=== PATIENT | female | born 1960 | race Caucasian/White ===

== ENCOUNTER → 2017-08-20 09:39 | Outpatient (CLI) | payer BC, SELFPAY ==
[2017-08-20 12:20] LABS: Absolute Lymphocyte Count 1.06 X10^3/ul (0.83-4.51); Absolute Neutrophil Count 2.3 X10^3/uL (2.0-7.7); Basophil# 0.01 X10^3/uL; Basophil% 0.3 % (0-1); Eosinophil# 0.15 X10^3/uL; Eosinophils% 3.9 % (0-5); Hemoglobin 12.2 g/dl (12.0-15.0); Lymphocyte # 1.06 X10^3/ul (4.0); Lymphocyte % 27.5 % (19-41); Mean Corp Hgb Conc 33.9 g/gl (32-36); Mean Corpuscular Hgb 31.4 pg (27.0-32.0); Mean Corpuscular Volume 92.5 fL (81-99); Mean Platelet Vol. 10.6 fl (6.2-12.0); Monocyte# 0.37 X10^3/uL; Monocyte% 9.6 % (0-10); Neutrophil # 2.26 X10^3/uL (2.7-7.7); Neutrophil % 58.4 % (47-70); Platelet Count 64 K/mm3 (150-450); RBC Distribution Width CV 14.1 % (11.6-14.6); RBC Distribution Width SD 46.6 fl (35.1-43.9); Red Blood Count 3.89 M/mm3 (4.2-5.4); White Blood Count 3.9 K/mm3 (4.4-11.0)
[2017-08-20 12:31] LABS: Ferritin 23 ng/mL (8-252); Iron 92 ug/dL (50-170); Iron Binding Capacity,Total 303 ug/dL (250-450); PERCENT IRON SATURATION 30.4 % (15.0-55.0)
[2017-08-20 12:40] LABS: POSITIVE COUNT NO; POSITIVE DIFFERENTIAL NO; POSITIVE MORPHOLOGY NO
[2017-08-20 17:40] LABS: Xtra Tube EP Lab EXTRA TUBE
== END ==
PROVIDERS: Family Provider Family Medicine; PCP Family Medicine; Visit Provider Internal Medicine Hematology & Oncology
DX: D50.9 Iron deficiency anemia, unspecified (principal); D69.6 Thrombocytopenia, unspecified
CPT/HCPCS: 36415; 82728; 83540; 83550; 85025

== ENCOUNTER → 2017-10-21 09:51 | Outpatient (CLI) | payer BC, SELFPAY ==
[2017-10-21 13:00] LABS: Cholesterol 143 mg/dL (200); High Density Lipoprotein 40 mg/dL; Triglycerides 131 mg/dL; Very Low Density Lipoprotein 26 mg/dL (5-40)
== END ==
PROVIDERS: Family Provider Family Medicine; PCP Family Medicine; Visit Provider Family Medicine
DX: E11.65 Type 2 diabetes mellitus with hyperglycemia (principal)
CPT/HCPCS: 36415; 80061; 84443

== ENCOUNTER → 2018-02-25 10:13 | Outpatient (CLI) | payer BC, SELFPAY ==
[2018-02-25 12:27] LABS: Absolute Lymphocyte Count 1.03 X10^3/ul (0.83-4.51); Absolute Neutrophil Count 2.4 X10^3/uL (2.0-7.7); Basophil# 0.01 X10^3/uL; Basophil% 0.3 % (0-1); Eosinophil# 0.13 X10^3/uL; Eosinophils% 3.3 % (0-5); Hematocrit 38.3 % (37-47); Hemoglobin 12.5 g/dl (12.0-15.0); Lymphocyte # 1.03 X10^3/ul (4.0); Lymphocyte % 26.3 % (19-41); Mean Corp Hgb Conc 32.6 g/gl (32-36); Mean Corpuscular Hgb 31.4 pg (27.0-32.0); Mean Corpuscular Volume 96.2 fL (81-99); Mean Platelet Vol. 10.9 fl (6.2-12.0); Monocyte# 0.31 X10^3/uL; Monocyte% 7.9 % (0-10); Neutrophil # 2.43 X10^3/uL (2.7-7.7); Neutrophil % 62.2 % (47-70); Platelet Count 52 K/mm3 (150-450); RBC Distribution Width CV 13.4 % (11.6-14.6); RBC Distribution Width SD 46.7 fl (35.1-43.9); Red Blood Count 3.98 M/mm3 (4.2-5.4); White Blood Count 3.9 K/mm3 (4.4-11.0)
[2018-02-25 12:34] LABS: POSITIVE COUNT NO; POSITIVE DIFFERENTIAL NO; POSITIVE MORPHOLOGY NO
[2018-02-25 12:46] LABS: Ferritin 40 ng/mL (8-252); Iron 52 ug/dL (50-170); Iron Binding Capacity,Total 299 ug/dL (250-450); PERCENT IRON SATURATION 17.4 % (15.0-55.0)
== END ==
PROVIDERS: Internal Medicine Hematology & Oncology; Family Provider Family Medicine; PCP Family Medicine; Visit Provider Family Medicine
DX: D89.0 Polyclonal hypergammaglobulinemia (principal); D50.9 Iron deficiency anemia, unspecified; D61.818 Other pancytopenia
CPT/HCPCS: 36415; 82728; 83540; 83550; 85025

== ENCOUNTER → 2018-07-27 10:02 | Outpatient (CLI) | payer BC, SELFPAY ==
[2018-07-27 12:35] LABS: Hemoglobin A1c 5.9 % (4.2-6.3)
[2018-07-27 12:40] LABS: ALB/GLOB Ratio 0.8 RATIO (0.9-2.4); AST(SGOT) 38 U/L (15-37); Alanine Aminotransfer ALT/SGPT 29 U/L (13-56); Albumin, Serum 2.8 g/dL (3.2-5.0); Alkaline Phosphatase 94 U/L (45-117); Anion Gap 7 (5-15); BUN 17 mg/dL (7-18); BUN/Creat Ratio 17.6 RATIO (10-20); Calcium,Total 8.5 mg/dL (8.5-10.1); Chloride 112 mmol/L (98-107); Creatinine, Serum 0.96 mg/dL (0.55-1.02); EST Glomerular Filtration Rate 64 mL/min (>60); Est Glom Filt Rate - Afr Amer 77 mL/min (>60); Globulin 3.4 g/dL (2.2-4.2); Glucose 108 mg/dL (74-106); Protein, Total 6.2 g/dL (6.4-8.2); Sodium Level 143 mmol/L (136-145); Thyroid Stim Hormone (TSH) 3.44 uIU/mL (0.358-3.74)
== END ==
PROVIDERS: Family Provider Family Medicine; PCP Family Medicine; Visit Provider Family Medicine
DX: E11.8 Type 2 diabetes mellitus with unspecified complications (principal)
CPT/HCPCS: 36415; 80053; 83036; 84443

== ENCOUNTER → 2018-08-31 10:23 | Outpatient (CLI) | payer BC, SELFPAY ==
[2018-03-04 09:09] VITALS: BMI 44.4
[2018-08-31 12:13] LABS: Absolute Lymphocyte Count 1.14 X10^3/ul (0.83-4.51); Absolute Neutrophil Count 2.9 X10^3/uL (2.0-7.7); Basophil# 0.01 X10^3/uL; Basophil% 0.2 % (0-1); Eosinophil# 0.16 X10^3/uL; Eosinophils% 3.6 % (0-5); Lymphocyte # 1.14 X10^3/ul (4.0); Lymphocyte % 25.7 % (19-41); Mean Corp Hgb Conc 32.5 g/gl (32-36); Mean Corpuscular Volume 98.5 fL (81-99); Mean Platelet Vol. 10.4 fl (6.2-12.0); Monocyte# 0.27 X10^3/uL; Monocyte% 6.1 % (0-10); Neutrophil # 2.86 X10^3/uL (2.7-7.7); Neutrophil % 64.4 % (47-70); POSITIVE COUNT NO; POSITIVE DIFFERENTIAL NO; POSITIVE MORPHOLOGY NO; Platelet Count 54 K/mm3 (150-450); RBC Distribution Width CV 13.9 % (11.6-14.6); RBC Distribution Width SD 49.8 fl (35.1-43.9); Red Blood Count 4.06 M/mm3 (4.2-5.4); White Blood Count 4.4 K/mm3 (4.4-11.0)
[2018-08-31 12:55] LABS: Vitamin B12 973 pg/mL (211-911)
[2018-08-31 12:57] LABS: Ferritin 51 ng/mL (8-252); Iron 102 ug/dL (50-170); Iron Binding Capacity,Total 295 ug/dL (250-450); PERCENT IRON SATURATION 34.6 % (15.0-55.0)
== END ==
PROVIDERS: Family Provider Family Medicine; PCP Family Medicine; Referring Provider Family Medicine; Visit Provider Internal Medicine Hematology & Oncology
DX: D61.818 Other pancytopenia (principal); D64.9 Anemia, unspecified; D89.0 Polyclonal hypergammaglobulinemia
CPT/HCPCS: 36415; 82607; 82728; 83540; 83550; 85025

== ENCOUNTER → 2018-11-09 10:36 | Outpatient (CLI) | payer BC, SELFPAY ==
[2018-09-02 15:34] VITALS: BMI 47.9
[2018-11-09 13:06] LABS: ALB/GLOB Ratio 0.8 RATIO (0.9-2.4); AST(SGOT) 31 U/L (15-37); Alanine Aminotransfer ALT/SGPT 28 U/L (13-56); Albumin, Serum 2.8 g/dL (3.2-5.0); Alkaline Phosphatase 99 U/L (45-117); Anion Gap 6 (5-15); BUN 15 mg/dL (7-18); BUN/Creat Ratio 16.1 RATIO (10-20); Calcium,Total 8.4 mg/dL (8.5-10.1); Chloride 112 mmol/L (98-107); Creatinine, Serum 0.93 mg/dL (0.55-1.02); EST Glomerular Filtration Rate 66 mL/min (>60); Est Glom Filt Rate - Afr Amer 80 mL/min (>60); Globulin 3.4 g/dL (2.2-4.2); Glucose 121 mg/dL (74-106); Protein, Total 6.2 g/dL (6.4-8.2); Sodium Level 143 mmol/L (136-145); Thyroid Stim Hormone (TSH) 2.58 uIU/mL (0.358-3.74)
== END ==
PROVIDERS: Family Provider Family Medicine; PCP Family Medicine; Referring Provider Family Medicine; Visit Provider Family Medicine
DX: K76.0 Fatty (change of) liver, not elsewhere classified (principal)
CPT/HCPCS: 36415; 80053; 84443

== ENCOUNTER → 2018-11-18 16:52 | Outpatient (CLI) | payer BC, SELFPAY ==
[2018-09-02 15:34] VITALS: BMI 47.9
--- NOTE | 2018-11-18 16:55 | RAD_ITS ---
STUDY: X-RAY CHEST REASON FOR EXAM: Female, 58 years old. Cough. TECHNIQUE: PA and lateral views of the chest. COMPARISON: April 27, 2017. FINDINGS: There is mildly decreased inspiratory effort when compared to prior study. There is no acute infiltrate or mass. There is no demonstrated pleural abnormality. The heart is mildly enlarged. Normal mediastinum and ruben. Normal visualized pulmonary arteries. Normal visualized aortic arch and descending thoracic aorta. There are diffuse degenerative changes of the visualized thoracic spine. Normal visualized ribs, clavicles, and shoulders. There is no demonstrated abnormality of the visualized soft tissue structures of the upper abdomen. RAD/Chest PA and Lateral IMPRESSION: Mild cardiomegaly without acute pulmonary disease. Electronically Signed: Joseph Bates DO at 19:40 EDT Tel [phone], Service support ,
[2018-11-18 17:34] LABS: Absolute Lymphocyte Count 0.59 X10^3/ul (0.83-4.51); Absolute Neutrophil Count 2.3 X10^3/uL (2.0-7.7); Eosinophil# 0.02 X10^3/uL; Eosinophils% 0.6 % (0-5); Hematocrit 39.1 % (37-47); Hemoglobin 13.6 g/dl (12.0-15.0); Lymphocyte # 0.59 X10^3/ul (4.0); Lymphocyte % 17.7 % (19-41); Mean Corp Hgb Conc 34.8 g/gl (32-36); Mean Corpuscular Hgb 32.4 pg (27.0-32.0); Mean Corpuscular Volume 93.1 fL (81-99); Mean Platelet Vol. 10.6 fl (6.2-12.0); Monocyte# 0.39 X10^3/uL; Monocyte% 11.7 % (0-10); Neutrophil # 2.34 X10^3/uL (2.7-7.7); RBC Distribution Width CV 13.3 % (11.6-14.6); White Blood Count 3.3 K/mm3 (4.4-11.0)
[2018-11-18 17:44] LABS: Differential Indicated SCAN CRITERIA MET; POSITIVE COUNT YES; POSITIVE DIFFERENTIAL YES; POSITIVE MORPHOLOGY NO
[2018-11-18 17:51] LABS: ALB/GLOB Ratio 0.8 RATIO (0.9-2.4); AST(SGOT) 50 U/L (15-37); Alanine Aminotransfer ALT/SGPT 37 U/L (13-56); Albumin, Serum 2.8 g/dL (3.2-5.0); Alkaline Phosphatase 102 U/L (45-117); Anion Gap 6 (5-15); BUN 13 mg/dL (7-18); BUN/Creat Ratio 10.6 RATIO (10-20); Calcium,Total 8.4 mg/dL (8.5-10.1); Chloride 105 mmol/L (98-107); Creatinine, Serum 1.23 mg/dL (0.55-1.02); EST Glomerular Filtration Rate 48 mL/min (>60); Est Glom Filt Rate - Afr Amer 58 mL/min (>60); Globulin 3.4 g/dL (2.2-4.2); Glucose 120 mg/dL (74-106); Potassium 4.2 mmol/L (3.5-5.1); Protein, Total 6.2 g/dL (6.4-8.2); Sodium Level 138 mmol/L (136-145)
[2018-11-18 17:57] LABS: Platelet Count 44 K/mm3 (150-450)
[2018-11-18 18:03] LABS: Anisocytosis RARE; Macrocytosis RARE; Platelet Estimate MKD DEC (ADEQ)
[2018-11-22 09:10] LABS: Pathologist Review Reviewed
== END ==
PROVIDERS: Family Provider Family Medicine; PCP Family Medicine; Referring Provider Family Medicine; Visit Provider Family Medicine
DX: R10.11 Right upper quadrant pain (principal); R05 Cough; R68.89 Other general symptoms and signs
CPT/HCPCS: 36415; 71046; 80053; 85025; 86140

== ENCOUNTER → 2019-02-16 16:10 | Outpatient (CLI) | payer BC, SELFPAY ==
[2018-09-02 15:34] VITALS: BMI 47.9
[2019-02-16 17:41] LABS: International Normalized Ratio 1.1; Prothrombin Time (Protime)PT. 14.1 SECONDS (11.7-14.9)
[2019-02-16 17:42] LABS: Partial Thromboplast Time 32.5 Seconds (24.1-36.2)
[2019-02-16 17:52] LABS: ALB/GLOB Ratio 0.7 RATIO (0.9-2.4); AST(SGOT) 26 U/L (15-37); Alanine Aminotransfer ALT/SGPT 20 U/L (13-56); Albumin, Serum 2.6 g/dL (3.2-5.0); Alkaline Phosphatase 109 U/L (45-117); Anion Gap 5 (5-15); BUN 17 mg/dL (7-18); BUN/Creat Ratio 16.2 RATIO (10-20); Calcium,Total 9.1 mg/dL (8.5-10.1); Chloride 110 mmol/L (98-107); Creatinine, Serum 1.05 mg/dL (0.55-1.02); EST Glomerular Filtration Rate 58 mL/min (>60); Est Glom Filt Rate - Afr Amer 70 mL/min (>60); Globulin 3.8 g/dL (2.2-4.2); Glucose 153 mg/dL (74-106); Potassium 3.8 mmol/L (3.5-5.1); Protein, Total 6.4 g/dL (6.4-8.2); Sodium Level 142 mmol/L (136-145)
[2019-02-19 09:32] LABS: ANTINUCLEAR ANTIBODIES DIRECT Negative (Negative); Anti-Mitochondrial AB <20.0 Units (0.0-20.0)
[2019-02-22 08:22] LABS: AFP, Tumor Marker 3.2 ng/mL (0.0-8.3); Anti-Smooth Muscle ABS 6 Units (0-19)
== END ==
PROVIDERS: Family Provider Family Medicine; PCP Family Medicine; Referring Provider Family Medicine; Visit Provider Internal Medicine Gastroenterology
DX: K74.60 Unspecified cirrhosis of liver (principal)
CPT/HCPCS: 36415; 80053; 82105; 83516; 85610; 85730; 86038

== ENCOUNTER → 2019-02-23 14:48 | Outpatient (CLI) | payer BC, SELFPAY ==
[2018-09-02 15:34] VITALS: BMI 47.9
--- NOTE | 2019-02-23 15:06 | CT_ITS ---
STUDY: CT ABDOMEN WITH CONTRAST REASON FOR EXAM: Female, 58 years old. Cirrhosis. Low platelets. RADIATION DOSAGE (If Supplied By Facility): CTDIvol = ( 17.01 ) mGy, DLP = ( 957.59 ) mGycm TECHNIQUE: Transaxial images were obtained post I.V. administration of 100mL IV Isovue 300, and oral contrast. Sagittal and coronal images were reconstructed. Individualized dose optimization techniques were used for this CT. COMPARISON: None. FINDINGS: The visualized lung bases are unremarkable. The visualized portions of the heart are within normal limits. Reduced size of the liver with nodular surface features consistent with cirrhosis. The portal vein is patent with a diameter of 13 mm The gallbladder is contracted. Splenomegaly with a coronal length of 17 cm. Marked enlargement and tortuosity of splenic veins, gastric and esophageal varices and a splenic collateral to the left renal vein/intrinsic splenorenal shunt. Normal pancreas. Normal bilateral adrenal glands. Normal right kidney. Normal left kidney. Normal visualized stomach. Normal small intestine. Normal colon. Normal appendix. Mild calcified plaque of the aorta Normal inferior vena cava. Normal retroperitoneum. Normal abdominal wall. Normal osseous structures. CT/Abdomen WITH IV Contrast IMPRESSION: Small liver size with nodular surface features consistent with cirrhosis. Patent portal vein with a diameter of 13 mm. Splenomegaly with a coronal length of 17 cm. Splenic, gastric and esophageal varices. Intrinsic splenorenal shunt/splenic collateral veins to the left renal vein. Negative for ascites. No acute bowel related findings. Negative for evidence of obstruction, perforation or inflammatory bowel changes. Normal pancreas. Normal kidneys bilaterally. Electronically Signed: Jade Medina MD at 16:02 EDT , Service support ,
== END ==
PROVIDERS: Family Provider Family Medicine; PCP Family Medicine; Referring Provider Internal Medicine Gastroenterology; Visit Provider Internal Medicine Gastroenterology
DX: K74.60 Unspecified cirrhosis of liver (principal); D69.6 Thrombocytopenia, unspecified
CPT/HCPCS: 74160; Q9967

== ENCOUNTER → 2019-02-28 11:22 | Outpatient (CLI) | payer BC, SELFPAY ==
[2018-09-02 15:34] VITALS: BMI 47.9
[2019-02-28 12:27] LABS: Absolute Neutrophil Count 2.7 X10^3/uL (2.0-7.7); Basophil# 0.02 X10^3/uL; Basophil% 0.4 % (0-1); Eosinophil# 0.17 X10^3/uL; Eosinophils% 3.8 % (0-5); Hematocrit 39.8 % (37-47); Hemoglobin 13.3 g/dL (12.0-15.0); Lymphocyte % 29.2 % (19-41); Mean Corp Hgb Conc 33.4 g/dL (32-36); Mean Corpuscular Hgb 32.6 pg (27.0-32.0); Mean Corpuscular Volume 97.5 fL (81-99); Mean Platelet Vol. 10.8 fl (6.2-12.0); Monocyte# 0.28 X10^3/uL; Monocyte% 6.3 % (0-10); NRBC Flagged by Analyzer 0 % (0-5); Neutrophil # 2.67 X10^3/uL (2.7-7.7); Neutrophil % 60.1 % (47-70); Platelet Count 52 K/mm3 (150-450); RBC Distribution Width CV 12.7 % (11.6-14.6); RBC Distribution Width SD 45.7 fl (35.1-43.9); Red Blood Count 4.08 M/mm3 (4.2-5.4); White Blood Count 4.5 K/mm3 (4.4-11.0)
[2019-02-28 19:27] LABS: Xtra Tube EP Lab EXTRA TUBE
== END ==
PROVIDERS: Family Provider Family Medicine; PCP Family Medicine; Referring Provider Family Medicine; Visit Provider Internal Medicine Hematology & Oncology
DX: D69.6 Thrombocytopenia, unspecified (principal)
CPT/HCPCS: 36415; 85025

== ENCOUNTER → 2019-04-25 12:21 | Outpatient (CLI) | payer BC, SELFPAY ==
[2019-03-10 13:03] VITALS: BMI 48.7
[2019-04-25 14:13] LABS: Absolute Lymphocyte Count 1.39 X10^3/uL (0.83-4.51); Absolute Neutrophil Count 3.2 X10^3/uL (2.0-7.7); Basophil# 0.03 X10^3/uL; Basophil% 0.6 % (0-1); Eosinophil# 0.14 X10^3/uL; Eosinophils% 2.7 % (0-5); Hematocrit 38.9 % (37-47); Hemoglobin 12.8 g/dL (12.0-15.0); Lymphocyte # 1.39 X10^3/ul (4.0); Lymphocyte % 26.7 % (19-41); Mean Corp Hgb Conc 32.9 g/dL (32-36); Mean Corpuscular Hgb 32.1 pg (27.0-32.0); Mean Corpuscular Volume 97.5 fL (81-99); Mean Platelet Vol. 10.9 fl (6.2-12.0); Monocyte# 0.41 X10^3/uL; Monocyte% 7.9 % (0-10); NRBC Flagged by Analyzer 0 % (0-5); Neutrophil # 3.23 X10^3/uL (2.7-7.7); Neutrophil % 61.9 % (47-70); POSITIVE COUNT YES; Platelet Count 54 K/mm3 (150-450); RBC Distribution Width CV 13.3 % (11.6-14.6); RBC Distribution Width SD 47.9 fl (35.1-43.9); Red Blood Count 3.99 M/mm3 (4.2-5.4); White Blood Count 5.2 K/mm3 (4.4-11.0)
[2019-04-25 14:14] LABS: Differential Indicated SCAN CRITERIA MET
[2019-04-25 14:34] LABS: Vitamin B12 1025 pg/mL (211-911)
[2019-04-25 14:40] LABS: ALB/GLOB Ratio 0.8 RATIO (0.9-2.4); AST(SGOT) 36 U/L (15-37); Alanine Aminotransfer ALT/SGPT 24 U/L (13-56); Albumin, Serum 2.9 g/dL (3.2-5.0); Alkaline Phosphatase 85 U/L (45-117); Anion Gap 8 (5-15); BUN 22 mg/dL (7-18); BUN/Creat Ratio 18.5 RATIO (10-20); Calcium,Total 8.6 mg/dL (8.5-10.1); Chloride 109 mmol/L (98-107); Creatinine, Serum 1.19 mg/dL (0.55-1.02); EST Glomerular Filtration Rate 50 mL/min (>60); Est Glom Filt Rate - Afr Amer 60 mL/min (>60); Ferritin 95 ng/mL (8-252); Globulin 3.7 g/dL (2.2-4.2); Glucose 95 mg/dL (74-106); Magnesium 2.1 mg/dL (1.6-2.6); Potassium 4.4 mmol/L (3.5-5.1); Protein, Total 6.6 g/dL (6.4-8.2); Sodium Level 142 mmol/L (136-145); Thyroid Stim Hormone (TSH) 2.85 uIU/mL (0.358-3.74)
== END ==
PROVIDERS: Family Provider Family Medicine; PCP Family Medicine; Visit Provider Family Medicine
DX: K76.0 Fatty (change of) liver, not elsewhere classified (principal); R20.2 Paresthesia of skin; R60.9 Edema, unspecified
CPT/HCPCS: 36415; 80053; 82607; 82728; 82746; 83735; 84443; 85025

== ENCOUNTER 2019-08-09 14:43 | Emergency (ER) | payer BC, SELFPAY ==
[2019-03-10 13:03] VITALS: BMI 48.7
[2019-08-09 14:45] VITALS: BP 116/60; PULSE 104; RESP 18; TEMP 36.6; O2SAT 97; BMI 48.1
[2019-08-09 14:54] VITALS: BP 116/60; PULSE 104; RESP 16; RESP 18; TEMP 36.6; O2SAT 97
--- NOTE | 2019-08-09 15:10 | VDLE_ITS ---
Reason For Study: pain RIGHT LEFT GSV is normal. CFV is compressible, spontaneous, phasic, CFV is compressible, spontaneous, phasic, competent, and demonstrates normal competent and demonstrates normal augmentation. augmentation. FV is compressible, spontaneous, phasic, competent and demonstrates normal augmentation. POP V is compressible, spontaneous, phasic, competent and demonstrates normal augmentation. T/P Trunk is compressible. PTV is compressible. RT PerV is compressible. Procedure Exam performed portable in ED. The exam was diagnostic. A preliminary report was called and/or faxed to ED staff. Interpretation Summary There is no evidence of right lower extremity deep vein thrombosis. Right great saphenous vein appears patent and compressible segmentally. Patent and compressible left common femoral vein Ordering Physician: Genesis Diamond Performed By: Vladislav Mohamud RVT
--- NOTE | 2019-08-09 15:19 | ED.DCSUM_ITS ---
- ER Visit Summary Date of Service: 08/09/19 Chief Complaint: [Pain and swelling to the right leg] History of Present Illness: The patient is a 58 F [presents to the emergency department complaint of pain and swelling to the right leg that started 5 days ago. Patient states that the leg was more red than it currently is. She will like maybe is gotten a little bit better in the last couple of days. She denies any chest pain or shortness of breath. Patient was told by her primary care physician to come in and get evaluated. She denies recent travel or surgery. No prior history of PE or DVT. Patient does have history of low platelet count. Patient denies any trauma to her leg. Patient has history of diabetes, anemia, gastritis, and pancytopenia.] Physical Examination: [HEENT-PERRLA, EOMI. Cranial nerves II through XII grossly intact. TMs clear. Mucous membranes moist. No adenopathy. Cardiovascular-regular rate and rhythm without murmur or ectopy Lungs-clear to auscultation, chest wall stable without crepitus or subcu emphysema Abdomen-normoactive bowel sounds, soft, nontender, no rebound or rigidity, no peritoneal signs. Extremities-intact ?4, normal range of motion, normal pulses. Right leg-patient does have soft tissue swelling noted laterally over the calf with some induration noted as well as posterior aspect of the calf. No significant discoloration noted to the skin. No significant erythema or warmth. Patient has normal dorsal pedal and posterior tibial pulses as well as popliteal pulses. No ropes or cords palpated.] Test Results: [CBC with differential obtained showed a white count 6.6, hemoglobin 13, hematocrit 39, platelet 72,000. Her thrombocytopenia is chronic and actually her platelet count is higher than it has been chronically. Chemistries were unremarkable. BUN was 24 and creatinine 1.34. Venous Doppler of the right lower extremity obtained was negative for DVT.] Emergency Department Course and Treatment: [Case was discussed with patient's primary care physician Dr. Deni Daily who will see patient in follow-up in the office.] Treatment Plan: [Follow-up with primary care physician in 5 to 7 days. Patient advised to elevate the extremity and use Tylenol for discomfort I suspect patient likely has soft tissue hematoma from spontaneous rupture of blood vessel versus partial muscle tear.] Disposition: [Discharged home in stable condition.] Impression: [Right calf pain] This note was generated with [employer] dictation software. It may contain incorrect words, spelling, and punctuation that were not noted in review of the chart prior to signing ED Disposition - Plan for ED Patient: Referrals: Deni Daily MD [Primary Care Provider] -
[2019-08-09 15:34] LABS: Absolute Lymphocyte Count 1.44 X10^3/uL (0.83-4.51); Absolute Neutrophil Count 4.4 X10^3/uL (2.0-7.7); Basophil# 0.03 X10^3/uL; Basophil% 0.5 % (0-1); Eosinophil# 0.12 X10^3/uL; Eosinophils% 1.8 % (0-5); Hematocrit 39.2 % (37-47); Hemoglobin 13.4 g/dL (12.0-15.0); Lymphocyte # 1.44 X10^3/ul (4.0); Lymphocyte % 21.7 % (19-41); Mean Corp Hgb Conc 34.2 g/dL (32-36); Mean Corpuscular Hgb 33.2 pg (27.0-32.0); Mean Platelet Vol. 10.4 fl (6.2-12.0); Monocyte# 0.59 X10^3/uL; Monocyte% 8.9 % (0-10); NRBC Flagged by Analyzer 0 % (0-5); Neutrophil # 4.42 X10^3/uL (2.7-7.7); Neutrophil % 66.6 % (47-70); POSITIVE COUNT YES; Platelet Count 72 K/mm3 (150-450); RBC Distribution Width SD 46.5 fl (35.1-43.9); Red Blood Count 4.04 M/mm3 (4.2-5.4); White Blood Count 6.6 K/mm3 (4.4-11.0)
[2019-08-09 15:52] LABS: Differential Indicated SCAN CRITERIA MET
[2019-08-09 15:56] LABS: Anion Gap 6 (5-15); BUN 24 mg/dL (7-18); BUN/Creat Ratio 17.9 RATIO (10-20); Calcium,Total 9.2 mg/dL (8.5-10.1); Chloride 106 mmol/L (98-107); Creatinine, Serum 1.34 mg/dL (0.55-1.02); EST Glomerular Filtration Rate 43 mL/min (>60); Est Glom Filt Rate - Afr Amer 52 mL/min (>60); Estimated Creatinine Clearance 37.08 ml/min; Glucose 113 mg/dL (74-106); Potassium 4.6 mmol/L (3.5-5.1); Sodium Level 139 mmol/L (136-145)
[2019-08-09 15:57] LABS: Anisocytosis RARE; Macrocytosis RARE; Platelet Estimate MOD DEC (ADEQ); Red Cell Morphology N CHROM NORMAL (NORM C&C)
[2019-08-09 15:58] LABS: Platelet Morphology LARGE
--- NOTE | 2019-08-09 16:09 | ED.DEP ---
ED Disposition - Plan for ED Patient: Instructions: ED Peripheral Edema, Bilateral, Hematoma Referrals: Deni Daily MD [Primary Care Provider] - 5-7 Days
[2019-08-09 16:14] VITALS: BP 134/68; PULSE 71; RESP 16; O2SAT 97
== END 2019-08-09 16:15 | disposition home or self-care (01) ==
LOC: ED 15:43
PROVIDERS: Emergency Provider Emergency Medicine; PCP Family Medicine
DX: M79.661 Pain in right lower leg (principal); E11.9 Type 2 diabetes mellitus without complications; D61.818 Other pancytopenia; Z79.84 Long term (current) use of oral 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 drugs
CPT/HCPCS: 80048; 85025; 93971; 99283

== ENCOUNTER → 2019-12-19 08:54 | Outpatient (CLI) | payer BC, SELFPAY ==
--- NOTE | 2019-12-19 08:58 | US_ITS ---
STUDY: ABDOMINAL ULTRASOUND - RIGHT UPPER QUADRANT REASON FOR VISIT: Female, 59 years old CIRRHOSIS TECHNIQUE: Ultrasound evaluation of the right upper quadrant was performed with real-time and static knight-scale imaging. TECHNICAL QUALITY: Adequate. COMPARISON: None. FINDINGS: Liver: The liver measures 15.5 cm. There is increased echogenicity consistent with fatty infiltration. The bile ducts are within normal limits. There is hepatic color flow. The direction of portal flow is hepatopetal. There is no demonstrated mass lesion. The liver is lobular in contour. Gallbladder: The patient is status post cholecystectomy. Common Bile Duct (C.B.D.): The common bile duct measures 2.7 mm. Pancreas: Normal size of the head, body and tail of the pancreas. There is normal echogenicity of the pancreas. There is no demonstrated pancreatic mass or cyst. Right Kidney: Normal size of the right kidney. The right kidney measures 10.2 x 5.4 x 4.2 cm. Normal renal cortex. The right cortex measures 1.0 cm. There is an 8 x 7 x 5 mm right renal cyst. There is no right hydronephrosis. US/Liver IMPRESSION: Increased hepatic echogenicity which may represent fatty replacement or fibrosis. The liver is lobular in contour. Status post cholecystectomy. Small right renal cyst. There is no evidence of ascites. Electronically Signed: Sohan Cerna MD at 19:44 EDT , Service support ,
== END ==
PROVIDERS: PCP Family Medicine; Referring Provider Internal Medicine Gastroenterology; Visit Provider Internal Medicine Gastroenterology
DX: K74.60 Unspecified cirrhosis of liver (principal)
CPT/HCPCS: 76705

== ENCOUNTER → 2020-01-20 15:01 | Outpatient (CLI) | payer BC, SELFPAY ==
[2020-01-20 17:33] LABS: ALB/GLOB Ratio 0.7 RATIO (0.9-2.4); AST(SGOT) 30 U/L (15-37); Alanine Aminotransfer ALT/SGPT 29 U/L (13-56); Albumin, Serum 2.6 g/dL (3.2-5.0); Alkaline Phosphatase 102 U/L (45-117); Anion Gap 3 (5-15); BUN 12 mg/dL (7-18); Calcium,Total 8.6 mg/dL (8.5-10.1); Chloride 111 mmol/L (98-107); EST Glomerular Filtration Rate 61 mL/min (>60); Est Glom Filt Rate - Afr Amer 74 mL/min (>60); Globulin 3.5 g/dL (2.2-4.2); Glucose 154 mg/dL (74-106); Potassium 3.8 mmol/L (3.5-5.1); Protein, Total 6.1 g/dL (6.4-8.2); Sodium Level 142 mmol/L (136-145)
[2020-01-20 17:39] LABS: International Normalized Ratio 1.3; Prothrombin Time (Protime)PT. 15.4 SECONDS (11.7-14.9)
[2020-01-20 17:40] LABS: Partial Thromboplast Time 33.5 Seconds (24.1-36.2)
[2020-01-23 04:42] LABS: AFP, Tumor Marker 3.8 ng/mL (0.0-8.3)
== END ==
PROVIDERS: PCP Family Medicine; Referring Provider Family Medicine; Visit Provider Internal Medicine Gastroenterology
DX: K74.60 Unspecified cirrhosis of liver (principal)
CPT/HCPCS: 36415; 80053; 82105; 85610; 85730

== ENCOUNTER → 2020-04-30 15:01 | Outpatient (CLI) | payer BC, SELFPAY ==
[2020-04-30 17:45] LABS: Absolute Lymphocyte Count 1.28 X10^3/uL (0.83-4.51); Basophil# 0.03 X10^3/uL; Basophil% 0.4 % (0-1); Eosinophil# 0.18 X10^3/uL; Eosinophils% 2.6 % (0-5); Hematocrit 40.6 % (37-47); Hemoglobin 13.5 g/dL (12.0-15.0); Lymphocyte # 1.28 X10^3/ul (4.0); Lymphocyte % 18.3 % (19-41); Mean Corp Hgb Conc 33.3 g/dL (32-36); Mean Corpuscular Hgb 33.3 pg (27.0-32.0); Mean Corpuscular Volume 100.2 fL (81-99); Mean Platelet Vol. 11.6 fl (6.2-12.0); Monocyte# 0.51 X10^3/uL; Monocyte% 7.3 % (0-10); NRBC Flagged by Analyzer 0 % (0-5); Neutrophil # 4.99 X10^3/uL (2.7-7.7); Neutrophil % 71.1 % (47-70); POSITIVE COUNT YES; Platelet Count 67 K/mm3 (150-450); RBC Distribution Width CV 13.1 % (11.6-14.6); Red Blood Count 4.05 M/mm3 (4.2-5.4)
[2020-04-30 17:56] LABS: International Normalized Ratio 1.1; Prothrombin Time (Protime)PT. 13.7 SECONDS (11.7-14.9)
[2020-04-30 18:05] LABS: Differential Indicated SCAN CRITERIA MET
[2020-04-30 18:09] LABS: ALB/GLOB Ratio 0.8 RATIO (0.9-2.4); AST(SGOT) 29 U/L (15-37); Alanine Aminotransfer ALT/SGPT 31 U/L (13-56); Alkaline Phosphatase 84 U/L (45-117); Anion Gap 7 (5-15); BUN 46 mg/dL (7-18); BUN/Creat Ratio 20.5 RATIO (10-20); Calcium,Total 9.5 mg/dL (8.5-10.1); Chloride 102 mmol/L (98-107); Creatinine, Serum 2.24 mg/dL (0.55-1.02); EST Glomerular Filtration Rate 24 mL/min (>60); Est Glom Filt Rate - Afr Amer 29 mL/min (>60); Globulin 3.8 g/dL (2.2-4.2); Glucose 118 mg/dL (74-106); Potassium 4.3 mmol/L (3.5-5.1); Protein, Total 6.8 g/dL (6.4-8.2); Sodium Level 136 mmol/L (136-145)
[2020-04-30 18:35] LABS: Platelet Estimate MOD DEC (ADEQ)
== END ==
PROVIDERS: PCP Family Medicine; Referring Provider Family Medicine; Visit Provider Family Medicine
DX: D69.6 Thrombocytopenia, unspecified (principal); K74.60 Unspecified cirrhosis of liver
CPT/HCPCS: 36415; 80053; 82140; 85025; 85610

== ENCOUNTER → 2020-05-29 14:31 | Outpatient (CLI) | payer BC, SELFPAY ==
[2020-05-29 18:28] LABS: Albumin, Serum 3.4 g/dL (3.2-5.0); BUN 38 mg/dL (7-18); BUN/Creat Ratio 16.2 RATIO (10-20); Calcium,Total 9.2 mg/dL (8.5-10.1); Chloride 104 mmol/L (98-107); Creatinine, Serum 2.35 mg/dL (0.55-1.02); EST Glomerular Filtration Rate 23 mL/min (>60); Est Glom Filt Rate - Afr Amer 27 mL/min (>60); Glucose 98 mg/dL (74-106); Phosphorus 3.2 mg/dL (2.5-4.9); Potassium 3.8 mmol/L (3.5-5.1); Sodium Level 138 mmol/L (136-145)
[2020-09-06 12:33] LABS: Aldosterone, Serum 6.1 ng/dL (0.0-30.0)
== END ==
PROVIDERS: PCP Family Medicine; Visit Provider Family Medicine
DX: K74.60 Unspecified cirrhosis of liver (principal); N18.31 Chronic kidney disease, stage 3a
CPT/HCPCS: 36415; 80069; 82088; 83735; 84244

== ENCOUNTER → 2020-07-12 | Outpatient (CLI) | payer BC, SELFPAY ==
[2020-07-04 11:19] VITALS: BMI 48.7
[2020-07-12 18:25] LABS: Creatinine, Urine (random) < 13.00 mg/dL (NO RANGE EST.); Urine Sodium 126 mmol/L (Not Establ.)
== END | disposition home or self-care (01) ==
LOC: LABSPEC 14:40
PROVIDERS: PCP Family Medicine; Visit Provider Internal Medicine Nephrology
DX: N18.4 Chronic kidney disease, stage 4 (severe) (principal)
CPT/HCPCS: 82570; 84300

== ENCOUNTER → 2020-07-19 13:57 | Outpatient (CLI) | payer BC, SELFPAY ==
[2020-07-04 11:19] VITALS: BMI 48.7
--- NOTE | 2020-07-19 14:00 | US_ITS ---
STUDY: RENAL ULTRASOUND - COMPLETE REASON FOR EXAM: Female, 59 years old. CKD STAGE 4 TECHNIQUE: Ultrasound evaluation of the kidneys was performed with real-time and static stephens-scale imaging. COMPARISON: None. FINDINGS: RIGHT KIDNEY: Normal location of the right kidney, which is normal in size. The right kidney measures 9.1 cm x 4.8 cm x 4.1 cm. There is a normal cortex of the right kidney. The renal cortex measures 1.0 cm. There is no right renal mass or cyst. There are no right renal calculi. There is no right hydronephrosis. DISTAL RIGHT URETER: There is non-visualization of the distal right ureter. There is no demonstrated right ureterovesical junction calculus. There is a visualized right ureteral jet. LEFT KIDNEY: Normal location of the left kidney, which is normal in size. The left kidney measures 10.3 cm x 4.9 cm x 4.5 cm. There is a normal cortex of the left kidney. The renal cortex measures 1.0 cm. There is no left renal mass or cyst. There are no left renal calculi. There is no left hydronephrosis. DISTAL LEFT URETER: There is non-visualization of the distal left ureter. There is no demonstrated left ureterovesical junction calculus. There is a visualized left ureteral jet. Incidental note is made of splenomegaly. The spleen measures 21 cm x 9.6 x 8.9 cm. BLADDER: The distended urinary bladder has a volume of 47 ml. US/Kidney and Bladder IMPRESSION: Splenomegaly. Electronically Signed: Mac Hua MD at 14:53 EST , Service support ,
== END ==
LOC: US 13:58
PROVIDERS: PCP Family Medicine; Visit Provider Internal Medicine Nephrology
DX: N18.4 Chronic kidney disease, stage 4 (severe) (principal)
CPT/HCPCS: 76770

== ENCOUNTER 2020-07-31 06:43 | Day surgery (SDC) | payer BC, SELFPAY ==
[2020-07-04 11:19] VITALS: BMI 48.7
[2020-07-30 10:02] LABS: Hematocrit 39.5 % (37-47); Hemoglobin 13.4 g/dL (12.0-15.0); Mean Corp Hgb Conc 33.9 g/dL (32-36); Mean Corpuscular Hgb 32.9 pg (27.0-32.0); Mean Corpuscular Volume 97.1 fL (81-99); Mean Platelet Vol. 10.2 fl (6.2-12.0); POSITIVE COUNT YES; Platelet Count 60 K/mm3 (150-450); RBC Distribution Width CV 12.6 % (11.6-14.6); RBC Distribution Width SD 45.1 fl (35.1-43.9); Red Blood Count 4.07 M/mm3 (4.2-5.4); White Blood Count 4.8 K/mm3 (4.4-11.0)
[2020-07-30 10:19] LABS: Hemoglobin A1c 5.9 % (3.8-5.6)
--- NOTE | 2020-07-30 20:42 | PCM.HP.BLA ---
History and Physical Date of Admission: 07/31/20 HISTORY OF PRESENT ILLNESS Patient is a 59 year old female who presents for evaluation for TBSE. She has concerns about a lesion on her right lateral forehead that has increased in size over the last several months and has developed irregular borders and has developed a cutaneous horn component. There is also an erythematous lesion on her right upper lip by the perialar area that has increased in size over the last several months and has developed irregular borders. She denies fever. She denies trauma. She denies drainage or bleeding. She comes in today for further evaluation and treatment. 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 Back problem Cleft palate and cleft lip Colonoscopy planned Diabetes 1.5, managed as type 2 Dilantin syndrome Hearing deficit Kidney stones PAST SURGICAL HISTORY LEEP dilation and curettage corrected cleft lip and palate cholecystectomy ALLERGIES meperidine [From Demerol] adhesive tape MEDICATIONS Fluticasone 110 Mcg [Flovent (SP)] Fluticasone/Salmeterol [Advair 250/50 Mcg Diskus] Lisinopril [Zestril] metFORMIN HCl [Glucophage] Ferrous Sulfate Potassium Chloride [K-Dur] Magnesium Multivitamin [Multiple Vitamins] Furosemide [Lasix] Empagliflozin [Jardiance] FAMILY HISTORY Father - COPD (chronic obstructive pulmonary disease), Anemia, Depression, Heart disease, Skin cancer Mother - Heart disease, Hypertension, Hypocalcemia, Seizures, Psychiatric diagnosis, Depression, Osteoporosis SOCIAL HISTORY Smoking Status: Never smoker REVIEW OF SYSTEMS General - Denies fever, fatigue, and weight loss. Eyes - Denies cataracts and glaucoma. ENT - Denies nasal congestion and sore throat. Has a history of bilateral cleft lip and palate. Has some hearing problems. Endocrine - States she has excessive thirst and urination. Has DM type 2 on medication. Skin - Denies a personal history of skin cancer but she has a family history of skin cancer. She has an enlarging lesion right lateral forehead with a cutaneous horn component and right upper lip by the perialar area. Musculoskeletal - Denies joint pain, joint stiffness, weakness of muscles and joints, and arthritis. Has back pain. History of back problems. Neuro - Denies headaches. Cardiovascular - Denies chest pain, fatigue, and shortness of breath with exertion. Psych - Denies anxiety and depression. Respiratory - Denies chronic cough and shortness of breath. Gastrointestinal - Denies nausea, vomiting, diarrhea, and constipation. Hematologic - States she bruises easily and has low platelets. Has anemia. Genitourinary - Denies hematuria and urinary frequency. History of kidney stones. PHYSICAL EXAMINATION General - Alert and oriented. HEENT - PERRL. EOMI. Throat is clear. On the right lateral forehead is a 5 mm lesion that is nodular with a cutaneous horn component. Has irregular borders. No ulceration. Lesion is nontender. On the right upper lip by the perialar area is an erythematous lesion that measures 3 mm. Has irregular borders. No ulceration. Lesion is nontender. No other suspicious lesions noted. Neck - Supple and non-tender. No cervical adenopathy. No suspicious lesions noted. Lungs- Clear to auscultation. Heart - Regular rate and rhythm. Abdomen - Soft and non distended. Extremities - FROM. No axillary adenopathy. Radial pulses are palpable. No suspicious lesions noted. Neuro - CN II-XII grossly intact. Psych - Normal mood and affect. ASSESSMENT 1. 5 mm cutaneous horn lesion right lateral forehead. 2. 3 mm erythematous lesion right upper lip by the perialar area. 3. Family history of skin cancer. 4. Diabetes mellitus. 5. Thrombocytopenia. PLAN Recommend excision of these lesions (right lateral forehead and right upper lip by the perialar area) and send them to Pathology for analysis to rule out carcinoma. The right lateral forehead lesion has a cutaneous horn component that will need a full thickness excision. If carcinoma is present, then further excision will be done with skin flap reconstruction. Surgery will be done on an outpatient basis under general anesthesia. Patient was informed of the risks and complications of the procedure including alternatives to surgery. These were discussed with the patient personally. Patient voices understanding and wishes to proceed. Some of the risks and complications were included in a form from the [place] [employer]. She has diabetes mellitus and for elective surgery, the HgbA1c needs to be less than 8. Her last result from 07/30/20 was 5.9. She has thrombocytopenia. Her last Platelet count from 04/30/20 was 67,000. Will have Platelets available for the surgery. We discussed the current risks associated with COVID-19. While it is understood that there is a community spread of COVID-19, the risk of joby COVID-19 while at [facility] ([facility]) is very low; however, the risk cannot be completely mitigated because of the community spread of the disease. We discussed in detail the risk of exposure to and/or potential harm posed by the COVID-19 virus with having a surgery/procedure at this time versus the risk of delaying the surgery/procedure. It is not possible to know either the risk of delaying the surgery or procedure or chance of getting an infection with perfect accuracy, but a joint decision was made to proceed at this time with the scheduled surgery/procedure as indicated on the consent form. Patient was notified that we will need to comply with any screening or testing [facility] wishes to perform or that surgery may be delayed for any positive results. Discussed with the patient that I was tested for COVID-19 on 12/22/19 which was negative and on 01/05/20 which was negative and on 01/19/20 which was negative and on 02/02/20 which was negative and on 02/16/20 which was negative and on 03/08/20 which was negative and on 03/29/20 which was negative and on 05/03/20 which was negative and on 05/24/20 which was negative and on 06/12/20 which was negative. My testing regimen at this time is to be COVID-19 tested every 2 weeks or so. I received the COVID-19 vaccine (Moderna) on 06/20/20 and the second vaccine dose was received on 07/18/20. Procedure Criteria Procedure Type: Elective COVID Risk Discussion: The surgeon/proceduralist and patient have discussed in detail the risk of exposure to and/or potential harm posed by the COVID-19 virus with having a surgery/procedure at this time versus the risk of delaying the surgery/procedure. It is not possible to know either the risk of delaying the surgery or procedure or chance of getting an infection with perfect accuracy, but a joint decision was made between the patient and the surgeon/proceduralist to proceed at this time with the scheduled surgery/procedure as indicated on the consent form.
[2020-07-31] VITALS (12 sets, daily range): BP systolic 121–138; BP diastolic 69–88; PULSE 77–87; RESP 16–20; TEMP 36.3–36.7; O2SAT 92–100; BMI 49.6
--- NOTE | 2020-07-31 | LES_PTH ---
PATIENT: RANDI BETH [place] [facility] [place][id number] AGE/SX: 59/F ROOM: RE07/31/[address]: Dr. Jim Newman MD : 1960 BED: DIS: 07/31/2020 SPEC #: [id number] RECD: 07/31/20 10:00 STATUS: PRISCILA REShabbir #: [id number] LYNSEY: 07/31/20 00:[address]: Jim Newman DEPT: SURGICAL PATHOLOGY RECD BY: Harika Unger ENTERED: 07/31/20 10:27 SP TYPE: Lesion OTHR DR: Dr. Deni Daily MD Tissues: A - Skin of forehead B - Skin of lip, NOS Procedures: Frozen Section (charge) Surgery Specimen Level IV HEADER OPERATION: Excision cutaneous horn right lateral forehead with frozen section PRE-OP DIAGNOSIS: 5 mm cutaneous horn lesion right lateral forehead; 3 mm erythematous lesion right upper lip by the perialar area TISSUE SUBMITTED: A - Cutaneous horn lesion right lateral forehead, suture at 12 o'clock, FS 0957, B - Lesion right upper lip by perialar area, FS 0957 FROZEN SECTION DIAGNOSIS A. Cutaneous horn, right lateral forehead, biopsy: Consistent with cutaneous horn and acanthosis negative for carcinoma. B. Lesion right upper lip, by the perialar lip, biopsy: Negative for carcinoma. Mild hyperkeratosis. SJ:ru 07/31/2020 MICROSCOPIC DIAGNOSIS A. Lesion right lateral forehead, biopsy: Cutaneous horn with associated hyperkeratosis, parakeratosis and acanthosis. Actinic change and solar elastosis. See comment. B. Skin lesion right upper lip, biopsy: Solar elastosis and minimal dermal chronic inflammation. No evidence of malignancy. Demodex follicularis. AM:ru 08/01/2020 COMMENT A. The lesion appears to have been completely excised in the planes examined. MICROSCOPIC DESCRIPTION Slides are reviewed. GROSS DESCRIPTION A - Received fresh for frozen section diagnosis labeled with the patient's name is a specimen designated cutaneous horn right lateral forehead. The specimen consists of a piece of perez-white skin measuring 0.5 x 0.3 x 0.2 cm. The specimen is oriented by a suture at 12 o'clock. The 12 o'clock is inked black and 6 o'clock half is inked blue. The specimen is bisected and submitted for frozen section diagnosis in one cassette. / SJ:ru 07/31/20 B - Received fresh for frozen section diagnosis labeled with the patient's name is a specimen designated lesion right upper lid by perialar area. The specimen consists of a piece of perez-white skin measuring 0.6 x 0.2 x 0.1 cm. The entire specimen is submitted for frozen section diagnosis in one cassette. / AM:ru 07/31/20 TC:5 CPT: , 79598 x2, 62763 x2
[2020-07-31] MEDS: Lactated Ringers 1,000 ML 100 ML IV (07:26)
[2020-07-31 08:51] LABS: Bedside Glucose 137 mg/dL (70-110)
[2020-07-31] MEDS: Lidocaine 2% /Epi 1:100 (50ml) 50 ML Vial (09:52)
[2020-07-31] MEDS: Mupirocin Ointment 22gm Tube 1 APPLIC (10:37)
[2020-07-31] MEDS: Silver Nitrate (BKC) 1 EACH (10:37)
--- NOTE | 2020-07-31 10:42 | PCM.OPRPT ---
Report of Operation Date of Procedure: 07/31/20 Pre-Operative Diagnosis: 1. 5 mm cutaneous horn lesion right lateral forehead. 2. 3 mm erythematous lesion right upper lip by the perialar area. 3. Family history of skin cancer. 4. Diabetes mellitus. 5. Thrombocytopenia. Post-Operative Diagnosis: 1. 5 mm actinic lesion right lateral forehead. 2. 3 mm hyperkeratosis and actinic lesion right upper lip by the perialar area. 3. Family history of skin cancer. 4. Diabetes mellitus. 5. Thrombocytopenia. Surgery/Procedure Performed:: 1. Excision 5 mm actinic lesion right lateral forehead with lateral horizontal advancement skin flap reconstruction (2.5 cm2). 2. Intradermal excision 3 mm hyperkeratosis and actinic lesion right upper lip by the perialar area. Description of Surgical Findings:: Patient is a 59 year old female who presents for evaluation for TBSE. She has concerns about a lesion on her right lateral forehead that has increased in size over the last several months and has developed irregular borders and has developed a cutaneous horn component. There is also an erythematous lesion on her right upper lip by the perialar area that has increased in size over the last several months and has developed irregular borders. She denies fever. She denies trauma. She denies drainage or bleeding. Patient was informed of the risks and complications of the procedure including alternatives to surgery. These were discussed with the patient personally. Patient voices understanding and wishes to proceed. Some of the risks and complications were included in a form from the [employer]. Frozen section right lateral forehead - actinic lesion with no carcinoma seen. Frozen section right upper lip by the perialar area - hyperkeratosis and actinic lesion with no carcinoma seen. 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 Cutaneous horn lesion right lateral forehead to Pathology as a frozen section. 2. Erythematous lesion right upper lip by the perialar area to Pathology as a frozen section. Drains: None. Estimated Blood Loss (mL): 25 ml. Description of Procedure: Patient was taken to OR in supine position and was placed under general anesthesia. The face was prepped and draped in the usual fashion. SCD's were placed for DVT prophylaxis. Perioperative antibiotics were given intravenously. Patient was started on platelet transfusion preoperatively because her platelet count was 60k. Using xylocaine with epinephrine, the lesions right lateral forehead and right upper lip by perialar areas were infiltrated. After waiting 5 minutes for the anesthetic to take effect, the cutaneous horn lesion was excised in a circular full thickness fashion with a 2 mm margin in all directions thus making it a 9 mm excision. A suture was marked at 12 oclock position for pathology orientation. The lesion was sent to Pathology as a frozen section for analysis to rule out carcinoma. The lesion right upper lip by the perialar area was excised in an intradermal fashion and sent to Pathology as a frozen section for analysis to rule out carcinoma. Frozen section showed the cutaneous horn lesion right lateral forehead was an actinic lesion and no carcinoma seen. Therefore no further excision was needed. The right upper lip by the perialar area lesion was hyperkeratosis and actinic change and no carcinoma seen. Therefore no further excision was needed. The full thickness defect right lateral forehead needed to be closed. I designed a lateral horizontal flap to be advanced into the defect to minimize distortion on the underlying eyebrow. Incisions were made and the flap was elevated at the level of the underlying muscle and easily advanced medially into the defect with minimal tension and minimal distortion. Hemostasis was obtained with electrocautery. The wound was closed in a layered fashion with 5-0 Monocryl interrupted sutures for the deep dermis and subcutaneous tissue. The skin was approximated with 6-0 Prolene simple interrupted sutures. Steri-strips were applied followed by antibiotic ointment. For the shave on the right upper lip by the perialar area, hemostasis was obtained with silver nitrate chemical cauterization. Antibiotic ointment was applied. Patient tolerated the procedure well and was sent to PACU in satisfactory condition. Patient will be sent home on antibiotics and pain medication. She will keep her head elevated during the initial postoperative period. Patient will followup in a week for a wound check and for discussion of the pathology report and for removal of the sutures. Grafts/Implants Used: None. - Complications None. - Admit VTE Documentation VTE Present on Admission: No VTE Mechan Device Prophylaxis: SCD's VTE Pharm Prophylaxis ordered?: No Surgery Charges CPT - 08905 ICD-10 - L57.0, D49.2, Z80.8, E11.9, D69.6 05310 L85.9, D49.2, Z80.8, E11.9, D69.6
--- NOTE | 2020-07-31 10:52 | DCINST_ITS ---
You will use the following diet at home:: No restrictions Discharge Activity: May not drive while taking narcotic pain medications., May Shower - in two days., - - keep head elevated. no heavy lifting. May shower in (days): 2 May resume sexual activity in: No Restrictions Ice area for (Minutes): 5 - as needed for facial swelling. Weight Bearing Status: Weight bearing as tolerated Lifting Restrictions: 10 lbs. Keep extremity elevated above heart level: - - elevate head. Call your doctor if your incision/area has: Continuous Slow Oozing, Sudden Increased Bleeding, Increased Pain/ Swelling, Increased Redness, Foul Smelling Discharge, Swelling at the incision site Call your doctor if you observe: Fever of 101 or Higher, Coldness, Increased Pain, Shortness of breath, Chest pain, Calf discomfort, Uncontrolled pain Suture Line Care: - - apply antibiotic ointment to suture lines daily. Cleanse incision/area with: - - may get incisions wet in the shower in two days. Allergies/Adverse Reactions: Allergies meperidine [From Demerol] Adverse Reaction (Severe, Verified 07/31/20 06:50) Unknown MENTAL CHANGES CRAZY,MEAN- ANXIETY adhesive tape Adverse Reaction (Intermediate, Verified 07/31/20 06:50) skin breakdown coverlet bandaid-rubberized bandaid Medications to take at Discharge Fluticasone 110 Mcg [Flovent 110 Mcg] 1 puff INHALATION PRN PRN 02/16/17 Fluticasone/Salmeterol [Advair 250/50 Mcg Diskus] 1 puff INHALATION PRN PRN 02/16/17 Ferrous Sulfate 325 mg PO QODAY 08/27/17 Multivitamin [Multiple Vitamins] 1 ea PO DAILY 03/04/18 Furosemide [Lasix] 40 mg PO QODAY 03/10/19 Lipase/Protease/Amylase [Mary Dr 24,000 Units Capsule] 1 ea PO TID 07/24/20 Sitagliptin Phosphate [Januvia] 12.5 mg PO DAILY 07/24/20 Spironolactone 50 mg PO DAILY 07/24/20 Clindamycin HCl [Cleocin] 300 mg PO TID #12 cap 07/31/20 Lactobacillus Acidophilus/Fos [Acidophilus Probiotic Tablet] 1 ea PO BID #20 tab 07/31/20 Oxycodone HCl/Acetaminophen [Percocet 5/325] 1 tablet PO Q6H PRN PRN 4 Days #15 tablet 07/31/20 The following prescriptions were given: Lactobacillus Acidophilus/Fos [Acidophilus Probiotic Tablet] 1 ea PO BID #20 tab Transmission Status: Pending to [facility] Clindamycin HCl [Cleocin] 300 mg PO TID #12 cap Transmission Status: Pending to [facility] Oxycodone HCl/Acetaminophen [Percocet 5/325] 1 tablet PO Q6H PRN PRN 4 Days #15 tablet PRN Reason: Pain Score 6-10 Transmission Status: Received by [facility]ACE [facility] Primary Care Physician: Deni Daily MD [Primary Care Provider] - Test Results: Test results from this visit will be discussed in further detail at your follow- up appointment, if applicable. Please Follow Up With: Jim Newman MD When: one week. call [phone] for appt. Proposed Discharge Date: 07/31/20
[2020-07-31 11:26] LABS: Bedside Glucose 125 mg/dL (70-110)
== END 2020-07-31 14:05 | disposition home or self-care (01) ==
LOC: SDC 06:43 → AC 06:44
PROVIDERS: PCP Family Medicine; Referring Provider Surgery; Visit Provider Surgery
PROC: (CPT 11310; principal; 2020-07-31 08:30)
DX: L57.0 Actinic keratosis (principal); L85.8 Other specified epidermal thickening; I10 Essential (primary) hypertension; E13.9 Other specified diabetes mellitus without complications; D69.6 Thrombocytopenia, unspecified; N28.9 Disorder of kidney and ureter, unspecified; Z20.822 Contact with and (suspected) exposure to COVID-19; Z79.84 Long term (current) use of oral 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 drugs; Z79.51 Long term (current) use of inhaled steroids; Z79.899 Other long term (current) drug therapy; Z80.8 Family history of malignant neoplasm of other organs or systems
CPT/HCPCS: 00300; 11310; 14040; 36415; 82962; 83036; 85027; 86850; 86900; 86901; 86965; 87426; 88305; 88331; C9803; J7040; J7120; P9035; J2405

== ENCOUNTER → 2020-08-15 10:18 | Outpatient (CLI) | payer BC, SELFPAY ==
[2020-07-04 11:19] VITALS: BMI 48.7
[2020-07-31 07:19] VITALS: BMI 49.6
[2020-08-15 11:16] LABS: Albumin, Serum 2.9 g/dL (3.2-5.0); BUN 13 mg/dL (7-18); BUN/Creat Ratio 11.4 RATIO (10-20); Calcium,Total 9.1 mg/dL (8.5-10.1); Chloride 110 mmol/L (98-107); Creatinine, Serum 1.14 mg/dL (0.55-1.02); EST Glomerular Filtration Rate 52 mL/min (>60); Est Glom Filt Rate - Afr Amer 63 mL/min (>60); Glucose 142 mg/dL (74-106); Phosphorus 2.8 mg/dL (2.5-4.9); Potassium 4.2 mmol/L (3.5-5.1); Sodium Level 143 mmol/L (136-145)
== END ==
PROVIDERS: PCP Family Medicine; Referring Provider Internal Medicine Nephrology; Visit Provider Internal Medicine Nephrology
DX: N18.4 Chronic kidney disease, stage 4 (severe) (principal)
CPT/HCPCS: 36415; 80069

== ENCOUNTER → 2020-08-22 13:40 | Outpatient (CLI) | payer BC, SELFPAY ==
[2020-08-22 16:32] LABS: BUN 15 mg/dL (7-18); BUN/Creat Ratio 13.4 RATIO (10-20); Chloride 110 mmol/L (98-107); Creatinine, Serum 1.12 mg/dL (0.55-1.02); EST Glomerular Filtration Rate 53 mL/min (>60); Est Glom Filt Rate - Afr Amer 64 mL/min (>60); Glucose 142 mg/dL (74-106); Phosphorus 2.6 mg/dL (2.5-4.9); Potassium 4.2 mmol/L (3.5-5.1); Sodium Level 142 mmol/L (136-145)
== END ==
PROVIDERS: PCP Family Medicine; Visit Provider Internal Medicine Nephrology
DX: N18.31 Chronic kidney disease, stage 3a (principal)
CPT/HCPCS: 36415; 80069

== ENCOUNTER 2020-09-04 16:50 | Outpatient (RCR) | payer BC, SELFPAY ==
[2020-09-04] MEDS: COVID-19 VACC, MRNA(PFIZER)/PF 30 MCG/0.3 ML SYRINGE IM (09:18)
[2020-09-25] MEDS: COVID-19 VACC, MRNA(PFIZER)/PF 30 MCG/0.3 ML SYRINGE IM (09:02)
== END 2020-11-27 23:59 ==
LOC: IMMUN 16:50
PROVIDERS: PCP Family Medicine; Visit Provider Family Medicine
DX: Z23 Encounter for immunization (principal)
CPT/HCPCS: 0001A; 0002A; 91300

== ENCOUNTER → 2020-09-24 11:02 | Outpatient (CLI) | payer BC, SELFPAY ==
[2020-09-24 12:21] LABS: International Normalized Ratio 1.2; Prothrombin Time (Protime)PT. 14.3 SECONDS (11.7-14.9)
[2020-09-24 12:22] LABS: Partial Thromboplast Time 30.4 Seconds (24.1-36.2)
[2020-09-24 12:25] LABS: Hematocrit 42.2 % (37-47); Hemoglobin 14.1 g/dL (12.0-15.0); Mean Corp Hgb Conc 33.4 g/dL (32-36); Mean Corpuscular Hgb 31.4 pg (27.0-32.0); Mean Platelet Vol. 10.7 fl (6.2-12.0); POSITIVE COUNT YES; Platelet Count 60 K/mm3 (150-450); RBC Distribution Width SD 44.6 fl (35.1-43.9); Red Blood Count 4.49 M/mm3 (4.2-5.4); White Blood Count 5.3 K/mm3 (4.4-11.0)
[2020-09-24 12:27] LABS: Scan Indicated on CBC? Y/N YES- FLAGS NOTED
[2020-09-24 12:48] LABS: ALB/GLOB Ratio 0.8 RATIO (0.9-2.4); AST(SGOT) 25 U/L (15-37); Alanine Aminotransfer ALT/SGPT 19 U/L (13-56); Albumin, Serum 2.8 g/dL (3.2-5.0); Alkaline Phosphatase 105 U/L (45-117); Anion Gap 4 (5-15); BUN 14 mg/dL (7-18); BUN/Creat Ratio 12.5 RATIO (10-20); Calcium,Total 8.7 mg/dL (8.5-10.1); Chloride 112 mmol/L (98-107); Creatinine, Serum 1.12 mg/dL (0.55-1.02); EST Glomerular Filtration Rate 53 mL/min (>60); Est Glom Filt Rate - Afr Amer 64 mL/min (>60); Globulin 3.7 g/dL (2.2-4.2); Glucose 150 mg/dL (74-106); Potassium 3.9 mmol/L (3.5-5.1); Protein, Total 6.5 g/dL (6.4-8.2); Sodium Level 141 mmol/L (136-145)
[2020-09-25 09:00] LABS: AFP, Tumor Marker 3.3 ng/mL (0.0-8.3)
== END ==
PROVIDERS: PCP Family Medicine; Visit Provider Internal Medicine Gastroenterology
DX: K74.60 Unspecified cirrhosis of liver (principal)
CPT/HCPCS: 36415; 80053; 82105; 85027; 85610; 85730

== ENCOUNTER → 2020-12-31 16:00 | Outpatient (CLI) | payer BC, SELFPAY ==
--- NOTE | 2020-12-31 16:01 | VDLE_ITS ---
Reason For Study: Pain RIGHT GSV is normal. CFV is compressible, spontaneous, phasic, competent and demonstrates normal augmentation. FV is compressible, spontaneous, phasic, competent and demonstrates normal augmentation. POP V is compressible, spontaneous, phasic, competent and demonstrates normal augmentation. T/P Trunk is compressible. PTV is compressible. RT PerV is compressible. Procedure This is a venous duplex using B-mode, color flow and spectral Doppler. Exam performed in department. A preliminary report was called and/or faxed to Dr. Lee. VL/Venous Duplex US, Unilateral Interpretation Summary There is no evidence of right lower extremity deep vein thrombosis. Right great saphenous vein appears patent and compressible segmentally. Ordering Physician: Nadeem Lee Referring Physician: Deni Daily Performed By: Unique Mahoney, MANFRED, RVT
== END ==
LOC: CVS 16:01
PROVIDERS: PCP Family Medicine; Referring Provider Podiatrist Foot & Ankle Surgery; Visit Provider Podiatrist Foot & Ankle Surgery
DX: M79.604 Pain in right leg (principal)
CPT/HCPCS: 93971

== ENCOUNTER → 2021-01-29 11:12 | Outpatient (CLI) | payer BC, SELFPAY ==
[2021-01-29 15:17] LABS: Hematocrit 40.2 % (37-47); Hemoglobin 13.6 g/dL (12.0-15.0); Mean Corp Hgb Conc 33.8 g/dL (32-36); Mean Corpuscular Hgb 32.2 pg (27.0-32.0); Mean Platelet Vol. 10.6 fl (6.2-12.0); POSITIVE COUNT YES; Platelet Count 53 K/mm3 (150-450); RBC Distribution Width CV 12.8 % (11.6-14.6); RBC Distribution Width SD 44.4 fl (35.1-43.9); Red Blood Count 4.23 M/mm3 (4.2-5.4); White Blood Count 4.8 K/mm3 (4.4-11.0)
[2021-01-29 15:37] LABS: ALB/GLOB Ratio 0.8 RATIO (0.9-2.4); AST(SGOT) 30 U/L (15-37); Alanine Aminotransfer ALT/SGPT 25 U/L (13-56); Albumin, Serum 2.9 g/dL (3.2-5.0); Alkaline Phosphatase 105 U/L (45-117); Anion Gap 4 (5-15); BUN 21 mg/dL (7-18); Chloride 105 mmol/L (98-107); Creatinine, Serum 1.31 mg/dL (0.55-1.02); EST Glomerular Filtration Rate 44 mL/min (>60); Est Glom Filt Rate - Afr Amer 54 mL/min (>60); Globulin 3.5 g/dL (2.2-4.2); Glucose 347 mg/dL (74-106); Magnesium 1.7 mg/dL (1.6-2.6); Potassium 4.7 mmol/L (3.5-5.1); Protein, Total 6.4 g/dL (6.4-8.2); Sodium Level 135 mmol/L (136-145); Thyroid Stim Hormone (TSH) 2.96 uIU/mL (0.358-3.74)
[2021-01-29 15:39] LABS: Vitamin D,25 Hydroxy 28.9 ng/mL
== END ==
PROVIDERS: PCP Family Medicine; Referring Provider Family Medicine; Visit Provider Family Medicine
DX: G47.62 Sleep related leg cramps (principal); E11.8 Type 2 diabetes mellitus with unspecified complications; K74.60 Unspecified cirrhosis of liver
CPT/HCPCS: 36415; 80053; 82306; 83735; 84443; 85027

== ENCOUNTER 2021-02-02 10:15 | Emergency (ER) | payer BC, SELFPAY ==
[2021-02-02 10:18] VITALS: BP 144/72; PULSE 106; RESP 22; TEMP 37.1; O2SAT 96; BMI 49.8
--- NOTE | 2021-02-02 10:54 | CT_ITS ---
STUDY: CT SOFT TISSUE NECK WITH CONTRAST REASON FOR EXAM: Female, 60 years old. Eval for tonsillar abscess RADIATION DOSAGE (If Supplied By Facility): CTDIvol = ( 17.63 ) mGy, DLP = ( 493.30 ) mGycm TECHNIQUE: The patient was scanned in a multi-detector CT scanner. High resolution transaxial imaging was performed following intravenous administration of 75 L ISOVUE 370. Sagittal and coronal images were reconstructed. Individualized dose optimization techniques were used for this CT. COMPARISON: None. FINDINGS: Normal bilateral parotid glands. Normal bilateral administrative underwriter spaces. Normal bilateral parapharyngeal spaces. Normal bilateral carotid spaces. Normal bilateral sublingual and submandibular glands and spaces. Normal visualized nasopharynx. Normal retropharyngeal space. Normal perivertebral space. Enlargement of the right lingual tonsil consistent with tonsillitis or mass but no peritonsillar abscess. The visualized tongue, tongue base and oropharynx are normal. The visualized cervical lymph nodes (levels I-) are within normal size limits, and maintain normal morphology. There is no demonstrated solid or cystic mass lesion. There is no abnormal contrast enhancement. Normal epiglottis, bilateral vallecula and hypopharynx. The pre-epiglottic and paraglottic adipose spaces are normal. Normal visualized bilateral piriform sinuses, aryepiglottic folds, vocal cords, and arytenoid-cricoid articulations. Normal subglottic trachea. Normal bilateral lobes of the thyroid gland. Normal visualized pulmonary apices. Normal visualized paranasal sinuses. Normal visualized cervical spine. CT/Soft Tissue Neck WITH Contrast IMPRESSION: Suspect right sided tonsillitis or possible mass but no peritonsillar abscess. Clinical correlation is recommended. Electronically Signed: Chuck Schreiber MD at 13:04 EDT Tel , Service support ,
--- NOTE | 2021-02-02 11:22 | EDS_ITS ---
HPI History of Present Illness Chief Complaint: Shortness of Breath Informant: patient Narrative Narrative: Patient is a 60-year-old female with a past medical history of diabetes who presents to the emergency department for throat swelling, shortness of breath. She has felt like she has had a fever as well. She has had a cough and bringing up some sputum. She has been vaccinated for Covid but states she did have a Covid exposure. She denies ever having significant swelling in her throat like this before. It is only on the right side. She is complaining of right ear pain. She has not taken anything for this. She denies any chest pain. No vomiting or change in bowel movements. No urinary symptoms. [facility] Medical History (Updated 02/02/21 @ 13:[address] 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 Home Medications fluticasone propion-salmeterol 1 puff INHALATION PRN PRN 02/16/17 [History Last Taken Unknown] fluticasone propionate 1 puff INHALATION PRN PRN 02/16/17 [History Last Taken Unknown] ferrous sulfate 325 mg PO QODAY 08/27/17 [History Last Taken Unknown] multivitamin 1 ea PO DAILY 03/04/18 [History Last Taken Unknown] furosemide 40 mg PO QODAY 03/10/19 [History Last Taken Unknown] kuashv-hqjezlwt-hwypnvk 1 ea PO TID 07/24/20 [History Last Taken Unknown] sitagliptin 12.5 mg PO DAILY 07/24/20 [History Last Taken Unknown] spironolactone 50 mg PO DAILY 07/24/20 [History Last Taken Unknown] Lactobac acidoph-fructooligos 1 ea PO BID #20 tab 07/31/20 [Rx Last Taken Unknown] amoxicillin-pot clavulanate [Augmentin] 1 tab PO BID 10 Days #20 tab 02/02/21 [Rx Last Taken Unknown] Allergy/AdvReac Type Severity Reaction Status Date / Time meperidine [From Demerol] AdvReac Severe Unknown Verified 02/02/21 10:18 adhesive tape AdvReac Intermediate skin Verified 02/02/21 10:18 breakdown Family History Father COPD (chronic obstructive pulmonary disease) Anemia Depression Heart disease Skin cancer Mother Heart disease Hypertension Hypocalcemia Seizures Psychiatric diagnosis Depression Epilepsy Osteoporosis Surgical History H/O dilation and curettage H/O LEEP History of corrected cleft lip and palate History of excision of lesion S/P cholecystectomy Social History Smoking Status: Never smoker alcohol intake: current details: 6 to 10 drinks a year substance use type: does not use ROS ROS ED Constitutional Constitutional ED: Reports fever(s); Denies chills Eyes Eyes: Denies change in vision ENT ENT ED: Reports ear pain and sore throat; Denies epistaxis or rhinorrhea Cardiovascular Cardiovascular: Denies chest pain or palpitations Respiratory/Chest Respiratory/Chest: Reports cough, dyspnea and sputum Gastrointestinal Gastrointestinal: Denies abdominal pain, diarrhea, nausea or vomiting Genitourinary Genitourinary ED: Denies dysuria, hematuria or urinary frequency Musculoskeletal Musculoskeletal: Denies back pain or neck pain Integumentary Denies rash Neurologic Neurologic: Denies dizziness, headache(s) or weakness EXAM Physical Exam Const Vital Signs: 02/02/21 10:18 02/02/21 11:27 02/02/21 13:51 Temperature 98.7 F 98.9 F Temperature Source Temporal Oral Pulse Rate 106 H 98 Respiratory Rate 22 H 16 15 Blood Pressure 144/72 H 133/46 H Blood Pressure Mean 96 75 Pulse Ox 96 96 98 Oxygen Delivery Method Room Air Room Air Positive well nourished and well developed General Appearance ED: well developed and NAD HEENT Reports normocephalic, head/scalp atraumatic and moist mucous membranes HEENT Narrative: Right posterior oropharynx is very swollen. This is pushing the uvula to the left. She is protecting her airway. No stridor. She is handling her secretions. Able to talk in full sentences. Swelling does go down to the right neck. Right tympanic membrane is bulging and erythematous. Normal appearance to left TM. Eyes PERRL and EOMs intact bilaterally Neck supple Chest Wall inspection of chest normal Resp normal respiratory effort and clear to auscultation bilaterally Auscultation: Negative for rales, rhonchi or wheezes Cardio regular rhythm and no murmurs Rate: tachycardic GI normal to inspection, nondistended, normoactive bowel sounds and non-tender Palpation: soft; Negative for guarding or rebound tenderness present Extremity normal to inspection General Extremety ED: Negative for edema or tenderness General Extremity: Negative for edema Neuro CN's II-XII intact bilaterally and no sensory deficits noted Sensorium / Orientation: alert Motor Exam: strength 5/5 throughout Psych mental status grossly normal Skin no rashes or lesions noted MDM MDM MDM Narrative Medical decision making narrative: Patient presents to the emergency department for swelling to the posterior oropharynx. She is feeling fairly short of breath because of this. On arrival to the emerge department she is afebrile. She is mildly tachycardic and tachypneic but satting 96% on room air. No significant increased work of breathing. Given the extent of the swelling CT scan of the neck is being obtained. She is given a dose of Unasyn. Patient CT scan did not reveal any obvious abscess. There was concern for tonsillitis. They cannot rule out mass but this just appeared overnight so I do not feel that this is cancerous in nature. She is given a dose of Decadron. We will write a prescription for Augmentin given the fact she appears to have an otitis media on the right side as well. Patient's glucose is 298. She understands that the Decadron can raise her blood sugars well and she needs to keep a close eye on this. I did make a referral for ENT. If she develops any worsening symptoms including significant swelling, difficulty breathing, fever she needs to return back to the emergency department for reevaluation. She understands and is agreeable this plan. All questions were answered. Lab Data Labs: Laboratory Results - last 24 hr 02/02/21 02/02/21 11:25 11:25 WBC 9.6 RBC 4.35 Hgb 14.1 Hct 41.5 MCV 95.4 MCH 32.4 H MCHC 34.0 RDW Std Deviation 43.4 RDW Coeff of Hyacinth 12.4 Plt Count 51 L MPV 10.5 Immature Gran % (Auto) 0.400 Neut % (Auto) 83.6 H Lymph % (Auto) 7.4 L Sutter % (Auto) 7.7 Eos % (Auto) 0.5 Baso % (Auto) 0.4 Absolute Neuts (auto) 8.0 H Absolute Lymphs (auto) 0.71 L Nucleated RBC % 0 Sodium 133 L Potassium 4.6 Chloride 104 Carbon Dioxide 25.0 Anion Gap 4 L BUN 20 H Creatinine 1.44 H Estim Creat Clear Calc 32.13 Est GFR (MDRD) Af Amer 48 L Est GFR (MDRD) Non-Af 40 L BUN/Creatinine Ratio 13.9 Glucose 298 H Calcium 9.0 Radiography Diagnostic Testing: Radiology Impression Soft Tissue Neck CT 02/02/21 10:54 IMPRESSION: Suspect right sided tonsillitis or possible mass but no peritonsillar abscess. Clinical correlation is recommended. Electronically Signed: Chuck Schreiber MD at 13:04 EDT Tel , Service support , Chest X-Ray 02/02/21 12:17 IMPRESSION: No active disease. Electronically Signed: Chuck Schreiber MD at 12:51 EDT Tel , Service support , Discharge Plan Triage Chief Complaint: Shortness of Breath ED Provider: Eliel Purcell Dx/Rx/DC Orders Clinical Impression: Acute tonsillitis, Otitis media Instructions: ED Otitis Media Antibiotic ..., ED Tonsillitis Prescriptions: New amoxicillin-pot clavulanate [Augmentin] 875-125 mg tablet 1 tab PO BID 10 Days Qty: 20 RF: 0 No Action ferrous sulfate 325 MG tablet 325 mg PO QODAY RF: 0 multivitamin 1 EACH tablet 1 ea PO DAILY RF: 0 furosemide 40 MG tablet 40 mg PO QODAY RF: 0 spironolactone 50 MG tablet 50 mg PO DAILY RF: 0 sitagliptin 25 MG tablet 12.5 mg PO DAILY RF: 0 [id number] 1 EACH capsule,delayed release(DR/EC) 1 ea PO TID RF: 0 Lactobac acidoph-fructooligos 1 EACH tablet 1 ea PO BID Qty: 20 RF: 0 fluticasone propionate 1 INHALER inhaler 1 puff INHALATION PRN PRN (Reason: Asthma) RF: 0 fluticasone propion-salmeterol 1 PUFF inhaler 1 puff INHALATION PRN PRN (Reason: Asthma) RF: 0 Primary Care Provider: Deni Daily Referrals: Deni Daily MD [Primary Care Provider] - Presley Newman MD [STAFF PHYSICIAN] - 2 Days Disposition Disposition: Home, Self Care Discharge Date/Time: 02/02/21 13:52
[2021-02-02 11:27] VITALS: BP 133/46; PULSE 98; RESP 16; TEMP 37.2; O2SAT 96
[2021-02-02 11:38] LABS: Absolute Lymphocyte Count 0.71 X10^3/uL (0.83-4.51); Basophil# 0.04 X10^3/uL; Basophil% 0.4 % (0-1); Eosinophil# 0.05 X10^3/uL; Eosinophils% 0.5 % (0-5); Hematocrit 41.5 % (37-47); Hemoglobin 14.1 g/dL (12.0-15.0); Lymphocyte # 0.71 X10^3/ul (0.83-4.51); Lymphocyte % 7.4 % (19-41); Mean Corpuscular Hgb 32.4 pg (27.0-32.0); Mean Corpuscular Volume 95.4 fL (81-99); Mean Platelet Vol. 10.5 fl (6.2-12.0); Monocyte# 0.74 X10^3/uL; Monocyte% 7.7 % (0-10); NRBC Flagged by Analyzer 0 % (0-5); Neutrophil % 83.6 % (47-70); POSITIVE COUNT YES; Platelet Count 51 K/mm3 (150-450); RBC Distribution Width CV 12.4 % (11.6-14.6); RBC Distribution Width SD 43.4 fl (35.1-43.9); Red Blood Count 4.35 M/mm3 (4.2-5.4); White Blood Count 9.6 K/mm3 (4.4-11.0)
[2021-02-02 11:48] LABS: Anion Gap 4 (5-15); BUN 20 mg/dL (7-18); BUN/Creat Ratio 13.9 RATIO (10-20); Chloride 104 mmol/L (98-107); Creatinine, Serum 1.44 mg/dL (0.55-1.02); EST Glomerular Filtration Rate 40 mL/min (>60); Est Glom Filt Rate - Afr Amer 48 mL/min (>60); Estimated Creatinine Clearance 32.13 ml/min; Glucose 298 mg/dL (74-106); Potassium 4.6 mmol/L (3.5-5.1); Sodium Level 133 mmol/L (136-145)
--- NOTE | 2021-02-02 12:17 | RAD_ITS ---
STUDY: X-RAY CHEST REASON FOR EXAM: Female, 60 years old. SOB TECHNIQUE: Single AP portable view of the chest. COMPARISON: 11/18/2018 FINDINGS: The lungs are clear and expanded. There is no demonstrated pleural abnormality. There is moderate cardiac enlargement. Normal mediastinum and ruben. Normal visualized pulmonary arteries. Normal visualized aortic arch and descending thoracic aorta. Normal visualized thoracic spine. Normal visualized ribs, clavicles, and shoulders. There is no demonstrated abnormality of the visualized soft tissue structures of the upper abdomen. RAD/Chest 1 View (Portable) IMPRESSION: No active disease. Electronically Signed: Chcuk Schreiber MD at 12:51 EDT Tel , Service support ,
[2021-02-02] MEDS: dexAMETHasone 10 MG/ML Vial 8 MG IV (13:47)
[2021-02-02 13:51] VITALS: RESP 15; O2SAT 98
== END 2021-02-02 13:52 | disposition home or self-care (01) ==
PROVIDERS: Emergency Provider Emergency Medicine; PCP Family Medicine
DX: J03.90 Acute tonsillitis, unspecified (principal); H66.91 Otitis media, unspecified, right ear; E13.9 Other specified diabetes mellitus without complications; Z79.4 Long term (current) use of insulin; Z20.822 Contact with and (suspected) exposure to COVID-19
CPT/HCPCS: 70491; 71045; 80048; 85025; 87426; 96365; 96375; 99283; Q9967; A4216; J0295

== ENCOUNTER 2021-02-05 12:05 | Emergency (ER) | payer BC, SELFPAY ==
[2021-02-05 12:07] VITALS: BP 128/80; PULSE 96; RESP 18; TEMP 36.7; O2SAT 95; BMI 49.2
[2021-02-05 12:29] VITALS: BP 128/80; PULSE 96; RESP 18; TEMP 36.7; O2SAT 95
--- NOTE | 2021-02-05 12:47 | CT_ITS ---
STUDY: CT SOFT TISSUE NECK WITH CONTRAST REASON FOR EXAM: Female, 60 years old. 3 day history of right cervical swelling. RADIATION DOSAGE (If Supplied By Facility): CTDIvol = ( 19.11 ) mGy, DLP = ( 510.96 ) mGycm TECHNIQUE: The patient was scanned in a multi-detector CT scanner. High resolution transaxial imaging was performed following intravenous administration of IV-100 ml Isovue 370. Sagittal and coronal images were reconstructed. Individualized dose optimization techniques were used for this CT. COMPARISON: Comparison is made with prior study dated 02/02/2021. FINDINGS: There is diffuse swelling of the right submandibular gland as well as the right parotid gland. Increased markings are seen in the surrounding fat suggestive of a inflammatory changes. There is also evidence of asymmetrical soft tissue density and inflammatory changes in the right oropharyngeal area with the narrowing of the airway. Normal retropharyngeal space. Normal perivertebral space. The visualized tongue, tongue base and oropharynx are normal. The visualized cervical lymph nodes (levels I-) are within normal size limits, and maintain normal morphology. There is no demonstrated solid or cystic mass lesion. There is no abnormal contrast enhancement. Normal epiglottis, bilateral vallecula and hypopharynx. The pre-epiglottic and paraglottic adipose spaces are normal. Normal visualized bilateral piriform sinuses, aryepiglottic folds, vocal cords, and arytenoid-cricoid articulations. Normal subglottic trachea. Normal bilateral lobes of the thyroid gland. Normal visualized pulmonary apices. Normal visualized paranasal sinuses. There is degenerative changes of the cervical spine. CT/Soft Tissue Neck WITH Contrast IMPRESSION: Diffuse swelling and enlargement of the right parotid gland as well as the right submandibular gland with findings suggestive of asymmetrical soft tissue density in the right oropharynx in the region of the tonsils. Increased markings are seen in the fat overlying the right cervical region into with inflammatory changes. Electronically Signed: Mac Hua MD at 14:24 EDT , Service support ,
--- NOTE | 2021-02-05 13:03 | EX.ED.DYSGE1 ---
HPI History of Present Illness Chief Complaint: Edema Informant: patient Narrative Narrative: 60-year-old female presents the emergency department with neck swelling. Patient was seen on Thursday in the emergency department had a CT that did not show a peritonsillar abscess but was started on Augmentin and steroids. She followed up with Dr. Plata with otolaryngology on Thursday. She saw her primary care doctor today. She states that today the swelling in the right side of her neck is significantly worse and is red. She denies any fever. She was sent here for further evaluation from the PCP office. Patient has been able to swallow. [facility] Medical History (Updated 02/05/21 @ 14:[address] 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 Home Medications ferrous sulfate 325 mg PO DAILY 08/27/17 [History Last Taken Unknown] sitagliptin 50 mg PO DAILY 07/24/20 [History Last Taken Unknown] spironolactone 100 mg PO DAILY 07/24/20 [History Last Taken Unknown] albuterol sulfate 1 - 2 puff INHALATION Q4H PRN 02/05/21 [History Last Taken Unknown] azelastine 1 spray INTRANASAL BID 02/05/21 [History Last Taken Unknown] budesonide-formoterol 2 puff INHALATION BID 02/05/21 [History Last Taken Unknown] clindamycin HCl [Cleocin HCl] 300 mg PO Q6H #40 capsule 02/05/21 [Rx Last Taken Unknown] fluticasone propionate 2 spray INTRANASAL DAILY 02/05/21 [History Last Taken Unknown] hydrocodone-acetaminophen 1 tab PO Q6H PRN PRN 3 Days #12 tablet 02/05/21 [Rx Last Taken Unknown] insulin glargine [Lantus Solostar U-100 Insulin] 10 unit SUBCUT DAILY 02/05/21 [History Last Taken Unknown] pantoprazole 40 mg PO DAILY 02/05/21 [History Last Taken Unknown] psyllium [Psyllium Husk Fibre] 1 tsp PO TID 02/05/21 [History Last Taken Unknown] Allergy/AdvReac Type Severity Reaction Status Date / Time meperidine [From Demerol] AdvReac Severe Unknown Verified 02/05/21 12:09 adhesive tape AdvReac Intermediate skin Verified 02/05/21 12:09 breakdown Family History Father COPD (chronic obstructive pulmonary disease) Anemia Depression Heart disease Skin cancer Mother Heart disease Hypertension Hypocalcemia Seizures Psychiatric diagnosis Depression Epilepsy Osteoporosis Surgical History H/O dilation and curettage H/O LEEP History of corrected cleft lip and palate History of excision of lesion S/P cholecystectomy Social History Smoking Status: Never smoker alcohol intake: current details: 6 to 10 drinks a year substance use type: does not use ROS ROS ED Constitutional Constitutional ED: Denies chills or weight loss Eyes Eyes: Denies change in vision or diplopia ENT ENT ED: Reports other Details: Right throat pain ; Denies ear pain, rhinorrhea or sore throat Cardiovascular Cardiovascular: Denies chest pain, orthopnea, palpitations or racing heartbeat Respiratory/Chest Respiratory/Chest: Denies cough, dyspnea or orthopnea Gastrointestinal Gastrointestinal: Denies abdominal pain, diarrhea, nausea or vomiting Genitourinary Genitourinary ED: Denies dysuria, hematuria or urinary frequency Musculoskeletal Musculoskeletal: Reports neck pain; Denies arthralgias or myalgias Integumentary Reports rash and other Details: Swelling right side of neck with redness ; Denies abscess Neurologic Neurologic: Denies headache(s) or weakness Psychiatric Psychiatric: Denies anxiety, depression, suicidal ideation or suicidal thoughts Endocrine Endocrinology: Denies polydipsia, polyphagia or polyuria Allergic/Immunologic Allergic/Immunologic ED: Denies mouth swelling, tongue swelling or urticaria EXAM Physical Exam Const Vital Signs: 02/05/21 12:07 02/05/21 12:29 Temperature 98.1 F 98.1 F Temperature Source Oral Oral Pulse Rate 96 96 Respiratory Rate 18 18 Respiratory Pattern Normal Blood Pressure 128/80 H 128/80 H Blood Pressure Mean 96 96 Pulse Ox 95 95 Oxygen Delivery Method Room Air Room Air Positive well nourished, well developed and obese General Appearance ED: well developed Nutritional Appearance: obese HEENT Reports normocephalic, head/scalp atraumatic and moist mucous membranes HEENT Narrative: There is swelling consistent with a peritonsillar abscess on the right tonsil. On the patient's neck there is significant mouth swelling on the right with erythema extending anteriorly from the angle of the mandible Eyes PERRL and EOMs intact bilaterally Neck no lymphadenopathy, supple and no JVD Resp normal respiratory effort and clear to auscultation bilaterally Cardio regular rate, regular rhythm and no murmurs GI normal to inspection, nondistended, normoactive bowel sounds and non-tender Palpation: soft Back/Spine no CVA tenderness and normal ROM Extremity normal to inspection General Extremety ED: Negative for edema General Extremity: Negative for edema Neuro oriented x3 and CN's II-XII intact bilaterally Sensorium / Orientation: alert Motor Exam: strength 5/5 throughout Psych mental status grossly normal Mood & Affect: Negative for depressed or tearful Skin no rashes or lesions noted and no wounds MDM MDM MDM Narrative Medical decision making narrative: Patient's white count is 8.4. She is afebrile. Lactic acid is normal. CT of the neck with IV contrast was obtained. This demonstrated swelling and inflammation of the right parotid and right submandibular gland. There is continued swelling in the peritonsillar area but without abscess formation. Case was discussed with Dr. Plata. We are going to change her antibiotics to clindamycin. I also advised the use of lemon drops. She will follow up in the office on . Return if worsening or concerns. Lab Data Attestation: I reviewed the patient's lab results. Labs: Laboratory Results - last 24 hr 02/05/21 02/05/21 02/05/21 13:05 13:05 13:05 WBC 8.4 RBC 4.39 Hgb 14.3 Hct 41.5 MCV 94.5 MCH 32.6 H MCHC 34.5 RDW Std Deviation 43.3 RDW Coeff of Hyacinth 12.4 Plt Count 55 L MPV 10.9 Immature Gran % (Auto) 0.700 Neut % (Auto) 83.8 H Lymph % (Auto) 8.7 L [place] % (Auto) 6.6 Eos % (Auto) 0.1 Baso % (Auto) 0.1 Absolute Neuts (auto) 7.0 Absolute Lymphs (auto) 0.73 L Nucleated RBC % 0 Sodium 134 L Potassium 4.3 Chloride 102 Carbon Dioxide 26.0 Anion Gap 6 BUN 35 H Creatinine 1.63 H Estim Creat Clear Calc 28.39 Est GFR (MDRD) Af Amer 42 L Est GFR (MDRD) Non-Af 34 L BUN/Creatinine Ratio 21.5 H Glucose 349 H Lactic Acid 1.2 Calcium 8.6 Total Bilirubin 1.90 H AST 21 ALT 24 Alkaline Phosphatase 97 Total Protein 7.1 Albumin 2.8 L Globulin 4.3 H Albumin/Globulin Ratio 0.7 L Radiography Diagnostic Testing: Radiology Impression Soft Tissue Neck CT 02/05/21 12:47 IMPRESSION: Diffuse swelling and enlargement of the right parotid gland as well as the right submandibular gland with findings suggestive of asymmetrical soft tissue density in the right oropharynx in the region of the tonsils. Increased markings are seen in the fat overlying the right cervical region into with inflammatory changes. Electronically Signed: Mac Hua MD at 14:24 EDT , Service support , Discharge Plan Triage Chief Complaint: Edema ED Provider: Roddy Solis Dx/Rx/DC Orders Clinical Impression: Acute tonsillitis, Acute parotitis, Salivary gland infections Instructions: ED Salivary Gland Infection Prescriptions: New clindamycin HCl [Cleocin HCl] 300 MG capsule 300 mg PO Q6H Qty: 40 RF: 0 hydrocodone-acetaminophen [hydrocodone-acetaminophen] 1 TABLET tablet 1 tab PO Q6H PRN PRN (Reason: Pain) 3 Days Qty: 12 RF: 0 Discontinued amoxicillin-pot clavulanate [Augmentin] 875-125 mg tablet 1 tab PO BID 10 Days Qty: 20 RF: 0 No Action ferrous sulfate 325 MG tablet 325 mg PO DAILY RF: 0 spironolactone 50 MG tablet 100 mg PO DAILY RF: 0 sitagliptin 25 MG tablet 50 mg PO DAILY RF: 0 pantoprazole 40 mg tablet,delayed release (DR/EC) 40 mg PO DAILY RF: 0 albuterol sulfate 90 mcg/actuation HFA aerosol inhaler 1 - 2 puff INHALATION Q4H PRN (Reason: Shortness Of Breath Or Wheezing) RF: 0 Psyllium Husk Fibre Powder 1 tsp PO TID RF: 0 fluticasone propionate 50 mcg/actuation [place],Suspension 2 spray INTRANASAL DAILY RF: 0 budesonide-formoterol 160-4.5 mcg/actuation Hfa Aerosol Inhaler 2 puff INHALATION BID RF: 0 Lantus Solostar U-100 Insulin 100 unit/mL (3 mL) Insulin Pen 10 unit SUBCUT DAILY RF: 0 azelastine 205.5 mcg (0.15 %) [place],Non-Aerosol 1 spray INTRANASAL BID RF: 0 Primary Care Provider: Deni Daily Referrals: Deni Daily MD [Primary Care Provider] - Presley Newman MD [STAFF PHYSICIAN] - 2 Days Disposition Disposition: Home, Self Care
[2021-02-05] MEDS: 0.9% Normal Saline 1,000 ML 999 ML IV (13:08)
[2021-02-05 13:15] LABS: Absolute Lymphocyte Count 0.73 X10^3/uL (0.83-4.51); Basophil# 0.01 X10^3/uL; Basophil% 0.1 % (0-1); Eosinophil# 0.01 X10^3/uL; Eosinophils% 0.1 % (0-5); Hematocrit 41.5 % (37-47); Hemoglobin 14.3 g/dL (12.0-15.0); Lymphocyte # 0.73 X10^3/ul (0.83-4.51); Lymphocyte % 8.7 % (19-41); Mean Corp Hgb Conc 34.5 g/dL (32-36); Mean Corpuscular Hgb 32.6 pg (27.0-32.0); Mean Corpuscular Volume 94.5 fL (81-99); Mean Platelet Vol. 10.9 fl (6.2-12.0); Monocyte# 0.55 X10^3/uL; Monocyte% 6.6 % (0-10); NRBC Flagged by Analyzer 0 % (0-5); Neutrophil # 7.01 X10^3/uL (2.7-7.7); Neutrophil % 83.8 % (47-70); POSITIVE COUNT YES; Platelet Count 55 K/mm3 (150-450); RBC Distribution Width CV 12.4 % (11.6-14.6); RBC Distribution Width SD 43.3 fl (35.1-43.9); Red Blood Count 4.39 M/mm3 (4.2-5.4); White Blood Count 8.4 K/mm3 (4.4-11.0)
[2021-02-05 13:28] LABS: ALB/GLOB Ratio 0.7 RATIO (0.9-2.4); AST(SGOT) 21 U/L (15-37); Alanine Aminotransfer ALT/SGPT 24 U/L (13-56); Albumin, Serum 2.8 g/dL (3.2-5.0); Alkaline Phosphatase 97 U/L (45-117); Anion Gap 6 (5-15); BUN 35 mg/dL (7-18); BUN/Creat Ratio 21.5 RATIO (10-20); Calcium,Total 8.6 mg/dL (8.5-10.1); Chloride 102 mmol/L (98-107); Creatinine, Serum 1.63 mg/dL (0.55-1.02); EST Glomerular Filtration Rate 34 mL/min (>60); Est Glom Filt Rate - Afr Amer 42 mL/min (>60); Estimated Creatinine Clearance 28.39 ml/min; Globulin 4.3 g/dL (2.2-4.2); Glucose 349 mg/dL (74-106); Potassium 4.3 mmol/L (3.5-5.1); Protein, Total 7.1 g/dL (6.4-8.2); Sodium Level 134 mmol/L (136-145)
[2021-02-05 13:37] LABS: Lactic Acid 1.2 mmol/L (0.4-1.9)
[2021-02-05 15:11] VITALS: BP 137/74
== END 2021-02-05 15:11 | disposition home or self-care (01) ==
PROVIDERS: Emergency Provider Emergency Medicine; PCP Family Medicine
DX: J03.90 Acute tonsillitis, unspecified (principal); K11.21 Acute sialoadenitis; E13.9 Other specified diabetes mellitus without complications; E66.9 Obesity, unspecified; Z79.4 Long term (current) use of insulin; Z79.899 Other long term (current) drug therapy
CPT/HCPCS: 70491; 80053; 83605; 85025; 87040; 96365; 99283; Q9967; A4216; J0295

== ENCOUNTER → 2021-02-11 | Outpatient (CLI) | payer BC, SELFPAY | END | disposition home or self-care (01) | LOC: LABSPEC 15:35 | PROVIDERS: PCP Family Medicine; Visit Provider Otolaryngology Otolaryngology/Facial Plastic Surgery | DX: J36 Peritonsillar abscess (principal) | CPT/HCPCS: 87070; 87077; 87186 ==

== ENCOUNTER → 2021-02-13 15:57 | Outpatient (CLI) | payer BC, SELFPAY ==
[2021-02-13 17:47] LABS: Albumin, Serum 2.5 g/dL (3.2-5.0); BUN 27 mg/dL (7-18); BUN/Creat Ratio 17.9 RATIO (10-20); Chloride 99 mmol/L (98-107); Creatinine, Serum 1.51 mg/dL (0.55-1.02); EST Glomerular Filtration Rate 38 mL/min (>60); Est Glom Filt Rate - Afr Amer 45 mL/min (>60); Glucose 426 mg/dL (74-106); Potassium 4.5 mmol/L (3.5-5.1); Sodium Level 132 mmol/L (136-145)
== END ==
PROVIDERS: PCP Family Medicine; Visit Provider Internal Medicine Nephrology
DX: N18.31 Chronic kidney disease, stage 3a (principal)
CPT/HCPCS: 36415; 80069

== ENCOUNTER → 2021-04-17 14:39 | Outpatient (CLI) | payer BC, SELFPAY ==
[2021-04-17 15:34] LABS: Albumin, Serum 2.7 g/dL (3.2-5.0); BUN 15 mg/dL (7-18); BUN/Creat Ratio 11.4 RATIO (10-20); Calcium,Total 8.8 mg/dL (8.5-10.1); Chloride 107 mmol/L (98-107); Creatinine, Serum 1.32 mg/dL (0.55-1.02); EST Glomerular Filtration Rate 44 mL/min (>60); Est Glom Filt Rate - Afr Amer 53 mL/min (>60); Glucose 272 mg/dL (74-106); Phosphorus 2.9 mg/dL (2.5-4.9); Potassium 4.1 mmol/L (3.5-5.1); Sodium Level 140 mmol/L (136-145)
== END ==
PROVIDERS: PCP Family Medicine; Referring Provider Internal Medicine Nephrology; Visit Provider Internal Medicine Nephrology
DX: N18.31 Chronic kidney disease, stage 3a (principal)
CPT/HCPCS: 36415; 80069

== ENCOUNTER → 2021-04-24 10:05 | Outpatient (CLI) | payer BC, SELFPAY ==
[2021-04-24 12:29] LABS: Absolute Lymphocyte Count 0.75 X10^3/uL (0.83-4.51); Absolute Neutrophil Count 3.4 X10^3/uL (2.0-7.7); Basophil# 0.01 X10^3/uL; Basophil% 0.2 % (0-1); Eosinophil# 0.08 X10^3/uL; Eosinophils% 1.8 % (0-5); Hematocrit 40.1 % (37-47); Hemoglobin 13.9 g/dL (12.0-15.0); Lymphocyte # 0.75 X10^3/ul (0.83-4.51); Lymphocyte % 16.4 % (19-41); Mean Corp Hgb Conc 34.7 g/dL (32-36); Mean Corpuscular Hgb 32.9 pg (27.0-32.0); Mean Platelet Vol. 10.9 fl (6.2-12.0); Monocyte# 0.32 X10^3/uL; NRBC Flagged by Analyzer 0 % (0-5); Neutrophil # 3.39 X10^3/uL (2.7-7.7); Neutrophil % 74.4 % (47-70); POSITIVE COUNT YES; Platelet Count 54 K/mm3 (150-450); RBC Distribution Width CV 13.1 % (11.6-14.6); RBC Distribution Width SD 45.1 fl (35.1-43.9); Red Blood Count 4.22 M/mm3 (4.2-5.4); White Blood Count 4.6 K/mm3 (4.4-11.0)
[2021-04-24 12:33] LABS: ALB/GLOB Ratio 0.6 RATIO (0.9-2.4); AST(SGOT) 28 U/L (15-37); Alanine Aminotransfer ALT/SGPT 24 U/L (13-56); Albumin, Serum 2.6 g/dL (3.2-5.0); Alkaline Phosphatase 96 U/L (45-117); Anion Gap 5 (5-15); BUN 15 mg/dL (7-18); BUN/Creat Ratio 12.9 RATIO (10-20); Calcium,Total 9.1 mg/dL (8.5-10.1); Chloride 108 mmol/L (98-107); Creatinine, Serum 1.16 mg/dL (0.55-1.02); EST Glomerular Filtration Rate 51 mL/min (>60); Est Glom Filt Rate - Afr Amer 62 mL/min (>60); Glucose 196 mg/dL (74-106); Protein, Total 6.6 g/dL (6.4-8.2); Sodium Level 139 mmol/L (136-145)
[2021-04-24 13:08] LABS: Hemoglobin A1c 6.7 % (3.8-5.6)
== END ==
PROVIDERS: PCP Family Medicine; Referring Provider Family Medicine; Visit Provider Family Medicine
DX: E11.8 Type 2 diabetes mellitus with unspecified complications (principal); M25.511 Pain in right shoulder
CPT/HCPCS: 36415; 80053; 83036; 85025

== ENCOUNTER → 2021-06-19 | Outpatient (CLI) | payer BC, SELFPAY | END | disposition home or self-care (01) | LOC: LABSPEC 15:11 | PROVIDERS: PCP Family Medicine; Visit Provider Family Medicine | DX: U07.1 COVID-19 (principal) | CPT/HCPCS: 87635; U0005; U0003 ==

== ENCOUNTER 2021-07-23 11:49 | Outpatient (CLI) | payer BC, SELFPAY ==
[2021-07-23 15:30] LABS: Absolute Lymphocyte Count 0.88 X10^3/uL (0.83-4.51); Absolute Neutrophil Count 3.6 X10^3/uL (2.0-7.7); Basophil# 0.02 X10^3/uL; Basophil% 0.4 % (0-1); Hematocrit 40.1 % (37-47); Hemoglobin 13.8 g/dL (12.0-15.0); Lymphocyte # 0.88 X10^3/ul (0.83-4.51); Lymphocyte % 17.6 % (19-41); Mean Corp Hgb Conc 34.4 g/dL (32-36); Mean Corpuscular Hgb 32.5 pg (27.0-32.0); Mean Corpuscular Volume 94.4 fL (81-99); Mean Platelet Vol. 10.8 fl (6.2-12.0); Monocyte# 0.34 X10^3/uL; Monocyte% 6.8 % (0-10); NRBC Flagged by Analyzer 0 % (0-5); Neutrophil # 3.64 X10^3/uL (2.7-7.7); Neutrophil % 72.8 % (47-70); POSITIVE COUNT YES; Platelet Count 56 K/mm3 (150-450); RBC Distribution Width CV 13.5 % (11.6-14.6); RBC Distribution Width SD 46.8 fl (35.1-43.9); Red Blood Count 4.25 M/mm3 (4.2-5.4)
[2021-07-23 15:39] LABS: Differential Indicated SCAN CRITERIA MET
[2021-07-23 15:56] LABS: ALB/GLOB Ratio 0.7 RATIO (0.9-2.4); AST(SGOT) 23 U/L (15-37); Alanine Aminotransfer ALT/SGPT 21 U/L (13-56); Albumin, Serum 2.8 g/dL (3.2-5.0); Alkaline Phosphatase 97 U/L (45-117); Anion Gap 3 (5-15); BUN 19 mg/dL (7-18); BUN/Creat Ratio 15.4 RATIO (10-20); Calcium,Total 8.9 mg/dL (8.5-10.1); Chloride 108 mmol/L (98-107); Creatinine, Serum 1.23 mg/dL (0.55-1.02); EST Glomerular Filtration Rate 48 mL/min (>60); Est Glom Filt Rate - Afr Amer 58 mL/min (>60); Glucose 273 mg/dL (74-106); Potassium 4.1 mmol/L (3.5-5.1); Protein, Total 6.8 g/dL (6.4-8.2); Sodium Level 138 mmol/L (136-145)
[2021-07-23 16:23] LABS: Microalbumin,Random Urine 28.3 mg/L (NO RANGE EST.); Microalbumin:Creatinine Ratio 17.8 mg/g CRE (<30 mg/g CRE)
[2021-07-23 16:27] LABS: Differential Comment SCANNED
== END 2021-07-23 23:59 | disposition short-term general hospital (02) ==
LOC: MFPLAB 11:50
PROVIDERS: PCP Family Medicine; Referring Provider Family Medicine; Visit Provider Family Medicine
DX: K74.60 Unspecified cirrhosis of liver (principal); N18.31 Chronic kidney disease, stage 3a
CPT/HCPCS: 36415; 80053; 82043; 82570; 85025

== ENCOUNTER → 2021-11-08 | Outpatient (CLI) | payer BC, SELFPAY ==
[2021-11-08 10:36] LABS: Absolute Lymphocyte Count 0.98 X10^3/uL (0.83-4.51); Absolute Neutrophil Count 3.4 X10^3/uL (2.0-7.7); Basophil# 0.02 X10^3/uL; Basophil% 0.4 % (0-1); Eosinophil# 0.14 X10^3/uL; Eosinophils% 2.8 % (0-5); Hematocrit 41.7 % (37-47); Hemoglobin 14.4 g/dL (12.0-15.0); Lymphocyte # 0.98 X10^3/ul (0.83-4.51); Lymphocyte % 19.9 % (19-41); Mean Corp Hgb Conc 34.5 g/dL (32-36); Mean Corpuscular Hgb 32.5 pg (27.0-32.0); Mean Corpuscular Volume 94.1 fL (81-99); Mean Platelet Vol. 10.3 fl (6.2-12.0); Monocyte# 0.41 X10^3/uL; Monocyte% 8.3 % (0-10); NRBC Flagged by Analyzer 0 % (0-5); Neutrophil # 3.35 X10^3/uL (2.7-7.7); Neutrophil % 68.2 % (47-70); POSITIVE COUNT YES; Platelet Count 54 K/mm3 (150-450); RBC Distribution Width CV 13.2 % (11.6-14.6); RBC Distribution Width SD 44.7 fl (35.1-43.9); Red Blood Count 4.43 M/mm3 (4.2-5.4); White Blood Count 4.9 K/mm3 (4.4-11.0)
[2021-11-08 11:05] LABS: ALB/GLOB Ratio 0.7 RATIO (0.9-2.4); AST(SGOT) 26 U/L (15-37); Alanine Aminotransfer ALT/SGPT 26 U/L (13-56); Albumin, Serum 2.9 g/dL (3.2-5.0); Alkaline Phosphatase 103 U/L (45-117); Anion Gap 6 (5-15); BUN 16 mg/dL (7-18); BUN/Creat Ratio 11.3 RATIO (10-20); CRP 8.68 mg/L (0.0-3.0); Calcium,Total 9.1 mg/dL (8.5-10.1); Chloride 109 mmol/L (98-107); Creatinine, Serum 1.42 mg/dL (0.55-1.02); EST Glomerular Filtration Rate 40 mL/min (>60); Est Glom Filt Rate - Afr Amer 49 mL/min (>60); Globulin 3.9 g/dL (2.2-4.2); Glucose 202 mg/dL (74-106); Potassium 4.1 mmol/L (3.5-5.1); Protein, Total 6.8 g/dL (6.4-8.2); Sodium Level 138 mmol/L (136-145)
== END | disposition home or self-care (01) ==
LOC: MFPLAB 09:05
PROVIDERS: PCP Family Medicine; Referring Provider Family Medicine; Visit Provider Family Medicine
DX: K04.7 Periapical abscess without sinus (principal)
CPT/HCPCS: 36415; 80053; 85025; 86140

== ENCOUNTER → 2021-12-05 | Outpatient (CLI) | payer BC, SELFPAY ==
[2021-12-05 12:42] LABS: ALB/GLOB Ratio 0.8 RATIO (0.9-2.4); AST(SGOT) 22 U/L (15-37); Alanine Aminotransfer ALT/SGPT 24 U/L (13-56); Alkaline Phosphatase 109 U/L (45-117); Anion Gap 5 (5-15); BUN 16 mg/dL (7-18); BUN/Creat Ratio 12.6 RATIO (10-20); Calcium,Total 9.1 mg/dL (8.5-10.1); Chloride 108 mmol/L (98-107); Creatinine, Serum 1.27 mg/dL (0.55-1.02); EST Glomerular Filtration Rate 46 mL/min (>60); Est Glom Filt Rate - Afr Amer 55 mL/min (>60); Globulin 3.8 g/dL (2.2-4.2); Glucose 211 mg/dL (74-106); Magnesium 1.9 mg/dL (1.6-2.6); Protein, Total 6.8 g/dL (6.4-8.2); Sodium Level 137 mmol/L (136-145)
== END | disposition home or self-care (01) ==
LOC: MFPLAB 09:59
PROVIDERS: PCP Family Medicine; Referring Provider Family Medicine; Visit Provider Family Medicine
DX: R25.2 Cramp and spasm (principal)
CPT/HCPCS: 36415; 80053; 83735

== ENCOUNTER → 2022-06-25 | Outpatient (CLI) | payer BC, SELFPAY ==
[2022-06-25 18:53] LABS: Cholesterol 133 mg/dL (200); High Density Lipoprotein 54 mg/dL; Triglycerides 91 mg/dL; Very Low Density Lipoprotein 18 mg/dL (5-40)
== END | disposition home or self-care (01) ==
LOC: MFPLAB 14:10
PROVIDERS: PCP Family Medicine; Visit Provider Nurse Practitioner Family
DX: Z13.220 Encounter for screening for lipoid disorders (principal)
CPT/HCPCS: 36415; 80061

== ENCOUNTER → 2022-07-21 | Outpatient (CLI) | payer BC, SELFPAY ==
[2022-07-21 12:10] LABS: Hematocrit 40.5 % (37-47); Mean Corp Hgb Conc 34.6 g/dL (32-36); Mean Corpuscular Hgb 32.6 pg (27.0-32.0); Mean Corpuscular Volume 94.4 fL (81-99); Mean Platelet Vol. 10.5 fl (6.2-12.0); POSITIVE COUNT YES; Platelet Count 74 K/mm3 (150-450); RBC Distribution Width SD 44.8 fl (35.1-43.9); Red Blood Count 4.29 M/mm3 (4.2-5.4); White Blood Count 6.2 K/mm3 (4.4-11.0)
[2022-07-21 12:18] LABS: Scan Indicated on CBC? Y/N NO
[2022-07-21 13:00] LABS: ALB/GLOB Ratio 0.8 RATIO (0.9-2.4); AST(SGOT) 24 U/L (15-37); Alanine Aminotransfer ALT/SGPT 21 U/L (13-56); Albumin, Serum 2.8 g/dL (3.2-5.0); Alkaline Phosphatase 98 U/L (45-117); Anion Gap 9 (5-15); BUN 15 mg/dL (7-18); BUN/Creat Ratio 12.3 RATIO (10-20); Chloride 109 mmol/L (98-107); Creatinine, Serum 1.22 mg/dL (0.55-1.02); EST Glomerular Filtration Rate 48 mL/min (>60); Est Glom Filt Rate - Afr Amer 58 mL/min (>60); Globulin 3.7 g/dL (2.2-4.2); Glucose 207 mg/dL (74-106); Potassium 4.2 mmol/L (3.5-5.1); Protein, Total 6.5 g/dL (6.4-8.2); Sodium Level 140 mmol/L (136-145); Thyroid Stim Hormone (TSH) 2.28 uIU/mL (0.358-3.74)
[2022-07-21 13:07] LABS: Microalbumin,Random Urine 5.4 mg/L (NO RANGE EST.); Microalbumin:Creatinine Ratio 2.7 mg/g CRE (<30 mg/g CRE)
== END | disposition home or self-care (01) ==
LOC: MFPLAB 10:14
PROVIDERS: PCP Family Medicine; Visit Provider Family Medicine
DX: E11.22 Type 2 diabetes mellitus with diabetic chronic kidney disease (principal); K74.60 Unspecified cirrhosis of liver; E11.21 Type 2 diabetes mellitus with diabetic nephropathy; N18.32 Chronic kidney disease, stage 3b
CPT/HCPCS: 36415; 80053; 82043; 82306; 82570; 84443; 85027

== ENCOUNTER → 2023-06-29 | Outpatient (CLI) | payer BC, SELFPAY ==
[2023-06-29 17:42] LABS: Absolute Lymphocyte Count 1.14 X10^3/uL (0.83-4.51); Absolute Neutrophil Count 3.7 X10^3/uL (2.0-7.7); Basophil# 0.01 X10^3/uL; Basophil% 0.2 % (0-1); Eosinophil# 0.08 X10^3/uL; Eosinophils% 1.5 % (0-5); Hematocrit 40.9 % (37-47); Hemoglobin 13.7 g/dL (12.0-15.0); Lymphocyte # 1.14 X10^3/ul (0.83-4.51); Lymphocyte % 21.3 % (19-41); Mean Corp Hgb Conc 33.5 g/dL (32-36); Mean Corpuscular Hgb 32.2 pg (27.0-32.0); Mean Corpuscular Volume 96.2 fL (81-99); Mean Platelet Vol. 11.1 fl (6.2-12.0); Monocyte# 0.44 X10^3/uL; Monocyte% 8.2 % (0-10); NRBC Flagged by Analyzer 0 % (0-5); Neutrophil # 3.65 X10^3/uL (2.7-7.7); Neutrophil % 68.2 % (47-70); POSITIVE COUNT YES; Platelet Count 59 K/mm3 (150-450); RBC Distribution Width CV 12.8 % (11.6-14.6); RBC Distribution Width SD 44.6 fl (35.1-43.9); Red Blood Count 4.25 M/mm3 (4.2-5.4); White Blood Count 5.4 K/mm3 (4.4-11.0)
[2023-06-29 18:01] LABS: ALB/GLOB Ratio 0.9 RATIO (0.9-2.4); AST(SGOT) 31 U/L (15-37); Alanine Aminotransfer ALT/SGPT 28 U/L (13-56); Albumin, Serum 2.9 g/dL (3.2-5.0); Alkaline Phosphatase 96 U/L (45-117); Anion Gap 4 (5-15); BUN 28 mg/dL (7-18); BUN/Creat Ratio 20.6 RATIO (10-20); CPK Total, Creatine Kinase 38 U/L (26-192); Calcium,Total 8.4 mg/dL (8.5-10.1); Chloride 108 mmol/L (98-107); Creatinine, Serum 1.36 mg/dL (0.55-1.02); EST Glomerular Filtration Rate 42 mL/min (>60); Est Glom Filt Rate - Afr Amer 51 mL/min (>60); Globulin 3.3 g/dL (2.2-4.2); Glucose 225 mg/dL (74-106); Potassium 3.9 mmol/L (3.5-5.1); Protein, Total 6.2 g/dL (6.4-8.2); Sodium Level 138 mmol/L (136-145)
[2023-06-29 18:18] LABS: Differential Indicated SCAN CRITERIA MET
[2023-06-29 18:20] LABS: Anisocytosis RARE; Macrocytosis RARE; Platelet Estimate MOD DEC (ADEQ); Red Cell Morphology N CHROM NORMAL (NORM C&C)
== END | disposition home or self-care (01) ==
LOC: MFPLAB 14:12
PROVIDERS: PCP Family Medicine; Visit Provider Family Medicine
DX: E11.22 Type 2 diabetes mellitus with diabetic chronic kidney disease (principal); D69.6 Thrombocytopenia, unspecified; N18.32 Chronic kidney disease, stage 3b; S06.0XAA Concussion with loss of consciousness status unknown, initial encounter
CPT/HCPCS: 36415; 80053; 82550; 85025

== ENCOUNTER → 2023-09-07 | Outpatient (CLI) | payer BC, SELFPAY ==
[2023-09-07 17:46] LABS: Hematocrit 42.4 % (37-47); Hemoglobin 14.2 g/dL (12.0-15.0); Mean Corp Hgb Conc 33.5 g/dL (32-36); Mean Corpuscular Hgb 32.1 pg (27.0-32.0); Mean Corpuscular Volume 95.7 fL (81-99); Mean Platelet Vol. 10.8 fl (6.2-12.0); POSITIVE COUNT YES; Platelet Count 54 K/mm3 (150-450); RBC Distribution Width CV 12.9 % (11.6-14.6); RBC Distribution Width SD 45.3 fl (35.1-43.9); Red Blood Count 4.43 M/mm3 (4.2-5.4); White Blood Count 5.2 K/mm3 (4.4-11.0)
[2023-09-07 17:55] LABS: Hemoglobin A1c 7.2 % (3.8-5.6)
[2023-09-07 18:07] LABS: AST(SGOT) 24 U/L (15-37); Alanine Aminotransfer ALT/SGPT 20 U/L (13-56); Albumin, Serum 3.1 g/dL (3.2-5.0); Alkaline Phosphatase 97 U/L (45-117); Anion Gap 5 (5-15); BUN 13 mg/dL (7-18); BUN/Creat Ratio 10.2 RATIO (10-20); Calcium,Total 9.2 mg/dL (8.5-10.1); Chloride 108 mmol/L (98-107); Creatinine, Serum 1.28 mg/dL (0.55-1.02); EST Glomerular Filtration Rate 45 mL/min (>60); Est Glom Filt Rate - Afr Amer 55 mL/min (>60); Globulin 3.2 g/dL (2.2-4.2); Glucose 317 mg/dL (74-106); Potassium 3.8 mmol/L (3.5-5.1); Protein, Total 6.3 g/dL (6.4-8.2); Sodium Level 139 mmol/L (136-145)
[2023-09-07 18:23] LABS: Scan Indicated on CBC? Y/N YES- FLAGS NOTED
== END | disposition home or self-care (01) ==
LOC: MFPLAB 15:00
PROVIDERS: PCP Family Medicine; Visit Provider Family Medicine
DX: E11.8 Type 2 diabetes mellitus with unspecified complications (principal); M25.559 Pain in unspecified hip
CPT/HCPCS: 36415; 80053; 83036; 85027

== ENCOUNTER → 2024-02-15 | Outpatient (CLI) | payer BC, SELFPAY ==
--- NOTE | 2024-02-15 10:19 | RAD_ITS ---
STUDY: X-RAY CHEST REASON FOR EXAM: Female, 63 years old. ASTHMA, MILD INTERMITTENT TECHNIQUE: Frontal and lateral views of the chest. COMPARISON: 02/02/2021. FINDINGS: There is hyperinflation of the lungs consistent with chronic obstructive lung disease (COPD). No infiltrates. No effusions. There is no demonstrated pleural abnormality. Normal size heart. Normal mediastinum and ruben. Normal visualized pulmonary arteries. Normal visualized aortic arch and descending thoracic aorta. There are diffuse degenerative changes of the visualized thoracic spine. Normal visualized ribs, clavicles, and shoulders. There is no demonstrated abnormality of the visualized soft tissue structures of the upper abdomen. RAD/Chest PA and Lateral IMPRESSION: Findings consistent with COPD/asthma. No acute chest disease. Electronically Signed: Chava Olivier MD at 23:01 EDT ,
== END | disposition home or self-care (01) ==
PROVIDERS: PCP Family Medicine; Referring Provider Family Medicine; Visit Provider Family Medicine
DX: J45.20 Mild intermittent asthma, uncomplicated (principal)
CPT/HCPCS: 71046

== ENCOUNTER → 2024-03-14 | Outpatient (CLI) | payer BC, SELFPAY ==
[2024-03-14 12:21] LABS: Absolute Lymphocyte Count 0.88 X10^3/uL (0.83-4.51); Absolute Neutrophil Count 4.2 X10^3/uL (2.0-7.7); Basophil# 0.03 X10^3/uL; Basophil% 0.5 % (0-1); Eosinophil# 0.12 X10^3/uL; Eosinophils% 2.1 % (0-5); Hematocrit 40.9 % (37-47); Hemoglobin 13.5 g/dL (12.0-15.0); Lymphocyte # 0.88 X10^3/ul (0.83-4.51); Lymphocyte % 15.7 % (19-41); Mean Corpuscular Volume 93.8 fL (81-99); Mean Platelet Vol. 11.1 fl (6.2-12.0); Monocyte# 0.35 X10^3/uL; Monocyte% 6.2 % (0-10); NRBC Flagged by Analyzer 0 % (0-5); Neutrophil # 4.22 X10^3/uL (2.7-7.7); Neutrophil % 75.1 % (47-70); POSITIVE COUNT YES; Platelet Count 52 K/mm3 (150-450); RBC Distribution Width CV 13.4 % (11.6-14.6); Red Blood Count 4.36 M/mm3 (4.2-5.4); White Blood Count 5.6 K/mm3 (4.4-11.0)
[2024-03-14 12:24] LABS: ALB/GLOB Ratio 0.9 RATIO (0.9-2.4); AST(SGOT) 33 U/L (15-37); Alanine Aminotransfer ALT/SGPT 26 U/L (13-56); Albumin, Serum 2.8 g/dL (3.2-5.0); Alkaline Phosphatase 117 U/L (45-117); Anion Gap 5 (5-15); BUN 12 mg/dL (7-18); Calcium,Total 8.8 mg/dL (8.5-10.1); Chloride 109 mmol/L (98-107); Creatinine, Serum 1.09 mg/dL (0.55-1.02); EST Glomerular Filtration Rate 54 mL/min (>60); Est Glom Filt Rate - Afr Amer 66 mL/min (>60); Globulin 3.1 g/dL (2.2-4.2); Glucose 179 mg/dL (74-106); Potassium 3.5 mmol/L (3.5-5.1); Protein, Total 5.9 g/dL (6.4-8.2); Sodium Level 140 mmol/L (136-145)
== END | disposition home or self-care (01) ==
LOC: MFPLAB 09:35
PROVIDERS: PCP Family Medicine; Visit Provider Family Medicine
DX: E11.21 Type 2 diabetes mellitus with diabetic nephropathy (principal); K74.60 Unspecified cirrhosis of liver
CPT/HCPCS: 36415; 80053; 85025

== ENCOUNTER → 2024-05-13 | Outpatient (CLI) | payer BC, SELFPAY ==
[2024-05-13 16:02] LABS: Microalbumin,Random Urine 20.9 mg/L (NO RANGE EST.); Microalbumin:Creatinine Ratio 15.4 mg/g CRE (<30 mg/g CRE)
[2024-05-13 16:11] LABS: Erythrocyte Sedimentation Rate 4 mm/hr (0-30)
[2024-05-13 16:15] LABS: PTHIN 22.5 pg/mL (18.4-80.1)
[2024-05-13 16:46] LABS: ALB/GLOB Ratio 0.8 RATIO (0.9-2.4); AST(SGOT) 38 U/L (15-37); Alanine Aminotransfer ALT/SGPT 24 U/L (13-56); Albumin, Serum 2.7 g/dL (3.2-5.0); Alkaline Phosphatase 128 U/L (45-117); Anion Gap 6 (5-15); BUN 10 mg/dL (7-18); Calcium,Total 8.7 mg/dL (8.5-10.1); Chloride 110 mmol/L (98-107); Creatinine, Serum 1.11 mg/dL (0.55-1.02); EST Glomerular Filtration Rate 53 mL/min (>60); Est Glom Filt Rate - Afr Amer 64 mL/min (>60); Globulin 3.6 g/dL (2.2-4.2); Glucose 233 mg/dL (74-106); Potassium 3.9 mmol/L (3.5-5.1); Protein, Total 6.3 g/dL (6.4-8.2); Sodium Level 142 mmol/L (136-145)
[2024-05-16 11:08] LABS: ANTINUCLEAR ANTIBODIES DIRECT Negative (Negative)
[2024-05-17 16:10] LABS: Fructosamine 365 umol/L (0-285); PROEL- A/G Ratio 0.9 (0.7-1.7); PROEL- Albumin 2.8 g/dL (2.9-4.4); PROEL- Alpha-1 Globulin 0.3 g/dL (0.0-0.4); PROEL- Alpha-2 Globulin 0.5 g/dL (0.4-1.0); PROEL- Gamma Globulin 1.2 g/dL (0.4-1.8); PROEL- TOTAL PROTEIN 5.8 g/dL (6.0-8.5); PROEL-M-Spike Not Observed g/dL (Not Observed); QNTFERON TB Mitogen Value > 10.00 IU/mL (.); QNTFERON TB Nil Value 0 IU/mL (.); QNTFERON TB1+ Ag Value 0 IU/mL (.); QNTFERON TB2+ Ag Value 0.03 IU/mL (.); QNTIFERON TB Positive Criteria Negative (Negative)
== END | disposition home or self-care (01) ==
LOC: MFPLAB 11:16
PROVIDERS: PCP Family Medicine; Referring Provider Family Medicine; Visit Provider Family Medicine
DX: R61 Generalized hyperhidrosis (principal); Z68.41 Body mass index [BMI] 40.0-44.9, adult; E11.21 Type 2 diabetes mellitus with diabetic nephropathy; E11.22 Type 2 diabetes mellitus with diabetic chronic kidney disease; N18.32 Chronic kidney disease, stage 3b; E66.813 Obesity, class 3
CPT/HCPCS: 36415; 80053; 82024; 82043; 82533; 82570; 82985; 83970; 84165; 84443; 85652; 86038; 86140; 86480

== ENCOUNTER → 2024-06-08 | Outpatient (CLI) | payer BC, SELFPAY ==
[2024-06-08 18:07] LABS: Absolute Lymphocyte Count 1.19 X10^3/uL (0.83-4.51); Absolute Neutrophil Count 7.4 X10^3/uL (2.0-7.7); Basophil# 0.03 X10^3/uL; Basophil% 0.3 % (0-1); Eosinophil# 0.05 X10^3/uL; Eosinophils% 0.5 % (0-5); Hematocrit 42.9 % (37-47); Hemoglobin 14.3 g/dL (12.0-15.0); Lymphocyte # 1.19 X10^3/ul (0.83-4.51); Lymphocyte % 12.4 % (19-41); Mean Corp Hgb Conc 33.3 g/dL (32-36); Mean Corpuscular Volume 93.1 fL (81-99); Mean Platelet Vol. 10.1 fl (6.2-12.0); Monocyte# 0.73 X10^3/uL; Monocyte% 7.6 % (0-10); NRBC Flagged by Analyzer 0 % (0-5); Neutrophil # 7.43 X10^3/uL (2.7-7.7); Neutrophil % 77.3 % (47-70); POSITIVE COUNT YES; Platelet Count 65 K/mm3 (150-450); RBC Distribution Width CV 13.7 % (11.6-14.6); RBC Distribution Width SD 46.2 fl (35.1-43.9); Red Blood Count 4.61 M/mm3 (4.2-5.4); White Blood Count 9.6 K/mm3 (4.4-11.0)
[2024-06-08 18:34] LABS: ALB/GLOB Ratio 0.7 RATIO (0.9-2.4); AST(SGOT) 24 U/L (15-37); Alanine Aminotransfer ALT/SGPT 20 U/L (13-56); Albumin, Serum 2.6 g/dL (3.2-5.0); Alkaline Phosphatase 119 U/L (45-117); Anion Gap 5 (5-15); BUN 15 mg/dL (7-18); BUN/Creat Ratio 12.9 RATIO (10-20); Calcium,Total 8.9 mg/dL (8.5-10.1); Chloride 108 mmol/L (98-107); Creatinine, Serum 1.16 mg/dL (0.55-1.02); EST Glomerular Filtration Rate 50 mL/min (>60); Est Glom Filt Rate - Afr Amer 61 mL/min (>60); Globulin 3.6 g/dL (2.2-4.2); Glucose 216 mg/dL (74-106); Potassium 3.8 mmol/L (3.5-5.1); Protein, Total 6.2 g/dL (6.4-8.2); Sodium Level 140 mmol/L (136-145)
== END | disposition home or self-care (01) ==
LOC: MFPLAB 16:43
PROVIDERS: Nurse Practitioner Family; PCP Family Medicine; Referring Provider Family Medicine; Visit Provider Family Medicine
DX: R11.10 Vomiting, unspecified (principal)
CPT/HCPCS: 36415; 80053; 85025

== ENCOUNTER → 2024-07-18 | Outpatient (CLI) | payer BC, SELFPAY ==
[2024-07-18 15:49] LABS: Erythrocyte Sedimentation Rate 5 mm/hr (0-30)
[2024-07-18 15:54] LABS: Absolute Lymphocyte Count 0.81 X10^3/uL (0.83-4.51); Absolute Neutrophil Count 3.1 X10^3/uL (2.0-7.7); Basophil# 0.03 X10^3/uL; Basophil% 0.7 % (0-1); Eosinophil# 0.09 X10^3/uL; Hematocrit 39.1 % (37-47); Hemoglobin 13.5 g/dL (12.0-15.0); Lymphocyte # 0.81 X10^3/ul (0.83-4.51); Lymphocyte % 18.1 % (19-41); Mean Corp Hgb Conc 34.5 g/dL (32-36); Mean Corpuscular Hgb 32.1 pg (27.0-32.0); Mean Corpuscular Volume 92.9 fL (81-99); Mean Platelet Vol. 10.6 fl (6.2-12.0); Monocyte# 0.39 X10^3/uL; Monocyte% 8.7 % (0-10); NRBC Flagged by Analyzer 0 % (0-5); Neutrophil # 3.14 X10^3/uL (2.7-7.7); Neutrophil % 70.1 % (47-70); POSITIVE COUNT YES; Platelet Count 52 K/mm3 (150-450); RBC Distribution Width CV 13.6 % (11.6-14.6); RBC Distribution Width SD 45.7 fl (35.1-43.9); Red Blood Count 4.21 M/mm3 (4.2-5.4); White Blood Count 4.5 K/mm3 (4.4-11.0)
[2024-07-18 16:19] LABS: ALB/GLOB Ratio 0.8 RATIO (0.9-2.4); AST(SGOT) 35 U/L (15-37); Alanine Aminotransfer ALT/SGPT 25 U/L (13-56); Albumin, Serum 2.7 g/dL (3.2-5.0); Alkaline Phosphatase 132 U/L (45-117); Anion Gap 7 (5-15); BUN 15 mg/dL (7-18); Chloride 110 mmol/L (98-107); Creatinine, Serum 1.25 mg/dL (0.55-1.02); EST Glomerular Filtration Rate 46 mL/min (>60); Est Glom Filt Rate - Afr Amer 56 mL/min (>60); Globulin 3.5 g/dL (2.2-4.2); Glucose 269 mg/dL (74-106); Potassium 3.9 mmol/L (3.5-5.1); Protein, Total 6.2 g/dL (6.4-8.2); Sodium Level 140 mmol/L (136-145)
== END | disposition home or self-care (01) ==
LOC: MFPLAB 12:22
PROVIDERS: PCP Family Medicine; Referring Provider Family Medicine; Visit Provider Family Medicine
DX: R35.0 Frequency of micturition (principal); R10.9 Unspecified abdominal pain
CPT/HCPCS: 36415; 80053; 85025; 85652; 86140; 87086; 87088

== ENCOUNTER 2024-12-12 11:21 | Outpatient (CLI) | payer BC, SELFPAY ==
[2024-12-12 15:16] LABS: Absolute Lymphocyte Count 0.92 X10^3/uL (0.83-4.51); Absolute Neutrophil Count 3.1 X10^3/uL (2.0-7.7); Basophil# 0.02 X10^3/uL; Basophil% 0.4 % (0-1); Eosinophil# 0.16 X10^3/uL; Eosinophils% 3.5 % (0-5); Hematocrit 39.1 % (37-47); Lymphocyte # 0.92 X10^3/ul (0.83-4.51); Lymphocyte % 19.9 % (19-41); Mean Corp Hgb Conc 33.2 g/dL (32-36); Mean Corpuscular Hgb 31.7 pg (27.0-32.0); Mean Corpuscular Volume 95.4 fL (81-99); Mean Platelet Vol. 11.5 fl (6.2-12.0); Monocyte# 0.37 X10^3/uL; NRBC Flagged by Analyzer 0 % (0-5); Neutrophil # 3.14 X10^3/uL (2.7-7.7); POSITIVE COUNT YES; RBC Distribution Width CV 13.7 % (11.6-14.6); RBC Distribution Width SD 48.2 fl (35.1-43.9); White Blood Count 4.6 K/mm3 (4.4-11.0)
[2024-12-12 15:20] LABS: International Normalized Ratio 1.2; Prothrombin Time (Protime)PT. 15.5 SECONDS (11.7-14.9)
[2024-12-12 15:21] LABS: Partial Thromboplast Time 33.2 Seconds (24.1-36.2)
[2024-12-12 16:08] LABS: Platelet Count 46 K/mm3 (150-450)
[2024-12-12 16:09] LABS: Vitamin D,25 Hydroxy 28.6 ng/mL (30-100)
[2024-12-12 16:10] LABS: ALB/GLOB Ratio 1.2 RATIO (0.9-2.4); AST(SGOT) 36 U/L (<=31); Alanine Aminotransfer ALT/SGPT 20 U/L (<=34); Albumin, Serum 3.2 g/dL (3.4-4.8); Alkaline Phosphatase 115 U/L (35-104); Anion Gap 8 (5-15); BUN 12 mg/dL (4-19); BUN/Creat Ratio 10.2 RATIO (10-20); Calcium,Total 9.1 mg/dL (7.6-11.0); Carbon Dioxide 23.9 mmol/L (21.0-32.0); Chloride 109 mmol/L (98-108); Creatinine, Serum 1.18 mg/dL (0.70-1.20); EST Glomerular Filtration Rate 52 (>60); Globulin 2.6 g/dL (2.2-4.2); Glucose 163 mg/dL (70-99); Potassium 4.4 mmol/L (3.3-5.1); Protein, Total 5.8 g/dL (5.9-8.4); Sodium Level 142 mmol/L (133-145); Total Bilirubin 1.51 mg/dL (0.00-1.30)
[2024-12-12 16:20] LABS: Hemoglobin A1c 6.4 % (<=5.6)
[2024-12-12 16:37] LABS: Microalbumin,Random Urine 34.9 mg/L (NO RANGE EST.); Microalbumin:Creatinine Ratio 14.4 mg/g CRE
[2024-12-12 19:58] LABS: Differential Comment SCANNED
[2024-12-12 19:59] LABS: Platelet Estimate MKD DEC (ADEQ)
[2024-12-14 05:07] LABS: Fructosamine 282 umol/L (0-285)
[2024-12-28 15:37] LABS: Pathologist Review Reviewed
== END 2024-12-12 23:59 | disposition home or self-care (01) ==
LOC: MFPLAB 11:21
PROVIDERS: PCP Family Medicine; Visit Provider Family Medicine
DX: K74.60 Unspecified cirrhosis of liver (principal); E11.21 Type 2 diabetes mellitus with diabetic nephropathy; E11.22 Type 2 diabetes mellitus with diabetic chronic kidney disease; N18.32 Chronic kidney disease, stage 3b; D69.6 Thrombocytopenia, unspecified
CPT/HCPCS: 36415; 80053; 82043; 82306; 82570; 82985; 83036; 85025; 85610; 85730

== ENCOUNTER → 2024-12-16 | Outpatient (CLI) | payer BC, SELFPAY ==
[2024-12-16 12:43] LABS: Absolute Lymphocyte Count 0.78 X10^3/uL (0.83-4.51); Absolute Neutrophil Count 3.3 X10^3/uL (2.0-7.7); Basophil# 0.02 X10^3/uL; Basophil% 0.4 % (0-1); Eosinophil# 0.14 X10^3/uL; Eosinophils% 3.1 % (0-5); Hematocrit 37.3 % (37-47); Hemoglobin 12.8 g/dL (12.0-15.0); Lymphocyte # 0.78 X10^3/ul (0.83-4.51); Lymphocyte % 17.1 % (19-41); Mean Corp Hgb Conc 34.3 g/dL (32-36); Mean Corpuscular Hgb 32.1 pg (27.0-32.0); Mean Corpuscular Volume 93.5 fL (81-99); Mean Platelet Vol. 11.2 fl (6.2-12.0); Monocyte# 0.31 X10^3/uL; Monocyte% 6.8 % (0-10); NRBC Flagged by Analyzer 0 % (0-5); Neutrophil % 72.4 % (47-70); POSITIVE COUNT YES; RBC Distribution Width CV 13.4 % (11.6-14.6); RBC Distribution Width SD 46.1 fl (35.1-43.9); Red Blood Count 3.99 M/mm3 (4.2-5.4); White Blood Count 4.6 K/mm3 (4.4-11.0)
[2024-12-16 14:51] LABS: Platelet Count 44 K/mm3 (150-450)
--- OUTSIDE RECORDS SUMMARY | 2024-12-16 18:21 | XMS RPT_ITS | CCD ---
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 unclassified (2 sources) Menopause present; Translations: [Menopause] Chronic Residual codes; unclassified (18 sources) Obstructive sleep apnea syndrome; Translations: [Obstructive sleep apnea (adult)(pediatric)] Onset: 03-20-2017 03-20-2017 Chronic Residual codes; unclassified (1 source) Sleep apnea, unspecified; Translations: [Sleep apnea, unspecified] Onset: 04-11-2022 Chronic Residual codes; unclassified (12 sources) Menopause present; Translations: [Symptomatic menopausal or female climacteric states] Episodic Residual codes; unclassified (6 sources) Family history of malignant neoplasm of skin; Translations: [Family history of malignant neoplasm of other organs or systems] 07-30-2020 Episodic Spondylosis; intervertebral disc disorders; other back problems (14 sources) Low back pain; Translations: [Lumbago] Episodic Unclassified (1 source) Lng trm (crnt) use injectable non-insulin antidiabetic drugs; Translations: [Lng trm (crnt) use injectable non-insulin antidiabetic drugs] Onset: 04-11-2022 Past or Other Problems Problem Classification Problem Date Documented Da te Episodic/Chronic Intracranial injury (2 sources) Concussion without loss of consciousness, initial encounter; Translations: [Concussion without loss of consciousness, initial encounter] Onset: 06-18-2023 Episodic Nausea and vomiting (1 source) Vomiting, unspecified; Translations: [Vomiting, unspecified] Onset: 07-07-2024 Episodic Other aftercare (1 source) 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; Translations: [[facility] (current) use of insulin] Onset: 04-11-2022 Episodic Other aftercare (1 source) 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 drugs; Translations: [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 drugs] Onset: 04-11-2022 Episodic Other connective tissue disease (4 sources) Tenosynovitis; Translations: [Other synovitis and tenosynovitis, unspecified hand] Onset: 02-24-2003 10-16-2003 Episodic Other disorders of stomach and duodenum (1 source) Other diseases of stomach and duodenum; Translations: [Other diseases of stomach and duodenum] Onset: 04-11-2022 Episodic Other skin disorders (1 source) Generalized hyperhidrosis; Translations: [Generalized hyperhidrosis] Onset: 06-08-2024 Episodic Sprains and strains (2 sources) Strain of muscle, fascia and tendon at neck level, initial encounter; Translations: [Strain of muscle, fascia and tendon at neck level, initial encounter] Onset: 06-18-2023 Episodic Unclassified (2 sources) History of Screening for malignant neoplasms, colon Unclassified (8 sources) Patient encounter status; Translations: [Counseling for travel] Unclassified (2 sources) Cancer cervix screening status; Translations: [Screening for malignant neoplasm of cervix] Unclassified (12 sources) Screening for malignant neoplasms, colon Onset: 08-30-2008 NEGATED: Highlighted row has not occurred!Residual codes; unclassified (4 sources) Disease Episodic Results Test Name Value Interpretation Reference Range Facility Fructosamineon 12-14-2024 FRUCTOSAMINE 282 umol/L Normal 0-285 [facility] Comment on above: Result Comment: Publ ished reference interval for apparently healthy subjects between age 20 and 60 is 205 - 285 umol/L and in a poorly controlled diabetic population is 228 - 563 umol/L with a mean of 396 umol/L. Performed at: [facility], [place], [place] [id number] Airway Traffic Controller: Jeronimo Fontenot PhD, Phone: [phone] Performed By: #### L 300.4310, L501.9985, L500.4050, L100.0100, L300.3900, L502.0250 #### [facility] [place], [address] Absolute lymphocyte countOrd ered By: Darryl Nam on 12-12-2024 Lymphocytes Auto (Unsp spec) [#/Vol] 0.92 10*3/uL 0.83-4.51 [facility] Absolute neutrophil countOrd ered By: Darryl Nam on 12-12-2024 Neutrophils (Bld) [#/Vol] 3.1 10*3/uL 2.0-7.7 [facility] Activated partial thrombopla stin time (aPTT) in platelet poor plasma by coagulation aOrdered By: Darryl Nam on 12-12-2024 aPTT Coag (PPP) [Time] 33.2 s 24.1-36.2 [facility] Anion gap in Serum or Plasma Ordered By: Darryl Nam on 12-12-2024 Anion gap [Moles/Vol] 8 mmol/L 5-15 [facility] Automated lymphocyte count a s percentage of total leukocytesOrdered By: Darryl Nam on 12-12-2024 Lymphocytes/100 WBC Auto (Unsp spec) 19.9 % 19-41 [facility] BUN/creatinine ratioOrdered By: Darryl Nam on 12-12-2024 Urea nitrogen/Creatinine [Mass ratio] 10.2 mg/mg 10-20 [facility] Basophil percentageOrdered B y: Darryl Nam on 12-12-2024 Basophils/100 WBC (Bld) 0.4 % 0-1 [facility] Bilirubin, totalOrdered By: Darryl Nam on 12-12-2024 Bilirubin [Mass/Vol] 1.51 mg/dL High 0.00-1.30 [facility] Blood manual differential co mment interpretation (narrative result)Ordered By: Darryl Nam on 12-12-2024 Manual differential comment Aditya (Bld) [Interp] SCANNED [facility] CBC W/Diff, Automatedon 11-21 PATH REV May foll Normal [facility] Comment on above: Order Comment: Order Date: 08/08/24 Order Info: [id number] - CBCD Performed By: #### L 300.4310, L501.9985, L500.4050, L100.0100, L300.3900, L502.0250 #### [facility] [address] [place], [address] PLT EST MKD DEC Normal ADEQ [facility] Comment on above: Order Comment: Order Date: 08/08/24 Order Info: [id number] - CBCD Performed By: #### L 300.4310, L501.9985, L500.4050, L100.0100, L300.3900, L502.0250 #### [facility] [address] [place], [address] SMEAR COMMENT SCANNED Normal [facility] Comment on above: Order Comment: Order Date: 08/08/24 Order Info: [id number] - CBCD Performed By: #### L 300.4310, L501.9985, L500.4050, L100.0100, L300.3900, L502.0250 #### [facility] [address] [place], [address] Platelets (Bld) [#/Vol] 46 10*3/uL Invalid Interpretation Code 150-450 [facility] Comment on above: Order Comment: Order Date: 08/08/24 Order Info: [id number]- - CBCD Result Comment: CRIT ICAL VALUE CALLED TO Ginette MCGUIRE 12/12/24 Madeleine Emmanuel. RESULTS READ BACK BY SAME. Performed By: #### L 300.4310, L501.9985, L500.4050, L100.0100, L300.3900, L502.0250 #### [facility] [address] [place], [place], [id number] Carbon dioxide, total [Moles /volume] in Central venous bloodOrdered By: Darryl Nam on 12-12-2024 CO2 [Moles/Vol] 23.9 mmol/L 21.0-32.0 [facility] Chloride assayOrdered By: Bryn Nam on 12-12-2024 Chloride [Moles/Vol] 109 mmol/L High 98-108 [facility] Comprehensive Metabolic Prof ilon 12-12-2024 Albumin [Mass/Vol] 3.2 g/dL Low 3.4-4.8 [facility] Comment on above: Order Comment: Order Date: 08/08/24 Order Info: 0786-1 - CMP fuctosamine Performed By: #### L 300.4310, L501.9985, L500.4050, L100.0100, L300.3900, L502.0250 #### [facility] [address] [place], [place], [id number] Albumin/Globulin [Mass ratio] 1.2 {ratio} Normal 0.9-2.4 [facility] Comment on above: Order Comment: Order Date: 08/08/24 Order Info: 0786-1 - CMP fuctosamine Performed By: #### L 300.4310, L501.9985, L500.4050, L100.0100, L300.3900, L502.0250 #### [facility] [address] [place], [place], [id number] ALK PHOS 115 U/L High 35-104 [facility] Comment on above: Order Comment: Order Date: 08/08/24 Order Info: 0786-1 - CMP fuctosamine Performed By: #### L 300.4310, L501.9985, L500.4050, L100.0100, L300.3900, L502.0250 #### [facility] [address] [place], [place], [id number] ALT [Catalytic activity/Vol] 20 U/L Normal <=34 [facility] Comment on above: Order Comment: Order Date: 08/08/24 Order Info: 0786-1 - CMP fuctosamine Performed By: #### L 300.4310, L501.9985, L500.4050, L100.0100, L300.3900, L502.0250 #### [facility] [address] [place], [address] AST [Catalytic activity/Vol] 36 U/L High <=31 [facility] Comment on above: Order Comment: Order Date: 08/08/24 Order Info: 0786-1 - CMP fuctosamine Performed By: #### L 300.4310, L501.9985, L500.4050, L100.0100, L300.3900, L502.0250 #### [facility] [address] [place], [place], [id number] Bilirubin [Mass/Vol] 1.51 mg/dL High 0.00-1.30 [facility] Comment on above: Order Comment: Order Date: 08/08/24 Order Info: 0786-1 - CMP fuctosamine Performed By: #### L 300.4310, L501.9985, L500.4050, L100.0100, L300.3900, L502.0250 #### [facility] [address] [place], [address] BUN/CRE 10.2 RATIO Normal 10-20 [facility] Comment on above: Order Comment: Order Date: 08/08/24 Order Info: 0786-1 - CMP fuctosamine Performed By: #### L 300.4310, L501.9985, L500.4050, L100.0100, L300.3900, L502.0250 #### [facility] [address] [place], [address] Calcium [Mass/Vol] 9.1 mg/dL Normal 7.6-11.0 [facility] Comment on above: Order Comment: Order Date: 08/08/24 Order Info: 0786-1 - CMP fuctosamine Performed By: #### L 300.4310, L501.9985, L500.4050, L100.0100, L300.3900, L502.0250 #### [facility] [address] [place], [place], [id number] Chloride [Moles/Vol] 109 mmol/L High 98-108 [facility] Comment on above: Order Comment: Order Date: 08/08/24 Order Info: 0786-1 - CMP fuctosamine Performed By: #### L 300.4310, L501.9985, L500.4050, L100.0100, L300.3900, L502.0250 #### [facility] [address] [place], [place], [address] CO2 [Moles/Vol] 23.9 mmol/L Normal 21.0-32.0 [facility] Comment on above: Order Comment: Order Date: 08/08/24 Order Info: 0786-1 - CMP fuctosamine Performed By: #### L 300.4310, L501.9985, L500.4050, L100.0100, L300.3900, L502.0250 #### [facility] [address] [place], [place], [address] Creatinine [Mass/Vol] 1.18 mg/dL Normal 0.70-1.20 [facility] Comment on above: Order Comment: Order Date: 08/08/24 Order Info: 0786-1 - CMP fuctosamine Performed By: #### L 300.4310, L501.9985, L500.4050, L100.0100, L300.3900, L502.0250 #### [facility] [address] [place], [address] GAP 8 Normal 5-15 [facility] Comment on above: Order Comment: Order Date: 08/08/24 Order Info: 0786-1 - CMP fuctosamine Performed By: #### L 300.4310, L501.9985, L500.4050, L100.0100, L300.3900, L502.0250 #### [facility] [address] [place], [address] GFR/1.73 sq M.predicted among non-blacks MDRD (S/P/Bld) [Vol rate/Area] 52 mL/min/{1.73_m2} Low >60 [facility] Comment on above: Order Comment: Order Date: 08/08/24 Order Info: 0786-1 - CMP fuctosamine Result Comment: mL/m in/1.73m2 CKD-EPI Creatinine Equation (2020) Performed By: #### L 300.4310, L501.9985, L500.4050, L100.0100, L300.3900, L502.0250 #### [facility] [address] [place], [address] Globulin (S) [Mass/Vol] 2.6 g/dL Normal 2.2-4.2 [facility] Comment on above: Order Comment: Order Date: 08/08/24 Order Info: 0786-1 - CMP fuctosamine Performed By: #### L 300.4310, L501.9985, L500.4050, L100.0100, L300.3900, L502.0250 #### [facility] [address] [place], [address] Glucose [Mass/Vol] 163 mg/dL High 70-99 [facility] Comment on above: Order Comment: Order Date: 08/08/24 Order Info: 0786-1 - CMP fuctosamine Performed By: #### L 300.4310, L501.9985, L500.4050, L100.0100, L300.3900, L502.0250 #### [facility] [address] [place], [address] Potassium [Moles/Vol] 4.4 mmol/L Normal 3.3-5.1 [facility] Comment on above: Order Comment: Order Date: 08/08/24 Order Info: 0786-1 - CMP fuctosamine Result Comment: Hemo lysis present, Results??could be affected. ?? Performed By: #### L 300.4310, L501.9985, L500.4050, L100.0100, L300.3900, L502.0250 #### [facility] [address] [place], [address] Sodium [Moles/Vol] 142 mmol/L Normal 133-145 [facility] Comment on above: Order Comment: Order Date: 08/08/24 Order Info: 0786-1 - CMP fuctosamine Performed By: #### L 300.4310, L501.9985, L500.4050, L100.0100, L300.3900, L502.0250 #### [facility] [address] [place], [address] T PROT 5.8 g/dL Low 5.9-8.4 [facility] Comment on above: Order Comment: Order Date: 08/08/24 Order Info: 0786-1 - CMP fuctosamine Performed By: #### L 300.4310, L501.9985, L500.4050, L100.0100, L300.3900, L502.0250 #### [facility] [address] [place], [address] Urea nitrogen [Mass/Vol] 12 mg/dL Normal 4-19 [facility] Comment on above: Order Comment: Order Date: 08/08/24 Order Info: 0786-1 - CMP fuctosamine Performed By: #### L 300.4310, L501.9985, L500.4050, L100.0100, L300.3900, L502.0250 #### [facility] [address] [place], [address] Eosinophil percentageOrdered By: Darryl Nam on 12-12-2024 Eosinophils/100 WBC (Bld) 3.5 % 0-5 [facility] Erythrocyte distribution wid th ratioOrdered By: Darryl Nam on 12-12-2024 Erythrocyte distribution width (RBC) [Ratio] 13.7 % 11.6-14.6 [facility] Erythrocyte distribution wid th standard deviationOrdered By: Darryl Nam on 12-12-2024 Erythrocyte distribution width (RBC) [Ratio] 48.2 fl High 35.1-43.9 [facility] Glomerular filtration rate ( GFR) estimation/1.73 sq m using serum, plasma, or whole bOrdered By: Darryl Nam on 12-12-2024 GFR/1.73 sq M.predicted among non-blacks MDRD (S/P/Bld) [Vol rate/Area] 52 mL/min/{1.73_m2} Low >60 [facility] Comment on above: mL/min/1.73m2 CKD-EP I Creatinine Equation (2020) Hematocrit Auto (Bld) [Volum e fraction]Ordered By: Darryl Nam on 12-12-2024 Hematocrit (Bld) [Volume fraction] 39.1 % 37-47 [facility] Hemoglobin A1con 12-12-2024 HbA1c (Bld) [Mass fraction] 6.4 % High <=5.6 [facility] Comment on above: Order Comment: Order Date: 08/08/24 Order Info: 4548-4 - A1C Result Comment: Norm al < 5.7 % Prediabetic 5.7 - 6.4 % Diabetic >or= 6.5 % Please note range changes. Performed By: #### L 300.4310, L501.9985, L500.4050, L100.0100, L300.3900, L502.0250 #### [facility] [address] [place], [address] Hemoglobin A1c percentageOrd ered By: Darryl Nam on 12-12-2024 HbA1c (Bld) [Mass fraction] 6.4 % High <5.7 [facility] Comment on above: Normal < 5.7 % Predi abetic 5.7 - 6.4 % Diabetic >or= 6.5 % Please note range changes. Hemoglobin measurementOrdere d By: Darryl Nam on 12-12-2024 Hemoglobin (Bld) [Mass/Vol] 13.0 g/dL 12.0-15.0 [facility] Immature granulocytes/100 WB C Auto (Bld)Ordered By: Darryl Nam on 12-12-2024 Immature granulocytes/100 WBC (Bld) 0.200 % 0.0-0.9 [facility] Comment on above: IG% - Immature Granu locytes (promyelocytes, myelocytes and metamyelocytes) > 1% indicates that a LEFT SHIFT is Present. International normalized rat io (INR) calculationOrdered By: Darryl Nam on 12-12-2024 INR Coag (Bld) [Relative time] 1.2 {INR} [facility] - Chemistry and C hemistry - challengeOrdered By: Darryl Nam on 12-12-2024 AST [Catalytic activity/Vol] 36 U/L High <32 [facility] MCV (mean corpuscular volume ) determinationOrdered By: Darryl Nam on 12-12-2024 MCV (RBC) [Entitic vol] 95.4 fL 81-99 [facility] Mean corpuscular hemoglobin (MCH) determinationOrdered By: Darryl Nam on 12-12-2024 MCH (RBC) [Entitic mass] 31.7 pg 27.0-32.0 [facility] Mean corpuscular hemoglobin concentration (MCHC) determinationOrdered By: Darryl Nam on 12-12-2024 MCHC (RBC) [Mass/Vol] 33.2 g/dL 32-36 [facility] Mean platelet volume determi nationOrdered By: Darryl Nam on 12-12-2024 Platelet mean volume (Bld) [Entitic vol] 11.5 fL 6.2-12.0 [facility] Microalb:Creat Ratio,Random URon 12-12-2024 Creatinine [Mass/Vol] 242.00 mg/dL High 28.00- 217. 00 [facility] Comment on above: Order Comment: Order Date: 08/08/24 Order Info: 0779-1 - MIACRE Order Info: [id number] - MIALB Performed By: #### L 300.4310, L501.9985, L500.4050, L100.0100, L300.3900, L502.0250 #### [facility] [address] [place], [address] MALB:CREAT 14.4 mg/g CRE Normal [facility] Comment on above: Order Comment: Order Date: 08/08/24 Order Info: 0779-1 - MIACRE Order Info: [id number] - MIALB Performed By: #### L 300.4310, L501.9985, L500.4050, L100.0100, L300.3900, L502.0250 #### [facility] [address] [place], [place], [id number] MICROALBUMIN,UR 34.9 mg/L Normal NO RANGE EST. [facility] Comment on above: Order Comment: Order Date: 08/08/24 Order Info: [id number] - MIACRE Order Info: [id number] - MIALB Performed By: #### L 300.4310, L501.9985, L500.4050, L100.0100, L300.3900, L502.0250 #### [facility] [address] [facility] [place], [place], [id number] Monocyte percentageOrdered B y: Darryl Nam on 12-12-2024 Monocytes/100 WBC (Bld) 8.0 % 0-10 [facility] Neutrophil percentageOrdered By: Darryl Nam on 12-12-2024 Neutrophils/100 WBC (Bld) 68.0 % 47-70 [facility] Nucleated red blood cell per centageOrdered By: Darryl Nam on 12-12-2024 Nucleated RBC/100 WBC (Bld) [Ratio] 0 % 0-5 [facility] Partial Thromboplast Timeon 12-12-2024 aPTT Coag (Bld) [Time] 33.2 s Normal 24.1-36.2 [facility] Comment on above: Order Comment: Order Date: 08/08/24 Order Info: [id number] - PT Order Info: 14859-1 - PTT Performed By: #### L 300.4310, L501.9985, L500.4050, L100.0100, L300.3900, L502.0250 #### [facility] [address] [place], [place], [id number] Platelet countOrdered By: Bryn Nam on 12-12-2024 Platelets (Bld) [#/Vol] 46 10*3/uL Low 150-450 [facility] Comment on above: CRITICAL VALUE SIFUENTES D TO B. [id number]/23/25 1608 Nuha Emmanuel.RESULTS READ BACK BY SAME. Platelet estimateOrdered By: Darryl Nam on 12-12-2024 Platelets LM Ql (Bld) MKD DEC ADEQ [facility] Potassium measurement (mass/ volume)Ordered By: Darryl Nam on 12-12-2024 Potassium (Unsp spec) [Mass/Vol] 4.4 mmol/L 3.3-5.1 [facility] Comment on above: Hemolysis present, R esults could be affected. Prothrombin Time w/INRon INR Coag (PPP) [Relative time] 1.2 {INR} Normal [facility] Comment on above: Order Comment: Order Date: 08/08/24 Order Info: [id number] - PT Order Info: [id number] - PTT Performed By: #### L 300.4310, L501.9985, L500.4050, L100.0100, L300.3900, L502.0250 #### [facility] [address] [place], [place], [id number] PT Coag (PPP) [Time] 15.5 s High 11.7-14.9 [facility] Comment on above: Order Comment: Order Date: 08/08/24 Order Info: [id number] - PT Order Info: [id number] - PTT Performed By: #### L 300.4310, L501.9985, L500.4050, L100.0100, L300.3900, L502.0250 #### [facility] [address] [place], [address] Prothrombin timeOrdered By: Darryl Nam on 12-12-2024 PT Coag (PPP) [Time] 15.5 s High 11.7-14.9 [facility] RBC Auto (Bld) [#/Vol]Ordere d By: Darryl Nam on 12-12-2024 RBC (Bld) [#/Vol] 4.10 10*6/uL Low 4.2-5.4 [facility] Random urine creatinine sera urement (mass/volume)Ordered By: Darryl Nam on 12-12-2024 Creatinine Unsp time (U) [Mass/Vol] 242.00 mg/dL High 28.00-217. 00 [facility] Review by pathologistOrdered By: Darryl Nam on 12-12-2024 Pathologist review Aditya (Unsp spec) [Interp] October [facility] Serum creatinine measurement (mass/volume)Ordered By: Darryl Nam on 12-12-2024 Creatinine [Mass/Vol] 1.18 mg/dL 0.70-1.20 [facility] Serum globulin measurementOr dered By: Darryl Nam on 12-12-2024 Globulin (S) [Mass/Vol] 2.6 g/dL 2.2-4.2 [facility] Serum glucose measurement (m ass/volume)Ordered By: Darryl Nam on 12-12-2024 Glucose [Mass/Vol] 163 mg/dL High 70-99 [facility] Serum or plasma alanine ritter otransferase (ALT) measurementOrdered By: Darryl Nam on 12-12-2024 ALT [Catalytic activity/Vol] 20 U/L <35 [facility] Serum or plasma albumin sera urement (mass/volume)Ordered By: Darryl Nam on 12-12-2024 Albumin [Mass/Vol] 3.2 g/dL Low 3.4-4.8 [facility] Serum or plasma albumin/glob ulin mass ratioOrdered By: Darryl Nam on 12-12-2024 Albumin/Globulin [Mass ratio] 1.2 {ratio} 0.9-2.4 [facility] Serum or plasma alkaline kathleen sphatase measurementOrdered By: Darryl Nam on 12-12-2024 ALP [Catalytic activity/Vol] 115 U/L High 35-104 [facility] Serum or plasma calcium sera urement (mass/volume)Ordered By: Darryl Nam on 12-12-2024 Calcium [Mass/Vol] 9.1 mg/dL 7.6-11.0 [facility] Serum or plasma urea nitroge n measurement (mass/volume)Ordered By: Darryl Nam on 12-12-2024 Urea nitrogen [Mass/Vol] 12 mg/dL 4-19 [facility] Sodium levelOrdered By: Darryl Nam on 12-12-2024 Sodium [Moles/Vol] 142 mmol/L 133-145 [facility] Total proteinOrdered By: Margaret Nam on 12-12-2024 Protein [Mass/Vol] 5.8 g/dL Low 5.9-8.4 [facility] Urine albumin measurement [facility] detection limit of 20 mg/L or less (mass/volume)Ordered By: Darryl Nam on 12-12-2024 Albumin DL <= 20 mg/L (U) [Mass/Vol] 34.9 mg/L NO RANGE EST. [facility] Vitamin D,25 Hydroxyon 12-12 Vitamin D 25-OH 28.6 ng/mL Low 30-100 [facility] Comment on above: Order Comment: Order Date: 08/08/24 Order Info: [id number] - CBCD Result Comment: Sindy min D Status Deficiency: <20 ng/mL (50nmol/L) Insufficiency: 20-30 ng/mL (50-75 nmol/L) Sufficiency: 30-100 ng/mL (75-250 nmol/L) Toxicity: >100 ng/mL (>250 nmol/L) Performed By: #### L 300.4310, L501.9985, L500.4050, L100.0100, L300.3900, L502.0250 #### [facility] [address] [place], [address] White blood cell (WBC) count Ordered By: Darryl Nam on 12-12-2024 WBC (Bld) [#/Vol] 4.6 10*3/uL 4.4-11.[address] [facility] [address] FLANK WO IVCONon 08-09-19 CT FLANK WO IVCON * * *Final Report* * * DATE OF EXAM: Aug 09 2024 4:25PM [facility] 0529 - CT FLANK WO IVCON / PROCEDURE REASON: hematuria * * * * Physician Interpretation * * * * EXAMINATION: CT ABDOMEN AND PELVIS WITHOUT IV CONTRAST (Renal stone protocol) CLINICAL HISTORY: Hematuria TECHNIQUE: Non-contrast imaging of the abdomen and pelvis was performed through the urinary tract. Study performed without intravenous or oral contrast to evaluate for urinary tract calculus. MQ: [id number] Contrast: IV contrast: None Oral contrast: None CT Radiation dose: Integrated dose-length product (DLP) for this visit = mGy*cm. CT Dose Reduction Employed: Automated exposure control(AEC) and iterative recon COMPARISON: CT 08/06/2016, and others RESULT: Limitations: Unenhanced imaging is limited for the evaluation of some renal and other intra-abdominal and pelvic pathology. Urinary Tract: Right kidney and ureter: No calculus. No hydronephrosis. No finding to suggest cyst or mass in the unenhanced kidney. Left kidney and ureter: No calculus. No hydronephrosis. No finding to suggest cyst or mass in the unenhanced kidney. Bladder: No calculus. Abdomen and Pelvis: Liver: Diminutive, cirrhotic morphology. Biliary: S/p cholecystectomy. Spleen: Moderate splenomegaly Pancreas: Unremarkable. Adrenals: Normal. GI Tract: No bowel dilation. Lymph Nodes: No lymphadenopathy. Mesentery/peritoneum: No ascites. Vasculature: Prominent varices. Aorta is nonaneurysmal. Pelvis: No mass or ascites. Bones and Soft Tissues: No acute abnormality. Lower thorax: Unremarkable. Localizer images: Unremarkable. IMPRESSION: No urinary tract calculus. No hydronephrosis. Changes of advanced chronic liver disease, cirrhosis with portal hypertension. 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 Submit a new specimen if indicated. Normal [facility] Comment on above: Performed By: #### L 300.4310, L501.9985, L500.4050, L100.0100, L300.3900, L502.0250 #### [facility] [address] [place], [address] CBC W/Diff, Automatedon - Absolute Lymph 0.81 X10 3/uL Low 0.83-4.51 [facility] Comment on above: Order Comment: Order Date: 08/08/24 Order Info: 0184-1 - CBCD Performed By: #### L 300.4310, L501.9985, L500.4050, L100.0100, L300.3900, L502.0250 #### [facility] [address] [place], [address] Absolute Neut 3.1 X10 3/uL Normal 2.0-7.7 [facility] Comment on above: Order Comment: Order Date: 08/08/24 Order Info: 0184-1 - CBCD Performed By: #### L 300.4310, L501.9985, L500.4050, L100.0100, L300.3900, L502.0250 #### [facility] [address] [place], [address] Basophils/100 WBC (Bld) 0.7 % Normal 0-1 [facility] Comment on above: Order Comment: Order Date: 08/08/24 Order Info: 0184-1 - CBCD Performed By: #### L 300.4310, L501.9985, L500.4050, L100.0100, L300.3900, L502.0250 #### [facility] [address] [place], [address] Eosinophils/100 WBC (Bld) 2.0 % Normal 0-5 [facility] Comment on above: Order Comment: Order Date: 08/08/24 Order Info: 0184-1 - CBCD Performed By: #### L 300.4310, L501.9985, L500.4050, L100.0100, L300.3900, L502.0250 #### [facility] [address] [place], [address] Erythrocyte distribution width (RBC) [Ratio] 13.6 % Normal 11.6-14.6 [facility] Comment on above: Order Comment: Order Date: 08/08/24 Order Info: 0184 - CBCD Performed By: #### L 300.4310, L501.9985, L500.4050, L100.0100, L300.3900, L502.0250 #### [facility] [address] [place], [address] Hematocrit (Bld) [Volume fraction] 39.1 % Normal 37-47 [facility] Comment on above: Order Comment: Order Date: 08/08/24 Order Info: 0184- - CBCD Performed By: #### L 300.4310, L501.9985, L500.4050, L100.0100, L300.3900, L502.0250 #### [facility] [address] [place], [address] Hemoglobin (Bld) [Mass/Vol] 13.5 g/dL Normal 12.0-15.0 [facility] Comment on above: Order Comment: Order Date: 08/08/24 Order Info: 0184- - CBCD Performed By: #### L 300.4310, L501.9985, L500.4050, L100.0100, L300.3900, L502.0250 #### [facility] [address] [place], [address] IG% 0.400 Normal 0.0-0.9 [facility] Comment on above: Order Comment: Order Date: 08/08/24 Order Info: 0184-1 - CBCD Result Comment: IG% - Immature Granulocytes (promyelocytes, myelocytes and metamyelocytes) > 1% indicates that a LEFT SHIFT is Present. Performed By: #### L 300.4310, L501.9985, L500.4050, L100.0100, L300.3900, L502.0250 #### [facility] [address] [place], [address] Lymphocytes/100 WBC (Bld) 18.1 % Low 19-41 [facility] Comment on above: Order Comment: Order Date: 08/08/24 Order Info: 0184-1 - CBCD Performed By: #### L 300.4310, L501.9985, L500.4050, L100.0100, L300.3900, L502.0250 #### [facility] [address] [place], [address] MCH (RBC) [Entitic mass] 32.1 pg High 27.0-32.0 [facility] Comment on above: Order Comment: Order Date: 08/08/24 Order Info: 0184-1 - CBCD Performed By: #### L 300.4310, L501.9985, L500.4050, L100.0100, L300.3900, L502.0250 #### [facility] [address] [place], [address] MCHC (RBC) [Mass/Vol] 34.5 g/dL Normal 32-36 [facility] Comment on above: Order Comment: Order Date: 08/08/24 Order Info: 0184-1 - CBCD Performed By: #### L 300.4310, L501.9985, L500.4050, L100.0100, L300.3900, L502.0250 #### [facility] [address] [place], [address] MCV (RBC) [Entitic vol] 92.9 fL Normal 81-99 [facility] Comment on above: Order Comment: Order Date: 08/08/24 Order Info: 0184- - CBCD Performed By: #### L 300.4310, L501.9985, L500.4050, L100.0100, L300.3900, L502.0250 #### [facility] [address] [place], [address] Monocytes/100 WBC (Bld) 8.7 % Normal 0-10 [facility] Comment on above: Order Comment: Order Date: 08/08/24 Order Info: 018- - CBCD Performed By: #### L 300.4310, L501.9985, L500.4050, L100.0100, L300.3900, L502.0250 #### [facility] [address] [place], [address] Neutrophils/100 WBC (Bld) 70.1 % High 47-70 [facility] Comment on above: Order Comment: Order Date: 08/08/24 Order Info: 018- - CBCD Performed By: #### L 300.4310, L501.9985, L500.4050, L100.0100, L300.3900, L502.0250 #### [facility] [address] [place], [address] Nucleated RBC (Bld) [#/Vol] 0 10*3/uL Normal 0-5 [facility] Comment on above: Order Comment: Order Date: 08/08/24 Order Info: 0184- - CBCD Performed By: #### L 300.4310, L501.9985, L500.4050, L100.0100, L300.3900, L502.0250 #### [facility] [address] [place], [address] Platelet mean volume (Bld) [Entitic vol] 10.6 fL Normal 6.2-12.0 [facility] Comment on above: Order Comment: Order Date: 08/08/24 Order Info: 0184- - CBCD Performed By: #### L 300.4310, L501.9985, L500.4050, L100.0100, L300.3900, L502.0250 #### [facility] [address] [place], [address] Platelets (Bld) [#/Vol] 52 10*3/uL Low 150-450 [facility] Comment on above: Order Comment: Order Date: 08/08/24 Order Info: 0184-1 - CBCD Performed By: #### L 300.4310, L501.9985, L500.4050, L100.0100, L300.3900, L502.0250 #### [facility] [address] [place], [address] RBC (Bld) [#/Vol] 4.21 10*6/uL Normal 4.2-5.4 [facility] Comment on above: Order Comment: Order Date: 08/08/24 Order Info: 0184- - CBCD Performed By: #### L 300.4310, L501.9985, L500.4050, L100.0100, L300.3900, L502.0250 #### [facility] [address] [place], [address] RDW SD 45.7 fl High 35.1-43.9 [facility] Comment on above: Order Comment: Order Date: 08/08/24 Order Info: 0184-1 - CBCD Performed By: #### L 300.4310, L501.9985, L500.4050, L100.0100, L300.3900, L502.0250 #### [facility] [address] [place], [address] WBC (Bld) [#/Vol] 4.5 10*3/uL Normal 4.4-11.0 [facility] Comment on above: Order Comment: Order Date: 08/08/24 Order Info: 0184-1 - CBCD Performed By: #### L 300.4310, L501.9985, L500.4050, L100.0100, L300.3900, L502.0250 #### [facility] [address] [place], [address] CRPon 07-18-2024 C-REACTIVE PROT 12.20 mg/L High 0.0-3.0 [facility] Comment on above: Order Comment: Order Date: 08/08/24 Order Info: 0184-1 - CBCD Result Comment: C-Re active Protein (CRP) provides useful information for the diagnosis, therapy and monitoring of inflammatory processes and associated diseases. For the evaluation of Relative Risk for Cardiovascular Disease, a High Sensitivity CRP (HSCRP) should be ordered. Performed By: #### L 300.4310, L501.9985, L500.4050, L100.0100, L300.3900, L502.0250 #### [facility] [address] [place], [place], [id number] Comprehensive Metabolic Prof ilon 07-18-2024 Albumin [Mass/Vol] 2.7 g/dL Low 3.2-5.0 [facility] Comment on above: Order Comment: Order Date: 08/08/24 Order Info: 0184-1 - CBCD Performed By: #### L 300.4310, L501.9985, L500.4050, L100.0100, L300.3900, L502.0250 #### [facility] [address] [place], [place], [id number] Albumin/Globulin [Mass ratio] 0.8 {ratio} Low 0.9-2.4 [facility] Comment on above: Order Comment: Order Date: 08/08/24 Order Info: 0184-1 - CBCD Performed By: #### L 300.4310, L501.9985, L500.4050, L100.0100, L300.3900, L502.0250 #### [facility] [address] [place], [address] ALK P 132 U/L High 45-117 [facility] Comment on above: Order Comment: Order Date: 08/08/24 Order Info: 0184-1 - CBCD Performed By: #### L 300.4310, L501.9985, L500.4050, L100.0100, L300.3900, L502.0250 #### [facility] [address] [place], [address] ALT [Catalytic activity/Vol] 25 U/L Normal 13-56 [facility] Comment on above: Order Comment: Order Date: 08/08/24 Order Info: 0184-1 - CBCD Performed By: #### L 300.4310, L501.9985, L500.4050, L100.0100, L300.3900, L502.0250 #### [facility] [address] [place], [place], [id number] AST [Catalytic activity/Vol] 35 U/L Normal 15-37 [facility] Comment on above: Order Comment: Order Date: 08/08/24 Order Info: 0184-1 - CBCD Performed By: #### L 300.4310, L501.9985, L500.4050, L100.0100, L300.3900, L502.0250 #### [facility] [address] [place], [address] Bilirubin [Mass/Vol] 2.30 mg/dL High 0.20-1.00 [facility] Comment on above: Order Comment: Order Date: 08/08/24 Order Info: 0184-1 - CBCD Result Comment: For patients on eltrombopag therapy, use of Dimension [place] TBIL is not recommended. Performed By: #### L 300.4310, L501.9985, L500.4050, L100.0100, L300.3900, L502.0250 #### [facility] [address] [place], [address] BUN/CRE 12.0 RATIO Normal 10-20 [facility] Comment on above: Order Comment: Order Date: 08/08/24 Order Info: 0184-1 - CBCD Performed By: #### L 300.4310, L501.9985, L500.4050, L100.0100, L300.3900, L502.0250 #### [facility] [address] [place], [address] CA,Total 9.0 mg/dL Normal 8.5-10.1 [facility] Comment on above: Order Comment: Order Date: 08/08/24 Order Info: 0184-1 - CBCD Performed By: #### L 300.4310, L501.9985, L500.4050, L100.0100, L300.3900, L502.0250 #### [facility] [address] [place], [address] Chloride [Moles/Vol] 110 mmol/L High 98-107 [facility] Comment on above: Order Comment: Order Date: 08/08/24 Order Info: 0184-1 - CBCD Performed By: #### L 300.4310, L501.9985, L500.4050, L100.0100, L300.3900, L502.0250 #### [facility] [address] [place], [address] CO2 [Moles/Vol] 23.0 mmol/L Normal 21.0-32.0 [facility] Comment on above: Order Comment: Order Date: 08/08/24 Order Info: 0184-1 - CBCD Performed By: #### L 300.4310, L501.9985, L500.4050, L100.0100, L300.3900, L502.0250 #### [facility] [address] [place], [address] Creatinine [Mass/Vol] 1.25 mg/dL High 0.55-1.02 [facility] Comment on above: Order Comment: Order Date: 08/08/24 Order Info: 0184-1 - CBCD Result Comment: The validity of the calculated GFR GFRAA in patients over 70 years has not been determined. Clinical correlation is essential. Performed By: #### L 300.4310, L501.9985, L500.4050, L100.0100, L300.3900, L502.0250 #### [facility] [address] [place], [address] EST GFR - AA 56 mL/min Low >60 [facility] Comment on above: Order Comment: Order Date: 08/08/24 Order Info: 0184- - CBCD Result Comment: Afri can [place] GFR Calc Performed By: #### L 300.4310, L501.9985, L500.4050, L100.0100, L300.3900, L502.0250 #### [facility] [address] [place], [place], [id number] GAP 7 Normal 5-15 [facility] Comment on above: Order Comment: Order Date: 08/08/24 Order Info: 0184- - CBCD Performed By: #### L 300.4310, L501.9985, L500.4050, L100.0100, L300.3900, L502.0250 #### [facility] [address] [place], [place], [id number] GFR/1.73 sq M.predicted among non-blacks MDRD (S/P/Bld) [Vol rate/Area] 46 mL/min/{1.73_m2} Low >60 [facility] Comment on above: Order Comment: Order Date: 08/08/24 Order Info: 0184- - CBCD Result Comment: Non- GFR Calc Performed By: #### L 300.4310, L501.9985, L500.4050, L100.0100, L300.3900, L502.0250 #### [facility] [address] [place], [place], [id number] [phone] Globulin (S) [Mass/Vol] 3.5 g/dL Normal 2.2-4.2 [facility] Comment on above: Order Comment: Order Date: 08/08/24 Order Info: 0184-1 - CBCD Performed By: #### L 300.4310, L501.9985, L500.4050, L100.0100, L300.3900, L502.0250 #### [facility] [address] [place], [address] Glucose [Mass/Vol] 269 mg/dL High 74-106 [facility] Comment on above: Order Comment: Order Date: 08/08/24 Order Info: 0184- - CBCD Result Comment: Gluc ose result greater than or equal to 200 mg/dL suggests DIABETES MELLITUS per A.D.A. criteria. Performed By: #### L 300.4310, L501.9985, L500.4050, L100.0100, L300.3900, L502.0250 #### [facility] [address] [place], [address] Potassium [Moles/Vol] 3.9 mmol/L Normal 3.5-5.1 [facility] Comment on above: Order Comment: Order Date: 08/08/24 Order Info: 0184-1 - CBCD Performed By: #### L 300.4310, L501.9985, L500.4050, L100.0100, L300.3900, L502.0250 #### [facility] [address] [place], [address] Sodium [Moles/Vol] 140 mmol/L Normal 136-145 [facility] Comment on above: Order Comment: Order Date: 08/08/24 Order Info: 0184-1 - CBCD Performed By: #### L 300.4310, L501.9985, L500.4050, L100.0100, L300.3900, L502.0250 #### [facility] [address] [place], [place], [id number] T PROT 6.2 g/dL Low 6.4-8.2 [facility] Comment on above: Order Comment: Order Date: 08/08/24 Order Info: 0184-1 - CBCD Performed By: #### L 300.4310, L501.9985, L500.4050, L100.0100, L300.3900, L502.0250 #### [facility] [address] [place], [place], [address] Urea nitrogen [Mass/Vol] 15 mg/dL Normal 7-18 [facility] Comment on above: Order Comment: Order Date: 08/08/24 Order Info: 0184-1 - CBCD Performed By: #### L 300.4310, L501.9985, L500.4050, L100.0100, L300.3900, L502.0250 #### [facility] [address] [place], [place], [address] Erythrocyte Sed Rateon 07-18 SED RATE 5 mm/hr Normal 0-30 [facility] Comment on above: Order Comment: Order Date: 08/08/24 Order Info: 0184-1 - CBCD Performed By: #### L 300.4310, L501.9985, L500.4050, L100.0100, L300.3900, L502.0250 #### [facility] [address] [place], [place], [address] CBC W/Diff, Automatedon 05-22 Absolute Lymph 1.19 X10 3/uL Normal 0.83-4.51 [facility] Comment on above: Order Comment: Order Date: 06/08/24 Order Info: 0184-1 - CBCD Performed By: #### L 500.4050, L100.0100 #### [facility] [address] [place], [place], [address] Absolute Neut 7.4 X10 3/uL Normal 2.0-7.7 [facility] Comment on above: Order Comment: Order Date: 06/08/24 Order Info: 0184-1 - CBCD Performed By: #### L 500.4050, L100.0100 #### [facility] [address] [place], [address] Basophils/100 WBC (Bld) 0.3 % Normal 0-1 [facility] Comment on above: Order Comment: Order Date: 06/08/24 Order Info: 0184-1 - CBCD Performed By: #### L 500.4050, L100.0100 #### [facility] [address] [place], [address] Eosinophils/100 WBC (Bld) 0.5 % Normal 0-5 [facility] Comment on above: Order Comment: Order Date: 06/08/24 Order Info: 0184-1 - CBCD Performed By: #### L 500.4050, L100.0100 #### [facility] [address] [place], [address] Erythrocyte distribution width (RBC) [Ratio] 13.7 % Normal 11.6-14.6 [facility] Comment on above: Order Comment: Order Date: 06/08/24 Order Info: 0184-1 - CBCD Performed By: #### L 500.4050, L100.0100 #### [facility] [address] [place], [address] Hematocrit (Bld) [Volume fraction] 42.9 % Normal 37-47 [facility] Comment on above: Order Comment: Order Date: 06/08/24 Order Info: 0184-1 - CBCD Performed By: #### L 500.4050, L100.0100 #### [facility] [address] [place], [address] Hemoglobin (Bld) [Mass/Vol] 14.3 g/dL Normal 12.0-15.0 [facility] Comment on above: Order Comment: Order Date: 06/08/24 Order Info: 0184-1 - CBCD Performed By: #### L 500.4050, L100.0100 #### [facility] [address] [place], [address] IG% 1.900 High 0.0-0.9 [facility] Comment on above: Order Comment: Order Date: 06/08/24 Order Info: 018- - CBCD Result Comment: IG% - Immature Granulocytes (promyelocytes, myelocytes and metamyelocytes) > 1% indicates that a LEFT SHIFT is Present. Performed By: #### L 500.4050, L100.0100 #### [facility] [address] [place], [address] Lymphocytes/100 WBC (Bld) 12.4 % Low 19-41 [facility] Comment on above: Order Comment: Order Date: 06/08/24 Order Info: 018- - CBCD Performed By: #### L 500.4050, L100.0100 #### [facility] [address] [place], [address] MCH (RBC) [Entitic mass] 31.0 pg Normal 27.0-32.0 [facility] Comment on above: Order Comment: Order Date: 06/08/24 Order Info: 0184- - CBCD Performed By: #### L 500.4050, L100.0100 #### [facility] [address] [place], [address] MCHC (RBC) [Mass/Vol] 33.3 g/dL Normal 32-36 [facility] Comment on above: Order Comment: Order Date: 06/08/24 Order Info: 0184- - CBCD Performed By: #### L 500.4050, L100.0100 #### [facility] [address] [place], [address] MCV (RBC) [Entitic vol] 93.1 fL Normal 81-99 [facility] Comment on above: Order Comment: Order Date: 06/08/24 Order Info: 0184-1 - CBCD Performed By: #### L 500.4050, L100.0100 #### [facility] [address] [place], [address] Monocytes/100 WBC (Bld) 7.6 % Normal 0-10 [facility] Comment on above: Order Comment: Order Date: 06/08/24 Order Info: 0184-1 - CBCD Performed By: #### L 500.4050, L100.0100 #### [facility] [address] [place], [address] Neutrophils/100 WBC (Bld) 77.3 % High 47-70 [facility] Comment on above: Order Comment: Order Date: 06/08/24 Order Info: 0184-1 - CBCD Performed By: #### L 500.4050, L100.0100 #### [facility] [address] [place], [address] Nucleated RBC (Bld) [#/Vol] 0 10*3/uL Normal 0-5 [facility] Comment on above: Order Comment: Order Date: 06/08/24 Order Info: 0184-1 - CBCD Performed By: #### L 500.4050, L100.0100 #### [facility] [address] [place], [address] Platelet mean volume (Bld) [Entitic vol] 10.1 fL Normal 6.2-12.0 [facility] Comment on above: Order Comment: Order Date: 06/08/24 Order Info: 0184-1 - CBCD Performed By: #### L 500.4050, L100.0100 #### [facility] [address] [place], [address] Platelets (Bld) [#/Vol] 65 10*3/uL Low 150-450 [facility] Comment on above: Order Comment: Order Date: 06/08/24 Order Info: 0184-1 - CBCD Performed By: #### L 500.4050, L100.0100 #### [facility] [address] [place], [address] RBC (Bld) [#/Vol] 4.61 10*6/uL Normal 4.2-5.4 [facility] Comment on above: Order Comment: Order Date: 06/08/24 Order Info: 0184-1 - CBCD Performed By: #### L 500.4050, L100.0100 #### [facility] [address] [place], [address] RDW SD 46.2 fl High 35.1-43.9 [facility] Comment on above: Order Comment: Order Date: 06/08/24 Order Info: 0184-1 - CBCD Performed By: #### L 500.4050, L100.0100 #### [facility] [address] [place], [address] WBC (Bld) [#/Vol] 9.6 10*3/uL Normal 4.4-11.0 [facility] Comment on above: Order Comment: Order Date: 06/08/24 Order Info: 0184- - CBCD Performed By: #### L 500.4050, L100.0100 #### [facility] [address] [place], [address] Comprehensive Metabolic Prof ilon 06-08-2024 Albumin [Mass/Vol] 2.6 g/dL Low 3.2-5.0 [facility] Comment on above: Order Comment: Order Date: 06/08/24 Order Info: 0786-1 - CMP Performed By: #### L 500.4050, L100.0100 #### [facility] [address] [place], [address] Albumin/Globulin [Mass ratio] 0.7 {ratio} Low 0.9-2.4 [facility] Comment on above: Order Comment: Order Date: 06/08/24 Order Info: 0786-1 - CMP Performed By: #### L 500.4050, L100.0100 #### [facility] [address] [place], [address] ALK P 119 U/L High 45-117 [facility] Comment on above: Order Comment: Order Date: 06/08/24 Order Info: 0786-1 - CMP Performed By: #### L 500.4050, L100.0100 #### [facility] [address] [place], [address] ALT [Catalytic activity/Vol] 20 U/L Normal 13-56 [facility] Comment on above: Order Comment: Order Date: 06/08/24 Order Info: 0786-1 - CMP Performed By: #### L 500.4050, L100.0100 #### [facility] [address] [place], [address] AST [Catalytic activity/Vol] 24 U/L Normal 15-37 [facility] Comment on above: Order Comment: Order Date: 06/08/24 Order Info: 0786-1 - CMP Performed By: #### L 500.4050, L100.0100 #### [facility] [address] [place], [address] Bilirubin [Mass/Vol] 3.10 mg/dL High 0.20-1.00 [facility] Comment on above: Order Comment: Order Date: 06/08/24 Order Info: 0786-1 - CMP Result Comment: For patients on eltrombopag therapy, use of Dimension [place] TBIL is not recommended. Performed By: #### L 500.4050, L100.0100 #### [facility] [address] [place], [address] BUN/CRE 12.9 RATIO Normal 10-20 [facility] Comment on above: Order Comment: Order Date: 06/08/24 Order Info: 0786-1 - CMP Performed By: #### L 500.4050, L100.0100 #### [facility] [address] [place], [address] CA,Total 8.9 mg/dL Normal 8.5-10.1 [facility] Comment on above: Order Comment: Order Date: 06/08/24 Order Info: 0786-1 - CMP Performed By: #### L 500.4050, L100.0100 #### [facility] [address] [place], [address] Chloride [Moles/Vol] 108 mmol/L High 98-107 [facility] Comment on above: Order Comment: Order Date: 06/08/24 Order Info: 07-1 - CMP Performed By: #### L 500.4050, L100.0100 #### [facility] [address] [place], [address] CO2 [Moles/Vol] 27.0 mmol/L Normal 21.0-32.0 [facility] Comment on above: Order Comment: Order Date: 06/08/24 Order Info: 0786-1 - CMP Performed By: #### L 500.4050, L100.0100 #### [facility] [address] [place], [address] Creatinine [Mass/Vol] 1.16 mg/dL High 0.55-1.02 [facility] Comment on above: Order Comment: Order Date: 06/08/24 Order Info: 0786-1 - CMP Result Comment: The validity of the calculated GFR GFRAA in patients over 70 years has not been determined. Clinical correlation is essential. Performed By: #### L 500.4050, L100.0100 #### [facility] [address] [place], [address] EST GFR - AA 61 mL/min Normal >60 [facility] Comment on above: Order Comment: Order Date: 06/08/24 Order Info: 0786-1 - CMP Result Comment: Afri can [place] GFR Calc Performed By: #### L 500.4050, L100.0100 #### [facility] [address] [place], [address] GAP 5 Normal 5-15 [facility] Comment on above: Order Comment: Order Date: 06/08/24 Order Info: 0786-1 - CMP Performed By: #### L 500.4050, L100.0100 #### [facility] [address] [place], [address] GFR/1.73 sq M.predicted among non-blacks MDRD (S/P/Bld) [Vol rate/Area] 50 mL/min/{1.73_m2} Low >60 [facility] Comment on above: Order Comment: Order Date: 06/08/24 Order Info: 0786-1 - CMP Result Comment: Non- GFR Calc Performed By: #### L 500.4050, L100.0100 #### [facility] [address] [place], [address] Globulin (S) [Mass/Vol] 3.6 g/dL Normal 2.2-4.2 [facility] Comment on above: Order Comment: Order Date: 06/08/24 Order Info: 0786-1 - CMP Performed By: #### L 500.4050, L100.0100 #### [facility] [address] [place], [address] Glucose [Mass/Vol] 216 mg/dL High 74-106 [facility] Comment on above: Order Comment: Order Date: 06/08/24 Order Info: 0786-1 - CMP Result Comment: Gluc ose result greater than or equal to 200 mg/dL suggests DIABETES MELLITUS per A.D.A. criteria. Performed By: #### L 500.4050, L100.0100 #### [facility] [address] [place], [address] Potassium [Moles/Vol] 3.8 mmol/L Normal 3.5-5.1 [facility] Comment on above: Order Comment: Order Date: 06/08/24 Order Info: 0786-1 - CMP Performed By: #### L 500.4050, L100.0100 #### [facility] [address] [place], [address] Sodium [Moles/Vol] 140 mmol/L Normal 136-145 [facility] Comment on above: Order Comment: Order Date: 06/08/24 Order Info: 0786-1 - CMP Performed By: #### L 500.4050, L100.0100 #### [facility] [address] [place], [address] T PROT 6.2 g/dL Low 6.4-8.2 [facility] Comment on above: Order Comment: Order Date: 06/08/24 Order Info: 0786- - CMP Performed By: #### L 500.4050, L100.0100 #### [facility] [address] [place], [address] Urea nitrogen [Mass/Vol] 15 mg/dL Normal 7-18 [facility] Comment on above: Order Comment: Order Date: 06/08/24 Order Info: 0786-1 - CMP Performed By: #### L 500.4050, L100.0100 #### [facility] [address] [place], [address] Adrenocorticotropic Hormoneo n 05-17-2024 ACTH 12.0 pg/mL Normal 7.2-63.3 [facility] Comment on above: Order Comment: Order Date: 08/08/24 Order Info: 6301-6 - PT Order Info: 01357-4 - PTT Result Comment: ACTH reference interval for samples collected between 7 and 10 AM. Performed By: #### L 300.4310, L501.9985, L500.4050, L100.0100, L300.3900, L502.0250 #### [facility] [address] [place], [address] Fructosamineon 05-17-2024 FRUCTOSAMINE 365 umol/L High 0-285 [facility] Comment on above: Order Comment: Order Date: 08/08/24 Order Info: 6301-6 - PT Order Info: 72629-9 - PTT Result Comment: Publ ished reference interval for apparently healthy subjects between age 20 and 60 is 205 - 285 umol/L and in a poorly controlled diabetic population is 228 - 563 umol/L with a mean of 396 umol/L. Performed at: [address] [id number] [employer] Traffic Controller: Jeronimo Fontenot PhD, Phone: [phone] Performed By: #### L 300.4310, L501.9985, L500.4050, L100.0100, L300.3900, L502.0250 #### [facility] [address] [place], [place], [phone] Protein Electroph, Son 05-17 Albumin [Mass/Vol] 2.8 g/dL Low 2.9-4.4 [facility] Comment on above: Order Comment: Order Date: 08/08/24 Order Info: 6301-6 - PT Order Info: 14158-9 - PTT Performed By: #### L 300.4310, L501.9985, L500.4050, L100.0100, L300.3900, L502.0250 #### [facility] [address] [place], [place], [phone] Albumin/Globulin [Mass ratio] 0.9 {ratio} Normal 0.7-1.7 [facility] Comment on above: Order Comment: Order Date: 08/08/24 Order Info: 6301-6 - PT Order Info: 39384-7 - PTT Performed By: #### L 300.4310, L501.9985, L500.4050, L100.0100, L300.3900, L502.0250 #### [facility] [address] [place], [address] ALPHA-1 GLOBUL 0.3 g/dL Normal 0.0-0.4 [facility] Comment on above: Order Comment: Order Date: 08/08/24 Order Info: 6301-6 - PT Order Info: 14416-3 - PTT Performed By: #### L 300.4310, L501.9985, L500.4050, L100.0100, L300.3900, L502.0250 #### [facility] [address] [place], [address] ALPHA-2 GLOBUL 0.5 g/dL Normal 0.4-1.0 [facility] Comment on above: Order Comment: Order Date: 08/08/24 Order Info: 630-6 - PT Order Info: 76986-0 - PTT Performed By: #### L 300.4310, L501.9985, L500.4050, L100.0100, L300.3900, L502.0250 #### [facility] [address] [place], [place], [phone] BETA GLOBULIN 1.0 g/dL Normal 0.7-1.3 [facility] Comment on above: Order Comment: Order Date: 08/08/24 Order Info: 6301-6 - PT Order Info: [id number] - PTT Performed By: #### L 300.4310, L501.9985, L500.4050, L100.0100, L300.3900, L502.0250 #### [facility] [address] [place], [address] GAMMA GLOBULIN 1.2 g/dL Normal 0.4-1.8 [facility] Comment on above: Order Comment: Order Date: 08/08/24 Order Info: 6301-6 - PT Order Info: [id number] - PTT Performed By: #### L 300.4310, L501.9985, L500.4050, L100.0100, L300.3900, L502.0250 #### [facility] [address] [place], [place], [id number] Globulin (S) [Mass/Vol] 3.0 g/dL Normal 2.2-3.9 [facility] Comment on above: Order Comment: Order Date: 08/08/24 Order Info: 63006-27 - PT Order Info: 70417-4 - PTT Performed By: #### L 300.4310, L501.9985, L500.4050, L100.0100, L300.3900, L502.0250 #### [facility] [address] [place], [place], [phone] INTERPRETATION Comment Normal . [facility] Comment on above: Order Comment: Order Date: 08/08/24 Order Info: 63006-27 - PT Order Info: 73131-3 - PTT Result Comment: Prot ein electrophoresis scan will follow via computer, mail, or zinc miner delivery. Performed By: #### L 300.4310, L501.9985, L500.4050, L100.0100, L300.3900, L502.0250 #### [facility] [address] [place], [place], [phone] M-SPIKE Not Observed Normal Not Observed [facility] Comment on above: Order Comment: Order Date: 08/08/24 Order Info: 630- - PT Order Info: 54495-5 - PTT Performed By: #### L 300.4310, L501.9985, L500.4050, L100.0100, L300.3900, L502.0250 #### [facility] [address] [place], [place], [id number] NOTE: Comment: Normal . [facility] Comment on above: Order Comment: Order Date: 08/08/24 Order Info: 63006-27 - PT Order Info: 76578-7 - PTT Result Comment: SPE shows decreased albumin and total protein. Performed By: #### L 300.4310, L501.9985, L500.4050, L100.0100, L300.3900, L502.0250 #### [facility] [address] [place], [place], [phone] Protein [Mass/Vol] 5.8 g/dL Low 6.0-8.5 [facility] Comment on above: Order Comment: Order Date: 08/08/24 Order Info: 630-6 - PT Order Info: [id number] - PTT Performed By: #### L 300.4310, L501.9985, L500.4050, L100.0100, L300.3900, L502.0250 #### [facility] [address] [place], [place], [phone] Quantiferon TB-Gold+on 05-17 QFT MITOGEN CINDY > 10.00 Normal . [facility] Comment on above: Order Comment: Order Date: 08/08/24 Order Info: 630-6 - PT Order Info: 73834-8 - PTT Performed By: #### L 300.4310, L501.9985, L500.4050, L100.0100, L300.3900, L502.0250 #### [facility] [address] [place], [place], [id number] QFT NIL VALUE 0 IU/mL Normal . [facility] Comment on above: Order Comment: Order Date: 08/08/24 Order Info: 630-6 - PT Order Info: 07825-9 - PTT Performed By: #### L 300.4310, L501.9985, L500.4050, L100.0100, L300.3900, L502.0250 #### [facility] [address] [place], [place], [id number] QFT TB GOLD+ Comment Normal . [facility] Comment on above: Order Comment: Order Date: 08/08/24 Order Info: 630-6 - PT Order Info: 61519-8 - PTT Result Comment: Hardik tiFERON-TB Gold Plus is a qualitative indirect test for M tuberculosis infection (including disease) and is intended for use in conjunction with risk assessment, radiography, and other medical and diagnostic evaluations. The QuantiFERON-TB Gold Plus result is determined by subtracting the Nil value from either TB antigen (Ag) value. The Mitogen tube serves as a control for the test. Performed By: #### L 300.4310, L501.9985, L500.4050, L100.0100, L300.3900, L502.0250 #### [facility] [address] [place], [place], [id number] QFT TB POS CRIT Negative Normal Negative [facility] Comment on above: Order Comment: Order Date: 08/08/24 Order Info: 6301-6 - PT Order Info: [id number] - PTT Result Comment: No r esponse to M tuberculosis antigens detected. Infection with M tuberculosis is unlikely, but high risk individuals should be considered for additional testing (ATS/IDSA/CDC Clinical Practice Guidelines, 2017). The reference range is an Antigen minus Nil result of <0.35 IU/mL. The specimen received for QuantiFERON testing was incubated by the ordering institution. Specific procedures outlined in our Directory of Services and in the package insert for the QuantiFERON Gold (In Tube) test must be followed to enable for proper stimulation of cells for the production of interferon gamma. Chemiluminescence immunoassay methodology Performed By: #### L 300.4310, L501.9985, L500.4050, L100.0100, L300.3900, L502.0250 #### [facility] [address] [place], [place], [phone]) QFT TB1+ AG CINDY 0 IU/mL Normal . [facility] Comment on above: Order Comment: Order Date: 08/08/24 Order Info: 6301-6 - PT Order Info: 43285-7 - PTT Performed By: #### L 300.4310, L501.9985, L500.4050, L100.0100, L300.3900, L502.0250 #### [facility] [address] [place], [address] QFT TB2+ AG CINDY 0.03 IU/mL Normal . [facility] Comment on above: Order Comment: Order Date: 08/08/24 Order Info: 6301-6 - PT Order Info: [id number] - PTT Performed By: #### L 300.4310, L501.9985, L500.4050, L100.0100, L300.3900, L502.0250 #### [facility] [address] [place], [place], [address] ANTINUCLEAR ANTIBODIES DIREC Ton 05-16-2024 BREANNE,DIRECT Negative Normal Negative [facility] Comment on above: Result Comment: Perf ormed at: [facility] [id number] [employer] Traffic Controller: Jeronimo Fontenot PhD, Phone: [phone] Performed By: #### L 300.4310, L501.9985, L500.4050, L100.0100, L300.3900, L502.0250 #### [facility] [address] [place], [place], [id number] CORTISOL SERUMon 05-13-2024 CORTISOL 12.10 ug/dL Normal 3.44-22.45 [facility] Comment on above: Result Comment: Adul t (AM) 5.27 - 22.45 ug/dL Adult (PM) 3.44 - 16.76 ug/dL Performed By: #### L 300.4310, L501.9985, L500.4050, L100.0100, L300.3900, L502.0250 #### [facility] [address] [place], [place], [address] CRPon 05-13-2024 C-REACTIVE PROT 10.40 mg/L High 0.0-3.0 [facility] Comment on above: Result Comment: C-Re active Protein (CRP) provides useful information for the diagnosis, therapy and monitoring of inflammatory processes and associated diseases. For the evaluation of Relative Risk for Cardiovascular Disease, a High Sensitivity CRP (HSCRP) should be ordered. Performed By: #### L 300.4310, L501.9985, L500.4050, L100.0100, L300.3900, L502.0250 #### [facility] [address] [place], [address] Comprehensive Metabolic Prof ilon 05-13-2024 Albumin [Mass/Vol] 2.7 g/dL Low 3.2-5.0 [facility] Comment on above: Performed By: #### L 300.4310, L501.9985, L500.4050, L100.0100, L300.3900, L502.0250 #### [facility] [address] [place], [address] Albumin/Globulin [Mass ratio] 0.8 {ratio} Low 0.9-2.4 [facility] Comment on above: Performed By: #### L 300.4310, L501.9985, L500.4050, L100.0100, L300.3900, L502.0250 #### [facility] [address] [place], [address] ALK P 128 U/L High 45-117 [facility] Comment on above: Performed By: #### L 300.4310, L501.9985, L500.4050, L100.0100, L300.3900, L502.0250 #### [facility] [address] [place], [address] ALT [Catalytic activity/Vol] 24 U/L Normal 13-56 [facility] Comment on above: Performed By: #### L 300.4310, L501.9985, L500.4050, L100.0100, L300.3900, L502.0250 #### [facility] [address] [place], [address] AST [Catalytic activity/Vol] 38 U/L High 15-37 [facility] Comment on above: Performed By: #### L 300.4310, L501.9985, L500.4050, L100.0100, L300.3900, L502.0250 #### [facility] [address] [place], [address] Bilirubin [Mass/Vol] 1.30 mg/dL High 0.20-1.00 [facility] Comment on above: Result Comment: For patients on eltrombopag therapy, use of Dimension [place] TBIL is not recommended. Performed By: #### L 300.4310, L501.9985, L500.4050, L100.0100, L300.3900, L502.0250 #### [facility] [address] [place], [address] BUN/CRE 9.0 RATIO Low 10-20 [facility] Comment on above: Performed By: #### L 300.4310, L501.9985, L500.4050, L100.0100, L300.3900, L502.0250 #### [facility] [address] [place], [address] CA,Total 8.7 mg/dL Normal 8.5-10.1 [facility] Comment on above: Performed By: #### L 300.4310, L501.9985, L500.4050, L100.0100, L300.3900, L502.0250 #### [facility] [address] [place], [address] Chloride [Moles/Vol] 110 mmol/L High 98-107 [facility] Comment on above: Performed By: #### L 300.4310, L501.9985, L500.4050, L100.0100, L300.3900, L502.0250 #### [facility] [address] [place], [address] CO2 [Moles/Vol] 26.0 mmol/L Normal 21.0-32.0 [facility] Comment on above: Performed By: #### L 300.4310, L501.9985, L500.4050, L100.0100, L300.3900, L502.0250 #### [facility] [address] [place], [address] Creatinine [Mass/Vol] 1.11 mg/dL High 0.55-1.02 [facility] Comment on above: Result Comment: The validity of the calculated GFR GFRAA in patients over 70 years has not been determined. Clinical correlation is essential. Performed By: #### L 300.4310, L501.9985, L500.4050, L100.0100, L300.3900, L502.0250 #### [facility] [address] [place], [place], [phone] (890) EST GFR - AA 64 mL/min Normal >60 [facility] Comment on above: Result Comment: Afri can [place] GFR Calc Performed By: #### L 300.4310, L501.9985, L500.4050, L100.0100, L300.3900, L502.0250 #### [facility] [address] [place], [address] GAP 6 Normal 5-15 [facility] Comment on above: Performed By: #### L 300.4310, L501.9985, L500.4050, L100.0100, L300.3900, L502.0250 #### [facility] [address] [place], [address] GFR/1.73 sq M.predicted among non-blacks MDRD (S/P/Bld) [Vol rate/Area] 53 mL/min/{1.73_m2} Low >60 [facility] Comment on above: Result Comment: Non- GFR Calc Performed By: #### L 300.4310, L501.9985, L500.4050, L100.0100, L300.3900, L502.0250 #### [facility] [address] [place], [address] Globulin (S) [Mass/Vol] 3.6 g/dL Normal 2.2-4.2 [facility] Comment on above: Performed By: #### L 300.4310, L501.9985, L500.4050, L100.0100, L300.3900, L502.0250 #### [facility] [address] [place], [address] Glucose [Mass/Vol] 233 mg/dL High 74-106 [facility] Comment on above: Result Comment: Gluc ose result greater than or equal to 200 mg/dL suggests DIABETES MELLITUS per A.D.A. criteria. Performed By: #### L 300.4310, L501.9985, L500.4050, L100.0100, L300.3900, L502.0250 #### [facility] [address] [place], [address] Potassium [Moles/Vol] 3.9 mmol/L Normal 3.5-5.1 [facility] Comment on above: Performed By: #### L 300.4310, L501.9985, L500.4050, L100.0100, L300.3900, L502.0250 #### [facility] [address] [place], [address] Sodium [Moles/Vol] 142 mmol/L Normal 136-145 [facility] Comment on above: Performed By: #### L 300.4310, L501.9985, L500.4050, L100.0100, L300.3900, L502.0250 #### [facility] [address] [place], [address] T PROT 6.3 g/dL Low 6.4-8.2 [facility] Comment on above: Performed By: #### L 300.4310, L501.9985, L500.4050, L100.0100, L300.3900, L502.0250 #### [facility] [address] [place], [place], [id number] Urea nitrogen [Mass/Vol] 10 mg/dL Normal 7-18 [facility] Comment on above: Performed By: #### L 300.4310, L501.9985, L500.4050, L100.0100, L300.3900, L502.0250 #### [facility] [address] [place], [address] Erythrocyte Sed Rateon 05-13 SED RATE 4 mm/hr Normal 0-30 [facility] Comment on above: Performed By: #### L 3300.1000, L501.9520, L101.9900, L500.4050, L502.0250, L509.6000, L3100.5475, L3400.0100, L501.6710, L509.1000, L3400.8000, L3100.3450 #### [facility] [address] [place], [place], [address] Microalb:Creat Ratio,Random URon 05-13-2024 Creatinine [Mass/Vol] 136.00 mg/dL Normal NO RAN GE EST. [facility] Comment on above: Performed By: #### L 3300.1000, L501.9520, L101.9900, L500.4050, L502.0250, L509.6000, L3100.5475, L3400.0100, L501.6710, L509.1000, L3400.8000, L3100.3450 #### [facility] [address] [place], [address] MALB:CRE 15.4 mg/g CRE Normal <30 mg/g CRE [facility] Comment on above: Performed By: #### L 3300.1000, L501.9520, L101.9900, L500.4050, L502.0250, L509.6000, L3100.5475, L3400.0100, L501.6710, L509.1000, L3400.8000, L3100.3450 #### [facility] [address] [place], [address] MICROALBUMIN,UR 20.9 mg/L Normal NO RANGE EST. [facility] Comment on above: Performed By: #### L 3300.1000, L501.9520, L101.9900, L500.4050, L502.0250, L509.6000, L3100.5475, L3400.0100, L501.6710, L509.1000, L3400.8000, L3100.3450 #### [facility] [address] [place], [address] PTHINon 05-13-2024 PTH 22.5 pg/mL Normal 18.4-80.1 [facility] Comment on above: Performed By: #### L 300.4310, L501.9985, L500.4050, L100.0100, L300.3900, L502.0250 #### [facility] [address] [place], [address] Thyroid Stim Hormone (TSH)on 05-13-2024 TSH 2.370 uIU/mL Normal 0.358-3.74 0 [facility] Comment on above: Performed By: #### L 300.4310, L501.9985, L500.4050, L100.0100, L300.3900, L502.0250 #### [facility] [address] [place], [address] CBC W/Diff, Automatedon 09-2 Absolute Lymph 0.88 X10 3/uL Normal 0.83-4.51 [facility] Comment on above: Order Comment: Order Date: 08/08/24 Order Info: 0184-1 - CBCD Performed By: #### L 300.4310, L501.9985, L500.4050, L100.0100, L300.3900, L502.0250 #### [facility] [address] [place], [address] Absolute Neut 4.2 X10 3/uL Normal 2.0-7.7 [facility] Comment on above: Order Comment: Order Date: 08/08/24 Order Info: 0184-1 - CBCD Performed By: #### L 300.4310, L501.9985, L500.4050, L100.0100, L300.3900, L502.0250 #### [facility] [address] [place], [place], [phone] (009) Basophils/100 WBC (Bld) 0.5 % Normal 0-1 [facility] Comment on above: Order Comment: Order Date: 08/08/24 Order Info: 0184-1 - CBCD Performed By: #### L 300.4310, L501.9985, L500.4050, L100.0100, L300.3900, L502.0250 #### [facility] [address] [place], [place], [phone] (722) Eosinophils/100 WBC (Bld) 2.1 % Normal 0-5 [facility] Comment on above: Order Comment: Order Date: 08/08/24 Order Info: 0184-1 - CBCD Performed By: #### L 300.4310, L501.9985, L500.4050, L100.0100, L300.3900, L502.0250 #### [facility] [address] [place], [place], [phone] (399) Erythrocyte distribution width (RBC) [Ratio] 13.4 % Normal 11.6-14.6 [facility] Comment on above: Order Comment: Order Date: 08/08/24 Order Info: 0184-1 - CBCD Performed By: #### L 300.4310, L501.9985, L500.4050, L100.0100, L300.3900, L502.0250 #### [facility] [address] [place], [place], [phone] (776) Hematocrit (Bld) [Volume fraction] 40.9 % Normal 37-47 [facility] Comment on above: Order Comment: Order Date: 08/08/24 Order Info: 0184-1 - CBCD Performed By: #### L 300.4310, L501.9985, L500.4050, L100.0100, L300.3900, L502.0250 #### [facility] [address] [place], [address] Hemoglobin (Bld) [Mass/Vol] 13.5 g/dL Normal 12.0-15.0 [facility] Comment on above: Order Comment: Order Date: 08/08/24 Order Info: 0184-1 - CBCD Performed By: #### L 300.4310, L501.9985, L500.4050, L100.0100, L300.3900, L502.0250 #### [facility] [address] [place], [address] (575) IG% 0.400 Normal 0.0-0.9 [facility] Comment on above: Order Comment: Order Date: 08/08/24 Order Info: 0184-1 - CBCD Result Comment: IG% - Immature Granulocytes (promyelocytes, myelocytes and metamyelocytes) > 1% indicates that a LEFT SHIFT is Present. Performed By: #### L 300.4310, L501.9985, L500.4050, L100.0100, L300.3900, L502.0250 #### [facility] [address] [place], [address] Lymphocytes/100 WBC (Bld) 15.7 % Low 19-41 [facility] Comment on above: Order Comment: Order Date: 08/08/24 Order Info: 0184-1 - CBCD Performed By: #### L 300.4310, L501.9985, L500.4050, L100.0100, L300.3900, L502.0250 #### [facility] [address] [place], [address] MCH (RBC) [Entitic mass] 31.0 pg Normal 27.0-32.0 [facility] Comment on above: Order Comment: Order Date: 08/08/24 Order Info: 0184-1 - CBCD Performed By: #### L 300.4310, L501.9985, L500.4050, L100.0100, L300.3900, L502.0250 #### [facility] [address] [place], [address] MCHC (RBC) [Mass/Vol] 33.0 g/dL Normal 32-36 [facility] Comment on above: Order Comment: Order Date: 08/08/24 Order Info: 0184-1 - CBCD Performed By: #### L 300.4310, L501.9985, L500.4050, L100.0100, L300.3900, L502.0250 #### [facility] [address] [place], [address] MCV (RBC) [Entitic vol] 93.8 fL Normal 81-99 [facility] Comment on above: Order Comment: Order Date: 08/08/24 Order Info: 0184-1 - CBCD Performed By: #### L 300.4310, L501.9985, L500.4050, L100.0100, L300.3900, L502.0250 #### [facility] [address] [place], [address] Monocytes/100 WBC (Bld) 6.2 % Normal 0-10 [facility] Comment on above: Order Comment: Order Date: 08/08/24 Order Info: 0184-1 - CBCD Performed By: #### L 300.4310, L501.9985, L500.4050, L100.0100, L300.3900, L502.0250 #### [facility] [address] [place], [address] Neutrophils/100 WBC (Bld) 75.1 % High 47-70 [facility] Comment on above: Order Comment: Order Date: 08/08/24 Order Info: 0184-1 - CBCD Performed By: #### L 300.4310, L501.9985, L500.4050, L100.0100, L300.3900, L502.0250 #### [facility] [address] [place], [address] Nucleated RBC (Bld) [#/Vol] 0 10*3/uL Normal 0-5 [facility] Comment on above: Order Comment: Order Date: 08/08/24 Order Info: 0184-1 - CBCD Performed By: #### L 300.4310, L501.9985, L500.4050, L100.0100, L300.3900, L502.0250 #### [facility] [address] [place], [address] Platelet mean volume (Bld) [Entitic vol] 11.1 fL Normal 6.2-12.0 [facility] Comment on above: Order Comment: Order Date: 08/08/24 Order Info: 0184-1 - CBCD Performed By: #### L 300.4310, L501.9985, L500.4050, L100.0100, L300.3900, L502.0250 #### [facility] [address] [place], [address] Platelets (Bld) [#/Vol] 52 10*3/uL Low 150-450 [facility] Comment on above: Order Comment: Order Date: 08/08/24 Order Info: 0184-1 - CBCD Performed By: #### L 300.4310, L501.9985, L500.4050, L100.0100, L300.3900, L502.0250 #### [facility] [address] [place], [address] RBC (Bld) [#/Vol] 4.36 10*6/uL Normal 4.2-5.4 [facility] Comment on above: Order Comment: Order Date: 08/08/24 Order Info: 0184- - CBCD Performed By: #### L 300.4310, L501.9985, L500.4050, L100.0100, L300.3900, L502.0250 #### [facility] [address] [place], [address] RDW SD 46.0 fl High 35.1-43.9 [facility] Comment on above: Order Comment: Order Date: 08/08/24 Order Info: 01809-20 - CBCD Performed By: #### L 300.4310, L501.9985, L500.4050, L100.0100, L300.3900, L502.0250 #### [facility] [address] [place], [address] WBC (Bld) [#/Vol] 5.6 10*3/uL Normal 4.4-11.0 [facility] Comment on above: Order Comment: Order Date: 08/08/24 Order Info: 01809-20 - CBCD Performed By: #### L 300.4310, L501.9985, L500.4050, L100.0100, L300.3900, L502.0250 #### [facility] [address] [place], [address] Comprehensive Metabolic Prof alon 03-14-2024 Albumin [Mass/Vol] 2.8 g/dL Low 3.2-5.0 [facility] Comment on above: Order Comment: Order Date: 08/08/24 Order Info: 0184- - CBCD Performed By: #### L 300.4310, L501.9985, L500.4050, L100.0100, L300.3900, L502.0250 #### [facility] [address] [place], [address] Albumin/Globulin [Mass ratio] 0.9 {ratio} Normal 0.9-2.4 [facility] Comment on above: Order Comment: Order Date: 08/08/24 Order Info: 0184-1 - CBCD Performed By: #### L 300.4310, L501.9985, L500.4050, L100.0100, L300.3900, L502.0250 #### [facility] [address] [place], [address] ALK P 117 U/L Normal 45-117 [facility] Comment on above: Order Comment: Order Date: 08/08/24 Order Info: 0184-1 - CBCD Performed By: #### L 300.4310, L501.9985, L500.4050, L100.0100, L300.3900, L502.0250 #### [facility] [address] [place], [address] ALT [Catalytic activity/Vol] 26 U/L Normal 13-56 [facility] Comment on above: Order Comment: Order Date: 08/08/24 Order Info: 0184-1 - CBCD Performed By: #### L 300.4310, L501.9985, L500.4050, L100.0100, L300.3900, L502.0250 #### [facility] [address] [place], [address] AST [Catalytic activity/Vol] 33 U/L Normal 15-37 [facility] Comment on above: Order Comment: Order Date: 08/08/24 Order Info: 0184-1 - CBCD Performed By: #### L 300.4310, L501.9985, L500.4050, L100.0100, L300.3900, L502.0250 #### [facility] [address] [place], [address] Bilirubin [Mass/Vol] 1.80 mg/dL High 0.20-1.00 [facility] Comment on above: Order Comment: Order Date: 08/08/24 Order Info: 0184-1 - CBCD Result Comment: For patients on eltrombopag therapy, use of Dimension [place] TBIL is not recommended. Performed By: #### L 300.4310, L501.9985, L500.4050, L100.0100, L300.3900, L502.0250 #### [facility] [address] [place], [address] BUN/CRE 11.0 RATIO Normal 10-20 [facility] Comment on above: Order Comment: Order Date: 08/08/24 Order Info: 0184-1 - CBCD Performed By: #### L 300.4310, L501.9985, L500.4050, L100.0100, L300.3900, L502.0250 #### [facility] [address] [place], [address] CA,Total 8.8 mg/dL Normal 8.5-10.1 [facility] Comment on above: Order Comment: Order Date: 08/08/24 Order Info: 0184-1 - CBCD Performed By: #### L 300.4310, L501.9985, L500.4050, L100.0100, L300.3900, L502.0250 #### [facility] [address] [place], [address] Chloride [Moles/Vol] 109 mmol/L High 98-107 [facility] Comment on above: Order Comment: Order Date: 08/08/24 Order Info: 0184-1 - CBCD Performed By: #### L 300.4310, L501.9985, L500.4050, L100.0100, L300.3900, L502.0250 #### [facility] [address] [place], [address] CO2 [Moles/Vol] 26.0 mmol/L Normal 21.0-32.0 [facility] Comment on above: Order Comment: Order Date: 08/08/24 Order Info: 0184-1 - CBCD Performed By: #### L 300.4310, L501.9985, L500.4050, L100.0100, L300.3900, L502.0250 #### [facility] [address] [place], [address] Creatinine [Mass/Vol] 1.09 mg/dL High 0.55-1.02 [facility] Comment on above: Order Comment: Order Date: 08/08/24 Order Info: 0184-1 - CBCD Result Comment: The validity of the calculated GFR GFRAA in patients over 70 years has not been determined. Clinical correlation is essential. Performed By: #### L 300.4310, L501.9985, L500.4050, L100.0100, L300.3900, L502.0250 #### [facility] [address] [place], [place], [id number] (936) EST GFR - AA 66 mL/min Normal >60 [facility] Comment on above: Order Comment: Order Date: 08/08/24 Order Info: 0184-1 - CBCD Result Comment: Afri can [place] GFR Calc Performed By: #### L 300.4310, L501.9985, L500.4050, L100.0100, L300.3900, L502.0250 #### [facility] [address] [place], [address] GAP 5 Normal 5-15 [facility] Comment on above: Order Comment: Order Date: 08/08/24 Order Info: 0184-1 - CBCD Performed By: #### L 300.4310, L501.9985, L500.4050, L100.0100, L300.3900, L502.0250 #### [facility] [address] [place], [address] GFR/1.73 sq M.predicted among non-blacks MDRD (S/P/Bld) [Vol rate/Area] 54 mL/min/{1.73_m2} Low >60 [facility] Comment on above: Order Comment: Order Date: 08/08/24 Order Info: 0184-1 - CBCD Result Comment: Non- GFR Calc Performed By: #### L 300.4310, L501.9985, L500.4050, L100.0100, L300.3900, L502.0250 #### [facility] [address] [place], [address] Globulin (S) [Mass/Vol] 3.1 g/dL Normal 2.2-4.2 [facility] Comment on above: Order Comment: Order Date: 08/08/24 Order Info: 0184- - CBCD Performed By: #### L 300.4310, L501.9985, L500.4050, L100.0100, L300.3900, L502.0250 #### [facility] [address] [place], [address] Glucose [Mass/Vol] 179 mg/dL High 74-106 [facility] Comment on above: Order Comment: Order Date: 08/08/24 Order Info: 0184-1 - CBCD Result Comment: Fast ing Glucose result greater than or equal to 126 mg/dL suggests DIABETES MELLITUS per A.D.A. criteria. Performed By: #### L 300.4310, L501.9985, L500.4050, L100.0100, L300.3900, L502.0250 #### [facility] [address] [place], [address] Potassium [Moles/Vol] 3.5 mmol/L Normal 3.5-5.1 [facility] Comment on above: Order Comment: Order Date: 08/08/24 Order Info: 0184-1 - CBCD Performed By: #### L 300.4310, L501.9985, L500.4050, L100.0100, L300.3900, L502.0250 #### [facility] [address] [place], [address] Sodium [Moles/Vol] 140 mmol/L Normal 136-145 [facility] Comment on above: Order Comment: Order Date: 08/08/24 Order Info: 0184-1 - CBCD Performed By: #### L 300.4310, L501.9985, L500.4050, L100.0100, L300.3900, L502.0250 #### [facility] [address] [place], [address] T PROT 5.9 g/dL Low 6.4-8.2 [facility] Comment on above: Order Comment: Order Date: 08/08/24 Order Info: 0184-1 - CBCD Performed By: #### L 300.4310, L501.9985, L500.4050, L100.0100, L300.3900, L502.0250 #### [facility] [address] [place], [address] Urea nitrogen [Mass/Vol] 12 mg/dL Normal 7-18 [facility] Comment on above: Order Comment: Order Date: 08/08/24 Order Info: 0184-1 - CBCD Performed By: #### L 300.4310, L501.9985, L500.4050, L100.0100, L300.3900, L502.0250 #### [facility] [address] [facility] [place], [address] Chest PA and Lateralon 02-14 Chest PA and Lateral [facility] [address] [place] [address] Chest PA and Lateral MR#: [id number] Acct: [id number] Name: YARA BETH Rep #: [id number] : 1960 F 63 From: Chava donovan MD PCP: Dr. Darryl Nam MD Status: REG CLI Study: Chest PA and Lateral Date of Exam: 02/15/24 Exam# [id number] Ordering Dr: Darryl Nam MD :[id number] STUDY: X-RAY CHEST REASON FOR EXAM: Female, 63 years old. ASTHMA, MILD INTERMITTENT TECHNIQUE: Frontal and lateral views of the chest. COMPARISON: 02/02/2021. FINDINGS: There is hyperinflation of the lungs consistent with chronic obstructive lung disease (COPD). No infiltrates. No effusions. There is no demonstrated pleural abnormality. Normal size heart. Normal mediastinum and ruben. Normal visualized pulmonary arteries. Normal visualized aortic arch and descending thoracic aorta. There are diffuse degenerative changes of the visualized thoracic spine. Normal visualized ribs, clavicles, and shoulders. There is no demonstrated abnormality of the visualized soft tissue structures of the upper abdomen. RAD/Chest PA and Lateral IMPRESSION: Findings consistent with COPD/asthma. No acute chest disease. Electronically Signed: Chava Olivier MD at 23:01 EDT , CC: Dr. Darryl Nam MD Banking Paralegal: Signed [facility] XR ABDOMEN 1V SUPINEon 12-13 XR ABDOMEN 1V SUPINE * * *Final Report* * * DATE OF EXAM: Dec 14 2023 1:47PM FVX [id number] - XR ABDOMEN 1V SUPINE / PROCEDURE REASON: kidney stones * * * * Physician Interpretation * * * * HISTORY: kidney stones TECHNIQUE: XR ABDOMEN 1V SUPINE COMPARISON: 12/08/2022 RESULT: No definite urolithiasis. No dilated loops of bowel. Colonic stool burden is not excessive. Osseous structures are intact. IMPRESSION: No definite urolithiasis. Banking Paralegal: PAM Transcribe Date/Time: Dec 22 2023 9:10A Dictated by : SHANE HACKETT MD This examination was interpreted and the report reviewed and electronically signed by: SHANE HACKETT MD on Dec 22 2023 9:10AM EST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 Moderate (conscious) sedation was administered by the nurse and supervised by the endoscopist. The patient's oxygen saturation, heart rate, blood pressure and response to care were monitored. Total physician intraservice time was 10 minutes. IMPRESS Impression: - Normal hypopharynx. - Grade I esophageal varices with no bleeding and no stigmata of recent bleeding. - A medium amount of food (residue) in the stomach. - Portal hypertensive gastropathy. - Normal duodenal bulb, first portion of the duodenum and second portion of the duodenum. - No specimens collected. EBL Estimated Blood Loss: Estimated blood loss was minimal. ENDORECOMMENDATION Recommendation: - Patient has a contact number available for emergencies. The signs and symptoms of potential delayed complications were discussed with the patient. Return to normal activities tomorrow. Written discharge instructions were provided to the patient. - Resume previous diet. - Continue present medications. - Give a beta haily with dosage titrated by the heart rate. Prescription for Carvedilol sent to pharmacy. - Return to liver clinic as previously scheduled. - Consider repeat upper endoscopy in 2 years for surveillance. Suggest more longer NPO instructions, holding GLP-1 for a few days prior to the procedure. CPT_COD (more content not included)... Normal [facility] Radiologyon 01-27-2022 US Liver Normal [facility] Work Phone: US DUPLX ART/VEIN ABon 01-27 US DUPLX ART/VEIN AB Patient Name: YARA BETH STUDY: US LIVER; US DUPLX ART/VEIN AB; 01/27/2022 11:05 am INDICATION: NAFLD, Cirrhosis; HCC Surveillance D69.6: Thrombocytopenia K76.0: NAFLD (nonalcoholic fatty liver disease) K74.60: Cirrhosis. COMPARISON: 12/29/2013. ACCESSION NUMBER(S): [id number]; [id number] ORDERING CLINICIAN: WENDY OLVERA TECHNIQUE: Multiple images of the right upper quadrant were obtained. Olvera scale, color Doppler and spectral Doppler waveform analysis was performed. FINDINGS: LIVER: There is diffuse coarsened appearance of the hepatic parenchyma with some irregularity of the surface contour compatible with the history of cirrhosis. No discrete hepatic lesion is demonstrated. Liver measures 15.1 cm in sagittal dimension. GALLBLADDER: There has been a cholecystectomy. BILIARY SYSTEM: Visualized portion the common bile duct is not dilated measuring 2 mm in diameter. DOPPLER EVALUATION: HEPATIC ARTERIES: Hepatic artery and its right and left branches RI's are estimated at 0.6, 0.6 and 0.6, respectively. PORTAL VEIN: Portal vein is patent and measures 8 mm. There is normal respiratory variation. Portal vein velocities are calculated as follows: main portal vein 14 cm/sec, antegrade flow; left portal vein branch 15 cm/sec, antegrade flow; right portal vein anterior branch 10 cm/sec, antegrade flow; right portal vein posterior branch 11 cm/sec, antegrade flow. The splenic vein is also patent although retrograde flow is demonstrated within the splenic vein at the pancreas level. HEPATIC VEIN: The right, middle and left hepatic veins are patent and demonstrate biphasic antegrade flow. IVC appears also patent. PANCREAS: The pancreas is poorly visualized due to overlying bowel gas. RIGHT KIDNEY: The right kidney measures 9.6 cm in length. No hydronephrosis or renal calculi are seen. A right renal hypoechoic cyst measures 8 mm in diameter. SPLEEN: Spleen is enlarged measuring approximately 19 cm in sagittal dimension. No discrete splenic lesion is demonstrated. PERITONEUM AND RETROPERITONEUM: No free fluid is identified. IMPRESSION: Cirrhotic morphology of the liver. No focal hepatic lesion demonstrated. Patency of the hepatic vasculature. Retrograde flow demonstrated within the splenic vein at the pancreas level. Otherwise antegrade flow is demonstrated throughout the portal venous system. Splenomegaly likely related to portal hypertension. Electronically signed by: KATHARINA SCHMID MD Normal [facility] US LIVERon 01-27-2022 US LIVER Patient Name: YARA BETH STUDY: US LIVER; US DUPLX ART/VEIN AB; 01/27/2022 11:05 am INDICATION: NAFLD, Cirrhosis; HCC Surveillance D69.6: Thrombocytopenia K76.0: NAFLD (nonalcoholic fatty liver disease) K74.60: Cirrhosis. COMPARISON: 12/29/2013. ACCESSION NUMBER(S): [id number]; [id number] ORDERING CLINICIAN: WENDY OLVERA TECHNIQUE: Multiple images of the right upper quadrant were obtained. Olvera scale, color Doppler and spectral Doppler waveform analysis was performed. FINDINGS: LIVER: There is diffuse coarsened appearance of the hepatic parenchyma with some irregularity of the surface contour compatible with the history of cirrhosis. No discrete hepatic lesion is demonstrated. Liver measures 15.1 cm in sagittal dimension. GALLBLADDER: There has been a cholecystectomy. BILIARY SYSTEM: Visualized portion the common bile duct is not dilated measuring 2 mm in diameter. DOPPLER EVALUATION: HEPATIC ARTERIES: Hepatic artery and its right and left branches RI's are estimated at 0.6, 0.6 and 0.6, respectively. PORTAL VEIN: Portal vein is patent and measures 8 mm. There is normal respiratory variation. Portal vein velocities are calculated as follows: main portal vein 14 cm/sec, antegrade flow; left portal vein branch 15 cm/sec, antegrade flow; right portal vein anterior branch 10 cm/sec, antegrade flow; right portal vein posterior branch 11 cm/sec, antegrade flow. The splenic vein is also patent although retrograde flow is demonstrated within the splenic vein at the pancreas level. HEPATIC VEIN: The right, middle and left hepatic veins are patent and demonstrate biphasic antegrade flow. IVC appears also patent. PANCREAS: The pancreas is poorly visualized due to overlying bowel gas. RIGHT KIDNEY: The right kidney measures 9.6 cm in length. No hydronephrosis or renal calculi are seen. A right renal hypoechoic cyst measures 8 mm in diameter. SPLEEN: Spleen is enlarged measuring approximately 19 cm in sagittal dimension. No discrete splenic lesion is demonstrated. PERITONEUM AND RETROPERITONEUM: No free fluid is identified. IMPRESSION: Cirrhotic morphology of the liver. No focal hepatic lesion demonstrated. Patency of the hepatic vasculature. Retrograde flow demonstrated within the splenic vein at the pancreas level. Otherwise antegrade flow is demonstrated throughout the portal venous system. Splenomegaly likely related to portal hypertension. Electronically signed by: KATHARINA SCHMID MD Normal [facility] Ultrasound Duplex Abd/Pel/Sc rotal Cmpton 01-27-2022 Ultrasound Duplex Abd/Pel/Scrotal Cmpt Normal [facility] Work Phone: Procedure (Gastroenterology) on 01-20-2022 Procedure (Gastroenterology) Diagnoses/Problems Assessed Cirrhosis (571.5) (K74.60) NAFLD (nonalcoholic fatty liver disease) (571.8) (K76.0) Thrombocytopenia (287.5) (D69.6) Provider Impressions This was a technically adequate study. The Fibrosis score is consistent with Metavir F3-4 (stage 3-4 of 4) . The CAP score is consistent with 67-100 % hepatocyte steatosis. 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) Cutaneous candidiasis (112.3) (B37.2) Diabetes mellitus (250.00) (E11.9) Encounter for routine gynecological examination (V72.31) (Z01.419) Environmental allergies (V15.09) (Z91.09) Mild Erosive gastritis (535.40) (K29.60) Fibroid uterus (218.9) (D25.9) Hyperlipidemia (272.4) (E78.5) Hypertension (401.9) (I10) Hypokalemia (276.8) (E87.6) Leg cramps (729.82) (R25.2) Low back pain, episodic (724.2) (M54.50) Melena (578.1) (K92.1) Menopause (627.2) (Z78.0) Microscopic hematuria (599.72) (R31.29) NAFLD (nonalcoholic fatty liver disease) (571.8) (K76.0) Need for hepatitis B screening test (V73.89) (Z11.59) Need for hepatitis C screening test (V73.89) (Z11.59) Nonalcoholic steatohepatitis (571.8) (K75.81) Obesity (278.00) (E66.9) ABISAI (obstructive sleep apnea) (327.23) (G47.33) Postmenopausal bleeding (627.1) (N95.0) Screening for malignant neoplasm of cervix (V76.2) (Z12.4) Screening for osteoporosis (V82.81) (Z13.820) Sinusitis (473.9) (J32.9) Thrombocytopenia (287.5) (D69.6) Tubular adenoma of colon (211.3) (D12.6) UTI symptoms (788.99) (R39.9) Visit for screening mammogram (V76.12) (Z12.31) Past Medical History Problems Diabetes mellitus (250.00) (E11.9) History of Fatty liver (571.8) (K76.0) History of kidney stones (V13.01) (Z87.442) History of Screening for malignant neoplasms, colon Surgical History Problems History of Cervical Loop Electrosurgical Excision (LEEP) x 2 History of Cholecystectomy Laparoscopic History of Colposcopy Cervix With Biopsy(S) With Endocervical Curettage History of Diagnostic Esophagogastroduodenoscopy History of Ear Pressure Equalization Tube History of Lithotripsy History of Neck surgery History of Palatoplasty For Cleft Palate Family History Mother Family history of Epilepsy Family history of osteoporosis (V17.81) (Z82.62) Father Family history of Aneurysm Of Abdominal Aorta Family history of Blood clot in vein Family history of Chronic Obstructive Pulmonary Disease Family history of myocardial infarction (V17.3) (Z82.49) Family history of H/O heart bypass surgery Family history of Hypertension (V17.49) Family history of Obstructive Sleep Apnea Maternal Grandmother Family history of Diabetes Mellitus (V18.0) Family history of osteoporosis (V17.81) (Z82.62) Grandfather Family history of emphysema (V17.6) (Z82.5) Social History Problems Denied: History of Activities: Swimming Exercise: Walking Marital History - Single Never a smoker No drug use Social alcohol use 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 Advair HFA 230-21 MCG/ACT Inhalation Aerosol Azelastine HCl - 0.15 % Nasal Solutioninstill 1 spray into each nostril twice a day Fluticasone Propionate 50 MCG/ACT Nasal Suspensioninstill 2 sprays into each nostril once daily Glimepiride 1 MG Oral Tablet Iron TABS Januvia 50 MG Oral Tablet Pantoprazole Sodium 40 MG Oral Tablet Delayed Release Spironolactone 100 MG Oral Tablet Procedure Patient referred for Fibroscan study for diagnosis of cirrhosis, NAFLD, thrombocytopenia Patient identified x 2 identifiers and the following: age 18 or older- yes fasting for > 3 hours- yes if female, not - no no implanted devices ( i.e. pacemaker, ICD) - no Fibroscan study completed using the XL probe and consecutive valid measurements obtained. Patient tolerated procedure well Results: Median = 12.1 kPa IQR/ med = 12 % CAP = 335 dB/ m Patient advised that Dr. Wendy Olvera will read the study and contact her with the results Azeb Kennedy RN Signatures Electronically signed by : Wendy Olvera MD; Jan 23 2022 7:02AM EST (Author) [facility] Alpha-fetoprotein serumon AFP [Mass/Vol] 4 ng/mL 0 - 9 [facility]roe n [facility]ology[facility] Work Phone: Comment on above: SOURCE: AFP testing is performed by chemiluminescent immunoassay using the [employer]. Values obtained with different analyte methods cannot be used interchangeably. This test can be used as an adjunct in the diagnosis and monitoring of AFP-producing tumors, including non-seminomatous germ cell tumors and hepatocellular carcinomas. Complete Blood Count + Diffe rentialon 01-09-2022 Basophils/100 WBC (Bld) 0.3 % 0.0 - 2.0 [facility] Work Phone: Erythrocyte distribution width (RBC) [Ratio] 13.0 % See Below [facility] Work Phone: Comment on above: Reference Range: 11. 5 - 14.5 Hematocrit (Bld) [Volume fraction] 43.9 % See Below [facility] Work Phone: Comment on above: Reference Range: 36. 0 - 46.0 Hemoglobin (Bld) [Mass/Vol] 15.1 g/dL See Below [facility] Work Phone: Comment on above: Reference Range: 12. 0 - 16.0 Lymphocytes/100 WBC (Bld) 14.8 % See Below [facility] Work Phone: Comment on above: Reference Range: 13. 0 - 44.0 MCHC (RBC) [Mass/Vol] 34.4 g/dL See Below [facility] Work Phone: Comment on above: Reference Range: 32. 0 - 36.0 MCV (RBC) [Entitic vol] 94 fL 80 - 100 [facility] Work Phone: Monocytes/100 WBC (Bld) 6.7 % 2.0 - 10.0 [facility] Work Phone: Neutrophils/100 WBC (Bld) 76.2 % See Below [facility] Work Phone: Comment on above: Reference Range: 40. 0 - 80.0 Platelets (Bld) [#/Vol] 56 10*3/uL below low threshold 150 - 450 [facility] Work Phone: Comment on above: Platelet count may b e higher than reported due to presence of PlateletClumps. RBC (Bld) [#/Vol] 4.68 {x10E12/L} See Below [facility] Work Phone: Comment on above: Reference Range: 4.0 0 - 5.20 WBC (Bld) [#/Vol] 7.0 10*3/uL 4.4 - 11.3 MG-Gas troen terology-[facility] Work Phone: Complete Blood Count + Differential 0.02 {x10E9/L} See Below [facility] Work Phone: Comment on above: Reference Range: 0.0 0 - 0.10 Complete Blood Count + Differential 0.11 {x10E9/L} See Below [facility] Work Phone: Comment on above: Reference Range: 0.0 0 - 0.70 Complete Blood Count + Differential 0.47 {x10E9/L} See Below [facility] Work Phone: Comment on above: Reference Range: 0.1 0 - 1.00 Complete Blood Count + Differential 1.04 {x10E9/L} below low threshold See Below [facility] Work Phone: Comment on above: Reference Range: 1.2 0 - 4.80 Complete Blood Count + Differential 5.36 {x10E9/L} See Below [facility] Work Phone: Comment on above: Reference Range: 1.2 0 - 7.70 Complete Blood Count + Differential 1.6 % 0.0 - 6.0 [facility]ology[facility] Work Phone: Complete Blood Count + Differential 0.4 % 0.0 - 0.9 [facility]ology[facility] Work Phone: Comment on above: Immature Granulocyte Count (IG) includes promyelocytes, myelocytes and metamyelocytes but does not include bands. Percent differential counts (%) should be interpreted in the context of the absolute cell counts (cells/L). Complete Blood Count + Differential 0.0 {/100_WBC} 0.0-0.0 [facility] Work Phone: Ferritin, Serumon 01-09-2022 Ferritin [Mass/Vol] 112 ug/L 8 - 150 [facility] stroen terology-[facility] Work Phone: Hepatic Function Panelon Albumin BCP dye [Mass/Vol] 3.5 g/dL 3.4 - 5.0 [facility]ology-[facility] Work Phone: ALP [Catalytic activity/Vol] 100 U/L 33 - 110 [facility] Work Phone: ALT With P-5'-P [Catalytic activity/Vol] 18 U/L 7 - 45 [facility] Work Phone: Comment on above: Patients treated wit h Sulfasalazine may generate falsely decreased results for ALT. AST With P-5'-P [Catalytic activity/Vol] 22 U/L 9 - 39 [facility]ology[facility] Work Phone: Bilirubin [Mass/Vol] 1.1 mg/dL 0.0 - 1.2 MG-G astroen terology-[facility] Work Phone: Bilirubin.direct [Mass/Vol] 0.3 mg/dL 0.0 - 0.3 [facility]astroen terology-[facility] Work Phone: Protein [Mass/Vol] 6.4 g/dL 6.4 - 8.2 MG-Gas troen terology-Ad min [facility] Work Phone: Hepatitis A Antibody, Totalo n 01-09-2022 HAV Ab IA Ql (S) Reactive Abnormal See Below MG-Gastr oen terology-Ad min [facility] Work Phone: Comment on above: SOURCE: Reference Ra nge: NONREACTIVE Biotin interference may cause falsely elevated results. Patients taking a Biotin dose of up to 5 mg/day should refrain from taking Biotin for 24 hours before sample collection. Providers may contact their local laboratory for further information. Hepatitis B Core Antibody, T otalon 01-09-2022 Hepatitis B Core Antibody, Total Non-Reactive See Below MG-Gastroen terology-Ad min [facility] Work Phone: Comment on above: SOURCE: Reference Ra nge: NONREACTIVE Results from patients taking biotin supplements or receiving high-dose biotin therapy should be interpreted with caution due to possible interference with this test. Providers may contact their local laboratory for further information. SOURCE: Reference Ra nge: NONREACTIVE Biotin interference may cause falsely decreased results. Patients taking a Biotin dose of up to 5 mg/day should refrain from taking Biotin for 24 hours before sample collection. Providers may contact their local laboratory for further information. Hepatitis B Surface Antibody on 01-09-2022 HBV surface Ag IA Ql <3.1 <10 MG-G astroen terology-Ad min [facility] [employer] [employer] Work Phone: Comment on above: SOURCE: INTERPRETIVE CRITERIA:<10 mIU/mL....NONREACTIVE >=10 mIU/mL...REACTIVE . Biotin interference may cause falsely decreased results. Patients taking a Biotin dose of up to 5 mg/day should refrain from taking Biotin for 24 hours before sample collection. Providers may contact their local laboratory for further information. Initial Visit (Gastroenterol ogy)on 01-09-2022 Initial Visit (Gastroenterology) Diagnoses/Problems Assessed NAFLD (nonalcoholic fatty liver disease) (571.8) (K76.0) Cirrhosis (571.5) (K74.60) Need for hepatitis B screening test (V73.89) (Z11.59) Need for hepatitis C screening test (V73.89) (Z11.59) Thrombocytopenia (287.5) (D69.6) Orders Cirrhosis, NAFLD (nonalcoholic fatty liver disease) Hepatitis A Antibody, Total; Status:Resulted - Requires Verification,Retrospective Authorization; Done: 09Jan2022 12:56PM Performed:[facility]; Due:09Apr2022;Ordered; For:Cirrhosis, NAFLD (nonalcoholic fatty liver disease); Ordered By:Wendy Olvera; Cirrhosis, NAFLD (nonalcoholic fatty liver disease), Need for hepatitis B screening test Hepatitis B Core Antibody, Total; Status:Resulted - Requires Verification,Retrospective Authorization; Done: 09Jan2022 12:56PM Performed:[facility]; Due:09Apr2022;Ordered; For:Cirrhosis, NAFLD (nonalcoholic fatty liver disease), Need for hepatitis B screening test; Ordered By:Wendy Olvera; Hepatitis B Surface Antibody; Status:Resulted - Requires Verification,Retrospective Authorization; Done: 09Jan2022 12:56PM Performed:[facility]; Due:09Apr2022;Ordered; For:Cirrhosis, NAFLD (nonalcoholic fatty liver disease), Need for hepatitis B screening test; Ordered By:Wendy Olvera; Hepatitis B Surface Antigen; Status:Resulted - Requires Verification,Retrospective Authorization; Done: 09Jan2022 12:56PM Performed:[facility]; Due:09Apr2022;Ordered; For:Cirrhosis, NAFLD (nonalcoholic fatty liver disease), Need for hepatitis B screening test; Ordered By:Wendy Olvera; Cirrhosis, NAFLD (nonalcoholic fatty liver disease), Need for hepatitis C screening test Hepatitis C Antibody Test; Status:Resulted - Requires Verification,Retrospective Authorization; Done: 09Jan2022 12:56PM Performed:[facility]; Due:09Apr2022;Ordered; For:Cirrhosis, NAFLD (nonalcoholic fatty liver disease), Need for hepatitis C screening test; Ordered By:Wendy Olvera; Cirrhosis, NAFLD (nonalcoholic fatty liver disease), Thrombocytopenia Hepatology Follow-Up Outpatient Follow-up with Dr. Olvera in 6 weeks. Status: Hold For - Scheduling,Retrospective Authorization Requested for: 20Feb2022 Ordered;For: Cirrhosis, NAFLD (nonalcoholic fatty liver disease), Thrombocytopenia; Ordered By: Wendy Olvera Performed: Due: 21May2022; Last Updated By: Maricarmen Clark; 01/09/2022 11:36:44 AM Alpha Fetoprotein, Serum; Status:Resulted - Requires Verification,Retrospective Authorization; Done: 09Jan2022 12:56PM Performed:[facility]; Due:09Apr2022;Ordered; For:Cirrhosis, NAFLD (nonalcoholic fatty liver disease), Thrombocytopenia; Ordered By:Wendy Olvera; [id number] Phenotype, Serum; Status:In Progress - Specimen/Data Collected; Done: 09Jan2022 Perform:Lab Services - Lab To Draw (Blood Test); Due:09Apr2022;Ordered; For:Cirrhosis, NAFLD (nonalcoholic fatty liver disease), Thrombocytopenia; Ordered By:Wendy Olvera; BREANNE-WITH REFLEX TO VENANCIO; Status:In Progress - Specimen/Data Collected; Done: 09Jan2022 Perform:Lab Services - Lab To Draw (Blood Test); Due:09Apr2022;Ordered; For:Cirrhosis, NAFLD (nonalcoholic fatty liver disease), Thrombocytopenia; Ordered By:Wendy Olvera; Antimitochondrial Ab; Status:In Progress - Specimen/Data Collected; Done: 09Jan2022 Perform:Lab Services - Lab To Draw (Blood Test); Due:09Apr2022;Ordered; For:Cirrhosis, NAFLD (nonalcoholic fatty liver disease), Thrombocytopenia; Ordered By:Wendy Olvera; Basic Metabolic Panel; Status:Resulted - Requires Verification,Retrospective Authorization; Done: 09Jan2022 12:56PM Performed:[facility]; Due:09Apr2022;Ordered; For:Cirrhosis, NAFLD (nonalcoholic fatty liver disease), Thrombocytopenia; Ordered By:Wendy Olvera; Complete Blood Count + Differential; Status:Resulted - Requires Verification,Retrospective Authorization; Done: 09Jan2022 12:56PM Performed:[facility]; Due:09Apr2022;Ordered; For:Cirrhosis, NAFLD (nonalcoholic fatty liver disease), Thrombocytopenia; Ordered By:Wendy Olvera; Ferritin, Serum; Status:Resulted - Requires Verification,Retrospective Authorization; Done: 09Jan2022 12:56PM Performed:[facility]; Due:09Apr2022;Ordered; For:Cirrhosis, NAFLD (nonalcoholic fatty liver disease), Thrombocytopenia; Ordered By:Wendy Olvera; Hepatic Function Panel; Status:Resulted - Requires Verification,Retrospective Authorization; Done: 09Jan2022 12:56PM Performed:[facility]; Due:09Apr2022;Ordered; For:Cirrhosis, NAFLD (nonalcoholic fatty liver disease), Thrombocytopenia; Ordered By:Wendy Olvera; Immunoglobulins (G,A,M); Status:Resulted - Requires Verification,Retrospective Authorization; Done: 09Jan2022 12:56PM Performed:[facility]; Due:09Apr2022;Ordered; For:Cirrhosis, NAFLD (nonalcoholic fatty liver disease), Thrombocytopenia; Ordered By:Wendy Olvera; IO Liver Ultrasound; Status:Hold For - Scheduling,Retrospective Authorization; Requested for:09Jan2022; Perform:In Office; Due:09Apr2022; Last Updated By:Maricarmen Clark; 01/09/2022 11:36:44 AM;Ordered; For:Cirrhosis, NAFLD (nonalcoholic fatty liver disease), Thrombocytopenia; Ordered (more content not included)... Normal [facility] Laboratory - Chemistry and C hemistry - challengeon 01-09-2022 Alpha 1 antitrypsin [Mass/Vol] 165 mg/dL 90-200 MG-Gastroen terology-Ad min [facility] Work Phone: Comment on above: To convert to umol/L , multiply mg/dL by 0.185 Alpha 1 antitrypsin phenotyping [Interp] MM MG-Gastroen terology-Ad min [facility] Work Phone: Comment on above: The patient appears to have a normal phenotype. All M alleles (including subtypes M1, M2, and M3) produce normal serum concentrations of afyqk-1-vntaefvr inhibitor and are not associated with clinical disease. Caution in interpretation is advised if the patient has been transfused within the previous 21 days.Performed By: [facility] [place] [address] [id number] Director: Benito Irwin MD, PhD Anion gap [Moles/Vol] 12 mmol/L 10 - 20 MG- Gastroen terology-Ad min [facility] Work Phone: Calcium [Mass/Vol] 9.2 mg/dL 8.6 - 10.6 MG-Gas troen terology-Ad min [facility] Work Phone: Chloride [Moles/Vol] 103 mmol/L 98 - 107 MG-G astroen terology-Ad min [facility] [employer] Work Phone: [phone] CO2 [Moles/Vol] 27 mmol/L 21 - 32 MG-Gastro en terology-Ad min [facility] Work Phone: [phone] Creatinine [Mass/Vol] 1.21 mg/dL above high threshold See Below MG-Gastroen terology-Ad min [facility] Work Phone: [phone] Comment on above: Reference Range: 0.5 0 - 1.05 Glucose [Mass/Vol] 272 mg/dL above high threshold 74 - 99 MG-Gastroen terology-Ad min [facility] Work Phone: [phone] IgA [Mass/Vol] 485 mg/dL above high threshold 70 - 400 MG-Gastroen terology-Ad min [facility] Work Phone: [phone] Comment on above: MONOCLONAL PROTEINS MAY CAUSE FALSELY LOWRESULTS IN THIS ASSAY. SERUM PROTEINELECTROPHORESIS SHOULD BE DONE THEFIRST TEST TO EVALUATE MONOCLONAL GAMMOPATHY. IgG [Mass/Vol] 1270 mg/dL 700 - 1600 MG-Gastroe n terology-Ad min [facility] Work Phone: Comment on above: MONOCLONAL PROTEINS MAY CAUSE FALSELY LOWRESULTS IN THIS ASSAY. SERUM PROTEINELECTROPHORESIS SHOULD BE DONE THEFIRST TEST TO EVALUATE MONOCLONAL GAMMOPATHY. IgM [Mass/Vol] 79 mg/dL 40 - 230 MG-Gastroe n terology-Ad min [facility] Work Phone: Comment on above: MONOCLONAL PROTEINS MAY CAUSE FALSELY LOWRESULTS IN THIS ASSAY. SERUM PROTEINELECTROPHORESIS SHOULD BE DONE THEFIRST TEST TO EVALUATE MONOCLONAL GAMMOPATHY. Iron [Mass/Vol] 69 ug/dL 35 - 150 MG-Gastro en terology-Ad min [facility] Work Phone: Iron binding capacity [Mass/Vol] 301 ug/dL 240 - 445 MG-Gastroen terology-Ad min [facility] [employer] Work Phone: Potassium [Moles/Vol] 4.6 mmol/L 3.5 - 5.3 MG- Gastroen terology-Ad min [facility] [employer] Work Phone: Sodium [Moles/Vol] 137 mmol/L 136 - 145 MG-Gas troen terology-Ad min [facility] Work Phone: Urea nitrogen [Mass/Vol] 18 mg/dL 6 - 23 MG-Gastroen terology-Ad min [facility] Work Phone: Laboratory - Coagulationon 0 01-09-2022 INR Coag (PPP) [Relative time] 1.1 {INR} 0.9 - 1.1 MG-Gastroen terology-Ad min [facility] Work Phone: PT Coag (PPP) [Time] 12.5 s 9.8 - 13.4 MG-G astroen terology-Ad min [facility] Work Phone: Laboratory - Serology - non- microon 01-09-2022 Nuclear Ab Hep2 substrate Ql (S) Negative NEGATIVE MG-Gastroen terology-Ad min [facility] Work Phone: Comment on above: The Antinuclear Anti body (BREANNE) test was performed using indirect immunofluorescence assay with HEp-2 cells slide. No Panel Informationon 01-09 23 % below low threshold 25 - 45 MG-Gastroen terology-Ad min [facility] Work Phone: 52 {mL/min/1.73m2} Abnormal >90 MG-Gas troen terology-Ad min [facility] Work Phone: Comment on above: CALCULATIONS OF DIANA MATED GFR ARE PERFORMED USING THE 2020 CKD-EPI STUDY REFIT EQUATION WITHOUT THE RACE VARIABLE FOR THE IDMS-TRACEABLE CREATININE METHODS.https://jasn.asnjournals.org/content/early/ N.9560999796 Negative NEGATIVE MG-Gastroen terology-Ad min Wear[facility] A [facility] Work Phone: Tobacco Screening.on 022 Fall risk assessment a) No falls within the last year MG-Rheumato logy-Chagri n [facility] [address] [facility] Work Phone: Tobacco use status CPHS b) No MG-Rheumato logy-Chagri n [facility] [address] [facility] Work Phone: Basophil percentageon 2021 Bilirubin [Mass/Vol] 1.40 mg/dL 0.20-1.00 [facility] Work Phone: Comment on above: For patients on eltr ombopag therapy, use of Dimension [place] TBIL is not recommended. Chloride [Moles/Vol] 108 mmol/L 98-107 [facility] Work Phone: Glucose [Mass/Vol] 211 mg/dL 74-106 [facility] Work Phone: Comment on above: Glucose result great er than or equal to 200 mg/dLsuggests DIABETES MELLITUS per A.D.A. criteria. Potassium [Moles/Vol] 4.0 mmol/L 3.5-5.1 [facility] Work Phone: Protein [Mass/Vol] 6.8 g/dL 6.4-8.2 [facility] Work Phone: Sodium [Moles/Vol] 137 mmol/L 136-145 [facility] Work Phone: Laboratory - Chemistry and C hemistry - challengeon 12-05-2021 ALP [Catalytic activity/Vol] 109 U/L 45-117 [facility] Work Phone: ALT [Catalytic activity/Vol] 24 U/L 13-56 [facility] Work Phone: CO2 [Moles/Vol] 24.0 mmol/L 21.0-32.0 [facility] Work Phone: Globulin (S) [Mass/Vol] 3.8 g/dL 2.2-4.2 [facility] Work Phone: Magnesium [Mass/Vol] 1.9 mg/dL 1.6-2.6 [facility] Work Phone: Urea nitrogen/Creatinine [Mass ratio] 12.6 mg/mg 10-20 [facility] Work Phone: No Panel Informationon 12-05 Estimated GFR (MDRD) Amer 55 mL/min >60 [facility] Work Phone: Comment on above: GFR Calc Estimated GFR (MDRD) Non-Af Amer 46 mL/min >60 [facility] Work Phone: Comment on above: Non- GFR Calc Serum or plasma albumin sera urement (mass/volume)on 12-05-2021 Albumin [Mass/Vol] 3.0 g/dL 3.2-5.0 [facility] Work Phone: Serum or plasma albumin/glob ulin mass ratioon 12-05-2021 Albumin/Globulin [Mass ratio] 0.8 {ratio} 0.9-2.4 [facility] Work Phone: Serum or plasma calcium sera urement (mass/volume)on 12-05-2021 Calcium [Mass/Vol] 9.1 mg/dL 8.5-10.1 [facility] Work Phone: Serum or plasma creatinine m easurement (mass/volume)on 12-05-2021 Creatinine [Mass/Vol] 1.27 mg/dL 0.55-1.02 [facility] Work Phone: Comment on above: The validity of the calculated GFR & GFRAA in patients over 70 years has not been determined. Clinical correlation is essential. Serum or plasma urea nitroge n measurement (mass/volume)on 12-05-2021 Urea nitrogen [Mass/Vol] 16 mg/dL 7-18 [facility] Work Phone: Thin prep Papanicolaou smear with manual screeningon 12-05-2021 Thin prep Papanicolaou smear with manual screening 22 U/L 15-37 [facility] Work Phone: Thin prep Papanicolaou smear with manual screening 5 5-15 [facility] Work Phone: Absolute lymphocyte counton 11-08-2021 Lymphocytes Auto (Unsp spec) [#/Vol] 0.98 10*3/uL 0.83-4.51 [facility] Work Phone: [phone] Basophil percentageon 2021 Basophils/100 WBC (Bld) 0.4 % 0-1 [facility] Work Phone: Bilirubin [Mass/Vol] 1.20 mg/dL 0.20-1.00 [facility] Work Phone: Comment on above: For patients on eltr ombopag therapy, use of Dimension [place] TBIL is not recommended. Chloride [Moles/Vol] 109 mmol/L 98-107 [facility] Work Phone: Eosinophils/100 WBC (Bld) 2.8 % 0-5 [facility] Work Phone: Glucose [Mass/Vol] 202 mg/dL 74-106 [facility] Work Phone: Comment on above: Glucose result great er than or equal to 200 mg/dLsuggests DIABETES MELLITUS per A.D.A. criteria. Neutrophils (Bld) [#/Vol] 3.4 10*3/uL 2.0-7.7 [facility] Work Phone: Neutrophils/100 WBC (Bld) 68.2 % 47-70 [facility] Work Phone: Potassium [Moles/Vol] 4.1 mmol/L 3.5-5.1 [facility] Work Phone: Protein [Mass/Vol] 6.8 g/dL 6.4-8.2 [facility] Work Phone: Sodium [Moles/Vol] 138 mmol/L 136-145 [facility] Work Phone: WBC (Bld) [#/Vol] 4.9 10*3/uL 4.4-11.0 [facility] Work Phone: Blood erythrocytes count (nu mber/volume)on 11-08-2021 RBC (Bld) [#/Vol] 4.43 10*6/uL 4.2-5.4 [facility] Work Phone: Blood hemoglobin measurement (mass/volume)on 11-08-2021 Hemoglobin (Bld) [Mass/Vol] 14.4 g/dL 12.0-15.0 [facility] Work Phone: Blood lymphocytes/100 leukoc yteson 11-08-2021 Lymphocytes/100 WBC (Bld) 19.9 % 19-41 [facility] Work Phone: Blood monocytes/100 leukocyt eson 11-08-2021 Monocytes/100 WBC (Bld) 8.3 % 0-10 [facility] Work Phone: Blood platelet mean volumeon 11-08-2021 Platelet mean volume (Bld) [Entitic vol] 10.3 fL 6.2-12.0 [facility] Work Phone: Determination of erythrocyte mean corpuscular volume (MCV)on 11-08-2021 MCV (RBC) [Entitic vol] 94.1 fL 81-99 [facility] Work Phone: Hematocrit Auto (Bld) [Volum e fraction]on 11-08-2021 Hematocrit (Bld) [Volume fraction] 41.7 % 37-47 [facility] Work Phone: Laboratory - Chemistry and C hemistry - challengeon 11-08-2021 ALP [Catalytic activity/Vol] 103 U/L 45-117 [facility] Work Phone: ALT [Catalytic activity/Vol] 26 U/L 13-56 [facility] Work Phone: CO2 [Moles/Vol] 23.0 mmol/L 21.0-32.0 [facility] Work Phone: Globulin (S) [Mass/Vol] 3.9 g/dL 2.2-4.2 [facility] Work Phone: Urea nitrogen/Creatinine [Mass ratio] 11.3 mg/mg 10-20 [facility] Work Phone: Laboratory - Hematology and Cell countson 11-08-2021 Erythrocyte distribution width (RBC) [Entitic vol] 44.7 fL 35.1-43.9 [facility] Work Phone: Erythrocyte distribution width (RBC) [Ratio] 13.2 % 11.6-14.6 [facility] Work Phone: Immature granulocytes/100 WBC (Bld) 0.400 % 0.0-0.9 [facility] Work Phone: Comment on above: IG% - Immature Granu locytes (promyelocytes, myelocytes and metamyelocytes) > 1% indicates that a LEFT SHIFT is Present. MCH (RBC) [Entitic mass] 32.5 pg 27.0-32.0 [facility] Work Phone: Nucleated RBC/100 WBC (Bld) [Ratio] 0 % 0-5 [facility] Work Phone: MCHC Auto (RBC) [Mass/Vol]on 11-08-2021 MCHC (RBC) [Mass/Vol] 34.5 g/dL 32-36 [facility] Work Phone: No Panel Informationon 11-08 Estimated GFR (MDRD) Amer 49 mL/min >60 [facility] Work Phone: Comment on above: GFR Calc Estimated GFR (MDRD) Non-Af Amer 40 mL/min >60 [facility] Work Phone: Comment on above: Non- GFR Calc Platelets bldon 11-08-2021 Platelets (Bld) [#/Vol] 54 10*3/uL 150-450 [facility] Work Phone: Serum or plasma C reactive p rotein measurement (mass/volume)on 11-08-2021 CRP [Mass/Vol] 8.68 mg/L 0.0-3.0 [facility] Work Phone: Comment on above: C-Reactive Protein ( CRP) provides useful information for thediagnosis, therapy and monitoring of inflammatory processesand associated diseases. For the evaluation of Relative Riskfor Cardiovascular Disease, a High Sensitivity CRP (HSCRP)should be ordered. Serum or plasma albumin sera urement (mass/volume)on 11-08-2021 Albumin [Mass/Vol] 2.9 g/dL 3.2-5.0 [facility] Work Phone: Serum or plasma albumin/glob ulin mass ratioon 11-08-2021 Albumin/Globulin [Mass ratio] 0.7 {ratio} 0.9-2.4 [facility] Work Phone: Serum or plasma calcium sera urement (mass/volume)on 11-08-2021 Calcium [Mass/Vol] 9.1 mg/dL 8.5-10.1 [facility] Work Phone: Serum or plasma creatinine m easurement (mass/volume)on 11-08-2021 Creatinine [Mass/Vol] 1.42 mg/dL 0.55-1.02 [facility] Work Phone: Comment on above: The validity of the calculated GFR & GFRAA in patients over 70 years has not been determined. Clinical correlation is essential. Serum or plasma urea nitroge n measurement (mass/volume)on 11-08-2021 Urea nitrogen [Mass/Vol] 16 mg/dL 7-18 [facility] Work Phone: Thin prep Papanicolaou smear with manual screeningon 11-08-2021 Thin prep Papanicolaou smear with manual screening 26 U/L 15-37 [facility] Work Phone: Thin prep Papanicolaou smear with manual screening 6 5-15 [facility] Work Phone: Radiologyon 10-25-2021 MG Breast Screening FINAL REPORT Interpreted by: YUNI BHAKTA ALEX, MD and PRISCILLA NELSON JOSEPH, MD 10/25/21 14:47 Patient Name: YARA BETH STUDY: DIGITAL DIAG MAMMO LEFT UNILAT; 10/25/2021 2:11 pm ACCESSION NUMBER(S): [id number] ORDERING CLINICIA Normal [facility] Work Phone: Mamm - Screening Mammogram w / Tomosynthesison 09-30-2021 MG Breast Screening FINAL REPORT Interpreted by: JUSTO QUILES NELSON, MD 10/01/21 08:23 Patient Name: YARA BETH STUDY: DIGITAL MAMM SCREENING W/ ROBERT; 09/30/2021 2:45 pm ACCESSION NUMBER(S): [id number] ORDERING CLINICIAN: ANDREW NEVAREZ Normal [facility] Work Phone: LMPon 09-23-2021 Last menstrual period start date AGE 50 [facility] Work Phone: 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 : Annual Screening Mammogram Patient Discussion/Summary 1. Pelvic and breast exam wnl 2. Rec for mammogram given, counseled in breast awareness/self exam 3. Pap NIL/neg 2018 4. Colonoscopy up to date 5. Patient asymptomatic without PMB. No HRT/Osphena. 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 Breast CA screening 3. Cervical CA screening 4. Colon CA screening 5. 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 Patient denies pelvic pain, discharge, dysuria, odor, itching/burning/rash. Menopause at 48, denies PMB, patient otherwise asymptomatic. Not currently sexually active. Review of Systems Constitutional: no fever and no chills. Cardiovascular: no chest pain. Respiratory: no shortness of breath. Gastrointestinal: no abdominal pain, no constipation, no nausea, no diarrhea and no vomiting. Genitourinary: no dysuria, no pelvic pain, no dysmenorrhea, no sexual problems, no change in urinary frequency, no vaginal discharge, no unexplained vaginal bleeding and no lesion/sore. Musculoskeletal: no back pain. 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) Cutaneous candidiasis (112.3) (B37.2) Diabetes mellitus (250.00) (E11.9) Encounter for routine gynecological examination (V72.31) (Z01.419) Environmental allergies (V15.09) (Z91.09) Mild Erosive gastritis (535.40) (K29.60) Fibroid uterus (218.9) (D25.9) Hyperlipidemia (272.4) (E78.5) Hypertension (401.9) (I10) Hypokalemia (276.8) (E87.6) Leg cramps (729.82) (R25.2) Low back pain, episodic (724.2) (M54.50) Melena (578.1) (K92.1) Menopause (627.2) (Z78.0) Microscopic hematuria (599.72) (R31.29) Nonalcoholic steatohepatitis (571.8) (K75.81) Obesity (278.00) (E66.9) ABISAI (obstructive sleep apnea) (327.23) (G47.33) Postmenopausal bleeding (627.1) (N95.0) Screening for malignant neoplasm of cervix (V76.2) (Z12.4) Screening for osteoporosis (V82.81) (Z13.820) Sinusitis (473.9) (J32.9) Thrombocytopenia (287.5) (D69.6) Tubular adenoma of colon (211.3) (D12.6) UTI symptoms (788.99) (R39.9) Visit for screening mammogram (V76.12) (Z12.31) Past Medical History Problems Diabetes mellitus (250.00) (E11.9) History of Fatty liver (571.8) (K76.0) History of kidney stones (V13.01) (Z87.442) History of Screening for malignant neoplasms, colon Surgical History Problems History of Cervical Loop Electrosurgical Excision (LEEP) x 2 History of Cholecystectomy Laparoscopic History of Colposcopy Cervix With Biopsy(S) With Endocervical Curettage History of Diagnostic Esophagogastroduodenoscopy History of Ear Pressure Equalization Tube History of Lithotripsy History of Neck surgery History of Palatoplasty For Cleft Palate Family History Mother Family history of Epilepsy Family history of osteoporosis (V17.81) (Z82.62) Father Family history of Aneurysm Of Abdominal Aorta Family history of Blood clot in vein Family history of Chronic Obstructive Pulmonary Disease Family history of myocardial infarction (V17.3) (Z82.49) Family history of H/O heart bypass surgery Family history of Hypertension (V17.49) Family history of Obstructive Sleep Apnea Maternal Grandmother Family history of Diabetes Mellitus (V18.0) Family history of osteoporosis (V17.81) (Z82.62) Grandfather Family history of emphysema (V17.6) (Z82.5) Social History Problems Denied: History of Activities: Swimming Exercise: Walking Marital History - Single Never a smoker No drug use Social alcohol use 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 Advair HFA 230-21 MCG/ACT Inhalation Aerosol Azelastine HCl - 0.15 % Nasal Solutioninstill 1 spray into each nostril twice a day Fluticasone Propionate 50 MCG/ACT Nasal Suspensioninstill 2 sprays into each nostril once daily Glimepiride 1 MG Oral Tablet Iron TABS Januvia 50 MG Oral Tablet Pantoprazole Sodium 40 MG Oral Tablet Delayed Release Spironolactone 100 MG Oral Tablet (more content not included)... Normal [facility] Absolute lymphocyte counton 07-23-2021 Lymphocytes Auto (Unsp spec) [#/Vol] 0.88 10*3/uL 0.83-4.51 [facility] Work Phone: Basophil percentageon 2021 Basophils/100 WBC (Bld) 0.4 % 0-1 [facility] Work Phone: Bilirubin [Mass/Vol] 1.60 mg/dL 0.20-1.00 [facility] Work Phone: Comment on above: For patients on eltr ombopag therapy, use of Dimension [place] TBIL is not recommended. Chloride [Moles/Vol] 108 mmol/L 98-107 [facility] Work Phone: Eosinophils/100 WBC (Bld) 2.0 % 0-5 [facility] Work Phone: Glucose [Mass/Vol] 273 mg/dL 74-106 [facility] Work Phone: Comment on above: Glucose result great er than or equal to 200 mg/dLsuggests DIABETES MELLITUS per A.D.A. criteria. Neutrophils (Bld) [#/Vol] 3.6 10*3/uL 2.0-7.7 [facility] Work Phone: Neutrophils/100 WBC (Bld) 72.8 % 47-70 [facility] Work Phone: Potassium [Moles/Vol] 4.1 mmol/L 3.5-5.1 [facility] Work Phone: [phone] Protein [Mass/Vol] 6.8 g/dL 6.4-8.2 [facility] Work Phone: Sodium [Moles/Vol] 138 mmol/L 136-145 [facility] Work Phone: WBC (Bld) [#/Vol] 5.0 10*3/uL 4.4-11.0 [facility] Work Phone: Blood erythrocytes count (nu mber/volume)on 07-23-2021 RBC (Bld) [#/Vol] 4.25 10*6/uL 4.2-5.4 [facility] Work Phone: Blood hemoglobin measurement (mass/volume)on 07-23-2021 Hemoglobin (Bld) [Mass/Vol] 13.8 g/dL 12.0-15.0 [facility] Work Phone: Blood lymphocytes/100 leukoc yteson 07-23-2021 Lymphocytes/100 WBC (Bld) 17.6 % 19-41 [facility] Work Phone: Blood manual differential co mment interpretation (narrative result)on 07-23-2021 Manual differential comment Aditya (Bld) [Interp] SCANNED [facility] Work Phone: Comment on above: THROMBOCYTOPENIA NOT ED Blood monocytes/100 leukocyt eson 07-23-2021 Monocytes/100 WBC (Bld) 6.8 % 0-10 [facility] Work Phone: Blood platelet mean volumeon 07-23-2021 Platelet mean volume (Bld) [Entitic vol] 10.8 fL 6.2-12.0 [facility] Work Phone: Determination of erythrocyte mean corpuscular volume (MCV)on 07-23-2021 MCV (RBC) [Entitic vol] 94.4 fL 81-99 [facility] Work Phone: Hematocrit Auto (Bld) [Volum e fraction]on 07-23-2021 Hematocrit (Bld) [Volume fraction] 40.1 % 37-47 [facility] Work Phone: Laboratory - Chemistry and C hemistry - challengeon 07-23-2021 ALP [Catalytic activity/Vol] 97 U/L 45-117 [facility] Work Phone: ALT [Catalytic activity/Vol] 21 U/L 13-56 [facility] Work Phone: CO2 [Moles/Vol] 27.0 mmol/L 21.0-32.0 [facility] Work Phone: Globulin (S) [Mass/Vol] 4.0 g/dL 2.2-4.2 [facility] Work Phone: Urea nitrogen/Creatinine [Mass ratio] 15.4 mg/mg 10-20 [facility] Work Phone: Laboratory - Hematology and Cell countson 07-23-2021 Erythrocyte distribution width (RBC) [Entitic vol] 46.8 fL 35.1-43.9 [facility] Work Phone: Erythrocyte distribution width (RBC) [Ratio] 13.5 % 11.6-14.6 [facility] Work Phone: Immature granulocytes/100 WBC (Bld) 0.400 % 0.0-0.9 [facility] Work Phone: Comment on above: IG% - Immature Granu locytes (promyelocytes, myelocytes and metamyelocytes) > 1% indicates that a LEFT SHIFT is Present. MCH (RBC) [Entitic mass] 32.5 pg 27.0-32.0 [facility] Work Phone: Nucleated RBC/100 WBC (Bld) [Ratio] 0 % 0-5 [facility] Work Phone: MCHC Auto (RBC) [Mass/Vol]on 07-23-2021 MCHC (RBC) [Mass/Vol] 34.4 g/dL 32-36 [facility] Work Phone: No Panel Informationon 07-23 Estimated GFR (MDRD) Amer 58 mL/min >60 [facility] Work Phone: Comment on above: GFR Calc Estimated GFR (MDRD) Non-Af Amer 48 mL/min >60 [facility] Work Phone: Comment on above: Non- GFR Calc Urine Microalbumin/Creatini ne Ratio 17.8 mg/g CRE <30 [facility] Work Phone: Platelets bldon 07-23-2021 Platelets (Bld) [#/Vol] 56 10*3/uL 150-450 [facility] Work Phone: Serum or plasma albumin sera urement (mass/volume)on 07-23-2021 Albumin [Mass/Vol] 2.8 g/dL 3.2-5.0 [facility] Work Phone: Serum or plasma albumin/glob ulin mass ratioon 07-23-2021 Albumin/Globulin [Mass ratio] 0.7 {ratio} 0.9-2.4 [facility] Work Phone: Serum or plasma calcium sera urement (mass/volume)on 07-23-2021 Calcium [Mass/Vol] 8.9 mg/dL 8.5-10.1 [facility] Work Phone: Serum or plasma creatinine m easurement (mass/volume)on 07-23-2021 Creatinine [Mass/Vol] 1.23 mg/dL 0.55-1.02 [facility] Work Phone: Comment on above: The validity of the calculated GFR & GFRAA in patients over 70 years has not been determined. Clinical correlation is essential. Serum or plasma urea nitroge n measurement (mass/volume)on 07-23-2021 Urea nitrogen [Mass/Vol] 19 mg/dL 7-18 [facility] Work Phone: Thin prep Papanicolaou smear with manual screeningon 07-23-2021 Thin prep Papanicolaou smear with manual screening 23 U/L 15-37 [facility] Work Phone: Thin prep Papanicolaou smear with manual screening 3 5-15 [facility] Work Phone: Thin prep Papanicolaou smear with manual screening 28.3 mg/L NO RANGE EST. [facility] Work Phone: Urine creatinine measurement (mass/volume)on 07-23-2021 Creatinine (U) [Mass/Vol] 159.00 mg/dL NO RANGE EST. [facility] Work Phone: AMB ENT Nurseryman Assistant Progress Noteon 07-02-2021 AMB ENT Nurseryman Assistant Progress Note Patient: YARA BETH Age: 60 years Sex: Female : 1960 Associated Diagnoses: None Author: Sandie Medina Patient here because ever since her right neck infection for which she was treated with Erythromycin, she can't hear well on that side. So I increased overall and low frequency gain twice, and MPO once. Also increased overall gain once in the left ear. Discussed BTE aids with larger earmolds or a cochlear implant. '' Normal [facility] FLOW CYTO PROFon 03-01-2021 CD10 MARKER 1 % Normal [facility] Comment on above: Order Comment: Heidi s: M Performed By: #### L [id number] #### [facility] [address] [place] [address] CD11B MARKER 8 % Normal [facility] Comment on above: Order Comment: Heidi s: M Performed By: #### L [id number] #### [facility] [address] [place] [address] CD19 % B CELL 9 % Normal [facility] Comment on above: Order Comment: Heidi s: M Performed By: #### L [id number] #### [facility] [address] [place] [address] CD2 MARKER 86 % Normal [facility] Comment on above: Order Comment: Heidi s: M Performed By: #### L [id number] #### [facility] [address] [place] [address] CD20 MARKER 7 % Normal [facility] Comment on above: Order Comment: Heidi s: M Performed By: #### L [id number] #### [facility] [address] [place], [place] [id number] CD23 MARKER 3 % Normal [facility] Comment on above: Order Comment: Campu s: M Performed By: #### L .[id number] #### [facility] [address] [place] [address] CD3 % T CELLS 71 % Normal [facility] Comment on above: Order Comment: Campu s: M Performed By: #### L .[id number] #### [facility] [address] [place] [address] CD30 MARKER 1 % Normal [facility] Comment on above: Order Comment: Campu s: M Performed By: #### L .[id number] #### [facility] [address] [place] [address] CD38 MARKER 21 % Normal [facility] Comment on above: Order Comment: Campu s: M Performed By: #### L .[id number] #### [facility] [address] [place] [address] CD4 MARKER 60 % Normal [facility] Comment on above: Order Comment: Campu s: M Performed By: #### L .[id number] #### [facility] [address] [place] [address] CD43 MARKER 91 % Normal [facility] Comment on above: Order Comment: Campu s: M Performed By: #### L .[id number] #### [facility] [address] [place] [address] CD45 MARKER 100 % Normal [facility] Comment on above: Order Comment: Campu s: M Performed By: #### L [id number] #### [facility] [address] [place] [address] CD5 MARKER 74 % Normal [facility] Comment on above: Order Comment: Campu s: M Performed By: #### L [id number] #### [facility] [address] [place] [address] CD56 MARKER 19 % Normal [facility] Comment on above: Order Comment: Campu s: M Performed By: #### L [id number] #### [facility] [address] [place] [address] CD57 MARKER 7 % Normal [facility] Comment on above: Order Comment: Campu s: M Performed By: #### L [id number] #### [facility] [address] [place] [id number] CD7 MARKER 82 % Normal [facility] Comment on above: Order Comment: Campu s: M Performed By: #### L .[id number] #### [facility] [place] [id number] CD8 MARKER 19 % Normal [facility] Comment on above: Order Comment: Campu s: M Performed By: #### L .71256 #### [facility] [address] [place], [place] [phone] FDA COMMENT SEE COMMENT Normal [facility] Comment on above: Order Comment: Kevinu s: M Result Comment: THIS TEST WAS DEVELOPED AND ITS PERFORMANCE CHARACTERISTICS DETERMINED BY [facility]. IT HAS NOT BEEN CLEARED BY THE US FOOD AND DRUG ADMINISTRATION (FDA). THE FDA HAS DETERMINED THAT SUCH CLEARANCE OR APPROVAL IS NOT NECESSARY. FOR THE COMPLETE INTENDED USE STATEMENT, AND ANY ADDITIONAL INFORMATION, PLEASE SEE THE FULL FILED REPORT Performed By: #### L [id number] #### [facility] [address] [place], [place] [phone] FLOW COMMENT Normal [facility] Comment on above: Order Comment: Kevinu s: M Result Comment: COEX PRESSION CD19/CD10 0.0% CD19/CD5 0.3% CD19/CD5/CD38 % CD19/CD5/CD23 0.0% Performed By: #### L [id number] #### [facility] [address] [place] [id number] FMC7 MARKER 1 % Normal [facility] Comment on above: Order Comment: Heidi s: M Performed By: #### L [id number] #### [facility] [address] [place] [address] HLA-DR MARKER 28 % Normal [facility] Comment on above: Order Comment: Heidi s: M Performed By: #### L 200.41645 #### [facility] [address] [place] [address] KAPPA MARKER 5 % Normal [facility] Comment on above: Order Comment: Heidi s: M Performed By: #### L [id number] #### [facility] [address] [place] [address] LAMBDA MARKER 4 % Normal [facility] Comment on above: Order Comment: Heidi s: M Performed By: #### L [id number] #### [facility] [place] [address] PATHOLOGY INTER Normal [facility] Comment on above: Order Comment: Heidi Katz Result Comment: SPEC IMEN: RIGHT NECK VIABILITY: 44% IMPRESSION: REACTIVE POLYCLONAL LYMPHOCYTE POPULATION PRESENT. COMMENT: A MIXED POPULATION OF GRANULOCYTE (20%) AND LYMPHOCYTES (FLOW DIFFERENTIAL 46% LYMPHOCYTES) IS PRESENT CONSISTING OF MIXED POPULATION OF T-CELLS (CD2: 85.7%; CD3: 71.4%; CD4: 60.4%; CD5: 73.9%; CD7: 81.5%; CD8: 19.0%) WITH A SLIGHTLY INCREASED CD4:CD8 RATIO: 4.9% (FAVORING A REACTIVE PROCESS), B-CELLS (CD19: 9.3%; CD20: 6.8%; CD23: 2.9%; FMC-7: 1.4%) AND NK CELLS (CD56: 18.5%; CD57: 6.5%). THERE IS NO SIGNIFICANT ABERRANT MARKER CO-EXPRESSION AND NO LIGHT CHAIN RESTRICTION (KAPPA: 4.7%; LAMBDA: 4.1%; KAPPA:LAMBDA RATIO: 1.2), CONSISTENT WITH A BENIGN REACTIVE POLYCLONAL LYMPHOID POPULATION. THERE IS NO EVIDENCE OF NON-HODGKIN LYMPHOMA OR LEUKEMIA. INTERPRETATION IN THE CONTEST OF LIMITED VIABILITY (44%) WITH 31% OF THE SPECIMEN CONSISTING OF CD45 NEGATIVE EVENTS/DEBRIS. CLARENCE BLOOM D.O. 02/28/2021--[facility] [address] Performed By: #### L 200.19959 #### [facility] [address] [place] [address] BMPon 02-27-2021 Anion gap [Moles/Vol] 3 mmol/L Low 5-16 [facility] Comment on above: Order Comment: Campu s: M Performed By: #### L 500.00219, L500.79421, L500.48595 #### [facility] [address] [place] [address] Calcium [Mass/Vol] 8.7 mg/dL Normal 8.5-10.5 [facility] Comment on above: Order Comment: Campu s: M Result Comment: NOTE NEW NORMAL RANGE DUE TO REAGENT CHANGE Performed By: #### L 500.31844, L500.46350, L500.47092 #### [facility] [address] [place] [address] Chloride [Moles/Vol] 110 mmol/L High 98-107 [facility] Comment on above: Order Comment: Campu s: M Performed By: #### L 500.97704, L500.05541, L500.07135 #### [facility] [address] [place] [address] CO2 [Moles/Vol] 28.0 mmol/L Normal 21-32 [facility] Comment on above: Order Comment: Campu s: M Performed By: #### L 500.75040, L500.07916, L500.04933 #### [facility] [place] [address] Creatinine [Mass/Vol] 1.21 mg/dL High 0.510- 0.95 0 [facility] Comment on above: Order Comment: Campu s: M Result Comment: Cori ents receiving either N-Acetylcysteine (NAC) or Metamizole prior to venipuncture, may have falsely depressed results. Performed By: #### L 500.17346, L500.42063, L500.90357 #### [facility] [place] [address] Glucose [Mass/Vol] 130 mg/dL High 70-100 [facility] Comment on above: Order Comment: Campu s: M Result Comment: 70-1 00- Normal Fasting; 100-125 Impaired Fasting; greater than 126 on more than one result- Diabetes. ADA guidelines. Results may be falsely elevated after the administration of Sulfapyridine. Results may be falsely depressed after the administration of Sulfasalazine. Performed By: #### L 500.86048, L500.48511, L500.32047 #### [facility] [address] [place] [address] Potassium [Moles/Vol] 4.0 mmol/L Normal 3.5-5.1 [facility] Comment on above: Order Comment: Campu s: M Result Comment: Slig ht Hemolysis, Result may be affected. Performed By: #### L 500.96657, L500.85412, L500.00221 #### [facility] [place] [address] Sodium [Moles/Vol] 139 mmol/L Normal 136-145 [facility] Comment on above: Order Comment: Campu s: M Performed By: #### L 500.69931, L500.51160, L500.35474 #### [facility] [place] [address] Urea nitrogen [Mass/Vol] 9 mg/dL Normal 7-26 [facility] Comment on above: Order Comment: Campu s: M Performed By: #### L 500.55872, L500.34570, L500.80919 #### [facility] [address] [place] [address] Urea nitrogen/Creatinine [Mass ratio] 7 mg/mg Low 15-24 [facility] Comment on above: Order Comment: Campu s: M Performed By: #### L 500.75351, L500.90301, L500.26366 #### [facility] [address] [place] [address] CBC W/DIFFon 02-27-2021 BASO ABS 0.00 K/CU MM Normal 0-0.2 [facility] Comment on above: Order Comment: Campu s: M Performed By: #### L 200.29949 #### [facility] [address] [place] [address] Basophils/100 WBC (Bld) 0.5 % Normal 0-2 [facility] Comment on above: Order Comment: Campu s: M Performed By: #### L 200.37370 #### [facility] [address] [place] [address] EOS ABS 0.20 K/CU MM Normal 0-0.5 [facility] Comment on above: Order Comment: Campu s: M Performed By: #### L 200.08996 #### [facility] [address] [place] [address] Eosinophils/100 WBC (Bld) 4.2 % Normal 0-5 [facility] Comment on above: Order Comment: Campu s: M Performed By: #### L 200.89371 #### [facility] [address] [place] [address] IMMATR GRAN ABS 0.00 K/CU MM Normal Less than 2 [facility] Comment on above: Order Comment: Campu s: M Performed By: #### L 200.34634 #### [facility] [address] [place] [address] IMMATURE GRAN % 0.7 % Normal Less than 2 [facility] Comment on above: Order Comment: Campu s: M Performed By: #### L 200.47488 #### [facility] [address] [place] [address] LYMPH ABS 0.90 K/CU MM Normal 0.9-4.4 [facility] Comment on above: Order Comment: Campu s: M Performed By: #### L 200.90456 #### [facility] [address] [place] [address] Lymphocytes/100 WBC (Bld) 21.2 % Normal 20-40 [facility] Comment on above: Order Comment: Campu s: M Performed By: #### L 200.48422 #### [facility] [address] [place] [address] MONO ABS 0.30 K/CU MM Normal 0.1-1.1 [facility] Comment on above: Order Comment: Campu s: M Performed By: #### L 200.94244 #### [facility] [address] [place] [address] Monocytes/100 WBC (Bld) 6.5 % Normal 2-10 [facility] Comment on above: Order Comment: Campu s: M Performed By: #### L 200.86762 #### [facility] [address] [place] [address] NEUTROPHIL ABS 2.90 K/CU MM Normal 2.0-8.3 [facility] Comment on above: Order Comment: Campu s: M Performed By: #### L 200.62883 #### [facility] [address] [place] [address] Neutrophils/100 WBC (Bld) 66.9 % Normal 45-75 [facility] Comment on above: Order Comment: Campu s: M Performed By: #### L 200.11519 #### [facility] [address] [place] [id number] PLT EST MOD DECREASED Normal [facility] Comment on above: Order Comment: Campu s: M Performed By: #### L 200.07909 #### [facility] [address] [place] [id number] POLY 1+ Normal [facility] Comment on above: Order Comment: Campu s: M Performed By: #### L 200.65201 #### [facility] [address] [place] [address] Erythrocyte distribution width (RBC) [Ratio] 13.7 % Normal 11-14.5 [facility] Comment on above: Order Comment: Campu s: M Performed By: #### L 200.45764 #### [facility] [address] [place] [address] Hematocrit (Bld) [Volume fraction] 33.1 % Low 35.0-47.0 [facility] Comment on above: Order Comment: Campu s: M Performed By: #### L [id number] #### [facility] [address] [place], [place] [phone] Hemoglobin (Bld) [Mass/Vol] 11.2 g/dL Low 11.5-15.5 [facility] Comment on above: Order Comment: Campu s: M Performed By: #### L 200.19496 #### [facility] [address] [place] [address] MCHC (RBC) [Mass/Vol] 33.8 g/dL Normal 32.0-36.0 [facility] Comment on above: Order Comment: Campu s: M Performed By: #### L 200.88697 #### [facility] [address] [place] [address] MCV (RBC) [Entitic vol] 95.9 fL Normal 80.0-99.0 [facility] Comment on above: Order Comment: Campu s: M Performed By: #### L 200.47530 #### [facility] [address] [place] [address] Nucleated RBC/100 WBC (Bld) [Ratio] 0.0 % Normal Less than 1 [facility] Comment on above: Order Comment: Campu s: M Performed By: #### L [id number] #### [facility] [address] [place] [address] Platelet mean volume (Bld) [Entitic vol] 10.2 fL Normal 9.4-12.4 [facility] Comment on above: Order Comment: Campu s: M Performed By: #### L [id number] #### [facility] [address] [place] [address] PLT 52 K/CU MM Low 150-450 [facility] Comment on above: Order Comment: Campu s: M Result Comment: Conf irmed by slide estimate.Repeated and verified. Performed By: #### L 200.34992 #### [facility] [address] [place] [address] RBC 3.45 M/CU MM Low 3.90-5.30 [facility] Comment on above: Order Comment: Campu s: M Performed By: #### L [id number] #### [facility] [address] [place] [address] WBC 4.3 K/CUMM Low 4.5-11.0 [facility] Comment on above: Order Comment: Campu s: M Performed By: #### L 200.77198 #### [facility] [address] [place] [address] DISCH.SUMon 02-27-2021 DISCH.SUM [facility] Patient Name: YARA BETH [address] [place] [address] Date of : [address] [place] [address] Unit Number: [id number] Discharge Summary Patient Status: DIS IN Attending Doctor: Melanie Carmona MD Service Date: 02/27/21 151 Discharge Summary Admit Date Admission Date Time: 02/18/21 152 Anticipated Discharge Date 02/27/21 Final Dx/Problem List 1. Neck mass On Thu 2:36p Feb 26, 2021 MELANIE CARMONA wrote Right neck mass/abscess Microfollicular Streptococcus/Staph epidermidis right neck cellulitis Diabetes mellitus type 2 Morbid obesity GERD Plan *Continue IV antibiotics as per infection disease, recommended oral antibiotics upon discharge. Meantime continue drainage tube, waiting for ENT to do a drainage tube before discharge patient home *continue monitoring glucose, glucose better controlled, continue home medications and sliding scale insulin *Continue current home medications monitor vitals *Check CBC BMP magnesium for tomorrow *DVT prophylaxis heparin subcutaneous Patient Problems Reviewed: Yes Chief Complaint/HPI Neck mass Reason for Admission Neck mass Operations/Procedures Neck mass IandD Hospital Course The following was under Dr. Zhang care: 52-year-old female with medical history of diabetes gastroesophageal reflux disease hepatic steatosis thrombocytopenia. Patient presents the hospital with complaints of right neck mass patient seen outpatient ENT recommended evaluation in the hospital. In the hospital patient was found to have fluid-filled collection 7 cm on the right neck around the sternocleidomastoid muscle. Patient empirically started on IV antibiotics. Findings on imaging are suggestive of hematoma. Patient was seen by ENT recommending for IR drainage of the region with results sent to pathology. Patient denies fevers chills nausea vomiting. 02/20/2021: Dr. Graf from interventional radiology requested for nursing to contact me regarding symptoms Yara incurred after undergoing the neck biopsy in his department. I went to go see her and Dr. Graf was at the bedside. He explained that upon biopsy, purulent material was returned. About 5 minutes after the biopsy, Yara started to have vomiting. A few minutes later, she had rigors. Her temperature had increased to 99.5 F. By the time I got to the bedside, symptoms and passed and she was complaining only of feeling tired and worn out. Just as I was leaving, her lips started to quiver slightly. Dr. Tracey then called me to notify me that Yara had another episode of vomiting and rigors. This time, temperature increased to around 101 F. He had discussed this case with Dr. Deutsch from pulmonary/critical care medicine and I notified Dr. Deutsch that Yara had another episode that I would like to have her monitored in the intensive care unit. He was fully agreeable with this. I have provided transfer orders. Vomiting and rigors after the biopsy are new issues that I am addressing today. We are continuing intravenous antibiotics as per infectious disease. I concur with infectious disease and ENT. I discussed the postbiopsy events with physician head start assistant teacher Zaida and Dr. Saleh from ENT. I called and updated Dr. De Jesus from infectious disease as well. We will continue Zosyn and vancomycin while awaiting culture results. 02/21/2021: Has received a couple of IV fluid boluses overnight and this morning for borderline hypotension. Blood pressure is currently improved and Yara has been cleared for transfer out of the intensive care unit by pulmonary/critical care medicine. I agree that she is stable for transfer to the medical floor. She remains on broad-spectrum antibiotics with Zosyn and vancomycin. Culture from fluid obtained from the neck during biopsy yesterday is currently pending. Pathology evaluation is pending as well. I concur with pulmonary/critical care medicine, infectious disease, and ENT. I have rounded on Yara with nursing. 02/22/2021: Laboratory studies this morning revealed hypomagnesemia with a magnesium level of 1.3. This is being supplemented intravenously. This is a new issue that I am addressing today. Thrombocytopenia is slightly worse with platelets down to 53,000 today. This will continue to be monitored. Blood sugars have been well controlled, in the 100s today. Lactic acid was normal this morning. Needle aspiration cultures from February 20 are growing moderate microaerophilic Streptococcus which is not viable for sensitivity. This afternoon, Dr. Hernandez from ENT performed an incisional biopsy and drainage of the right neck abscess. Continuing antibiotics as per infectious disease. I concur with infectious disease and ENT. I have rounded on Yara with nursing. 02/23/2021: Surgical cultures from yesterday are negative thus far. Cha was seen by Dr. Saleh from ENT today who examined the surgical wound and rep (more content not included)... Normal [facility] GFR ESTon 02-27-2021 IF AMER 55 Normal [facility] Comment on above: Order Comment: Campu s: M Performed By: #### L 500.52522, L500.29918, L500.85123 #### [facility] [address] [place] [id number] IF non-AFR AMER 46 Normal [facility] Comment on above: Order Comment: Campu s: M Performed By: #### L 500.06553, L500.87770, L500.97859 #### [facility] [address] [place] [address] GLUCOSE METERon 02-27-2021 Glucose [Mass/Vol] 134 mg/dL High 85-125 [facility] Glucose [Mass/Vol] 136 mg/dL High 85-125 [facility] Glucose [Mass/Vol] 112 mg/dL Normal 85-125 [facility] HGB A1C GLYCOHBon 02-27-2021 HbA1c (Bld) [Mass fraction] 8.8 % High 4.3-6.0 [facility] Comment on above: Order Comment: Campu s: M Performed By: #### L 550.87043 #### [facility] [address] [place], [place] [id number] MAGNESIUMon 02-27-2021 Magnesium [Mass/Vol] 1.4 mg/dL Low 1.6-2.6 [facility] Comment on above: Order Comment: Campu s: M Performed By: #### L 500.15319, L500.48715, L500.85334 #### [facility] [address] [place] [id number] PROG.ENTon 02-27-2021 PROG.ENT [facility] Patient Name: YARA BETH [facility] Date of : [address] [address] Unit Number: [id number] Progress Note-ENT Patient Status: ADM IN Attending Doctor: Skyler Fregoso DO Service Date: 02/27/21 1012 Progress Note - ENT Subjective Subjective: (2 ROS minimum) The patient states she is feeling better today with less pain in the neck Objective Nursing Vitals Vital Signs (Last) Result Date Time Pulse Ox 91 02/27 700 B/P 122/50 02/27 07 Temp 98.0 02/27 07 Pulse 89 02/27 0700 Resp 20 02/27 0700 O2 Delivery NASAL CANNULA 02/23 0046 O2 Flow Rate 2 02/22 1826 B/P Mean 83 02/21 1500 Physical Exam The patient is well-appearing in no acute distress she has no stridor her voice is normal she is comfortable. The patient's neck is slowly improving with decreased induration and edema. She states is not as tender when manipulated. The drain is in place. It was removed without difficulty. Some thin drainage consistent with serous fluid could be expressed but no purulence. Diagnostic Data Lab 24hr (CBC/BMP [facility]) 02/27/21 0746: Whole Bld Glucose 112 02/27/21 0617: [Embedded Image Not Available] Anion Gap LESS THAN 3 L, Est GFR ( Amer) 55, Est GFR (Non-Af Amer) 46, BUN/ Creatinine Ratio 7 L, Glucose 130 H, Total Calcium 8.7, Magnesium 1.4 L, RBC 3.45 L, MCV 95.9, MCHC 33.8, RDW 13.7, MPV 10.2, Immature Gran % (Auto) 0.7, Abs Immat Gran (auto) 0.00, Seg Neutrophils % 66.9, Lymphocytes % 21.2, Monocytes % 6.5, Eosinophils % 4.2, Basophils % 0.5, Neutrophils # 2.90, Lymphocytes # 0.90, Monocytes # 0.30, Eosinophils # 0.20, Basophils # 0.00, Nucleated RBCs 0.0, Platelet Estimate MOD DECREASED, Polychromasia 1+ 02/26/214: Whole Bld Glucose 133 H 02/26/21 1752: Whole Bld Glucose 144 H 02/26/21 1233: Whole Bld Glucose 146 H Assessment/Plan Conclusion 1. Localized swelling, mass or lump of neck The patient is slowly improving status post drainage of right neck abscess. The drain was removed this morning without difficulty. Given her improvement I would think it would be appropriate to change to oral antibiotics if okay with infectious disease. She will need to follow-up in the office a week to 10 days after her drainage procedure to see Dr. Hernandez. She will need her sutures removed at that point. She can tolerate a regular diet. If she is able to change to oral antibiotics discharge would be appropriate as well. 02/02/21 Disclaimer This dictation was created using voice recognition software. Phonetic and/or minor grammatical errors may exist. eSign Date and Time Wellington Nam MD Verified/Reviewed by 02/27/21 1015 Normal [facility] Progress Note-ENT Normal [facility] BMPon 02-26-2021 Anion gap [Moles/Vol] 3 mmol/L Low 5-16 [facility] Comment on above: Order Comment: Campu s: M Performed By: #### M 050.81776 #### [facility] [place] [address] Calcium [Mass/Vol] 9.1 mg/dL Normal 8.5-10.5 [facility] Comment on above: Order Comment: Campu s: M Result Comment: NOTE NEW NORMAL RANGE DUE TO REAGENT CHANGE Performed By: #### M 050.47073 #### [facility] [place] [address] Chloride [Moles/Vol] 108 mmol/L High 98-107 [facility] Comment on above: Order Comment: Campu s: M Performed By: #### M 050.43844 #### [facility] [address] [place] [address] CO2 [Moles/Vol] 31.0 mmol/L Normal 21-32 [facility] Comment on above: Order Comment: Campu s: M Performed By: #### M 050.18255 #### [facility] [address] [place] [address] Creatinine [Mass/Vol] 1.19 mg/dL High 0.510- 0.95 0 [facility] Comment on above: Order Comment: Campu s: M Result Comment: Cori ents receiving either N-Acetylcysteine (NAC) or Metamizole prior to venipuncture, may have falsely depressed results. Performed By: #### M 050.78617 #### [facility] [address] [place] [address] Glucose [Mass/Vol] 167 mg/dL High 70-100 [facility] Comment on above: Order Comment: Campu s: M Result Comment: 70-1 00- Normal Fasting; 100-125 Impaired Fasting; greater than 126 on more than one result- Diabetes. ADA guidelines. Results may be falsely elevated after the administration of Sulfapyridine. Results may be falsely depressed after the administration of Sulfasalazine. Performed By: #### M 050.64682 #### [facility] [address] [place] [address] Potassium [Moles/Vol] 4.2 mmol/L Normal 3.5-5.1 [facility] Comment on above: Order Comment: Campu s: M Performed By: #### M 050.09679 #### [facility] [address] [place] [address] Sodium [Moles/Vol] 142 mmol/L Normal 136-145 [facility] Comment on above: Order Comment: Campu s: M Performed By: #### M 050.26589 #### [facility] [address] [place] [address] Urea nitrogen [Mass/Vol] 9 mg/dL Normal 7-26 [facility] Comment on above: Order Comment: Campu s: M Performed By: #### M 050.29136 #### [facility] [address] [place] [address] Urea nitrogen/Creatinine [Mass ratio] 8 mg/mg Low 15-24 [facility] Comment on above: Order Comment: Campu s: M Performed By: #### M 050.29716 #### [facility] [address] [place] [address] GFR ESTon 02-26-2021 IF AMER 56 Normal [facility] Comment on above: Order Comment: Campu s: M Performed By: #### M 050.81787 #### [facility] [address] [place], [place] [id number] IF non-AFR AMER 47 Normal [facility] Comment on above: Order Comment: Campu s: M Performed By: #### M 050.11562 #### [facility] [address] [place] [address] GLUCOSE METERon 02-26-2021 Glucose [Mass/Vol] 133 mg/dL High 85-125 [facility] Glucose [Mass/Vol] 144 mg/dL High 85-125 [facility] Glucose [Mass/Vol] 146 mg/dL High 85-125 [facility] Glucose [Mass/Vol] 158 mg/dL High 85-125 [facility] Glucose [Mass/Vol] 181 mg/dL High 85-125 [facility] MAGNESIUMon 02-26-2021 Magnesium [Mass/Vol] 1.6 mg/dL Normal 1.6-2.6 [facility] Comment on above: Order Comment: Campu s: M Performed By: #### M 050.00498 #### [facility] [address] [place] [address] PROG IMS 02-26-2021 PROG [facility] Patient Name: YARA BETH [address] [place] [address] Date of : [address] [address] Unit Number: [id number] Progress Note-Hospitalist Patient Status: ADM IN Attending Doctor: Skyler Fregoso DO Service Date: 02/26/21 1428 Chief Complaint Chief Complaint Neck mass. Subjective S: (2 ROS minimum) No fever chills nausea vomiting still have drainage tube in the right side of the neck for mass Objective (ROS) Nursing Vitals Vital Signs (Last) Result Date Time Pulse Ox 93 02/26 715 B/P 140/77 02/26 715 Temp 97.5 02/26 715 Pulse 81 02/26 715 Resp 20 02/26 715 O2 Delivery NASAL CANNULA 02/23 0046 O2 Flow Rate 2 02/22 1826 B/P Mean 83 02/21 1500 Physical Exam: General: Patient is alert and oriented x3 and is in no acute respiratory distress. HEENT no eye congestion no ear discharge. Neck right neck mass with drainage tube Lungs: Clear to auscultation, no wheezing, rales, or rhonchi. Cardiac: S1-S2 within normal limits Abdomen: Soft, nontender, nondistended. Obese Extremities: No cyanosis Skin: No rashes or breakdown. Neurologic: Cranial nerves from II-XII intact grossly. Psych normal affect. Lymphatic system, no submandibular or anterior cervical lymphadenopathy. Diagnostic Data: Lab 24hr (CBC/BMP [facility]) 02/26/21 1233: Whole Bld Glucose 146 H 02/26/21 0813: Whole Bld Glucose 158 H 02/26/21 0703: [Embedded Image Not Available] Anion Gap 3 L, Est GFR ( Amer) 56, Est GFR (Non-Af Amer) 47, BUN/Creatinine Ratio 8 L, Glucose 167 H, Total Calcium 9.1, Magnesium 1.6 02/25/21 2135: Whole Bld Glucose 181 H 02/25/21 1700: Whole Bld Glucose 155 H Assessment and Plan Conclusion 1. Neck mass Right neck mass/abscess Microfollicular Streptococcus/Staph epidermidis right neck cellulitis Diabetes mellitus type 2 Morbid obesity GERD Plan *Continue IV antibiotics as per infection disease, recommended oral antibiotics upon discharge. Meantime continue drainage tube, waiting for ENT to do a drainage tube before discharge patient home *continue monitoring glucose, glucose better controlled, continue home medications and sliding scale insulin *Continue current home medications monitor vitals *Check CBC BMP magnesium for tomorrow *DVT prophylaxis heparin subcutaneous Disclaimer This dictation was created using voice recognition software. Phonetic and/or minor grammatical errors may exist. eSign Date and Time Melanie Carmona MD Verified/Reviewed by 02/26/21 1436 [facility] Progress Note-Hospitalist [facility] Shruthi PROG.ENTon 02-26-2021 PROG.ENT [facility] Patient Name: YARA BETH [address] Date of : [address] [address] Unit Number: [id number] Progress Note-ENT Patient Status: ADM IN Attending Doctor: Skyler Fregoso DO Service Date: 02/26/21 1058 Progress Note - ENT Subjective Subjective: (2 ROS minimum) Yara is a 60 year old female who was admitted for neck mass. Today she states low appetite, however she was able to eat and drink breakfast this morning. She notes neck pain and rates it 3-4/10. She describes pain as achy. She notes some lightheadedness as well. She denies N/V, fever, chills, SOB, diffculty breathing, difficulty swallowing or painful swallow. Objective Nursing Vitals Vital Signs (Last) Result Date Time Pulse Ox 93 02/26 715 B/P 140/77 02/26 715 Temp 97.5 02/26 715 Pulse 81 02/26 715 Resp 20 02/26 715 O2 Delivery NASAL CANNULA 02/23 0046 O2 Flow Rate 2 02/22 1826 B/P Mean 83 02/21 1500 VS reviewed. Afebrile. Pulse ox 93%. BP elevated at 140/77. Physical Exam NAD. Patient is walking around the room without difficulty and sitting up in bed during examination. No respiratory distress or stridor. Voice is normal. The area of induration along the right neck continues to remain stable with minimal erythema overlying the skin. MALCOLM drain is intact and there is purulent discharge leaking along the outside of the drain and into the bulb of the drain. Sutures are intact. Oropharynx is within normal limits with 2+ cryptic tonsils present bilaterally. No exudate or erythema present. Diagnostic Data Lab 24hr (CBC/BMP [facility]) 02/26/21 0813: Whole Bld Glucose 158 H 02/26/21 0703: [Embedded Image Not Available] Anion Gap 3 L, Est GFR ( Amer) 56, Est GFR (Non-Af Amer) 47, BUN/Creatinine Ratio 8 L, Glucose 167 H, Total Calcium 9.1, Magnesium 1.6 02/25/21 2135: Whole Bld Glucose 181 H 02/25/21 1700: Whole Bld Glucose 155 H 02/25/21 1200: Whole Bld Glucose 152 H Labs reviewed. Assessment/Plan Conclusion 1. Localized swelling, mass or lump of neck Mirella is a 60 year old female who is slowling improving on IV antibiotics for neck mass. Unfortunately due to her diabetes, we are unable to start IV steroids that would help reduce the swelling dramatically. I recommend continuing IV unasyn and allowing MALCOLM drain to pull excess drainage from the site. We will continue to follow. 02/02/21 Disclaimer This dictation was created using voice recognition software. Phonetic and/or minor grammatical errors may exist. eSign Date and Time Ruchi Cerda PAC Verified/Reviewed by 02/26/21 1104 Fabien Saleh MD [facility] Progress Note-ENT [facility] PROG.NOTEon 02-26-2021 PROG.NOTE [facility] Patient Name: YARA BETH [address] Date of : [address] [address] Unit Number: [id number] Progress Note-Physician Patient Status: ADM IN Attending Doctor: Skyler Fregoso DO Service Date: 02/26/21 1300 Subjective S: (2 ROS minimum) Feeling better, no fever, no n/v/d. Objective (ROS) Nursing Vitals Vital Signs (Last) Result Date Time Pulse Ox 93 02/26 0715 B/P 140/77 02/26 0715 Temp 97.5 02/26 715 Pulse 81 02/26 0715 Resp 20 02/26 0715 O2 Delivery NASAL CANNULA 02/23 0046 O2 Flow Rate 2 02/22 1826 B/P Mean 83 02/21 1500 Physical Exam Neurological / Psychiatric Alert Neck drain in place, swelling much improved Respiratory Normal Breathing Effort, Clear Lungs Cardiovascular Heart RRR Gastrointestinal Non Tender, No Mass Skin No Rash Diagnostic Data: Lab 24hr (CBC/BMP [facility]) 02/26/21 0813: Whole Bld Glucose 158 H 02/26/21 0703: [Embedded Image Not Available] Anion Gap 3 L, Est GFR ( Amer) 56, Est GFR (Non-Af Amer) 47, BUN/Creatinine Ratio 8 L, Glucose 167 H, Total Calcium 9.1, Magnesium 1.6 02/25/21 2135: Whole Bld Glucose 181 H 02/25/21 1700: Whole Bld Glucose 155 H Assessment and Plan Conclusion 1. Neck mass ENT following, bx done 02/20, path neg. Taken to OR 02/[address] Shannon for IandD of abscess. Completed covid vaccine, pcr neg here. On unasyn. Surg cx with strep, CoNS, diphtheroids. Drain in place. Ok for d/c home on 10 more days po doxy 100mg bid and augmentin 875mg bid. Will follow as needed, d/w nursing, wrote rx 2. Diabetes mellitus Disclaimer This dictation was created using voice recognition software. Phonetic and/or minor grammatical errors may exist. eSign Date and Time Nino De Jesus MD Verified/Reviewed by 02/26/21 1302 [facility] SURG TISSUEon 02-26-2021 SURG TISSUE GRAM STAIN RARE WBC'S FEW GRAM POSITIVE COCCI ORGANISM 1: MICROAEROPHILIC STREPTOCOCCUS QUANTITATION MODERATE ID TO FOLLOW NOT VIABLE FOR SENSITIVITY ORGANISM 2: STAPHYLOCOCCUS EPIDERMIDIS QUANTITATION RARE STAPHYLOCOCCUS EPIDERMIDIS: REACTION AMPICILLIN >8 R AMP/SULBACTAM (UNASYN) <8/4 R AUGMENTIN (AMOX/K CLAVULANATE) <4/2 R AZITHROMYCIN >4 R CEFAZOLIN <8 R CLINDAMYCIN >4 R ERYTHROMYCIN >4 R GENTAMICIN <4 S LINEZOLID <2 S OXACILLIN >2 R PENICILLIN >8 R RIFAMPIN <1 S TETRACYCLINE <4 S TRIMETH/SULFA <0.5/9.5 S VANCOMYCIN 1 S MEROPENEM >8 R DAPTOMYCIN <1 S [facility] Comment on above: Order Comment: Heidi s: M: SPEC 4 AEROBIC SWAB RIGHT NECK MASS Performed By: #### M 100.20145 ####[facility] [id number] [place], [place] [address]Vp# [phone] ANAER CULTUREon 02-25-2021 ANAER CULTURE RESULT NO GROWTH OF ANAEROBES [facility] Comment on above: Order Comment: Heidi s: M Performed By: #### L 500.69502, L500.98371, L500.74956 #### [facility] [address] [place] [address] BMPon 02-25-2021 Anion gap [Moles/Vol] 3 mmol/L Low 5-16 [facility] Comment on above: Order Comment: Campu s: M Performed By: #### L 500.90627, L500.48284, L500.87329 ####[facility] [id number] [place], [place] [address]Ir# [phone] Calcium [Mass/Vol] 8.7 mg/dL Normal 8.5-10.5 [facility] Comment on above: Order Comment: Campu s: M Result Comment: NOTE NEW NORMAL RANGE DUE TO REAGENT CHANGE Performed By: #### L 500.26733, L500.71106, L500.76876 ####[facility] [id number] [place], [place] [address]Px# [phone] Chloride [Moles/Vol] 109 mmol/L High 98-107 [facility] Comment on above: Order Comment: Campu s: M Performed By: #### L 500.19330, L500.84674, L500.82438 ####[facility] [id number] [place], [place] [address]Dm# [phone] CO2 [Moles/Vol] 30.0 mmol/L Normal 21-32 [facility] Comment on above: Order Comment: Campu s: M Performed By: #### L 500.27515, L500.81288, L500.81834 ####[facility] [id number] [place], [place] [address]Es# [phone] Creatinine [Mass/Vol] 1.17 mg/dL High 0.510- 0.95 0 [facility] Comment on above: Order Comment: Campu s: M Result Comment: Cori ents receiving either N-Acetylcysteine (NAC) or Metamizole prior to venipuncture, may have falsely depressed results. Performed By: #### L 500.86621, L500.99464, L500.98999 ####[facility] [id number] [place] [id number]# [phone] Glucose [Mass/Vol] 172 mg/dL High 70-100 [facility] Comment on above: Order Comment: Campu s: M Result Comment: 70-1 00- Normal Fasting; 100-125 Impaired Fasting; greater than 126 on more than one result- Diabetes. ADA guidelines. Results may be falsely elevated after the administration of Sulfapyridine. Results may be falsely depressed after the administration of Sulfasalazine. Performed By: #### L 500.84299, L500.33801, L500.41902 ####[facility] [id number] [place], [place] [address]Qk# [phone] Potassium [Moles/Vol] 4.0 mmol/L Normal 3.5-5.1 [facility] Comment on above: Order Comment: Campu s: M Result Comment: Slig ht Hemolysis, Result may be affected. Performed By: #### L 500.80451, L500.26905, L500.55622 ####[facility] [id number] [place], [place] [address]Ej# [phone] Sodium [Moles/Vol] 142 mmol/L Normal 136-145 [facility] Comment on above: Order Comment: Campu s: M Performed By: #### L 500.68280, L500.98325, L500.25063 ####[facility] [id number] [place], [place] [address]Uu# [phone] Urea nitrogen [Mass/Vol] 9 mg/dL Normal 7-26 [facility] Comment on above: Order Comment: Campu s: M Performed By: #### L 500.67256, L500.19927, L500.66288 ####[facility] [id number] [place], [place] [address]Vk# [phone] Urea nitrogen/Creatinine [Mass ratio] 8 mg/mg Low 15-24 [facility] Comment on above: Order Comment: Campu s: M Performed By: #### L 500.86942, L500.45403, L500.21001 ####[facility] [id number] [place], [place] [address]Jc# [phone] GFR ESTon 02-25-2021 IF AMER 57 [facility] Comment on above: Order Comment: Campu s: M Performed By: #### L 500.20484, L500.22985, L500.31987 ####[facility] [id number] [place], [place] [address]Cj# [phone] IF non-AFR AMER 48 [facility] Comment on above: Order Comment: Campu s: M Performed By: #### L 500.27379, L500.96020, L500.97957 ####[facility] [id number] [place], [place] [address]Cd# [phone] GLUCOSE METERon 02-25-2021 Glucose [Mass/Vol] 155 mg/dL High 85-125 [facility] Glucose [Mass/Vol] 152 mg/dL High 85-125 [facility] Glucose [Mass/Vol] 158 mg/dL High 85-125 [facility] 02-25-2021 Magnesium [Mass/Vol] 1.4 mg/dL Low 1.6-2.6 [facility] Comment on above: Order Comment: Campu s: M Performed By: #### L 500.06426, L500.69633, L500.86756 ####[facility] [id number] [place], [place] [address]Cs# [phone] PROG IMSon 02-25-2021 PROG [facility] Patient Name: YARA BETH [address] [facility] [address] Date of : [address] [address] Unit Number: [id number] Progress Note-Hospitalist Patient Status: ADM IN Attending Doctor: Skyler Fregoso DO Service Date: 02/25/21 183 Chief Complaint Chief Complaint Neck mass. Subjective S: (2 ROS minimum) No complaint. No chest pain, dyspnea, nausea, or vomiting. Noticing less pain in her neck. Objective (ROS) Nursing Vitals Vital Signs (Last) Result Date Time Pulse Ox 93 02/25 1520 B/P 120/71 02/25 1520 Temp 98.1 02/25 1520 Pulse 97 02/25 1520 Resp 18 02/25 1520 O2 Delivery NASAL CANNULA 02/23 0046 O2 Flow Rate 2 02/22 1826 B/P Mean 83 02/21 1500 General Appearance Sitting up in bed, comfortable, nontoxic. Physical Exam Neurological / Psychiatric Alert, Orientation X3, Affect Normal, Cranial Nerves Intact HEENT No Trauma, EOMI, Moist mucous membranes, no scleral icterus Neck Drain remains in place Respiratory Normal Breathing Effort, No audible wheeze, no cough, no tachypnea Gastrointestinal No obvious significant distention, no vomiting, no hematemesis, no diarrhea Diagnostic Data: Lab 24hr (CBC/BMP [facility]) 02/25/21 1700: Whole Bld Glucose 155 H 02/25/21 1200: Whole Bld Glucose 152 H 02/25/21 0749: Whole Bld Glucose 158 H 02/25/21 0644: [Embedded Image Not Available] Anion Gap LESS THAN 3 L, Est GFR ( Amer) 57, Est GFR (Non-Af Amer) 48, BUN/ Creatinine Ratio 8 L, Glucose 172 H, Total Calcium 8.7, Magnesium 1.4 L 02/24/212110: Whole Bld Glucose 188 H Assessment and Plan Conclusion 1. Neck mass Neck mass concerning for possible hematoma malignancy versus infectious etiology. IV antibiotics Appreciate assistance from ENT and ID Patient has been planned for IR drainage of neck mass We will await pathology results Restart home medications Monitor glucose A.m. labs Full code 2. Diabetes mellitus 3. GERD (gastroesophageal reflux disease) 4. Hepatic steatosis 52-year-old female with medical history of diabetes gastroesophageal reflux disease hepatic steatosis thrombocytopenia. Patient presents the hospital with complaints of right neck mass patient seen outpatient ENT recommended evaluation in the hospital. In the hospital patient was found to have fluid-filled collection 7 cm on the right neck around the sternocleidomastoid muscle. Patient empirically started on IV antibiotics. Findings on imaging are suggestive of hematoma. Patient was seen by ENT recommending for IR drainage of the region with results sent to pathology. Patient denies fevers chills nausea vomiting. 02/20/2021: Dr. Graf from interventional radiology requested for nursing to contact me regarding symptoms Yara incurred after undergoing the neck biopsy in his department. I went to go see her and Dr. Graf was at the bedside. He explained that upon biopsy, purulent material was returned. About 5 minutes after the biopsy, Yara started to have vomiting. A few minutes later, she had rigors. Her temperature had increased to 99.5 F. By the time I got to the bedside, symptoms and passed and she was complaining only of feeling tired and worn out. Just as I was leaving, her lips started to quiver slightly. Dr. Tracey then called me to notify me that Yara had another episode of vomiting and rigors. This time, temperature increased to around 101 F. He had discussed this case with Dr. Deutsch from pulmonary/critical care medicine and I notified Dr. Deutsch that Yara had another episode that I would like to have her monitored in the intensive care unit. He was fully agreeable with this. I have provided transfer orders. Vomiting and rigors after the biopsy are new issues that I am addressing today. We are continuing intravenous antibiotics as per infectious disease. I concur with infectious disease and ENT. I discussed the postbiopsy events with physician head start assistant teacher Zaida and Dr. Saleh from ENT. I called and updated Dr. De Jesus from infectious disease as well. We will continue Zosyn and vancomycin while awaiting culture results. 02/21/2021: Has received a couple of IV fluid boluses overnight and this morning for borderline hypotension. Blood pressure is currently improved and Yara has been cleared for transfer out of the intensive care unit by pulmonary/critical care medicine. I agree that she is stable for transfer to the medical floor. She remains on broad-spectrum antibiotics with Zosyn and vancomycin. Culture from fluid obtained from the neck during biopsy yesterday is currently pending. Pathology evaluation is pending as well. I concur with pulmonary/critical care medicine, infectious disease, and ENT. I have rounded on Yara with nursing. 02/22/2021: Laboratory studies this morning revealed hypomagnesemia with a magnesium level of 1.3. This is being supplem (more content not included)... [facility] Progress Note-Hospitalist Normal [facility] PROG.ENTon 02-25-2021 PROG.ENT [facility] Patient Name: YARA BETH [address] [facility] Date of : [address] [place], [place] [address] Unit Number: [id number] Progress Note-ENT Patient Status: ADM IN Attending Doctor: Skyler Fregoso DO Service Date: 02/25/21 1113 Progress Note - ENT Subjective Subjective: (2 ROS minimum) No new complaints Objective Nursing Vitals Vital Signs (Last) Result Date Time Pulse Ox 95 02/25 0815 B/P 121/70 02/25 0815 Temp 97.9 02/25 0815 Pulse 92 02/25 0815 Resp 18 02/25 0815 O2 Delivery NASAL CANNULA 02/23 0046 O2 Flow Rate 2 02/22 1826 B/P Mean 83 02/21 1500 Physical Exam The area of induration in the right neck remained stable. There is less erythema of the overlying skin. There is still a moderate amount of purulent discharge coming through the Dariusz-Hreman drain into the bulb as well as leaking around the outside of the drain tubing. Suture line remains intact. Assessment/Plan Conclusion 1. Localized swelling, mass or lump of neck On Sun 2:28p Feb 24, 2021 FABIEN SALEH wrote Patient continues to slowly improve. This could definitely be accelerated with IV steroids but her diabetes precludes this as a therapeutic option. Continue Unasyn. Continue Dariusz-Herman drain. Will follow. 02/02/21 Disclaimer This dictation was created using voice recognition software. Phonetic and/or minor grammatical errors may exist. eSign Date and Time Fabien Saleh MD Verified/Reviewed by 02/25/21 1116 Normal [facility] Progress Note-ENT Normal [facility] CDIF PCRon 02-24-2021 CDIF PCR Positive High NEGATIVE [facility] Comment on above: Order Comment: Heidi s: M Result Comment: A po sitive C.Difficile molecular test does not differentiate between C.Difficile disease and carriers of C.Difficile. Use clinical judgement and reflex testing to determine treatment options/disease state. Performed By: #### L 200.44152 #### [facility] [address] [place] [address] CDIFF AG/TOXINon 02-24-2021 CDIFF AG/TOXIN Negative Normal NEGATIVE [facility] Comment on above: Order Comment: Heidi s: M Result Comment: Posi tive for toxigenic C.Difficile gene but active toxin production NOT detected. May be a colonized carrier, or toxin level is below the limit of detection. CRITICAL VALUE(S) VERIFIED AND CALLED TO AND READ BACK BY MALLIKA ECHEVERRIA AT 1150 02/24/21 BY ANGIE MASON Performed By: #### L 200.05682 #### [facility] [place] [address] GLUCOSE METERon 02-24-2021 Glucose [Mass/Vol] 188 mg/dL High 85-125 [facility] Glucose [Mass/Vol] 285 mg/dL High 85-125 [facility] Glucose [Mass/Vol] 198 mg/dL High 85-125 [facility] Glucose [Mass/Vol] 139 mg/dL High 85-125 [facility] PROG IMS 02-24-2021 PROG [facility] Patient Name: YARA BETH [address] [facility] [address] Date of : [address] [address] Unit Number: [id number] Progress Note-Hospitalist Patient Status: ADM IN Attending Doctor: Skyler Fregoso DO Service Date: 02/24/21 1733 Chief Complaint Chief Complaint Neck mass. Subjective S: (2 ROS minimum) No complaint. No chest pain, dyspnea, nausea, or vomiting. Objective (ROS) Nursing Vitals Vital Signs (Last) Result Date Time Pulse Ox 97 02/24 1555 B/P 147/76 02/24 1555 Temp 97.8 02/24 1555 Pulse 100 02/24 1555 Resp 18 02/24 1555 O2 Delivery NASAL CANNULA 02/23 0046 O2 Flow Rate 2 02/22 1826 B/P Mean 83 02/21 1500 General Appearance Sitting up in bed, comfortable, nontoxic. Physical Exam Neurological / Psychiatric Alert, Orientation X3, Affect Normal, Cranial Nerves Intact, Mentating well HEENT No Trauma, EOMI, Moist mucous membranes, no scleral icterus Neck Supple, Area of enlargement over the right neck seems to be steadily decreasing in size Respiratory Normal Breathing Effort, No audible wheeze, no cough, no tachypnea Gastrointestinal No obvious significant distention, no vomiting, no hematemesis, no diarrhea Diagnostic Data: Lab 24hr (CBC/BMP [facility]) 02/24/21 1625: Whole Bld Glucose 285 H 02/24/21 1117: Whole Bld Glucose 198 H 02/24/21 0831: Stl C.difficile Tox PCR POSITIVE see comment H, C. difficile Tox (PCR) NEGATIVE 02/24/21 0729: Whole Bld Glucose 139 H 02/23/21 2044: Whole Bld Glucose 246 H Assessment and Plan Conclusion 1. Neck mass Neck mass concerning for possible hematoma malignancy versus infectious etiology. IV antibiotics Appreciate assistance from ENT and ID Patient has been planned for IR drainage of neck mass We will await pathology results Restart home medications Monitor glucose A.m. labs Full code 2. Diabetes mellitus 3. GERD (gastroesophageal reflux disease) 4. Hepatic steatosis 52-year-old female with medical history of diabetes gastroesophageal reflux disease hepatic steatosis thrombocytopenia. Patient presents the hospital with complaints of right neck mass patient seen outpatient ENT recommended evaluation in the hospital. In the hospital patient was found to have fluid-filled collection 7 cm on the right neck around the sternocleidomastoid muscle. Patient empirically started on IV antibiotics. Findings on imaging are suggestive of hematoma. Patient was seen by ENT recommending for IR drainage of the region with results sent to pathology. Patient denies fevers chills nausea vomiting. 02/20/2021: Dr. Graf from interventional radiology requested for nursing to contact me regarding symptoms Yara incurred after undergoing the neck biopsy in his department. I went to go see her and Dr. Graf was at the bedside. He explained that upon biopsy, purulent material was returned. About 5 minutes after the biopsy, Yara started to have vomiting. A few minutes later, she had rigors. Her temperature had increased to 99.5 F. By the time I got to the bedside, symptoms and passed and she was complaining only of feeling tired and worn out. Just as I was leaving, her lips started to quiver slightly. Dr. Tracey then called me to notify me that Yara had another episode of vomiting and rigors. This time, temperature increased to around 101 F. He had discussed this case with Dr. Deutsch from pulmonary/critical care medicine and I notified Dr. Deutsch that Yara had another episode that I would like to have her monitored in the intensive care unit. He was fully agreeable with this. I have provided transfer orders. Vomiting and rigors after the biopsy are new issues that I am addressing today. We are continuing intravenous antibiotics as per infectious disease. I concur with infectious disease and ENT. I discussed the postbiopsy events with physician head start assistant teacher Zaida and Dr. Saleh from ENT. I called and updated Dr. De Jesus from infectious disease as well. We will continue Zosyn and vancomycin while awaiting culture results. 02/21/2021: Has received a couple of IV fluid boluses overnight and this morning for borderline hypotension. Blood pressure is currently improved and Yara has been cleared for transfer out of the intensive care unit by pulmonary/critical care medicine. I agree that she is stable for transfer to the medical floor. She remains on broad-spectrum antibiotics with Zosyn and vancomycin. Culture from fluid obtained from the neck during biopsy yesterday is currently pending. Pathology evaluation is pending as well. I concur with pulmonary/critical care medicine, infectious disease, and ENT. I have rounded on Yara with nursing. 02/22/2021: Laboratory studies this morning revealed hypomagnesemia with a magnesium level of 1.3. This is being supplemented intravenously. This is a new issue that I am addre (more content not included)... [facility] Progress Note-Hospitalist [facility] PROG.ENTon 02-24-2021 PROG.ENT [facility] Patient Name: YARA BETH A [address] [employer] [address] Date of : [address] [address] Unit Number: [id number] Progress Note-ENT Patient Status: ADM IN Attending Doctor: Skyler Fregoso DO Service Date: 02/24/21 1425 Progress Note - ENT Subjective Subjective: (2 ROS minimum) Patient has no new complaints. She and her visiting family members feel that the swelling continues to improve in the right neck. Objective Nursing Vitals Vital Signs (Last) Result Date Time Pulse Ox 93 02/24 0846 B/P 136/82 02/24 0846 Temp 97.8 02/24 0846 Pulse 92 02/24 0846 Resp 20 02/24 0846 O2 Delivery NASAL CANNULA 02/23 0046 O2 Flow Rate 2 02/22 1826 B/P Mean 83 02/21 1500 Physical Exam There is minimal purulent fluid draining through the Dariusz-Herman drain. There is no longer any bleeding on the skin and therefore no need to bandage the neck at this point. The amount of firm induration in the right upper neck is definitely improving but still quite significant in size. Approximately 6 cm in diameter. Assessment/Plan Conclusion 1. Localized swelling, mass or lump of neck Patient continues to slowly improve. This could definitely be accelerated with IV steroids but her diabetes precludes this as a therapeutic option. Continue Unasyn. Continue Dariusz-Herman drain. Will follow. 02/02/21 Disclaimer This dictation was created using voice recognition software. Phonetic and/or minor grammatical errors may exist. eSign Date and Time Fabien Saleh MD Verified/Reviewed by 02/24/21 1428 [facility] Progress Note-ENT [facility] SURG TISSUEon 02-24-2021 SURG TISSUE GRAM STAIN MANY WBC'S MANY GRAM POSITIVE COCCI FEW GRAM POSITIVE BACILLUS ORGANISM 1: MICROAEROPHILIC STREPTOCOCCUS QUANTITATION MODERATE ID TO FOLLOW NOT VIABLE FOR SENSITIVITY ORGANISM 2: DIPHTHEROIDS QUANTITATION FEW ID TO FOLLOW NOT VIABLE FOR SENSITIVITY Normal [facility] Comment on above: Order Comment: Campu s: M Performed By: #### L 500.65812, L500.90496, L500.84143 #### [facility] [address] [place] [id number] [facility] Anion gap [Moles/Vol] 7 mmol/L Normal 5-16 [facility] Comment on above: Order Comment: Campu s: M Performed By: #### L 500.72105, L500.68651, L500.72277 #### [facility] [place] [address] Calcium [Mass/Vol] 8.3 mg/dL Low 8.5-10.5 [facility] Comment on above: Order Comment: Campu s: M Result Comment: NOTE NEW NORMAL RANGE DUE TO REAGENT CHANGE Performed By: #### L 500.12846, L500.58316, L500.71951 #### [facility] [address] [place] [address] Chloride [Moles/Vol] 105 mmol/L Normal 98-107 [facility] Comment on above: Order Comment: Campu s: M Performed By: #### L 500.49399, L500.75106, L500.95750 #### [facility] [address] [place] [address] CO2 [Moles/Vol] 29.0 mmol/L Normal 21-32 [facility] Comment on above: Order Comment: Campu s: M Performed By: #### L 500.76213, L500.55930, L500.58458 #### [facility] [address] [place] [address] Creatinine [Mass/Vol] 1.30 mg/dL High 0.510- 0.95 0 [facility] Comment on above: Order Comment: Campu s: M Result Comment: Cori ents receiving either N-Acetylcysteine (NAC) or Metamizole prior to venipuncture, may have falsely depressed results. Performed By: #### L 500.22276, L500.51356, L500.61993 #### [facility] [address] [place] [address] Glucose [Mass/Vol] 135 mg/dL High 70-100 [facility] Comment on above: Order Comment: Campu s: M Result Comment: 70-1 00- Normal Fasting; 100-125 Impaired Fasting; greater than 126 on more than one result- Diabetes. ADA guidelines. Results may be falsely elevated after the administration of Sulfapyridine. Results may be falsely depressed after the administration of Sulfasalazine. Performed By: #### L 500.01415, L500.13800, L500.73435 #### [facility] [address] [place], [place] [id number] Potassium [Moles/Vol] 4.0 mmol/L Normal 3.5-5.1 [facility] Comment on above: Order Comment: Campu s: M Result Comment: Slig ht Hemolysis, Result may be affected. Performed By: #### L 500.82429, L500.57838, L500.83089 #### [facility] [address] [place] [address] Sodium [Moles/Vol] 141 mmol/L Normal 136-145 [facility] Comment on above: Order Comment: Campu s: M Performed By: #### L 500.01753, L500.21784, L500.52239 #### [facility] [address] [place] [address] Urea nitrogen [Mass/Vol] 14 mg/dL Normal 7-26 [facility] Comment on above: Order Comment: Campu s: M Performed By: #### L 500.06060, L500.14128, L500.20596 #### [facility] [address] [place] [address] Urea nitrogen/Creatinine [Mass ratio] 11 mg/mg Low 15-24 [facility] Comment on above: Order Comment: Campu s: M Performed By: #### L 500.19170, L500.58302, L500.93833 #### [facility] [address] [place], [place] [id number] CBC W/DIFFon 02-23-2021 ATYP LYMPH % 0.0 % Normal [facility] Comment on above: Order Comment: Campu s: M Performed By: #### L 550.02668 #### [facility] [address] [place], [place] [address] BAND ABS 0.37 K/CU MM Normal [facility] Comment on above: Order Comment: Campu s: M Performed By: #### L 550.30765 #### [facility] [address] [place] [address] Band form neutrophils/100 WBC (Bld) 5.0 % Normal 0-7 [facility]: Order Comment: Campu s: M Performed By: #### L 550.94603 #### [facility] [address] [place], [place] [address] Basophils/100 WBC (Bld) 0.0 % Normal 0-2 [facility] Comment on above: Order Comment: Campu s: M Performed By: #### L 550.57117 #### [facility] [address] [place] [address] BLAST % 0.0 % Normal 0 [facility] Comment on above: Order Comment: Campu s: M Performed By: #### L 550.46460 #### [facility] [address] [place] [address] EOS ABS 0.07 K/CU MM Normal 0-0.5 [facility] Comment on above: Order Comment: Campu s: M Performed By: #### L 550.04860 #### [facility] [address] [place], [place] [address] Eosinophils/100 WBC (Bld) 1.0 % Normal 0-5 [facility] Comment on above: Order Comment: Campu s: M Performed By: #### L 550.72391 #### [facility] [address] [place], [place] [address] Erythrocyte distribution width (RBC) [Ratio] 13.1 % Normal 11-14.5 [facility] Comment on above: Order Comment: Campu s: M Performed By: #### L 550.07732 #### [facility] [address] [place], [place] [address] Hematocrit (Bld) [Volume fraction] 34.5 % Low 35.0-47.0 [facility] Comment on above: Order Comment: Campu s: M Performed By: #### L 550.35979 #### [facility] [address] [place] [address] Hemoglobin (Bld) [Mass/Vol] 11.5 g/dL Normal 11.5-15.5 [facility] Comment on above: Order Comment: Campu s: M Performed By: #### L 550.78134 #### [facility] [address] [place] [address] LYMPH ABS 1.18 K/CU MM Normal 0.9-4.4 [facility] Comment on above: Order Comment: Campu s: M Performed By: #### L 550.83529 #### [facility] [address] [place] [address] Lymphocytes/100 WBC (Bld) 16.0 % Low 20-40 [facility] Comment on above: Order Comment: Campu s: M Performed By: #### L 550.80441 #### [facility] [address] [place] [address] MCHC (RBC) [Mass/Vol] 33.3 g/dL Normal 32.0-36.0 [facility] Comment on above: Order Comment: Campu s: M Performed By: #### L 550.49908 #### [facility] [address] [place] [address] MCV (RBC) [Entitic vol] 95.6 fL Normal 80.0-99.0 [facility] Comment on above: Order Comment: Campu s: M Performed By: #### L 550.40700 #### [facility] [address] [place] [address] META % 0.0 % Normal [facility] Comment on above: Order Comment: Campu s: M Performed By: #### L 550.58151 #### [facility] [address] [place], [place] [address] MONO ABS 0.37 K/CU MM Normal 0.1-1.1 [facility] Comment on above: Order Comment: Campu s: M Performed By: #### L 550.93613 #### [facility] [address] [place] [address] Monocytes/100 WBC (Bld) 5.0 % Normal 2-10 [facility] Comment on above: Order Comment: Campu s: M Performed By: #### L 550.44663 #### [facility] [address] [place] [address] MYELOCYTE % 0.0 % Normal [facility] Comment on above: Order Comment: Campu s: M Performed By: #### L 550.77809 #### [facility] [address] [place] [address] NC/NC NORMOCYTIC Normal [facility] Comment on above: Order Comment: Campu s: M Performed By: #### L 550.75153 #### [facility] [address] [place] [address] NEUTROPHIL ABS 5.40 K/CU MM Normal 2.0-8.3 [facility] Comment on above: Order Comment: Campu s: M Performed By: #### L 550.82603 #### [facility] [address] [place] [address] Neutrophils/100 WBC (Bld) 73.0 % Normal 45-75 [facility] Comment on above: Order Comment: Campu s: M Performed By: #### L 550.98689 #### [facility] [address] [place], [place] [id number] Nucleated RBC/100 WBC (Bld) [Ratio] 0.0 % Normal Less than 1 [facility] Comment on above: Order Comment: Campu s: M Performed By: #### L 550.82398 #### [facility] LABORATORY [address] [place] [address] OTHER % 0 % Normal [facility] Comment on above: Order Comment: Campu s: M Performed By: #### L 550.17451 #### [facility] LABORATORY [address] [place] [address] Platelet mean volume (Bld) [Entitic vol] 10.3 fL Normal 9.4-12.4 [facility] Comment on above: Order Comment: Campu s: M Performed By: #### L 550.88363 #### [facility] LABORATORY [address] [place] [address] PLT 60 K/CU MM Low 150-450 [facility] Comment on above: Order Comment: Campu s: M Result Comment: Conf irmed by slide estimate. Performed By: #### L 550.49880 #### [facility] LABORATORY [address] [place] [address] PLT EST MOD DECREASED Normal [facility] Comment on above: Order Comment: Campu s: M Performed By: #### L 550.81958 #### [facility] LABORATORY [address] [place] [address] POLY 1+ Normal [facility] Comment on above: Order Comment: Campu s: M Performed By: #### L 550.63993 #### [facility] LABORATORY [address] [place] [address] PROMYELOCYTE % 0.0 % Normal [facility] Comment on above: Order Comment: Campu s: M Performed By: #### L 550.23085 #### [facility] LABORATORY [address] [place] [address] RBC 3.61 M/CU MM Low 3.90-5.30 [facility] Comment on above: Order Comment: Campu s: M Performed By: #### L 550.69793 #### [facility] LABORATORY [address] [place] [address] 13238 WBC 7.4 K/CUMM Normal 4.5-11.0 [facility] Comment on above: Order Comment: Campu s: M Result Comment: Conf meghacarissa by slide estimate. Performed By: #### L 550.38980 #### [facility] LABORATORY [address] [place], [place] [id number] GFR ESTon 02-23-2021 IF AMER 51 Normal [facility] Comment on above: Order Comment: Campu s: M Performed By: #### L 500.81417, L500.56644, L500.50724 #### [facility] LABORATORY [address] [place] [address] 52982 IF non-AFR AMER 42 Normal [facility] Comment on above: Order Comment: Campu s: M Performed By: #### L 500.76353, L500.40019, L500.36241 #### [facility] LABORATORY [address] [place] [address] 37579 GLUCOSE METERon 02-23-2021 Glucose [Mass/Vol] 246 mg/dL High 85-125 [facility] [place] Glucose [Mass/Vol] 137 mg/dL High 85-125 [facility] [place] Glucose [Mass/Vol] 238 mg/dL High 85-125 [facility] [place] Glucose [Mass/Vol] 114 mg/dL Normal 85-125 [facility] 02-23-2021 Magnesium [Mass/Vol] 1.9 mg/dL Normal 1.6-2.6 [facility] Comment on above: Order Comment: Campu s: M Performed By: #### L 500.24026, L500.72042, L500.19618 #### [facility] LABORATORY [address] [place] [address] PROG IMSon 02-23-2021 PROG [facility] Patient Name: YARA BETH [address] [place] [address] Date of : [address] [place] [id number] Unit Number: [id number] Progress Note-Hospitalist Patient Status: ADM IN Attending Doctor: Skyler Fregoso DO Service Date: 02/23/21 1840 Chief Complaint Chief Complaint Neck mass. Subjective S: (2 ROS minimum) No new complaint. No chest pain, dyspnea, nausea, or vomiting. Her friend, Oliva, is at the bedside. Oliva states that Yara's neck is looking much better. Objective (ROS) Nursing Vitals Vital Signs (Last) Result Date Time Pulse Ox 94 02/23 1539 B/P 100/48 02/23 1539 Temp 97.9 02/23 1539 Pulse 98 02/23 1539 Resp 16 02/23 1539 O2 Delivery NASAL CANNULA 02/23 0046 O2 Flow Rate 2 02/22 1826 B/P Mean 83 02/21 1500 General Appearance Sitting up in bed, comfortable, nontoxic. Physical Exam Neurological / Psychiatric Alert, Orientation X3, Affect Normal, Cranial Nerves Intact HEENT No Trauma, EOMI, Moist mucous membranes, no scleral icterus Neck Supple Respiratory Normal Breathing Effort, No audible wheeze, no cough, no tachypnea Gastrointestinal No obvious significant distention, no vomiting, no hematemesis, no diarrhea Diagnostic Data: Lab 24hr (CBC/BMP [facility]) 02/23/21 1640: Whole Bld Glucose 137 H 02/23/21 1137: Whole Bld Glucose 238 H 02/23/21 0735: Whole Bld Glucose 114 02/23/21 0409: [Embedded Image Not Available] Anion Gap 7, Est GFR ( Amer) 51, Est GFR (Non-Af Amer) 42, BUN/Creatinine Ratio 11 L, Glucose 135 H, Total Calcium 8.3 L, Magnesium 1.9, RBC 3.61 L, MCV 95.6, MCHC 33.3, RDW 13.1, MPV 10.3, Seg Neutrophils % 73.0, Band Neutrophils % 5.0, Lymphocytes % 16.0 L, Atypical Lymphs % 0.0, Monocytes % 5.0, Eosinophils % 1.0, Basophils % 0.0, Metamyelocytes % 0.0, Myelocytes % 0.0, Promyelocytes % 0.0, Blast Cells % 0.0, Other Cells % 0, Neutrophils # 5.40, Band Neutrophils # 0.37, Lymphocytes # 1.18, Monocytes # 0.37, Eosinophils # 0.07, Nucleated RBCs 0.0, Platelet Estimate MOD DECREASED, Normocytic RBCs NORMOCYTIC, Polychromasia 1+ 02/22/212048: Whole Bld Glucose 230 H 02/22/211999: Vancomycin Trough Cancelled Assessment and Plan Conclusion 1. Neck mass Neck mass concerning for possible hematoma malignancy versus infectious etiology. IV antibiotics Appreciate assistance from ENT and ID Patient has been planned for IR drainage of neck mass We will await pathology results Restart home medications Monitor glucose A.m. labs Full code 2. Diabetes mellitus 3. GERD (gastroesophageal reflux disease) 4. Hepatic steatosis 52-year-old female with medical history of diabetes gastroesophageal reflux disease hepatic steatosis thrombocytopenia. Patient presents the hospital with complaints of right neck mass patient seen outpatient ENT recommended evaluation in the hospital. In the hospital patient was found to have fluid-filled collection 7 cm on the right neck around the sternocleidomastoid muscle. Patient empirically started on IV antibiotics. Findings on imaging are suggestive of hematoma. Patient was seen by ENT recommending for IR drainage of the region with results sent to pathology. Patient denies fevers chills nausea vomiting. 02/20/2021: Dr. Graf from interventional radiology requested for nursing to contact me regarding symptoms Yara incurred after undergoing the neck biopsy in his department. I went to go see her and Dr. Graf was at the bedside. He explained that upon biopsy, purulent material was returned. About 5 minutes after the biopsy, Yara started to have vomiting. A few minutes later, she had rigors. Her temperature had increased to 99.5 F. By the time I got to the bedside, symptoms and passed and she was complaining only of feeling tired and worn out. Just as I was leaving, her lips started to quiver slightly. Dr. Tracey then called me to notify me that Yara had another episode of vomiting and rigors. This time, temperature increased to around 101 F. He had discussed this case with Dr. Deutsch from pulmonary/critical care medicine and I notified Dr. Deutsch that Yara had another episode that I would like to have her monitored in the intensive care unit. He was fully agreeable with this. I have provided transfer orders. Vomiting and rigors after the biopsy are new issues that I am addressing today. We are continuing intravenous antibiotics as per infectious disease. I concur with infectious disease and ENT. I discussed the postbiopsy events with physician head start assistant teacher Zaida and Dr. Saleh from ENT. I called and updated Dr. De Jesus from infectious disease as well. We will continue Zosyn and vancomycin while awaiting culture results. 02/21/2021: Has received a couple of IV fluid boluses overnight and this morning for borderline hypotension. Blood pressure is currently improved and Yara has been cleare (more content not included)... [facility] Progress Note-Hospitalist [facility] PROG.ENT 02-23-2021 PROG.ENT [facility] Patient Name: YARA BETH A [address] Date of : [address] [place] [id number] Unit Number: [id number] Progress Note-ENT Patient Status: ADM IN Attending Doctor: Skyler Fregoso DO Service Date: 02/23/21 1000 Progress Note - ENT Subjective Subjective: (2 ROS minimum) Patient feels like her swelling and pain are improved today. Denies any new issues. Objective Nursing Vitals Vital Signs (Last) Result Date Time Pulse Ox 92 09/ 0700 B/P 108/63 09/ 0700 Temp 98.4 /04 0700 Pulse 91 09/04 0700 Resp 20 02/23 0700 O2 Delivery NASAL CANNULA 02/23 0046 O2 Flow Rate 2 09/03 1826 B/P Mean 83 /02 1500 Physical Exam There is marked induration of the right neck. There is minimal purulent drainage coming through the Dariusz-Herman drain. There is mild bleeding from the drain puncture site. The bandage was removed and replaced at the bedside. Diagnostic Data Lab 24hr (CBC/BMP [facility]) 02/23/21 0735: Whole Bld Glucose 114 02/23/21 0409: [Embedded Image Not Available] Anion Gap 7, Est GFR ( Amer) 51, Est GFR (Non-Af Amer) 42, BUN/Creatinine Ratio 11 L, Glucose 135 H, Total Calcium 8.3 L, Magnesium 1.9, RBC 3.61 L, MCV 95.6, MCHC 33.3, RDW 13.1, MPV 10.3, Seg Neutrophils % 73.0, Band Neutrophils % 5.0, Lymphocytes % 16.0 L, Atypical Lymphs % 0.0, Monocytes % 5.0, Eosinophils % 1.0, Basophils % 0.0, Metamyelocytes % 0.0, Myelocytes % 0.0, Promyelocytes % 0.0, Blast Cells % 0.0, Other Cells % 0, Neutrophils # 5.40, Band Neutrophils # 0.37, Lymphocytes # 1.18, Monocytes # 0.37, Eosinophils # 0.07, Nucleated RBCs 0.0, Platelet Estimate MOD DECREASED, Normocytic RBCs NORMOCYTIC, Polychromasia 1+ 02/22/21 2049: Whole Bld Glucose 230 H 02/22/21 2000: Vancomycin Trough Cancelled 02/22/21 1637: Whole Bld Glucose 183 H 02/22/21 1413: Whole Bld Glucose 143 H 02/22/21 1330: Flow Cytometry Comment Pending, Flow Cytom Path Interp Pending 02/22/21 1132: Whole Bld Glucose 156 H Recent Impressions (72hr) SPECIAL PROCEDURES - US GUIDANCE FOR NEEDLE BX 02/20 111 Report Impression - Status: SIGNED Entered: 02/20/2021 1415 IMPRESSION: Successful ultrasound-guided right neck mass biopsy. The patient developed sepsis after the biopsy. The patient will be transferred to the intensive care unit for careful monitoring. Impression By: MAYTE GRAF M.D. SPECIAL PROCEDURES - BIOPSY TRANSCATHETER X/R Malinda 02/20 1110 Report Impression - Status: SIGNED Entered: 02/20/2021 1415 IMPRESSION: Successful ultrasound-guided right neck mass biopsy. The patient developed sepsis after the biopsy. The patient will be transferred to the intensive care unit for careful monitoring. Impression By: MAYTE GRAF M.D. Assessment/Plan Conclusion 1. Localized swelling, mass or lump of neck All indications are pointing towards this being a infectious or inflammatory process and not a neoplastic disorder. Continue IV antibiotic therapy. Await culture results. 02/02/21 Disclaimer This dictation was created using voice recognition software. Phonetic and/or minor grammatical errors may exist. eSign Date and Time Fabien Saleh MD Verified/Reviewed by 02/23/21 1002 Normal [facility] BLOOD CULTUREon 02-22-2021 Bacteria identified Cx Nom (Bld) NO GROWTH AFTER 5 DAYS Normal [facility] Comment on above: Order Comment: Campu s: M Performed By: #### M 050.71962 #### [facility] LABORATORY [facility] [place] [address] Performed By: #### M 050.08404 ####[facility] [id number] [place], [place] [address]Kk# [phone] BMPon 02-22-2021 Anion gap [Moles/Vol] 4 mmol/L Low 5-16 [facility] Comment on above: Order Comment: Campu s: M Performed By: #### L 500.27106, L500.35034, L500.42873 #### [facility] LABORATORY [address] [place] [address]67 Calcium [Mass/Vol] 8.4 mg/dL Low 8.5-10.5 [facility] Comment on above: Order Comment: Campu s: M Result Comment: NOTE NEW NORMAL RANGE DUE TO REAGENT CHANGE Performed By: #### L 500.18396, L500.51781, L500.87957 #### [facility] LABORATORY [facility] [place] [address] Chloride [Moles/Vol] 107 mmol/L Normal 98-107 [facility] Comment on above: Order Comment: Campu s: M Performed By: #### L 500.18352, L500.28736, L500.35008 #### [facility] LABORATORY [facility] [place] [address] CO2 [Moles/Vol] 29.0 mmol/L Normal 21-32 [facility] Comment on above: Order Comment: Campu s: M Performed By: #### L 500.49221, L500.82147, L500.76099 #### [facility] LABORATORY [address] [place] [address] Creatinine [Mass/Vol] 1.48 mg/dL High 0.510- 0.95 0 [facility] Comment on above: Order Comment: Campu s: M Result Comment: Cori ents receiving either N-Acetylcysteine (NAC) or Metamizole prior to venipuncture, may have falsely depressed results. Performed By: #### L 500.66123, L500.77845, L500.26528 #### [facility] LABORATORY [address] [place] [address] Glucose [Mass/Vol] 195 mg/dL High 70-100 [facility] Comment on above: Order Comment: Campu s: M Result Comment: 70-1 00- Normal Fasting; 100-125 Impaired Fasting; greater than 126 on more than one result- Diabetes. ADA guidelines. Results may be falsely elevated after the administration of Sulfapyridine. Results may be falsely depressed after the administration of Sulfasalazine. Performed By: #### L 500.51651, L500.70807, L500.32882 #### [facility] LABORATORY [address] [place] [address] Potassium [Moles/Vol] 4.1 mmol/L Normal 3.5-5.1 [facility] Comment on above: Order Comment: Campu s: M Performed By: #### L 500.57606, L500.80902, L500.69486 #### [facility] LABORATORY [facility] [place] [address] Sodium [Moles/Vol] 140 mmol/L Normal 136-145 [facility] Comment on above: Order Comment: Campu s: M Performed By: #### L 500.21839, L500.37366, L500.07820 #### [facility] LABORATORY [facility] [place] [address] Urea nitrogen [Mass/Vol] 18 mg/dL Normal 7-26 [facility] Comment on above: Order Comment: Campu s: M Performed By: #### L 500.50911, L500.17699, L500.66947 #### [facility] LABORATORY [address] [place], [place] [address] Urea nitrogen/Creatinine [Mass ratio] 12 mg/mg Low 15-24 [facility] Comment on above: Order Comment: Campu s: M Performed By: #### L 500.12238, L500.19796, L500.12754 #### [facility] LABORATORY [address] [place] [address] CBC W/DIFFon 02-22-2021 BASO ABS 0.00 K/CU MM Normal 0-0.2 [facility] Comment on above: Order Comment: Campu s: M Performed By: #### M 050.14437 #### [facility] LABORATORY [address] [place] [address] Basophils/100 WBC (Bld) 0.3 % Normal 0-2 [facility] Comment on above: Order Comment: Campu s: M Performed By: #### M 050.75197 #### [facility] LABORATORY [address] [place], [place] [address] EOS ABS 0.10 K/CU MM Normal 0-0.5 [facility] Comment on above: Order Comment: Campu s: M Performed By: #### M 050.46886 #### [facility] LABORATORY [address] [place] [address] Eosinophils/100 WBC (Bld) 1.7 % Normal 0-5 [facility] Comment on above: Order Comment: Campu s: M Performed By: #### M 050.98008 #### [facility] LABORATORY [address] [place] [address] Erythrocyte distribution width (RBC) [Ratio] 12.9 % Normal 11-14.5 [facility] Comment on above: Order Comment: Campu s: M Performed By: #### M 050.49481 #### [facility] LABORATORY [address] [place] [address] Hematocrit (Bld) [Volume fraction] 33.7 % Low 35.0-47.0 [facility] Comment on above: Order Comment: Campu s: M Performed By: #### M 050.55897 #### [facility] LABORATORY [address] [place] [address] Hemoglobin (Bld) [Mass/Vol] 11.5 g/dL Normal 11.5-15.5 [facility] Comment on above: Order Comment: Campu s: M Performed By: #### M 050.79451 #### [facility] LABORATORY [address] [place] [address] IMMATR GRAN ABS 0.10 K/CU MM Normal Less than 2 [facility] Comment on above: Order Comment: Campu s: M Performed By: #### M 050.80156 #### [facility] LABORATORY [address] [place] [address] IMMATURE GRAN % 0.8 % Normal Less than 2 [facility] Comment on above: Order Comment: Campu s: M Performed By: #### M 050.83032 #### [facility] LABORATORY [address] [place] [address] LYMPH ABS 1.00 K/CU MM Normal 0.9-4.4 [facility] Comment on above: Order Comment: Campu s: M Performed By: #### M 050.77728 #### [facility] LABORATORY [address] [place], [place] [address] Lymphocytes/100 WBC (Bld) 14.8 % Low 20-40 [facility] Comment on above: Order Comment: Campu s: M Performed By: #### M 050.58317 #### [facility] LABORATORY [address] [place] [address] MCHC (RBC) [Mass/Vol] 34.1 g/dL Normal 32.0-36.0 [facility] Comment on above: Order Comment: Campu s: M Performed By: #### M 050.40609 #### [facility] LABORATORY [address] [place] [address] MCV (RBC) [Entitic vol] 93.9 fL Normal 80.0-99.0 [facility] Comment on above: Order Comment: Campu s: M Performed By: #### M 050.92937 #### [facility] LABORATORY [address] [place] [address] MONO ABS 0.60 K/CU MM Normal 0.1-1.1 [facility] Comment on above: Order Comment: Campu s: M Performed By: #### M 050.77784 #### [facility] LABORATORY [address] [place] [address] Monocytes/100 WBC (Bld) 8.6 % Normal 2-10 [facility] Comment on above: Order Comment: Campu s: M Performed By: #### M 050.69817 #### [facility] LABORATORY [address] [place], [place] [address] NEUTROPHIL ABS 4.90 K/CU MM Normal 2.0-8.3 [facility] Comment on above: Order Comment: Campu s: M Performed By: #### M 050.99957 #### [facility] LABORATORY [address] [place], [place] [address] Neutrophils/100 WBC (Bld) 73.8 % Normal 45-75 [facility] Comment on above: Order Comment: Campu s: M Performed By: #### M 050.10520 #### [facility] LABORATORY [address] [place], [place] [address] Nucleated RBC/100 WBC (Bld) [Ratio] 0.0 % Normal Less than 1 [facility] Comment on above: Order Comment: Campu s: M Performed By: #### M 050.42081 #### [facility] LABORATORY [address] [place] [address] Platelet mean volume (Bld) [Entitic vol] 10.9 fL Normal 9.4-12.4 [facility] Comment on above: Order Comment: Campu s: M Performed By: #### M 050.78547 #### [facility] LABORATORY [address] [place] [address] PLT 53 K/CU MM Low 150-450 [facility] Comment on above: Order Comment: Campu s: M Result Comment: Conf irmed by slide estimate. Performed By: #### M 050.49277 #### [facility] LABORATORY [address] [place] [address] PLT EST MOD DECREASED Normal [facility] Comment on above: Order Comment: Campu s: M Performed By: #### M 050.06988 #### [facility] LABORATORY [address] [place], [place] [address] POIK 1+ Normal [facility] Comment on above: Order Comment: Campu s: M Performed By: #### M 050.02148 #### [facility] LABORATORY [address] [place] [address]658 RBC 3.59 M/CU MM Low 3.90-5.30 [facility] Comment on above: Order Comment: Campu s: M Performed By: #### M 050.05766 #### [facility] LABORATORY [address] [place] [address] WBC 6.6 K/CUMM Normal 4.5-11.0 [facility] Comment on above: Order Comment: Campu s: M Result Comment: Conf irmed by slide estimate. Performed By: #### M 050.46279 #### [facility] LABORATORY [address] [place], [place] [address] GFR ESTon 02-22-2021 IF AMER 44 Normal [facility] Comment on above: Order Comment: Campu s: M Performed By: #### L 500.89540, L500.84827, L500.21746 #### [facility] LABORATORY [address] [place], [place] [address] IF non-AFR AMER 36 Normal [facility] Comment on above: Order Comment: Campu s: M Performed By: #### L 500.00804, L500.41298, L500.02882 #### [facility] LABORATORY [address] [place] [address] GLUCOSE METERon 02-22-2021 Glucose [Mass/Vol] 230 mg/dL High 85-125 [facility] [place] Glucose [Mass/Vol] 183 mg/dL High 85-125 [facility] [place] Glucose [Mass/Vol] 143 mg/dL High 85-125 [facility] [place] Glucose [Mass/Vol] 156 mg/dL High 85-125 [facility] Glucose [Mass/Vol] 164 mg/dL High 85-125 [facility] 02-22-2021 Lactate [Moles/Vol] 1.59 mmol/L Normal 0.40-2.00 [facility] Comment on above: Order Comment: Campu s: M Performed By: #### L 550.51672 #### [facility] LABORATORY [address] [place] [address] MAGNESIUMon 02-22-2021 Magnesium [Mass/Vol] 1.3 mg/dL Low 1.6-2.6 [facility] Comment on above: Order Comment: Campu s: M Performed By: #### L 500.57781, L500.99029, L500.90011 #### [facility] LABORATORY [address] [place] [address] PHA.NOTEon 02-22-2021 PHA.NOTE [facility] Patient Name: YARA BETH [address] [place] [address] Date of : 64 [place], [place] [address] Unit Number: [id number] Pharmacy Note Patient Status: ADM IN Attending Doctor: Skyler Fregoso DO Service Date: 02/22/212151 Pharmacy Note - VANCO Sign Off Note: ID discontinued Vancomycin. Pharmacy will sign-off. Thank you for the consult. Disclaimer This dictation was created using voice recognition software. Phonetic and/or minor grammatical errors may exist. eSign Date and Time Sy Ceron Verified/Reviewed by 02/22/212151 Venkat Raphael PharmD [facility] Pharmacy Note [facility] PROG [facility] [place] [place] 02-22-2021 PROG [facility] Patient Name: YARA BETH [address] Date of : 64 [place], [place] [address] Unit Number: [id number] Progress Note-Hospitalist Patient Status: ADM IN Attending Doctor: Skyler Fregoso DO Service Date: 02/22/21 180 Chief Complaint Chief Complaint Neck mass. Subjective S: (2 ROS minimum) Complaining of postoperative soreness. No chest pain, dyspnea, nausea, or vomiting. Her friend, Barbara, is at the bedside. Objective (ROS) Nursing Vitals Vital Signs (Last) Result Date Time Pulse Ox 98 02/22 1530 O2 Delivery NASAL CANNULA 02/22 1530 B/P 115/65 02/22 1524 O2 Flow Rate 4 02/22 1524 Temp 97.7 02/22 1524 Pulse 106 02/22 1524 Resp 22 02/22 1524 B/P Mean 83 02/21 1500 General Appearance Sitting up in bed, appears to be mildly uncomfortable but no acute distress, nontoxic. Physical Exam Neurological / Psychiatric Alert, Orientation X3, Affect Normal, Cranial Nerves Intact, Decreased auditory acuity, mentating well HEENT No Trauma, EOMI, Moist mucous membranes, no scleral icterus Neck Postoperative dressing is in place Respiratory Normal Breathing Effort, No audible wheeze, no cough, no tachypnea Gastrointestinal No obvious significant distention, no vomiting, no hematemesis, no diarrhea Diagnostic Data: Lab 24hr (CBC/BMP [facility]) 02/22/21 1637: Whole Bld Glucose 183 H 02/22/21 1413: Whole Bld Glucose 143 H 02/22/21 1330: Flow Cytometry Comment Pending, Flow Cytom Path Interp Pending 02/22/21 1132: Whole Bld Glucose 156 H 02/22/21 0742: Whole Bld Glucose 164 H 02/22/21 0434: Lactic Acid 1.59 02/22/21 0434: [Embedded Image Not Available] Anion Gap 4 L, Est GFR ( Amer) 44, Est GFR (Non-Af Amer) 36, BUN/Creatinine Ratio 12 L, Glucose 195 H, Total Calcium 8.4 L, Magnesium 1.3 L, RBC 3.59 L, MCV 93.9, MCHC 34.1 , RDW 12.9, MPV 10.9, Immature Gran % (Auto) 0.8, Abs Immat Gran (auto) 0.10, Seg Neutrophils % 73.8, Lymphocytes % 14.8 L, Monocytes % 8.6, Eosinophils % 1.7, Basophils % 0.3, Neutrophils # 4.90, Lymphocytes # 1.00, Monocytes # 0.60, Eosinophils # 0.10, Basophils # 0.00, Nucleated RBCs 0.0, Platelet Estimate MOD DECREASED, Poikilocytosis 1+ 02/22/21 0400: Ionized Calcium Cancelled 02/21/21 2105: Whole Bld Glucose 210 H Assessment and Plan Conclusion 1. Neck mass Neck mass concerning for possible hematoma malignancy versus infectious etiology. IV antibiotics Appreciate assistance from ENT and ID Patient has been planned for IR drainage of neck mass We will await pathology results Restart home medications Monitor glucose A.m. labs Full code 2. Diabetes mellitus 3. GERD (gastroesophageal reflux disease) 4. Hepatic steatosis 52-year-old female with medical history of diabetes gastroesophageal reflux disease hepatic steatosis thrombocytopenia. Patient presents the hospital with complaints of right neck mass patient seen outpatient ENT recommended evaluation in the hospital. In the hospital patient was found to have fluid-filled collection 7 cm on the right neck around the sternocleidomastoid muscle. Patient empirically started on IV antibiotics. Findings on imaging are suggestive of hematoma. Patient was seen by ENT recommending for IR drainage of the region with results sent to pathology. Patient denies fevers chills nausea vomiting. 02/20/2021: Dr. Graf from interventional radiology requested for nursing to contact me regarding symptoms Yara incurred after undergoing the neck biopsy in his department. I went to go see her and Dr. Graf was at the bedside. He explained that upon biopsy, purulent material was returned. About 5 minutes after the biopsy, Yara started to have vomiting. A few minutes later, she had rigors. Her temperature had increased to 99.5 F. By the time I got to the bedside, symptoms and passed and she was complaining only of feeling tired and worn out. Just as I was leaving, her lips started to quiver slightly. Dr. Tracey then called me to notify me that Yara had another episode of vomiting and rigors. This time, temperature increased to around 101 F. He had discussed this case with Dr. Deutsch from pulmonary/critical care medicine and I notified Dr. Deutcsh that Yara had another episode that I would like to have her monitored in the intensive care unit. He was fully agreeable with this. I have provided transfer orders. Vomiting and rigors after the biopsy are new issues that I am addressing today. We are continuing intravenous antibiotics as per infectious disease. I concur with infectious disease and ENT. I discussed the postbiopsy events with physician head start assistant teacher Zaida and Dr. Saleh from ENT. I called and updated Dr. De Jesus from infectious disease as well. We will continue Zosyn and vancomycin while awaiting culture results. 02/21/2021: Has received a couple of IV fluid boluses (more content not included)... [facility] Progress Note-Hospitalist [facility] SURG 02-22-2021 SURG -------- -------- Patient: YARA BETH Remi -------- SPECIMEN: [id number] Collection Date: 02/22/21 Received: 02/22/21 Status: PRISCILA Marie Dr.: Skyler Fregoso DO Ph# Othr. Dr.: Prashant Hernandez MD [facility]. Dr.: Darryl Nam Material for Examination: A #3 RIGHT NECK MASS B #5 RIGHT NECK MASS FOR FLOW CYTOMETRY PRE-OP DIAGNOSIS: RIGHT NECK MASS POST-OP DIAGNOSIS: SAME SURGICAL PROCEDURE: OPEN BIOPSY OF RIGHT NECK MASS DIAGNOSIS A. Right neck mass, biopsy: - Inflamed fibroadipose and connective tissue with inflammatory histiocytic infiltrate and fat necrosis. - No malignancy identified. - See comment. B. Right neck mass for flow cytometry: - Tissue entirely submitted for flow cytometry. - Gross examination only. COMMENT A. Immunohistochemical stains are performed on the inflammatory histiocytic process to further characterize it and demonstrate the following (valid controls): CD68 highlights histiocytes. SHAWNA, cytokeratin AE1/AE3 are negative. CD45, CD3, CD20 all show patchy positivity highlighting leukocytes and a mixture of T-cells and B-cells respectively. The accompanying flow cytometry specimen demonstrates a heterogeneous population of lymphocytes and granulocytes with no evidence of leukemia or non-Hodgkin lymphoma, however specimen viability is only 44% however with 31% CD45 negative event/debris present. Morphology and immunophenotype together with the flow cytometric analysis results are supportive of the diagnosis. FROZEN SECTION DIAGNOSIS A. Right neck mass: Fibrous inflammatory process with fat necrosis. Further diagnosis deferred to permanent section. Per Clarence Bloom D.O. on February 22, 2021 at 1306 hrs. -------- [facility] NAME: YARA BETH Pathology and Laboratory Medicine UNIT#: [id number] LOC: H.8M Machine Cloth Examiner: Jenna Hernandez M.D. [id number] ROOM/BED: [place] [address] Hipui : 64 AGE/SEX: 60/F ORD.Skyler Lea DO CONTINUED ON NEXT PAGE -------- Patient: YARA BETH Unit#: [id number] (continued) SPECIMEN: [id number] GROSS DESCRIPTION A. The specimen is received fresh and labeled with the patient's name, ID and designated right neck mass #3, is a mixed red-yellow fibrofatty-like portion of tissue, 1.5 x 0.6 x 0.5 cm. The specimen is bisected. A touch prep is performed. Half of the specimen is submitted in cassette AFS1 and the remainder of the specimen is submitted in cassette A2. B. The specimen is received in saline and labeled with the patient's name, ID and designated #5 right neck mass for flow cytometry, is a perez-red friable portion of tissue, 0.6 x 0.4 x 0.2 cm. The entire specimen is placed in RPMI and sent for flow cytometry. Gross only. MICROSCOPIC DESCRIPTION A. Seven Boston stained slides, one Diff-Quik stained touch preparation slide and six IHC stained slides examined. B. Gross examination only. COPIES TO: Prashant Hernandez MD, Nicole L DO Smith, Eric A Signed Verified/Reviewed by CLARENCE BLOOM D.O. 02/28/21 This dictation was created using voice recognition software. Phonetic and/or minor grammatical errors may exist. -------- [facility] NAME: YARA BETH Pathology and Laboratory Medicine UNIT#: [id number] LOC: [address] Examiner: Jenna Hernandez M.D. [facility] [id number] ROOM/BED: [place] [address] Hip[place] : 64 AGE/SEX: 60/F ORD.Skyler Lea DO END OF REPORT Normal [facility] SURG TISSUEon 02-22-2021 SURG TISSUE GRAM STAIN FEW WBC'S NO ORGANISMS SEEN ORGANISM 1: MICROAEROPHILIC STREPTOCOCCUS QUANTITATION MODERATE ID TO FOLLOW NOT VIABLE FOR SENSITIVITY Normal [facility] Comment on above: Order Comment: Campu s: MNECK NEEDLE ASPIRATION Performed By: #### M [id number] ####[facility] [id number] [place], [place] [address]Vo# [phone] GLUCOSE METERon 02-21-2021 Glucose [Mass/Vol] 210 mg/dL High 85-125 [facility] Glucose [Mass/Vol] 233 mg/dL High 85-125 [facility] Glucose [Mass/Vol] 202 mg/dL High 85-125 [facility] Glucose [Mass/Vol] 217 mg/dL High 85-125 [facility] Patient Name: YARA BETH [address] [facility] Date of : 64 [place] [address] Unit Number: [id number] Progress Note-Hospitalist Patient Status: ADM IN Attending Doctor: Skyler Fregoso DO Service Date: 02/21/21 1028 Chief Complaint Chief Complaint Neck mass. Subjective S: (2 ROS minimum) No complaint. No chest pain, dyspnea, nausea, or vomiting. States she is feeling better than she did after undergoing the biopsy yesterday. Objective (ROS) Nursing Vitals Vital Signs (Last) Result Date Time Pulse Ox 93 02/21 0500 B/P 103/59 02/21 0500 B/P Mean 75 02/21 0500 Pulse 77 02/21 0500 Resp 16 02/21 0500 Temp 98.5 02/21 0400 General Appearance Sitting up in bed, comfortable, nontoxic. Physical Exam Neurological / Psychiatric Alert, Orientation X3, Affect Normal, Cranial Nerves Intact, Mentating well HEENT No Trauma, EOMI, Moist mucous membranes, no scleral icterus Neck Supple Respiratory Normal Breathing Effort, No audible wheeze, no cough, no tachypnea Cardiovascular Sinus on telemetry Gastrointestinal No obvious significant distention, no vomiting, no hematemesis, no diarrhea Diagnostic Data: Lab 24hr (CBC/BMP [facility]) 02/21/21 0821: Whole Bld Glucose 217 H 02/20/21 2117: Whole Bld Glucose 347 H 02/20/21 2000: Vancomycin Trough Cancelled 02/20/21 1836: Vancomycin Trough 11.4 L 02/20/21 1654: Whole Bld Glucose 167 H 02/20/21 1436: Lactic Acid 3.53 H 02/20/21 1336: Procalcitonin 0.33 02/20/21 1336: Rjr-Y-Mrwbwdavizo Pept 111 02/20/21 1300: Whole Bld Glucose 163 H 02/20/21 1104: Pathologist Comment Cancelled, Fluid Source Cancelled, Fluid Color Cancelled, Fluid Appearance Cancelled, Fluid WBC Cancelled, Fluid RBC Cancelled, Fluid Neutrophils Cancelled Assessment and Plan Conclusion 1. Neck mass Neck mass concerning for possible hematoma malignancy versus infectious etiology. IV antibiotics Appreciate assistance from ENT and ID Patient has been planned for IR drainage of neck mass We will await pathology results Restart home medications Monitor glucose A.m. labs Full code 2. Diabetes mellitus 3. GERD (gastroesophageal reflux disease) 4. Hepatic steatosis 52-year-old female with medical history of diabetes gastroesophageal reflux disease hepatic steatosis thrombocytopenia. Patient presents the hospital with complaints of right neck mass patient seen outpatient ENT recommended evaluation in the hospital. In the hospital patient was found to have fluid-filled collection 7 cm on the right neck around the sternocleidomastoid muscle. Patient empirically started on IV antibiotics. Findings on imaging are suggestive of hematoma. Patient was seen by ENT recommending for IR drainage of the region with results sent to pathology. Patient denies fevers chills nausea vomiting. 02/20/2021: Dr. Graf from interventional radiology requested for nursing to contact me regarding symptoms Yara incurred after undergoing the neck biopsy in his department. I went to go see her and Dr. Graf was at the bedside. He explained that upon biopsy, purulent material was returned. About 5 minutes after the biopsy, Yara started to have vomiting. A few minutes later, she had rigors. Her temperature had increased to 99.5 F. By the time I got to the bedside, symptoms and passed and she was complaining only of feeling tired and worn out. Just as I was leaving, her lips started to quiver slightly. Dr. Tracey then called me to notify me that Yara had another episode of vomiting and rigors. This time, temperature increased to around 101 F. He had discussed this case with Dr. Deutsch from pulmonary/critical care medicine and I notified Dr. Deutsch that Yara had another episode that I would like to have her monitored in the intensive care unit. He was fully agreeable with this. I have provided transfer orders. Vomiting and rigors after the biopsy are new issues that I am addressing today. We are continuing intravenous antibiotics as per infectious disease. I concur with infectious disease and ENT. I discussed the postbiopsy events with physician head start assistant teacher Zaida and Dr. Saleh from ENT. I called and updated Dr. De Jesus from infectious disease as well. We will continue Zosyn and vancomycin while awaiting culture results. 02/21/2021: Has received a couple of IV fluid boluses overnight and this morning for borderline hypotension. Blood pressure is currently improved and Yara has been cleared for transfer out of the intensive care unit by pulmonary/critical care medicine. I agree that she is stable for transfer to the medical floor. She remains on broad-spectrum antibiotics with Zosyn and vancomycin. Culture from fluid obtained from the neck during biopsy yesterday is currently pending. Pathology evaluation is pending as well. I concur with pulmonary/cr (more content not included)... [facility] Progress Note-Hospitalist [facility] PROG.ENTon 02-21-2021 PROG.ENT [facility] Patient Name: YARA BETH A [address] Date of : 64 [place] [id number] Unit Number: [id number] Progress Note-ENT Patient Status: ADM IN Attending Doctor: Skyler Fregoso DO Service Date: 02/21/21 1609 Progress Note - ENT Subjective Subjective: (2 ROS minimum) I am feeling better Objective Nursing Vitals Vital Signs (Last) Result Date Time Temp 98.9 02/21 1200 Pulse Ox 95 02/21 1200 B/P 118/56 02/21 1200 B/P Mean 79 02/21 1200 Pulse 96 02/21 1200 Resp 30 02/21 1200 Physical Exam The patient has a persistent large right neck mass. There is a mild darkness to the overlying skin. There is no dimpling. There is no palpable fluctuance. There is minimal to no erythema. The mass has a firm feel. It is nontender. It remains quite sizable occupying the majority of the right neck. She is awake, alert and communicates well. She is in no acute distress. She is nontoxic in appearance. She is having no trouble breathing. She denies significant pain in this area. Diagnostic Data Lab 24hr (CBC/BMP [facility]) 02/21/21 1142: Whole Bld Glucose 202 H 02/21/21 0821: Whole Bld Glucose 217 H 02/20/21 2117: Whole Bld Glucose 347 H 02/20/21 2000: Vancomycin Trough Cancelled 02/20/21 1836: Vancomycin Trough 11.4 L 02/20/21 1654: Whole Bld Glucose 167 H Recent Impressions (72hr) SPECIAL PROCEDURES - US GUIDANCE FOR NEEDLE BX 02/20 1110 Report Impression - Status: SIGNED Entered: 02/20/2021 1415 IMPRESSION: Successful ultrasound-guided right neck mass biopsy. The patient developed sepsis after the biopsy. The patient will be transferred to the intensive care unit for careful monitoring. Impression By: MAYTE GRAF M.D. SPECIAL PROCEDURES - BIOPSY TRANSCATHETER X/R Malinda 02/20 1110 Report Impression - Status: SIGNED Entered: 02/20/2021 1415 IMPRESSION: Successful ultrasound-guided right neck mass biopsy. The patient developed sepsis after the biopsy. The patient will be transferred to the intensive care unit for careful monitoring. Impression By: MAYTE GRAF M.D. Assessment/Plan Conclusion 1. Localized swelling, mass or lump of neck The FNA performed yesterday demonstrates only inflammatory cells, no malignant cells. However, the working diagnosis on this mass remains a neoplastic process. Most likely, this represents a lymphoma. The patient's clinical picture is not consistent with an abscess. She is nontoxic in appearance, her white blood cell count is normal and the mass has been present since February 02. If this was a neck abscess the patient's condition would have rapidly deteriorated. The CT appearance is also consistent with a neoplasm. The interventional radiologist describes getting back purulence on his aspirate. In all likelihood this was necrotic debris. The patient will require an open biopsy of this neck mass to determine whether or not this is a neoplastic process or an inflammatory/ infectious process. This was reviewed with the patient at length today. She seems to understand. We will need to find operative time to perform this procedure. Ongoing 02/02/21 Disclaimer This dictation was created using voice recognition software. Phonetic and/or minor grammatical errors may exist. eSign Date and Time Clifton Lo MD Verified/Reviewed by 02/21/21 1615 [facility] Progress Note-ENT [facility] PROG.Louise 02-21-2021 PROG.[facility] Patient Name: YARA BETH [address] Date of : [address] [place] [address] Unit Number: [id number] Progress Note-Roll Up Guider Operator Patient Status: ADM IN Attending Doctor: Skyler Fregoso DO Service Date: 02/21/21725 Progress Note-Roll Up Guider Operator Subjective Subjective: Patient denies fever chills. No shortness of breath. No wheezing no stridor. Patient did have episode some throbbing of right neck around 3 AM Patient states hungry/thirsty. Objective Vital Signs: Vital Signs (Last) Result Date Time Pulse Ox 93 02/21 0500 B/P 103/59 02/21 0500 B/P Mean 75 02/21 0500 Pulse 77 / 0500 Resp 16 02/21 0500 Temp 98.5 02/21 0400 IandO 24 Hour Summary 02/21 0000 Intake Total 3441 Output Total 300 Balance 3141 Intake, IV 2781 Intake, Oral 660 Number 2 Unmeasured Voids Output, Stool 0 Output, Urine 300 Patient 251 lb Weight Exam: Gen: 60-year-old white female large right neck mass firm to the touch. Patient's voice is hoarse. There is no stridor. Patient is alert and awake. Resting in the right neck. HEENT head is normocephalic. Pupils are 3+ equal and reactive. Mucous membranes are pink and moist. Neck neck: Large right mass soft/mildly firm, not hot to touch. Cardiovascular: Regular rate and rhythm. No murmur rub or gallop. No extrasystolic beats. Respiratory: Clear anteriorly, no wheezing GI: Abdomen soft positive bowel sounds nontender no organomegaly no distention Extremities: Warm and dry +1 pulses no edema no cyanosis or clubbing. Neuro: Alert, awake, cooperative, no gross focal logic deficits. Patient is hard of hearing and hearing aids were placed during the interview this morning. Medications: Medications Current Sig/Daniel Start time Last Medication Dose Route Stop Time Status Admin Acetaminophen 650 MG Q4HPRN PRN 02/18 1200 AC 02/21 (TYLENOL TAB) PO 0410 Al Hydrox/Mg Hydrox/ 30 ML Q6HPRN PRN 02/18 1200 AC Simethicone PO (MAALOX (ALAMAG)PLUS ORAL LIQ) Albuterol/Ipratropium 3 ML QIDRT 02/20 1630 AC 02/20 (DUONEB 0.5-3 MG/3 INH 2000 ML INH.NEB) Albuterol/Ipratropium 3 ML Q2HPRN PRN 02/20 1330 AC (DUONEB 0.5-3 MG/3 INH ML INH.NEB) Benzocaine/Menthol 1 HERON Q2HPRN PRN 02/18 1200 AC (CEPACOL LOZENGE) MM Bisacodyl 10 MG QDAYPRN PRN 02/18 1200 AC (DULCOLAX RECT) RC Budesonide 0.5 MG BID@0800,02/18 AC 02/20 (PULMOCORT 0.5MG/2ML INH 1999 INH.NEB) Guaifenesin/ 10 ML Q4HPRN PRN 02/18 1200 AC Dextromethorphan PO (ROBITUSSIN-DM ORAL LIQ) Hypromellose 1 GTT Q2HPRN PRN 02/18 1200 AC (ISOPTO TEARS 0.5% OU OPTH DROP) Insulin Human Lispro See Dose [facility]HS 02/21 0800 AC (humaLOG/novoLOG PEN) Insts (1) SC Lactated Ringer's 1,000 ML CONT 02/20 1430 AC 02/20 (Lactated Ringers) IV 1417 Magnesium Hydroxide 30 ML [id number] PRN 02/18 1200 AC (MILK OF MAGNESIA PO ORAL LIQ) Melatonin 5 MG QHSPRN PRN 02/18 1200 AC 02/20 (MELATONIN TAB) PO 0028 Morphine Sulfate 2 MG Q2HPRN PRN 02/20 1630 AC 02/21 (MORPHINE D.SYR) IV 0009 Ondansetron HCl 4 MG Q6HPRN PRN 02/18 1200 AC 02/20 (ZOFRAN VIAL) IV 1257 Pantoprazole Sodium 40 MG QDAYAC 02/19 0700 AC 02/21 (PROTONIX TAB) PO 0622 Piperacillin Sod/ 3.375 GM Q8H@23 02/18 2300 AC 02/20 Tazobactam Sod IV 02/23 2259 2331 (ZOSYN VIAL) Sodium Chloride 50 ML (Sodium Chloride 0.9%) Sodium Phosphate 133 ML ONCALL PRN 02/18 1200 AC (FLEET ADULT ENEMA) RC Vancomycin HCl 1.5 GM QDAY@2100 02/20 2100 AC 02/20 (VANCOMYCIN VIAL) IV 02/25 2059 2225 Sodium Chloride 250 ML (Sodium Chloride 0.9%) Vancomycin HCl See Dose DIRECTED PRN 02/18 2000 AC (VANCOMYCIN VIAL) Insts (2) IV Dose Instructions: (1)Insulin Human Lispro (humaLOG/novoLOG PEN): 2-10 Units (2)Vancomycin HCl (VANCOMYCIN VIAL): RPh to dose Vancomycin Radiology Impressions: Recent Impressions (48H) SPECIAL PROCEDURES - US GUIDANCE FOR NEEDLE BX 02/20 1110 Report Impression - Status: SIGNED Entered: 02/20/2021 1415 IMPRESSION: Successful ultrasound-guided right neck mass biopsy. The patient developed sepsis after the biopsy. The patient will be transferred to the intensive care unit for careful monitoring. Impression By: MAYTE GRAF M.D. SPECIAL PROCEDURES - BIOPSY TRANSCATHETER X/R Malinda 02/20 1110 Report Impression - Status: SIGNED Entered: 02/20/2021 1415 IMPRESSION: Successful ultrasound-guided right neck mass biopsy. The patient developed sepsis after the biopsy. The patient will be transferred to the intensive care unit for careful monitoring. Impression By: MAYTE Negrete (more content not included)... Normal [facility] Progress Note-Roll Up Guider Operator [facility] PROG.NOTEon 02-21-2021 PROG.NOTE [facility] Patient Name: YARA BETH [address] Date of : [address] [place] [address] Unit Number: [id number] Progress Note-Physician Patient Status: ADM IN Attending Doctor: Skyler Fregoso DO Service Date: 02/21/21 1203 Subjective S: (2 ROS minimum) Neck is mildly sore. Had fever/rigors just a few minutes after procedure yesterday. Some loose stool this AM, no abd pain. Objective (ROS) Nursing Vitals Vital Signs (Last) Result Date Time Pulse Ox 93 02/21 0500 B/P 103/59 02/21 0500 B/P Mean 75 02/21 0500 Pulse 77 02/21 0500 Resp 16 02/21 0500 Temp 98.5 02/21 0400 Physical Exam Neurological / Psychiatric Alert Neck R neck/face mass Respiratory Normal Breathing Effort, Clear Lungs Cardiovascular Heart RRR Skin No Rash Diagnostic Data: Lab 24hr (CBC/BMP [facility]) 02/21/21 0821: Whole Bld Glucose 217 H 02/20/21 2117: Whole Bld Glucose 347 H 02/20/21 2000: Vancomycin Trough Cancelled 02/20/21 1836: Vancomycin Trough 11.4 L 02/20/21 1654: Whole Bld Glucose 167 H 02/20/21 1436: Lactic Acid 3.53 H 02/20/21 1336: Procalcitonin 0.33 02/20/21 1336: Qfd-H-Bdvkoyxrxqy Pept 111 02/20/21 1300: Whole Bld Glucose 163 H Assessment and Plan Conclusion 1. Neck mass ENT following, bx done 02/20, path pending. Completed covid vaccine, pcr neg here. On empiric vanc/zosyn. Will diarrhea and multiple recent courses of outpt abx, will check cdiff. Will follow, d/w nursing 2. Diabetes mellitus Disclaimer This dictation was created using voice recognition software. Phonetic and/or minor grammatical errors may exist. eSign Date and Time Nino De Jesus MD Verified/Reviewed by 02/21/21 1204 [facility] Progress Note-Physician [facility] BMPon 02-20-2021 Anion gap [Moles/Vol] 5 mmol/L Normal 5-16 [facility] Comment on above: Order Comment: Campu s: M Performed By: #### M [id number] #### [facility] [place] [address] Calcium [Mass/Vol] 8.3 mg/dL Low 8.5-10.5 [facility] Comment on above: Order Comment: Campu s: M Result Comment: NOTE NEW NORMAL RANGE DUE TO REAGENT CHANGE Performed By: #### M [id number] #### [facility] [place] [address] Chloride [Moles/Vol] 106 mmol/L Normal 98-107 [facility] Comment on above: Order Comment: Campu s: M Performed By: #### M [id number] #### [facility] LABORATORY [address] [place] [address] 10294 CO2 [Moles/Vol] 26.0 mmol/L Normal 21-32 [facility] Comment on above: Order Comment: Campu s: M Performed By: #### M 050.04048 #### [facility] LABORATORY [address] [place] [address] 04638 Creatinine [Mass/Vol] 1.54 mg/dL High 0.510- 0.95 0 [facility] Comment on above: Order Comment: Campu s: M Result Comment: Cori ents receiving either N-Acetylcysteine (NAC) or Metamizole prior to venipuncture, may have falsely depressed results. Performed By: #### M 050.32783 #### [facility] LABORATORY [address] [place] [address] Glucose [Mass/Vol] 213 mg/dL High 70-100 [facility] Comment on above: Order Comment: Campu s: M Result Comment: 70-1 00- Normal Fasting; 100-125 Impaired Fasting; greater than 126 on more than one result- Diabetes. ADA guidelines. Results may be falsely elevated after the administration of Sulfapyridine. Results may be falsely depressed after the administration of Sulfasalazine. Performed By: #### M 050.54995 #### [facility] LABORATORY [address] [place] [address] 17892 Potassium [Moles/Vol] 4.3 mmol/L Normal 3.5-5.1 [facility] Comment on above: Order Comment: Campu s: M Result Comment: Slig ht Hemolysis, Result may be affected. Performed By: #### M 050.91641 #### [facility] LABORATORY [address] [place] [address] 50764 Sodium [Moles/Vol] 137 mmol/L Normal 136-145 [facility] Comment on above: Order Comment: Campu s: M Performed By: #### M 050.06546 #### [facility] LABORATORY [address] [place] [address] 35627 Urea nitrogen [Mass/Vol] 18 mg/dL Normal 7-26 [facility] Comment on above: Order Comment: Campu s: M Performed By: #### M 050.94997 #### [facility] LABORATORY [address] [place] [address] 74110 Urea nitrogen/Creatinine [Mass ratio] 12 mg/mg Low 15-24 [facility] Comment on above: Order Comment: Campu s: M Performed By: #### M 050.30470 #### [facility] LABORATORY [address] [place] [id number] # [phone] BODY FLDon 02-20-2021 BODY FLD This report has been cancelled Normal [facility] Comment on above: Order Comment: Kevinu s: M CBC W/DIFFon 02-20-2021 BASO ABS 0.00 K/CU MM Normal 0-0.2 [facility] Comment on above: Order Comment: Campu s: M Performed By: #### L 200.59080 ####[facility] [id number] [place], [place] [address]Re# [phone] Basophils/100 WBC (Bld) 0.4 % Normal 0-2 [facility] Comment on above: Order Comment: Campu s: M Performed By: #### L 200.81563 ####[facility] [id number] [place], [place] [address]Lm# [phone] EOS ABS 0.10 K/CU MM Normal 0-0.5 [facility] Comment on above: Order Comment: Campu s: M Performed By: #### L 200.73036 ####[facility] [id number] [place], [place] [address]Ph# [phone] Eosinophils/100 WBC (Bld) 1.8 % Normal 0-5 [facility] Comment on above: Order Comment: Campu s: M Performed By: #### L 200.70948 ####[facility] [id number] [place], [place] [address]Ei# [phone] Erythrocyte distribution width (RBC) [Ratio] 12.9 % Normal 11-14.5 [facility] Comment on above: Order Comment: Campu s: M Performed By: #### L 200.58069 ####[facility] [id number] [place], [place] [address]Wq# [phone] Hematocrit (Bld) [Volume fraction] 35.1 % Normal 35.0-47.0 [facility] Comment on above: Order Comment: Campu s: M Performed By: #### L 200.34092 ####[facility] [id number] [place] [address]Xn# [phone] Hemoglobin (Bld) [Mass/Vol] 12.2 g/dL Normal 11.5-15.5 [facility] Comment on above: Order Comment: Campu s: M Performed By: #### L 200.47194 ####[facility] [id number] [place] [address]Pa# [phone] IMMATR GRAN ABS 0.10 K/CU MM Normal Less than 2 [facility] Comment on above: Order Comment: Campu s: M Performed By: #### L 200.67533 ####[place] [address]Ph# [phone] IMMATURE GRAN % 0.6 % Normal Less than 2 [facility] Comment on above: Order Comment: Campu s: M Performed By: #### L 200.70611 ####[place] [address]Ph# [phone] LYMPH ABS 1.10 K/CU MM Normal 0.9-4.4 [facility] Comment on above: Order Comment: Campu s: M Performed By: #### L 200.78374 ####[place] [address]Ph# [phone] Lymphocytes/100 WBC (Bld) 13.8 % Low 20-40 [facility] Comment on above: Order Comment: Campu s: M Performed By: #### L 200.50143 ####[facility] [id number] [place] [address]Yb# [phone] MCHC (RBC) [Mass/Vol] 34.8 g/dL Normal 32.0-36.0 [facility] Comment on above: Order Comment: Campu s: M Performed By: #### L 200.28242 ####[facility] [id number] [place] [address]Wd# [phone] MCV (RBC) [Entitic vol] 93.1 fL Normal 80.0-99.0 [facility] Comment on above: Order Comment: Campu s: M Performed By: #### L 200.54389 ####[facility] [id number] [place], [place] [address]Hx# [phone] MONO ABS 0.70 K/CU MM Normal 0.1-1.1 [facility] Comment on above: Order Comment: Campu s: M Performed By: #### L 200.84570 ####[facility] [id number] [place], [place] [address]Ph# [phone] Monocytes/100 WBC (Bld) 8.7 % Normal 2-10 [facility] Comment on above: Order Comment: Campu s: M Performed By: #### L 200.70652 ####[address] [address]Ns# [phone] NEUTROPHIL ABS 5.90 K/CU MM Normal 2.0-8.3 [facility] Comment on above: Order Comment: Campu s: M Performed By: #### L 200.05088 ####[facility] [id number] [place] [address]Mu# [phone] Neutrophils/100 WBC (Bld) 74.7 % Normal 45-75 [facility] Comment on above: Order Comment: Campu s: M Performed By: #### L 200.05714 ####[facility] [id number] [place], [place] [address]Ph# [phone] Nucleated RBC/100 WBC (Bld) [Ratio] 0.0 % Normal Less than 1 [facility] Comment on above: Order Comment: Campu s: M Performed By: #### L 200.68347 ####[facility] [id number] [place] [address]Nf# [phone] Platelet mean volume (Bld) [Entitic vol] 10.9 fL Normal 9.4-12.4 [facility] Comment on above: Order Comment: Campu s: M Performed By: #### L 200.04310 ####[facility] [id number] [place], [place] [address]Di# [phone] PLT 67 K/CU MM Low 150-450 [facility] Comment on above: Order Comment: Campu s: M Result Comment: Conf irmed by slide estimate. Performed By: #### L 200.17056 ####[facility] [id number] [place], [place] [address]Dr# [phone] PLT EST MOD DECREASED Normal [facility] Comment on above: Order Comment: Campu s: M Performed By: #### L 200.70111 ####[facility] [id number] [place] [address]Mr# [phone] POIK 1+ Normal [facility] Comment on above: Order Comment: Campu s: M Performed By: #### L 200.26335 ####[facility] [id number] [place] [address]Iq# [phone] POLY 1+ Normal [facility] Comment on above: Order Comment: Campu s: M Performed By: #### L 200.84288 ####[facility] [id number] [place] [address]Kj# [phone] RBC 3.77 M/CU MM Low 3.90-5.30 [facility] Comment on above: Order Comment: Campu s: M Performed By: #### L 200.91329 ####[facility] [id number] [place] [address]Zz# [phone] WBC 8.0 K/CUMM Normal 4.5-11.0 [facility] Comment on above: Order Comment: Campu s: M Performed By: #### L 200.96670 ####[facility] [id number] [place] [address]Cf# [phone] CONS.INTENon 02-20-2021 CONS.INTEN [facility] Patient Name: YARA BETH [address] [facility] Date of : [address] [place] [address] Unit Number: [id number] 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 She states she was actually dealing with a sore throat initially which then progressed to swelling. She states she has seen an ENT physician in [place] multiple times over the course of the following 2 weeks. She had been on 3 antibiotic courses. She actually underwent a resection of a tonsillar abscess at one point which she states did make some difference. Any rate she ultimately presented to [facility] on 02/18/2021 for IV antibiotics and further work-up. The patient was seen in consultation by ENT. She was taken for fine-needle biopsy of the right neck today by interventional radiology. The patient developed a SIRS response with rigors fever of 101 degrees post biopsy. Patient was brought to the ICU given concern for ensuing sepsis. Past Medical/Surgical Hx Past Medical History Summary Diabetes mellitus GERD/PUD with bleeding ulcer ABISAI with noncompliance Cirrhosis/SCHERER Number cytopenia Nephrolithiasis Asthma mild intermittent by history Past Surgical History Summary Cleft palate repair Cholecystectomy Lithotripsy Bilateral myringotomy tubes Family/Social History Family History FATHER (HEART DISEASEBLOOD CLOTELEVATED BP AND CHOLESTROL). MOTHER (HEART ISSUES). . Social Hx Patient is a lifelong non-smoker. She admits to rare alcohol use. Denies drug use. 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 She resides with her father. She does not have children. Allergies/Home Medications Allergies Coded Allergies: MEPERIDINE (From DEMEROL) (Severe, 02/18/21) Home Medications Budesonide/Formoterol Fum (Symbicort 160/4.5 Mcg INH) 1 PUFF HFA.AER.AD 2 PUFF INH QIDPRN PRN Shortness of Breath, Ref 0 (Reported) Entered as Reported by KRYSTAL SIMS on 02/18/21 7507 Last Action: Reviewed on 02/22/211444 by CHARISSE PABON Levocetirizine Dihydrochloride 5 MG TABLET 5 MG PO QDAY, Ref 0 (Reported) Entered as Reported by KRYSTAL SIMS on 02/18/211634 Last Action: Reviewed on 02/22/211444 by CHARISSE PABON Pantoprazole* (Protonix 40MG Tab*) 40 MG TABLET.DR 40 MG PO QDAYAC, Ref 0 (Reported) Entered as Reported by KRYSTAL SIMS on 02/18/211634 Last Action: Reviewed on 02/22/211444 by CHARISSE PABON Sitagliptin Phosphate* (Januvia Tab*) 50 MG TABLET 50 MG PO QDAYWM, Ref 0 (Reported) Entered as Reported by KRYSTAL SIMS on 02/18/211635 Last Action: Reviewed on 02/22/211444 by CHARISSE PABON Spironolactone* (Aldactone 100MG Tab*) 100 MG TABLET 100 MG PO QDAYWM, Ref 0 (Reported) Entered as Reported by KRYSTAL SIMS on 02/18/211632 Last Action: Reviewed on 02/22/211444 by CHARISSE PABON Review of Systems ROS: Other Patient denies chills sweats or fevers up until this time today. She admits to dysphagia on occasion but this is inconsistent according to family. Waxes and wanes. Patient admits to some lower extremity edema on occasion. She denies chest pain or palpitations. No angina equivalent. Denies dyspnea. Patient missed a history of sleep apnea but is admittedly noncompliant. States she was having nightmares and therefore stopped using this. She denies any nausea vomiting or diarrhea. She admits to unintentional weight loss. Physical Exam Vital Signs Vital Signs (Last) Result Date Time Pulse Ox 95 02/20 1330 B/P 119/52 02/20 1330 B/P Mean 72 02/20 1330 Pulse 138 02/20 1330 Resp 29 02/20 1330 Temp 99.5 02/20 1305 Vital Signs (24hr) Date Temp Pulse Resp B/P B/P Mean Pulse Ox FiO2 02/19-02/20 97.9-99.5 83-138 18-33 113-143/51-71 72-92 93-96 Physical Examination Summary Gen: 60-year-old white female large right neck mass firm to the touch. Patient's voice is hoarse. There is no stridor. Patient is alert and awake. Able to provide a full history. HEENT head is normocephalic. Pupils are 3+ equal and reactive. Mucous membranes are pink and moist. Neck large right mass firm to touch. Cardiovascular: Regular rate and rhythm. No murmur rub or gallop. No extrasystolic beats. Respiratory: Symmetric breath sounds bilaterally. Clear to anterior lateral auscultation. No wheezing or rhonchi. GI: Abdomen soft positive bowel sounds nontender no organomegaly no distention Extremities: Warm and dry +1 pulses no edema no cyanosis or clubbing. (more content not included)... Normal [facility] Consultation-Intensiv ist Normal [facility] GFR ESTon 02-20-2021 IF AMER 42 [facility] Comment on above: Order Comment: Heidi Katz Performed By: #### M 050.15975 #### [facility] LABORATORY [address] [place] [address] 824[address] IF non-AFR AMER 35 [facility] Comment on above: Order Comment: Heidi Katz Performed By: #### M 050.13569 #### [facility] LABORATORY [facility] [place] [address] GLUCOSE METERon 02-20-2021 Glucose [Mass/Vol] 347 mg/dL High 85-125 [facility] Glucose [Mass/Vol] 167 mg/dL High 85-125 [facility] Glucose [Mass/Vol] 163 mg/dL High 85-125 [facility] Glucose [Mass/Vol] 200 mg/dL High 85-125 [facility] Glucose [Mass/Vol] 269 mg/dL High 85-125 [facility] LACTIC ACIDon 02-20-2021 Lactate [Moles/Vol] 3.53 mmol/L High 0.40-2.00 [facility] Comment on above: Order Comment: Heidi Katz Performed By: #### L 550.97239 ####[facility] [id number] [place], [place] [address]Mu# [phone] NONGYNon 02-20-2021 NONGYN -------- -------- Patient: YARA BETH A -------- -------- Specimen: [id number] Spec Type: NONGSUKUMAR OrdFrancine Givens: Skyler Fregoso DO Status: SOUT Collect Date: 02/20/21 1104 Received Date: 02/20/21 1136 Source: Neck, NOS(Right neck mass biopsy) Procedure: CELL BLOCK, CYTO FINE NEEDL, CYTO FNA ADEQUA Comments: Prepared 3 air dried slides, 3 spray fixed slides, 2 cytospin slides, and a FNA rinse in saline for a cell block. PERTINENT HISTORY Neck mass, neoplasm causing mass effect on adjacent structures DESCRIPTIVE DIAGNOSIS Right neck mass, core needle biopsy touch impression: - No malignant cells identified. Acute inflammatory cells present. COMMENTS Please see associated surgical specimen ([id number]). COPIES TO: Ruchi Cerda Nicole L DO Smith, Eric A Signed Verified/Reviewed by JENNA HERNANDEZ M.D. 02/21/21 -------- [facility] NAME: YARA BETH Pathology and Laboratory Medicine UNIT#: [id number] LOC: [facility] Machine Cloth Examiner: Jenna Hernandez M.D. ROOM/BED: [place] [address] FoxyP2 [facility] : 64 AGE/SEX: 60/F ORD.Skyler Lea DO END OF REPORT Normal [facility] PBNP TESTon 02-20-2021 Natriuretic peptide B (Bld) [Mass/Vol] 111 pg/mL Normal 0-125 [facility] Comment on above: Order Comment: Heidi s: M Result Comment: NT-p roBNP results of less than 300 pg/ml likely rules out acute congestive heart failure with 99% predictive value. NOTE: These cuttoff points are suggested for ACUTE CHF DIAGNOSIS only Less than 50 years Greater than 450 pg/ml 50-75 years Greater than 900 pg/ml Greater than 75 years Greater than 1800 pg/ml NOTE NEW NORMAL RANGE Performed By: #### L 500.42205, L500.85175, L500.48151 #### [facility] LABORATORY [address] [place] [address] PHA.NOTEon 02-20-2021 PHA.NOTE [facility] Patient Name: YARA BETH [address] [place] [address] Date of : [address] [address] Unit Number: [id number] Pharmacy Note Patient Status: ADM IN Attending Doctor: Skyler Fregoso DO Service Date: 02/20/211956 Pharmacy Note - Follow-Up Note FOLLOW-UP NOTE Subjective: Pharmacy to dose vancomycin Assessment: * Patient is being treated for suspected infection. Patient is currently on vancomycin and Zosyn. LABS 02/20/21 0545: Creatinine 1.54 H Plan: Trough came back at 11.4 ( 1.5 hours from next dose) with goal of 15-20. SCr has slightly risen. Will increase dose from 1.25gm q24h to 1.5gm q24h and monitor renal function. Trough prior to 3rd dose of new regimen. Disclaimer This dictation was created using voice recognition software. Phonetic and/or minor grammatical errors may exist. eSign Date and Time Robert Ortega Verified/Reviewed by 02/20/211957 Janes Colon PharmD Normal [facility] Pharmacy Note Normal [facility] PROCAL Aon 02-20-2021 PROCAL A 0.33 NG/ML Normal 0-0.50 [facility] Comment on above: Order Comment: Heidi s: M Result Comment: PCT Concentration Interpretation PCT <=0.1 NG/ML: Normal range for healthy adults PCT >0.1 NG/ML and <0.5 NG/ML: Systemic infection (sepsis) is possible and may require antibiotic treatment, but other conditions are known to elevate PCT as well. PCT >0.5 NG/ML: Should ne considered at risk for developing severe sepsis or septic shock. PCT >2.0 NG/ML: Important systemic inflammatory response. Almost exclusively indicates episode of severe bacterial sepsis or septic shock. This assy uses differnt methodologies and produces results significantly lower than the Vidas. It is recommended to evaluate patients for sepsis based on results obtained from the [employer] platform vs the [employer] Vidas platform (previous). NOTE NEW NORMAL RANGE DUE TO REAGENT CHANGE Performed By: #### L 550.73315 ####[facility] [id number] [place], [place] [address]Tc# [phone] [facility] PR[facility] Patient Name: YARA BETH [address] [facility] Date of : [address] [address] Unit Number: [id number] Progress Note-Hospitalist Patient Status: ADM IN Attending Doctor: Skyler Fregoso DO Service Date: 02/20/21 1220 Chief Complaint Chief Complaint Neck mass. Subjective S: (2 ROS minimum) Complained of feeling tired and worn out when I saw her in interventional radiology. No chest pain or dyspnea. No nausea or vomiting at the time that I was seeing her. Had vomiting a short while earlier. Objective (ROS) Nursing Vitals Vital Signs (Last) Result Date Time Pulse Ox 93 02/20 821 B/P 116/51 02/20 821 Temp 97.9 02/20 821 Pulse 83 02/20 821 Resp 18 02/20 821 General Appearance Sitting up on a cot, appears somewhat tired and weak but no acute distress, nontoxic. Her lips started to quiver slightly just as I was leaving. Physical Exam Neurological / Psychiatric Alert, Affect Normal, Cranial Nerves Intact, Answering questions appropriat yuli, seems to be mentating well HEENT No Trauma, EOMI, Moist mucous membranes, no scleral icterus Neck Supple Respiratory Normal Breathing Effort, Clear Lungs, Fair air exchange anteriorly, no wheeze Cardiovascular Regular on auscultation, distant tones Gastrointestinal Non Tender, Soft, nondistended, no guarding Diagnostic Data: Lab 24hr (CBC/BMP [facility]) 02/20/21 0755: Whole Bld Glucose 200 H 02/20/21 0545: [Embedded Image Not Available] Anion Gap 5, Est GFR ( Amer) 42, Est GFR (Non-Af Amer) 35, BUN/Creatinine Ratio 12 L, Glucose 213 H, Total Calcium 8.3 L, RBC 3.77 L, MCV 93.1, MCHC 34.8, RDW 12.9, MPV 10.9 , Immature Gran % (Auto) 0.6, Abs Immat Gran (auto) 0.10, Seg Neutrophils % 74.7, Lymphocytes % 13.8 L, Monocytes % 8.7, Eosinophils % 1.8, Basophils % 0.4, Neutrophils # 5.90, Lymphocytes # 1.10, Monocytes # 0.70, Eosinophils # 0.10, Basophils # 0.00, Nucleated RBCs 0.0, Platelet Estimate MOD DECREASED, Polychromasia 1+, Poikilocytosis 1+ 02/19/21 2237: Whole Bld Glucose 269 H 02/19/21 1714: Whole Bld Glucose 192 H 08/31/21 1311: INR 1.19 H, PT Normal Mean Secs 12.6 H, APTT 26.5 Assessment and Plan Conclusion 1. Neck mass Neck mass concerning for possible hematoma malignancy versus infectious etiology. IV antibiotics Appreciate assistance from ENT and ID Patient has been planned for IR drainage of neck mass We will await pathology results Restart home medications Monitor glucose A.m. labs Full code 2. Diabetes mellitus 3. GERD (gastroesophageal reflux disease) 4. Hepatic steatosis 52-year-old female with medical history of diabetes gastroesophageal reflux disease hepatic steatosis thrombocytopenia. Patient presents the hospital with complaints of right neck mass patient seen outpatient ENT recommended evaluation in the hospital. In the hospital patient was found to have fluid-filled collection 7 cm on the right neck around the sternocleidomastoid muscle. Patient empirically started on IV antibiotics. Findings on imaging are suggestive of hematoma. Patient was seen by ENT recommending for IR drainage of the region with results sent to pathology. Patient denies fevers chills nausea vomiting. 02/20/2021: Dr. Graf from interventional radiology requested for nursing to contact me regarding symptoms Yara incurred after undergoing the neck biopsy in his department. I went to go see her and Dr. Graf was at the bedside. He explained that upon biopsy, purulent material was returned. About 5 minutes after the biopsy, Yara started to have vomiting. A few minutes later, she had rigors. Her temperature had increased to 99.5 F. By the time I got to the bedside, symptoms and passed and she was complaining only of feeling tired and worn out. Just as I was leaving, her lips started to quiver slightly. Dr. Tracey then called me to notify me that Yara had another episode of vomiting and rigors. This time, temperature increased to around 101 F. He had discussed this case with Dr. Deutsch from pulmonary/critical care medicine and I notified Dr. Deutsch that Yara had another episode that I would like to have her monitored in the intensive care unit. He was fully agreeable with this. I have provided transfer orders. Vomiting and rigors after the biopsy are new issues that I am addressing today. We are continuing intravenous antibiotics as per infectious disease. I concur with infectious disease and ENT. I discussed the postbiopsy events with physician head start assistant teacher Zaida and Dr. Saleh from ENT. I called and updated Dr. De Jesus from infectious disease as well. We will continue Zosyn and vancomycin while awaiting culture results. Disclaimer This dictation was created using voice recognition software. Phonetic and/or minor grammatical errors may exist. eSign Date and Time Doc Zhang MD Verified/R (more content not included)... [facility] Progress Note-Hospitalist [facility] PROG.ENTon 02-20-2021 PROG.ENT [facility] Patient Name: YARA BETH A [address] Date of : 64 [place], [place] [address] Unit Number: [id number] Progress Note-ENT Patient Status: ADM IN Attending Doctor: Skyler Fregoso DO Service Date: 02/20/21902 Progress Note - ENT Subjective Subjective: (2 ROS minimum) Yara is a 60 year old female admitted for a neck mass. Today, she rates her neck pain 8 /10. She describes the pain as searing pain. She feels like she is swallowing a softball. She denies N/V, SOB, fever or chills. She did not eat breakfast this morning as she is not sure when she is getting her biopsy done. She has no further questions. Objective Nursing Vitals Vital Signs (Last) Result Date Time Pulse Ox 93 02/20 821 B/P 116/51 02/20 821 Temp 97.9 02/20 08 Pulse 83 02/20 0821 Resp 18 02/20 08 VSS. Afebrile. Physical Exam NAD. Patient is laying back comfortably in bed. Neck examination reveals a large, firm mass on the right side of her neck. The area is tender to palpation. Diagnostic Data Lab 24hr (CBC/BMP [facility]) 02/20/21 0755: Whole Bld Glucose 200 H 02/20/21 0545: [Embedded Image Not Available] Anion Gap 5, Est GFR ( Amer) 42, Est GFR (Non-Af Amer) 35, BUN/Creatinine Ratio 12 L, Glucose 213 H, Total Calcium 8.3 L, RBC 3.77 L, MCV 93.1, MCHC 34.8, RDW 12.9, MPV 10.9 , Immature Gran % (Auto) 0.6, Abs Immat Gran (auto) 0.10, Seg Neutrophils % 74.7, Lymphocytes % 13.8 L, Monocytes % 8.7, Eosinophils % 1.8, Basophils % 0.4, Neutrophils # 5.90, Lymphocytes # 1.10, Monocytes # 0.70, Eosinophils # 0.10, Basophils # 0.00, Nucleated RBCs 0.0, Platelet Estimate MOD DECREASED, Polychromasia 1+, Poikilocytosis 1+ 02/19/21 2237: Whole Bld Glucose 269 H 02/19/21 1714: Whole Bld Glucose 192 H 02/19/21 1311: INR 1.19 H, PT Normal Mean Secs 12.6 H, APTT 26.5 02/19/21 1149: Whole Bld Glucose 306 H WBC normal at 8.0. Assessment/Plan Conclusion 1. Neck mass Yara is a 60 year old female admitted through the ED for worsening neck pain and swelling. PMH of DM, GERD, hepatic steatosis, cleft palate and thrombocytopenia. The patient is in no respiratory distress or stridor. Voice appears somewhat hoarse today. Neck examination reveals a large, firm mass over the right neck that is TTP. We are awaiting IR to perform the biopsy of the neck mass and obtain both cytology and CandS. We suspect this is some sort of malignancy based on the examination and CT scan results. We should be notified of the results when available. We will follow-up with results once obtained, whether the patient remains inpatient or outpatient if she is stable for discharge. Disclaimer This dictation was created using voice recognition software. Phonetic and/or minor grammatical errors may exist. eSign Date and Time Ruchi Cerda PAC Verified/Reviewed by 02/20/21920 Fabein Saleh MD [facility] Progress Note-ENT [facility] PROG.NOTEon 02-20-2021 PROG.NOTE [facility] Patient Name: YARA BETH [address] Date of : 64 [place] [address] Unit Number: [id number] Progress Note-Physician Patient Status: ADM IN Attending Doctor: Skyler Fregoso DO Service Date: 02/20/21932 Subjective S: (2 ROS minimum) Feeling about the same, no fever, neck pain still. Objective (ROS) Nursing Vitals Vital Signs (Last) Result Date Time Pulse Ox 93 02/20 821 B/P 116/51 02/20 821 Temp 97.9 02/20 821 Pulse 83 02/20 821 Resp 18 02/20 821 Physical Exam Neurological / Psychiatric Alert Neck R neck swelling Respiratory Normal Breathing Effort, Clear Lungs Cardiovascular Heart RRR Skin No Rash Diagnostic Data: Lab 24hr (CBC/BMP [facility]) 02/20/21 0755: Whole Bld Glucose 200 H 02/20/21 0545: [Embedded Image Not Available] Anion Gap 5, Est GFR ( Amer) 42, Est GFR (Non-Af Amer) 35, BUN/Creatinine Ratio 12 L, Glucose 213 H, Total Calcium 8.3 L, RBC 3.77 L, MCV 93.1, MCHC 34.8, RDW 12.9, MPV 10.9 , Immature Gran % (Auto) 0.6, Abs Immat Gran (auto) 0.10, Seg Neutrophils % 74.7, Lymphocytes % 13.8 L, Monocytes % 8.7, Eosinophils % 1.8, Basophils % 0.4, Neutrophils # 5.90, Lymphocytes # 1.10, Monocytes # 0.70, Eosinophils # 0.10, Basophils # 0.00, Nucleated RBCs 0.0, Platelet Estimate MOD DECREASED, Polychromasia 1+, Poikilocytosis 1+ 02/19/21 2237: Whole Bld Glucose 269 H 02/19/21 1714: Whole Bld Glucose 192 H 02/19/21 1311: INR 1.19 H, PT Normal Mean Secs 12.6 H, APTT 26.5 02/19/21 1149: Whole Bld Glucose 306 H Assessment and Plan Conclusion 1. Neck mass ENT following, aspiration planned; ordered cx and cell count along with path. Completed covid vaccine, pcr neg here. On empiric vanc/zosyn. Will follow 2. Diabetes mellitus Disclaimer This dictation was created using voice recognition software. Phonetic and/or minor grammatical errors may exist. eSign Date and Time Nino De Jesus MD Verified/Reviewed by 02/20/21 0998 [facility] Progress Note-Physician [facility] SURGon 02-20-2021 SURG -------- -------- Patient: YARA BETH -------- SPECIMEN: [id number] Collection Date: 02/20/21 Received: 02/20/21 Status: PRISCILA Marie DrFrancine: Skyler Fregoso DO Ph# Othr. Dr.: Michael Graf MD [facility]. Dr.: Ruchi Cerda Ot. Dr.: Darryl Nam Material for Examination: A RIGHT NECK MASS CORE BX PRE-OP DIAGNOSIS: RIGHT NECK MASS POST-OP DIAGNOSIS: NONE GIVEN SURGICAL PROCEDURE: RIGHT NECK MASS CORE BIOPSY DIAGNOSIS A. Right neck mass, core biopsy: - Fragments of skeletal muscle and acute inflammatory cells/abscess material. - No evidence of malignancy in the sections examined. COMMENT A care support representative sample was submitted to microbiology lab for cultures. GROSS DESCRIPTION The specimen is received in formalin and labeled with the patient's name, ID and designated right neck mass biopsy. The specimen is placed in formalin on February 20, 2021 at 11:28 AM. The specimen consists of 3 perez friable somewhat gelatinous needle cores ranging in size from 0.3 x 0.1 x 0.1 cm to 1.0 x 0.1 x 0.1 cm. Entirely submitted in cassette A1. MICROSCOPIC DESCRIPTION Two [place], one PAS and three immunohistochemical stained slides with adequate controls examined. At the edge of the core biopsy, there is a cystic space lined by single layer of endothelium, highlighted by positive staining for CD34. Keratin AE 1/3 and and D2-40 are negative. PAS/fungus stain highlights bacteria and is negative for fungal hyphae. COPIES TO: Michael Graf MD, Olivia A PAC Culman, Nicole L DO Smith, Eric A Signed Verified/Reviewed by JENNA HERNANDEZ M.D. 02/22/21 This dictation was created using voice recognition software. Phonetic and/or minor grammatical errors may exist. -------- [facility] NAME: YARA BETH Pathology and Laboratory Medicine UNIT#: [id number] LOC: [facility] Machine Cloth Examiner: Jenna Hernandez M.D. ROOM/BED: [place] [address] [employer], [employer] : 64 AGE/SEX: 60/F ORD.Skyler Lea DO END OF REPORT Normal [facility] VANC TROUGHon 02-20-2021 VANC TROUGH 11.4 MCG/ML Low 15.0-20.0 [facility] Comment on above: Order Comment: Kevinu s: M Performed By: #### L 200.99203 #### [facility] [address] [place] [address] BMPon 02-19-2021 Anion gap [Moles/Vol] 5 mmol/L Normal 5-16 [facility] Comment on above: Order Comment: Kevinu s: M Performed By: #### L 500.24788, L500.07649 ####[facility] [id number] [place], [place] [address]Lc# [phone] Calcium [Mass/Vol] 8.4 mg/dL Low 8.5-10.5 [facility] Comment on above: Order Comment: Campu s: M Result Comment: NOTE NEW NORMAL RANGE DUE TO REAGENT CHANGE Performed By: #### L 500.00953, L500.24780 ####[facility] [id number] [place], [place] [address]Cv# [phone] Chloride [Moles/Vol] 105 mmol/L Normal 98-107 [facility] Comment on above: Order Comment: Campu s: M Performed By: #### L 500.87932, L500.63437 ####[facility] [id number] [place], [place] [address]Lw# [phone] CO2 [Moles/Vol] 27.0 mmol/L Normal 21-32 [facility] Comment on above: Order Comment: Campu s: M Performed By: #### L 500.15344, L500.18398 ####[facility] [id number] [place], [place] [address]Lw# [phone] Creatinine [Mass/Vol] 1.34 mg/dL High 0.510- 0.95 0 [facility] Comment on above: Order Comment: Campu s: M Result Comment: Cori ents receiving either N-Acetylcysteine (NAC) or Metamizole prior to venipuncture, may have falsely depressed results. Performed By: #### L 500.87565, L500.80986 ####[facility] [id number] [place], [place] [address]Wd# [phone] Glucose [Mass/Vol] 210 mg/dL High 70-100 [facility] Comment on above: Order Comment: Campu s: M Result Comment: 70-1 00- Normal Fasting; 100-125 Impaired Fasting; greater than 126 on more than one result- Diabetes. ADA guidelines. Results may be falsely elevated after the administration of Sulfapyridine. Results may be falsely depressed after the administration of Sulfasalazine. Performed By: #### L 500.53420, L500.12353 ####[facility] [id number] [place], [place] [address]Zm# [phone] Potassium [Moles/Vol] 4.3 mmol/L Normal 3.5-5.1 [facility] [place] Comment on above: Order Comment: Campu s: M Result Comment: Slig ht Hemolysis, Result may be affected. Performed By: #### L 500.01722, L500.53455 ####[facility] [id number] [place], [place] [address]Dy# [phone] Sodium [Moles/Vol] 137 mmol/L Normal 136-145 [facility] Comment on above: Order Comment: Campu s: M Performed By: #### L 500.16240, L500.57486 ####[facility] [id number] [place], [place] [address]Ya# [phone] Urea nitrogen [Mass/Vol] 19 mg/dL Normal 7-26 [facility] Comment on above: Order Comment: Campu s: M Performed By: #### L 500.18602, L500.68580 ####[facility] [id number] [place] [address]Qd# [phone] Urea nitrogen/Creatinine [Mass ratio] 14 mg/mg Low 15-24 [facility] Comment on above: Order Comment: Campu s: M Performed By: #### L 500.01895, L500.34099 ####[facility] [id number] [place], [place] [address]Nw# [phone] CBCon 02-19-2021 Erythrocyte distribution width (RBC) [Ratio] 12.8 % Normal 11-14.5 [facility] Comment on above: Order Comment: Campu s: M Performed By: #### L 200.28301 #### [facility] [address] [place] [address] Hematocrit (Bld) [Volume fraction] 36.7 % Normal 35.0-47.0 [facility] Comment on above: Order Comment: Campu s: M Performed By: #### L 200.96447 #### [facility] [address] [place] [address] Hemoglobin (Bld) [Mass/Vol] 12.6 g/dL Normal 11.5-15.5 [facility] Comment on above: Order Comment: Campu s: M Performed By: #### L 200.79850 #### [facility] [address] [place] [address] MCHC (RBC) [Mass/Vol] 34.3 g/dL Normal 32.0-36.0 [facility] Comment on above: Order Comment: Campu s: M Performed By: #### L 200.39119 #### [facility] [address] [place] [address] MCV (RBC) [Entitic vol] 94.3 fL Normal 80.0-99.0 [facility] Comment on above: Order Comment: Campu s: M Performed By: #### L 200.66126 #### [facility] [address] [place] [address] Nucleated RBC/100 WBC (Bld) [Ratio] 0.0 % Normal Less than 1 [facility] Comment on above: Order Comment: Campu s: M Performed By: #### L 200.41327 #### [facility] [address] [place] [address] Platelet mean volume (Bld) [Entitic vol] 10.4 fL Normal 9.4-12.4 [facility] Comment on above: Order Comment: Campu s: M Performed By: #### L 200.68796 #### [facility] [address] [place] [address] PLT 68 K/CU MM Low 150-450 [facility] Comment on above: Order Comment: Campu s: M Result Comment: Conf irmed by slide estimate. Performed By: #### L 200.81305 #### [facility] [address] [place] [address] RBC 3.89 M/CU MM Low 3.90-5.30 [facility] Comment on above: Order Comment: Campu s: M Performed By: #### L 200.55968 #### [facility] [address] [place] [address] WBC 9.3 K/CUMM Normal 4.5-11.0 [facility] Comment on above: Order Comment: Campu s: M Performed By: #### L 200.80407 #### [facility] [address] [place] [address] CONS.ENTon 02-19-2021 CONS.ENT [facility] Patient Name: YARA BETH [address] [place] [address] Date of : 64 [place], [place] [address] Unit Number: [id number] CONSULTATION-ENT Patient Status: ADM IN Attending Doctor: Skyler Fregoso DO Service Date: 02/19/21858 See Addendum CONSULTATION-ENT Reason for Consult Neck mass History of Present Illness Yara is a 60 year old female admitted through the ED yesterday for worsening neck pain and swelling. PMH of DM, GERD, hepatic steatosis, and thrombocytopenia. She has a history of being born with a cleft palate. The patient states she went to the ED on February 02 for SOB and they sent her home. That day she had worsening sore throat, SOB and swelling in the face. She was recommended to try sour candy and drink lots of fluids thinking it was her salivary gland causing the issues. She went to see Dr. Newman at [place] who is an ENT and he obtained a CT scan of the tonsil area. She saw him about 3-4 times within the last 2 weeks. He recommended a tonsillectomy and the patient declined. Due to her history of cleft palate, she was told to never remove the tonsils as this can cause issues with voice quality and swallowing. He did prescribe Clindamycin and Amoxicillin for a possible tonsil infection. She notes that she was supposed to have an appointment with Dr. Saleh today, however she was recommended to go to the ED yesterday for IV therapy and possible surgical intervention. She was admitted yesterday on IV Vanco and Zosyn. ID was consulted as well. Today, she states she has no appetite. She notes over the last 2 weeks she unintentionally lost 10lbs. She notes pain with swallowing and difficulty swallowing. She states neck pain is 8-9/10 at its worse and currently 5-6/10. She notes waking up with night sweats, chills and fever. She denies hemoptysis, SOB, drooling or vomiting. She notes she tried cigarettes as a child but she does not have a consistent history of smoking. Allergies Coded Allergies: MEPERIDINE (From DEMEROL) (Severe, 02/18/21) Home Medications Budesonide/Formoterol Fum (Symbicort 160/4.5 Mcg INH) 1 PUFF HFA.AER.AD 2 PUFF INH QIDPRN PRN Shortness of Breath, Ref 0 (Reported) Entered as Reported by KRYSTAL SIMS on 02/18/211636 Last Action: Continued on 02/18/211650 by SKYLER FREGOSO Levocetirizine Dihydrochloride 5 MG TABLET 5 MG PO QDAY, Ref 0 (Reported) Entered as Reported by KRYSTAL SIMS on 02/18/21 163 Last Action: Held on 02/18/211650 by SKYLER FREGOSO Pantoprazole* (Protonix 40MG Tab*) 40 MG TABLET.DR 40 MG PO QDAYAC, Ref 0 (Reported) Entered as Reported by KRYSTAL SIMS on 02/18/21 163 Last Action: Continued on 02/18/211650 by SKYLER FREGOSO Sitagliptin Phosphate* (Januvia Tab*) 50 MG TABLET 50 MG PO QDAYWM, Ref 0 (Reported) Entered as Reported by KRYSTAL SIMS on 02/18/21 163 Last Action: Continued on 02/18/211650 by SKYLER FREGOSO Spironolactone* (Aldactone 100MG Tab*) 100 MG TABLET 100 MG PO QDAYWM, Ref 0 (Reported) Entered as Reported by KRYSTAL SIMS on 02/18/21 163 Last Action: Continued on 02/18/211650 by SKYLER FREGOSO Review of Systems Non-contributory unless otherwise stated in HPI. Physical Exam Vital Signs Vital Signs (Last) Result Date Time Pulse Ox 93 02/19 735 B/P 141/69 02/19 735 Temp 98.0 02/19 735 Pulse 81 02/19 735 Resp 18 02/19 735 VSS. Afebrile. Physical Exam Summary NAD. Patient is laying back comfortable in bed. No respiratory distress or stridor. Voice appears normal. Neck is significant for a right sided large tense mass. This area is tender to palpation diffusely especially over the supraclavicular region. She has normal neck ROM, however it is painful with neck movement. Oropharynx is significant for erythema and edema of the right tonsil. The right tonsil is larger than the left. Flexible laryngoscopy reveals normal vocal cord motion. There was fullness along the base of the tongue and swelling seen. Diagnostic Data Lab 24hr (CBC/BMP [facility]) 02/19/21 0825: Whole Bld Glucose 219 H 02/19/21 0547: [Embedded Image Not Available] Anion Gap 5, Est GFR ( Amer) 49, Est GFR (Non-Af Amer) 41, BUN/Creatinine Ratio 14 L, Glucose 210 H, Total Calcium 8.4 L, RBC 3.89 L, MCV 94.3, MCHC 34.3, RDW 12.8, MPV 10.4 , Nucleated RBCs 0.0 02/18/21 2343: Whole Bld Glucose 287 H 02/18/21 1851: Whole Bld Glucose 307 H 02/18/21 1557: [Embedded Image Not Available] Anion Gap 7, Est GFR ( Amer) 48, Est GFR (Non-Af Amer) 40, BUN/Creatinine Ratio 15, Glucose 262 H, Total Calcium 8.7, RBC 4.51, MCV 95.1, MCHC 34.0, RDW 12.7, MPV 10.6, Immature Gran % (Auto) 0.8, Abs Immat Gran (auto) 0.10, Seg Neutrophils % 80.2 H, Lymphocytes % 10.2 L, Monocytes % 7.8, Eosinophils % 0.7, Basophils % 0.3, Neutrophils # 9.10 H, Lymphocytes # 1.20, Monocytes # 0.90, Eosinophils # 0.10, Baso (more content not included)... [facility] [place] CONSULTATION-ENT Normal [facility] [place] GFR ESTon 02-19-2021 IF AMER 49 [facility] Comment on above: Order Comment: Campu s: M Performed By: #### L 500.12430, L500.27161 ####[facility] [id number] [place], [place] [address]Zy# [phone] IF non-AFR AMER 41 [facility] Comment on above: Order Comment: Campu s: M Performed By: #### L 500.24851, L500.73746 ####[facility] [id number] [place], [place] [address]Nq# [phone] GLUCOSE METERon 02-19-2021 Glucose [Mass/Vol] 192 mg/dL High 85-125 [facility] Glucose [Mass/Vol] 306 mg/dL High 85-125 [facility] Glucose [Mass/Vol] 219 mg/dL High 85-125 [facility] Glucose [Mass/Vol] 287 mg/dL High 85-125 [facility] HP.IMS.CONon 02-19-2021 HP.IMS.CON [facility] Patient Name: YARA BETH [address] Date of : [address] [place] [address] Unit Number: [id number] CONSULTATION-HandP Patient Status: ADM IN Attending Doctor: Skyler Fregoso DO Service Date: 02/19/21 1200 History of Present Illness Referring Physician Skyler Fregoso DO Reason for Consult neck abscess History of Present Illness 60 y/o F with h/o cleft palate, DM, presented with sx since 02/02, c/o progressive R neck swelling, pain, mild sore throat, chills, and night sweats. No inciting event, no recent dental work. No drainage or foul taste in mouth. Has been following with ENT Dr. Newman in [place], has gotten 2 courses of po abx with only worsening sx. Has completed covid vaccine. Saw different ENT, sent to hospital, started on vanc/zosyn, aspiration planned for today. Full ROS performed and neg except as noted above. Past Medical/Surgical Hx Past Medical History Diabetes GERD Hepatic steatosis Chronic thrombocytopenia Kidney stones Past Surgical History Lithotripsy Bilateral myringotomy tubes Cleft palate surgery Cholecystectomy Family/Social History Family History FATHER (HEART DISEASEBLOOD CLOTELEVATED BP AND CHOLESTROL). MOTHER (HEART ISSUES). . Allergies/Home Medications Allergies Coded Allergies: MEPERIDINE (From DEMEROL) (Severe, 02/18/21) Home Medications Budesonide/Formoterol Fum (Symbicort 160/4.5 Mcg INH) 1 PUFF HFA.AER.AD 2 PUFF INH QIDPRN PRN Shortness of Breath, Ref 0 (Reported) Entered as Reported by KRYSTAL SIMS on 02/18/211636 Last Action: Continued on 02/18/211650 by SKYLER FREGOSO Levocetirizine Dihydrochloride 5 MG TABLET 5 MG PO QDAY, Ref 0 (Reported) Entered as Reported by KRYSTAL SIMS on 02/18/211634 Last Action: Held on 02/18/211650 by SKYLER FREGOSO Pantoprazole* (Protonix 40MG Tab*) 40 MG TABLET.DR 40 MG PO QDAYAC, Ref 0 (Reported) Entered as Reported by KRYSTAL SIMS on 02/18/211634 Last Action: Continued on 02/18/211650 by SKYLER FREGOSO Sitagliptin Phosphate* (Januvia Tab*) 50 MG TABLET 50 MG PO QDAYWM, Ref 0 (Reported) Entered as Reported by KRYSTAL SIMS on 02/18/211635 Last Action: Continued on 02/18/211650 by SKYLER FREGOSO Spironolactone* (Aldactone 100MG Tab*) 100 MG TABLET 100 MG PO QDAYWM, Ref 0 (Reported) Entered as Reported by KRYSTAL SIMS on 02/18/211632 Last Action: Continued on 02/18/211650 by SKYLER FREGOSO Physical Exam Vital Signs Vital Signs (Last) Result Date Time Pulse Ox 93 02/19 735 B/P 141/69 02/19 735 Temp 98.0 02/19 07 Pulse 81 02/19 0735 Resp 18 02/19 735 Appearance - PE Awake, Alert, No distress Neck - PE Large, tense, R sided mass HEENT - PE Head atraumatic, Eyes normal inspection, PERRLA Respiratory - PE Lungs sound clear, Respirations non-labored Cardiovascular - PE Rate WNL, Rhythm regular Neurological - PE Alert, Oriented x 3, No motor deficit Abdomen - PE Abdomen soft, Non-tender, No distension Extremity - PE Normal appearance, No pedal edema Skin - PE Color normal, Skin warm, dry Additional Laboratory Tests 02/19 02/19 02/18 02/18 0825 0547 2343 1851 Chemistry Sodium (136 - 145 MMOL/L) 137 Potassium (3.5 - 5.1 MMOL/L) 4.3 Chloride (98 - 107 MMOL/L) 105 Carbon Dioxide (21 - 32 MMOL/L) 27.0 Anion Gap (5 - 16 MMOL/L) 5 BUN (7 - 26 MG/DL) 19 Creatinine (0.510 - 0.950 MG/DL) 1.34 H Est GFR ( Amer) 49 Est GFR (Non-Af Amer) 41 BUN/Creatinine Ratio (15 - 24) 14 L Glucose (70 - 100 MG/DL) 210 H Whole Bld Glucose (85 - 125 MG/DL) 219 H 287 H 307 H Total Calcium (8.5 - 10.5 MG/DL) 8.4 L Hematology WBC (4.5 - 11.0 K/CUMM) 9.3 RBC (3.90 - 5.30 M/CU MM) 3.89 L Hgb (11.5 - 15.5 G/DL) 12.6 Hct (35.0 - 47.0 %) 36.7 MCV (80.0 - 99.0 fl) 94.3 MCHC (32.0 - 36.0 GM/DL) 34.3 RDW (11 - 14.5) 12.8 Plt Count (150 - 450 K/CU MM) 68 L MPV (9.4 - 12.4) 10.4 Nucleated RBCs (Less than 1 %) 0.0 02/18 1557 Chemistry Sodium (136 - 145 MMOL/L) 136 Potassium (3.5 - 5.1 MMOL/L) 4.5 Chloride (98 - 107 MMOL/L) 102 Carbon Dioxide (21 - 32 MMOL/L) 27.0 Anion Gap (5 - 16 MMOL/L) 7 BUN (7 - 26 MG/DL) 21 Creatinine (0.510 - 0.950 MG/DL) 1.37 H Est GFR ( Amer) 48 Est GFR (Non-Af Amer) 40 BUN/Creatinine Ratio (15 - 24) 15 Glucose (70 - 100 MG/DL) 262 H Total Calcium (8.5 - 10.5 MG/DL) 8.7 Hematology WBC (4.5 - 11.0 K/CUMM) 11.4 H RBC (3.90 - 5.30 M/CU MM) 4.51 Hgb (11.5 - 15.5 G/DL) 14.6 Hct (35.0 - 47.0 %) 42.9 MCV (80.0 - 99.0 fl) 95.1 MCHC (32.0 - 36.0 GM/DL) 34.0 RDW (11 - 14.5) 12.7 Plt Count (150 - 450 K/CU MM) 91 L MPV (9.4 - 12.4) 10.6 Immature Gran % (Auto) (Less than 2 %) 0.8 Abs Immat Gran (auto) (Less than 2 K/CU MM) 0.10 Seg Neutrophils % (45 - 75 %) (more content not included)... Normal [facility] 02-19-2021 [facility] Patient Name: YARA BETH [address] Date of : 64 [place], [place] [address] Unit Number: [id number] Progress Note-Hospitalist Patient Status: ADM IN Attending Doctor: Skyler Fregoso DO Service Date: 02/19/21 1226 Chief Complaint Chief Complaint Neck mass Subjective S: (2 ROS minimum) 52-year-old female with medical history of diabetes gastroesophageal reflux disease hepatic steatosis thrombocytopenia. Patient presents the hospital with complaints of right neck mass patient seen outpatient ENT recommended evaluation in the hospital. In the hospital patient was found to have fluid-filled collection 7 cm on the right neck around the sternocleidomastoid muscle. Patient empirically started on IV antibiotics. Findings on imaging are suggestive of hematoma. Patient was seen by ENT recommending for IR drainage of the region with results sent to pathology. Patient denies fevers chills nausea vomiting. Objective (ROS) Nursing Vitals Vital Signs (Last) Result Date Time Pulse Ox 93 02/19 735 B/P 141/69 02/19 735 Temp 98.0 02/19 735 Pulse 81 02/19 735 Resp 18 02/19 735 General Appearance GEN: Pt is not in acute distress HEENT: normocephalic. PEERL. nonicteric. Right sternocleidomastoid fluid-filled mass. PULM: B/l VBS, CTA CV: S1 S2 normal, no m/r/g ABD: no organomegaly. soft. Nontender. no ascites. no rebound. Obesity. EXT: no edema. no cyanosis Neuro: CN 2-12 intact. alert. coherent. verbal. MAEx4. SKIN: no diaphoresis. no jaundice. decent perfusion. Diagnostic Data: Lab 24hr (CBC/BMP [facility]) 02/19/21 1149: Whole Bld Glucose 306 H 02/19/21 0825: Whole Bld Glucose 219 H 02/19/21 0547: [Embedded Image Not Available] Anion Gap 5, Est GFR ( Amer) 49, Est GFR (Non-Af Amer) 41, BUN/Creatinine Ratio 14 L, Glucose 210 H, Total Calcium 8.4 L, RBC 3.89 L, MCV 94.3, MCHC 34.3, RDW 12.8, MPV 10.4 , Nucleated RBCs 0.0 02/18/21 2343: Whole Bld Glucose 287 H 02/18/21 1851: Whole Bld Glucose 307 H 02/18/21 1557: [Embedded Image Not Available] Anion Gap 7, Est GFR ( Amer) 48, Est GFR (Non-Af Amer) 40, BUN/Creatinine Ratio 15, Glucose 262 H, Total Calcium 8.7, RBC 4.51, MCV 95.1, MCHC 34.0, RDW 12.7, MPV 10.6, Immature Gran % (Auto) 0.8, Abs Immat Gran (auto) 0.10, Seg Neutrophils % 80.2 H, Lymphocytes % 10.2 L, Monocytes % 7.8, Eosinophils % 0.7, Basophils % 0.3, Neutrophils # 9.10 H, Lymphocytes # 1.20, Monocytes # 0.90, Eosinophils # 0.10, Basophils # 0.00, Nucleated RBCs 0.0, Platelet Estimate MOD DECREASED, Poikilocytosis 1+ Assessment and Plan Conclusion 1. Neck mass Neck mass concerning for possible hematoma malignancy versus infectious etiology. IV antibiotics Appreciate assistance from ENT and ID Patient has been planned for IR drainage of neck mass We will await pathology results Restart home medications Monitor glucose A.m. labs Full code 2. Diabetes mellitus 3. GERD (gastroesophageal reflux disease) 4. Hepatic steatosis Disclaimer This dictation was created using voice recognition software. Phonetic and/or minor grammatical errors may exist. eSign Date and Time Andrey Alvarado MD Verified/Reviewed by 02/19/21 1230 Normal [facility] Progress Note-Hospitalist Normal [facility] PTon 02-19-2021 INR Coag (PPP) [Relative time] 1.19 {INR} High 0.9-1.1 [facility] Comment on above: Order Comment: Heidi s: Gianna Result Comment: Olayinka mmended PT INR therapeutic range for fpc and prophylactic therapy is 2.0 - 3.0. For heart valve and shunt patients the range is 2.5 - 3.5. Performed By: #### L 200.84761 #### [facility] [address] [place] [address] PTS 12.6 SECONDS High 9.5-12.0 [facility] Comment on above: Order Comment: Heidi Katz Performed By: #### L 200.54514 #### [facility] [address] [place] [address] PTTon 02-19-2021 aPTT Coag (Bld) [Time] 26.5 s Normal 22.0-31.5 [facility] Comment on above: Order Comment: Heidi carpenter: Gianna Result Comment: Ther apeutic Heparin Reference Range: High Dose: 46-75 seconds (DVT/PE) Low Dose: 39-60 seconds (Acute Coronary Syndrome) For low molecular weight heparin or danaparoid, monitoring is often NOT necessary, but the heparin assay, Xa inhibition assay (send-out) may be used in certain circumstances, as the PTT is generally insensitive to the effect of these agents. Direct thrombin inhibitors are becoming more widely utilized and these drugs are often monitored using the PTT. Performed By: #### L 200.55900 #### [facility] [address] [place] [address]# [phone] BIOPSY TRANSCATHETER X/R MEJIA Curry 02-18-2021 BIOPSY TRANSCATHETER X/R MALINDA BIOPSY TRANSCATHETER X/R S&I, US GUIDANCE FOR NEEDLE BX Ordering Physician: Ruchi Cerda 02/20/2021 11:07 AM ULTRASOUND-GUIDED RIGHT NECK MASS BIOPSY Clinical Statement: Large complex right neck mass Sedation time: None PROCEDURE: After informed consent was obtained the patient was placed supine on the cart in the angiography area. The right neck was prepped and draped in usual sterile fashion. After local infiltrative anesthesia with 2% plain lidocaine four 18-gauge core biopsies were obtained of the right neck mass under direct ultrasound visualization. Specimens were given directly to pathology for processing At the close of procedure hemostasis was maintained. Band-Aid was applied. Approximately five minutes after the end of the procedure the patient became very nauseated with a single episode of emesis and rigors. The patient's temperature elevated slightly to 99.5. The patient never developed tachycardia or hypotension. The presumptive diagnosis of postbiopsy sepsis was made. The patient's managing service was called to the patient. Upon arrival the patient's symptoms had abated. The managing service was willing to take the patient back to her room for careful monitoring. Before the patient couldn't be transported a second wave of nausea and rigors occurred. This lasted approximately five minutes before it abated. There was no associated tachycardia or hypotension. The patient's temperature elevated to approximately 101. The managing service was immediately contacted and ICU admission was planned for careful monitoring for possible developing sepsis. IMPRESSION: Successful ultrasound-guided right neck mass biopsy. The patient developed sepsis after the biopsy. The patient will be transferred to the intensive care unit for careful monitoring. ---- Electronic Signature on File ---- Signed By: Michael Graf MD [email or web address] Dictated: 02/20/2021 1:57 PM Signed: 02/20/2021 2:09 PM Reported By: MICHAEL GRAF M.D. Signed By: MICHAEL GRAF M.D. Normal [facility] BMPon 02-18-2021 Anion gap [Moles/Vol] 7 mmol/L Normal 5-16 [facility] Comment on above: Order Comment: Campu s: M Performed By: #### L 500.13425, L500.13163, L500.00671 #### [facility] [place] [address] Calcium [Mass/Vol] 8.7 mg/dL Normal 8.5-10.5 [facility] Comment on above: Order Comment: Campu s: M Result Comment: NOTE NEW NORMAL RANGE DUE TO REAGENT CHANGE Performed By: #### L 500.64599, L500.12307, L500.78502 #### [facility] [address] [place] [address] Chloride [Moles/Vol] 102 mmol/L Normal 98-107 [facility] Comment on above: Order Comment: Campu s: M Performed By: #### L 500.37146, L500.68604, L500.76021 #### [facility] [address] [place] [address] CO2 [Moles/Vol] 27.0 mmol/L Normal 21-32 [facility] Comment on above: Order Comment: Campu s: M Performed By: #### L 500.13420, L500.77403, L500.76366 #### [facility] [address] [place] [address] Creatinine [Mass/Vol] 1.37 mg/dL High 0.510- 0.95 0 [facility] Comment on above: Order Comment: Campu s: M Result Comment: Cori ents receiving either N-Acetylcysteine (NAC) or Metamizole prior to venipuncture, may have falsely depressed results. Performed By: #### L 500.20326, L500.52985, L500.12117 #### [facility] [address] [place] [address] Glucose [Mass/Vol] 262 mg/dL High 70-100 [facility] Comment on above: Order Comment: Campu s: M Result Comment: 70-1 00- Normal Fasting; 100-125 Impaired Fasting; greater than 126 on more than one result- Diabetes. ADA guidelines. Results may be falsely elevated after the administration of Sulfapyridine. Results may be falsely depressed after the administration of Sulfasalazine. Performed By: #### L 500.43997, L500.47639, L500.29808 #### [facility] [address] [place] [address] Potassium [Moles/Vol] 4.5 mmol/L Normal 3.5-5.1 [facility] Comment on above: Order Comment: Campu s: M Result Comment: Slig ht Hemolysis, Result may be affected. Performed By: #### L 500.63372, L500.32198, L500.67187 #### [facility] [address] [place] [address] Sodium [Moles/Vol] 136 mmol/L Normal 136-145 [facility] Comment on above: Order Comment: Campu s: M Performed By: #### L 500.89568, L500.55978, L500.40605 #### [facility] [address] [place] [address] Urea nitrogen [Mass/Vol] 21 mg/dL Normal 7-26 [facility] Comment on above: Order Comment: Campu s: M Performed By: #### L 500.58929, L500.09711, L500.31323 #### [facility] [address] [place] [address] Urea nitrogen/Creatinine [Mass ratio] 15 mg/mg Normal 15-24 [facility] Comment on above: Order Comment: Campu s: M Performed By: #### L 500.41468, L500.35492, L500.57266 #### [facility] [address] [place] [address] CBC W/DIFFon 02-18-2021 BASO ABS 0.00 K/CU MM Normal 0-0.2 [facility] Comment on above: Order Comment: Campu s: M Performed By: #### L 550.26790 #### [facility] [address] [place] [address] Basophils/100 WBC (Bld) 0.3 % Normal 0-2 [facility] Comment on above: Order Comment: Campu s: M Performed By: #### L 550.53344 #### [facility] [address] [place] [address] EOS ABS 0.10 K/CU MM Normal 0-0.5 [facility] Comment on above: Order Comment: Campu s: M Performed By: #### L 550.23517 #### [facility] [address] [place] [address] Eosinophils/100 WBC (Bld) 0.7 % Normal 0-5 [facility] Comment on above: Order Comment: Campu s: M Performed By: #### L 550.43181 #### [facility] [address] [place] [address] Erythrocyte distribution width (RBC) [Ratio] 12.7 % Normal 11-14.5 [facility] Comment on above: Order Comment: Campu s: M Performed By: #### L 550.26432 #### [facility] [address] [place] [address] Hematocrit (Bld) [Volume fraction] 42.9 % Normal 35.0-47.0 [facility] Comment on above: Order Comment: Campu s: M Performed By: #### L 550.61156 #### [facility] [address] [place] [address] Hemoglobin (Bld) [Mass/Vol] 14.6 g/dL Normal 11.5-15.5 [facility] Comment on above: Order Comment: Campu s: M Performed By: #### L 550.97776 #### [facility] [address] [place] [address] IMMATR GRAN ABS 0.10 K/CU MM Normal Less than 2 [facility] Comment on above: Order Comment: Campu s: M Performed By: #### L 550.88468 #### [facility] [address] [place] [address] IMMATURE GRAN % 0.8 % Normal Less than 2 [facility] Comment on above: Order Comment: Campu s: M Performed By: #### L 550.92281 #### [facility] [address] [place] [address] LYMPH ABS 1.20 K/CU MM Normal 0.9-4.4 [facility] Comment on above: Order Comment: Campu s: M Performed By: #### L 550.49064 #### [facility] [address] [place] [address] Lymphocytes/100 WBC (Bld) 10.2 % Low 20-40 [facility] Comment on above: Order Comment: Campu s: M Performed By: #### L 550.69396 #### [facility] [address] [place] [address] MCHC (RBC) [Mass/Vol] 34.0 g/dL Normal 32.0-36.0 [facility] Comment on above: Order Comment: Campu s: M Performed By: #### L 550.95509 #### [facility] [address] [place] [address] MCV (RBC) [Entitic vol] 95.1 fL Normal 80.0-99.0 [facility] Comment on above: Order Comment: Campu s: M Performed By: #### L 550.84984 #### [facility] [address] [place] [address] MONO ABS 0.90 K/CU MM Normal 0.1-1.1 [facility] Comment on above: Order Comment: Campu s: M Performed By: #### L 550.53879 #### [facility] [address] [place] [address] Monocytes/100 WBC (Bld) 7.8 % Normal 2-10 [facility] Comment on above: Order Comment: Campu s: M Performed By: #### L 550.62109 #### [facility] [address] [place] [address] NEUTROPHIL ABS 9.10 K/CU MM High 2.0-8.3 [facility] Comment on above: Order Comment: Campu s: M Performed By: #### L 550.06281 #### [facility] [address] [place] [address] Neutrophils/100 WBC (Bld) 80.2 % High 45-75 [facility] Comment on above: Order Comment: Campu s: M Performed By: #### L 550.95581 #### [facility] [address] [place] [address] Nucleated RBC/100 WBC (Bld) [Ratio] 0.0 % Normal Less than 1 [facility] Comment on above: Order Comment: Campu s: M Performed By: #### L 550.01858 #### [facility] [address] [place] [address] Platelet mean volume (Bld) [Entitic vol] 10.6 fL Normal 9.4-12.4 [facility] Comment on above: Order Comment: Campu s: M Performed By: #### L 550.48841 #### [facility] [address] [place] [address] PLT 91 K/CU MM Low 150-450 [facility] Comment on above: Order Comment: Campu s: M Result Comment: Conf irmed by slide estimate. Performed By: #### L 550.69841 #### [facility] [address] [place] [id number] PLT EST MOD DECREASED Normal [facility] Comment on above: Order Comment: Campu s: M Performed By: #### L 550.86170 #### [facility] [address] [place] [address] POIK 1+ Normal [facility] Comment on above: Order Comment: Campu s: M Performed By: #### L 550.01716 #### [facility] [address] [place] [address] RBC 4.51 M/CU MM Normal 3.90-5.30 [facility] Comment on above: Order Comment: Campu s: M Performed By: #### L 550.51501 #### [facility] [address] [place], [place] [id number] WBC 11.4 K/CUMM High 4.5-11.0 [facility] Comment on above: Order Comment: Campu s: M Performed By: #### L 550.86357 #### [facility] [address] [place], [place] [id number] Hung 02-18-2021 EMERGENCY PHYSICIAN REPORT This is a preliminary report only, as the practitioner review and authentication has not occurred. Normal [facility] ER PHYSICIAN ASSESSMENT RECORDS : FlexChartData Event Time: 02/17/2021 21:35 Status: Signed [facility] Yara Beth [[id number]] Attending Physician 60 / F / 1960 Chart (V2b) Chart created at 02/17/2021 21:27 by Kem Watson Chart closed at 02/17/2021 21:50 Entry in Emergency Department at 02/17/2021 15:53 Patient Name: Yara Beth Record Number: [id number] Date: 02/17/2021 21:27 Entered Department at: 02/17/2021 15:53 Patient Seen at: 02/17/2021 18:57 PCP: darryl nam Chief Complaint:PT REPORTS RIGHT NECK AND RIGHT SIDED FACIAL SWELLING SINCE January. PT SEEN SEVERAL TIMES AND GIVEN IV ANTIBIOTICS WITH NO RELIEF. PT DENIES COVID. CBC W/DIFF, information as of 02/17/2021, 4:36 pm 94.0 / 16.1* / 12.0* andgt;------andlt; 81* / 46.7 / N:82.0* BASO ABS: 0.00 K/Cu Mm; BASOPHIL %: 0.3 %; EOS ABS: 0.10 K/Cu Mm; EOSINOPHIL %: 0.4 %; IMMATR GRAN ABS: 0.10 K/Cu Mm; IMMATURE GRAN %: 0.8 %; LYMPH %: 9.1 %; LYMPH ABS: 1.10 K/Cu Mm; MCHC: 34.5 Gm/Dl; MONO ABS: 0.90 K/Cu Mm; MONOCYTE %: 7.4 %; MPV: 10.1; NEUTROPHIL ABS: 9.80 K/Cu Mm; NRBC: 0.0 %; RBC: 4.97 M/Cu Mm; RDW: 12.4 BMP, information as of 02/17/2021, 4:36 pm [facility] PATIENT NAME: YARA BETH [address] MEDICAL REC #: [id number] [place] [address] EMERGENCY DEPARTMENT REPORT EMERGENCY DEPARTMENT PHYSICIAN 135* --------+--------+--------an scott; 240* Anion Gap = 5 4.3 BUN/CREA: 17; CALCIUM TOTAL: 9.1 Mg/Dl LACTATE BLOOD, information as of 02/17/2021, 7:15 pm LACTATE BLOOD: 1.68 Mmol/L [id number], information as of 02/17/2021, 7:16 pm [id number]: Neg Imaging Study Obtained: CT NECK SOFT TISSUE WITH CON Radiology: Interpreted by Radiologist. Medical Decision Making Patient does have a large soft tissue mass on the right side of her neck. She is handling her own secretions without difficulty. She does not have any drooling or stridor at this time. Her vital signs were otherwise stable. I was contacted by the radiologist in regards to the etiology of this mass. He felt that it was a fluid collection possibly hematoma. Less likely to be abscess due to the lack of enhancement. Less likely to be malignancy. Given its overall size and the fact that she has been followed by an ENT specialist out of town without any improvement, I think she will need second opinion by ENT here at [facility]. I did speak with Dr. Saleh on-call for ENT. He felt that he would like to see the patient in the office in the next couple of days for further evaluation of this neck mass. In the interim, the patient is remained clinically stable. Handling her own secretions, and breathing comfortably with stable vital signs. Seems to be phonating normally. So she will be advised to continue her current antibiotics and follow-up in the ENT office soon as possible. Clinical Impression: 1. Right neck mass, hematoma versus abscess Disposition: Admitted . [facility] PATIENT NAME: YARA BETH [facility] Dr. [address] MEDICAL REC #: [id number] [place] [address] EMERGENCY DEPARTMENT REPORT EMERGENCY DEPARTMENT PHYSICIAN MSE completed. I was the primary ED attending.. I confirm that I have evaluated the patient, reviewed the mid-level providers documentation, and discussed the evaluation, plan of care and disposition of the patient with the mid-level provider.. : Mindy Event Time: 02/17/2021 21:35 YUDELKA Status: Signed [facility] Yara Beth [[id number]] Mid-Level Chart (V2b) 60 / F / 1960 Chart created at 02/17/2021 21:28 by Michael Rodriguez Chart closed at 02/17/2021 21:30 Entry in Emergency Department at 02/17/2021 15:53 Patient Name: Yara Bteh Record Number: [id number] Date: 02/17/2021 21:28 Entered Department at: 02/17/2021 15:53 Patient Seen at: 02/17/2021 18:57 PCP: darryl nam Chief Complaint:PT REPORTS RIGHT NECK AND RIGHT SIDED FACIAL SWELLING SINCE January. PT SEEN SEVERAL TIMES AND GIVEN IV ANTIBIOTICS WITH NO RELIEF. PT DENIES COVID. History of Present Illness: Patient presents with 2 weeks of worsening right neck mass. She states she was seen multiple times at [place] [facility] with CAT scans. She states she was told there was something wrong with her parotid gland and that she needed to follow-up with ENT. She states when she followed up with ENT she states the doctor just looked at her history of her head and stated he had never seen a thing like this before. I asked the [facility] Zurdo (more content not included)... [facility]-18-2021 IF AMER 48 [facility] Comment on above: Order Comment: Heidi s: M Performed By: #### L 500.25988, L500.24938, L500.10514 #### [facility] [address] [place] [address] IF non-AFR AMER 40 Normal [facility] Comment on above: Order Comment: Heidi carpenter: M Performed By: #### L 500.95121, L500.15080, L500.02583 #### [facility] [address] [place] [address] GLUCOSE METERon 02-18-2021 Glucose [Mass/Vol] 307 mg/dL High 85-125 [facility] HP.IMS.ADMon 02-18-2021 Admission-H&P Normal [facility] HP.IMS.ADM [facility] Patient Name: YARA BETH [address] [facility] Date of : [address] [place], [place] [address] Unit Number: [id number] Admission-HandP Patient Status: ADM IN Attending Doctor: Skyler Fregoso DO Service Date: 02/18/21 1645 History of Present Illness Source of Information Patient Chief Complaint/Present Illness: Enlarging right neck mass with change in voice and shortness of breath Living Situation Home - Independent History of Present Illness Yara Beth is a very pleasant 60-year-old female with a past medical history significant for diabetes, GERD, hepatic steatosis, and thrombocytopenia who initially presented to [facility] yesterday with complaints of worsening right neck mass, at that time it was felt that she could follow-up with ENT as an outpatient very closely, she did see ENT in [place] today and additionally had an appointment scheduled tomorrow with Dr. Fabien Saleh for a second opinion and at that appointment today ENT could not drain the mass and recommended inpatient admission with IV antibiotics. She has been direct admitted to [facility] and states the mass is even bigger today and that she does have some difficulty swallowing large pills and is having some shortness of breath. This issue began February 02, she had an enlarged tonsil and she states that Dr. Newman in [place] drained greenish-olvera material and placed her on antibiotics, at this point she has been on amoxicillin and clindamycin. She states she is on last week and she could not drain it then and that is when he placed her on the clindamycin. Her white count is mildly elevated at 11.4. CT soft tissue of the neck performed last night showed the following: Large 7 cm fluid collection in the right neck seemingly arising from the right sternocleidomastoid muscle with insinuation into the deeper neck spaces on the right. There are some areas of nonuniform peripheral enhancement. Findings may reflect a large evolving hematoma. Infectious etiology considered less likely as is neoplasm. There is displacement of the right oropharyngeal mucosa and faucial tonsil with moderate to marked oropharyngeal airway narrowing. She has been admitted to [facility] with consults to ENT and ID for further evaluation management. Past Medical/Surgical Hx Past Medical History Diabetes GERD Hepatic steatosis Chronic thrombocytopenia Kidney stones Past Surgical History Lithotripsy Bilateral myringotomy tubes Cleft palate surgery Cholecystectomy Family/Social History Family History FATHER (HEART DISEASEBLOOD CLOTELEVATED BP AND CHOLESTROL). MOTHER (HEART ISSUES). . Substances Denies use of: Alcohol, Tobacco, Recreational Drugs. 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 [place] Advance Directives Advance Directives Full Code Allergies/Home Medications Allergies Coded Allergies: MEPERIDINE (From DEMEROL) (Severe, 02/18/21) Home Medications Budesonide/Formoterol Fum (Symbicort 160/4.5 Mcg INH) 1 PUFF HFA.AER.AD 2 PUFF INH QIDPRN PRN Shortness of Breath, Ref 0 (Reported) Entered as Reported by KRYSTAL SIMS on 02/18/211636 Last Action: Continued on 02/18/211650 by SKYLER FREGOSO Levocetirizine Dihydrochloride 5 MG TABLET 5 MG PO QDAY, Ref 0 (Reported) Entered as Reported by KRYSTAL SIMS on 02/18/21 1635 Last Action: Held on 02/18/211650 by SKYLER FREGOSO Pantoprazole* (Protonix 40MG Tab*) 40 MG TABLET.DR 40 MG PO QDAYAC, Ref 0 (Reported) Entered as Reported by KRYSTAL SIMS on 02/18/21 1635 Last Action: Continued on 02/18/211650 by SKYLER FREGOSO Sitagliptin Phosphate* (Januvia Tab*) 50 MG TABLET 50 MG PO QDAYWM, Ref 0 (Reported) Entered as Reported by KRYSTAL SIMS on 02/18/21 1636 Last Action: Continued on 02/18/211650 by SKYLER FREGOSO Spironolactone* (Aldactone 100MG Tab*) 100 MG TABLET 100 MG PO QDAYWM, Ref 0 (Reported) Entered as Reported by KRYSTAL SIMS on 02/18/21 1633 Last Action: Continued on 02/18/211650 by SKYLER FREGOSO Inpatient Medications Medications Current Sig/Daniel Start time Last Medication Dose Route Stop Time Status Admin Acetaminophen 650 MG Q4HPRN PRN 02/19 1200 AC (TYLENOL TAB) PO Al Hydrox/Mg Hydrox/ 30 ML Q6HPRN PRN 02/18 1200 AC Simethicone PO (MAALOX (ALAMAG)PLUS ORAL LIQ) Albuterol Sulfate 2.5 MG BID@1200,1600 02/20 1200 AC (VENTOLIN/PROVENTIL INH 2.5MG/3ML INH.NEB) Albuterol Sulfate 2.5 MG BID@0800,02/18 AC (VENTOLIN/PROVENTIL INH 2.5MG/0.5ML INH.NEB) Benzocaine/Menthol 1 HERON Q2HPRN PRN 02/19 1200 AC (CEPACOL LOZENGE) MM Bisacodyl 10 MG QDAYPRN PRN 02/18 1200 AC (DULCOLAX RECT) RC Budesonide 0.5 MG BID@0800,02/18 AC (PULMOCORT 0.5MG/2ML INH INH.NEB) Guaifenesin/ 10 ML Q4HPRN PRN 02/18 1200 AC (more content not included)... [facility] [place] ORon 02-18-2021 OPERATIVE REPORT Normal [facility] OR DATE OF SERVICE: 08/2020 PREOPERATIVE DIAGNOSIS: Right neck mass. POSTOPERATIVE DIAGNOSIS: Right neck mass versus abscess. OPERATION: Incisional biopsy and drainage of right neck abscess. SURGEON: Prashant Hernandez MD ANESTHESIA: General. DRAINS: A 7-mm flat drain. SPECIMENS: Aerobic and anaerobic and tissue cultures as well as right neck mass. BLOOD LOSS: 40 mL. COMPLICATIONS: None. INDICATIONS FOR PROCEDURE: This is an uncontrolled diabetic woman who has been in the hospital all week with a large right neck abscess that has apparently been brewing for the second half of January (at least 2 weeks) but without a white count or fever. Concern, after a core needle biopsy earlier this week showed inflammatory lymphocytes, was that she was, in fact, dealing with perhaps a lymphoma. [facility] PATIENT NAME: YARA BETH [facility] Dr[facility] Chacon MEDICAL REC #: [id number] [place] [address] ADMIT DATE: 02/18/21 DISCHARGE DATE: 02/27/21 OPERATIVE REPORT ATTENDING PHY: Melanie Carmona MD Unfortunately, she also suffers from thrombocytopenia. I was asked to put her on my OR schedule today for an incisional biopsy. Looking at her neck in the preop area, she had obvious erythema and fluctuance over the large neck mass. She also had a history of some ipsilateral tonsillar infection in the recent past. My concern was that we could possibly be dealing with a cystic metastasis of right tonsillar cancer. Nevertheless, all risks and benefits were explained to the patient and consent was obtained. DESCRIPTION OF PROCEDURE: Patient brought to the operating room, placed in supine position. After successful induction of general anesthesia, the head of the bed was turned 90 degrees. A large apron incision was drawn over the 7- to 8-cm right neck mass and the area was injected with lidocaine with epinephrine. The entire right neck and face were prepped and draped in sterile fashion. A 15 blade scalpel was used to make a portion of the apron incision over the largest fluctuant portion of the right neck mass. The dissection was carried sharply down through the platysma layer. Deep to the platysma was the abscess cavity. This was entered sharply and an [facility] PATIENT NAME: [facility] MEDICAL REC #: [id number] [place] [address] ADMIT DATE: 02/18/21 DISCHARGE DATE: 02/27/21 OPERATIVE REPORT ATTENDING PHY: Melanie Carmona MD impressive amount of thick pus was produced. Aerobic, anaerobic, and tissue cultures were all sent. I incised a piece of the abscess cavity and sent it for frozen section analysis, which was returned consistent with fibrous inflammatory tissue. I will send another piece for flow cytometry. But essentially once in the antrum of the abscess cavity, there was no other tissue; it was just an empty cavity. I irrigated with copious amounts of sterile saline. Then, because of her thrombocytopenia, I did not want to bring a drain out through a corner of the incision because I was afraid it would just bleed all night and make wound care difficult, so I brought out a flat drain from a separate stab incision and secured it to the patient's skin with a single nylon stitch. I had to place a piece of Surgicel even in the drain site because that was bleeding. I placed some Surgicel in the abscess cavity as well and then performed a multilayered closure, closing the platysma layer with interrupted buried Vicryl sutures. The overlying skin was closed with a running nylon stitch. The wound was dressed with antibiotic ointment. Care of the patient returned to the anesthesia team. She was brought out from general anesthesia in unremarkable fashion, taken to the post-anesthesia care [facility] PATIENT NAME: [facility] MEDICAL REC #: [id number] [place] [address] ADMIT DATE: 02/18/21 DISCHARGE DATE: 02/27/21 OPERATIVE REPORT ATTENDING PHY: Melanie Carmona MD unit. Prashant Hernandez MD [id number] SSI File#: [id number] END OF DOCUMENT / CHANGE LOG FOLLOWS Last Edited By Elec. Signed By Prashant Hernandez MD #MILAGROSAA Prashant Hernandez MD #BREMARVA on 03/15/2021 10:03 ET on 03/15/2021 10:03 ET Revision Number - 2 Verified/Reviewed by 03/15/21 1003 YUDELKA [facility] PATIENT NAME: [facility] (more content not included)... Normal [facility] PHA.NOTEon 02-18-2021 PHA.NOTE [facility] Patient Name: YARA BETH [address] Date of : [address] [place], [place] [address] Unit Number: [id number] Pharmacy Note Patient Status: ADM IN Attending Doctor: Skyler Fregoso DO Service Date: 02/18/211951 Pharmacy Note - VANCO INIT Initial Note Subjective: Pharmacy to dose vancomycin Assessment: * Patient is a 60 year old Female started on empiric antibiotics for a suspected infection. Patient has been initiated on vancomycin and zosyn. * Height (cm): 154.94 * BMI (kg/m2): 47.0 * Actual weight (kg): 112.94 * Dosing weight (adjusted body weight) (kg): 73.9 LABS 02/18/21 1557: Creatinine 1.37 H Plan: 1. Will dose vancomycin 1.25 grams ( 15 mg/kg based on adjusted body weight) every 24 hours given patient's renal function, age, and weight. 2. Will target goal trough 15-20. 3. Will order trough before third dose of this regimen and adjust as necessary. Disclaimer This dictation was created using voice recognition software. Phonetic and/or minor grammatical errors may exist. eSign Date and Time Andrey Merlos - Pharmac Verified/Reviewed by 02/18/211953 [facility] Pharmacy Note [facility] [place] [place] [facility] YARA BETH [address] Date of : [address] [place] [address] Unit Number: [id number] Progress Note-Hospitalist Patient Status: DEP ER Attending Doctor: Kem Watson MD Service Date: 02/18/21350 Chief Complaint Chief Complaint neck swelling Subjective S: (2 ROS minimum) I did not evaluate this patient in the ER, final CT report was not reviewed until later in the evening, patient was d/c'ed from ER with ENT follow up, upon review CT there is note of some oropharyngeal encroachment from the fluid filled structure, I have attempted to call the patient multiple times for assessment. Will direct admit if she does not have close ENT follow up. Assessment and Plan Conclusion 1. Localized swelling, mass or lump of neck Disclaimer This dictation was created using voice recognition software. Phonetic and/or minor grammatical errors may exist. eSign Date and Time Skyler Fregoso DO Verified/Reviewed by 02/18/21353 [facility] Progress Note-Hospitalist [facility] US GUIDANCE FOR NEEDLE BXon 02-18-2021 US GUIDANCE FOR NEEDLE BX BIOPSY TRANSCATHETER X/R S&I, US GUIDANCE FOR NEEDLE BX Ordering Physician: Ruchi Cerda 02/20/2021 11:07 AM ULTRASOUND-GUIDED RIGHT NECK MASS BIOPSY Clinical Statement: Large complex right neck mass Sedation time: None PROCEDURE: After informed consent was obtained the patient was placed supine on the cart in the angiography area. The right neck was prepped and draped in usual sterile fashion. After local infiltrative anesthesia with 2% plain lidocaine four 18-gauge core biopsies were obtained of the right neck mass under direct ultrasound visualization. Specimens were given directly to pathology for processing At the close of procedure hemostasis was maintained. Band-Aid was applied. Approximately five minutes after the end of the procedure the patient became very nauseated with a single episode of emesis and rigors. The patient's temperature elevated slightly to 99.5. The patient never developed tachycardia or hypotension. The presumptive diagnosis of postbiopsy sepsis was made. The patient's managing service was called to the patient. Upon arrival the patient's symptoms had abated. The managing service was willing to take the patient back to her room for careful monitoring. Before the patient couldn't be transported a second wave of nausea and rigors occurred. This lasted approximately five minutes before it abated. There was no associated tachycardia or hypotension. The patient's temperature elevated to approximately 101. The managing service was immediately contacted and ICU admission was planned for careful monitoring for possible developing sepsis. IMPRESSION: Successful ultrasound-guided right neck mass biopsy. The patient developed sepsis after the biopsy. The patient will be transferred to the intensive care unit for careful monitoring. ---- Electronic Signature on File ---- Signed By: Michael Graf MD [email or web address] Dictated: 02/20/2021 1:57 PM Signed: 02/20/2021 2:09 PM Reported By: MICHAEL GRAF M.D. Signed By: MICHAEL GRAF M.D. Normal [facility] 02-17-2021 Anion gap [Moles/Vol] 5 mmol/L Normal 5-16 [facility] Comment on above: Order Comment: Heidi s: M Performed By: #### M 050.11096 #### [facility] [address] [place] [address] Calcium [Mass/Vol] 9.1 mg/dL Normal 8.5-10.5 [facility] Comment on above: Order Comment: Campu s: M Result Comment: NOTE NEW NORMAL RANGE DUE TO REAGENT CHANGE Performed By: #### M 050.16789 #### [facility] [address] [place] [address] Chloride [Moles/Vol] 105 mmol/L Normal 98-107 [facility] Comment on above: Order Comment: Campu s: M Performed By: #### M 050.15347 #### [facility] [address] [place] [address] CO2 [Moles/Vol] 25.0 mmol/L Normal 21-32 [facility] Comment on above: Order Comment: Campu s: M Performed By: #### M 050.20312 #### [facility] [address] [place] [address] Creatinine [Mass/Vol] 1.26 mg/dL High 0.510- 0.95 0 [facility] Comment on above: Order Comment: Campu s: M Result Comment: Cori ents receiving either N-Acetylcysteine (NAC) or Metamizole prior to venipuncture, may have falsely depressed results. Performed By: #### M 050.39315 #### [facility] [place] [id number] Glucose [Mass/Vol] 240 mg/dL High 70-100 [facility] Comment on above: Order Comment: Campu s: M Result Comment: 70-1 00- Normal Fasting; 100-125 Impaired Fasting; greater than 126 on more than one result- Diabetes. ADA guidelines. Results may be falsely elevated after the administration of Sulfapyridine. Results may be falsely depressed after the administration of Sulfasalazine. Performed By: #### M 050.86492 #### [facility] [address] [place] [address] Potassium [Moles/Vol] 4.3 mmol/L Normal 3.5-5.1 [facility] Comment on above: Order Comment: Campu s: M Result Comment: Slig ht Hemolysis, Result may be affected. Performed By: #### M 050.35217 #### [facility] [address] [place] [address] Sodium [Moles/Vol] 135 mmol/L Low 136-145 [facility] Comment on above: Order Comment: Campu s: M Performed By: #### M 050.59874 #### [facility] [address] [place] [address] Urea nitrogen [Mass/Vol] 22 mg/dL Normal 7-26 [facility] Comment on above: Order Comment: Campu s: M Performed By: #### M 050.95950 #### [facility] [address] [place] [address] Urea nitrogen/Creatinine [Mass ratio] 17 mg/mg Normal 15-24 [facility] Comment on above: Order Comment: Campu s: M Performed By: #### M 050.18372 #### [facility] [place] [address] CBC W/DIFFon 02-17-2021 BASO ABS 0.00 K/CU MM Normal 0-0.2 [facility] Comment on above: Order Comment: Campu s: M Performed By: #### L 200.71845 ####[facility] [id number] [place], [place] [address]Zq# [phone] Basophils/100 WBC (Bld) 0.3 % Normal 0-2 [facility] Comment on above: Order Comment: Campu s: M Performed By: #### L 200.65166 ####[facility] [id number] [place], [place] [address]Bv# [phone] EOS ABS 0.10 K/CU MM Normal 0-0.5 [facility] Comment on above: Order Comment: Campu s: M Performed By: #### L 200.45364 ####[facility] [id number] [place] [address]Yp# [phone] Eosinophils/100 WBC (Bld) 0.4 % Normal 0-5 [facility] [place] Comment on above: Order Comment: Campu s: M Performed By: #### L 200.94433 ####[place] [address]Ph# [phone] Erythrocyte distribution width (RBC) [Ratio] 12.4 % Normal 11-14.5 [facility] [place] Comment on above: Order Comment: Campu s: M Performed By: #### L 200.88687 ####[place] [address]Ph# [phone] Hematocrit (Bld) [Volume fraction] 46.7 % Normal 35.0-47.0 [facility] [place] Comment on above: Order Comment: Campu s: M Performed By: #### L 200.80118 ####[place] [address]Ph# [phone] Hemoglobin (Bld) [Mass/Vol] 16.1 g/dL High 11.5-15.5 [facility] [place] Comment on above: Order Comment: Campu s: M Performed By: #### L 200.34311 ####[facility] [id number] [place], [place] [address]Ph# [phone] IMMATR GRAN ABS 0.10 K/CU MM Normal Less than 2 [facility] [place] Comment on above: Order Comment: Campu s: M Performed By: #### L 200.02561 ####[facility] [id number] [place], [place] [address]Ph# [phone] IMMATURE GRAN % 0.8 % Normal Less than 2 [facility] [place] Comment on above: Order Comment: Campu s: M Performed By: #### L 200.25274 ####[facility] [id number] [place], [place] [address]Ph# [phone] LYMPH ABS 1.10 K/CU MM Normal 0.9-4.4 [facility] [place] Comment on above: Order Comment: Campu s: M Performed By: #### L 200.86039 ####[facility] [id number] [place], [place] [address]Oh# [phone] Lymphocytes/100 WBC (Bld) 9.1 % Low 20-40 [facility] [place] Comment on above: Order Comment: Campu s: M Performed By: #### L 200.59927 ####[facility] [id number] [place], [place] [address]Ph# [phone] MCHC (RBC) [Mass/Vol] 34.5 g/dL Normal 32.0-36.0 [facility] [place] Comment on above: Order Comment: Campu s: M Performed By: #### L 200.60040 ####[place] [address]Ph# [phone] MCV (RBC) [Entitic vol] 94.0 fL Normal 80.0-99.0 [facility] [place] Comment on above: Order Comment: Kevin[place] s: M Performed By: #### L 200.69843 ####[facility] [id number] [place] [address]Sl# [phone] MONO ABS 0.90 K/CU MM Normal 0.1-1.1 [facility] Comment on above: Order Comment: Campu s: M Performed By: #### L 200.66812 ####[facility] [id number] [place] [address]Xc# [phone] Monocytes/100 WBC (Bld) 7.4 % Normal 2-10 [facility] [place] Comment on above: Order Comment: Campu s: M Performed By: #### L 200.07897 ####[facility] [id number] [place] [address]Is# [phone] NEUTROPHIL ABS 9.80 K/CU MM High 2.0-8.3 [facility] [place] Comment on above: Order Comment: Campu s: M Performed By: #### L 200.34510 ####[facility] [id number] [place], [place] [address]Tb# [phone] Neutrophils/100 WBC (Bld) 82.0 % High 45-75 [facility] Comment on above: Order Comment: Campu s: M Performed By: #### L 200.19628 ####[facility] [id number] [place], [place] [address]Ut# [phone] Nucleated RBC/100 WBC (Bld) [Ratio] 0.0 % Normal Less than 1 [facility] Comment on above: Order Comment: Campu s: M Performed By: #### L 200.61439 ####[facility] [id number] [place], [place] [address]Va# [phone] Platelet mean volume (Bld) [Entitic vol] 10.1 fL Normal 9.4-12.4 [facility] Comment on above: Order Comment: Campu s: M Performed By: #### L 200.90577 ####[facility] [id number] [place], [place] [address]He# [phone] PLT 81 K/CU MM Low 150-450 [facility] Comment on above: Order Comment: Campu s: M Result Comment: Conf irmed by slide estimate. Performed By: #### L 200.75183 ####[facility] [id number] [place], [place] [address]Sy# [phone] RBC 4.97 M/CU MM Normal 3.90-5.30 [facility] Comment on above: Order Comment: Campu s: M Performed By: #### L 200.90784 ####[facility] [id number] [place] [address]Tz# [phone] WBC 12.0 K/CUMM High 4.5-11.0 [facility] Comment on above: Order Comment: Campu s: M Performed By: #### L 200.15649 ####[facility] [id number] [place] [address]Mw# [phone] NECK SOFT TISSUE WITH CON on 02-17-2021 CT NECK SOFT TISSUE WITH CON CT NECK SOFT TISSUE WITH CON HISTORY: Right neck pain and swelling for 2 weeks TECHNIQUE: CT neck soft tissues following intravenous administration of [address] Dose-Length Product (DLP): 508.6 mGy*cm CT Dose Reduction Employed: N/A COMPARISON: None. RESULT: There is a large heterogeneous fluid collection in the right neck measuring up to 7.0 x 5.4 x 5.8 cm in greatest orthogonal dimensions. This is centered near the right sternocleidomastoid muscle without intervening fat plane appears to partially involve the muscle. The sternocleidomastoid muscle is enlarged at the inferior margin. There is superior deviation of the right parotid gland and anterior deviation of a mildly enlarged right submandibular gland. Enhancement and enlargement of the right submandibular gland may be reactive due to adjacent inflammation. There ia scattered soft tissue stranding in the overlying fat. There is a multilobulated appearance with additional lobulated component extending superiorly along the posterior aspect of the right mandibular angle. There is a heterogeneously hyperdense/enhancing component extending towards the right parapharyngeal region with asymmetric mucosal enhancement and prominence along the right hypopharynx. Superiorly streak artifact limits evaluation. The right parapharyngeal fat is effaced. Enhancing soft tissue surrounds the distal right internal carotid artery appears relatively symmetric to the contralateral side however is poorly evaluated distally secondary streak artifact from dental amalgam. Lymph nodes: No cervical lymphadenopathy by size, number or morphologic criteria. Small nonspecific lymph nodes are scattered throughout the neck. Aerodigestive tract: The oral cavity is partially obscured by artifact from dental amalgam. There is moderate effacement of the oropharyngeal airway secondary to displacement of the right faucial tonsil medially. The nasal cavities, naso-oropharynx, laryngeal structures and infraglottic trachea are within normal limits. Major salivary glands: Displacement of the right parotid and submandibular glands with mild inflammatory enlargement as outlined. Thyroid gland: Within normal limits. Carotid space: Patent bilateral extracranial carotid and jugular systems. Extension of the fluid collection/soft tissue into the right carotid space without obvious compromise of the right distal ICA lumen within the constraints of the exam. Intracranial contents: Imaged portions within normal limits. Paranasal sinuses, middle ears, mastoids: Clear. Remote defect of the hard palate and anterior right maxilla Orbits: Within normal limits. Bones: No suspicious osseous lesions in the imaged calvarium, skull base and spine. Normal cervicothoracic alignment. Mild spondylotic changes. Temporomandibular joints are maintained. Lungs: Imaged lungs are clear. A chest CT was performed concurrently and is dictated separately. Betting Clerk (topogram) images: Non-diagnostic. IMPRESSION: Large 7 cm fluid collection in the right neck seemingly arising from the right sternocleidomastoid muscle with insinuation into the deeper neck spaces on the right. There are some areas of nonuniform peripheral enhancement. Findings may reflect a large evolving hematoma. Infectious etiology considered less likely as is neoplasm. There is displacement of the right oropharyngeal mucosa and faucial tonsil with moderate to marked oropharyngeal airway narrowing. COMMUNICATION: Findings were communicated with Dr. Watson at 2113 on 02/17/2021 via verbal communication. This report was electronically signed by Katharina Brandt DO 02/17/2021 9:21 PM Reported By: KATHARINA BRANDT DO Signed By: KATHARINA BRANDT DO [facility] GFR ESTon 02-17-2021 IF AMER 53 [facility] Comment on above: Order Comment: Kevin[place] s: M Performed By: #### M 050.29641 #### [facility] [address] [place] [address] IF non-AFR AMER 44 [facility] Comment on above: Order Comment: Campu s: M Performed By: #### M 050.14284 #### [facility] [address] [place] [address] LACTATE BLOODon 02-17-2021 LACTATE BLOOD 1.68 MMOL/L Normal 0.40-2.00 [facility] Comment on above: Order Comment: Campu s: M Performed By: #### L 500.94544, L500.40527, L500.75211 #### [facility] [place] [id number] 02-17-2021 SARS-CoV-2 (COVID-19) RNA CASA+probe Ql (Unsp spec) Negative Invalid Interpretation Code Negative [facility] Comment on above: Order Comment: Heidi carpenter: Gianna Result Comment: [facility] CALLED TO TonyFrancine ADAMS AT 2106 02/17/21 BY MERY LOPEZ Negative results do not preclude SARS-CoV-2 infection and should not be used as the sole basis for treatment or other patient management decisions. Negative results must be combined with clinical observation, patient history, and epidemiological information. This test was performed by PCR. Performed By: #### L [phone] #### [facility] [address] [place] [address]# [phone] [facility] ENT Nurseryman Assistant Progress Noteon 02-11-2021 AMB ENT Nurseryman Assistant Progress Note Patient: YARA BETH Age: 60 years Sex: Female : 1960 Associated Diagnoses: None Author: Sandie Medina Patient here to continuous pickling line pickler new snap fit earmolds and 60 gain receivers for her current hearing aids. Reset acoustics to earmold settings and program 2(restaurant), 3 (crowd),and 4 (auditorium) to Best Fit. Ran feedback canceller. Gave her a wax loop to clean canal portion of earmolds. Normal [facility] ENT Nurseryman Assistant Progress Noteon 01-14-2021 AMB ENT Nurseryman Assistant Progress Note Patient: YARA BETH Age: 60 years Sex: Female : 1960 Associated Diagnoses: None Author: Sandie Medina Patient is her to discuss options for hearing aids. She currently wears 2 [employer]ie[employer]elt DOMINIC hearing aids, from 2017 with 50 gain receivers installed and 9mm closed buds. The serial numbers are [id number] ans [id number], and she just purchased an extended warranty that expires 09-06-21. She does have some insurance coverage for new ones, but I think with earmolds and 60 gain receivers, she may have an improvement in speech recognition. Impressions were taken, and I ordered the stronger receivers when I was checking on the warranty. She paid in full for the earmolds today. If this does not improve things for her, we will go ahead with new ones. Normal [facility] AMB ENT Physician Progress N oteon 12-25-2020 AMB ENT Physician Progress Note Chief Complaint check hearing History of Present Illness Patient is here for evaluation of her hearing. She is a former patient of Dr. Goncalves. He has cleaned her ears out and put tubes in her ears in the past. She does wear hearing aids. Recently she feels though the hearing is slowly getting worse. She is here for evaluation. She does describe tinnitus although it is intermittent and not constant. Hearing seems about the same as far she can tell between left and right. She is here for further evaluation. Review of Systems Unremarkable other than her ears Physical Exam Vitals & Measurements Systolic Blood Pressure: 121 mmHg (12/25/20 10:13:00) Diastolic Blood Pressure: 79 mmHg (12/25/20 10:13:) Mean Arterial Pressure: 93 mmHg (12/25/20 10:13:00) Height/Length Measured: 155 cm (12/25/20 10:13:00) Weight Measured: 120 kg (12/25/20 10:13:00) Body Mass Index Measured: 49.95 kg/m2 (12/25/20 10:13:00) Weight Measured - lbs2: 264 lb (12/25/20 10:13:00) Height/Length Measured - in2: 61 in (12/25/20 10:13:00) Body Mass Index Measured English2: 49.88 kg/m2 (12/25/20 10:13:00) BSA: 2.27 m2 (12/25/20 10:13:00) Ht/Wt Measurement Refused by Patient?2: No (12/25/20 10:13:00) Depression Screening Scores Initial Depression Screen Score: 0 (12/25/20 10:13:00) Fall Risk Assessment Is the patient ambulatory (mobile): Yes (12/25/20 10:13:00) Have you had a fall within the past: No (12/25/20 10:13:00) Have you had 2 or more falls in the past: No (12/25/20 10:13:00) Evaluation of the right ear reveals an inferior perforation. It looks a little bit moist but the middle ear mucosa X looks relatively healthy without any obvious injection. The left ear appears to have an abscess of the incus. We therefore proceeded with audiometric testing. Audiometric testing reveals a right severe mixed hearing loss. She also has a moderate severe to severe left primarily sensorineural hearing loss. Assessment/Plan 1. Perforation of right tympanic membrane H72.91 Ordered: AMB Comp audiometry threshold & speech recog [id number], 12/25/2020 11:32:00 EDT, Perforation of right tympanic membrane / Mixed hearing loss of right ear / Sensorineural hearing loss of left ear, 1 AMB Office/Outpt New Pt Low MDM / 30-44 min [id number], 12/25/2020 11:32:00 EDT, Perforation of right tympanic membrane / Mixed hearing loss of right ear / Sensorineural hearing loss of left ear Sandie Liomn, 12/25/2020 11:32:00 EDT, Perforation of right tympanic membrane / Mixed hearing loss of right ear / Sensorineural hearing loss of left ear, 1 2. Mixed hearing loss of right ear H90.71 Ordered: AMB Comp audiometry threshold & speech recog [id number], 12/25/2020 11:32:00 EDT, Perforation of right tympanic membrane / Mixed hearing loss of right ear / Sensorineural hearing loss of left ear, 1 AMB Office/Outpt New Pt Low MDM / 30-44 min [id number], 12/25/2020 11:32:00 EDT, Perforation of right tympanic membrane / Mixed hearing loss of right ear / Sensorineural hearing loss of left ear Sandie Limon, 12/25/2020 11:32:00 EDT, Perforation of right tympanic membrane / Mixed hearing loss of right ear / Sensorineural hearing loss of left ear, 1 3. Sensorineural hearing loss of left ear H90.5 Ordered: AMB Comp audiometry threshold & speech recog [id number], 12/25/2020 11:32:00 EDT, Perforation of right tympanic membrane / Mixed hearing loss of right ear / Sensorineural hearing loss of left ear, 1 AMB Office/Outpt New Pt Low MDM / 30-44 min [id number], 12/25/2020 11:32:00 EDT, Perforation of right tympanic membrane / Mixed hearing loss of right ear / Sensorineural hearing loss of left ear Sandie Limon, 12/25/2020 11:32:00 EDT, Perforation of right tympanic membrane / Mixed hearing loss of right ear / Sensorineural hearing loss of left ear, 1 Problem List/Past Medical History Ongoing No chronic problems Historical No qualifying data Medications Januvia 50 mg oral tablet levocetirizine 5 mg oral tablet meloxicam 15 mg oral tablet pantoprazole 40 mg oral delayed release tablet spironolactone 100 mg oral tablet Symbicort 160 mcg-4.5 mcg/inh inhalation aerosol Allergies Demerol Social History Alcohol Current, 1-2 times per month, 12/25/2020 Tobacco Never (less than 100 in lifetime) Tobacco Use:., 12/25/2020 Family History Aneurysm....: Father. Bipolar: Mother. EP - Epilepsy: Mother. Heart disease: Father. Osteoporosis..: Mother. Schizophrenia..: Mother. Regarding the perforation at this point time I am not sure how much benefit she would actually get from its repair. As long as the ear is not draining it safe I think we can just leave it as is. If anything worsens or changes she will need to follow-up with Dr. Sheets. She will follow-up with audiology to see if her hearing aids are powerful enough for the type of loss that she has. If they are adequate there is probably not much more that we can do other th (more content not included)... Normal [facility] BONE DENSITY, DEXA 1 OR MORE SITES: AXIAL SKELETNon 08-22-2019 BONE DENSITY, DEXA 1 OR MORE SITES: AXIAL SKELETN ========= Bone Density Report ========= Height: 61.0 in Weight: 257.0 lb Fractures: Treatments: --------- Indication: Asymptomatic menopausal state Referring Provider: ANDREW FLORES Study: Bone densitometry was performed. Exam Date: August 22, 2019 Accession number: [id number] Findings: Standard measurements were obtained utilizing a Dual Energy X-ray Absorptiometry bone densitometer. Data obtained includes planar bone density measurements over the Left Femur and Lumbar Spine. Comparison of measured data and standardized mean data for a young adult population (when peak bone mass occurs) results in a T score. This represents the number of standard deviations above or below the mean of a young adult population. Comparison of measured data to standards from an age adjusted population similarly yields a Z score. Bone Density: --------- Region BMD T-score Z-score Classification --------- AP Spine(L1-L4) 1.125 0.7 1.9 Normal Femoral Neck (Left) 0.688 -1.5 -0.3 Osteopenia Total Hip (Left) 0.886 -0.5 0.3 Normal --------- World Health Organization criteria for BMD impression classify patients as: Normal (T-score at or above -1.0), Osteopenia (T-score between -1.0 and -2.5), or Osteoporosis (T-score at or below -2.5). 10-year Fracture Risk(1): --------- Major Osteoporotic Fracture 5.8% Hip Fracture 0.4% --------- Reported Risk Factors: [place] (), Neck BMD=0.688, BMI=48.6 (1) FRAX(R) Version 3.08. Fracture probability calculated for an untreated patient. Fracture probability may be lower if the patient has received treatment. Impression: The patient has osteopenia as determined by WHO criteria. Based on the results of the patient?s bone density assessment, the risk of future fracture increases approximately two fold for each 1.0 SD decrease in T-score. However, low BMD is not the only risk factor for a future fragility fracture. Other clinical risk factors for osteoporotic fracture should be considered in ascertaining this patient?s future fracture risk including the patient?s age, previous osteoporotic (fragility) fracture, estrogen deficiency/hypogonadal, risk of falling, use of medications implicated in bone loss (glucocorticoids), family history of osteoporotic fracture, diseases and conditions associated with bone loss, low body weight, smoking, high bone turnover, etc. Combining low BMD and other clinical risk factors result in a more precise assessment of future fracture risk. Secondary causes for osteoporosis, such as osteomalacia, other metabolic bone disorders, and diseases and conditions that may contribute to accelerated bone loss may have to be considered depending on the clinical situation. A repeat bone density assessment should be considered in two years. All images and detailed analysis are available on the Radiology PACS. Reported by: karie on 08/24/2019 8:35:00 AM. Electronically signed by: VU HAWK MD Normal [facility] Otheron 08-22-2019 Interpreted by: MAGGIE HAWK08/24/19 08:48 Bone Density Report ========= Height: 61.0 inWeight: 257.0 lbFractures:Treatments: --------- Indication: Asymptomatic menopausal state Referring Provider: ANDREW FLORES Study: Bone densitometry was performed. Exam Date: August 22, 2019 Accession number: [id number] Findings: Standard measurements were obtained utilizing a Dual Energy X-ray Absorptiometry bone densitometer. Data obtained includes planar bone density measurements over the Left Femur and Lumbar Spine. Comparison of measured data and standardized mean data for a young adult population (when peak bone mass occurs) results in a T score. This represents the number of standard deviations above or below the mean of a young adult population. Comparison of measured data to standards from an age adjusted population similarly yields a Z score. Bone Density: Region BMD T-score Z-score Classification AP Spine(L1-L4) 1.125 0.7 1.9 NormalFemoral Neck (Left) 0.688 -1.5 -0.3 OsteopeniaTotal Hip (Left) 0.886 -0.5 0.3 Normal World Health Organization criteria for BMD impression classify patients as: Normal (T-score at or above -1.0), Osteopenia (T-score between -1.0 and -2.5), or Osteoporosis (T-score at or below -2.5). 10-year Fracture Risk(1): Major Osteoporotic Fracture 5.8%Hip Fracture 0.4% Reported Risk Factors:[place] (), Neck BMD=0.688, BMI=48.6(1) FRAX(R) Version 3.08. Fracture probability calculated for an untreated patient. Fracture probability may be lower if the patient has received treatment. Impression: The patient has osteopenia as determined by WHO criteria. Based on the results of the patient?s bone density assessment, the risk of future fracture increases approximately two fold for each 1.0 SD decrease in T-score. However, low BMD is not the only risk factor for a future fragility fracture. Other clinical risk factors for osteoporotic fracture should be considered in ascertaining this patient?s future fracture risk including the patient?s age, previous osteoporotic (fragility) fracture, estrogen deficiency/hypogonadal, risk of falling, use of medications implicated in bone loss (glucocorticoids), family history of osteoporotic fracture, diseases and conditions associated with bone loss, low body weight, smoking, high bone turnover, etc. Combining low BMD and other clinical risk factors result in a more precise assessment of future fracture risk. Secondary causes for osteoporosis, such as osteomalacia, other metabolic bone disorders, and diseases and conditions that may contribute to accelerated bone loss may have to be considered depending on the clinical situation. A repeat bone density assessment should be considered in two years. All images and detailed analysis are available on the Radiology PACS. Reported by: -oscar on 08/24/2019 8:35:00 AM.Electronically signed by: VU HAWK 08/24/19 08:48 Normal -[facility] Work Phone: Comment on above: ORDER REVISED TO A B ONE DENSITY, DEXA 1 OR MORE SITES: AXIAL SKELETN BY RADIOLOGIST; Original Order Number: [id number] Mamm - Screening Mammogram w / Tomosynthesison 08-19-2019 MG Breast screening Interpreted by: DEV WYMAN08/19/19 14:42MRN: [id number] Name: YARA BETH STUDY:DIGITAL MAMM SCREENING W/ ROBERT; 08/19/2019 2:22 pm ORDERING CLINICIAN:ANDREW FLORES INDICATION:Screening. COMPARISON:07/29/2018, 07/23/2017, 07/15/2016 FINDINGS:2D and tomosynthesis images were reviewed at 1 mm slice thickness. There are areas of scattered fibroglandular tissue. There are stablecircumscribed similar appearing benign masses bilaterally. There arestable scattered benign calcifications of the left lateral breast. Nosuspicious masses or calcifications are identified. IMPRESSION:No mammographic evidence of malignancy. BI-RADS CATEGORY:Category: 2 - Benign.Recommendation: 1 Year Screening.Patient letter sent SNORMElectronically signed by: DEV WYMAN 08/19/19 14:42 Normal [facility] Work Phone: US ELASTOGRAPHY LIVER W/ABD LTDon 01-05-2019 US ELASTOGRAPHY LIVER W/ABD LTD ORIGINAL Limited ultrasound of the abdomen and hepatic elastography HISTORY: Fatty liver COMPARISON: None FINDINGS: Visible portions of the pancreas are normal. The gallbladder is surgically absent. No free fluid seen. Liver size is normal. There is fine nodularity at the surface of the liver, suggesting hepatocellular disease. Mild hepatic heterogeneity is present as well likely of similar etiology. No focal liver lesion is identified. No biliary dilatation seen. Common duct is normal in caliber. No additional contributory abnormality Elastography: Median velocity: 3.6 m/s (Values from 0.91 to 1.53 m/s typically indicate mild or no fibrosis, and values greater than 2.04 m/s are suggestive of cirrhosis.) IQR/median ratio: 0.12 (Value less than or equal to 0.3 should be seen to ensure exam adequacy.) IMPRESSION: Nodular surface liver contour and elevated elastography velocity suggesting cirrhosis. No focal lesion to suggest hepatocellular carcinoma. Reference: Journal of Ultrasound in Medicine July 23, 2013 vol. 33 no. 2 197-203. Interpreted By: Papa Franco MD Preliminary Report By: Papa Franco MD Electronically Signed By: Papa Franco MD Dictated Date: 01/05/2019 5:09:58 PM Prelim Date: 01/05/2019 5:09:58 PM Sign Date: 01/05/2019 5:15:01 PM Normal [facility] ([place] PROGRESSon 09-30-2018 Protein mass conc HNO ID: [id number] Author: Balbir Holbrook Service: ? Author Type: Physician Type: Progress Notes Filed: 10/17/2018 9:34 AM Note Text: Patient: Yara Beth Date: October 17, 2018 Chief Complaint:: Patient presents today with complaint of a painful left foot and ankle which was been present for several weeks. The symptoms are worse upon arising from sleep in the morning, standing for long periods, walking, sitting then returning to activity, and working on hard surfaces. Patient has experienced no recent trauma and has no significant increase in activity. The pain is worsening sine onset, but the treatment last visit did help some. Patient has been treating this condition with ice., NSAIDS, shoe modifications, immobilization and non-weight bearing. Examination: The patient is appropriately dressed, articulate, awake, alert, and oriented x 3, appears in appropriate shape for stated age and appears to be in good health. Dermatological: There is uniform swelling and pain to palpation of the affected area. Remainder of the dermatological foot exam: no varicosities telangiectasias, pigmented lesions, signs of venous stasis changes, trophic changes fungus, skin. Neurological: Achilles and Patellar reflexes are normal, brisk, and symmetrical bilateral. Epicritic sensation included sharp-dull, light touch, proprioception, 2-point discrimination (< 12 mm at level of hallux tuft), vibration (128 MHz tuning fork) and protective threshold (5.07 Porcupine Shaheen monofilament) are intact and without focal motor sensory deficit bilateral lower extremities. There are down going toes and a negative clonus bilateral. Normal muscle mass appreciated to both the lower extremity and foot bilateral. The patient can walk with ease with moderate pain at the area of interest. Musculoskeletal: Pain elicited on palpation of the Achilles tendon in the medial insertion into the calcaneous and lateral insertion into the calcaneous . Ankle joint ROM is limited and under neutral with the knee extended. Improves with knee flexed. The posterior heel has significant pain but has, Intact posterior tibial tendon, strength graded at 5/5. There are no other significant foot or ankle deformities bilaterally. Assessment: Achilles Tendonitis Plan: I discussed the pathology, it is likely cause, and options for treatment. I discussed conservative versus aggressive therapy. I will continue with conservative therapy and discussed the possibility of custom orthotics and possible organized physical therapy regiment. Patient was cautioned against high level activities, walking on even surfaces, and was instructed to do stretching before arising suddenly or getting out of bed. At home physical therapy discussed. Symptomatic use of an ice pack after activity for 10-15 minutes will help with the swelling and discomfort. Rx options were discussed including anti-inflammatories and possible steroids, patient was cautioned regarding GI upset, ulcer and other risks. Oral and written instructions given regarding compliance. RTC in 1 week if conservative treatment fails, for additional injection and probable custom orthotics. ASSESSMENT/PLAN: 1. Tibialis tendinitis of left lower extremity - ICD9: 726.72, ICD10: M76.822 2. Tarsal tunnel syndrome of left side - ICD9: 355.5, ICD10: G57.52 3. Acute left ankle pain - ICD9: 719.47, ICD10: M25.572 Balbir Holbrook DPM Normal [facility] PROGRESSon 09-23-2018 Protein mass conc HNO ID: [id number] Author: Balbir Holbrook Service: ? Author Type: Physician Type: Progress Notes Filed: 10/01/2018 9:34 AM Note Text: Patient: Yara Beth Date: October 01, 2018 Chief Complaint:: Patient presents today with complaint of a painful bilateral foot and ankle which was been present for several weeks. The symptoms are worse upon arising from sleep in the morning, standing for long periods, walking, sitting then returning to activity, and working on hard surfaces. Patient has experienced no recent trauma and has no significant increase in activity. The pain is worsening sine onset, but the treatment last visit did help some. Patient has been treating this condition with ice., NSAIDS, shoe modifications, immobilization and non-weight bearing. Examination: The patient is appropriately dressed, articulate, awake, alert, and oriented x 3, appears in appropriate shape for stated age and appears to be in good health. Dermatological: There is ecchymosis of the affected area. Remainder of the dermatological foot exam: no varicosities telangiectasias, pigmented lesions, signs of venous stasis changes, trophic changes fungus, skin. Neurological: Achilles and Patellar reflexes are normal, brisk, and symmetrical bilateral. Epicritic sensation included sharp-dull, light touch, proprioception, 2-point discrimination (< 12 mm at level of hallux tuft), vibration (128 MHz tuning fork) and protective threshold (5.07 Porcupine Shaheen monofilament) are intact and without focal motor sensory deficit bilateral lower extremities. There are down going toes and a negative clonus bilateral. Normal muscle mass appreciated to both the lower extremity and foot bilateral. The patient can walk with ease with moderate pain at the area of interest. Musculoskeletal: Pain elicited on palpation of the Achilles tendon in the medial insertion into the calcaneous and lateral insertion into the calcaneous . Ankle joint ROM is limited and under neutral with the knee extended. Improves with knee flexed. The posterior heel has significant pain but has, Intact posterior tibial tendon, strength graded at 5/5. There are no other significant foot or ankle deformities bilaterally. Assessment: Achilles Tendonitis Plan: I discussed the pathology, it is likely cause, and options for treatment. I discussed conservative versus aggressive therapy. I will continue with conservative therapy and discussed the possibility of custom orthotics and possible organized physical therapy regiment. Patient was cautioned against high level activities, walking on even surfaces, and was instructed to do stretching before arising suddenly or getting out of bed. At home physical therapy discussed. Symptomatic use of an ice pack after activity for 10-15 minutes will help with the swelling and discomfort. Rx options were discussed including anti-inflammatories and possible steroids, patient was cautioned regarding GI upset, ulcer and other risks. Oral and written instructions given regarding compliance. RTC in 1 week if conservative treatment fails, for additional injection and probable custom orthotics. ASSESSMENT/PLAN: 1. Pain in joint involving ankle and foot, unspecified laterality - ICD9: 719.47, ICD10: M25.579 2. Tibialis tendinitis of both lower extremities - ICD9: 726.72, ICD10: M76.821, M76.822 3. Tarsal tunnel syndrome of both lower extremities - ICD9: 355.5, ICD10: G57.53 4. Acute bilateral ankle pain - ICD9: 719.47, 338.19, ICD10: M25.571, M25.572 Balbir Holbrook DPM Normal [facility] PROGRESSon 08-16-2018 Protein mass conc HNO ID: [id number] Author: Balbir Holbrook Service: (none) Author Type: Physician Type: Progress Notes Filed: 08/16/2018 9:58 AM Note Text: Patient: Yara Beth Date: August 16, 2018 Custom orthotics were dispensed to the patient today. Due to the diagnosis indicated and related symptoms, this is medically necessary for treatment. The goals and function of this device were explained in detail to the patient. Upon visual gait analysis, the devices appeared to be fitting well and the patient stated that the devices were comfortable at this time. Home care instructions as well as proper use, shoe fitting, and care were explained in detail. No guarantees were given and precautions were reviewed. Patient was given information on condition resolving and what to expect over the next 4-6 weeks. Patient was advised to break- in the devices slowly over the course of the next 2 weeks starting slowly first day and increasing daily according to tolerance and comfort levels. Patient was instructed to call the office if noticing any signs of irritation including redness, blistering or callus formation. Patient was reappointed in 2 weeks for follow-up evaluation of not only her orthotics but also the condition for which she is currently being treated. Ht 5' 1 (1.55m) Wt 240 lb (108.9kg) BMI 45.37 kg/(m2). No past medical history on file. No past surgical history on file. History reviewed. No pertinent family history. Social History Main Topics Smoking status: Never Smoker Smokeless tobacco: Never Used No current outpatient prescriptions on file. No current facility-administered medications for this visit. Assessment: PTTD, achilles tendonitis, tarsal coalition Plan: Please keep your orthotics in the shoes they were placed in for 72 hours to get use to them. Understand that each orthotic is custom made to each foot, therefore each foot may feel different. Please write down any concerns or problems you are having, this greatly helps our staff correct issues. When moving orthotics from shoe to shoe please make sure that they are roughly the same size as the shoes the devices were cut for, please take special care with cowboy boots, dress shoes, and clogs. If you find there are shoes the new devices do not fit into certain shoes please bring the shoes with you to your follow up appointment, we can modify the devices or provide a slimmer graphite plate for smaller shoes for a nominal fee. ASSESSMENT/PLAN: 1. Tibialis tendinitis of both lower extremities - ICD9: 726.72, ICD10: M76.821, M76.822 2. Pain in both feet - ICD9: 729.5, ICD10: M79.671, M79.672 3. Coalition, tarsal - ICD9: 755.67, ICD10: Q66.89 Balbir Holbrook DPM [facility] PROGRESSon 08-06-2018 Protein mass conc HNO ID: [id number] Author: Balbir Holbrook Service: (none) Author Type: Physician Type: Progress Notes Filed: 08/06/2018 8:52 AM Note Text: Patient: Yara Beth Date: August 06, 2018 Subjective: Yara Beth 57 year old year-old female returns for follow-up evaluation for symptomatic plantar fasciitis. The patient claims 75% improvement from the initial visit. Objective: The patient is intact from a neurovascular standpoint with no change since their last visitation bilateral lower extremity. Musculoskeletal: There is moderate tenderness on palpation of the plantarmedial calcaneal tubercle in the region of the origin of the plantar fascia and intrinsic musculature, and no pain on medial-lateral compression of the calcaneus. Ht 5' 1 (1.55m) Wt 240 lb (108.9kg) BMI 45.37 kg/(m2). No past medical history on file. No past surgical history on file. History reviewed. No pertinent family history. Social History Main Topics Smoking status: Never Smoker Smokeless tobacco: Never Used No current outpatient prescriptions on file. No current facility-administered medications for this visit. Assessment: Plantar Fasciitis Plan: I have recommended continued use of current treatment and at-home instructions for the next month time at which point this condition should fully subside. I explained the symptoms may return in the future at which time the patient will use the stretching exercises and the insoles to prevent progression. I will see them back on a PRN basis and have cautioned them to return for a follow -up visit should problems arise or become exacerbated. All questions answered. ASSESSMENT/PLAN: 1. Fasciitis - ICD9: 729.4, ICD10: M72.9 2. Tibialis tendinitis of right lower extremity - ICD9: 726.72, ICD10: M76.821 3. Tarsal tunnel syndrome of right side - ICD9: 355.5, ICD10: G57.51 4. Right foot pain - ICD9: 729.5, ICD10: M79.671 Balbir Holbrook DPM [facility] PROGRESSon 06-30-2018 Protein mass conc HNO ID: [id number] Author: Balbir Holbrook Service: (none) Author Type: Physician Type: Progress Notes Filed: 07/02/2018 10:06 AM Note Text: Patient: Yara Gonzáles Date: June 30, 2018 Subjective: Yara Gonzáles 57 year old year-old female who presents to the office with a chief complaint of pain in the left heel. Patient stated that this has been present for a while and is becoming progressively more severe. The pain is increased with ambulation and weight bearing and does feel better with rest. Patient indicates the pain is most severe after playing sports and running. Objective: Patient is well developed, alert and oriented x 3 with good attention to grooming and body habitus. Vascular: Dorsalis pedis pulses and posteriortibial pulses are present and strong, capillary filing time with the leg elevated is <5 seconds B/L. There is no edema noted lower extremity except around area of discomfort. Neurological: All grossly intact with no numbness or lack of burning sensations. Normal muscle mass appreciated to both the lower extremity and foot and there is pain at the insertion of the Achilles tendon on the effected side. Dermatological: Color, texture, and turgor are within normal limits, bilateral lower extremity, and there are no open lesions. Pedal and digital hair are present. Musculoskeletal: One notes a planus foot type with moderate gastroc-soleus equinus deformity. One notes moderate evidence of limb length. Physical exam reveals pain with palpation to the posterior plantar aspect of the effected heel at both the insertion of the Achilles tendon and the posterior calcaneus. There are flexible digital contractures noted. Muscle strength is WNL for all four lower extremity groups on the non-effected foot, with mild guarding on the effected foot. Radiological Examination: X-rays 3 views weight bearing AP, MO and Lateral taken and reviewed of the lower extremity. X-rays show good bone density, clarity of all joint spaces. One notes that there is no evidence of any fractures, subluxations or dislocations noted. The calcaneal growth plates are closed properly and intact. Ht 5' 1 (1.55m) Wt 240 lb (108.9kg) BMI 45.37 kg/(m2). No past medical history on file. No past surgical history on file. History reviewed. No pertinent family history. Social History Main Topics Smoking status: Never Smoker Smokeless tobacco: Never Used No current outpatient prescriptions on file. No current facility-administered medications for this visit. Lengthy discussion with patient about medical condition, prognosis and treatment plan. The abnormal biomechanics of feet were discussed as it relates to the conditions and symptoms. Patient was advised that the condition may take years to completely resolve and is related to age and development, and also that the condition may relapse and remit overtime. I advised custom-made functional orthotic devices to control the biomechanical abnormalities and reduce the stress and strain at the insertion of the plantar fascia and Achilles tendon into the calcaneus. Patient was instructed to be careful with weight bearing. Home physical therapy exercises were given, both oral and written. I advised a proper warm-up and stretching prior to playing sports and doing other athletic activities. I recommended applying ice to the area especially after playing sports and activity. Proper shoe gear was reviewed. Discussed the use of OTC Tylenol and Ibuprofen and recommended occasional use for pain reduction. I advised caution due to potential side effects and recommended immediate discontinuation if side effects arise. Patient to return to clinic in 2 weeks.. ASSESSMENT/PLAN: 1. Posterior tibial tendon dysfunction (PTTD) of left lower extremity - ICD9: 734, ICD10: M76.822 Balbir Holbrook DPM [facility] Vital Signs Date Time Vital Sign Value Performing Clinician Facility 10-03-2024 18:07-0400 Body mass index (BMI) [Ratio] 46.75 kg/m2 Diane GONZALEZ Work Phone: [facility] 10-03-2024 18:07-0400 Body weight 112.22 kg Diane Lopez APRNOptima DiagnosticsSECRETARY TO THE VICE PRESIDENT Work Phone: [facility] 10-03-2024 18:07-0400 Diastolic blood pressure 70 mm[Hg] Diane Lopez APRNOptima DiagnosticsSECRETARY TO THE VICE PRESIDENT Work Phone: [facility] 10-03-2024 18:07-0400 Heart rate 96 /min Diane Lopez APRNQuest [employer] Work Phone: [facility] 10-03-2024 18:07-0400 SaO2% (BldA) [Mass fraction] 100 % Diane Lopez ASSISTANT PROJECT ENGINEER-SECRETARY TO THE VICE PRESIDENT Work Phone: [facility] 10-03-2024 18:07-0400 Systolic blood pressure 132 mm[Hg] Diane Lopez ASSISTANT PROJECT ENGINEER-SECRETARY TO THE VICE PRESIDENT Work Phone: [facility] 03-10-2024 11:34-0400 Body height 154.94 cm Preet Ch PA-C [facility] 03-10-2024 11:34-0400 Body mass index (BMI) [Ratio] 44.96 kg/m2 Preet Ch PA-C [facility] 03-10-2024 11:34-0400 Body weight 107.96 kg Preet Ch PA-C [facility] 09-29-2023 10:36-0400 Body height 154.94 cm Yobani Juarez DO [facility] 09-29-2023 10:36-0400 Body mass index (BMI) [Ratio] 44.96 kg/m2 Yobani Juarez DO [facility] 09-29-2023 10:36-0400 Body weight 107.96 kg Yobani Juarez DO [facility] 03-20-2022 11:19-0400 Diastolic blood pressure 67 mm[Hg] Darryl Nam Work Phone: XJ-Cjgneiwabgtb-Zvsuv in [address] Work Phone: 03-20-2022 11:19-0400 Heart rate 87 /min Darryl Nam Work Phone: KK-Veorjnppdoua-Zxovk in [address] Work Phone: 03-20-2022 11:19-0400 Systolic blood pressure 102 mm[Hg] Darryl Nam Work Phone: ZT-Dohghdngvzsm-Zbnwp in [address] Work Phone: 03-20-2022 11:17-0400 Body temperature 97.3 [degF] Darryl Nam Work Phone: RK-Kdkseqvaxnsz-Ckita in [address] Work Phone: 03-20-2022 11:10-0400 Body height 154.94 cm Darryl Remi Nam Work Phone: WO-Yjhcqchmdbhf-Okxcc in [address] Work Phone: 03-20-2022 11:10-0400 Body mass index (BMI) [Ratio] 47.43 kg/m2 Darryl Khalil Killian Work Phone: MB-Bubknufssmwd-Aylxt in [address] Work Phone: 03-20-2022 11:10-0400 Body surface area Derived from formula 2.08 m2 Darryl Khalil Killian Work Phone: EQ-Irtnqgldjjdt-Nzwvp in [address] Work Phone: 03-20-2022 11:10-0400 Body weight 113.85 kg Darryl Khalil Killian Work Phone: SM-Yhohusrsosia-Clsip in [address] Work Phone: 01-09-2022 10:23-0400 Body height 154.94 cm Darryl Khalil Killian Work Phone: PZ-Zmrcpwflyhrr-Ngett in [address] Work Phone: 01-09-2022 10:23-0400 Body mass index (BMI) [Ratio] 47.05 kg/m2 Darryl Khalil Nam Work Phone: HQ-Gniwymkkbaru-Vfilu in [address] Work Phone: 01-09-2022 10:23-0400 Body surface area Derived from formula 2.07 m2 Darryl Khalil Killian Work Phone: GK-Bgmkgpiwpdpx-Qcubp in [address] Work Phone: 01-09-2022 10:23-0400 Body temperature 97.2 [degF] Darryl Khalil Nam Work Phone: XS-Yekhsalumkzb-Edged in [address] Work Phone: 01-09-2022 10:23-0400 Body weight 112.95 kg Darryl Remi Nam Work Phone: PQ-Rzpbrmijvchc-Karbc in [address] Work Phone: 01-09-2022 10:23-0400 Diastolic blood pressure 69 mm[Hg] Darryl Khalil Nam Work Phone: KK-Rtjdczsebotq-Ocabz in [address] Work Phone: 01-09-2022 10:23-0400 Heart rate 91 /min Darryl Khalil Nam Work Phone: MV-Gezhbinrireg-Vhrje in [address] Work Phone: 01-09-2022 10:23-0400 Respiratory rate 18 /min Darryl Khalil Nam Work Phone: RW-Cqcxsnzqeiya-Uwqqq in [address] Work Phone: 01-09-2022 10:23-0400 Systolic blood pressure 102 mm[Hg] Darryl Remi Nam Work Phone: SR-Ttjxpgmoxxmj-Fyofz in [address] Work Phone: 01-09-2022 10:23-0400 0 1 Darryl Remi Nam Work Phone: QB-Fxywbtqefvgm-Zmbtm in [address] Work Phone: Comment on above: [employer] 09-23-2021 10:45-0400 Body height 154.94 cm Darryl Nam [facility]: [facility] Work Phone: 09-23-2021 10:45-0400 Body mass index (BMI) [Ratio] 47.8 kg/m2 Darryl Nam [facility] Work Phone: 09-23-2021 10:45-0400 Body surface area Derived from formula 2.09 m2 Darryl Khalil [employer] Work Phone: [facility] Work Phone: 09-23-2021 10:45-0400 Body weight 114.76 kg Darryl Khalil [employer] Work Phone: [facility] Work Phone: 09-23-2021 10:45-0400 Diastolic blood pressure 80 mm[Hg] Darryl Khalil [employer] Work Phone: [facility] Work Phone: 09-23-2021 10:45-0400 Systolic blood pressure 130 mm[Hg] Darryl Khalil [employer] Work Phone: [facility] Work Phone: 09-23-2021 10:45-0400 0 1 Darryl Khalil [employer] Work Phone: [facility] Work Phone: Comment on above: GRAV PARA 08-12-2019 15:50-0500 BMI (Body Mass Index) 48.94 kg/m2 Nadeem Lopez [facility] Work Phone: 08-12-2019 15:50-0500 Body weight 117.48 kg Nadeem Lopez [facility] Work Phone: 08-12-2019 15:50-0500 BP Diastolic 62 mm[Hg] Nadeem Lopez [facility] Work Phone: 08-12-2019 15:50-0500 BP Systolic 120 mm[Hg] Nadeem Lopez [facility] Work Phone: 08-12-2019 15:50-0500 BSA (Body Surface Area) 2.11 m2 Nadeem Lopez [facility] Work Phone: 08-12-2019 15:50-0500 Height 154.94 cm Nadeem Lopez -[facility] Work Phone: 08-12-2019 15:50-0500 0 1 Nadeem Lopez -[facility] Work Phone: Comment on above: Para Encounters Encounter Date Encounter Type Care Provider Facility Start: 12-16-[address] Darryl Nam MD [facility] Work Phone: Start: 12-12-2024 End: 12-12-[address] Darryl Nam MD -Laboratory [facility] Start: 12-12-2024 End: 12-12-2024 ambulatory Darryl Orbisonia Facility:[facility] Start: 10-03-2024 End: 10-03-2024 Office outpatient new 30 minutes Diane Lopez ASSISTANT PROJECT ENGINEER-SECRETARY TO THE VICE PRESIDENT Work Phone: [facility] Comment on above: Non-recurrent acute serous otitis media of both ears (Primary Dx) Start: 09-16-2024 ambulatory [facility] Start: 09-08-2024 ambulatory Yobani Juarez [facility] Start: 09-06-2024 ambulatory Yobani Juarez [facility] Start: 08-09-2024 ambulatory ITA KING Fac ility:[id number] Start: 08-09-2024 End: 08-09-2024 Subsequent hospital visit by physician [facility] Work Phone: Radiology CT Scan Comment on above: Other microscopic he maturia [R31.29] Start: 07-18-2024 End: 07-18-2024 ambulatory [facility] Facility:[facility] Start: 06-08-2024 End: 06-08-2024 [facility] Facility:[facility] Start: 05-13-2024 End: 05-13-2024 ambulatory [facility] Facility:[facility] Start: 04-21-2024 End: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 Grandfather(V17.6, Z82.5) Status:Active Blood clot in vein: Father Status:Active Family history of osteoporos is: Mother, Maternal Grandmother(V17.81, Z82.62) Status:Active Family history of myocardial infarction: Father(V17.3, Z82.49) Status:Active H/O heart bypass surgery: Fa ther(V45.81, Z95.1) Status:Active Unknown Family Member Name Dates Details Family history of myocardial infarction: Father(V17.3, Z82.49) Status:Active H/O heart bypass surgery: Fa ther(V45.81, Z95.1) Status:Active Family history of osteoporos is: Mother, Maternal Grandmother(V17.81, Z82.62) Status:Active Blood clot in vein: Father Status:Active Family history of emphysema: Grandfather(V17.6, Z82.5) Status:Active Diabetes Mellitus: Maternal Grandmother(V18.0) Status:Active Obstructive Sleep Apnea: Fat her Status:Active Aneurysm Of Abdominal Aorta: Father Status:Active Chronic Obstructive Pulmonar y Disease: Father Status:Active Hypertension: Father(V17.49) Status:Active Epilepsy: Mother Status:Active Relationship Condition Age at Onset Recorded Date/T pato father Chronic obstructive pulmonary disease Unk nown Anemia Unknown Depression Unknown Cardiac disease Unknown Malignant neoplasm of skin Unknown mother Cardiac disease Unknown Hypertension Unknown Hypocalcemia Unknown Seizure Unknown Mental disorder Unknown Epilepsy Unknown Osteoporosis Unknown Unknown Family Member Name Dates Details Epilepsy: Mother Status:Active Hypertension: Father(V17.49) Status:Active Chronic Obstructive Pulmonar y Disease: Father Status:Active Aneurysm Of Abdominal Aorta: Father Status:Active Obstructive Sleep Apnea: Fat her Status:Active Diabetes Mellitus: Maternal Grandmother(V18.0) Status:Active Family history of emphysema: Grandfather(V17.6, Z82.5) Status:Active Blood clot in vein: Father Status:Active Family history of osteoporos is: Mother, Maternal Grandmother(V17.81, Z82.62) Status:Active Family history of myocardial infarction: Father(V17.3, Z82.49) Status:Active H/O heart bypass surgery: Fa ther(V45.81, Z95.1) Status:Active Unknown Family Member Name Dates Details Epilepsy: Mother Status:Active Hypertension: Father(V17.49) Status:Active Chronic Obstructive Pulmonar y Disease: Father Status:Active Aneurysm Of Abdominal Aorta: Father Status:Active Obstructive Sleep Apnea: Fat her Status:Active Diabetes Mellitus: Maternal Grandmother(V18.0) Status:Active Blood clot in vein: Father Status:Active Family history of osteoporos is: Mother, Maternal Grandmother(V17.81, Z82.62) Status:Active Family history of myocardial infarction: Father(V17.3, Z82.49) Status:Active H/O heart bypass surgery: Fa ther(V45.81, Z95.1) Status:Active Family history of emphysema: Grandfather(V17.6, Z82.5) Status:Active Unknown Family Member Name Dates Details Epilepsy: Mother Status:Active Hypertension: Father(V17.49) Status:Active Chronic Obstructive Pulmonar y Disease: Father Status:Active Aneurysm Of Abdominal Aorta: Father Status:Active Obstructive Sleep Apnea: Fat her Status:Active Diabetes Mellitus: Maternal Grandmother(V18.0) Status:Active Family history of emphysema: Grandfather(V17.6, Z82.5) Status:Active Blood clot in vein: Father Status:Active Family history of osteoporos is: Mother, Maternal Grandmother(V17.81, Z82.62) Status:Active Family history of myocardial infarction: Father(V17.3, Z82.49) Status:Active H/O heart bypass surgery: Fa ther(V45.81, Z95.1) Status:Active Unknown Family Member Name Dates Details Epilepsy: Mother Status:Active Hypertension: Father(V17.49) Status:Active Chronic Obstructive Pulmonar y Disease: Father Status:Active Aneurysm Of Abdominal Aorta: Father Status:Active Obstructive Sleep Apnea: Fat her Status:Active Diabetes Mellitus: Maternal Grandmother(V18.0) Status:Active Family history of emphysema: Grandfather(V17.6, Z82.5) Status:Active Blood clot in vein: Father Status:Active Family history of osteoporos is: Mother, Maternal Grandmother(V17.81, Z82.62) Status:Active Family history of myocardial infarction: Father(V17.3, Z82.49) Status:Active H/O heart bypass surgery: Fa ther(V45.81, Z95.1) Status:Active Unknown Family Member Name Dates Details Epilepsy: Mother Status:Active Hypertension: Father(V17.49) Status:Active Chronic Obstructive Pulmonar y Disease: Father Status:Active Aneurysm Of Abdominal Aorta: Father Status:Active Obstructive Sleep Apnea: Fat her Status:Active Diabetes Mellitus: Maternal Grandmother(V18.0) Status:Active Family history of emphysema: Grandfather(V17.6, Z82.5) Status:Active Blood clot in vein: Father Status:Active Family history of osteoporos is: Mother, Maternal Grandmother(V17.81, Z82.62) Status:Active Family history of myocardial infarction: Father(V17.3, Z82.49) Status:Active H/O heart bypass surgery: Fa ther(V45.81, Z95.1) Status:Active Unknown Family Member Name Dates Details Epilepsy: Mother Status:Active Hypertension: Father(V17.49) Status:Active Chronic Obstructive Pulmonar y Disease: Father Status:Active Aneurysm Of Abdominal Aorta: Father Status:Active Obstructive Sleep Apnea: Fat her Status:Active Diabetes Mellitus: Maternal Grandmother(V18.0) Status:Active Family history of emphysema: Grandfather(V17.6, Z82.5) Status:Active Blood clot in vein: Father Status:Active Family history of osteoporos is: Mother, Maternal Grandmother(V17.81, Z82.62) Status:Active Family history of myocardial infarction: Father(V17.3, Z82.49) Status:Active H/O heart bypass surgery: Fa ther(V45.81, Z95.1) Status:Active Unknown Family Member Name Dates Details Epilepsy: Mother Status:Active Hypertension: Father(V17.49) Status:Active Chronic Obstructive Pulmonar y Disease: Father Status:Active Aneurysm Of Abdominal Aorta: Father Status:Active Obstructive Sleep Apnea: Fat her Status:Active Diabetes Mellitus: Maternal Grandmother(V18.0) Status:Active Family history of emphysema: Grandfather(V17.6, Z82.5) Status:Active Blood clot in vein: Father Status:Active Family history of osteoporos is: Mother, Maternal Grandmother(V17.81, Z82.62) Status:Active Family history of myocardial infarction: Father(V17.3, Z82.49) Status:Active H/O heart bypass surgery: Fa ther(V45.81, Z95.1) Status:Active Unknown Family Member Name Dates Details Epilepsy: Mother Status:Active Hypertension: Father(V17.49) Status:Active Chronic Obstructive Pulmonar y Disease: Father Status:Active Aneurysm Of Abdominal Aorta: Father Status:Active Obstructive Sleep Apnea: Fat her Status:Active Diabetes Mellitus: Maternal Grandmother(V18.0) Status:Active Family history of emphysema: Grandfather(V17.6, Z82.5) Status:Active Family history of myocardial infarction: Father(V17.3, Z82.49) Status:Active H/O heart bypass surgery: Fa ther(V45.81, Z95.1) Status:Active Family history of osteoporos is: Mother, Maternal Grandmother(V17.81, Z82.62) Status:Active Blood clot in vein: Father Status:Active Unknown Family Member Name Dates Details Epilepsy: Mother Status:Active Hypertension: Father(V17.49) Status:Active Chronic Obstructive Pulmonar y Disease: Father Status:Active Aneurysm Of Abdominal Aorta: Father Status:Active Obstructive Sleep Apnea: Fat her Status:Active Diabetes Mellitus: Maternal Grandmother(V18.0) Status:Active Blood clot in vein: Father Status:Active Family history of osteoporos is: Mother, Maternal Grandmother(V17.81, Z82.62) Status:Active Family history of myocardial infarction: Father(V17.3, Z82.49) Status:Active H/O heart bypass surgery: Fa ther(V45.81, Z95.1) Status:Active Family history of emphysema: Grandfather(V17.6, Z82.5) Status:Active Unknown Family Member Name Dates Details Epilepsy: Mother Status:Active Hypertension: Father(V17.49) Status:Active Chronic Obstructive Pulmonar y Disease: Father Status:Active Aneurysm Of Abdominal Aorta: Father Status:Active Obstructive Sleep Apnea: Fat her Status:Active Diabetes Mellitus: Maternal Grandmother(V18.0) Status:Active Family history of emphysema: Grandfather(V17.6, Z82.5) Status:Active Blood clot in vein: Father Status:Active Family history of osteoporos is: Mother, Maternal Grandmother(V17.81, Z82.62) Status:Active Family history of myocardial infarction: Father(V17.3, Z82.49) Status:Active H/O heart bypass surgery: Fa ther(V45.81, Z95.1) Status:Active Family Member Type Diagnosis Age At Onset No Information Advance Directives Advance Directive Response Recorded Date/ Time Living Will No February 05 12:29pm Power of Bosom Presser No February 05 021 12:29pm Advance Directive Response Recorded Date/ Time Living Will No February 05 11:29am Power of Bosom Presser No February 05 021 11:29am Directive Yes / No Effective Date File Name No Information Chief Complaint New patient visitNew patient visit - cirrhosisFollow up appointment.Follow up appointment.Follow up appointment. Chief Complaint and Reason for Visit Chief Complaint Admit Date EORDER December 16, 2024 10:1 5am Additional Source Comments INFORMATION SOURCE (unrecogn ized section and content) DATE CREATED AUTHOR 10/20/2018 [facility] DATE CREATED AUTHOR AUTHOR'S ORGANIZ ATION 02/14/2019 [facility] ([place] DATE CREATED AUTHOR AUTHOR'S ORGANIZ ATION 08/26/2019 [facility] DATE CREATED AUTHOR AUTHOR'S ORGANIZ ATION 07/03/2021 [facility] DATE CREATED AUTHOR AUTHOR'S ORGANIZ ATION 08/12/2021 [facility] [place] DATE CREATED AUTHOR AUTHOR'S ORGANIZ ATION 01/24/2022 [employer] DATE CREATED AUTHOR AUTHOR'S ORGANIZ ATION 01/22/2023 [facility] DATE CREATED AUTHOR AUTHOR'S ORGANIZ ATION 12/23/2023 [facility] DATE CREATED AUTHOR AUTHOR'S ORGANIZ ATION 03/12/2024 [facility] DATE CREATED AUTHOR AUTHOR'S ORGANIZ ATION 08/11/2024 [facility] DATE CREATED AUTHOR AUTHOR'S ORGANIZ ATION 09/08/2024 [facility] DATE CREATED AUTHOR AUTHOR'S ORGANIZ ATION 09/17/2024 [facility] DATE CREATED AUTHOR AUTHOR'S ORGANIZ ATION 10/05/20[facility] DATE CREATED AUTHOR AUTHOR'S ORGANIZ ATION 12/15/2024 [facility] Goals (unrecognized section and content) Goals may be documented in a n alternate section Health Concern Goal Type Priority Status No Information Care Teams (unrecognized sec tion and content) Team Status: Active Member Role Status Dates Dr. Darryl Nam MD Family Provider Active Dr. Darryl Nam MD Primary Care Provider Active Team Status: Inactive Member Role Status Dates Dr. Darryl Nam MD Primary Care Provider Active Nicole Granados CEREAL MAKER, CEREAL MAKER-C Attending Provider Active Dog Breeder Relationship Specialty Start Date End Date Darryl Nam MD [address] [place], [place] [id number] PCP - General Family Medicine 03/20/17 Team Status: Inactive Member Role Status Dates Dr. Darryl Nam MD Primary Care Provider, Attending Isha kapadia Active Name Effective Dates (start - stop) Status Members No Information Dog Breeder Relationship Specialty Start Date End Date Darryl Nam MD [address] [place] [address] PCP - General Family Medicine 03/20/17 Dog Breeder Relationship Specialty Start Date End Date Darryl Nam MD [address] [place] [address] PCP - General Family Medicine 03/20/17 Dog Breeder Relationship Specialty Start Date End Date Darryl Nam MD [address] [place] [address] PCP - General Family Medicine 03/20/17 Dog Breeder Relationship Specialty Start Date End Date Darryl Nam MD [address] [facility] [address] [place], [place] [address] PCP - General 07/29/18 Team Status: Active Member Role/Relationship Status Dates Dr. Darryl Nam MD Family Provider Active Dr. Darryl Nam MD Primary Care Provider Active Team Status: Inactive Member Role/Relationship Status Dates Dr. Darryl Nam MD Primary Care Provider Active Start: December 12, 2024 End: December 12, 2024 Dr. Darryl Nam MD Attending Provider Active St art: December 12, 2024 End: December 12, 2024 Team Status: Active Member Role/Relationship Status Dates Dr. Darryl Nam MD Primary Care Provider Active Start: December 16, 2024 Dr. Darryl Nam MD Attending Provider Active St art: December 16, 2024 Dr. Darryl Nam MD Referring Provider Active St art: December 16, 2024 Source Comments (unrecognize d section and content) In the event this informatio n is protected by the Federal Confidentiality of Alcohol and Drug Abuse Patient Records regulations: The Federal rules restrict any use of the information to criminally investigate or prosecute any alcohol or drug abuse patient.[facility] the event this information is protected by the Federal Confidentiality of Alcohol and Drug Abuse Patient Records regulations: The Federal rules restrict any use of the information to criminally investigate or prosecute any alcohol or drug abuse patient.[facility] the event this information is protected by the Federal Confidentiality of Alcohol and Drug Abuse Patient Records regulations: The Federal rules restrict any use of the information to criminally investigate or prosecute any alcohol or drug abuse patient.[facility] the event this information is protected by the Federal Confidentiality of Alcohol and Drug Abuse Patient Records regulations: The Federal rules restrict any use of the information to criminally investigate or prosecute any alcohol or drug abuse patient.[facility] Reason for Visit (unrecogniz ed section and content) Reason Comments Earache X3days, left & right FOR RECORDS PERTAINING TO PATIENTS WHO ARE OR HAVE BEEN ENROLLED IN A CHEMICAL DEPENDENCY/SUBSTANCEABUSE PROGRAM, SOME INFORMATION MAY BE OMITTED. This clinical summary was aggregated from multiple sources. Caution should be exercised in using it in the provision of clinical care. This summary normalizes information from multiple sources, and as a consequence, information in this document may materially change the coding, format and clinical context of patient data. In addition, data may be omitted in some cases. CLINICAL DECISIONS SHOULD BE BASED ON THE PRIMARY CLINICAL RECORDS. [email or web address] provides no warranty or guarantee of the accuracy or completeness of information in this document.
== END | disposition home or self-care (01) ==
LOC: MTLAB 10:16
PROVIDERS: PCP Family Medicine; Referring Provider Family Medicine; Visit Provider Family Medicine
DX: D69.6 Thrombocytopenia, unspecified (principal)
CPT/HCPCS: 36415; 85025

== ENCOUNTER → 2025-01-06 | Outpatient (CLI) | payer BC, SELFPAY ==
[2025-01-06 17:04] LABS: Prothrombin Time (Protime)PT. 15.1 SECONDS (11.7-14.9)
[2025-01-06 17:36] LABS: AST(SGOT) 37 U/L (<=31); Alanine Aminotransfer ALT/SGPT 19 U/L (<=34); Albumin, Serum 3.2 g/dL (3.4-4.8); Alkaline Phosphatase 127 U/L (35-104); Anion Gap 11 (5-15); BUN 13 mg/dL (4-19); BUN/Creat Ratio 10.6 RATIO (10-20); Bilirubin, Direct 0.74 mg/dL (0.00-0.30); Calcium,Total 9.1 mg/dL (7.6-11.0); Carbon Dioxide 22.4 mmol/L (21.0-32.0); Chloride 107 mmol/L (98-108); Ferritin 51 ng/mL (22-378); Globulin 2.4 g/dL (2.2-4.2); Glucose 264 mg/dL (70-99); Hepatitis B Surface Antigen Nonreactive (Nonreactive); Hepatitis C Antibody Nonreactive (Nonreactive); Iron 115 ug/dL (50-170); Iron Binding Capacity,Total 255 ug/dL (250-450); Iron Binding Capacity,Unsat 140 ug/dL (228-428); Potassium 3.8 mmol/L (3.3-5.1)
--- OUTSIDE RECORDS SUMMARY | 2025-01-06 18:14 | XMS RPT_ITS | CCD ---
Author Organization [facility]ini[facility] Care Team Providers Care Retail Analyst Name Role Phone Nadeem Lopez Unavailable Unavailable Andrew Flores Unavailable Unavailable Darryl Nam A Unavailable Unavailable Ilieva, Antoaneta Unavailable Unavailable Nadeem Lopez Unavailable Unavailable Ilileonarda, Antoaneta I Unavailable Unavailable Darryl Nam A Unavailable Unavailable Unavailable Unavailable Unavailable Darryl Nam MD A Primary Care Provider [phone] MD WENDY OLVERA Attending Unavailab adrianna Nam, Dr. Cheema [...] Darryl Nam MD A Primary Care Provider [phone] ITA KING Referring Unavailable DARRYL NAM A [...] Darryl Primary Care Unavailable Killian PETTY, Darryl A Primary Care Provider KILLIAN, DARRYL A Primary Care Unavailable DIANE LOPEZ Attending Unavailable Killian PETTY, Dr. Cheema Primary Care Provider Killian PETTY, Dr. Cheema Attending Provider Dr. Darryl Nam MD Referring Provider [phone] Nam, Darryl Primary Care Unavailable Nam, Darryl Attending Unavailable Nam, Darryl Referring Unavailable Nam, Darryl Attending Unavailable Nam, Darryl Referring Unavailable Nam, Darryl Primary Care Unavailable Margarita Swenson Attending Unavailable Nam, Darryl Referring Unavailable Nam, Darryl Primary Care Unavailable Nam, Darryl Attending Unavailable Nam, Darryl Referring Unavailable Nam, Darryl Primary Care Unavailable Nam, Darryl Attending Unavailable Nam, Darryl Primary Care Unavailable Nam, Darryl Attending Unavailable Nam, Darryl Referring Unavailable Nam, Darryl Primary Care Unavailable Nam, Darryl Primary Care Unavailable Nam, Darryl Attending Unavailable Nam, Darryl Referring Unavailable Nam, Darryl Primary Care Unavailable Nam, Darryl Attending Unavailable Messi [employer] PL[employer] SHAPER-CMargarita Attending Provider Allergies Allergy Classification Reported Allergen(s) Allergy Type Date of Onset Reaction(s) Facility (20 sources) Meperidine; Translations: [Demerol TABS] Drug Allergy 06-28-19 19 Unknown, Hallucinations [facility] Comment on above: MENTAL CHANGES CRAZ Y,MEAN- ANXIETY (9 sources) Adhesive Tape; Translations: [adhesive tape] Propensity to adverse reactions 02-06-20 21 skin breakdown [facility] Comment on above: coverlet bandaid-rub berized bandaid (6 sources) Meperidine; Translations: [MEPERIDINE (PF)] Drug Allergy 10-09-19 13 Mental Status Change [facility] (6 sources) Pethidine analog; Translations: [OPIOIDS-MEPERI DINE AND RELATED] Propensity to adverse reactions 12-22-19 03 GI Upset [facility] (4 sources) Coverlet [Other] Propensity to adverse reactions 12-22-19 03 [facility] (5 sources) Meperidine; Translations: [MEPERIDINE] Drug Allergy 06-28-19 19 [facility] Other [place] [facility] (2 sources) OTHER; Translations: [OTHER] Propensity to adverse reactions (disorder) 12-22-19 [facility] Other [place] [facility] Medications Current Medications Medication Drug Class(es) [...] inhalation INHALE 1 PUFF DAILY - Active Albuterol (20 sources) beta2-Adrenergic Agonist Start: 05-12-2023 [...] hydrochloride 0.206 mg/actuat metered dose nasal spray (20 sources) Histamine-1 Receptor Antagonist Start: 02-06-20 Azelastine Active 1 SPRAY INTRANASAL TWICE A DAY February 05, 2021 12:00am Start: 10-29-2020 Azelastine 205 .5 mcg (0.15 %) [place],Non-Aerosol Active 1 NMA INTRANASAL TWICE A DAY February 05, 2021 12:00am Budesonide-Formoterol (8 sources) Corticosteroid, beta2-Adrenergic Agonist Start: 02-05-2021 take [...] as needed. cholecalciferol 0.025 mg oral capsule (10 sources) Vitamin D Start: 01-07-20 take 1 capsule by mouth once daily Cholecalciferol (Vitamin D3) 25 mcg (1,000 unit) capsule Active 25 ug PO daily January 06, 2025 12:00am Start: 09-28-2023 take 1 capsule by mo [facility] once daily Vitamin D3 25 mcg (1,000 unit) capsule TAKE ONE CAPSULE BY MOUTH EVERY DAY - Active ciprofloxacin 500 mg oral tablet (4 sources) Quinolone Antimicrobial Start: 08-13-2017 take 1 tablet by mouth twice daily ciprofloxacin HCl (CIPRO) 500 mg tablet Take 1 tablet by mouth twice daily. 6 tablet 08/13/2017 Active Comment on above: Take 1 tablet by [facility] twice daily. 0.5 ml dulaglutide 3 mg/ml auto-injector (15 sources) GLP-1 Receptor Agonist Start: 06-25-2023 Trulicity 1.5 mg/0.5 mL subcutaneous pen injector inject 0.5 milliliters ( 1 AND 1/2 milligrams ) subcutaneously ev... (REFER TO PRESCRIPTION NOTES). - Active Start: 02-10-2022 Trulicity 0.75 MG/0.5ML Subcutaneous Solution Pen-injector Quantity: 2 Refills: 0 Ordered: 05-Mar-2022 DO Start : 10-Feb-2022 Active fluticasone propionate 0.05 mg/actuat metered dose nasal spray (20 sources) Corticosteroid Start: 02-05-2021 Fluticasone Pr opionate Active 2 SPRAY INTRANASAL DAILY February 05, 2021 12:00am Start: 10-29-2020 Fluticasone Pr opionate 50 mcg/actuation [place],Suspension Active 2 NMA INTRANASAL DAILY February 05, [...] Take 20 mg by mouth once daily. pantoprazole 40 mg delayed release oral tablet (20 sources) Proton Pump Inhibitor Start: 02-06-20 End: 09-29-19 24 take 1 tablet by mouth once daily Pantoprazole 40 mg tablet,delayed release (DR/EC) Active 40 mg PO DAILY February 05, 2021 12:00am polyethylene glycol 3350 634373 mg / potassium chloride 2970 mg / sodium bicarbonate 6740 mg / sodium chloride 5860 mg / sodium sulfate 60568 mg powder for oral solution (1 source) Osmotic Laxative Start: 01-07-20 25 Peg 3350-Electrolytes (Golytely) 236-22.74-6.74 -5.86 gram recon soln Active 240 mL PO Q10M 4000 0 January 06, 2025 12:00am as directed for split dose bowel prep potassium gluconate 2.5 meq oral tablet (4 [...] 6 hours as needed for Nausea/Vomiting. Psyllium (8 sources) Start: 02-06-20 take 1 [tsp_us] by mouth three times daily Psyllium (Psyllium Husk Fibre) Powder Active 1 tsp PO THREE TIMES A DAY February 05, 2021 2:12pm Start: 02-05-2021 End: 01-06-2025 take 1 [tsp_us] by mouth three times daily Psyllium (Psyllium Husk Fibre) Powder Discontinued 1 tsp PO THREE TIMES A DAY February 05, 2021 12:00am January 06, 2025 3:01pm Start: 02-05-2021 take 1 [tsp_us] by m outh three times daily Psyllium (Psyllium Husk Fibre) Powder Active 1 tsp PO THREE TIMES A DAY February 04, 2021 11:00pm Start: 02-05-2021 take 1 [tsp_us] by m outh three times daily Psyllium (Psyllium Husk Fibre) Powder Active 1 tsp PO THREE TIMES A DAY February 05, 2021 12:00am Semaglutide (1 source) Start: 01-06-2025 Semaglutide (Ozempic) 1 mg/dose (4 mg/3 mL) pen injector Active 1 mg SC EVERY WEEK January 06, 2025 12:00am SITagliptin 25 mg oral tablet (20 [...] daily Quantity: 30 Refills: 5 Ordered: 20-Mar-2022 Wendy Olvera MD Start : 02-Sep-2021 Active Start: 09-02-2021 Spironolactone 100 MG Oral Tablet Quantity: 30 Refills: 0 Ordered: 02-Sep-2021 DO Start : 02-Sep-2021 Active Start: 07-24-2020 End: 01-06-2025 take 2 tablets by mouth once daily Spironolactone 50 MG tablet Discontinued 100 mg PO DAILY July 24, 2020 1:00am January 06, 2025 2:59pm Start: 07-24-2020 take 100 mg by mouth once daily Spironolactone Active 100 MG PO DAILY July 24, 2020 1:00am Completed/Discontinued Medications Medication Drug Class(es) Dates Sig (Normalized) Sig (Original) acetaminophen 325 mg / HYDROcodone bitartrate 5 mg oral tablet (8 sources) Opioid Agonist Start: 02-05-2021 End: 01-06-2025 Hydrocodone-Acetamin ophen 1 TABLET tablet Discontinued 1 {tbl} PO EVERY 6 HOURS NEEDED as needed for Pain 12 3 0 February 05, 2021 January 06, 2025 3:00pm Acute parotitis Acute sialoadenitis Start: 02-05-2021 take 1 tablet by arjun th every six hours as needed Hydrocodone-Acetaminophen Active 1 TABLE T PO EVERY 6 HOURS NEEDED 12 3 February 05, 2021 acetaminophen 325 mg / oxyCODONE hydrochloride 5 mg oral tablet (8 sources) Opioid Agonist Start: 07-31-2020 End: 08-04-2020 Oxycodone-Acetaminophen 1 TABLET tablet Discontinued 1 {tbl} PO [...] mg / clavulanate 125 mg oral tablet (8 sources) Penicillin-class Antibacterial Start: 02-02-2021 End: 02-05-2021 Amoxicillin-Pot Clavulanate (Augmentin) 875-125 mg tablet Discontinued 1 {tbl} PO TWICE A DAY 20 10 February 02, 2021 12:00am February 05, 2021 2:55pm carvedilol 6.25 mg oral tablet (5 sources) alpha-Adrenergic Haily, beta-Adrenergic Haily Start: 04-11-2022 End: 09-29-2023 take 1 tablet by mouth twice daily at mealtime carvedilol 6.25 mg tablet take 1 tablet by mouth twice a day with meals - No Longer Active clindamycin 300 mg oral capsule (16 sources) Lincosamide Antibacterial Start: 02-05-2021 End: 01-06-2025 take 1 capsule by mouth every six hours Clindamycin Hcl (Cleocin Hcl) 300 MG capsule Discontinued 300 mg PO EVERY 6 HOURS 40 0 February 05, 2021 12:00am January 06, 2025 2:39pm Start: 07-31-2020 End: 08-23-2020 take 1 capsule by mouth three times daily Clindamycin Hcl 300 MG capsule Discontinued 300 mg PO THREE TIMES A DAY 12 0 July 31, 2020 1:00am August 23, 2020 3:38pm Iron TABS (2 sources) Iron TABS Refill s: 0 DO Active Iron TABS Refill s: 0 Active ferrous sulfate 325 mg oral tablet (8 sources) Start: 08-27-2017 End: 01-06-2025 take 1 tablet by mouth once daily Ferrous Sulfate 325 MG tablet Discontinued 325 mg PO DAILY August 27, 2017 1:00am January 06, 2025 3:00pm fluconazole 100 mg oral tablet (1 source) [...] ml insulin glargine 100 unt/ml pen injector (9 sources) Insulin Analog Start: 10-20-2022 End: 09-29-2023 Lantus Solostar U-100 Insulin 100 unit/mL (3 mL) subcutaneous pen 8 unit daily subcutaneous (if other lows then drop to 3 units or stop) - No Longer Active Start: 02-05-2021 End: 01-06-2025 Insulin Glargine (Lantus Leydi ostar U-100 Insulin) 100 unit/mL (3 mL) Insulin Pen Discontinued 10 U SC DAILY February 05, 2021 12:00am January 06, 2025 3:00pm Iron (12 sources) Iron TABS Quanti ty: 0 Refills: 0 Ordered: 20-Jul-2017 DO Active pioglitazone 30 mg oral tablet (2 sources) Peroxisome Proliferator Receptor alpha Agonist, Peroxisome Proliferator Receptor gamma Agonist, Thiazolidinedione Pioglitazone HCl - 3 0 MG Oral Tablet Refills: 0 DO Active Potassium TABS (2 sources) Potassium TABS R efills: 0 DO Active Potassium TABS R efills: [...] Da te Episodic/Chronic Acute and chronic tonsillitis (8 sources) Acute tonsillitis; Translations: [Acute tonsillitis, unspecified] [...] 12-15-2016 07-30-2020 Chronic Deficiency and other anemia (8 sources) Pancytopenia; Translations: [Other pancytopenia] 09-02-2018 Chronic Deficiency and other anemia (8 sources) Anemia; Translations: [Anemia, unspecified] 09-02-2018 Episodic Deficiency and other anemia (8 sources) Iron deficiency anemia; Translations: [Iron deficiency anemia, unspecified] 07-30-2020 Episodic Diabetes mellitus with complications (2 sources) Type 2 diabetes mellitus with unspecified complications; Translations: [Type 2 diabetes mellitus with diabetic nephropathy] Onset: 04-12-2024 Chronic Diabetes mellitus without complication (20 sources) Diabetes mellitus; Translations: [Diabetes mellitus without mention of complication, type II or unspecified type, not stated as uncontrolled] Onset: 03-20-2017 07-30-2020 Chronic Diseases of mouth; excluding dental (20 sources) Parotitis; Translations: [Acute sialoadenitis] 02-05-2021 Episodic Diseases of white blood cells (8 sources) Leukopenia; Translations: [Decreased white blood cell [...] Chronic Comment on above: Added by Problem Lis t Migration; 2012-12-12; Moved to [facility] May 14 2013 4:03PM; Essential hypertension [...] chronic nonalcoholic liver disease] Chronic Immunity disorders (8 sources) Polyclonal gammopathy; 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] [...] and gas pain] Episodic Other gastrointestinal disorders (8 sources) Splenomegaly; Translations: [Splenomegaly, not elsewhere classified] 07-30-2020 Episodic Other liver diseases (20 sources) Steatosis of liver; Translations: [Other chronic nonalcoholic liver disease] 07-30-2020 Chronic Other liver diseases (9 sources) Non-alcoholic fatty liver; Translations: [Other chronic nonalcoholic liver disease] Chronic Other liver diseases (12 sources) Cirrhosis of liver; Translations: [Cirrhosis of liver without mention of alcohol] 01-06-2025 Chronic Other liver diseases (5 sources) Unspecified cirrhosis of liver; Translations: [Unspecified [...] [Cancer cervix - screening done] Onset: 05-07-2012 01-06-2025 Episodic Other skin disorders (8 sources) Actinic keratosis; Translations: [Actinic keratosis] 08-11-2020 Episodic Comment on above: 5 mm actinic lesion right lateral forehead Other skin disorders (8 sources) Keratosis; Translations: [Epidermal thickening, unspecified] 08-01-2020 Episodic Comment on above: 3 mm hyperkeratosis and actinic lesion right upper lip by perialar area Other upper respiratory infections (12 sources) Sinusitis; Translations: [Unspecified sinusitis (chronic)] Chronic Other upper respiratory infections (2 sources) Sinusitis; Translations: [Sinusitis] Episodic Otitis media and related conditions (10 sources) Otitis media; Translations: [Otitis media, unspecified, [...] female climacteric states] Episodic Residual codes; unclassified (8 sources) Family history of malignant neoplasm of [...] Onset: 07-07-2024 Episodic Other aftercare (1 source) senior care (current) use of insulin; Translations: [[employer] (current) use of insulin] Onset: 04-11-2022 Episodic Other aftercare (1 source) [employer] (current) use of oral 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 drugs; Translations: [senior care (current) use of oral 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 drugs] Onset: [...] Test Name Value Interpretation Reference Range Facility CBC W/Diff, Automatedon 07-0 PATH REV Reviewed Normal [facility] Comment on above: Order Comment: Order Date: 06/08/24 Order Info: 0786-1 - CMP Result Comment: SEE REPORT IN PATIENT'S EMR AMENDED REPORT 12/28/24 1537 PATH REV previously reported as: October Performed By: #### L 500.4050, L100.0100 #### [facility] [place], [address] Absolute lymphocyte countOrd ered By: Darryl Nam on 12-16-2024 Lymphocytes Auto (Unsp spec) [#/Vol] 0.78 10*3/uL Low 0.83-4.51 [facility] Absolute neutrophil countOrd ered By: Darryl Nam on 12-16-2024 Neutrophils (Bld) [#/Vol] 3.3 10*3/uL 2.0-7.7 [facility] Automated lymphocyte count a s percentage of total leukocytesOrdered By: Darryl Nam on 12-16-2024 Lymphocytes/100 WBC Auto (Unsp spec) 17.1 % Low 19-41 [facility] Basophil percentageOrdered B y: Darryl Nam on 12-16-2024 Basophils/100 WBC (Bld) 0.4 % 0-1 [facility] CBC W/Diff, Automatedon 11-21 Platelets (Bld) [#/Vol] 44 10*3/uL Invalid Interpretation Code [id number] [facility] Comment on above: Order Comment: Order Date: 12/12/24 Order Info: [id number] - CBCD Result Comment: CRITICAL VALUE CALLED TO Tosha HECTOR 12/16/24 1451 Nuha Emmanuel. RESULTS READ BACK BY SAME. AMENDED REPORT 12/16/24 1451 PLT previously reported as: 44 *L K/mm3 Performed By: #### L 100.0100 #### [facility] [address] [place], [address] Eosinophil percentageOrdered By: Darryl Nam on 12-16-2024 Eosinophils/100 WBC (Bld) 3.1 % 0-5 [facility] Erythrocyte distribution wid th ratioOrdered By: Darryl Nam on 12-16-2024 Erythrocyte distribution width (RBC) [Ratio] 13.4 % 11.6-14.6 [facility] Erythrocyte distribution wid th standard deviationOrdered By: Darryl Nam on 12-16-2024 Erythrocyte distribution width (RBC) [Ratio] 46.1 fl High 35.1-43.9 [facility] Hematocrit Auto (Bld) [Volum e fraction]Ordered By: Darryl Nam on 12-16-2024 Hematocrit (Bld) [Volume fraction] 37.3 % 37-47 [facility] Hemoglobin measurementOrdere d By: Darryl Nam on 12-16-2024 Hemoglobin (Bld) [Mass/Vol] 12.8 g/dL 12.0-15.0 [facility] Immature granulocytes/100 WB C Auto (Bld)Ordered By: Darryl Nam on 12-16-2024 Immature granulocytes/100 WBC (Bld) 0.200 % 0.0-0.9 [facility] Comment on above: IG% - Immature Granu locytes (promyelocytes, myelocytes and metamyelocytes) > 1% indicates that a LEFT SHIFT is Present. MCV (mean corpuscular volume ) determinationOrdered By: Darryl Nam on 12-16-2024 MCV (RBC) [Entitic vol] 93.5 fL 81-99 [facility] Mean corpuscular hemoglobin (MCH) determinationOrdered By: Darryl Nam on 12-16-2024 MCH (RBC) [Entitic mass] 32.1 pg High 27.0-32.0 [facility] Mean corpuscular hemoglobin concentration (MCHC) determinationOrdered By: Darryl Nam on 12-16-2024 MCHC (RBC) [Mass/Vol] 34.3 g/dL 32-36 [facility] Mean platelet volume determi nationOrdered By: Darryl Nam on 12-16-2024 Platelet mean volume (Bld) [Entitic vol] 11.2 fL 6.2-12.0 [facility] Monocyte percentageOrdered B y: Darryl Nam on 12-16-2024 Monocytes/100 WBC (Bld) 6.8 % 0-10 [facility] Neutrophil percentageOrdered By: Darryl Nam on 12-16-2024 Neutrophils/100 WBC (Bld) 72.4 % High 47-70 [facility] Nucleated red blood cell per centageOrdered By: Darryl Nam on 12-16-2024 Nucleated RBC/100 WBC (Bld) [Ratio] 0 % 0-5 [facility] Platelet countOrdered By: Jo Ann Nam on 12-16-2024 Platelets (Bld) [#/Vol] 44 10*3/uL Low 150-450 [facility] Comment on above: CRITICAL VALUE SIFUENTES D KAPIL HECTOR12/16/24 1451 Nuha Emmanuel.RESULTS READ BACK BY SAME. Previous reported result: 44 [id number] by: DORIAN on 12/16/24:1451 AMENDED REPORT 12/16/24 1451 PLT previously reported as: 44 *L K/mm3 RBC Auto (Bld) [#/Vol]Ordere d By: Darryl Nam on 12-16-2024 RBC (Bld) [#/Vol] 3.99 10*6/uL Low 4.2-5.4 [facility] White blood cell (WBC) count Ordered By: Darryl Nam on 12-16-2024 WBC (Bld) [#/Vol] 4.6 10*3/uL 4.4-11.0 [facility] Fructosamineon 12-14-2024 FRUCTOSAMINE 282 umol/L Normal 0-285 [facility] Comment on above: Result Comment: Publ ished reference interval for apparently healthy subjects between age 20 and 60 is 205 - 285 umol/L and in a poorly controlled diabetic population is 228 - 563 umol/L with a mean of 396 umol/L. Performed at: [facility] [id number] Gluing Machine Operator Automatic: Jeronimo Fontenot PhD, Phone: [phone] Performed By: #### L 744.2332, L100.3197 #### [facility] [place], [address] Absolute lymphocyte countOrd ered By: Darryl Nam on 12-12-2024 Lymphocytes Auto (Unsp spec) [#/Vol] 0.92 10*3/uL 0.83-4.51 [facility] Absolute neutrophil countOrd ered By: Darryl Nam on 12-12-2024 Neutrophils (Bld) [#/Vol] 3.1 10*3/uL 2.0-7.7 [facility] Activated partial thrombopla stin time (aPTT) in platelet poor plasma by coagulation aOrdered By: Darryl Nam on 12-12-2024 aPTT Coag (PPP) [Time] 33.2 s 24.1-36.2 [facility] Anion gap in Serum or Plasma Ordered By: Darryl Nam on 12-12-2024 Anion gap [Moles/Vol] 8 mmol/L 5-15 [facility] Automated lymphocyte count a s percentage of total leukocytesOrdered By: Darryl Nam on 12-12-2024 Lymphocytes/100 WBC Auto (Unsp spec) 19.9 % 19-41 [facility] BUN/creatinine ratioOrdered By: Darryl Nam on 12-12-2024 Urea nitrogen/Creatinine [Mass ratio] 10.2 mg/mg 10-20 [facility] Basophil percentageOrdered B y: Darryl Nam on 12-12-2024 Basophils/100 WBC (Bld) 0.4 % 0-1 [facility] Bilirubin, totalOrdered By: Darryl Nam on 12-12-2024 Bilirubin [Mass/Vol] 1.51 mg/dL High 0.00-1.30 [place] Blood manual differential co mment interpretation (narrative result)Ordered By: Darryl Nam on 12-12-2024 Manual differential comment Aditya (Bld) [Interp] SCANNED [facility] Carbon dioxide, total [Moles /volume] in Central venous bloodOrdered By: Darryl Nam on 12-12-2024 CO2 [Moles/Vol] 23.9 mmol/L 21.0-32.0 [facility] Chloride assayOrdered By: Jo Ann Nam on 12-12-2024 Chloride [Moles/Vol] 109 mmol/L High 98-108 [place] Comprehensive Metabolic Prof ilon 12-12-2024 Albumin [Mass/Vol] 3.2 g/dL Low 3.4-4.8 [facility] Comment on above: Order Comment: Order Date: 06/08/24 Order Info: 0786-1 - CMP Performed By: #### L 500.4050, L100.0100 #### [facility] [address] [place], [place], [id number] Albumin/Globulin [Mass ratio] 1.2 {ratio} Normal 0.9-2.4 [facility] Comment on above: Order Comment: Order Date: 06/08/24 Order Info: 0786-1 - CMP Performed By: #### L 500.4050, L100.0100 #### [facility] [address] [place], [address] ALK PHOS 115 U/L High 35-104 [facility] Comment on above: Order Comment: Order Date: 06/08/24 Order Info: 0786-1 - CMP Performed By: #### L 500.4050, L100.0100 #### [facility] [address] [place], [address] ALT [Catalytic activity/Vol] 20 U/L Normal <=34 [facility] Comment on above: Order Comment: Order Date: 06/08/24 Order Info: 0786-1 - CMP Performed By: #### L 500.4050, L100.0100 #### [facility] [address] [place], [address] AST [Catalytic activity/Vol] 36 U/L High <=31 [facility] Comment on above: Order Comment: Order Date: 06/08/24 Order Info: 0786-1 - CMP Performed By: #### L 500.4050, L100.0100 #### [facility] [address] [place], [address] Bilirubin [Mass/Vol] 1.51 mg/dL High 0.00-1.30 [place] Comment on above: Order Comment: Order Date: 06/08/24 Order Info: 0786-1 - CMP Performed By: #### L 500.4050, L100.0100 #### [facility] [address] [place], [address] BUN/CRE 10.2 RATIO Normal 10-20 [facility] Comment on above: Order Comment: Order Date: 06/08/24 Order Info: 0786-1 - CMP Performed By: #### L 500.4050, L100.0100 #### [facility] [address] [place], [address] Calcium [Mass/Vol] 9.1 mg/dL Normal 7.6-11.0 [facility] Comment on above: Order Comment: Order Date: 06/08/24 Order Info: 0786-1 - CMP Performed By: #### L 500.4050, L100.0100 #### [facility] [address] [place], [address] Chloride [Moles/Vol] 109 mmol/L High 98-108 [place] Comment on above: Order Comment: Order Date: 06/08/24 Order Info: 0786-1 - CMP Performed By: #### L 500.4050, L100.0100 #### [facility] [address] [place], [address] CO2 [Moles/Vol] 23.9 mmol/L Normal 21.0-32.0 [facility] Comment on above: Order Comment: Order Date: 06/08/24 Order Info: 0786-1 - CMP Performed By: #### L 500.4050, L100.0100 #### [facility] [address] [place], [address] Creatinine [Mass/Vol] 1.18 mg/dL Normal 0.70-1.20 [facility] Comment on above: Order Comment: Order Date: 06/08/24 Order Info: 0786-1 - CMP Performed By: #### L 500.4050, L100.0100 #### [facility] [address] [place], [address] GAP 8 Normal 5-15 [facility] Comment on above: Order Comment: Order Date: 06/08/24 Order Info: 0786-1 - CMP Performed By: #### L 500.4050, L100.0100 #### [facility] [address] [place], [address] GFR/1.73 sq M.predicted among non-blacks MDRD (S/P/Bld) [Vol rate/Area] 52 mL/min/{1.73_m2} Low >60 [facility] Comment on above: Order Comment: Order Date: 06/08/24 Order Info: 0786-1 - CMP Result Comment: mL/m in/1.73m2 CKD-EPI Creatinine Equation (2020) Performed By: #### L 500.4050, L100.0100 #### [facility] [address] [place], [address] Globulin (S) [Mass/Vol] 2.6 g/dL Normal 2.2-4.2 [facility] Comment on above: Order Comment: Order Date: 06/08/24 Order Info: 0786-1 - CMP Performed By: #### L 500.4050, L100.0100 #### [facility] [address] [place], [place], [address] Glucose [Mass/Vol] 163 mg/dL High 70-99 [facility] Comment on above: Order Comment: Order Date: 06/08/24 Order Info: 0786-1 - CMP Performed By: #### L 500.4050, L100.0100 #### [facility] [address] [place], [address] Potassium [Moles/Vol] 4.4 mmol/L Normal 3.3-5.1 [facility] Comment on above: Order Comment: Order Date: 06/08/24 Order Info: 0786-1 - CMP Result Comment: Hemo lysis present, Results??could be affected. ?? Performed By: #### L 500.4050, L100.0100 #### [facility] [address] [place], [address] Sodium [Moles/Vol] 142 mmol/L Normal 133-145 [facility] Comment on above: Order Comment: Order Date: 06/08/24 Order Info: 0786-1 - CMP Performed By: #### L 500.4050, L100.0100 #### [facility] [address] [place], [address] T PROT 5.8 g/dL Low 5.9-8.4 [facility] Comment on above: Order Comment: Order Date: 06/08/24 Order Info: 0786-1 - CMP Performed By: #### L 500.4050, L100.0100 #### [facility] [address] [place], [address] Urea nitrogen [Mass/Vol] 12 mg/dL Normal 4-19 [facility] Comment on above: Order Comment: Order Date: 06/08/24 Order Info: 0786-1 - CMP Performed By: #### L 500.4050, L100.0100 #### [facility] [address] [place], [address] Eosinophil percentageOrdered By: Darryl Nam on 12-12-2024 Eosinophils/100 WBC (Bld) 3.5 % 0-5 [facility] Erythrocyte distribution wid th ratioOrdered By: Darryl Nam on 12-12-2024 Erythrocyte distribution width (RBC) [Ratio] 13.7 % 11.6-14.6 [facility] Erythrocyte distribution wid th standard deviationOrdered By: Darryl Nam on 12-12-2024 Erythrocyte distribution width (RBC) [Ratio] 48.2 fl High 35.1-43.9 [facility] Glomerular filtration rate ( GFR) estimation/1.73 sq m using serum, plasma, or whole bOrdered By: Darryl Nam on 12-12-2024 GFR/1.73 sq M.predicted among non-blacks MDRD (S/P/Bld) [Vol rate/Area] 52 mL/min/{1.73_m2} Low >60 [facility] Comment on above: mL/min/1.73m2 CKD-EP I Creatinine Equation (2020) Hematocrit Auto (Bld) [Volum e fraction]Ordered By: Darryl Nam on 12-12-2024 Hematocrit (Bld) [Volume fraction] 39.1 % 37-47 [facility] Hemoglobin A1con 12-12-2024 HbA1c (Bld) [Mass fraction] 6.4 % High <=5.6 [facility] Comment on above: Order Comment: Order Date: 06/08/24 Order Info: 0786-1 - CMP Result Comment: Norm al < 5.7 % Prediabetic 5.7 - 6.4 % Diabetic >or= 6.5 % Please note range changes. Performed By: #### L 500.4050, L100.0100 #### [facility] [address] [place], [address] Hemoglobin A1c percentageOrd ered By: Darryl Nam on 12-12-2024 HbA1c (Bld) [Mass fraction] 6.4 % High <5.7 [facility] Comment on above: Normal < 5.7 % Predi abetic 5.7 - 6.4 % Diabetic >or= 6.5 % Please note range changes. Hemoglobin measurementOrdere d By: Darryl Nam on 12-12-2024 Hemoglobin (Bld) [Mass/Vol] 13.0 g/dL 12.0-15.0 [facility] Immature granulocytes/100 WB C Auto (Bld)Ordered By: Darryl Nam on 12-12-2024 Immature granulocytes/100 WBC (Bld) 0.200 % 0.0-0.9 [facility] Comment on above: IG% - Immature Granu locytes (promyelocytes, myelocytes and metamyelocytes) > 1% indicates that a LEFT SHIFT is Present. International normalized rat io (INR) calculationOrdered By: Darryl Nam on 12-12-2024 INR Coag (Bld) [Relative time] 1.2 {INR} [facility] - Chemistry and C hemistry - challengeOrdered By: Darryl Nam on 12-12-2024 AST [Catalytic activity/Vol] 36 U/L High <32 [facility] MCV (mean corpuscular volume ) determinationOrdered By: Darryl Nam on 12-12-2024 MCV (RBC) [Entitic vol] 95.4 fL 81-99 [facility] Mean corpuscular hemoglobin (MCH) determinationOrdered By: Darryl Nam on 12-12-2024 MCH (RBC) [Entitic mass] 31.7 pg 27.0-32.0 [facility] Mean corpuscular hemoglobin concentration (MCHC) determinationOrdered By: Darryl Nam on 12-12-2024 MCHC (RBC) [Mass/Vol] 33.2 g/dL 32-36 [facility] Mean platelet volume determi nationOrdered By: Darryl Nam on 12-12-2024 Platelet mean volume (Bld) [Entitic vol] 11.5 fL 6.2-12.0 [facility] Microalb:Creat Ratio,Random URon 12-12-2024 Creatinine [Mass/Vol] 242.00 mg/dL High 28.00- 217. 00 [facility] Comment on above: Order Comment: Order Date: 08/08/24Order Info: 0779-1 - MIACREOrder Info: [id number] - MIALB Performed By: #### L 3300.1000, L501.9520, L101.9900, L500.4050, L502.0250, L509.6000, L3100.5475, L3400.0100, L501.6710, L509.1000, L3400.8000, L3100.3450 #### [facility] [address] [place], [place], [id number] MALB:CREAT 14.4 mg/g CRE Normal [facility] Comment on above: Order Comment: Order Date: 08/08/24Order Info: 0779-1 - MIACREOrder Info: [id number] - MIALB Performed By: #### L 3300.1000, L501.9520, L101.9900, L500.4050, L502.0250, L509.6000, L3100.5475, L3400.0100, L501.6710, L509.1000, L3400.8000, L3100.3450 #### [facility] [address] [place], [place], [id number] MICROALBUMIN,UR 34.9 mg/L Normal NO RANGE EST. [facility] Comment on above: Order Comment: Order Date: 08/08/24Order Info: 0779-1 - MIACREOrder Info: [id number] - MIALB Performed By: #### L 3300.1000, L501.9520, L101.9900, L500.4050, L502.0250, L509.6000, L3100.5475, L3400.0100, L501.6710, L509.1000, L3400.8000, L3100.3450 #### [facility] [address] [place], [place], [id number] Monocyte percentageOrdered B y: Darryl Nam on 12-12-2024 Monocytes/100 WBC (Bld) 8.0 % 0-10 [facility] Neutrophil percentageOrdered By: Darryl Nam on 12-12-2024 Neutrophils/100 WBC (Bld) 68.0 % 47-70 [facility] Nucleated red blood cell per centageOrdered By: Darryl Nam on 12-12-2024 Nucleated RBC/100 WBC (Bld) [Ratio] 0 % 0-5 [facility] Partial Thromboplast Timeon 12-12-2024 aPTT Coag (Bld) [Time] 33.2 s Normal 24.1-36.2 [facility] Comment on above: Order Comment: Order Date: 06/08/24 Order Info: 0786-1 - CMP Performed By: #### L 500.4050, L100.0100 #### [facility] [address] [place], [place], [id number] Platelet countOrdered By: Jo Ann Nam on 12-12-2024 Platelets (Bld) [#/Vol] 46 10*3/uL Low 150-450 [facility] Comment on above: CRITICAL VALUE SIFUENTES D TO B. [id number]/23/25 1608 Nuha Emmanuel.RESULTS READ BACK BY SAME. Platelet estimateOrdered By: Darryl Nam on 12-12-2024 Platelets LM Ql (Bld) MKD DEC ADEQ [facility] Potassium measurement (mass/ volume)Ordered By: Darryl Nam on 12-12-2024 Potassium (Unsp spec) [Mass/Vol] 4.4 mmol/L 3.3-5.1 [facility] Comment on above: Hemolysis present, R esults could be affected. Prothrombin Time w/INRon INR Coag (PPP) [Relative time] 1.2 {INR} Normal [facility] Comment on above: Order Comment: Order Date: 06/08/24 Order Info: 0786-1 - CMP Performed By: #### L 500.4050, L100.0100 #### [facility] [address] [place], [address] PT Coag (PPP) [Time] 15.5 s High 11.7-14.9 [place] Comment on above: Order Comment: Order Date: 06/08/24 Order Info: 0786-1 - CMP Performed By: #### L 500.4050, L100.0100 #### [facility] [address] [place], [address] Prothrombin timeOrdered By: Darryl Nam on 12-12-2024 PT Coag (PPP) [Time] 15.5 s High 11.7-14.9 [place] RBC Auto (Bld) [#/Vol]Ordere d By: Darryl Nam on 12-12-2024 RBC (Bld) [#/Vol] 4.10 10*6/uL Low 4.2-5.4 [facility] Random urine creatinine sera urement (mass/volume)Ordered By: Darryl Nam on 12-12-2024 Creatinine Unsp time (U) [Mass/Vol] 242.00 mg/dL High 28.00-217. 00 [facility] Review by pathologistOrdered By: Darryl Nam on 12-12-2024 Pathologist review Aditya (Unsp spec) [Interp] Cynthia givens [facility] Pathologist review Aditya (Unsp spec) [Interp] Reviewed [facility] Comment on above: Previous reported re sult: Cynthia givens Edited by: AUSTYN on 12/28/24:1537SEE REPORT IN PATIENT'S EMR AMENDED REPORT 12/28/24 1537 PATH REV previously reported as: Cynthia givens Serum creatinine measurement (mass/volume)Ordered By: Darryl Nam on 12-12-2024 Creatinine [Mass/Vol] 1.18 mg/dL 0.70-1.20 [facility] Serum globulin measurementOr dered By: Darryl Nam on 12-12-2024 Globulin (S) [Mass/Vol] 2.6 g/dL 2.2-4.2 [facility] Serum glucose measurement (m ass/volume)Ordered By: Darryl Nam on 12-12-2024 Glucose [Mass/Vol] 163 mg/dL High 70-99 [facility] Serum or plasma alanine ritter otransferase (ALT) measurementOrdered By: Darryl Nam on 12-12-2024 ALT [Catalytic activity/Vol] 20 U/L <35 [facility] Serum or plasma albumin sera urement (mass/volume)Ordered By: Darryl Nam on 12-12-2024 Albumin [Mass/Vol] 3.2 g/dL Low 3.4-4.8 [facility] Serum or plasma albumin/glob ulin mass ratioOrdered By: Darryl Nam on 12-12-2024 Albumin/Globulin [Mass ratio] 1.2 {ratio} 0.9-2.4 [facility] Serum or plasma alkaline kathleen sphatase measurementOrdered By: Darryl Nam on 12-12-2024 ALP [Catalytic activity/Vol] 115 U/L High 35-104 [facility] Serum or plasma calcium sera urement (mass/volume)Ordered By: Darryl Nam on 12-12-2024 Calcium [Mass/Vol] 9.1 mg/dL 7.6-11.0 [facility] Serum or plasma urea nitroge n measurement (mass/volume)Ordered By: Darryl Nam on 12-12-2024 Urea nitrogen [Mass/Vol] 12 mg/dL 4-19 [facility] Sodium levelOrdered By: Darryl Nam on 12-12-2024 Sodium [Moles/Vol] 142 mmol/L 133-145 [facility] Total proteinOrdered By: Margaret Nam on 12-12-2024 Protein [Mass/Vol] 5.8 g/dL Low 5.9-8.4 [facility] Urine albumin measurement wi detection limit of 20 mg/L or less (mass/volume)Ordered By: Darryl Nam on 12-12-2024 Albumin DL <= 20 mg/L (U) [Mass/Vol] 34.9 mg/L NO RANGE EST. [facility] Vitamin D,25 Hydroxyon 12-12 Vitamin D 25-OH 28.6 ng/mL Low 30-100 [facility] Comment on above: Order Comment: Order Date: 06/08/24 Order Info: 0786-1 - CMP Result Comment: Sindy min D Status Deficiency: <20 ng/mL (50nmol/L) Insufficiency: 20-30 ng/mL (50-75 nmol/L) Sufficiency: 30-100 ng/mL (75-250 nmol/L) Toxicity: >100 ng/mL (>250 nmol/L) Performed By: #### L 500.4050, L100.0100 #### [facility] [address] [place], [address] White blood cell (WBC) count Ordered By: Darryl Nam on 12-12-2024 WBC (Bld) [#/Vol] 4.6 10*3/uL 4.4-11.[address] [facility] [address] FLANK WO IVCONon 08-09-19 CT FLANK WO IVCON * * *Final Report* * * DATE OF EXAM: Aug 09 2024 4:25PM [facility] 0529 - CT FLANK WO IVCON / [...] chronic liver disease, cirrhosis with portal hypertension. Rn Er: PAM Transcribe Date/Time: Aug 11 2024 9:38A Dictated by : NINO DANIELS MD This examination was interpreted and the report reviewed and electronically signed by: NINO DANIELS MD on Aug 11 2024 9:41AM EST [id number] Normal [facility] Urine Cultureon 07-20-2024 [facility] Mixed Gram Positive Organisms [place] Count <1000 [facility] Mixed contaminants. Submit a new specimen if indicated. Normal [facility] Comment on above: Performed By: #### L 500.4050, L100.0100 #### [facility] [address] [place], [address] CBC W/Diff, Automatedon 06-23 Absolute Lymph 0.81 X10 3/uL Low 0.83-4.51 [facility] Comment on above: Order Comment: Order Date: 06/08/24 Order Info: 0184-1 - CBCD Performed By: #### L 500.4050, L100.0100 #### [facility] [address] [place], [address] Absolute Neut 3.1 X10 3/uL Normal 2.0-7.7 [facility] Comment on above: Order Comment: Order Date: 06/08/24 Order Info: 0184-1 - CBCD Performed By: #### L 500.4050, L100.0100 #### [facility] [address] [place], [address] Basophils/100 WBC (Bld) 0.7 % Normal 0-1 [facility] Comment on above: Order Comment: Order Date: 06/08/24 Order Info: 0184-1 - CBCD Performed By: #### L 500.4050, L100.0100 #### [facility] [address] [place], [address] Eosinophils/100 WBC (Bld) 2.0 % Normal 0-5 [facility] Comment on above: Order Comment: Order Date: 06/08/24 Order Info: 0184-1 - CBCD Performed By: #### L 500.4050, L100.0100 #### [facility] [address] [place], [address] Erythrocyte distribution width (RBC) [Ratio] 13.6 % Normal 11.6-14.6 [facility] Comment on above: Order Comment: Order Date: 06/08/24 Order Info: 018- - CBCD Performed By: #### L 500.4050, L100.0100 #### [facility] [address] [place], [address] Hematocrit (Bld) [Volume fraction] 39.1 % Normal 37-47 [facility] Comment on above: Order Comment: Order Date: 06/08/24 Order Info: 018- - CBCD Performed By: #### L 500.4050, L100.0100 #### [facility] [address] [place], [address] Hemoglobin (Bld) [Mass/Vol] 13.5 g/dL Normal 12.0-15.0 [facility] Comment on above: Order Comment: Order Date: 06/08/24 Order Info: 0184-1 - CBCD Performed By: #### L 500.4050, L100.0100 #### [facility] [address] [place], [address] IG% 0.400 Normal 0.0-0.9 [facility] Comment on above: Order Comment: Order Date: 06/08/24 Order Info: 0184-1 - CBCD Result Comment: IG% - Immature Granulocytes (promyelocytes, myelocytes and metamyelocytes) > 1% indicates that a LEFT SHIFT is Present. Performed By: #### L 500.4050, L100.0100 #### [facility] [address] [place], [address] Lymphocytes/100 WBC (Bld) 18.1 % Low 19-41 [facility] Comment on above: Order Comment: Order Date: 06/08/24 Order Info: 0184-1 - CBCD Performed By: #### L 500.4050, L100.0100 #### [facility] [address] [place], [address] MCH (RBC) [Entitic mass] 32.1 pg High 27.0-32.0 [facility] Comment on above: Order Comment: Order Date: 06/08/24 Order Info: 0184- - CBCD Performed By: #### L 500.4050, L100.0100 #### [facility] [address] [place], [address] MCHC (RBC) [Mass/Vol] 34.5 g/dL Normal 32-36 [facility] Comment on above: Order Comment: Order Date: 06/08/24 Order Info: 018- - CBCD Performed By: #### L 500.4050, L100.0100 #### [facility] [address] [place], [address] MCV (RBC) [Entitic vol] 92.9 fL Normal 81-99 [facility] Comment on above: Order Comment: Order Date: 06/08/24 Order Info: 0184-1 - CBCD Performed By: #### L 500.4050, L100.0100 #### [facility] [address] [place], [address] Monocytes/100 WBC (Bld) 8.7 % Normal 0-10 [facility] Comment on above: Order Comment: Order Date: 06/08/24 Order Info: 0184-1 - CBCD Performed By: #### L 500.4050, L100.0100 #### [facility] [address] [place], [address] Neutrophils/100 WBC (Bld) 70.1 % High 47-70 [facility] Comment on above: Order Comment: Order Date: 06/08/24 Order Info: 0184-1 - CBCD Performed By: #### L 500.4050, L100.0100 #### [facility] [address] [place], [address] Nucleated RBC (Bld) [#/Vol] 0 10*3/uL Normal 0-5 [facility] Comment on above: Order Comment: Order Date: 06/08/24 Order Info: 0184-1 - CBCD Performed By: #### L 500.4050, L100.0100 #### [facility] [address] [place], [address] Platelet mean volume (Bld) [Entitic vol] 10.6 fL Normal 6.2-12.0 [facility] Comment on above: Order Comment: Order Date: 06/08/24 Order Info: 0184-1 - CBCD Performed By: #### L 500.4050, L100.0100 #### [facility] [address] [place], [address] Platelets (Bld) [#/Vol] 52 10*3/uL Low 150-450 [facility] Comment on above: Order Comment: Order Date: 06/08/24 Order Info: 0184-1 - CBCD Performed By: #### L 500.4050, L100.0100 #### [facility] [address] [place], [address] RBC (Bld) [#/Vol] 4.21 10*6/uL Normal 4.2-5.4 [facility] Comment on above: Order Comment: Order Date: 06/08/24 Order Info: 0184-1 - CBCD Performed By: #### L 500.4050, L100.0100 #### [facility] [address] [place], [address] RDW SD 45.7 fl High 35.1-43.9 [facility] Comment on above: Order Comment: Order Date: 06/08/24 Order Info: 0184-1 - CBCD Performed By: #### L 500.4050, L100.0100 #### [facility] [address] [place], [address] WBC (Bld) [#/Vol] 4.5 10*3/uL Normal 4.4-11.0 [facility] Comment on above: Order Comment: Order Date: 06/08/24 Order Info: 018- - CBCD Performed By: #### L 500.4050, L100.0100 #### [facility] [address] [place], [address] CRPon 07-18-2024 C-REACTIVE PROT 12.20 mg/L High 0.0-3.0 [facility] Comment on above: Order Comment: Order Date: 06/08/24 Order Info: 0786-1 - CMP Result Comment: C-Re active Protein (CRP) provides useful information for the diagnosis, therapy and monitoring of inflammatory processes and associated diseases. For the evaluation of Relative Risk for Cardiovascular Disease, a High Sensitivity CRP (HSCRP) should be ordered. Performed By: #### L 500.4050, L100.0100 #### [facility] [address] [place], [address] Comprehensive Metabolic Prof ilon 07-18-2024 Albumin [Mass/Vol] 2.7 g/dL Low 3.2-5.0 [facility] Comment on above: Order Comment: Order Date: 06/08/24 Order Info: 0184-1 - CBCD Performed By: #### L 500.4050, L100.0100 #### [facility] [address] [place], [address] Albumin/Globulin [Mass ratio] 0.8 {ratio} Low 0.9-2.4 [facility] Comment on above: Order Comment: Order Date: 06/08/24 Order Info: 0184-1 - CBCD Performed By: #### L 500.4050, L100.0100 #### [facility] [address] [place], [address] ALK P 132 U/L High 45-117 [facility] Comment on above: Order Comment: Order Date: 06/08/24 Order Info: 018-1 - CBCD Performed By: #### L 500.4050, L100.0100 #### [facility] [address] [place], [address] ALT [Catalytic activity/Vol] 25 U/L Normal 13-56 [facility] Comment on above: Order Comment: Order Date: 06/08/24 Order Info: 018-1 - CBCD Performed By: #### L 500.4050, L100.0100 #### [facility] [address] [place], [address] AST [Catalytic activity/Vol] 35 U/L Normal 15-37 [facility] Comment on above: Order Comment: Order Date: 06/08/24 Order Info: 0184-1 - CBCD Performed By: #### L 500.4050, L100.0100 #### [facility] [address] [place], [address] Bilirubin [Mass/Vol] 2.30 mg/dL High 0.20-1.00 [place] Comment on above: Order Comment: Order Date: 06/08/24 Order Info: 0184-1 - CBCD Result Comment: For patients on eltrombopag therapy, use of Dimension [place] TBIL is not recommended. Performed By: #### L 500.4050, L100.0100 #### [facility] [address] [place], [address] BUN/CRE 12.0 RATIO Normal 10-20 [facility] Comment on above: Order Comment: Order Date: 06/08/24 Order Info: 018-1 - CBCD Performed By: #### L 500.4050, L100.0100 #### [facility] [address] [place], [address] CA,Total 9.0 mg/dL Normal 8.5-10.1 [facility] Comment on above: Order Comment: Order Date: 06/08/24 Order Info: 018- - CBCD Performed By: #### L 500.4050, L100.0100 #### [facility] [address] [place], [address] Chloride [Moles/Vol] 110 mmol/L High 98-107 [place] Comment on above: Order Comment: Order Date: 06/08/24 Order Info: 018- - CBCD Performed By: #### L 500.4050, L100.0100 #### [facility] [address] [place], [address] CO2 [Moles/Vol] 23.0 mmol/L Normal 21.0-32.0 [facility] Comment on above: Order Comment: Order Date: 06/08/24 Order Info: 018- - CBCD Performed By: #### L 500.4050, L100.0100 #### [facility] [address] [place], [address] Creatinine [Mass/Vol] 1.25 mg/dL High 0.55-1.02 [facility] Comment on above: Order Comment: Order Date: 06/08/24 Order Info: 018- - CBCD Result Comment: The validity of the calculated GFR GFRAA in patients over 70 years has not been determined. Clinical correlation is essential. Performed By: #### L 500.4050, L100.0100 #### [facility] [address] [place], [address] EST GFR - AA 56 mL/min Low >60 [facility] Comment on above: Order Comment: Order Date: 06/08/24 Order Info: 018- - CBCD Result Comment: Afri can Burmese GFR Calc Performed By: #### L 500.4050, L100.0100 #### [facility] [address] [place], [address] GAP 7 Normal 5-15 [facility] Comment on above: Order Comment: Order Date: 06/08/24 Order Info: 018- - CBCD Performed By: #### L 500.4050, L100.0100 #### [facility] [address] [place], [address] GFR/1.73 sq M.predicted among non-blacks MDRD (S/P/Bld) [Vol rate/Area] 46 mL/min/{1.73_m2} Low >60 [facility] Comment on above: Order Comment: Order Date: 06/08/24 Order Info: 018- - CBCD Result Comment: Non- GFR Calc Performed By: #### L 500.4050, L100.0100 #### [facility] [address] [place], [address] Globulin (S) [Mass/Vol] 3.5 g/dL Normal 2.2-4.2 [facility] Comment on above: Order Comment: Order Date: 06/08/24 Order Info: 018- - CBCD Performed By: #### L 500.4050, L100.0100 #### [facility] [address] [place], [address] Glucose [Mass/Vol] 269 mg/dL High 74-106 [facility] Comment on above: Order Comment: Order Date: 06/08/24 Order Info: 018- - CBCD Result Comment: Gluc ose result greater than or equal to 200 mg/dL suggests DIABETES MELLITUS per A.D.A. criteria. Performed By: #### L 500.4050, L100.0100 #### [facility] [address] [place], [address] Potassium [Moles/Vol] 3.9 mmol/L Normal 3.5-5.1 [facility] Comment on above: Order Comment: Order Date: 06/08/24 Order Info: 0184-1 - CBCD Performed By: #### L 500.4050, L100.0100 #### [facility] [address] [place], [address] Sodium [Moles/Vol] 140 mmol/L Normal 136-145 [facility] Comment on above: Order Comment: Order Date: 06/08/24 Order Info: 0184-1 - CBCD Performed By: #### L 500.4050, L100.0100 #### [facility] [address] [place], [address] T PROT 6.2 g/dL Low 6.4-8.2 [facility] Comment on above: Order Comment: Order Date: 06/08/24 Order Info: 018-1 - CBCD Performed By: #### L 500.4050, L100.0100 #### [facility] [address] [place], [address] Urea nitrogen [Mass/Vol] 15 mg/dL Normal 7-18 [facility] Comment on above: Order Comment: Order Date: 06/08/24 Order Info: 0184-1 - CBCD Performed By: #### L 500.4050, L100.0100 #### [facility] [address] [place], [address] Erythrocyte Sed Rateon 07-18 SED RATE 5 mm/hr Normal 0-30 [facility] Comment on above: Order Comment: Order Date: 06/08/24 Order Info: 0184-1 - CBCD Performed By: #### L 500.4050, L100.0100 #### [facility] [address] [place], [address] CBC W/Diff, Automatedon 05-22 Absolute Lymph 1.19 X10 3/uL Normal 0.83-4.51 [facility] Comment on above: Order Comment: Order Date: 06/08/24 Order Info: 0184-1 - CBCD Performed By: #### L 500.4050, L100.0100 #### [facility] [address] [place], [address] Absolute Neut 7.4 X10 3/uL Normal 2.0-7.7 [facility] Comment on above: Order Comment: Order Date: 06/08/24 Order Info: 018- - CBCD Performed By: #### L 500.4050, L100.0100 #### [facility] [address] [place], [address] Basophils/100 WBC (Bld) 0.3 % Normal 0-1 [facility] Comment on above: Order Comment: Order Date: 06/08/24 Order Info: 018-1 - CBCD Performed By: #### L 500.4050, L100.0100 #### [facility] [address] [place], [address] Eosinophils/100 WBC (Bld) 0.5 % Normal 0-5 [facility] Comment on above: Order Comment: Order Date: 06/08/24 Order Info: 0184-1 - CBCD Performed By: #### L 500.4050, L100.0100 #### [facility] [address] [place], [address] Erythrocyte distribution width (RBC) [Ratio] 13.7 % Normal 11.6-14.6 [facility] Comment on above: Order Comment: Order Date: 06/08/24 Order Info: 0184-1 - CBCD Performed By: #### L 500.4050, L100.0100 #### [facility] [address] [place], [address] Hematocrit (Bld) [Volume fraction] 42.9 % Normal 37-47 [facility] Comment on above: Order Comment: Order Date: 06/08/24 Order Info: 018- - CBCD Performed By: #### L 500.4050, L100.0100 #### [facility] [address] [place], [address] Hemoglobin (Bld) [Mass/Vol] 14.3 g/dL Normal 12.0-15.0 [facility] Comment on above: Order Comment: Order Date: 06/08/24 Order Info: 01809-20 - CBCD Performed By: #### L 500.4050, L100.0100 #### [facility] [address] [place], [address] IG% 1.900 High 0.0-0.9 [facility] Comment on above: Order Comment: Order Date: 06/08/24 Order Info: 01809-20 - CBCD Result Comment: IG% - Immature Granulocytes (promyelocytes, myelocytes and metamyelocytes) > 1% indicates that a LEFT SHIFT is Present. Performed By: #### L 500.4050, L100.0100 #### [facility] [address] [place], [address] Lymphocytes/100 WBC (Bld) 12.4 % Low 19-41 [facility] Comment on above: Order Comment: Order Date: 06/08/24 Order Info: 01809-20 - CBCD Performed By: #### L 500.4050, L100.0100 #### [facility] [address] [place], [address] MCH (RBC) [Entitic mass] 31.0 pg Normal 27.0-32.0 [facility] Comment on above: Order Comment: Order Date: 06/08/24 Order Info: 018- - CBCD Performed By: #### L 500.4050, L100.0100 #### [facility] [address] [place], [address] MCHC (RBC) [Mass/Vol] 33.3 g/dL Normal 32-36 [facility] Comment on above: Order Comment: Order Date: 06/08/24 Order Info: 0184-1 - CBCD Performed By: #### L 500.4050, L100.0100 #### [facility] [address] [place], [address] MCV (RBC) [Entitic vol] 93.1 fL Normal 81-99 [facility] Comment on above: Order Comment: Order Date: 06/08/24 Order Info: 0184-1 - CBCD Performed By: #### L 500.4050, L100.0100 #### [facility] [address] [place], [address] Monocytes/100 WBC (Bld) 7.6 % Normal 0-10 [facility] Comment on above: Order Comment: Order Date: 06/08/24 Order Info: 0184-1 - CBCD Performed By: #### L 500.4050, L100.0100 #### [facility] [address] [place], [address] Neutrophils/100 WBC (Bld) 77.3 % High 47-70 [facility] Comment on above: Order Comment: Order Date: 06/08/24 Order Info: 0184-1 - CBCD Performed By: #### L 500.4050, L100.0100 #### [facility] [address] [place], [address] Nucleated RBC (Bld) [#/Vol] 0 10*3/uL Normal 0-5 [facility] Comment on above: Order Comment: Order Date: 06/08/24 Order Info: 0184-1 - CBCD Performed By: #### L 500.4050, L100.0100 #### [facility] [address] [place], [address] Platelet mean volume (Bld) [Entitic vol] 10.1 fL Normal 6.2-12.0 [facility] Comment on above: Order Comment: Order Date: 06/08/24 Order Info: 0184-1 - CBCD Performed By: #### L 500.4050, L100.0100 #### [facility] [address] [place], [address] Platelets (Bld) [#/Vol] 65 10*3/uL Low 150-450 [facility] Comment on above: Order Comment: Order Date: 06/08/24 Order Info: 0184-1 - CBCD Performed By: #### L 500.4050, L100.0100 #### [facility] [address] [place], [address] RBC (Bld) [#/Vol] 4.61 10*6/uL Normal 4.2-5.4 [facility] Comment on above: Order Comment: Order Date: 06/08/24 Order Info: 0184-1 - CBCD Performed By: #### L 500.4050, L100.0100 #### [facility] [address] [place], [address] RDW SD 46.2 fl High 35.1-43.9 [facility] Comment on above: Order Comment: Order Date: 06/08/24 Order Info: 0184-1 - CBCD Performed By: #### L 500.4050, L100.0100 #### [facility] [address] [place], [address] WBC (Bld) [#/Vol] 9.6 10*3/uL Normal 4.4-11.0 [facility] Comment on above: Order Comment: Order Date: 06/08/24 Order Info: 0184-1 - CBCD Performed By: #### L 500.4050, L100.0100 #### [facility] [address] [place], [address] Comprehensive Metabolic Prof ilon 06-08-2024 Albumin [Mass/Vol] 2.6 g/dL Low 3.2-5.0 [facility] Comment on above: Order Comment: Order Date: 06/08/24 Order Info: 0786-1 - CMP Performed By: #### L 500.4050, L100.0100 #### [facility] [address] [place], [address] Albumin/Globulin [Mass ratio] 0.7 {ratio} Low 0.9-2.4 [facility] Comment on above: Order Comment: Order Date: 06/08/24 Order Info: 0786-1 - CMP Performed By: #### L 500.4050, L100.0100 #### [facility] [address] [place], [address] ALK P 119 U/L High 45-117 [facility] Comment on above: Order Comment: Order Date: 06/08/24 Order Info: 0786-1 - CMP Performed By: #### L 500.4050, L100.0100 #### [facility] [address] [place], [address] ALT [Catalytic activity/Vol] 20 U/L Normal 13-56 [facility] Comment on above: Order Comment: Order Date: 06/08/24 Order Info: 0786-1 - CMP Performed By: #### L 500.4050, L100.0100 #### [facility] [address] [place], [address] AST [Catalytic activity/Vol] 24 U/L Normal 15-37 [facility] Comment on above: Order Comment: Order Date: 06/08/24 Order Info: 0786-1 - CMP Performed By: #### L 500.4050, L100.0100 #### [facility] [address] [place], [address] Bilirubin [Mass/Vol] 3.10 mg/dL High 0.20-1.00 [place] Comment on above: Order Comment: Order Date: 06/08/24 Order Info: 0786-1 - CMP Result Comment: For patients on eltrombopag therapy, use of Dimension [place] TBIL is not recommended. Performed By: #### L 500.4050, L100.0100 #### [facility] [address] [place], [address] BUN/CRE 12.9 RATIO Normal 10-20 [facility] Comment on above: Order Comment: Order Date: 06/08/24 Order Info: 0786-1 - CMP Performed By: #### L 500.4050, L100.0100 #### [facility] [address] [place], [address] CA,Total 8.9 mg/dL Normal 8.5-10.1 [facility] Comment on above: Order Comment: Order Date: 06/08/24 Order Info: 0786-1 - CMP Performed By: #### L 500.4050, L100.0100 #### [facility] [address] [place], [address] Chloride [Moles/Vol] 108 mmol/L High 98-107 [place] Comment on above: Order Comment: Order Date: 06/08/24 Order Info: 0786-1 - CMP Performed By: #### L 500.4050, L100.0100 #### [facility] [address] [place], [address] CO2 [Moles/Vol] 27.0 mmol/L Normal 21.0-32.0 [facility] Comment on above: Order Comment: Order Date: 06/08/24 Order Info: 0786-1 - CMP Performed By: #### L 500.4050, L100.0100 #### [facility] [address] [place], [address] Creatinine [Mass/Vol] 1.16 mg/dL High 0.55-1.02 [facility] Comment on above: Order Comment: Order Date: 06/08/24 Order Info: 0786-1 - CMP Result Comment: The validity of the calculated GFR GFRAA in patients over 70 years has not been determined. Clinical correlation is essential. Performed By: #### L 500.4050, L100.0100 #### [facility] [address] [place], [address] EST GFR - AA 61 mL/min Normal >60 [facility] Comment on above: Order Comment: Order Date: 06/08/24 Order Info: 0786-1 - CMP Result Comment: Afri can Burmese GFR Calc Performed By: #### L 500.4050, L100.0100 #### [facility] [address] [place], [address] GAP 5 Normal 5-15 [facility] Comment on above: Order Comment: Order Date: 06/08/24 Order Info: 0786-1 - CMP Performed By: #### L 500.4050, L100.0100 #### [facility] [address] [place], [address] GFR/1.73 sq M.predicted among non-blacks MDRD (S/P/Bld) [Vol rate/Area] 50 mL/min/{1.73_m2} Low >60 [facility] Comment on above: Order Comment: Order Date: 06/08/24 Order Info: 0786-1 - CMP Result Comment: Non- GFR Calc Performed By: #### L 500.4050, L100.0100 #### [facility] [address] [place], [address] Globulin (S) [Mass/Vol] 3.6 g/dL Normal 2.2-4.2 [facility] Comment on above: Order Comment: Order Date: 06/08/24 Order Info: 0786-1 - CMP Performed By: #### L 500.4050, L100.0100 #### [facility] [address] [place], [address] Glucose [Mass/Vol] 216 mg/dL High 74-106 [facility] Comment on above: Order Comment: Order Date: 06/08/24 Order Info: 0786-1 - CMP Result Comment: Gluc ose result greater than or equal to 200 mg/dL suggests DIABETES MELLITUS per A.D.A. criteria. Performed By: #### L 500.4050, L100.0100 #### [facility] [address] [place], [address] Potassium [Moles/Vol] 3.8 mmol/L Normal 3.5-5.1 [facility] Comment on above: Order Comment: Order Date: 06/08/24 Order Info: 0786-1 - CMP Performed By: #### L 500.4050, L100.0100 #### [facility] [address] [place], [address] Sodium [Moles/Vol] 140 mmol/L Normal 136-145 [facility] Comment on above: Order Comment: Order Date: 06/08/24 Order Info: 0786-1 - CMP Performed By: #### L 500.4050, L100.0100 #### [facility] [address] [place], [address] T PROT 6.2 g/dL Low 6.4-8.2 [facility] Comment on above: Order Comment: Order Date: 06/08/24 Order Info: 0786-1 - CMP Performed By: #### L 500.4050, L100.0100 #### [facility] [address] [place], [address] Urea nitrogen [Mass/Vol] 15 mg/dL Normal 7-18 [facility] Comment on above: Order Comment: Order Date: 06/08/24 Order Info: 0786-1 - CMP Performed By: #### L 500.4050, L100.0100 #### [facility] [address] [place], [place], [address] Adrenocorticotropic Hormoneo n 05-17-2024 ACTH 12.0 pg/mL Normal 7.2-63.3 [facility] Comment on above: Order Comment: Order Date: 06/08/24 Order Info: 018- - CBCD Result Comment: ACTH reference interval for samples collected between 7 and 10 AM. Performed By: #### L 500.4050, L100.0100 #### [facility] [address] [place], [address] Fructosamineon 05-17-2024 FRUCTOSAMINE 365 umol/L High 0-285 [facility] Comment on above: Order Comment: Order Date: 06/08/24 Order Info: 018- - CBCD Result Comment: Publ ished reference interval for apparently healthy subjects between age 20 and 60 is 205 - 285 umol/L and in a poorly controlled diabetic population is 228 - 563 umol/L with a mean of 396 umol/L. Performed at: [address] [id number] Gluing Machine Operator Automatic: Jeronimo Fontenot PhD, Phone: [phone] Performed By: #### L 500.4050, L100.0100 #### [facility] [address] [place], [place], [address] Protein Electroph, Son 05-17 Albumin [Mass/Vol] 2.8 g/dL Low 2.9-4.4 [facility] Comment on above: Order Comment: Order Date: 06/08/24 Order Info: 018- - CBCD Performed By: #### L 500.4050, L100.0100 #### [facility] [address], [address] Albumin/Globulin [Mass ratio] 0.9 {ratio} Normal 0.7-1.7 [facility] Comment on above: Order Comment: Order Date: 06/08/24 Order Info: 018- - CBCD Performed By: #### L 500.4050, L100.0100 #### [facility] [address] [place], [address] ALPHA-1 GLOBUL 0.3 g/dL Normal 0.0-0.4 [facility] Comment on above: Order Comment: Order Date: 06/08/24 Order Info: 0184-1 - CBCD Performed By: #### L 500.4050, L100.0100 #### [facility] [address] [place], [address] ALPHA-2 GLOBUL 0.5 g/dL Normal 0.4-1.0 [facility] Comment on above: Order Comment: Order Date: 06/08/24 Order Info: 0184-1 - CBCD Performed By: #### L 500.4050, L100.0100 #### [facility] [address] [place], [address] BETA GLOBULIN 1.0 g/dL Normal 0.7-1.3 [facility] Comment on above: Order Comment: Order Date: 06/08/24 Order Info: 0184-1 - CBCD Performed By: #### L 500.4050, L100.0100 #### [facility] [address] [place], [address] GAMMA GLOBULIN 1.2 g/dL Normal 0.4-1.8 [facility] Comment on above: Order Comment: Order Date: 06/08/24 Order Info: 0184-1 - CBCD Performed By: #### L 500.4050, L100.0100 #### [facility] [address] [place], [address] Globulin (S) [Mass/Vol] 3.0 g/dL Normal 2.2-3.9 [facility] Comment on above: Order Comment: Order Date: 06/08/24 Order Info: 0184-1 - CBCD Performed By: #### L 500.4050, L100.0100 #### [facility] [address] [place], [address] INTERPRETATION Comment Normal . [facility] Comment on above: Order Comment: Order Date: 06/08/24 Order Info: 018- - CBCD Result Comment: Prot ein electrophoresis scan will follow via computer, mail, or fuel conversion technician delivery. Performed By: #### L 500.4050, L100.0100 #### [facility] [address] [place], [address] M-SPIKE Not Observed Normal Not Observed [facility] Comment on above: Order Comment: Order Date: 06/08/24 Order Info: 018- - CBCD Performed By: #### L 500.4050, L100.0100 #### [facility] [address] [place], [address] NOTE: Comment: Normal . [facility] Comment on above: Order Comment: Order Date: 06/08/24 Order Info: 018- - CBCD Result Comment: SPE shows decreased albumin and total protein. Performed By: #### L 500.4050, L100.0100 #### [facility] [address] [place], [address] Protein [Mass/Vol] 5.8 g/dL Low 6.0-8.5 [facility] Comment on above: Order Comment: Order Date: 06/08/24 Order Info: 018- - CBCD Performed By: #### L 500.4050, L100.0100 #### [facility] [address] [place], [address] Quantiferon TB-Gold+on 05-17 QFT MITOGEN CINDY > 10.00 Normal . [facility] Comment on above: Order Comment: Order Date: 06/08/24 Order Info: 018- - CBCD Performed By: #### L 500.4050, L100.0100 #### [facility] [address] [place], [address] QFT NIL VALUE 0 IU/mL Normal . [facility] Comment on above: Order Comment: Order Date: 06/08/24 Order Info: 0184-1 - CBCD Performed By: #### L 500.4050, L100.0100 #### [facility] [address] [place], [address] QFT TB GOLD+ Comment Normal . [facility] Comment on above: Order Comment: Order Date: 06/08/24 Order Info: 0184-1 - CBCD Result Comment: Hardik tiFERON-TB Gold Plus is [...] for the test. Performed By: #### L 500.4050, L100.0100 #### [facility] [address] [place], [address] QFT TB POS CRIT Negative Normal Negative [facility] Comment on above: Order Comment: Order Date: 06/08/24 Order Info: 0184-1 - CBCD Result Comment: No r esponse to M [...] Chemiluminescence immunoassay methodology Performed By: #### L 500.4050, L100.0100 #### [facility] [address] [place], [address] QFT TB1+ AG CINDY 0 IU/mL Normal . [facility] Comment on above: Order Comment: Order Date: 06/08/24 Order Info: 0184-1 - CBCD Performed By: #### L 500.4050, L100.0100 #### [facility] [address], [address] QFT TB2+ AG CINDY 0.03 IU/mL Normal . [facility] Comment on above: Order Comment: Order Date: 06/08/24 Order Info: 0184-1 - CBCD Performed By: #### L 500.4050, L100.0100 #### [facility] [address] [place], [address] ANTINUCLEAR ANTIBODIES DIREC Ton 05-16-2024 BREANNE,DIRECT Negative Normal Negative [facility] Comment on above: Result Comment: Perf ormed at: [facility] [address] [id number] Gluing Machine Operator Automatic: Jeronimo Fontenot PhD, Phone: [phone] Performed By: #### L 500.4050, L100.0100 #### [facility] [address] [place], [place], [address] CORTISOL SERUMon 05-13-2024 CORTISOL 12.10 ug/dL Normal 3.44-22.45 [facility] Comment on above: Result Comment: Adul t (AM) 5.27 - 22.45 ug/dL Adult (PM) 3.44 - 16.76 ug/dL Performed By: #### L 3300.1000, L501.9520, L101.9900, L500.4050, L502.0250, L509.6000, L3100.5475, L3400.0100, L501.6710, L509.1000, L3400.8000, L3100.3450 #### [facility] [address] [place], [place], [address] CRPon 05-13-2024 C-REACTIVE PROT 10.40 mg/L High 0.0-3.0 [facility] Comment on above: Result Comment: C-Re active Protein (CRP) provides useful information for the diagnosis, therapy and monitoring of inflammatory processes and associated diseases. For the evaluation of Relative Risk for Cardiovascular Disease, a High Sensitivity CRP (HSCRP) should be ordered. Performed By: #### L 3300.1000, L501.9520, L101.9900, L500.4050, L502.0250, L509.6000, L3100.5475, L3400.0100, L501.6710, L509.1000, L3400.8000, L3100.3450 #### [facility] [address] [place], [place], [address] Comprehensive Metabolic Prof [facility] 05-13-2024 Albumin [Mass/Vol] 2.7 g/dL Low 3.2-5.0 [facility] Comment on above: Performed By: #### L 3300.1000, L501.9520, L101.9900, L500.4050, L502.0250, L509.6000, L3100.5475, L3400.0100, L501.6710, L509.1000, L3400.8000, L3100.3450 #### [facility] [address] [place], [place], [address] Albumin/Globulin [Mass ratio] 0.8 {ratio} Low 0.9-2.4 [facility] Comment on above: Performed By: #### L 3300.1000, L501.9520, L101.9900, L500.4050, L502.0250, L509.6000, L3100.5475, L3400.0100, L501.6710, L509.1000, L3400.8000, L3100.3450 #### [facility] [address] [place], [place], [address] ALK P 128 U/L High 45-117 [facility] Comment on above: Performed By: #### L 3300.1000, L501.9520, L101.9900, L500.4050, L502.0250, L509.6000, L3100.5475, L3400.0100, L501.6710, L509.1000, L3400.8000, L3100.3450 #### [facility] [address] [place], [address] ALT [Catalytic activity/Vol] 24 U/L Normal 13-56 [facility] Comment on above: Performed By: #### L 3300.1000, L501.9520, L101.9900, L500.4050, L502.0250, L509.6000, L3100.5475, L3400.0100, L501.6710, L509.1000, L3400.8000, L3100.3450 #### [facility] [address] [place], [address] AST [Catalytic activity/Vol] 38 U/L High 15-37 [facility] Comment on above: Performed By: #### L 3300.1000, L501.9520, L101.9900, L500.4050, L502.0250, L509.6000, L3100.5475, L3400.0100, L501.6710, L509.1000, L3400.8000, L3100.3450 #### [facility] [address] [place], [place], [address] Bilirubin [Mass/Vol] 1.30 mg/dL High 0.20-1.00 [place] Comment on above: Result Comment: For patients on eltrombopag therapy, use of Dimension [place] TBIL is not recommended. Performed By: #### L 3300.1000, L501.9520, L101.9900, L500.4050, L502.0250, L509.6000, L3100.5475, L3400.0100, L501.6710, L509.1000, L3400.8000, L3100.3450 #### [facility] [address] [place], [address] BUN/CRE 9.0 RATIO Low 10-20 [facility] Comment on above: Performed By: #### L 3300.1000, L501.9520, L101.9900, L500.4050, L502.0250, L509.6000, L3100.5475, L3400.0100, L501.6710, L509.1000, L3400.8000, L3100.3450 #### [facility] [address] [place], [address] CA,Total 8.7 mg/dL Normal 8.5-10.1 [facility] Comment on above: Performed By: #### L 3300.1000, L501.9520, L101.9900, L500.4050, L502.0250, L509.6000, L3100.5475, L3400.0100, L501.6710, L509.1000, L3400.8000, L3100.3450 #### [facility] [address] [place], [address] Chloride [Moles/Vol] 110 mmol/L High 98-107 [place] Comment on above: Performed By: #### L 3300.1000, L501.9520, L101.9900, L500.4050, L502.0250, L509.6000, L3100.5475, L3400.0100, L501.6710, L509.1000, L3400.8000, L3100.3450 #### [facility] [address] [place], [address] CO2 [Moles/Vol] 26.0 mmol/L Normal 21.0-32.0 [facility] Comment on above: Performed By: #### L 3300.1000, L501.9520, L101.9900, L500.4050, L502.0250, L509.6000, L3100.5475, L3400.0100, L501.6710, L509.1000, L3400.8000, L3100.3450 #### [facility] [address] [place], [address] Creatinine [Mass/Vol] 1.11 mg/dL High 0.55-1.02 [facility] Comment on above: Result Comment: The validity of the calculated GFR GFRAA in patients over 70 years has not been determined. Clinical correlation is essential. Performed By: #### L 3300.1000, L501.9520, L101.9900, L500.4050, L502.0250, L509.6000, L3100.5475, L3400.0100, L501.6710, L509.1000, L3400.8000, L3100.3450 #### [facility] [address] [place], [place], [address] EST GFR - AA 64 mL/min Normal >60 [facility] Comment on above: Result Comment: Afri can Burmese GFR Calc Performed By: #### L 3300.1000, L501.9520, L101.9900, L500.4050, L502.0250, L509.6000, L3100.5475, L3400.0100, L501.6710, L509.1000, L3400.8000, L3100.3450 #### [facility] [address] [place], [place], [address] GAP 6 Normal 5-15 [facility] Comment on above: Performed By: #### L 3300.1000, L501.9520, L101.9900, L500.4050, L502.0250, L509.6000, L3100.5475, L3400.0100, L501.6710, L509.1000, L3400.8000, L3100.3450 #### [facility] [address] [place], [place], [id number] GFR/1.73 sq M.predicted among non-blacks MDRD (S/P/Bld) [Vol rate/Area] 53 mL/min/{1.73_m2} Low >60 [facility] Comment on above: Result Comment: Non- GFR Calc Performed By: #### L 3300.1000, L501.9520, L101.9900, L500.4050, L502.0250, L509.6000, L3100.5475, L3400.0100, L501.6710, L509.1000, L3400.8000, L3100.3450 #### [facility] [address] [place], [address] Globulin (S) [Mass/Vol] 3.6 g/dL Normal 2.2-4.2 [facility] Comment on above: Performed By: #### L 3300.1000, L501.9520, L101.9900, L500.4050, L502.0250, L509.6000, L3100.5475, L3400.0100, L501.6710, L509.1000, L3400.8000, L3100.3450 #### [facility] [address] [place], [address] Glucose [Mass/Vol] 233 mg/dL High 74-106 [facility] Comment on above: Result Comment: Gluc ose result greater than or equal to 200 mg/dL suggests DIABETES MELLITUS per A.D.A. criteria. Performed By: #### L 3300.1000, L501.9520, L101.9900, L500.4050, L502.0250, L509.6000, L3100.5475, L3400.0100, L501.6710, L509.1000, L3400.8000, L3100.3450 #### [facility] [address] [place], [address] Potassium [Moles/Vol] 3.9 mmol/L Normal 3.5-5.1 [facility] Comment on above: Performed By: #### L 3300.1000, L501.9520, L101.9900, L500.4050, L502.0250, L509.6000, L3100.5475, L3400.0100, L501.6710, L509.1000, L3400.8000, L3100.3450 #### [facility] [address] [place], [address] Sodium [Moles/Vol] 142 mmol/L Normal 136-145 [facility] Comment on above: Performed By: #### L 3300.1000, L501.9520, L101.9900, L500.4050, L502.0250, L509.6000, L3100.5475, L3400.0100, L501.6710, L509.1000, L3400.8000, L3100.3450 #### [facility] [address] [place], [place], [id number] T PROT 6.3 g/dL Low 6.4-8.2 [facility] Comment on above: Performed By: #### L 3300.1000, L501.9520, L101.9900, L500.4050, L502.0250, L509.6000, L3100.5475, L3400.0100, L501.6710, L509.1000, L3400.8000, L3100.3450 #### [facility] [address] [place], [place], [id number] Urea nitrogen [Mass/Vol] 10 mg/dL Normal 7-18 [facility] Comment on above: Performed By: #### L 3300.1000, L501.9520, L101.9900, L500.4050, L502.0250, L509.6000, L3100.5475, L3400.0100, L501.6710, L509.1000, L3400.8000, L3100.3450 #### [facility] [address] [place], [place], [id number] Erythrocyte Sed Rateon 05-13 SED RATE 4 mm/hr Normal 0-30 [facility] Comment on above: Performed By: #### L 3300.1000, L501.9520, L101.9900, L500.4050, L502.0250, L509.6000, L3100.5475, L3400.0100, L501.6710, L509.1000, L3400.8000, L3100.3450 #### [facility] [address] [place], [place], [id number] Microalb:Creat Ratio,Random URon 05-13-2024 Creatinine [Mass/Vol] 136.00 mg/dL Normal NO RAN GE EST. [facility] Comment on above: Performed By: #### L 3300.1000, L501.9520, L101.9900, L500.4050, L502.0250, L509.6000, L3100.5475, L3400.0100, L501.6710, L509.1000, L3400.8000, L3100.3450 #### [facility] [address] [place], [address] MALB:CRE 15.4 mg/g CRE Normal <30 mg/g CRE [facility] Comment on above: Performed By: #### L 3300.1000, L501.9520, L101.9900, L500.4050, L502.0250, L509.6000, L3100.5475, L3400.0100, L501.6710, L509.1000, L3400.8000, L3100.3450 #### [facility] [address] [place], [address] MICROALBUMIN,UR 20.9 mg/L Normal NO RANGE EST. [facility] Comment on above: Performed By: #### L 3300.1000, L501.9520, L101.9900, L500.4050, L502.0250, L509.6000, L3100.5475, L3400.0100, L501.6710, L509.1000, L3400.8000, L3100.3450 #### [facility] [address] [place], [address] PTHINon 05-13-2024 PTH 22.5 pg/mL Normal 18.4-80.1 [facility] Comment on above: Performed By: #### L 3300.1000, L501.9520, L101.9900, L500.4050, L502.0250, L509.6000, L3100.5475, L3400.0100, L501.6710, L509.1000, L3400.8000, L3100.3450 #### [facility] [address] [place], [address] Thyroid Stim Hormone (TSH)on 05-13-2024 TSH 2.370 uIU/mL Normal 0.358-3.74 0 [facility] Comment on above: Performed By: #### L 3300.1000, L501.9520, L101.9900, L500.4050, L502.0250, L509.6000, L3100.5475, L3400.0100, L501.6710, L509.1000, L3400.8000, L3100.3450 #### [facility] [address] [place], [address] CBC W/Diff, Automatedon 02-21 Absolute Lymph 0.88 X10 3/uL Normal 0.83-4.51 [facility] Comment on above: Order Comment: Order Date: 06/08/24 Order Info: 0786-1 - CMP Performed By: #### L 500.4050, L100.0100 #### [facility] [address] [place], [address] Absolute Neut 4.2 X10 3/uL Normal 2.0-7.7 [facility] Comment on above: Order Comment: Order Date: 06/08/24 Order Info: 0786-1 - CMP Performed By: #### L 500.4050, L100.0100 #### [facility] [address] [place], [address] Basophils/100 WBC (Bld) 0.5 % Normal 0-1 [facility] Comment on above: Order Comment: Order Date: 06/08/24 Order Info: 0786-1 - CMP Performed By: #### L 500.4050, L100.0100 #### [facility] [address] [place], [address] Eosinophils/100 WBC (Bld) 2.1 % Normal 0-5 [facility] Comment on above: Order Comment: Order Date: 06/08/24 Order Info: 0786-1 - CMP Performed By: #### L 500.4050, L100.0100 #### [facility] [address] [place], [address] Erythrocyte distribution width (RBC) [Ratio] 13.4 % Normal 11.6-14.6 [facility] Comment on above: Order Comment: Order Date: 06/08/24 Order Info: 0786-1 - CMP Performed By: #### L 500.4050, L100.0100 #### [facility] [address] [place], [address] Hematocrit (Bld) [Volume fraction] 40.9 % Normal 37-47 [facility] Comment on above: Order Comment: Order Date: 06/08/24 Order Info: 0786-1 - CMP Performed By: #### L 500.4050, L100.0100 #### [facility] [address] [place], [address] Hemoglobin (Bld) [Mass/Vol] 13.5 g/dL Normal 12.0-15.0 [facility] Comment on above: Order Comment: Order Date: 06/08/24 Order Info: 0786-1 - CMP Performed By: #### L 500.4050, L100.0100 #### [facility] [address] [place], [address] IG% 0.400 Normal 0.0-0.9 [facility] Comment on above: Order Comment: Order Date: 06/08/24 Order Info: 0786-1 - CMP Result Comment: IG% - Immature Granulocytes (promyelocytes, myelocytes and metamyelocytes) > 1% indicates that a LEFT SHIFT is Present. Performed By: #### L 500.4050, L100.0100 #### [facility] [address] [place], [address] Lymphocytes/100 WBC (Bld) 15.7 % Low 19-41 [facility] Comment on above: Order Comment: Order Date: 06/08/24 Order Info: 0786-1 - CMP Performed By: #### L 500.4050, L100.0100 #### [facility] [address] [place], [address] MCH (RBC) [Entitic mass] 31.0 pg Normal 27.0-32.0 [facility] Comment on above: Order Comment: Order Date: 06/08/24 Order Info: 0786-1 - CMP Performed By: #### L 500.4050, L100.0100 #### [facility] [address] [place], [address] MCHC (RBC) [Mass/Vol] 33.0 g/dL Normal 32-36 [facility] Comment on above: Order Comment: Order Date: 06/08/24 Order Info: 0786-1 - CMP Performed By: #### L 500.4050, L100.0100 #### [facility] [address] [place], [address] MCV (RBC) [Entitic vol] 93.8 fL Normal 81-99 [facility] Comment on above: Order Comment: Order Date: 06/08/24 Order Info: 0786-1 - CMP Performed By: #### L 500.4050, L100.0100 #### [facility] [address] [place], [address] Monocytes/100 WBC (Bld) 6.2 % Normal 0-10 [facility] Comment on above: Order Comment: Order Date: 06/08/24 Order Info: 0786-1 - CMP Performed By: #### L 500.4050, L100.0100 #### [facility] [address] [place], [address] Neutrophils/100 WBC (Bld) 75.1 % High 47-70 [facility] Comment on above: Order Comment: Order Date: 06/08/24 Order Info: 0786-1 - CMP Performed By: #### L 500.4050, L100.0100 #### [facility] [address] [place], [address] Nucleated RBC (Bld) [#/Vol] 0 10*3/uL Normal 0-5 [facility] Comment on above: Order Comment: Order Date: 06/08/24 Order Info: 0786-1 - CMP Performed By: #### L 500.4050, L100.0100 #### [facility] [address] [place], [address] Platelet mean volume (Bld) [Entitic vol] 11.1 fL Normal 6.2-12.0 [facility] Comment on above: Order Comment: Order Date: 06/08/24 Order Info: 0786-1 - CMP Performed By: #### L 500.4050, L100.0100 #### [facility] [address] [place], [address] Platelets (Bld) [#/Vol] 52 10*3/uL Low 150-450 [facility] Comment on above: Order Comment: Order Date: 06/08/24 Order Info: 0786-1 - CMP Performed By: #### L 500.4050, L100.0100 #### [facility] [address] [place], [address] RBC (Bld) [#/Vol] 4.36 10*6/uL Normal 4.2-5.4 [facility] Comment on above: Order Comment: Order Date: 06/08/24 Order Info: 0786-1 - CMP Performed By: #### L 500.4050, L100.0100 #### [facility] [address] [place], [address] RDW SD 46.0 fl High 35.1-43.9 [facility] Comment on above: Order Comment: Order Date: 06/08/24 Order Info: 0786-1 - CMP Performed By: #### L 500.4050, L100.0100 #### [facility] [address] [place], [address] WBC (Bld) [#/Vol] 5.6 10*3/uL Normal 4.4-11.0 [facility] Comment on above: Order Comment: Order Date: 06/08/24 Order Info: 0786-1 - CMP Performed By: #### L 500.4050, L100.0100 #### [facility] [address] [place], [address] Comprehensive Metabolic Prof [facility] 03-14-2024 Albumin [Mass/Vol] 2.8 g/dL Low 3.2-5.0 [facility] Comment on above: Order Comment: Order Date: 06/08/24 Order Info: 0786-1 - CMP Performed By: #### L 500.4050, L100.0100 #### [facility] [address] [place], [address] Albumin/Globulin [Mass ratio] 0.9 {ratio} Normal 0.9-2.4 [facility] Comment on above: Order Comment: Order Date: 06/08/24 Order Info: 0786-1 - CMP Performed By: #### L 500.4050, L100.0100 #### [facility] [address] [place], [address] ALK P 117 U/L Normal 45-117 [facility] Comment on above: Order Comment: Order Date: 06/08/24 Order Info: 0786-1 - CMP Performed By: #### L 500.4050, L100.0100 #### [facility] [address] [place], [address] ALT [Catalytic activity/Vol] 26 U/L Normal 13-56 [facility] Comment on above: Order Comment: Order Date: 06/08/24 Order Info: 0786-1 - CMP Performed By: #### L 500.4050, L100.0100 #### [facility] [address] [place], [address] AST [Catalytic activity/Vol] 33 U/L Normal 15-37 [facility] Comment on above: Order Comment: Order Date: 06/08/24 Order Info: 0786-1 - CMP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 [Catalytic activity/Vol] 100 U/L 33 - 110 [facility]en terology-Ad min [facility] Work Phone: ALT With P-5'-P [Catalytic activity/Vol] 18 U/L 7 - 45 [facility]Gastroen terology-Ad min [facility] Work Phone: Comment on above: Patients treated wit h Sulfasalazine may generate falsely decreased results for ALT. AST With P-5'-P [Catalytic activity/Vol] 22 U/L 9 - 39 [facility]Gastroen terology-Ad min [facility] Work Phone: Bilirubin [Mass/Vol] 1.1 mg/dL 0.0 - 1.2 MG-G astroen terology-Ad min [facility] Work Phone: Bilirubin.direct [Mass/Vol] 0.3 mg/dL 0.0 - 0.3 MG-Gastroen terology-Ad min [facility] Work Phone: Protein [Mass/Vol] 6.4 g/dL 6.4 - 8.2 MG-Gas troen terology-Ad min [facility] Work Phone: Hepatitis A Antibody, Totalo n 01-09-2022 HAV Ab IA Ql (S) Reactive Abnormal See Below MG-Gastr oen terology-Ad min [facility] Work Phone: Comment on above: SOURCE: Reference [...] See Below MG-Gastroen terology-Ad min [facility] [employer] Work Phone: Comment on above: SOURCE: Reference [...] Ag IA Ql <3.1 <10 MG-G astroen [employer]ology-Ad [employer] A [employer] Work Phone: Comment on above: SOURCE: INTERPRETIVE [...] Total; Status:Resulted - Requires Verification,Retrospective Authorization; Done: [id number] 12:56PM Performed:[facility]; Due:09Apr2022;Ordered; For:Cirrhosis, NAFLD (nonalcoholic fatty liver disease); Ordered By:Wendy Olvera; Cirrhosis, NAFLD (nonalcoholic fatty liver disease), Need for hepatitis B screening test Hepatitis B Core Antibody, Total; Status:Resulted - Requires Verification,Retrospective Authorization; Done: [id number] 12:56PM Performed:[facility]; Due:09Apr2022;Ordered; For:Cirrhosis, NAFLD (nonalcoholic fatty liver disease), Need for hepatitis B screening test; Ordered By:Wendy Olvera; Hepatitis B Surface Antibody; Status:Resulted - Requires Verification,Retrospective Authorization; Done: 09Jan2022 12:56PM Performed:[facility]; Due:09Apr2022;Ordered; For:Cirrhosis, NAFLD (nonalcoholic fatty liver disease), Need for hepatitis B screening test; Ordered By:Wendy Olvera; Hepatitis B Surface Antigen; Status:Resulted - Requires Verification,Retrospective Authorization; Done: 09Jan2022 12:56PM Performed:[facility]; Due:09Apr2022;Ordered; For:Cirrhosis, NAFLD (nonalcoholic fatty liver disease), Need for hepatitis B screening test; Ordered By:Wendy Olvera; Cirrhosis, NAFLD (nonalcoholic fatty liver disease), Need for hepatitis C screening test Hepatitis C Antibody Test; Status:Resulted - Requires Verification,Retrospective Authorization; Done: 09Jan2022 12:56PM Performed:[facility]; Due:09Apr2022;Ordered; For:Cirrhosis, NAFLD (nonalcoholic fatty liver disease), [...] - Requires Verification,Retrospective Authorization; Done: 09Jan2022 12:56PM Performed:[facility]; Due:09Apr2022;Ordered; For:Cirrhosis, NAFLD (nonalcoholic fatty liver disease), Thrombocytopenia; Ordered By:Wendy Olvera; Gkwku-9-Pjijpsmtzlv Phenotype, Serum; Status:In Progress - Specimen/Data Collected; [...] - Requires Verification,Retrospective Authorization; Done: 09Jan2022 12:56PM Performed:[facility]; Due:09Apr2022;Ordered; For:Cirrhosis, NAFLD (nonalcoholic fatty liver disease), Thrombocytopenia; Ordered By:Wendy Olvera; Complete Blood Count + Differential; Status:Resulted - Requires Verification,Retrospective Authorization; Done: 09Jan2022 12:56PM Performed:[facility]; Due:09Apr2022;Ordered; For:Cirrhosis, NAFLD (nonalcoholic fatty liver disease), Thrombocytopenia; Ordered By:Wendy Olvera; Ferritin, Serum; Status:Resulted - Requires Verification,Retrospective Authorization; Done: 09Jan2022 12:56PM Performed:[facility]; Due:09Apr2022;Ordered; For:Cirrhosis, NAFLD (nonalcoholic fatty liver disease), Thrombocytopenia; Ordered By:Wendy Olvera; Hepatic Function Panel; Status:Resulted - Requires Verification,Retrospective Authorization; Done: 09Jan2022 12:56PM Performed:[facility]; Due:09Apr2022;Ordered; For:Cirrhosis, NAFLD (nonalcoholic fatty liver disease), Thrombocytopenia; Ordered By:Wendy Olvera; Immunoglobulins (G,A,M); Status:Resulted - Requires Verification,Retrospective Authorization; Done: 09Jan2022 12:56PM Performed:[facility]; Due:09Apr2022;Ordered; For:Cirrhosis, NAFLD (nonalcoholic fatty liver disease), Thrombocytopenia; Ordered By:Wendy Olvera; IO Liver Ultrasound; Status:Hold For - Scheduling,Retrospective Authorization; Requested for:09Jan2022; Perform:In Office; Due:09Apr2022; Last Updated By:Abramczyk, Maricarmen; 01/09/2022 11:36:44 AM;Ordered; For:Cirrhosis, NAFLD (nonalcoholic fatty liver disease), Thrombocytopenia; Ordered (more content not included)... Normal [facility] Laboratory - Chemistry and C hemistry - challengeon 01-09-2022 Alpha 1 antitrypsin [Mass/Vol] 165 mg/dL 90-200 MG-Gastroen terology-Ad min [facility] [employer] Work Phone: Comment on above: To convert to umol/L , multiply mg/dL by 0.185 Alpha 1 antitrypsin phenotyping [Interp] MM [facility]-Gastroen terology-Ad min [facility] [employer] Work Phone: Comment on above: The patient appears to have a normal phenotype. All M alleles (including subtypes M1, M2, and M3) produce normal serum concentrations of zlwng-5-kepojehl inhibitor and are not associated with clinical disease. Caution in interpretation is advised if the patient has been transfused within the previous 21 days.Performed By: [employer] [place] [address] [id number] Director: Benito Irwin MD, PhD Anion gap [Moles/Vol] 12 mmol/L 10 - 20 MG- Gastroen terology-Ad min [facility] [employer] Work Phone: Calcium [Mass/Vol] 9.2 mg/dL 8.6 - 10.6 MG-Gas troen terology-Ad min [facility] [employer] Work Phone: Chloride [Moles/Vol] 103 mmol/L 98 - 107 MG-G astroen terology-Ad min [facility] Work Phone: CO2 [Moles/Vol] 27 mmol/L 21 - 32 MG-Gastro en terology-Ad min [facility] [employer] Work Phone: Creatinine [Mass/Vol] 1.21 mg/dL above high threshold See Below MG-Gastroen terology-Ad min [facility] Work Phone: Comment on above: Reference Range: 0.5 0 - 1.05 Glucose [Mass/Vol] 272 mg/dL above high threshold 74 - 99 MG-Gastroen terology-Ad min [facility] [employer] Work Phone: IgA [Mass/Vol] 485 mg/dL above high threshold 70 - 400 MG-Gastroen terology-Ad min [facility] [employer] Work Phone: Comment on above: MONOCLONAL PROTEINS MAY CAUSE FALSELY LOWRESULTS IN THIS ASSAY. SERUM PROTEINELECTROPHORESIS SHOULD BE DONE THEFIRST TEST TO EVALUATE MONOCLONAL GAMMOPATHY. IgG [Mass/Vol] 1270 mg/dL 700 - 1600 MG-Gastroe n terology-Ad min [facility] [employer] Work Phone: Comment on above: MONOCLONAL PROTEINS MAY CAUSE FALSELY LOWRESULTS IN THIS ASSAY. SERUM PROTEINELECTROPHORESIS SHOULD BE DONE THEFIRST TEST TO EVALUATE MONOCLONAL GAMMOPATHY. IgM [Mass/Vol] 79 mg/dL 40 - 230 MG-Gastroe n terology-Ad min [facility] [employer] Work Phone: Comment on above: MONOCLONAL PROTEINS MAY CAUSE FALSELY LOWRESULTS IN THIS ASSAY. SERUM PROTEINELECTROPHORESIS SHOULD BE DONE THEFIRST TEST TO EVALUATE MONOCLONAL GAMMOPATHY. Iron [Mass/Vol] 69 ug/dL 35 - 150 MG-Gastro en terology-Ad min [facility] [employer] Work Phone: Iron binding capacity [Mass/Vol] 301 ug/dL 240 - 445 MG-Gastroen terology-Ad min [facility] [employer] Work Phone: Potassium [Moles/Vol] 4.6 mmol/L 3.5 - 5.3 MG- Gastroen terology-Ad min [facility] [employer] Work Phone: Sodium [Moles/Vol] 137 mmol/L 136 - 145 MG-Gas troen terology-Ad min [facility] [employer] Work Phone: Urea nitrogen [Mass/Vol] 18 mg/dL 6 - 23 MG-Gastroen terology-Ad min [facility] [employer] Work Phone: Laboratory - Coagulationon 0 7- INR Coag (PPP) [Relative time] 1.1 {INR} 0.9 - 1.1 MG-Gastroen terology-Ad min [facility] Work Phone: PT Coag (PPP) [Time] 12.5 s 9.8 - 13.4 MG-G astroen terology-Ad min [facility] Work Phone: Laboratory - Serology - non- microon 01-09-2022 Nuclear Ab Hep2 substrate Ql (S) Negative NEGATIVE [facility]-Gastroen terology-Ad min [facility] Work Phone: Comment on above: The Antinuclear Anti body (BREANNE) test was performed using indirect immunofluorescence assay with HEp-2 cells slide. No Panel Informationon 01-09 23 % below low threshold 25 - 45 MG-Gastroen terology-Ad min [facility] Work Phone: 52 {mL/min/1.73m2} Abnormal >90 MG-Gas troen terology-Ad min [facility] Work Phone: Comment on above: CALCULATIONS OF DIANA MATED GFR ARE PERFORMED USING THE 2020 CKD-EPI STUDY REFIT EQUATION WITHOUT THE RACE VARIABLE FOR THE IDMS-TRACEABLE CREATININE METHODS.https://jasn.asnjournals.org/content/early/ N.6400632309 Negative NEGATIVE MG-Gastroen terology-Ad min [facility] Work Phone: Tobacco Screening.on 022 Fall risk assessment a) No falls within the last year [facility] [address] [employer] Work Phone: Tobacco use status CPHS b) No [facility] [address] [employer] Work Phone: Basophil percentageon 2021 Bilirubin [Mass/Vol] 1.40 mg/dL 0.20-1.00 [place] Work Phone: Comment on above: For patients on eltr ombopag therapy, use of Dimension [place] TBIL is not recommended. Chloride [Moles/Vol] 108 mmol/L 98-107 [place] Work Phone: Glucose [Mass/Vol] 211 mg/dL 74-106 [facility] Work Phone: Comment on above: Glucose result great er than or equal to 200 mg/dLsuggests DIABETES MELLITUS per A.D.A. criteria. Potassium [Moles/Vol] 4.0 mmol/L 3.5-5.1 [facility] Work Phone: Protein [Mass/Vol] 6.8 g/dL 6.4-8.2 [facility] Work Phone: Sodium [Moles/Vol] 137 mmol/L 136-145 [facility] Work Phone: Laboratory - Chemistry and C hemistry - challengeon 12-05-2021 ALP [Catalytic activity/Vol] 109 U/L 45-117 [facility] Work Phone: ALT [Catalytic activity/Vol] 24 U/L 13-56 [facility] Work Phone: CO2 [Moles/Vol] 24.0 mmol/L 21.0-32.0 [facility] Work Phone: Globulin (S) [Mass/Vol] 3.8 g/dL 2.2-4.2 [facility] Work Phone: Magnesium [Mass/Vol] 1.9 mg/dL 1.6-2.6 [place] Work Phone: Urea nitrogen/Creatinine [Mass ratio] 12.6 mg/mg 10-20 [facility] Work Phone: No Panel Informationon 12-05 Estimated GFR (MDRD) Amer 55 mL/min >60 [facility] Work Phone: Comment on above: GFR Calc Estimated GFR (MDRD) Non-Af Amer 46 mL/min >60 [facility] Work Phone: Comment on above: Non- GFR Calc Serum or plasma albumin sera urement (mass/volume)on 12-05-2021 Albumin [Mass/Vol] 3.0 g/dL 3.2-5.0 [facility] Work Phone: Serum or plasma albumin/glob ulin mass ratioon 12-05-2021 Albumin/Globulin [Mass ratio] 0.8 {ratio} 0.9-2.4 [facility] Work Phone: Serum or plasma calcium sera urement (mass/volume)on 12-05-2021 Calcium [Mass/Vol] 9.1 mg/dL 8.5-10.1 [facility] Work Phone: Serum or plasma creatinine m easurement (mass/volume)on 12-05-2021 Creatinine [Mass/Vol] 1.27 mg/dL 0.55-1.02 [facility] Work Phone: Comment on above: The validity of the calculated GFR & GFRAA in patients over 70 years has not been determined. Clinical correlation is essential. Serum or plasma urea nitroge n measurement (mass/volume)on 12-05-2021 Urea nitrogen [Mass/Vol] 16 mg/dL 7-18 [facility] Work Phone: Thin prep Papanicolaou smear with manual screeningon 12-05-2021 Thin prep Papanicolaou smear with manual screening 22 U/L 15-37 [facility] Work Phone: Thin prep Papanicolaou smear with manual screening 5 5-15 [facility] Work Phone: Absolute lymphocyte counton 11-08-2021 Lymphocytes Auto (Unsp spec) [#/Vol] 0.98 10*3/uL 0.83-4.51 [facility] Work Phone: Basophil percentageon 2021 Basophils/100 WBC (Bld) 0.4 % 0-1 [facility] Work Phone: Bilirubin [Mass/Vol] 1.20 mg/dL 0.20-1.00 [place] Work Phone: Comment on above: For patients on eltr ombopag therapy, use of Dimension [place] TBIL is not recommended. Chloride [Moles/Vol] 109 mmol/L 98-107 [place] Work Phone: [phone] Eosinophils/100 WBC (Bld) 2.8 % 0-5 [facility] Work Phone: Glucose [Mass/Vol] 202 mg/dL 74-106 [facility] Work Phone: Comment on above: Glucose result great er than or equal to 200 mg/dLsuggests DIABETES MELLITUS per A.D.A. criteria. Neutrophils (Bld) [#/Vol] 3.4 10*3/uL 2.0-7.7 [facility] Work Phone: [phone] Neutrophils/100 WBC (Bld) 68.2 % 47-70 [facility] Work Phone: Potassium [Moles/Vol] 4.1 mmol/L 3.5-5.1 [facility] Work Phone: Protein [Mass/Vol] 6.8 g/dL 6.4-8.2 [facility] Work Phone: Sodium [Moles/Vol] 138 mmol/L 136-145 [facility] Work Phone: WBC (Bld) [#/Vol] 4.9 10*3/uL 4.4-11.0 [facility] Work Phone: Blood erythrocytes count (nu mber/volume)on 11-08-2021 RBC (Bld) [#/Vol] 4.43 10*6/uL 4.2-5.4 [facility] Work Phone: Blood hemoglobin measurement (mass/volume)on 11-08-2021 Hemoglobin (Bld) [Mass/Vol] 14.4 g/dL 12.0-15.0 [facility] Work Phone: Blood lymphocytes/100 leukoc yteson 11-08-2021 Lymphocytes/100 WBC (Bld) 19.9 % 19-41 [facility] Work Phone: Blood monocytes/100 leukocyt eson 11-08-2021 Monocytes/100 WBC (Bld) 8.3 % 0-10 [facility] Work Phone: Blood platelet mean volumeon 11-08-2021 Platelet mean volume (Bld) [Entitic vol] 10.3 fL 6.2-12.0 [facility] Work Phone: Determination of erythrocyte mean corpuscular volume (MCV)on 11-08-2021 MCV (RBC) [Entitic vol] 94.1 fL 81-99 [facility] Work Phone: Hematocrit Auto (Bld) [Volum e fraction]on 11-08-2021 Hematocrit (Bld) [Volume fraction] 41.7 % 37-47 [facility] Work Phone: Laboratory - Chemistry and C hemistry - challengeon 11-08-2021 ALP [Catalytic activity/Vol] 103 U/L 45-117 [facility] Work Phone: ALT [Catalytic activity/Vol] 26 U/L 13-56 [facility] Work Phone: CO2 [Moles/Vol] 23.0 mmol/L 21.0-32.0 [facility] Work Phone: Globulin (S) [Mass/Vol] 3.9 g/dL 2.2-4.2 [facility] Work Phone: Urea nitrogen/Creatinine [Mass ratio] 11.3 mg/mg 10- [facility] Work Phone: Laboratory - Hematology and Cell countson 11-08-2021 Erythrocyte distribution width (RBC) [Entitic vol] 44.7 fL 35.1-43.9 [facility] Work Phone: Erythrocyte distribution width (RBC) [Ratio] 13.2 % 11.6-14.6 [facility] Work Phone: Immature granulocytes/100 WBC (Bld) 0.400 % 0.0-0.9 [facility] Work Phone: Comment on above: IG% - Immature Granu locytes (promyelocytes, myelocytes and metamyelocytes) > 1% indicates that a LEFT SHIFT is Present. MCH (RBC) [Entitic mass] 32.5 pg 27.0-32.0 [facility] Work Phone: Nucleated RBC/100 WBC (Bld) [Ratio] 0 % 0-5 [facility] Work Phone: MCHC Auto (RBC) [Mass/Vol]on 11-08-2021 MCHC (RBC) [Mass/Vol] 34.5 g/dL 32-36 [facility] Work Phone: No Panel Informationon 11-08 Estimated GFR (MDRD) Amer 49 mL/min >60 [facility] Work Phone: Comment on above: GFR Calc Estimated GFR (MDRD) Non-Af Amer 40 mL/min >60 [facility] Work Phone: Comment on above: Non- GFR Calc Platelets bldon 11-08-2021 Platelets (Bld) [#/Vol] 54 10*3/uL 150-450 [facility] Work Phone: Serum or plasma C reactive p rotein measurement (mass/volume)on 11-08-2021 CRP [Mass/Vol] 8.68 mg/L 0.0-3.0 [facility] Work Phone: Comment on above: C-Reactive Protein ( CRP) provides useful information for thediagnosis, therapy and monitoring of inflammatory processesand associated diseases. For the evaluation of Relative Riskfor Cardiovascular Disease, a High Sensitivity CRP (HSCRP)should be ordered. Serum or plasma albumin sera urement (mass/volume)on 11-08-2021 Albumin [Mass/Vol] 2.9 g/dL 3.2-5.0 [facility] Work Phone: Serum or plasma albumin/glob ulin mass ratioon 11-08-2021 Albumin/Globulin [Mass ratio] 0.7 {ratio} 0.9-2.4 [facility] Work Phone: Serum or plasma calcium sera urement (mass/volume)on 11-08-2021 Calcium [Mass/Vol] 9.1 mg/dL 8.5-10.1 [facility] Work Phone: Serum or plasma creatinine m easurement (mass/volume)on 11-08-2021 Creatinine [Mass/Vol] 1.42 mg/dL 0.55-1.02 [facility] Work Phone: Comment on above: The validity of the calculated GFR & GFRAA in patients over 70 years has not been determined. Clinical correlation is essential. Serum or plasma urea nitroge n measurement (mass/volume)on 11-08-2021 Urea nitrogen [Mass/Vol] 16 mg/dL 7-18 [facility] Work Phone: Thin prep Papanicolaou smear with manual screeningon 11-08-2021 Thin prep Papanicolaou smear with manual screening 26 U/L 15-37 [facility] Work Phone: Thin prep Papanicolaou smear with manual screening 6 5-15 [facility] Work Phone: Radiologyon 10-25-2021 MG Breast Screening FINAL REPORT Interpreted by: YUNI BHAKTA ALEX, MD and PRISCILLA NELSON JOSEPH, MD 10/25/21 14:47 Patient Name: YARA BETH STUDY: DIGITAL DIAG MAMMO LEFT UNILAT; 10/25/2021 2:11 pm ACCESSION NUMBER(S): [id number] [facility]: Mamm - Screening Mammogram w / Tomosynthesison 09-30-2021 MG Breast Screening FINAL REPORT Interpreted by: JUSTO QUILES NELSON, MD 10/01/21 08:23 Patient Name: YARA BETH STUDY: DIGITAL MAMM SCREENING W/ ROBERT; 09/30/2021 2:45 pm ACCESSION NUMBER(S): [id number] ORDERING CLINICIAN: ANDREW NEVAREZ Normal [facility] [facility] Work Phone: LMPon 09-23-2021 Last menstrual period start date AGE 50 -[place] [facility] Work Phone: TALLOW REFINER - Office Visiton TALLOW REFINER - Office Visit Diagnoses/Problems Assessed Visit for [...] RTO 1 year Provider Impressions 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 Breast CA screening 3. Cervical CA screening 4. Colon CA screening 5. Menopause Chief Complaint ANNUAL History of Present Illness PAP 19 NEG HPV NEG, 03-29-14 NEG HPV NEG (H/O LEEP x2 in 2008 - normal since 2nd LEEP) MAMMO 08-30-20 DEXA 08-22-19 COLON 01-13-17 Patient presents for routine connie scratcher, no problems. Patient denies pelvic pain, discharge, [...] drug use Social alcohol use Work history [employer] Allergies Medication Demerol TABS Recorded By: Andrew [...] Oral Tablet (more content not included)... [facility] lymphocyte counton 07-23-2021 Lymphocytes Auto (Unsp spec) [#/Vol] 0.88 10*3/uL 0.83-4.51 [facility] Work Phone: Basophil percentageon 2021 Basophils/100 WBC (Bld) 0.4 % 0-1 [facility] Work Phone: Bilirubin [Mass/Vol] 1.60 mg/dL 0.20-1.00 [place] Work Phone: Comment on above: For patients on eltr ombopag therapy, use of Dimension [place] TBIL is not recommended. Chloride [Moles/Vol] 108 mmol/L 98-107 [place] Work Phone: Eosinophils/100 WBC (Bld) 2.0 % 0-5 [facility] Work Phone: Glucose [Mass/Vol] 273 mg/dL 74-106 [facility] Work Phone: Comment on above: Glucose result great er than or equal to 200 mg/dLsuggests DIABETES MELLITUS per A.D.A. criteria. Neutrophils (Bld) [#/Vol] 3.6 10*3/uL 2.0-7.7 [facility] Work Phone: Neutrophils/100 WBC (Bld) 72.8 % 47-70 [facility] Work Phone: Potassium [Moles/Vol] 4.1 mmol/L 3.5-5.1 [facility]: Protein [Mass/Vol] 6.8 g/dL 6.4-8.2 [facility] Work Phone: Sodium [Moles/Vol] 138 mmol/L 136-145 [facility] Work Phone: WBC (Bld) [#/Vol] 5.0 10*3/uL 4.4-11.0 [facility] Work Phone: Blood erythrocytes count (nu mber/volume)on 07-23-2021 RBC (Bld) [#/Vol] 4.25 10*6/uL 4.2-5.4 [facility] Work Phone: Blood hemoglobin measurement (mass/volume)on 07-23-2021 Hemoglobin (Bld) [Mass/Vol] 13.8 g/dL 12.0-15.0 [facility] Work Phone: [phone] Blood lymphocytes/100 leukoc yteson 07-23-2021 Lymphocytes/100 WBC (Bld) 17.6 % 19-41 [facility] Work Phone: Blood manual differential co mment interpretation (narrative result)on 07-23-2021 Manual differential comment Aditya (Bld) [Interp] SCANNED [facility] Work Phone: Comment on above: THROMBOCYTOPENIA NOT ED Blood monocytes/100 leukocyt eson 07-23-2021 Monocytes/100 WBC (Bld) 6.8 % 0-10 [facility] Work Phone: Blood platelet mean volumeon 07-23-2021 Platelet mean volume (Bld) [Entitic vol] 10.8 fL 6.2-12.0 [facility] Work Phone: Determination of erythrocyte mean corpuscular volume (MCV)on 07-23-2021 MCV (RBC) [Entitic vol] 94.4 fL 81-99 [facility] Work Phone: Hematocrit Auto (Bld) [Volum e fraction]on 07-23-2021 Hematocrit (Bld) [Volume fraction] 40.1 % 37-47 [facility] Work Phone: Laboratory - Chemistry and C hemistry - challengeon 07-23-2021 ALP [Catalytic activity/Vol] 97 U/L 45-117 [facility] Work Phone: ALT [Catalytic activity/Vol] 21 U/L 13-56 [facility] Work Phone: CO2 [Moles/Vol] 27.0 mmol/L 21.0-32.0 [facility] Work Phone: Globulin (S) [Mass/Vol] 4.0 g/dL 2.2-4.2 [facility] Work Phone: Urea nitrogen/Creatinine [Mass ratio] 15.4 mg/mg 10-20 [facility] Work Phone: Laboratory - Hematology and Cell countson 07-23-2021 Erythrocyte distribution width (RBC) [Entitic vol] 46.8 fL 35.1-43.9 [facility] Work Phone: Erythrocyte distribution width (RBC) [Ratio] 13.5 % 11.6-14.6 [facility] Work Phone: Immature granulocytes/100 WBC (Bld) 0.400 % 0.0-0.9 [facility] Work Phone: Comment on above: IG% - Immature Granu locytes (promyelocytes, myelocytes and metamyelocytes) > 1% indicates that a LEFT SHIFT is Present. MCH (RBC) [Entitic mass] 32.5 pg 27.0-32.0 [facility] Work Phone: Nucleated RBC/100 WBC (Bld) [Ratio] 0 % 0-5 [facility] Work Phone: MCHC Auto (RBC) [Mass/Vol]on 07-23-2021 MCHC (RBC) [Mass/Vol] 34.4 g/dL 32-36 [facility] Work Phone: No Panel Informationon 07-23 Estimated GFR (MDRD) Amer 58 mL/min >60 [facility] Work Phone: Comment on above: GFR Calc Estimated GFR (MDRD) Non-Af Amer 48 mL/min >60 [facility] Work Phone: Comment on above: Non- GFR Calc Urine Microalbumin/Creatini ne Ratio 17.8 mg/g CRE <30 [facility] Work Phone: Platelets bldon 07-23-2021 Platelets (Bld) [#/Vol] 56 10*3/uL 150-450 [facility] Work Phone: Serum or plasma albumin sera urement (mass/volume)on 07-23-2021 Albumin [Mass/Vol] 2.8 g/dL 3.2-5.0 [facility] Work Phone: Serum or plasma albumin/glob ulin mass ratioon 07-23-2021 Albumin/Globulin [Mass ratio] 0.7 {ratio} 0.9-2.4 [facility] Work Phone: Serum or plasma calcium sera urement (mass/volume)on 07-23-2021 Calcium [Mass/Vol] 8.9 mg/dL 8.5-10.1 [facility] Work Phone: Serum or plasma creatinine m easurement (mass/volume)on 07-23-2021 Creatinine [Mass/Vol] 1.23 mg/dL 0.55-1.02 [facility] Work Phone: Comment on above: The validity of the calculated GFR & GFRAA in patients over 70 years has not been determined. Clinical correlation is essential. Serum or plasma urea nitroge n measurement (mass/volume)on 07-23-2021 Urea nitrogen [Mass/Vol] 19 mg/dL 7-18 [facility] Work Phone: Thin prep Papanicolaou smear with manual screeningon 07-23-2021 Thin prep Papanicolaou smear with manual screening 23 U/L 15-37 [facility] Work Phone: Thin prep Papanicolaou smear with manual screening 3 5-15 [facility] Work Phone: Thin prep Papanicolaou smear with manual screening 28.3 mg/L NO RANGE EST. [facility] Work Phone: Urine creatinine measurement (mass/volume)on 07-23-2021 Creatinine (U) [Mass/Vol] 159.00 mg/dL NO RANGE EST. [facility] Work Phone: [facility] ENT Wage Conciliator Progress Noteon 07-02-2021 [facility] ENT Wage Conciliator Progress Note Patient: YARA BETH Age: 60 [...] earmolds or a cochlear implant. '' Normal [facility] FLOW CYTO PROFon 03-01-2021 CD10 MARKER 1 % [facility] Comment [facility]: Order Comment: Heidi s: M Performed By: #### L [id number] #### [facility] [address] [place] [address] CD11B MARKER 8 % [facility] Comment on above: Order Comment: Kevinu s: M Performed By: #### L .[id number] #### [facility] [address] [place] [address] CD19 % B CELL 9 % Normal [facility] Comment on above: Order Comment: Kevinu s: M Performed By: #### L .[id number] #### [facility] [address] [place] [address] CD2 MARKER 86 % Normal [facility] Comment on above: Order Comment: Kevinu s: M Performed By: #### L .[id number] #### [facility] [address] [place] [address] CD20 MARKER 7 % Normal [facility] Comment on above: Order Comment: Kevinu s: M Performed By: #### L .[id number] #### [facility] [address] [place] [address] CD23 MARKER 3 % [facility] Comment [facility]: Order Comment: Kevinu s: M Performed By: #### L .[id number] #### [facility] [address] [place] [address] CD3 % T CELLS 71 % Normal [facility] Comment on above: Order Comment: Kevinu s: M Performed By: #### L [id number] #### [facility] [address] [place] [address] CD30 MARKER 1 % Normal [facility] Comment on above: Order Comment: Heidi s: M Performed By: #### L [id number] #### [facility] [address] [place] [address] CD38 MARKER 21 % [facility] Comment on above: Order Comment: Kevinu s: M Performed By: #### L .[id number] #### [facility] [address] [place] [address] CD4 MARKER 60 % [facility] Comment on above: Order Comment: Campu s: M Performed By: #### L .[id number] #### [facility] [address] [place] [address] CD43 MARKER 91 % Normal [facility] Comment on above: Order Comment: Campu s: M Performed By: #### L .[id number] #### [facility] [address] [place] [address] CD45 MARKER 100 % Normal [facility] Comment on above: Order Comment: Campu s: M Performed By: #### L .[id number] #### [facility] [address] [place] [address] CD5 MARKER 74 % Normal [facility] Comment on above: Order Comment: Campu s: M Performed By: #### L .[id number] #### [facility] [address] [place] [address] CD56 MARKER 19 % [facility] Comment on above: Order Comment: Campu s: M Performed By: #### L .[id number] #### [facility] [address] [place] [address] CD57 MARKER 7 % Normal [facility] Comment on above: Order Comment: Campu s: M Performed By: #### L .[id number] #### [facility] [address] [place] [address] CD7 MARKER 82 % Normal [facility] Comment on above: Order Comment: Campu s: M Performed By: #### L [id number] #### [facility] [place] [address] CD8 MARKER 19 % Normal [facility] Comment on above: Order Comment: Campu s: M Performed By: #### L [id number] #### [facility] [address] [place] [address] FDA COMMENT SEE COMMENT Normal [facility] Comment on above: Order Comment: Campu s: M Result Comment: THIS TEST WAS DEVELOPED AND ITS PERFORMANCE CHARACTERISTICS DETERMINED BY [facility]. IT HAS NOT BEEN CLEARED BY THE US FOOD AND DRUG ADMINISTRATION (FDA). THE FDA HAS DETERMINED THAT SUCH CLEARANCE OR APPROVAL IS NOT NECESSARY. FOR THE COMPLETE INTENDED USE STATEMENT, AND ANY ADDITIONAL INFORMATION, PLEASE SEE THE FULL FILED REPORT Performed By: #### L [id number] #### [facility] [address] [place] [address] FLOW COMMENT Normal [facility] Comment on above: Order Comment: Campu s: M Result Comment: COEX PRESSION CD19/CD10 0.0% CD19/CD5 0.3% CD19/CD5/CD38 % CD19/CD5/CD23 0.0% Performed By: #### L [id number] #### [facility] [address] [place] [address] FMC7 MARKER 1 % Normal [facility] Comment on above: Order Comment: Campu s: M Performed By: #### L [id number] #### [facility] [address] [place], [place] [id number] HLA-DR MARKER 28 % Normal [facility] Comment on above: Order Comment: Campu s: M Performed By: #### L [id number] #### [facility] [address] [place] [address] KAPPA MARKER 5 % Normal [facility] Comment on above: Order Comment: Campu s: M Performed By: #### L [id number] #### [facility] [place] [address] LAMBDA MARKER 4 % Normal [facility] Comment on above: Order Comment: Heidi Katz Performed By: #### L [id number] #### [facility] [address] [place] [address] PATHOLOGY INTER Normal [facility] Comment on above: Order Comment: Heidi s: Gianna Result Comment: SPEC IMEN: RIGHT NECK VIABILITY: [...] OF CD45 NEGATIVE EVENTS/DEBRIS. CLARENCE BLOOM D.O. 02/28/2021--[facility] [id number] Performed By: #### L [id number] #### [facility] [address] [place] [address] [facility] Anion gap [Moles/Vol] 3 mmol/L Low 5-16 [facility] Comment on above: Order Comment: Heidi Katz Performed By: #### L 500.56344, L500.78930, L500.88373 #### [facility] [address] [place] [address] Calcium [Mass/Vol] 8.7 mg/dL Normal 8.5-10.5 [facility] Comment on above: Order Comment: Campu s: M Result Comment: NOTE NEW NORMAL RANGE DUE TO REAGENT CHANGE Performed By: #### L 500.63133, L500.64437, L500.13956 #### [facility] [address] [place], [place] [address] Chloride [Moles/Vol] 110 mmol/L High 98-107 [facility] Comment on above: Order Comment: Campu s: M Performed By: #### L 500.86486, L500.26770, L500.65564 #### [facility] [address] [place] [address] CO2 [Moles/Vol] 28.0 mmol/L Normal 21-32 [facility] Comment on above: Order Comment: Campu s: M Performed By: #### L 500.43505, L500.73552, L500.59134 #### [facility] [address] [place] [address] Creatinine [Mass/Vol] 1.21 mg/dL High 0.510- 0.95 0 [facility] Comment on above: Order Comment: Campu s: M Result Comment: Cori ents receiving either N-Acetylcysteine (NAC) or Metamizole prior to venipuncture, may have falsely depressed results. Performed By: #### L 500.47062, L500.98895, L500.93543 #### [facility] [address] [place], [place] [address] Glucose [Mass/Vol] 130 mg/dL High 70-100 [facility] Comment on above: Order Comment: Campu s: M Result Comment: 70-1 00- Normal Fasting; 100-125 Impaired Fasting; greater than 126 on more than one result- Diabetes. ADA guidelines. Results may be falsely elevated after the administration of Sulfapyridine. Results may be falsely depressed after the administration of Sulfasalazine. Performed By: #### L 500.27509, L500.16735, L500.40422 #### [facility] [address] [place] [address] Potassium [Moles/Vol] 4.0 mmol/L Normal 3.5-5.1 [facility] Comment on above: Order Comment: Campu s: M Result Comment: Slig ht Hemolysis, Result may be affected. Performed By: #### L 500.26702, L500.09843, L500.94824 #### [facility] [address] [place] [address] Sodium [Moles/Vol] 139 mmol/L Normal 136-145 [facility] Comment on above: Order Comment: Campu s: M Performed By: #### L 500.67531, L500.37248, L500.68160 #### [facility] [address] [place], [place] [address] Urea nitrogen [Mass/Vol] 9 mg/dL Normal 7-26 [facility] Comment on above: Order Comment: Campu s: M Performed By: #### L 500.57422, L500.14407, L500.32917 #### [facility] [address] [place] [address] Urea nitrogen/Creatinine [Mass ratio] 7 mg/mg Low 15-24 [facility] Comment on above: Order Comment: Campu s: M Performed By: #### L 500.52749, L500.94899, L500.00416 #### [facility] [address] [place] [address] CBC W/DIFFon 02-27-2021 BASO ABS 0.00 K/CU MM Normal 0-0.2 [facility] Comment on above: Order Comment: Campu s: M Performed By: #### L [id number] #### [facility] [address] [place] [address] Basophils/100 WBC (Bld) 0.5 % Normal 0-2 [facility] Comment on above: Order Comment: Campu s: M Performed By: #### L [id number] #### [facility] [address] [place] [address] EOS ABS 0.20 K/CU MM Normal 0-0.5 [facility] Comment on above: Order Comment: Campu s: M Performed By: #### L [id number] #### [facility] [address] [place] [address] Eosinophils/100 WBC (Bld) 4.2 % Normal 0-5 [facility] Comment on above: Order Comment: Campu s: M Performed By: #### L [id number] #### [facility] [address] [place] [address] IMMATR GRAN ABS 0.00 K/CU MM Normal Less than 2 [facility] Comment on above: Order Comment: Campu s: M Performed By: #### L [id number] #### [facility] [address] [place] [address] IMMATURE GRAN % 0.7 % Normal Less than 2 [facility] Comment on above: Order Comment: Campu s: M Performed By: #### L 200.03703 #### [facility] [address] [place] [address] LYMPH ABS 0.90 K/CU MM Normal 0.9-4.4 [facility] Comment on above: Order Comment: Campu s: M Performed By: #### L 200.18685 #### [facility] [address] [place] [address] Lymphocytes/100 WBC (Bld) 21.2 % Normal 20-40 [facility] Comment on above: Order Comment: Campu s: M Performed By: #### L 200.24706 #### [facility] [address] [place] [address] MONO ABS 0.30 K/CU MM Normal 0.1-1.1 [facility] Comment on above: Order Comment: Campu s: M Performed By: #### L 200.36299 #### [facility] [address] [place] [address] Monocytes/100 WBC (Bld) 6.5 % Normal 2-10 [facility] Comment on above: Order Comment: Campu s: M Performed By: #### L 200.41629 #### [facility] [address] [place] [address] NEUTROPHIL ABS 2.90 K/CU MM Normal 2.0-8.3 [facility] Comment on above: Order Comment: Campu s: M Performed By: #### L 200.57088 #### [facility] [address] [place] [address] Neutrophils/100 WBC (Bld) 66.9 % Normal 45-75 [facility] Comment on above: Order Comment: Campu s: M Performed By: #### L 200.61365 #### [facility] [address] [place] [address] PLT EST MOD DECREASED Normal [facility] Comment on above: Order Comment: Campu s: M Performed By: #### L 200.56022 #### [facility] [address] [place] [address] POLY 1+ Normal [facility] Comment on above: Order Comment: Campu s: M Performed By: #### L 200.96575 #### [facility] [address] [place], [place] [id number] Erythrocyte distribution width (RBC) [Ratio] 13.7 % Normal 11-14.5 [facility] Comment on above: Order Comment: Campu s: M Performed By: #### L 200.71137 #### [facility] [address] [place] [address] Hematocrit (Bld) [Volume fraction] 33.1 % Low 35.0-47.0 [facility] Comment on above: Order Comment: Campu s: M Performed By: #### L 200.87815 #### [facility] [address] [place] [address] Hemoglobin (Bld) [Mass/Vol] 11.2 g/dL Low 11.5-15.5 [facility] Comment on above: Order Comment: Campu s: M Performed By: #### L 200.65526 #### [facility] [address] [place] [address] MCHC (RBC) [Mass/Vol] 33.8 g/dL Normal 32.0-36.0 [facility] Comment on above: Order Comment: Campu s: M Performed By: #### L 200.16076 #### [facility] [address] [place] [address] MCV (RBC) [Entitic vol] 95.9 fL Normal 80.0-99.0 [facility] Comment on above: Order Comment: Campu s: M Performed By: #### L 200.07717 #### [facility] [address] [place] [address] Nucleated RBC/100 WBC (Bld) [Ratio] 0.0 % Normal Less than 1 [facility] Comment on above: Order Comment: Campu s: M Performed By: #### L 200.56494 #### [facility] [address] [place] [address] Platelet mean volume (Bld) [Entitic vol] 10.2 fL Normal 9.4-12.4 [facility] Comment on above: Order Comment: Campu s: M Performed By: #### L 200.04980 #### [facility] [address] [place] [address] PLT 52 K/CU MM Low 150-450 [facility] Comment on above: Order Comment: Campu s: M Result Comment: Conf irmed by slide estimate.Repeated and verified. Performed By: #### L 200.36570 #### [facility] [address] [place] [address] RBC 3.45 M/CU MM Low 3.90-5.30 [facility] Comment on above: Order Comment: Campu s: M Performed By: #### L 200.77035 #### [facility] [address] [place] [address] WBC 4.3 K/CUMM Low 4.5-11.0 [facility] Comment on above: Order Comment: Campu s: M Performed By: #### L 200.85040 #### [facility] [address] [place] [address] DISCH.SUMon 02-27-[address] Patient Name: YARA BETH [address] [place] [address] Date of : [address] [place] [address] Unit Number: [id number] Discharge Summary Patient Status: DIS IN Attending Doctor: Melanie Hooker MD Service Date: 02/27/21 1513 Discharge Summary Admit Date Admission Date Time: 02/18/21 1524 Anticipated Discharge Date 02/27/21 Final Dx/Problem List 1. Neck mass On Thu 2:36p Feb 26, 2021 MELANIE HOOKER wrote Right neck mass/abscess Microfollicular Streptococcus/Staph epidermidis [...] I discussed the postbiopsy events with physician blood bank assistant Zaida and Dr. Saleh from ENT. I [...] and rep (more content not included)... Normal [facility] GFR ESTon 02-27-2021 IF AMER 55 [facility] Comment on above: Order Comment: Heidi s: M Performed By: #### L 500.83233, L500.94149, L500.29415 #### [facility] [address] [place] [address] IF non-AFR AMER 46 [facility] Comment on above: Order Comment: Heidi s: M Performed By: #### L 500.32296, L500.17022, L500.64949 #### [facility] [address] [place] [address] GLUCOSE METERon 02-27-2021 Glucose [Mass/Vol] 134 mg/dL High 85-125 [facility] Glucose [Mass/Vol] 136 mg/dL High 85-125 [facility] Glucose [Mass/Vol] 112 mg/dL Normal 85-125 [facility] HGB A1C GLYCOHBon 02-27-2021 HbA1c (Bld) [Mass fraction] 8.8 % High 4.3-6.0 [facility] Comment on above: Order Comment: Kevinu s: M Performed By: #### L 550.24739 #### [facility] [address] [place] [address] MAGNESIUMon 02-27-2021 Magnesium [Mass/Vol] 1.4 mg/dL Low 1.6-2.6 [facility] Comment on above: Order Comment: Heidi s: M Performed By: #### L 500.71880, L500.14923, L500.13925 #### [facility] [address] [place] [address] PROG.ENTon 02-27-2021 PROG.ENT [facility] Patient Name: YARA BETH [facility] Date of : [address] [place], [place] [address] Unit Number: [id number] Progress Note-ENT Patient Status: ADM IN Attending Doctor: Skyler Fregoso DO Service Date: 02/27/21 1012 Progress Note - ENT Subjective Subjective: (2 ROS minimum) The patient states she is feeling better today with less pain in the neck Objective Nursing Vitals Vital Signs (Last) Result Date Time Pulse Ox 91 02/27 07 B/P 122/50 02/27 07 Temp 98.0 02/27 [...] no purulence. Diagnostic Data Lab 24hr (CBC/BMP [facility]) 02/27/21 0746: Whole Bld Glucose 112 02/27/21 [...] 0.0, Platelet Estimate MOD DECREASED, Polychromasia 1+ 02/26/21 2054: Whole Bld Glucose 133 H 02/26/21 1752: [...] Wellington Nam MD Verified/Reviewed by 02/27/21 1015 [facility] Progress Note-ENT [facility] BMPon 02-26-2021 Anion gap [Moles/Vol] 3 mmol/L Low 5-16 [facility] Comment on above: Order Comment: Campu s: M Performed By: #### M 050.44299 #### [facility] [address] [place] [address] Calcium [Mass/Vol] 9.1 mg/dL Normal 8.5-10.5 [facility] Comment on above: Order Comment: Campu s: M Result Comment: NOTE NEW NORMAL RANGE DUE TO REAGENT CHANGE Performed By: #### M 050.77110 #### [facility] [address] [place] [address] Chloride [Moles/Vol] 108 mmol/L High 98-107 [facility] Comment on above: Order Comment: Campu s: M Performed By: #### M 050.52464 #### [facility] [address] [place] [address] CO2 [Moles/Vol] 31.0 mmol/L Normal 21-32 [facility] Comment on above: Order Comment: Campu s: M Performed By: #### M 050.05622 #### [facility] [address] [place] [address] Creatinine [Mass/Vol] 1.19 mg/dL High 0.510- 0.95 0 [facility] Comment on above: Order Comment: Campu s: M Result Comment: Cori ents receiving either N-Acetylcysteine (NAC) or Metamizole prior to venipuncture, may have falsely depressed results. Performed By: #### M 050.79246 #### [facility] [address] [place] [address] Glucose [Mass/Vol] 167 mg/dL High 70-100 [facility] Comment on above: Order Comment: Campu s: M Result Comment: 70-1 00- Normal Fasting; 100-125 Impaired Fasting; greater than 126 on more than one result- Diabetes. ADA guidelines. Results may be falsely elevated after the administration of Sulfapyridine. Results may be falsely depressed after the administration of Sulfasalazine. Performed By: #### M 050.40003 #### [facility] [address] [place] [address] Potassium [Moles/Vol] 4.2 mmol/L Normal 3.5-5.1 [facility] Comment on above: Order Comment: Campu s: M Performed By: #### M 050.16615 #### [facility] [address] [place] [address] Sodium [Moles/Vol] 142 mmol/L Normal 136-145 [facility] Comment on above: Order Comment: Campu s: M Performed By: #### M 050.44154 #### [facility] [place] [address] Urea nitrogen [Mass/Vol] 9 mg/dL Normal 7-26 [facility] Comment on above: Order Comment: Campu s: M Performed By: #### M 050.11910 #### [facility] [address] [place] [address] Urea nitrogen/Creatinine [Mass ratio] 8 mg/mg Low 15-24 [facility] Comment on above: Order Comment: Campu s: M Performed By: #### M 050.73453 #### [facility] [place] [address] GFR ESTon 02-26-2021 IF AMER 56 [facility] Comment on above: Order Comment: Campu s: M Performed By: #### M 050.03303 #### [facility] [place] [address] IF non-AFR AMER 47 Normal [facility] Comment on above: Order Comment: Campu s: M Performed By: #### M 050.32102 #### [facility] [address] [place] [address] GLUCOSE METERon 09-07-2021 Glucose [Mass/Vol] 133 mg/dL High 85-125 [facility] Glucose [Mass/Vol] 144 mg/dL High 85-125 [facility] Glucose [Mass/Vol] 146 mg/dL High 85-125 [facility] Glucose [Mass/Vol] 158 mg/dL High 85-125 [facility] Glucose [Mass/Vol] 181 mg/dL High 85-125 [facility] MAGNESIUMon 02-26-2021 Magnesium [Mass/Vol] 1.6 mg/dL Normal 1.6-2.6 [facility] Comment on above: Order Comment: Heidi s: M Performed By: #### M 050.42304 #### [facility] [address] [place] [address] PROG [facility] 02-26-2021 PROG [facility] Patient Name: YARA BETH [address] [facility] Date of : [address] [place], [place] [address] Unit Number: [id number] Progress Note-Hospitalist Patient Status: ADM IN Attending [...] B/P 140/77 02/26 0715 Temp 97.5 02/26 0715 Pulse 81 02/26 0715 Resp 20 02/26 0715 O2 Delivery NASAL CANNULA 02/23 0046 O2 Flow Rate 2 02/22 1826 B/P Mean 83 / 1500 Physical Exam: General: Patient is alert [...] cervical lymphadenopathy. Diagnostic Data: Lab 24hr (CBC/BMP [facility]) 02/26/21 1233: Whole Bld Glucose 146 H [...] may exist. eSign Date and Time Melanie Hooker MD Verified/Reviewed by 02/26/21 1436 [facility] Progress Note-Hospitalist [facility] PROG.ENTon 02-26-2021 PROG.ENT [facility] Patient Name: YARA BETH A [address] Date of : [address] [place] [address] Unit Number: [id number] Progress Note-ENT Patient Status: ADM IN Attending [...] erythema present. Diagnostic Data Lab 24hr (CBC/BMP [facility]) 02/26/21 0813: Whole Bld Glucose [...] Verified/Reviewed by 02/26/21 1104 Fabien Saleh MD [facility] Progress Note-ENT [facility] PROG.NOTEon 02-26-2021 PROG.NOTE [facility] Patient Name: YARA BETH A [address] Date of : [address] [place] [address] Unit Number: [id number] Progress Note-Physician Patient Status: ADM IN Attending [...] No Rash Diagnostic Data: Lab 24hr (CBC/BMP [facility]) 02/26/21 0813: Whole Bld Glucose [...] De Jesus MD Verified/Reviewed by 02/26/21 1302 Normal [facility] SURG TISSUEon 02-26-2021 SURG TISSUE GRAM STAIN [...] S MEROPENEM >8 R DAPTOMYCIN <1 S Normal [facility] Comment on above: Order Comment: Campu s: M: SPEC 4 AEROBIC SWAB RIGHT NECK MASS Performed By: #### M 100.13571 ####[facility] [id number] [place] [address]Yr# [phone] ANAER CULTUREon 02-25-2021 ANAER CULTURE RESULT NO GROWTH OF ANAEROBES Normal [facility] Comment on above: Order Comment: Campu s: M Performed By: #### L 500.05283, L500.26394, L500.73796 #### [facility] [address] [place] [address] # [phone] BMPon 02-25-2021 Anion gap [Moles/Vol] 3 mmol/L Low 5-16 [facility] Comment on above: Order Comment: Campu s: M Performed By: #### L 500.07062, L500.11066, L500.71885 ####[facility] [id number] [place], [place] [address]Lp# [phone] Calcium [Mass/Vol] 8.7 mg/dL Normal 8.5-10.5 [facility] Comment on above: Order Comment: Campu s: M Result Comment: NOTE NEW NORMAL RANGE DUE TO REAGENT CHANGE Performed By: #### L 500.38303, L500.52396, L500.49630 ####[facility] [id number] [place], [place] [address]Sz# [phone] Chloride [Moles/Vol] 109 mmol/L High 98-107 [facility] Comment on above: Order Comment: Campu s: M Performed By: #### L 500.85378, L500.13661, L500.40937 ####[facility] [id number] [place], [place] [address]Sx# [phone] CO2 [Moles/Vol] 30.0 mmol/L Normal 21-32 [facility] Comment on above: Order Comment: Campu s: M Performed By: #### L 500.55473, L500.04865, L500.42249 ####[facility] [id number] [place], [place] [address]Jy# [phone] Creatinine [Mass/Vol] 1.17 mg/dL High 0.510- 0.95 0 [facility] Comment on above: Order Comment: Campu s: M Result Comment: Cori ents receiving either N-Acetylcysteine (NAC) or Metamizole prior to venipuncture, may have falsely depressed results. Performed By: #### L 500.87993, L500.50176, L500.02585 ####[facility] [id number] [place], [place] [address]Xo# [phone] Glucose [Mass/Vol] 172 mg/dL High 70-100 [facility] Comment on above: Order Comment: Campu s: M Result Comment: 70-1 00- Normal Fasting; 100-125 Impaired Fasting; greater than 126 on more than one result- Diabetes. ADA guidelines. Results may be falsely elevated after the administration of Sulfapyridine. Results may be falsely depressed after the administration of Sulfasalazine. Performed By: #### L 500.47931, L500.36822, L500.19335 ####[facility] [id number] [place], [place] [address]Ly# [phone] Potassium [Moles/Vol] 4.0 mmol/L Normal 3.5-5.1 [facility] Comment on above: Order Comment: Campu s: M Result Comment: Slig ht Hemolysis, Result may be affected. Performed By: #### L 500.43595, L500.96127, L500.24634 ####[facility] [id number] [place], [place] [address]Fz# [phone] Sodium [Moles/Vol] 142 mmol/L Normal 136-145 [facility] Comment on above: Order Comment: Campu s: M Performed By: #### L 500.83163, L500.94196, L500.15982 ####[facility] [id number] [place], [place] [address]Lf# [phone] Urea nitrogen [Mass/Vol] 9 mg/dL Normal 7-26 [facility] Comment on above: Order Comment: Campu s: M Performed By: #### L 500.76246, L500.27349, L500.30180 ####[facility] [id number] [place], [place] [address]Ug# [phone] Urea nitrogen/Creatinine [Mass ratio] 8 mg/mg Low 15-24 [facility] Comment on above: Order Comment: Campu s: M Performed By: #### L 500.28632, L500.67874, L500.42377 ####[facility] [id number] [place], [place] [address]Tz# [phone] GFR ESTon 02-25-2021 IF AMER 57 [facility] Comment on above: Order Comment: Campu s: M Performed By: #### L 500.05174, L500.60621, L500.38980 ####[facility] [id number] [place], [place] [address]Xr# [phone] IF non-AFR AMER 48 [facility] Comment on above: Order Comment: Campu s: M Performed By: #### L 500.52403, L500.30734, L500.33199 ####[facility] [id number] [place] [address]Or# [phone] GLUCOSE METERon 02-25-2021 Glucose [Mass/Vol] 155 mg/dL High 85-125 [facility] Glucose [Mass/Vol] 152 mg/dL High 85-125 [facility] Glucose [Mass/Vol] 158 mg/dL High 85-125 [facility] MAGNESIUMon 02-25-2021 Magnesium [Mass/Vol] 1.4 mg/dL Low 1.6-2.6 [facility] Comment on above: Order Comment: Kevinu s: M Performed By: #### L 500.57585, L500.08277, L500.27860 ####[facility] [id number] [place], [place] [address]Zz# [phone] PROG IMS 02-25-2021 PROG [facility] Patient Name: YARA BETH [address] Date of : [address] [place] [address] Unit Number: [id number] Progress Note-Hospitalist Patient Status: ADM IN Attending Doctor: Skyler Fregoso DO Service Date: 02/25/21 1832 Chief Complaint Chief Complaint Neck mass. Subjective [...] Rate 2 02/22 1826 B/P Mean 83 /02 1500 General Appearance Sitting up in bed, [...] no diarrhea Diagnostic Data: Lab 24hr (CBC/BMP [facility]) 02/25/21 1700: Whole Bld Glucose 155 H 02/25/21 1200: Whole Bld Glucose 152 H 02/25/21 0749: Whole Bld Glucose 158 H 02/25/21 0644: [Embedded Image Not Available] Anion Gap LESS THAN 3 L, Est GFR ( Amer) 57, Est GFR (Non-Af Amer) 48, BUN/ Creatinine Ratio 8 L, Glucose 172 H, Total Calcium 8.7, Magnesium 1.4 L 02/24/21 2111: Whole Bld Glucose 188 H Assessment and [...] I discussed the postbiopsy events with physician blood bank assistant Zaida and Dr. Saleh from ENT. I [...] is being supplem (more content not included)... Normal [facility] Progress Note-Hospitalist Normal [facility] PROG.ENTon 02-25-2021 PROG.ENT [facility] Patient Name: YARA BETH A [address] Date of : [address] [place] [address] Unit Number: [id number] Progress Note-ENT Patient Status: ADM IN Attending [...] amount of purulent discharge coming through the Dariusz-Herman drain into the bulb as well as [...] Saleh MD Verified/Reviewed by 02/25/21 1116 Normal [facility] Progress Note-ENT Normal [facility] CDIF PCRon 02-24-2021 CDIF PCR Positive High NEGATIVE [facility] Comment on above: Order Comment: Heidi s: Gianna Result Comment: A po sitive C.Difficile molecular test does not differentiate between C.Difficile disease and carriers of C.Difficile. Use clinical judgement and reflex testing to determine treatment options/disease state. Performed By: #### L 200.06564 #### [facility] [place] [id number] CDIFF AG/TOXINon 02-24-2021 CDIFF AG/TOXIN Negative Normal NEGATIVE [facility] Comment on above: Order Comment: Heidi s: Gianna Result Comment: Posi tive for toxigenic C.Difficile gene but active toxin production NOT detected. May be a colonized carrier, or toxin level is below the limit of detection. CRITICAL VALUE(S) VERIFIED AND CALLED TO AND READ BACK BY MALLIKA ECHEVERRIA AT 1150 02/24/21 BY ANGIE MASON Performed By: #### L 200.39362 #### [facility] [address] [place] [address] GLUCOSE METERon 02-24-2021 Glucose [Mass/Vol] 188 mg/dL High 85-125 [facility] Glucose [Mass/Vol] 285 mg/dL High 85-125 [facility] Gl[facility] [Mass/Vol] 198 mg/dL High 85-125 [facility] Glucose [Mass/Vol] 139 mg/dL High 85-125 [facility] PROG [facility] 02-24-2021 PROG [facility] Patient Name: YARA BETH A [address] Date of : [address] [place] [address] Unit Number: [id number] Progress Note-Hospitalist Patient Status: ADM IN Attending Doctor: Skyler Fregoso DO Service Date: 02/24/21 173 Chief Complaint Chief Complaint Neck mass. Subjective [...] no diarrhea Diagnostic Data: Lab 24hr (CBC/BMP [facility]) 02/24/21 1625: Whole Bld Glucose 285 H [...] I discussed the postbiopsy events with physician blood bank assistant Zaida and Dr. Saleh from ENT. I [...] I am addre (more content not included)... [facility] Progress Note-Hospitalist [facility] PROG.ENTon 02-24-2021 PROG.ENT [facility] Patient Name: YARA BETH A [address] Date of : [address] [place] [address] Unit Number: [id number] Progress Note-ENT Patient Status: ADM IN Attending [...] 0846 Temp 97.8 02/24 0846 Pulse 92 / 0846 Resp 20 02/24 0846 O2 Delivery NASAL CANNULA 02/23 0046 O2 Flow Rate 2 02/22 1826 B/P Mean 83 /02 1500 Physical Exam There is minimal purulent [...] Fabien Saleh MD Verified/Reviewed by 02/24/21 1428 Normal [facility] Progress Note-ENT Normal [facility] SURG TISSUEon 02-24-2021 SURG TISSUE GRAM STAIN MANY WBC'S MANY GRAM POSITIVE COCCI FEW GRAM POSITIVE BACILLUS ORGANISM 1: MICROAEROPHILIC STREPTOCOCCUS QUANTITATION MODERATE ID TO FOLLOW NOT VIABLE FOR SENSITIVITY ORGANISM 2: DIPHTHEROIDS QUANTITATION FEW ID TO FOLLOW NOT VIABLE FOR SENSITIVITY Normal [facility] Comment on above: Order Comment: Campu s: M Performed By: #### L 500.12717, L500.73915, L500.39698 #### [facility] [place] [address] BMPon 02-23-2021 Anion gap [Moles/Vol] 7 mmol/L Normal 5-16 [facility] Comment on above: Order Comment: Campu s: M Performed By: #### L 500.15304, L500.90002, L500.33242 #### [facility] [place] [address] Calcium [Mass/Vol] 8.3 mg/dL Low 8.5-10.5 [facility] Comment on above: Order Comment: Campu s: M Result Comment: NOTE NEW NORMAL RANGE DUE TO REAGENT CHANGE Performed By: #### L 500.57082, L500.07095, L500.22304 #### [facility] [place] [address] Chloride [Moles/Vol] 105 mmol/L Normal 98-107 [facility] Comment on above: Order Comment: Campu s: M Performed By: #### L 500.79011, L500.01925, L500.89505 #### [facility] [place] [address] CO2 [Moles/Vol] 29.0 mmol/L Normal 21-32 [facility] Comment on above: Order Comment: Kevinu s: M Performed By: #### L 500.92959, L500.19152, L500.92472 #### [facility] [address] [place] [address] Creatinine [Mass/Vol] 1.30 mg/dL High 0.510- 0.95 0 [facility] Comment on above: Order Comment: Campu s: M Result Comment: Cori ents receiving either N-Acetylcysteine (NAC) or Metamizole prior to venipuncture, may have falsely depressed results. Performed By: #### L 500.84096, L500.08188, L500.76564 #### [facility] [address] [place] [address] Glucose [Mass/Vol] 135 mg/dL High 70-100 [facility] Comment on above: Order Comment: Kevinu s: M Result Comment: 70-1 00- Normal Fasting; 100-125 Impaired Fasting; greater than 126 on more than one result- Diabetes. ADA guidelines. Results may be falsely elevated after the administration of Sulfapyridine. Results may be falsely depressed after the administration of Sulfasalazine. Performed By: #### L 500.38020, L500.28038, L500.80228 #### [facility] [address] [place] [address] Potassium [Moles/Vol] 4.0 mmol/L Normal 3.5-5.1 [facility] Comment on above: Order Comment: Campu s: M Result Comment: Slig ht Hemolysis, Result may be affected. Performed By: #### L 500.30844, L500.14525, L500.68446 #### [facility] [address] [place], [place] [address] Sodium [Moles/Vol] 141 mmol/L Normal 136-145 [facility] Comment on above: Order Comment: Kevinu s: M Performed By: #### L 500.56695, L500.29569, L500.33940 #### [facility] [address] [place], [place] [address] Urea nitrogen [Mass/Vol] 14 mg/dL Normal 7- [facility] Comment on above: Order Comment: Campu s: M Performed By: #### L 500.94671, L500.89828, L500.16501 #### [facility] [address] [place], [place] [address] Urea nitrogen/Creatinine [Mass ratio] 11 mg/mg Low 15-24 [facility] Comment on above: Order Comment: Campu s: M Performed By: #### L 500.97652, L500.37366, L500.01294 #### [facility] [address] [place] [address] CBC W/DIFFon 02-23-2021 ATYP LYMPH % 0.0 % Normal [facility] Comment on above: Order Comment: Campu s: M Performed By: #### L 550.13406 #### [facility] [address] [place] [address] BAND ABS 0.37 K/CU MM Normal [facility] Comment on above: Order Comment: Campu s: M Performed By: #### L 550.77575 #### [facility] [address] [place] [address] Band form neutrophils/100 WBC (Bld) 5.0 % Normal 0-7 [facility] Comment on above: Order Comment: Campu s: M Performed By: #### L 550.61636 #### [facility] [address] [place] [address] Basophils/100 WBC (Bld) 0.0 % Normal 0-2 [facility] Comment on above: Order Comment: Campu s: M Performed By: #### L 550.62405 #### [facility] [address] [place], [place] [address] BLAST % 0.0 % Normal 0 [facility] Comment on above: Order Comment: Campu s: M Performed By: #### L 550.31648 #### [facility] [address] [place], [place] [address] EOS ABS 0.07 K/CU MM Normal 0-0.5 [facility] Comment on above: Order Comment: Campu s: M Performed By: #### L 550.80418 #### [facility] [address] [place] [address] Eosinophils/100 WBC (Bld) 1.0 % Normal 0-5 [facility] Comment on above: Order Comment: Campu s: M Performed By: #### L 550.11140 #### [facility] [address] [place] [address] Erythrocyte distribution width (RBC) [Ratio] 13.1 % Normal 11-14.5 [facility] Comment on above: Order Comment: Campu s: M Performed By: #### L 550.86526 #### [facility] [address] [place] [address] Hematocrit (Bld) [Volume fraction] 34.5 % Low 35.0-47.0 [facility] Comment on above: Order Comment: Campu s: M Performed By: #### L 550.25218 #### [facility] [address] [place] [address] Hemoglobin (Bld) [Mass/Vol] 11.5 g/dL Normal 11.5-15.5 [facility] Comment on above: Order Comment: Campu s: M Performed By: #### L 550.42785 #### [facility] [address] [place], [place] [address] LYMPH ABS 1.18 K/CU MM Normal 0.9-4.4 [facility] Comment on above: Order Comment: Campu s: M Performed By: #### L 550.08881 #### [facility] [address] [place], [place] [address] Lymphocytes/100 WBC (Bld) 16.0 % Low 20-40 [facility] Comment on above: Order Comment: Campu s: M Performed By: #### L 550.88605 #### [facility] [address] [place], [place] [address] MCHC (RBC) [Mass/Vol] 33.3 g/dL Normal 32.0-36.0 [facility] Comment on above: Order Comment: Campu s: M Performed By: #### L 550.87739 #### [facility] [address] [place] [address] MCV (RBC) [Entitic vol] 95.6 fL Normal 80.0-99.0 [facility] Comment on above: Order Comment: Campu s: M Performed By: #### L 550.41964 #### [facility] [address] [place] [address] META % 0.0 % Normal [facility] Comment on above: Order Comment: Campu s: M Performed By: #### L 550.67180 #### [facility] [address] [place] [address] MONO ABS 0.37 K/CU MM Normal 0.1-1.1 [facility] Comment on above: Order Comment: Campu s: M Performed By: #### L 550.41492 #### [facility] [address] [place], [place] [address] Monocytes/100 WBC (Bld) 5.0 % Normal 2-10 [facility] Comment on above: Order Comment: Campu s: M Performed By: #### L 550.60823 #### [facility] [address] [place], [place] [address] MYELOCYTE % 0.0 % Normal [facility] Comment on above: Order Comment: Campu s: M Performed By: #### L 550.10275 #### [facility] [address] [place] [address] NC/NC NORMOCYTIC Normal [facility] Comment on above: Order Comment: Campu s: M Performed By: #### L 550.44057 #### [facility] [address] [place] [address] NEUTROPHIL ABS 5.40 K/CU MM Normal 2.0-8.3 [facility] Comment on above: Order Comment: Campu s: M Performed By: #### L 550.21200 #### [facility] [address] [place] [address] Neutrophils/100 WBC (Bld) 73.0 % Normal 45-75 [facility] Comment on above: Order Comment: Campu s: M Performed By: #### L 550.40509 #### [facility] [address] [place] [address] Nucleated RBC/100 WBC (Bld) [Ratio] 0.0 % Normal Less than 1 [facility] Comment on above: Order Comment: Campu s: M Performed By: #### L 550.68146 #### [facility] [address] [place] [address] OTHER % 0 % Normal [facility] Comment on above: Order Comment: Campu s: M Performed By: #### L 550.94580 #### [facility] [address] [place], [place] [address] Platelet mean volume (Bld) [Entitic vol] 10.3 fL Normal 9.4-12.4 [facility] Comment on above: Order Comment: Campu s: M Performed By: #### L 550.79720 #### [facility] [address] [place], [place] [address] PLT 60 K/CU MM Low 150-450 [facility] Comment on above: Order Comment: Campu s: M Result Comment: Conf irmed by slide estimate. Performed By: #### L 550.68980 #### [facility] [address] [place] [address] PLT EST MOD DECREASED Normal [facility] Comment on above: Order Comment: Campu s: M Performed By: #### L 550.58255 #### [facility] [address] [place] [address] POLY 1+ Normal [facility] Comment on above: Order Comment: Campu s: M Performed By: #### L 550.64026 #### [facility] [address] [place] [address] PROMYELOCYTE % 0.0 % Normal [facility] Comment on above: Order Comment: Campu s: M Performed By: #### L 550.48617 #### [facility] [address] [place] [address] RBC 3.61 M/CU MM Low 3.90-5.30 [facility] Comment on above: Order Comment: Campu s: M Performed By: #### L 550.59967 #### [facility] [address] [place] [address] WBC 7.4 K/CUMM Normal 4.5-11.0 [facility] Comment on above: Order Comment: Campu s: M Result Comment: Conf irmed by slide estimate. Performed By: #### L 550.01296 #### [facility] [address] [place] [address] GFR ESTon 02-23-2021 IF AMER 51 Normal [facility] Comment on above: Order Comment: Campu s: M Performed By: #### L 500.45982, L500.79041, L500.60069 #### [facility] [address] [place], [place] [address] IF non-AFR AMER 42 Normal [facility] Comment on above: Order Comment: Kevinu s: M Performed By: #### L 500.47715, L500.02955, L500.87451 #### [facility] [address] [place] [address] GLUCOSE METERon 02-23-2021 Glucose [Mass/Vol] 246 mg/dL High 85-125 [facility] [place] Glucose [Mass/Vol] 137 mg/dL High 85-125 [facility] [place] Glucose [Mass/Vol] 238 mg/dL High 85-125 [facility] Glucose [Mass/Vol] 114 mg/dL Normal 85-125 [facility] MAGNESIUMon 02-23-2021 Magnesium [Mass/Vol] 1.9 mg/dL Normal 1.6-2.6 [facility] Comment on above: Order Comment: Heidi s: M Performed By: #### L 500.33824, L500.50147, L500.36939 #### [facility] [address] [place] [address] PROG IMS 02-23-2021 PROG [facility] Patient Name: YARA BETH [address] [place] [address] [place] Date of : [address] [place] [address] Unit Number: [id number] Progress Note-Hospitalist Patient Status: ADM IN Attending Doctor: Skyler Fregoso DO Service Date: 02/23/21 1840 Chief Complaint Chief Complaint Neck mass. Subjective S: (2 ROS minimum) No new complaint. No chest pain, dyspnea, nausea, or vomiting. Her friend, Oliva, is at the bedside. Oliva states that Mats neck is looking much better. Objective (ROS) Nursing Vitals Vital Signs (Last) Result Date Time Pulse Ox 94 02/23 1539 B/P 100/48 02/23 1539 Temp 97.9 02/23 1539 Pulse 98 02/23 1539 Resp 16 02/23 1539 O2 Delivery NASAL CANNULA 02/23 0046 O2 Flow Rate 2 09/03 1826 B/P Mean 83 02/21 1500 General [...] no diarrhea Diagnostic Data: Lab 24hr (CBC/BMP [facility]) 02/23/21 1640: Whole Bld Glucose [...] 230 H 02/22/21 2000: Vancomycin Trough Cancelled Assessment and Plan Conclusion [...] I discussed the postbiopsy events with physician blood bank assistant Zaida and Dr. Saleh from ENT. I called and updated Dr. De Jesus from infectious disease as well. We will continue Zosyn and vancomycin while awaiting culture results. 02/21/2021: Has received a couple of IV fluid boluses overnight and this morning for borderline hypotension. Blood pressure is currently improved and Yara has been cleare (more content not included)... [facility] Progress Note-Hospitalist [facility] PROG.ENTon 02-23-2021 PROG.ENT [facility] Patient Name: YARA BETH [address] Date of : [address] [place] [id number] Unit Number: [id number] Progress Note-ENT Patient Status: ADM IN Attending Doctor: Skyler Fregoso DO Service Date: 02/23/21 1000 Progress Note - ENT Subjective Subjective: (2 ROS minimum) Patient feels like her swelling and pain are improved today. Denies any new issues. Objective Nursing Vitals Vital Signs (Last) Result Date Time Pulse Ox 92 02/23 0700 B/P 108/63 02/23 0700 Temp 98.4 02/23 0700 Pulse 91 02/23 0700 Resp 20 02/23 0700 O2 Delivery NASAL CANNULA 02/23 0046 O2 Flow Rate 2 02/22 1826 B/P Mean 83 02/21 1500 Physical Exam There is marked induration of the right neck. There is minimal purulent drainage coming through the Dariusz-Herman drain. There is mild bleeding from the drain puncture site. The bandage was removed and replaced at the bedside. Diagnostic Data Lab 24hr (CBC/BMP [facility]) 02/23/21 0735: Whole Bld Glucose [...] 1+ 02/22/212048: Whole Bld Glucose 230 H 09/03/21 2000: Vancomycin Trough Cancelled 02/22/21 1637: Whole [...] Saleh MD Verified/Reviewed by 02/23/21 1002 Normal [facility] BLOOD CULTUREon 02-22-2021 Bacteria identified Cx Nom (Bld) NO GROWTH AFTER 5 DAYS Normal [facility] Comment on above: Order Comment: Kevinu s: M Performed By: #### M 050.28363 #### [facility] [address] [place] [address] Performed By: #### M 050.97340 ####[facility] [id number] [place], [place] [address]Sa# [phone] BMPon 02-22-2021 Anion gap [Moles/Vol] 4 mmol/L Low 5-16 [facility] Comment on above: Order Comment: Campu s: M Performed By: #### L 500.32506, L500.32532, L500.97112 #### [facility] [place] [address] Calcium [Mass/Vol] 8.4 mg/dL Low 8.5-10.5 [facility] Comment on above: Order Comment: Campu s: M Result Comment: NOTE NEW NORMAL RANGE DUE TO REAGENT CHANGE Performed By: #### L 500.55299, L500.12984, L500.12289 #### [facility] [address] [place] [address] Chloride [Moles/Vol] 107 mmol/L Normal 98-107 [facility] Comment on above: Order Comment: Campu s: M Performed By: #### L 500.70322, L500.13920, L500.04254 #### [facility] [address] [place], [place] [address] CO2 [Moles/Vol] 29.0 mmol/L Normal 21-32 [facility] Comment on above: Order Comment: Campu s: M Performed By: #### L 500.62641, L500.68601, L500.37523 #### [facility] [place] [address] Creatinine [Mass/Vol] 1.48 mg/dL High 0.510- 0.95 0 [facility] Comment on above: Order Comment: Campu s: M Result Comment: Cori ents receiving either N-Acetylcysteine (NAC) or Metamizole prior to venipuncture, may have falsely depressed results. Performed By: #### L 500.75621, L500.24283, L500.34409 #### [facility] [place] [address] Glucose [Mass/Vol] 195 mg/dL High 70-100 [facility] Comment on above: Order Comment: Campu s: M Result Comment: 70-1 00- Normal Fasting; 100-125 Impaired Fasting; greater than 126 on more than one result- Diabetes. ADA guidelines. Results may be falsely elevated after the administration of Sulfapyridine. Results may be falsely depressed after the administration of Sulfasalazine. Performed By: #### L 500.78757, L500.54329, L500.31821 #### [facility] [address] [place] [address] Potassium [Moles/Vol] 4.1 mmol/L Normal 3.5-5.1 [facility] Comment on above: Order Comment: Campu s: M Performed By: #### L 500.66049, L500.76134, L500.28931 #### [facility] [address] [place] [address] Sodium [Moles/Vol] 140 mmol/L Normal 136-145 [facility] Comment on above: Order Comment: Campu s: M Performed By: #### L 500.57134, L500.55763, L500.07998 #### [facility] [address] [place] [address] Urea nitrogen [Mass/Vol] 18 mg/dL Normal 7-26 [facility] Comment on above: Order Comment: Campu s: M Performed By: #### L 500.48230, L500.41840, L500.35711 #### [facility] [address] [place] [address] Urea nitrogen/Creatinine [Mass ratio] 12 mg/mg Low 15-24 [facility] Comment on above: Order Comment: Campu s: M Performed By: #### L 500.48197, L500.38129, L500.83353 #### [facility] [address] [place] [address] 367[address] CBC W/DIFFon 02-22-2021 BASO ABS 0.00 K/CU MM Normal 0-0.2 [facility] Comment on above: Order Comment: Campu s: M Performed By: #### M 050.35775 #### [facility] [address] [place] [address] Basophils/100 WBC (Bld) 0.3 % Normal 0-2 [facility] Comment on above: Order Comment: Campu s: M Performed By: #### M 050.74775 #### [facility] [address] [place] [address] EOS ABS 0.10 K/CU MM Normal 0-0.5 [facility] Comment on above: Order Comment: Campu s: M Performed By: #### M 050.48054 #### [facility] [address] [place] [address] Eosinophils/100 WBC (Bld) 1.7 % Normal 0-5 [facility] Comment on above: Order Comment: Campu s: M Performed By: #### M 050.91778 #### [facility] [address] [place] [address] Erythrocyte distribution width (RBC) [Ratio] 12.9 % Normal 11-14.5 [facility] Comment on above: Order Comment: Campu s: M Performed By: #### M 050.72912 #### [facility] [address] [place] [address] Hematocrit (Bld) [Volume fraction] 33.7 % Low 35.0-47.0 [facility] Comment on above: Order Comment: Campu s: M Performed By: #### M 050.89521 #### [facility] [address] [place], [place] [address] Hemoglobin (Bld) [Mass/Vol] 11.5 g/dL Normal 11.5-15.5 [facility] Comment on above: Order Comment: Campu s: M Performed By: #### M 050.90925 #### [facility] [address] [place] [address] IMMATR GRAN ABS 0.10 K/CU MM Normal Less than 2 [facility] Comment on above: Order Comment: Campu s: M Performed By: #### M 050.34062 #### [facility] [address] [place] [address] IMMATURE GRAN % 0.8 % Normal Less than 2 [facility] Comment on above: Order Comment: Campu s: M Performed By: #### M 050.41914 #### [facility] [address] [place] [address] LYMPH ABS 1.00 K/CU MM Normal 0.9-4.4 [facility] Comment on above: Order Comment: Campu s: M Performed By: #### M 050.96317 #### [facility] [address] [place] [address] Lymphocytes/100 WBC (Bld) 14.8 % Low 20-40 [facility] Comment on above: Order Comment: Campu s: M Performed By: #### M 050.28969 #### [facility] [address] [place] [address] MCHC (RBC) [Mass/Vol] 34.1 g/dL Normal 32.0-36.0 [facility] Comment on above: Order Comment: Campu s: M Performed By: #### M 050.34592 #### [facility] [address] [place] [address] MCV (RBC) [Entitic vol] 93.9 fL Normal 80.0-99.0 [facility] Comment on above: Order Comment: Campu s: M Performed By: #### M 050.28922 #### [facility] [address] [place] [address] MONO ABS 0.60 K/CU MM Normal 0.1-1.1 [facility] Comment on above: Order Comment: Campu s: M Performed By: #### M 050.51537 #### [facility] [place] [id number] Monocytes/100 WBC (Bld) 8.6 % Normal 2-10 [facility] Comment on above: Order Comment: Campu s: M Performed By: #### M 050.95729 #### [facility] [address] [place] [address] NEUTROPHIL ABS 4.90 K/CU MM Normal 2.0-8.3 [facility] Comment on above: Order Comment: Campu s: M Performed By: #### M 050.01845 #### [facility] [address] [place] [address] Neutrophils/100 WBC (Bld) 73.8 % Normal 45-75 [facility] Comment on above: Order Comment: Campu s: M Performed By: #### M 050.96299 #### [facility] [address] [place] [address] Nucleated RBC/100 WBC (Bld) [Ratio] 0.0 % Normal Less than 1 [facility] Comment on above: Order Comment: Campu s: M Performed By: #### M 050.57003 #### [facility] [address] [place], [place] [address] Platelet mean volume (Bld) [Entitic vol] 10.9 fL Normal 9.4-12.4 [facility] Comment on above: Order Comment: Campu s: M Performed By: #### M 050.75411 #### [facility] [address] [place] [address] 10432 PLT 53 K/CU MM Low 150-450 [facility] Comment on above: Order Comment: Campu s: M Result Comment: Conf irmed by slide estimate. Performed By: #### M 050.92383 #### [facility] [address] [place] [address] PLT EST MOD DECREASED Normal [facility] Comment on above: Order Comment: Campu s: M Performed By: #### M 050.19238 #### [facility] [address] [place] [address] POIK 1+ Normal [facility] Comment on above: Order Comment: Campu s: M Performed By: #### M 050.94308 #### [facility] [address] [place] [address]55 RBC 3.59 M/CU MM Low 3.90-5.30 [facility] Comment on above: Order Comment: Campu s: M Performed By: #### M 050.00521 #### [facility] [address] [place], [place] [address] WBC 6.6 K/CUMM Normal 4.5-11.0 [facility] Comment on above: Order Comment: Campu s: M Result Comment: Conf irmed by slide estimate. Performed By: #### Gianna 050.89174 #### [facility] [address] [place] [address] GFR ESTon 02-22-2021 IF AMER 44 Normal [facility] Comment on above: Order Comment: Campu s: M Performed By: #### L 500.89501, L500.13371, L500.98312 #### [facility] [address] [place] [address] 929[address] IF non-AFR AMER 36 Normal [facility] Comment on above: Order Comment: Campu s: M Performed By: #### L 500.73506, L500.73777, L500.68711 #### [facility] [place] [address] GLUCOSE METERon 02-22-2021 Glucose [Mass/Vol] 230 mg/dL High 85-125 [facility] Glucose [Mass/Vol] 183 mg/dL High 85-125 [facility] Glucose [Mass/Vol] 143 mg/dL High 85-125 [facility] Glucose [Mass/Vol] 156 mg/dL High 85-125 [facility] Glucose [Mass/Vol] 164 mg/dL High 85-125 [facility] LACTIC ACIDon 02-22-2021 Lactate [Moles/Vol] 1.59 mmol/L Normal 0.40-2.00 [facility] Comment on above: Order Comment: Campu s: M Performed By: #### L 550.75711 #### [facility] [address] [place] [address] MAGNESIUMon 02-22-2021 Magnesium [Mass/Vol] 1.3 mg/dL Low 1.6-2.6 [facility] Comment on above: Order Comment: Campu s: M Performed By: #### L 500.85828, L500.11173, L500.74267 #### [facility] [address] [place] [address] PHA.NOTEon 02-22-2021 PHA.NOTE [facility]: [facility] [place] Date of : [address] [place], [place] [address] Unit Number: [id number] Pharmacy Note Patient Status: ADM IN Attending Doctor: Skyler Fregoso DO Service Date: 02/22/212151 Pharmacy Note - VANCO Sign Off Note: ID discontinued Vancomycin. Pharmacy will sign-off. Thank you for the consult. Disclaimer This dictation was created using voice recognition software. Phonetic and/or minor grammatical errors may exist. eSign Date and Time Sy Ceron Verified/Reviewed by 02/22/212151 Venkat Raphael PharmD Normal [facility] Pharmacy Note Normal [facility] [place] PROG IMSon 02-22-2021 PROG [facility]: [facility] [place] Date of : [address] [place] [address] Unit Number: [id number] Progress Note-Hospitalist Patient Status: ADM IN Attending [...] no diarrhea Diagnostic Data: Lab 24hr (CBC/BMP [facility]) 02/22/21 1637: Whole Bld Glucose [...] I discussed the postbiopsy events with physician blood bank assistant Zaida and Dr. Saleh from ENT. I called and updated Dr. De Jesus from infectious disease as well. We will continue Zosyn and vancomycin while awaiting culture results. 02/21/2021: Has received a couple of IV fluid boluses (more content not included)... [facility] Progress Note-Hospitalist [facility] SURG 02-22-2021 SURG -------- -------- Patient: YARA BETH A -------- SPECIMEN: [id number] Collection Date: 02/22/21 Received: 02/22/21 Status: PRISCILA Marie Dr.: Skyler Fregoso DO Ph# Othr. DrFrancine: Prashant Hernandez MD Othr. : Darryl Nam Material for Examination: A #3 [...] February 22, 2021 at 1306 hrs. -------- [facility] NAME: YARA BETH Pathology and Laboratory Medicine UNIT#: [id number] [address]: [address] Etcher: Jenna Hernandez M.D. ROOM/BED: [place] [address] [employer], [employer] : 64 AGE/SEX: 60/F ORD.Skyler Lea DO CONTINUED ON NEXT PAGE -------- Patient: YARA BETH Unit#: [id number] (continued) SPECIMEN: [id number] GROSS DESCRIPTION A. The [...] and/or minor grammatical errors may exist. -------- [facility] NAME: YARA BETH Pathology [facility] Laboratory Medicine UNIT#: [id number] LOC: [facility] Leather Etcher: Jenna Hernandez M.D. ROOM/BED: [place] [address] [employer] : 64 AGE/SEX: 60/F ORD.Skyler Lea DO END OF REPORT Normal [facility] [place] SURG TISSUEon 02-22-2021 SURG TISSUE GRAM STAIN FEW WBC'S NO ORGANISMS SEEN ORGANISM 1: MICROAEROPHILIC STREPTOCOCCUS QUANTITATION MODERATE ID TO FOLLOW NOT VIABLE FOR SENSITIVITY Normal [facility] Comment on above: Order Comment: Campu s: MNECK NEEDLE ASPIRATION Performed By: #### M 100.04471 ####[facility] [id number] [place], [place] [address]Xl# [phone] GLUCOSE METERon 02-21-2021 Glucose [Mass/Vol] 210 mg/dL High 85-125 [facility] Glucose [Mass/Vol] 233 mg/dL High 85-125 [facility] Glucose [Mass/Vol] 202 mg/dL High 85-125 [facility] Glucose [Mass/Vol] 217 mg/dL High 85-125 [facility] [place] PROG IMSon 02-21-2021 PROG [facility] Patient Name: YARA BETH [address] [facility] [place] Date of : [address] [place], [place] [address] Unit Number: [id number] Progress Note-Hospitalist Patient Status: ADM IN Attending [...] no diarrhea Diagnostic Data: Lab 24hr (CBC/BMP [facility]) 02/21/21 0821: Whole Bld Glucose 217 H 02/20/217: Whole Bld Glucose 347 H 09/01/21 2000: Vancomycin Trough Cancelled 02/20/21 1836: Vancomycin Trough 11.4 L 02/20/21 1654: Whole Bld Glucose 167 H 02/20/21 1436: Lactic Acid 3.53 H 02/20/21 1336: Procalcitonin 0.33 02/20/21 1336: Uai-A-Fxsjxkvlzke Pept 111 02/20/21 1300: Whole Bld Glucose [...] I discussed the postbiopsy events with physician blood bank assistant Zaida and Dr. Saleh from ENT. I [...] concur with pulmonary/cr (more content not included)... [facility] Progress Note-Hospitalist [facility] PROG.ENTon 02-21-2021 PROG.ENT [facility] Patient Name: YARA BETH A [address] Date of : [address] [place] [address] Unit Number: [id number] Progress Note-ENT Patient Status: ADM IN Attending Doctor: Skyler Fregoso DO Service Date: 02/21/21 1609 Progress Note - ENT Subjective Subjective: (2 ROS minimum) I am feeling better Objective Nursing Vitals Vital Signs (Last) Result Date Time Temp 98.9 02/21 1200 Pulse Ox 95 02/21 1200 B/P 118/56 02/21 1200 B/P Mean 79 02/21 1200 Pulse 96 09/ 1200 Resp 30 02/21 1200 Physical Exam [...] this area. Diagnostic Data Lab 24hr (CBC/BMP Susannah) 02/21/21 1142: Whole Bld Glucose 202 H [...] Clifton Lo MD Verified/Reviewed by 02/21/21 1615 [facility] Progress Note-ENT [facility] PROG.INTEAllyson 02-21-2021 PROG.INTEN [facility] Patient Name: YARA BETH [address] Date of : 64 [place], [place] [address] Unit Number: [id number] Progress Note-Oem Sales Manager Patient Status: ADM IN Attending Doctor: Skyler Fregoso DO Service Date: 02/21/21725 Progress Note-Oem Sales Manager Subjective Subjective: Patient denies fever chills. No shortness of breath. No wheezing no stridor. Patient did have episode some throbbing of right neck around 3 AM Patient states hungry/thirsty. Objective Vital Signs: Vital Signs (Last) Result Date Time Pulse Ox 93 02/21 0500 B/P 103/59 02/21 0500 B/P Mean 75 02/21 0500 Pulse 77 09 0500 Resp 16 02/21 0500 Temp 98.5 [...] (DULCOLAX RECT) RC Budesonide 0.5 MG BID@0800,02/18 2000 AC 02/20 (PULMOCORT 0.5MG/2ML INH 1999 INH.NEB) [...] Ringers) IV 1417 Magnesium Hydroxide 30 ML [id number] PRN 02/18 1200 AC (MILK OF MAGNESIA [...] 2100 AC 02/20 (VANCOMYCIN VIAL) IV 02/25 Sodium Chloride 250 ML (Sodium Chloride 0.9%) Vancomycin HCl See Dose DIRECTED PRN 02/19 2000 AC (VANCOMYCIN VIAL) Insts (2) IV [...] MAYTE Negrete (more content not included)... Normal [facility] Progress Note-Oem Sales Manager [facility] PROG.NOTEon 02-21-2021 PROG.NOTE [facility] Patient Name: YARA BETH [address] Date of : 64 [place], [place] [address] Unit Number: [id number] Progress Note-Physician Patient Status: ADM IN Attending [...] No Rash Diagnostic Data: Lab 24hr (CBC/BMP [facility]) 02/21/21 0821: Whole Bld Glucose 217 H 02/20/21 2117: Whole Bld Glucose 347 H 02/20/21 2000: Vancomycin Trough Cancelled 02/20/21 1836: Vancomycin Trough 11.4 L 02/20/21 1654: Whole Bld Glucose 167 H 02/20/21 1436: Lactic Acid 3.53 H 02/20/21 1336: Procalcitonin 0.33 02/20/21 1336: Znn-I-Fzoqxhuouue Pept 111 02/20/21 1300: Whole Bld Glucose [...] De Jesus MD Verified/Reviewed by 02/21/21 1204 [facility] Progress Note-Physician [facility] BMP 02-20-2021 Anion gap [Moles/Vol] 5 mmol/L Normal 5-16 [facility] Comment on above: Order Comment: Heidi s: M Performed By: #### M 050.45727 #### [facility] [address] [place] [address] Calcium [Mass/Vol] 8.3 mg/dL Low 8.5-10.5 [facility] Comment on above: Order Comment: Campu s: M Result Comment: NOTE NEW NORMAL RANGE DUE TO REAGENT CHANGE Performed By: #### M 050.62582 #### [facility] [address] [place] [address] Chloride [Moles/Vol] 106 mmol/L Normal 98-107 [facility] Comment on above: Order Comment: Campu s: M Performed By: #### M 050.85423 #### [facility] [address] [place] [address] CO2 [Moles/Vol] 26.0 mmol/L Normal 21-32 [facility] Comment on above: Order Comment: Campu s: M Performed By: #### M 050.09907 #### [facility] [address] [place] [address] Creatinine [Mass/Vol] 1.54 mg/dL High 0.510- 0.95 0 [facility] Comment on above: Order Comment: Campu s: M Result Comment: Cori ents receiving either N-Acetylcysteine (NAC) or Metamizole prior to venipuncture, may have falsely depressed results. Performed By: #### M 050.94264 #### [facility] [address] [place] [address] Glucose [Mass/Vol] 213 mg/dL High 70-100 [facility] Comment on above: Order Comment: Campu s: M Result Comment: 70-1 00- Normal Fasting; 100-125 Impaired Fasting; greater than 126 on more than one result- Diabetes. ADA guidelines. Results may be falsely elevated after the administration of Sulfapyridine. Results may be falsely depressed after the administration of Sulfasalazine. Performed By: #### M 050.77095 #### [facility] [address] [place] [address] Potassium [Moles/Vol] 4.3 mmol/L Normal 3.5-5.1 [facility] Comment on above: Order Comment: Campu s: M Result Comment: Slig ht Hemolysis, Result may be affected. Performed By: #### M 050.75889 #### [facility] [address] [place] [address] Sodium [Moles/Vol] 137 mmol/L Normal 136-145 [facility] Comment on above: Order Comment: Campu s: M Performed By: #### M 050.90050 #### [facility] [address] [place] [address] Urea nitrogen [Mass/Vol] 18 mg/dL Normal 7-26 [facility] Comment on above: Order Comment: Campu s: M Performed By: #### M 050.03977 #### [facility] [address] [place] [address] Urea nitrogen/Creatinine [Mass ratio] 12 mg/mg Low 15-24 [facility] Comment on above: Order Comment: Campu s: M Performed By: #### M 050.65905 #### [facility] [address] [place] [address] BODY FLDon 02-20-2021 BODY FLD This report has been cancelled Normal [facility] Comment on above: Order Comment: Campu s: M CBC W/DIFFon 02-20-2021 BASO ABS 0.00 K/CU MM Normal 0-0.2 [facility] Comment on above: Order Comment: Campu s: M Performed By: #### L 200.13939 ####[facility] [id number] [place], [place] [address]Sp# [phone] Basophils/100 WBC (Bld) 0.4 % Normal 0-2 [facility] Comment on above: Order Comment: Campu s: M Performed By: #### L 200.57806 ####[facility] [id number] [place], [place] [address]Gv# [phone] EOS ABS 0.10 K/CU MM Normal 0-0.5 [facility] Comment on above: Order Comment: Campu s: M Performed By: #### L 200.86740 ####[address] [address]Lw# [phone] Eosinophils/100 WBC (Bld) 1.8 % Normal 0-5 [facility] Comment on above: Order Comment: Campu s: M Performed By: #### L 200.87810 ####[place] [address]Ph# [phone] Erythrocyte distribution width (RBC) [Ratio] 12.9 % Normal 11-14.5 [facility] Comment on above: Order Comment: Campu s: M Performed By: #### L 200.47071 ####[facility] [id number] [place], [place] [address]Ph# [phone] Hematocrit (Bld) [Volume fraction] 35.1 % Normal 35.0-47.0 [facility] Comment on above: Order Comment: Campu s: M Performed By: #### L 200.72669 ####[address] [address]Po# [phone] Hemoglobin (Bld) [Mass/Vol] 12.2 g/dL Normal 11.5-15.5 [facility] Comment on above: Order Comment: Campu s: M Performed By: #### L 200.30190 ####[facility] [address] [place] [address]Zw# [phone] IMMATR GRAN ABS 0.10 K/CU MM Normal Less than 2 [facility] Comment on above: Order Comment: Campu s: M Performed By: #### L 200.75398 ####[facility] SQSPTXGCOQ[address] [place], [place] [address]Ph# [phone] IMMATURE GRAN % 0.6 % Normal Less than 2 [facility] Comment on above: Order Comment: Campu s: M Performed By: #### L 200.37824 ####[facility] D[address]FOU[address] [place] [address]Sh# [phone] LYMPH ABS 1.10 K/CU MM Normal 0.9-4.4 [facility] Comment on above: Order Comment: Campu s: M Performed By: #### L 200.32583 ####[facility] [id number] [place], [place] [address]Ph# [phone] Lymphocytes/100 WBC (Bld) 13.8 % Low 20-40 [facility] Comment on above: Order Comment: Campu s: M Performed By: #### L 200.51999 ####[place] [address]Ph# [phone] MCHC (RBC) [Mass/Vol] 34.8 g/dL Normal 32.0-36.0 [facility] Comment on above: Order Comment: Campu s: M Performed By: #### L 200.75373 ####[facility] [id number] [place], [place] [address]Ph# [phone] MCV (RBC) [Entitic vol] 93.1 fL Normal 80.0-99.0 [facility] Comment on above: Order Comment: Campu s: M Performed By: #### L 200.29459 ####[facility] [address] [place] [address]Mb# [phone] MONO ABS 0.70 K/CU MM Normal 0.1-1.1 [facility] Comment on above: Order Comment: Campu s: M Performed By: #### L 200.90973 ####[facility] [address]JDJEUUB[address] [place], [place] [address]Ph# [phone] Monocytes/100 WBC (Bld) 8.7 % Normal 2-10 [facility] Comment on above: Order Comment: Campu s: M Performed By: #### L 200.84832 ####[facility] ZVJHOHDCRB7814 [place], [place] [address]Sg# [phone] NEUTROPHIL ABS 5.90 K/CU MM Normal 2.0-8.3 [facility] Comment on above: Order Comment: Campu s: M Performed By: #### L 200.46015 ####[facility] RTPSLRVENG4366 [place], [place] [address]Ls# [phone] Neutrophils/100 WBC (Bld) 74.7 % Normal 45-75 [facility] Comment on above: Order Comment: Campu s: M Performed By: #### L 200.94792 ####[facility] M[address]ZUU[address] [place] [address]Xl# [phone] Nucleated RBC/100 WBC (Bld) [Ratio] 0.0 % Normal Less than 1 [facility] Comment on above: Order Comment: Campu s: M Performed By: #### L 200.41442 ####[facility] [id number] [place] [address]Dk# [phone] Platelet mean volume (Bld) [Entitic vol] 10.9 fL Normal 9.4-12.4 [facility] Comment on above: Order Comment: Campu s: M Performed By: #### L 200.26220 ####[facility] PRCOXAVDYG6051 [place], [place] [address]Ns# [phone] PLT 67 K/CU MM Low 150-450 [facility] Comment on above: Order Comment: Campu s: M Result Comment: Conf irmed by slide estimate. Performed By: #### L 200.48628 ####[facility] WGAASKSVNM8419 [place], [place] [address]Wh# [phone] PLT EST MOD DECREASED Normal [facility] Comment on above: Order Comment: Campu s: M Performed By: #### L 200.48026 ####[facility] OCOMIVLVOV4498 [place], [place] [address]Ki# [phone] POIK 1+ Normal [facility] Comment on above: Order Comment: Campu s: M Performed By: #### L 200.66810 ####[facility] OBRXXOSRRN3437 [place], [place] [address]Jt# [phone] POLY 1+ Normal [facility] Comment on above: Order Comment: Campu s: M Performed By: #### L 200.24401 ####[facility] SCBUMKZGEG9125 [place], [place] [address]Kv# [phone] RBC 3.77 M/CU MM Low 3.90-5.30 [facility] Comment on above: Order Comment: Campu s: M Performed By: #### L 200.38972 ####[facility] JYXCNQJPPG5102 [place], [place] [address]Vv# [phone] WBC 8.0 K/CUMM Normal 4.5-11.0 [facility] Comment on above: Order Comment: Campu s: M Performed By: #### L 200.13913 ####[facility] [id number] [place] [address]Gk# [phone] CONS.INTENon 02-20-2021 CONS.INTEN [facility] Patient Name: YARA BETH [address] [facility] Date of : [address] [place] [address] Unit Number: [id number] Consultation-Oem Sales Manager Patient Status: ADM IN Attending Doctor: Skyler [...] she has seen an ENT physician in [place] multiple times over the course of the following 2 weeks. She had been on 3 antibiotic courses. She actually underwent a resection of a tonsillar abscess at one point which she states did make some difference. Any rate she ultimately presented to [facility] on 02/18/2021 for IV antibiotics and further [...] use. Denies drug use. 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 She resides with her father. She does not have children. Allergies/Home Medications Allergies Coded Allergies: MEPERIDINE (From DEMEROL) (Severe, 02/18/21) Home Medications Budesonide/Formoterol Fum (Symbicort 160/4.5 Mcg INH) 1 PUFF HFA.AER.AD 2 PUFF INH QIDPRN PRN Shortness of Breath, Ref 0 (Reported) Entered as Reported by KRYSTAL SIMS on 02/18/211636 Last Action: Reviewed on 02/22/21 144 by CHARISSE PABON Levocetirizine Dihydrochloride 5 MG TABLET 5 MG PO QDAY, Ref 0 (Reported) Entered as Reported by KRYSTAL SIMS on 02/18/21 163 Last Action: Reviewed on 02/22/21 144 by CHARISSE PABON Pantoprazole* (Protonix 40MG Tab*) 40 MG TABLET.DR 40 MG PO QDAYAC, Ref 0 (Reported) Entered as Reported by KRYSTAL SIMS on 02/18/21 163 Last Action: Reviewed on 02/22/211444 by CHARISSE PABON Sitagliptin Phosphate* (Januvia Tab*) 50 MG TABLET 50 MG PO QDAYWM, Ref 0 (Reported) Entered as Reported by KRYSTAL SIMS on 02/18/21 163 Last Action: Reviewed on 02/22/211444 by CHARISSE [...] cyanosis or clubbing. (more content not included)... [facility] 02-20-2021 IF AMER 42 [facility] Comment on above: Order Comment: Heidi s: M Performed By: #### M 050.35386 #### [facility] [address] [place] [address] IF non-AFR AMER 35 [facility] Comment on above: Order Comment: Heidi s: M Performed By: #### M 050.52224 #### [facility] [address] [place] [address] GLUCOSE METERon 02-20-2021 Glucose [Mass/Vol] 347 mg/dL High 85-125 [facility] Glucose [Mass/Vol] 167 mg/dL High 85-125 [facility] Glucose [Mass/Vol] 163 mg/dL High 85-125 [facility] Glucose [Mass/Vol] 200 mg/dL High 85-125 [facility] Glucose [Mass/Vol] 269 mg/dL High 85-125 [facility] LACTIC ACIDon 02-20-2021 Lactate [Moles/Vol] 3.53 mmol/L High 0.40-2.00 [facility] Comment on above: Order Comment: Heidi s: M Performed By: #### L 550.12878 ####[facility] PRZPHIFXVJ7985 [place], [place] [address]Dy# [phone] NONGYNon 02-20-2021 NONGYN -------- -------- Patient: YARA BETH -------- -------- Specimen: [id number] Spec Type: NONGYN Ord. : Skyler Fregoso DO Status: SOUT Collect Date: 02/20/211103 Received Date: 02/20/21 113 Source: Neck, NOS(Right neck mass biopsy) Procedure: [...] Verified/Reviewed by JENNA HERNANDEZ M.D. 02/21/21 -------- [facility] NAME: YARA BETH Pathology and Laboratory Medicine UNIT#: [id number] LOC: [facility] Leather Etcher: Jenna Hernandez [facility].D. [id number] ROOM/BED: [place] [address] [address], Quintiles : 64 AGE/SEX: 60/F ORD.Skyler Lea DO END OF REPORT Normal [facility] PBNP TESTon 02-20-2021 Natriuretic peptide B (Bld) [Mass/Vol] 111 pg/mL Normal 0-125 [facility] Comment on above: Order Comment: [...] NEW NORMAL RANGE Performed By: #### L 500.46467, L500.27276, L500.41844 #### [facility] [address] [place] [address] PHA.NOTEon 02-20-2021 PHA.NOTE [facility] Patient Name: YARA BETH [address] [place] [address] Date of : [address] [place] [address] Unit Number: [id number] Pharmacy Note Patient Status: ADM IN Attending [...] Verified/Reviewed by 02/20/211957 Janes Colon PharmD Normal [facility] Pharmacy Note Normal [facility] PROCAL Aon 02-20-2021 PROCAL A 0.33 NG/ML Normal 0-0.50 [facility] Comment on above: Order Comment: [...] obtained from the [employer] platform vs the [employer] platform (previous). NOTE NEW NORMAL RANGE DUE TO REAGENT CHANGE Performed By: #### L 550.65653 ####[facility] [id number] [address]# [phone] [facility] Name: YARA BETH [address] [facility] Date of : [address] [place] [address] Unit Number: [id number] Progress Note-Hospitalist Patient Status: ADM IN Attending [...] no guarding Diagnostic Data: Lab 24hr (CBC/BMP [place]) 02/20/21 0755: Whole Bld Glucose 200 H [...] I discussed the postbiopsy events with physician blood bank assistant Zaida and Dr. Saleh from ENT. I called and updated Dr. De Jesus from infectious disease as well. We will continue Zosyn and vancomycin while awaiting culture results. Disclaimer This dictation was created using voice recognition software. Phonetic and/or minor grammatical errors may exist. eSign Date and Time Doc Zhang MD Verified/R (more content not included)... [facility] Progress Note-Hospitalist [facility] PROG.ENTon 02-20-2021 PROG.ENT [facility] Patient Name: YARA BETH A [address] Date of : [address] [place] [address] Unit Number: [id number] Progress Note-ENT Patient Status: ADM IN Attending [...] 83 02/20 821 Resp 18 02/20 821 VSS. Afebrile. Physical Exam NAD. Patient is laying back comfortably in bed. Neck examination reveals a large, firm mass on the right side of her neck. The area is tender to palpation. Diagnostic Data Lab 24hr (CBC/BMP [facility]) 02/20/21 0755: Whole Bld Glucose [...] Estimate MOD DECREASED, Polychromasia 1+, Poikilocytosis 1+ 02/19/217: Whole Bld Glucose 269 H 02/19/21 1714: [...] Time Ruchi Cerda PAC Verified/Reviewed by 02/20/21920 Fabien Saleh MD [facility] Progress Note-ENT Normal [facility] PROG.NOTEon 02-20-2021 PROG.NOTE [facility] Patient Name: YARA BETH [address] Date of : [address] [place] [address] Unit Number: [id number] Progress Note-Physician Patient Status: ADM IN Attending [...] No Rash Diagnostic Data: Lab 24hr (CBC/BMP [facility]) 02/20/21 0755: Whole Bld Glucose [...] Nino De Jesus MD Verified/Reviewed by 02/20/21 0934 [facility] Progress Note-Physician [facility] SURGbradford 02-20-2021 SURG -------- -------- Patient: YARA BETH -------- SPECIMEN: [id number] Collection Date: 02/20/21 Received: 02/20/21 Status: PRISCILA MccarthyFrancine Givens: Skyler Fregoso DO # Othr. Dr.: Michael Graf MD [facility]. Dr.: Ruchi Cerda [facility]. DrFrancine: Darryl Nam Material for Examination: A RIGHT NECK MASS CORE BX PRE-OP DIAGNOSIS: RIGHT NECK MASS POST-OP DIAGNOSIS: NONE GIVEN SURGICAL PROCEDURE: RIGHT NECK MASS CORE BIOPSY DIAGNOSIS A. Right neck mass, core biopsy: - Fragments of skeletal muscle and acute inflammatory cells/abscess material. - No evidence of malignancy in the sections examined. COMMENT A parts counter representative sample was submitted to microbiology lab [...] and/or minor grammatical errors may exist. -------- [facility] NAME: YARA BETH Pathology and Laboratory Medicine UNIT#: [id number] LOC: .8M Leather Etcher: Jenna Hernandez M.D. [facility] [id number] ROOM/BED: [place] [address] Revstr : 64 AGE/SEX: 60/F ORD.Skyler Lea DO END OF REPORT Normal [facility] VANC TROUGHon 02-20-2021 VANC TROUGH 11.4 MCG/ML Low 15.0-20.0 [facility] Comment on above: Order Comment: Campu s: M Performed By: #### L 200.15137 #### [facility] [address] [place] [address] BMPon 02-19-2021 Anion gap [Moles/Vol] 5 mmol/L Normal 5-16 [facility] Comment on above: Order Comment: Campu s: M Performed By: #### L 500.65021, L500.91798 ####[facility] [id number] [place], [place] [address]Dj# [phone] Calcium [Mass/Vol] 8.4 mg/dL Low 8.5-10.5 [facility] Comment on above: Order Comment: Campu s: M Result Comment: NOTE NEW NORMAL RANGE DUE TO REAGENT CHANGE Performed By: #### L 500.98091, L500.39639 ####[facility] PUOPFKNJGL6952 [place], [place] [address]Hq# [phone] Chloride [Moles/Vol] 105 mmol/L Normal 98-107 [facility] Comment on above: Order Comment: Campu s: M Performed By: #### L 500.27351, L500.74370 ####[facility] VFZFUEBWQZ8848 [place], [place] [address]Xy# [phone] CO2 [Moles/Vol] 27.0 mmol/L Normal 21-32 [facility] Comment on above: Order Comment: Campu s: M Performed By: #### L 500.31712, L500.93516 ####[facility] TGPOXZXUVW0663 [place], [place] [address]Cl# [phone] Creatinine [Mass/Vol] 1.34 mg/dL High 0.510- 0.95 0 [facility] Comment on above: Order Comment: Campu s: M Result Comment: Cori ents receiving either N-Acetylcysteine (NAC) or Metamizole prior to venipuncture, may have falsely depressed results. Performed By: #### L 500.53239, L500.15496 ####[facility] TRCRUEOKBZ7118 [place], [place] [address]Rx# [phone] Glucose [Mass/Vol] 210 mg/dL High 70-100 [facility] Comment on above: Order Comment: Campu s: M Result Comment: 70-1 00- Normal Fasting; 100-125 Impaired Fasting; greater than 126 on more than one result- Diabetes. ADA guidelines. Results may be falsely elevated after the administration of Sulfapyridine. Results may be falsely depressed after the administration of Sulfasalazine. Performed By: #### L 500.61422, L500.45922 ####[facility] [id number] [place], [place] [address]Rc# [phone] Potassium [Moles/Vol] 4.3 mmol/L Normal 3.5-5.1 [facility] Comment on above: Order Comment: Kevinu s: M Result Comment: Slig ht Hemolysis, Result may be affected. Performed By: #### L 500.64265, L500.49850 ####[facility] WMAAKQLSMS5168 [place], [place] [address]Tu# [phone] Sodium [Moles/Vol] 137 mmol/L Normal 136-145 [facility] Comment on above: Order Comment: Kevinu s: M Performed By: #### L 500.72835, L500.27122 ####[facility] ZCWYAEFHBC2541 [place], [place] [address]Rw# [phone] Urea nitrogen [Mass/Vol] 19 mg/dL Normal 7-26 [facility] Comment on above: Order Comment: Campu s: M Performed By: #### L 500.53539, L500.10806 ####[facility] ADNIUUCDWG2295 [place], [place] [address]Bt# [phone] Urea nitrogen/Creatinine [Mass ratio] 14 mg/mg Low 15-24 [facility] Comment on above: Order Comment: Campu s: M Performed By: #### L 500.68743, L500.91096 ####[facility] [id number] [place], [place] [address]Ph# [phone] CBCon 02-19-2021 Erythrocyte distribution width (RBC) [Ratio] 12.8 % Normal 11-14.5 [facility] Comment on above: Order Comment: Campu s: M Performed By: #### L 200.24341 #### [facility] [address] [place] [address] Hematocrit (Bld) [Volume fraction] 36.7 % Normal 35.0-47.0 [facility] Comment on above: Order Comment: Campu s: M Performed By: #### L 200.57834 #### [facility] [address] [place] [address] Hemoglobin (Bld) [Mass/Vol] 12.6 g/dL Normal 11.5-15.5 [facility] Comment on above: Order Comment: Campu s: M Performed By: #### L 200.28624 #### [facility] [address] [place], [place] [address] MCHC (RBC) [Mass/Vol] 34.3 g/dL Normal 32.0-36.0 [facility] Comment on above: Order Comment: Campu s: M Performed By: #### L 200.88803 #### [facility] [address] [place] [address] MCV (RBC) [Entitic vol] 94.3 fL Normal 80.0-99.0 [facility] Comment on above: Order Comment: Campu s: M Performed By: #### L 200.64850 #### [facility] [address] [place] [address] Nucleated RBC/100 WBC (Bld) [Ratio] 0.0 % Normal Less than 1 [facility] Comment on above: Order Comment: Campu s: M Performed By: #### L 200.77208 #### [facility] [address] [place] [address] Platelet mean volume (Bld) [Entitic vol] 10.4 fL Normal 9.4-12.4 [facility] Comment on above: Order Comment: Campu s: M Performed By: #### L 200.97929 #### [facility] [address] [place] [address] PLT 68 K/CU MM Low 150-450 [facility] Comment on above: Order Comment: Campu s: M Result Comment: Conf irmed by slide estimate. Performed By: #### L 200.57744 #### [facility] [address] [place] [address] RBC 3.89 M/CU MM Low 3.90-5.30 [facility] Comment on above: Order Comment: Campu s: M Performed By: #### L 200.09129 #### [facility] [address] [place] [address] WBC 9.3 K/CUMM Normal 4.5-11.0 [facility] Comment on above: Order Comment: Campu s: M Performed By: #### L 200.85842 #### [facility] [address] [place] [address] CONS.ENTon 02-19-2021 CONS.ENT [facility] Patient Name: YARA BETH [facility]0 [facility] Date of : [address] [place] [address] Unit Number: [id number] CONSULTATION-ENT Patient Status: ADM IN Attending Doctor: [...] She went to see Dr. Newman at [place] who is an ENT and he obtained [...] Result Date Time Pulse Ox 93 02/19 0735 B/P 141/69 02/19 0735 Temp 98.0 02/19 0735 Pulse 81 02/19 0735 Resp 18 02/19 0735 VSS. Afebrile. Physical Exam Summary NAD. Patient [...] swelling seen. Diagnostic Data Lab 24hr (CBC/BMP Fishbone) 02/19/21 0825: Whole Bld Glucose 219 H [...] # 0.10, Baso (more content not included)... Normal [facility] CONSULTATION-ENT Normal [facility] Mckenna GFR ESTon 02-19-2021 IF AMER 49 [facility] Comment on above: Order Comment: Kevinu s: M Performed By: #### L 500.54990, L500.88254 ####[facility] [id number] [place], [place] [address]Rc# [phone] IF non-AFR AMER 41 [facility] Comment on above: Order Comment: Kevinu s: M Performed By: #### L 500.90031, L500.86226 ####[facility] [id number] [place], [place] [address]Sn# [phone] GLUCOSE METERon 02-19-2021 Glucose [Mass/Vol] 192 mg/dL High 85-125 [facility] Gl[facility] [Mass/Vol] 306 mg/dL High 85-125 [facility] Glucose [Mass/Vol] 219 mg/dL High 85-125 [facility] Glucose [Mass/Vol] 287 mg/dL High 85-125 [facility] Mckenna HP.Varghese 02-19-2021 HP.IMS.SOUMYA [facility] Patient Name: YARA BETH [address] Date of : [address] [address] Unit Number: [id number] CONSULTATION-HandP Patient Status: ADM IN Attending Doctor: [...] been following with ENT Dr. Newman in [place], has gotten 2 courses of po abx [...] as Reported by KRYSTAL SIMS on 02/18/21 1637 Last Action: Continued on 02/18/211650 by SKYLER [...] Last Action: Continued on 02/18/211650 by SKYLER FRGEOSO Spironolactone* (Aldactone 100MG Tab*) 100 MG TABLET 100 MG PO QDAYWM, Ref 0 (Reported) Entered as Reported by KRYSTAL SIMS on 02/18/211632 Last Action: Continued on 02/18/211650 by SKYLER FREGOSO Physical Exam Vital Signs Vital Signs (Last) Result Date Time Pulse Ox 93 02/19 07 B/P 141/69 02/19 07 Temp 98.0 02/19 07 Pulse 81 02/19 0735 Resp 18 02/19 0735 Appearance - PE Awake, Alert, No distress [...] 75 %) (more content not included)... Normal [facility] 02-19-2021 PROG [facility] Patient Name: YARA BETH A [address] Date of : [address] [address] Unit Number: [id number] Progress Note-Hospitalist Patient Status: ADM IN Attending [...] Result Date Time Pulse Ox 93 02/19 0735 B/P 141/69 02/19 07 Temp 98.0 02/19 0735 Pulse 81 02/19 0735 Resp 18 02/19 0735 General Appearance GEN: Pt is not in acute distress HEENT: normocephalic. PEERL. nonicteric. Right sternocleidomastoid fluid-filled mass. PULM: B/l VBS, CTA CV: S1 S2 normal, no m/r/g ABD: no organomegaly. soft. Nontender. no ascites. no rebound. Obesity. EXT: no edema. no cyanosis Neuro: CN 2-12 intact. alert. coherent. verbal. MAEx4. SKIN: no diaphoresis. no jaundice. decent perfusion. 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 For heart valve and shunt patients the range is 2.5 - 3.5. Performed By: #### L 200.02357 #### [facility] [address] [place] [address] PTS 12.6 SECONDS High 9.5-12.0 [facility] Comment on above: Order Comment: Heidi s: M Performed By: #### L 200.66559 #### [facility] [address] [place] [address] PTTon 02-19-2021 aPTT Coag (Bld) [Time] 26.5 s Normal 22.0-31.5 [facility] Comment on above: Order Comment: Kevinu s: M Result Comment: Ther apeutic Heparin Reference Range: [...] using the PTT. Performed By: #### L 200.58923 #### [facility] [place] [id number] BIOPSY TRANSCATHETER X/R MEJIA [facility] 02-18-2021 BIOPSY [...] M.D. Signed By: MICHAEL GRAF M.D. Normal [facility] 02-18-2021 Anion gap [Moles/Vol] 7 mmol/L Normal 5-16 [facility] Comment on above: Order Comment: Campu s: M Performed By: #### L 500.85396, L500.53858, L500.90231 #### [facility] [address] [place] [address] Calcium [Mass/Vol] 8.7 mg/dL Normal 8.5-10.5 [facility] Comment on above: Order Comment: Campu s: M Result Comment: NOTE NEW NORMAL RANGE DUE TO REAGENT CHANGE Performed By: #### L 500.53730, L500.52577, L500.08507 #### [facility] [address] [place] [address] Chloride [Moles/Vol] 102 mmol/L Normal 98-107 [facility] Comment on above: Order Comment: Campu s: M Performed By: #### L 500.11998, L500.20417, L500.71970 #### [facility] [address] [place] [address] CO2 [Moles/Vol] 27.0 mmol/L Normal 21-32 [facility] Comment on above: Order Comment: Campu s: M Performed By: #### L 500.95824, L500.92575, L500.73882 #### [facility] [address] [place] [address] Creatinine [Mass/Vol] 1.37 mg/dL High 0.510- 0.95 0 [facility] Comment on above: Order Comment: Campu s: M Result Comment: Cori ents receiving either N-Acetylcysteine (NAC) or Metamizole prior to venipuncture, may have falsely depressed results. Performed By: #### L 500.32100, L500.24563, L500.25605 #### [facility] [address] [place] [address] Glucose [Mass/Vol] 262 mg/dL High 70-100 [facility] Comment on above: Order Comment: Campu s: M Result Comment: 70-1 00- Normal Fasting; 100-125 Impaired Fasting; greater than 126 on more than one result- Diabetes. ADA guidelines. Results may be falsely elevated after the administration of Sulfapyridine. Results may be falsely depressed after the administration of Sulfasalazine. Performed By: #### L 500.76256, L500.30448, L500.82566 #### [facility] [place] [address] Potassium [Moles/Vol] 4.5 mmol/L Normal 3.5-5.1 [facility] Comment on above: Order Comment: Campu s: M Result Comment: Slig ht Hemolysis, Result may be affected. Performed By: #### L 500.51311, L500.56806, L500.48856 #### [facility] [address] [place], [place] [address] Sodium [Moles/Vol] 136 mmol/L Normal 136-145 [facility] Comment on above: Order Comment: Campu s: M Performed By: #### L 500.98770, L500.17373, L500.73222 #### [facility] [address] [place] [address] Urea nitrogen [Mass/Vol] 21 mg/dL Normal 7-26 [facility] Comment on above: Order Comment: Campu s: M Performed By: #### L 500.48220, L500.11468, L500.80111 #### [facility] [address] [place] [address] Urea nitrogen/Creatinine [Mass ratio] 15 mg/mg Normal 15-24 [facility] Comment on above: Order Comment: Campu s: M Performed By: #### L 500.23851, L500.32164, L500.77609 #### [facility] [address] [place] [address] CBC W/DIFFon 02-18-2021 BASO ABS 0.00 K/CU MM Normal 0-0.2 [facility] Comment on above: Order Comment: Campu s: M Performed By: #### L 550.77617 #### [facility] [address] [place], [place] [address] Basophils/100 WBC (Bld) 0.3 % Normal 0-2 [facility] Comment on above: Order Comment: Campu s: M Performed By: #### L 550.55705 #### [facility] [address] [place], [place] [address] EOS ABS 0.10 K/CU MM Normal 0-0.5 [facility] Comment on above: Order Comment: Campu s: M Performed By: #### L 550.49490 #### [facility] [address] [place] [address] Eosinophils/100 WBC (Bld) 0.7 % Normal 0-5 [facility] Comment on above: Order Comment: Campu s: M Performed By: #### L 550.49450 #### [facility] [address] [place] [address] Erythrocyte distribution width (RBC) [Ratio] 12.7 % Normal 11-14.5 [facility] Comment on above: Order Comment: Campu s: M Performed By: #### L 550.28464 #### [facility] [address] [place] [address] Hematocrit (Bld) [Volume fraction] 42.9 % Normal 35.0-47.0 [facility] Comment on above: Order Comment: Campu s: M Performed By: #### L 550.01543 #### [facility] [address] [place] [address] Hemoglobin (Bld) [Mass/Vol] 14.6 g/dL Normal 11.5-15.5 [facility] Comment on above: Order Comment: Campu s: M Performed By: #### L 550.82436 #### [facility] [address] [place] [address] IMMATR GRAN ABS 0.10 K/CU MM Normal Less than 2 [facility] Comment on above: Order Comment: Campu s: M Performed By: #### L 550.73401 #### [facility] [address] [place], [place] [address] IMMATURE GRAN % 0.8 % Normal Less than 2 [facility] Comment on above: Order Comment: Campu s: M Performed By: #### L 550.19108 #### [facility] [place] [address] LYMPH ABS 1.20 K/CU MM Normal 0.9-4.4 [facility] Comment on above: Order Comment: Campu s: M Performed By: #### L 550.88263 #### [facility] [address] [place] [address] Lymphocytes/100 WBC (Bld) 10.2 % Low 20-40 [facility] Comment on above: Order Comment: Campu s: M Performed By: #### L 550.11196 #### [facility] [address] [place] [address] MCHC (RBC) [Mass/Vol] 34.0 g/dL Normal 32.0-36.0 [facility] Comment on above: Order Comment: Campu s: M Performed By: #### L 550.97282 #### [facility] [address] [place] [address] MCV (RBC) [Entitic vol] 95.1 fL Normal 80.0-99.0 [facility] Comment on above: Order Comment: Campu s: M Performed By: #### L 550.44417 #### [facility] [address] [place] [address] MONO ABS 0.90 K/CU MM Normal 0.1-1.1 [facility] Comment on above: Order Comment: Campu s: M Performed By: #### L 550.39207 #### [facility] [address] [place], [place] [address] Monocytes/100 WBC (Bld) 7.8 % Normal 2-10 [facility] Comment on above: Order Comment: Campu s: M Performed By: #### L 550.17538 #### [facility] [address] [place] [address] NEUTROPHIL ABS 9.10 K/CU MM High 2.0-8.3 [facility] Comment on above: Order Comment: Campu s: M Performed By: #### L 550.42555 #### [facility] [address] [place], [place] [address] Neutrophils/100 WBC (Bld) 80.2 % High 45-75 [facility] Comment on above: Order Comment: Campu s: M Performed By: #### L 550.18468 #### [facility] [address] [place] [address] Nucleated RBC/100 WBC (Bld) [Ratio] 0.0 % Normal Less than 1 [facility] Comment on above: Order Comment: Campu s: M Performed By: #### L 550.62697 #### [facility] [address] [place] [address] Platelet mean volume (Bld) [Entitic vol] 10.6 fL Normal 9.4-12.4 [facility] Comment on above: Order Comment: Campu s: M Performed By: #### L 550.38434 #### [facility] [address] [place], [place] [address] PLT 91 K/CU MM Low 150-450 [facility] Comment on above: Order Comment: Campu s: M Result Comment: Conf irmed by slide estimate. Performed By: #### L 550.67551 #### [facility] [address] [place] [address] PLT EST MOD DECREASED Normal [facility] Comment on above: Order Comment: Campu s: M Performed By: #### L 550.43579 #### [facility] [address] [place], [place] [address] POIK 1+ Normal [facility] Comment on above: Order Comment: Campu s: M Performed By: #### L 550.07861 #### [facility] [address] [place] [address] RBC 4.51 M/CU MM Normal 3.90-5.30 [facility] Comment on above: Order Comment: Campu s: M Performed By: #### L 550.01918 #### [facility] [address] [place] [address] WBC 11.4 K/CUMM High 4.5-11.0 [facility] Comment on above: Order Comment: Campu s: M Performed By: #### L 550.24827 #### [facility] [place] [address] Hung 02-18-2021 EMERGENCY PHYSICIAN REPORT This is a preliminary report only, as the practitioner review and authentication has not occurred. Normal [facility] ER PHYSICIAN ASSESSMENT RECORDS : FlexChartData Event Time: 02/17/2021 21:35 Status: Signed [facility] Yara Beth [[id number]] Attending Physician / 1960 Chart (V2b) Chart created at 02/17/2021 21:27 by Kem Watson Chart closed at 02/17/2021 21:50 Entry in Emergency Department at 02/17/2021 15:53 Patient Name: Yara Beth Record Number: [id number] Date: 02/17/2021 21:27 Entered Department at: 02/17/2021 [...] BMP, information as of 02/17/2021, 4:36 pm [facility] PATIENT NAME: YARA BETH [facility] [address] MEDICAL REC #: [id number] [place] [address] EMERGENCY DEPARTMENT REPORT EMERGENCY DEPARTMENT PHYSICIAN 135* --------+--------+--------an scott; 240* Anion Gap = 5 4.3 BUN/CREA: 17; CALCIUM TOTAL: 9.1 Mg/Dl LACTATE BLOOD, information as of 02/17/2021, 7:15 pm LACTATE BLOOD: 1.68 Mmol/L [id number], information as of 02/17/2021, 7:16 pm [id number]: Neg Imaging Study Obtained: CT NECK SOFT [...] need second opinion by ENT here at [facility]. I did speak with Dr. Saleh on-call [...] mass, hematoma versus abscess Disposition: Admitted . [facility] PATIENT NAME: YARA BETH [facility] [address] MEDICAL REC #: [id number] [place] [address] EMERGENCY DEPARTMENT REPORT EMERGENCY DEPARTMENT PHYSICIAN MSE completed. I was the primary ED attending.. I confirm that I have evaluated the patient, reviewed the mid-level providers documentation, and discussed the evaluation, plan of care and disposition of the patient with the mid-level provider.. : FlexChartData Event Time: 02/17/2021 21:35 [facility] Status: Signed [facility] Yara Beth [[id number]] Mid-Level Chart (V2b) / / 1960 Chart created at 02/17/2021 21:28 by Michael Rodriguez Chart closed at 02/17/2021 21:30 Entry in Emergency Department at 02/17/2021 15:53 Patient Name: Yara Beth Record Number: [id number] Date: 02/17/2021 21:28 Entered Department at: 02/17/2021 [...] states she was seen multiple times at [place] ER with CAT scans. She states she was told there was something wrong with her parotid gland and that she needed to follow-up with ENT. She states when she followed up with ENT she states the doctor just looked at her history of her head and stated he had never seen a thing like this before. I asked the [facility] (more content not included)... Normal [facility] GFR ESTon 02-18-2021 IF AMER 48 [facility] Comment on above: Order Comment: Campu s: M Performed By: #### L 500.29621, L500.95156, L500.16761 #### [facility] [address] [place] [address] IF non-AFR AMER 40 [facility] Comment on above: Order Comment: Campu s: M Performed By: #### L 500.58367, L500.22607, L500.31380 #### [facility] [address] [place] [address] GLUCOSE METERon 02-18-2021 Glucose [Mass/Vol] 307 mg/dL High 85-[address] [facility].IMS.ADMon 02-18-2021 Admission-H&P [facility].IMS.ADM [facility] Patient Name: YARA BETH [address] Date of : [address] [place] [id number] Unit Number: [id number] Admission-HandP Patient Status: ADM IN Attending Doctor: [...] steatosis, and thrombocytopenia who initially presented to [facility] yesterday with complaints of worsening right neck mass, at that time it was felt that she could follow-up with ENT as an outpatient very closely, she did see ENT in [place] today and additionally had an appointment scheduled [...] and she states that Dr. Newman in [place] drained greenish-olvera material and placed her on [...] airway narrowing. 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 Normal [facility] Mckenna ORon 02-18-2021 OPERATIVE REPORT Normal [facility] OR DATE OF SERVICE: 08/2020 PREOPERATIVE DIAGNOSIS: [...] in fact, dealing with perhaps a lymphoma. [facility] PATIENT NAME: YARA BETH [address] [facility] [address] MEDICAL REC #: [id number] [place] [address] ADMIT DATE: 02/18/21 DISCHARGE DATE: 02/27/21 OPERATIVE REPORT ATTENDING PHY: Melanie Hooker MD Unfortunately, she also suffers from thrombocytopenia. [...] cavity. This was entered sharply and an [facility] PATIENT NAME: YARA BETH [facility] [address] [address] MEDICAL REC #: [id number] [place] [address] ADMIT DATE: 02/18/21 DISCHARGE DATE: 02/27/21 OPERATIVE REPORT ATTENDING PHY: Melanie Hooker MD impressive amount of thick pus was [...] unremarkable fashion, taken to the post-anesthesia care [facility] PATIENT NAME: YARA BETH [facility] [address] [address] MEDICAL REC #: [id number] [place] [address] ADMIT DATE: 02/18/21 DISCHARGE DATE: 02/27/21 OPERATIVE REPORT ATTENDING PHY: Melanie Hooker MD unit. Prashant Hernandez MD /[id number] SSI File#: [id number] END OF DOCUMENT / CHANGE LOG FOLLOWS Last Edited By Elec. Signed By Prashant Hernandez MD #MILAGROSAA Prashant Hernandez MD #BREMARVA on 03/15/2021 10:03 ET on 03/15/2021 10:03 ET Revision Number - 2 Verified/Reviewed by 03/15/21 1003 YUDELKA [facility] PATIENT NAME: YARA BETH [facility] (more content not included)... [facility] PHA.NOTEon 02-18-2021 PHA.NOTE [facility] Patient Name: YARA BETH [facility] [address] Date of : [address] [place] [address] Unit Number: [id number] Pharmacy Note Patient Status: ADM IN Attending Doctor: Skyler Fregoso DO Service Date: 02/18/211951 Pharmacy Note - NAVDEEP INYUNIOR Initial Note Subjective: Pharmacy to dose vancomycin [...] Andrey Merlos - Pharmac Verified/Reviewed by 02/18/211953 [facility] Pharmacy Note [facility] PROG [facility] 02-18-2021 PROG [facility] Patient Name: YARA BETH [address] Date of : [address] [address] Unit Number: [id number] Progress Note-Hospitalist Patient Status: DEP ER Attending [...] and Time Skyler Fregoso DO Verified/Reviewed by 02/18/21 0354 [facility] Progress Note-Hospitalist [facility] US GUIDANCE FOR NEEDLE BXon 02-18-2021 US [...] M.D. Signed By: MICHAEL GRAF M.D. Normal [facility] 02-17-2021 Anion gap [Moles/Vol] 5 mmol/L Normal 5-16 [facility] Comment on above: Order Comment: Campu s: M Performed By: #### M 050.51392 #### [facility] [place] [address] Calcium [Mass/Vol] 9.1 mg/dL Normal 8.5-10.5 [facility] Comment on above: Order Comment: Campu s: M Result Comment: NOTE NEW NORMAL RANGE DUE TO REAGENT CHANGE Performed By: #### M 050.64559 #### [facility] [address] [place] [address] Chloride [Moles/Vol] 105 mmol/L Normal 98-107 [facility] Comment on above: Order Comment: Campu s: M Performed By: #### M 050.42101 #### [facility] [address] [place] [address] CO2 [Moles/Vol] 25.0 mmol/L Normal 21-32 [facility] Comment on above: Order Comment: Heidi carpenter: Gianna Performed By: #### M 050.21931 #### [facility] [address] [place] [address] Creatinine [Mass/Vol] 1.26 mg/dL High 0.510- 0.95 0 [facility] Comment on above: Order Comment: Heidi s: M Result Comment: Cori ents receiving either N-Acetylcysteine (NAC) or Metamizole prior to venipuncture, may have falsely depressed results. Performed By: #### M 050.02762 #### [facility] [address] [place] [address] Glucose [Mass/Vol] 240 mg/dL High 70-100 [facility] Comment on above: Order Comment: Heidi s: M Result Comment: 70-1 00- Normal Fasting; 100-125 Impaired Fasting; greater than 126 on more than one result- Diabetes. ADA guidelines. Results may be falsely elevated after the administration of Sulfapyridine. Results may be falsely depressed after the administration of Sulfasalazine. Performed By: #### M 050.84866 #### [facility] [address] [place] [address] Potassium [Moles/Vol] 4.3 mmol/L Normal 3.5-5.1 [facility] Comment on above: Order Comment: Heidi s: Gianna Result Comment: Slig ht Hemolysis, Result may be affected. Performed By: #### M 050.05336 #### [facility] [address] [place] [address] Sodium [Moles/Vol] 135 mmol/L Low 136-145 [facility] Comment on above: Order Comment: Heidi Katz Performed By: #### M 050.30381 #### [facility] [address] [place] [address] Urea nitrogen [Mass/Vol] 22 mg/dL Normal 7-26 [facility] Comment on above: Order Comment: Campu s: M Performed By: #### M 050.96725 #### [facility] [address] [place] [address] Urea nitrogen/Creatinine [Mass ratio] 17 mg/mg Normal 15-24 [facility] Comment on above: Order Comment: Campu s: M Performed By: #### M 050.01137 #### [facility] [place] [address] CBC W/DIFFon 02-17-2021 BASO ABS 0.00 K/CU MM Normal 0-0.2 [facility] Comment on above: Order Comment: Campu s: M Performed By: #### L 200.63090 ####[address] [address]Iy# [phone] Basophils/100 WBC (Bld) 0.3 % Normal 0-2 [facility] Comment on above: Order Comment: Campu s: M Performed By: #### L 200.73974 ####[facility] [id number] [place], [place] [address]Ph# [phone] EOS ABS 0.10 K/CU MM Normal 0-0.5 [facility] Comment on above: Order Comment: Campu s: M Performed By: #### L 200.87590 ####[facility] [id number] [place], [place] [address]Ph# [phone] Eosinophils/100 WBC (Bld) 0.4 % Normal 0-5 [facility] Comment on above: Order Comment: Campu s: M Performed By: #### L 200.95975 ####[facility] [id number] [place], [place] [address]Ph# [phone] Erythrocyte distribution width (RBC) [Ratio] 12.4 % Normal 11-14.5 [facility] Comment on above: Order Comment: Campu s: M Performed By: #### L 200.95968 ####[facility] DVSOJTKCUC[address] [place], [place] [address]Ph# [phone] Hematocrit (Bld) [Volume fraction] 46.7 % Normal 35.0-47.0 [facility] Comment on above: Order Comment: Campu s: M Performed By: #### L 200.81515 ####[address] [address]Ao# [phone] Hemoglobin (Bld) [Mass/Vol] 16.1 g/dL High 11.5-15.5 [facility] Comment on above: Order Comment: Campu s: M Performed By: #### L 200.04777 ####[place] [address]Ph# [phone] IMMATR GRAN ABS 0.10 K/CU MM Normal Less than 2 [facility] Comment on above: Order Comment: Campu s: M Performed By: #### L 200.78110 ####[place] [address]Ph# [phone] IMMATURE GRAN % 0.8 % Normal Less than 2 [facility] Comment on above: Order Comment: Campu s: M Performed By: #### L 200.63681 ####[place] [address]Ph# [phone] LYMPH ABS 1.10 K/CU MM Normal 0.9-4.4 [facility] Comment on above: Order Comment: Campu s: M Performed By: #### L 200.90716 ####[place] [address]Ph# [phone] Lymphocytes/100 WBC (Bld) 9.1 % Low 20-40 [facility] Comment on above: Order Comment: Campu s: M Performed By: #### L 200.25346 ####[facility] [id number] [place], [place] [address]Ph# [phone] MCHC (RBC) [Mass/Vol] 34.5 g/dL Normal 32.0-36.0 [facility] Comment on above: Order Comment: Campu s: M Performed By: #### L 200.61406 ####[facility] [id number] [place] [address]Eb# [phone] MCV (RBC) [Entitic vol] 94.0 fL Normal 80.0-99.0 [facility] Comment on above: Order Comment: Campu s: M Performed By: #### L 200.41870 ####[facility] [id number] [place], [place] [address]Ph# [phone] MONO ABS 0.90 K/CU MM Normal 0.1-1.1 [facility] Comment on above: Order Comment: Campu s: M Performed By: #### L 200.17146 ####[address] [address]Yi# [phone] Monocytes/100 WBC (Bld) 7.4 % Normal 2-10 [facility] Comment on above: Order Comment: Campu s: M Performed By: #### L 200.29556 ####[place] [address]Ph# [phone] NEUTROPHIL ABS 9.80 K/CU MM High 2.0-8.3 [facility] Comment on above: Order Comment: Campu s: M Performed By: #### L 200.99265 ####[facility] [id number] [place] [address]Ju# [phone] Neutrophils/100 WBC (Bld) 82.0 % High 45-75 [facility] Comment on above: Order Comment: Campu s: M Performed By: #### L 200.56831 ####[facility] [id number] [place] [address]Hy# [phone] Nucleated RBC/100 WBC (Bld) [Ratio] 0.0 % Normal Less than 1 [facility] Comment on above: Order Comment: Campu s: M Performed By: #### L 200.95927 ####[facility] [id number] [place], [place] [address]Ya# [phone] Platelet mean volume (Bld) [Entitic vol] 10.1 fL Normal 9.4-12.4 [facility] Comment on above: Order Comment: Heidi s: M Performed By: #### L 200.02546 ####[facility] [id number] [place], [place] [address]Sm# [phone] PLT 81 K/CU MM Low 150-450 [facility] Comment on above: Order Comment: Kevinu s: M Result Comment: Conf irmed by slide estimate. Performed By: #### L 200.69720 ####[place] [address] [place], [place] [address]Qm# [phone] RBC 4.97 M/CU MM Normal 3.90-5.30 [facility] Comment on above: Order Comment: Heidi s: M Performed By: #### L 200.09586 ####[facility] [id number] [place] [address]Rz# [phone] WBC 12.0 K/CUMM High 4.5-11.0 [facility] Comment on above: Order Comment: Heidi s: M Performed By: #### L 200.43653 ####[address] [address]Ke# [phone] CT NECK SOFT TISSUE WITH CON on [...] was performed concurrently and is dictated separately. Sewing Machine Repairer Helper (topogram) images: Non-diagnostic. IMPRESSION: Large 7 cm [...] Findings were communicated with Dr. Watson at 2112 on 02/17/2021 via verbal communication. This report was electronically signed by Katharina Brandt DO 02/17/2021 9:21 PM Reported By: KATHARINA BRANDT DO Signed By: KATHARINA BRANDT DO Normal [facility] GFR ESTon 02-17-2021 IF AMER 53 Normal [facility] Comment on above: Order Comment: Campu s: M Performed By: #### M 050.38577 #### [facility] [address] [place] [address] IF non-AFR AMER 44 Normal [facility] Comment on above: Order Comment: Campu s: M Performed By: #### M 050.97636 #### [facility] [address] [place] [address] LACTATE BLOODon 02-17-2021 LACTATE BLOOD 1.68 MMOL/L Normal 0.40-2.00 [facility] Comment on above: Order Comment: Campu s: M Performed By: #### L 500.09680, L500.47546, L500.43735 #### [facility] [address] [place] [address] [id number] 02-17-2021 SARS-CoV-2 (COVID-19) RNA CASA+probe Ql (Unsp spec) Negative Invalid Interpretation Code Negative [facility] Comment on above: Order Comment: Campu s: M Result Comment: RESU LTS [place] Jasmin ADAMS [place] 21002/17/21 BY MARGARITA LOPEZ Negative results do not preclude SARS-CoV-2 infection and should not be used as the sole basis for treatment or other patient management decisions. Negative results must be combined with clinical observation, patient history, and epidemiological information. This test was performed by PCR. 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 Reset acoustics to earmold settings and program 2(restaurant), 3 (crowd),and 4 (auditorium) to Best Fit. Ran feedback canceller. Gave her a wax loop to clean canal portion of earmolds. Normal [facility] AMB ENT Wage Conciliator Progress Noteon 01-14-2021 AMB ENT Wage Conciliator Progress Note Patient: YARA BETH Age: 60 years Sex: Female : 1960 Associated Diagnoses: None Author: Sandie Medina Patient is her to discuss options for hearing aids. She currently wears 2 [employer] hearing aids, from 2017 with 50 gain receivers installed and 9mm closed buds. The serial numbers are [id number] ans [id number], and she just purchased an [...] we will go ahead with new ones. [facility] AMB ENT Physician Progress N oteon 12-25-2020 [...] Measurements Systolic Blood Pressure: 121 mmHg (12/25/20 10:13:) Diastolic Blood Pressure: 79 mmHg (12/25/20::) Mean Arterial Pressure: 93 mmHg (12/25/20::) Height/Length Measured: 155 cm (12/25/20::) Weight Measured: 120 kg (12/25/20::) Body Mass Index Measured: 49.95 kg/m2 (12/25/20::) Weight Measured - lbs2: 264 lb (12/25/20::) Height/Length Measured - in2: 61 in (12/25/20::) Body Mass Index Measured English2: 49.88 kg/m2 (12/25/20::) BSA: 2.27 m2 (12/25/20::) Ht/Wt Measurement Refused by Patient?2: No (12/25/20::) Depression Screening Scores Initial Depression Screen Score: 0 (12/25/20 10:13:) Fall Risk Assessment Is the patient ambulatory (mobile): Yes (12/25/20 10:13:) Have you had a fall within the past: No (12/25/20:13:) Have you had 2 or more falls in the past: No (12/25/20 10:13:) Evaluation of the right ear reveals an [...] Perforation of right tympanic membrane H72.91 Ordered: [facility] audiometry threshold & speech recog 69538, 12/25/2020 11:32:00 EDT, Perforation of right tympanic membrane / Mixed hearing loss of right ear / Sensorineural hearing loss of left ear, 1 AMB Office/Outpt New Pt Low MDM / 30-44 min 07082, 12/25/2020 11:32:00 EDT, Perforation of right tympanic membrane / Mixed hearing loss of right ear / Sensorineural hearing loss of left ear Sandie Limon, 12/25/2020 11:32:00 EDT, Perforation of right tympanic membrane / Mixed hearing loss of right ear / Sensorineural hearing loss of left ear, 1 2. Mixed hearing loss of right ear H90.71 Ordered: AMB Comp audiometry threshold & speech recog 29352, 12/25/2020 11:32:00 EDT, Perforation of right tympanic membrane / Mixed hearing loss of right ear / Sensorineural hearing loss of left ear, 1 AMB Office/Outpt New Pt Low MDM / 30-44 min 92150, 12/25/2020 11:32:00 EDT, Perforation of right tympanic membrane / Mixed hearing loss of right ear / Sensorineural hearing loss of left ear Sandie Limon, 12/25/2020 11:32:00 EDT, Perforation of right tympanic membrane / Mixed hearing loss of right ear / Sensorineural hearing loss of left ear, 1 3. Sensorineural hearing loss of left ear H90.5 Ordered: AMB Comp audiometry threshold & speech recog 03617, 12/25/2020 11:32:00 EDT, Perforation of right tympanic membrane / Mixed hearing loss of right ear / Sensorineural hearing loss of left ear, 1 AMB Office/Outpt New Pt Low MDM / 30-44 min 85768, 12/25/2020 11:32:00 EDT, Perforation of right tympanic [...] other th (more content not included)... Normal [facility] BONE DENSITY, DEXA 1 OR MORE SITES: AXIAL Haley 08-22-2019 BONE DENSITY, DEXA 1 OR MORE SITES: AXIAL SKELETN ========= Bone Density Report ========= Height: 61.0 in Weight: 257.0 lb Fractures: Treatments: --------- Indication: Asymptomatic menopausal state Referring Provider: ANDREW FLORES Study: Bone densitometry was performed. Exam Date: August 22, 2019 Accession number: [id number] Findings: Standard measurements were obtained utilizing a [...] Electronically signed by: VU HAWK MD Normal [facility] Otheron 08-22-2019 Interpreted by: MAGGIE HAWK08/24/19 08:48 Bone Density Report ========= Height: 61.0 inWeight: 257.0 lbFractures:Treatments: --------- Indication: Asymptomatic menopausal state Referring Provider: ANDREW FLORES Study: Bone densitometry was performed. Exam Date: August 22, 2019 Accession number: [id number] Findings: Standard measurements were obtained utilizing a [...] PACS. Reported by: karie on 08/24/2019 8:35:00 AM.Electronically signed by: VU HAWK 08/24/19 08:[address] [facility] Work Phone: Comment on above: ORDER REVISED TO A B ONE DENSITY, DEXA 1 OR MORE SITES: AXIAL SKELETN BY RADIOLOGIST; Original Order Number: [id number] Mamm - Screening Mammogram w / Tomosynthesison 08-19-2019 MG Breast screening Interpreted by: DEV WYMAN08/19/19 14:42MRN: [id number] Name: YARA BETH STUDY:DIGITAL MAMM SCREENING W/ [...] signed by: DEV WYMAN 08/19/19 14:42 [facility] Work Phone: US ELASTOGRAPHY LIVER W/ABD LTDon [...] PM Sign Date: 01/05/2019 5:15:01 PM Normal [facility] ([place]) PROGRESSon 09-30-2018 Protein mass conc HNO ID: [id number] Author: Balbir Holbrook Service: ? Author Type: [...] MHz tuning fork) and protective threshold (5.07 Bode Shaheen monofilament) are intact and without focal [...] 719.47, ICD10: M25.572 Balbir Holbrook DPM Normal [facility] PROGRESSon 09-23-2018 Protein mass conc HNO ID: [id number] Author: Balbir Holbrook Service: ? Author Type: [...] MHz tuning fork) and protective threshold (5.07 Bode Shaheen monofilament) are intact and without focal [...] ICD10: M25.571, M25.572 Balbir Holbrook DPM Normal [facility] PROGRESSon 08-16-2018 Protein mass conc HNO ID: [id number] Author: Balbir Holbrook Service: (none) Author Type: [...] 755.67, ICD10: Q66.89 Balbir Holbrook DPM Normal [facility] PROGRESSon 08-06-2018 Protein mass conc HNO ID: [id number] Author: Balbir Holbrook Service: (none) Author Type: [...] 729.5, ICD10: M79.671 Balbir Holbrook DPM Normal [facility] PROGRESSon 06-30-2018 Protein mass conc HNO ID: [id number] Author: Balbir Holbrook Service: (none) Author Type: [...] 734, ICD10: M76.822 Balbir Holbrook DPM Normal [facility] Vital Signs Date Time Vital Sign Value Performing Clinician Facility 01-06-2025 14:36-0400 Body height 154.[address] Darryl Nam MD Work Phone: [facility] 01-06-2025 14:36-0400 Body mass index (BMI) [Ratio] 47.5 kg/m2 Dr. Darryl Nam MD Work Phone: [facility] 01-06-2025 14:36-0400 Body weight 113.[address] Darryl Nam MD Work Phone: [facility] 01-06-2025 14:36-0400 Diastolic blood pressure 71 mm[Hg] Dr. Darryl Nam MD Work Phone: [facility] 01-06-2025 14:36-0400 Heart rate 87 /min Dr. Darryl Nam MD Work Phone: [facility] 01-06-2025 14:36-0400 Respiratory rate 15 /min Dr. Darryl Nam MD Work Phone: [facility] 01-06-2025 14:36-0400 SaO2% (BldA) [Mass fraction] 95 % Dr. Darryl Nam MD Work Phone: [facility] 01-06-2025 14:36-0400 Systolic blood pressure 122 mm[Hg] Dr. Darryl Nam MD Work Phone: [facility] 10-03-2024 18:07-0400 Body mass index (BMI) [Ratio] 46.75 kg/m2 Diane GONZALEZ Work Phone: [facility] 10-03-2024 18:07-0400 Body weight 112.22 kg Diane Lopez MASTER OCEAN YACHT-FOLDER GLUER OPERATOR Work Phone: [facility] 10-03-2024 18:07-0400 Diastolic blood pressure 70 mm[Hg] Diane Lopez MASTER OCEAN YACHT-FOLDER GLUER OPERATOR Work Phone: [facility] 10-03-2024 18:07-0400 Heart rate 96 /min Diane Lopez MASTER OCEAN YACHT-FOLDER GLUER OPERATOR Work Phone: [facility] 10-03-2024 18:07-0400 SaO2% (BldA) [Mass fraction] 100 % Diane Lopez MASTER OCEAN YACHT-FOLDER GLUER OPERATOR Work Phone: [facility] 10-03-2024 18:07-0400 Systolic blood pressure 132 mm[Hg] Diane Lopez MASTER OCEAN YACHT-FOLDER GLUER OPERATOR Work Phone: [facility] 03-10-2024 11:34-0400 Body height 154.94 cm Preet Ch PA-C [facility] 03-10-2024 11:34-0400 Body mass index (BMI) [Ratio] 44.96 kg/m2 Preet Ch PA-C [facility] 03-10-2024 11:34-0400 Body weight 107.96 kg Preet Ch PA-C [facility] 09-29-2023 10:36-0400 Body height 154.94 cm Yobani Juarez DO [facility] 09-29-2023 10:36-0400 Body mass index (BMI) [Ratio] 44.96 kg/m2 Yobani Juarez DO [facility] 09-29-2023 10:36-0400 Body weight 107.96 kg Yobani Juarez DO [facility] 03-20-2022 11:19-0400 Diastolic blood pressure 67 mm[Hg] Darryl Nam Work Phone: RF-Kdkbxlguqytq-Yucee in [facility] [address] Work Phone: 03-20-2022 11:19-0400 Heart rate 87 /min Darryl Nam Work Phone: XX-Osvvgenmcllt-Ndtja in [address] Work Phone: 03-20-2022 11:19-0400 Systolic blood pressure 102 mm[Hg] Darrylpia Nam Work Phone: CB-Zrtuundbcpvk-Ytesz in [address] Work Phone: 03-20-2022 11:17-0400 Body temperature 97.3 [degF] Darryl Remi Nam Work Phone: YJ-Ctlvudjlorsn-Hjycr in [address] Work Phone: 03-20-2022 11:10-0400 Body height 154.94 cm Darryl Remi Nam Work Phone: RQ-Tyrtmoulugsw-Dwvfv in [address] Work Phone: 03-20-2022 11:10-0400 Body mass index (BMI) [Ratio] 47.43 kg/m2 Darryl Remi Nam Work Phone: RF-Axdghtqegdxp-Ntywz in [address] Work Phone: 03-20-2022 11:10-0400 Body surface area Derived from formula 2.08 m2 Darryl Khalil Killian Work Phone: CU-Ijfuelebaoyg-Skakr in [address] Work Phone: 03-20-2022 11:10-0400 Body weight 113.85 kg Darryl Remi Nam Work Phone: KI-Qwfndtxcywvm-Kkzqy in [address] Work Phone: 01-09-2022 10:23-0400 Body height 154.94 cm Darryl Khalil Nam Work Phone: PD-Cbokfegjdgbv-Fvwft in [address] Work Phone: 01-09-2022 10:23-0400 Body mass index (BMI) [Ratio] 47.05 kg/m2 Darryl Nam Work Phone: IX-Hhttlceptnwi-Jtcyt in [place] [address] [facility] Work Phone: 01-09-2022 10:23-0400 Body surface area Derived from formula 2.07 m2 Darrylpia Nam Work Phone: OU-Bpxhonikqqpk-Rmbze in [address] Work Phone: 01-09-2022 10:23-0400 Body temperature 97.2 [degF] Darryl Remi Nam Work Phone: XF-Rwqwvzafheja-Feakl in [address] Work Phone: 01-09-2022 10:23-0400 Body weight 112.95 kg Darryl Remi Nam Work Phone: JZ-Safkfqhgqcgs-Liiho in [address] Work Phone: 01-09-2022 10:23-0400 Diastolic blood pressure 69 mm[Hg] Darryl Remi Nam Work Phone: XJ-Sbninerrrikm-Awfqf in [address] Work Phone: 01-09-2022 10:23-0400 Heart rate 91 /min Darrylpia Nam Work Phone: SF-Oxbdvrkxovbd-Qlzbs in [address] Work Phone: 01-09-2022 10:23-0400 Respiratory rate 18 /min Darrylpia Nam Work Phone: MM-Yetwdsekywed-Ytaqe in [address] Work Phone: 01-09-2022 10:23-0400 Systolic blood pressure 102 mm[Hg] Darryl Remi Nam Work Phone: KL-Fgarsezewdno-Vltlh in [address] Work Phone: 01-09-2022 10:23-0400 0 1 Darryl Remi Nam Work Phone: AD-Wnoskypabnal-Ltccc in [facility] [address] [facility] Work Phone: Comment on above: [employer] 09-23-2021 10:45-0400 Body height 154.94 cm Darryl Nam Work Phone: [facility] Work Phone: 09-23-2021 10:45-0400 Body mass index (BMI) [Ratio] 47.8 kg/m2 Darryl Remi Nam Work Phone: [facility] Work Phone: 09-23-2021 10:45-0400 Body surface area Derived from formula 2.09 m2 Darryl Remi Nam Work Phone: [facility] Work Phone: 09-23-2021 10:45-0400 Body weight 114.76 kg Darryl Remi Nam Work Phone: [facility] Work Phone: 09-23-2021 10:45-0400 Diastolic blood pressure 80 mm[Hg] Darryl Remi Nam Work Phone: [facility] Work Phone: 09-23-2021 10:45-0400 Systolic blood pressure 130 mm[Hg] Darryl Remi Nam Work Phone: [facility] Work Phone: 09-23-2021 10:45-0400 0 1 Darryl Remi Nam Work Phone: [facility] Work Phone: Comment on above: GRAV PARA 08-12-2019 15:50-0500 BMI (Body Mass Index) 48.94 kg/m2 [facility] Work Phone: 08-12-2019 15:50-0500 Body weight 117.48 kg Nadeem Lopez [facility] Work Phone: 08-12-2019 15:50-0500 BP Diastolic 62 mm[Hg] Nadeem Lopez -[facility] Work Phone: 08-12-2019 15:50-0500 BP Systolic 120 mm[Hg] Nadeem Lopez -[facility] Work Phone: 08-12-2019 15:50-0500 BSA (Body Surface Area) 2.11 m2 Nadeem Lopez -[facility] Work Phone: 08-12-2019 15:50-0500 Height 154.94 cm Nadeem Lopez -[facility] Work Phone: 08-12-2019 15:50-0500 0 1 Nadeem Lopez [facility] Work Phone: Comment on above: Para Encounters Encounter Date Encounter Type Care Provider Facility Start: 01-06-2025 End: 01-06-2025 Patient encounter procedure Margarita CLAUDIO -[facility] Work Phone: Start: 01-06-2025 End: 01-06-2025 ambulatory Margarita Swenson Facility:[facility] Start: 12-16-2024 End: 12-16-[address] Darryl Nam MD Work Phone: -[facility] Start: 12-16-2024 End: 12-16-[address] [facility] Work Phone: Start: 12-16-2024 End: 12-16-2024 ambulatory Darryl Nam Facility:[facility] Start: 12-12-2024 End: 12-12-[address] Darryl Nam MD Work Phone: -[facility] Start: 12-12-2024 End: 12-12-[address] Darryl Nam MD -Laboratory [facility] Start: 12-12-2024 End: 12-12-2024 ambulatory Darryl Nam Facility:[facility] Start: 10-03-2024 End: 10-03-2024 Office outpatient new 30 minutes Dianeremi Lopez MASTER OCEAN YACHT-FOLDER GLUER OPERATOR Work Phone: [facility] Comment on above: Non-recurrent acute serous otitis media of both ears (Primary Dx) Start: 09-16-2024 ambulatory [facility] Start: 09-08-2024 ambulatory Yobani Juarez [facility] Start: 09-06-2024 ambulatory Yobani Juarez [facility] Start: 08-09-2024 ambulatory ITA KING Fac ility:[id number] Start: 08-09-2024 End: 08-09-2024 Subsequent hospital visit by physician Ct Prep [facility] Work Phone: Radiology CT Scan Comment on above: Other microscopic he maturia [R31.29] Start: 07-18-2024 End: 07-18-2024 ambulatory Darryl Nam Facility:[facility] Start: 06-08-2024 End: 06-08-2024 ambulatory Darryl Nam Facility:[facility] Start: 05-13-2024 End: 05-13-2024 ambulatory [facility] Facility:[facility] Start: 04-21-2024 End: 04-21-2024 Encounter identifier Yobani Juarez Work Phone: [facility] Start: 04-21-2024 ambulatory Yobani Juarez [facility] Start: 04-14-2024 End: 04-14-2024 Encounter identifier Yobani Juarez Work Phone: [facility] Start: 04-14-2024 ambulatory Yobani Juarez [facility] Start: 03-14-2024 End: 03-14-2024 ambulatory Darryl Nam Facility:[facility] Start: 03-10-2024 End: 03-10-2024 Office outpatient visit 15 minutes Preet Ch Work Phone: [facility] [place] Start: 02-15-2024 End: 02-15-2024 ambulatory Darryl Nam Facility:[facility] Start: 01-27-2024 End: 01-27-2024 Encounter identifier Yobani Juarez Work Phone: [facility] [place] Start: 12-14-[address] [facility] Start: 12-14-2023 End: 12-14-2023 Subsequent hospital visit by physician Xr [facility] Comment on above: Personal history of urinary calculi [Z87.442] Start: 11-12-2023 End: 11-12-2023 Encounter identifier Yobani Carpenter Juarez Work Phone: [facility] Start: 11-12-2023 End: 11-12-2023 Office outpatient visit 15 minutes Yobani S Juarez Work Phone: [facility] Start: 10-23-2023 End: 10-23-2023 Encounter identifier Yobani Juarez Work Phone: [place] [facility] Start: 10-16-2023 End: 10-16-2023 Office outpatient visit 25 minutes Yobani Madie Juarez Work Phone: [facility] [place] Start: 10-08-2023 End: 10-08-2023 Encounter identifier Yobani Juarez Work Phone: [facility] [place] Start: 09-29-2023 End: 09-29-2023 Office outpatient new 45 minutes Yobanidorothea Juarez Work Phone: [facility] [place] Start: 09-07-2023 End: 09-07-2023 ambulatory [facility] Work Phone: Start: 09-07-2023 End: 09-07-2023 Patient encounter procedure [facility] Start: 06-29-2023 End: 06-29-2023 ambulatory [facility] Work Phone: Start: 06-29-2023 End: 06-29-2023 Patient encounter procedure [facility] Start: 06-18-2023 End: 06-18-2023 Emergency department patient visit DARRYL NAM [facility] Start: 03-10-2023 Rx Renewal Darryl Nam Work Phone: BQ-Kbamqejomuyzyizp-Zzuyr [facility] Work Phone: Start: 01-19-[address] Mathieu Baca Fa cility:[id number] Start: 12-08-2022 End: 12-08-2022 Subsequent hospital visit by physician Xr [facility] Comment on above: Personal history of urinary calculi [Z87.442] Start: 06-25-2022 End: 06-25-2022 ambulatory [facility] Work Phone: Start: 06-25-2022 End: 06-25-2022 Patient encounter procedure [facility] Start: 04-17-2022 Chart Update Darryl Nam Work Phone: LU-Tcoaapeddewllzlt-Rvcqc in [facility] Work Phone: Start: 04-11-2022 AUDIT Darryl Nam Work Phone: NB-Zwymavqvbepfggin-Uywzn [facility] Work Phone: Start: 04-11-2022 End: 04-11-2022 ambulatory MD WENDY OLVERA Facility:[facility] Start: 03-20-2022 ambulatory MD WENDY OLVERA Facility:[id number] Start: 03-20-2022 Current tobacco non-user cad cap copd pv dm Darryl Nam Work Phone: IN-Albrzxoaozxc-Ooghaml [facility] [address] [facility] Work Phone: Start: 01-28-2022 Chart Update Darryl Nam Work Phone: HF-Pdeyeolifrqfqsvt-Uzclp [facility] Work Phone: Start: 01-27-2022 ambulatory MD WENDY OLVERA Facility:[id number] Start: 01-20-2022 Chart Update Darryl Nam Work Phone: KX-Yrswegowdeaidhkn-Igtrw [facility] Work Phone: Start: 01-09-2022 Office consultation new/estab patient 80 min Darryl Nam Work Phone: RD-Xqdqkfvxmzbdpnci-Vzwlt [facility] Work Phone: Start: 01-09-2022 Patient encounter procedure Darryl Nam Work Phone: [facility] Work Phone: Start: 12-05-2021 End: 12-05-2021 Patient encounter procedure [facility] Start: 11-08-2021 End: 11-08-2021 Patient encounter procedure [facility] Start: 10-25-2021 Chart Update Darryl Remi Killian Work Phone: [facility] Work Phone: Start: 10-01-2021 AUDIT Darryl Nam Work Phone: [facility] Work Phone: Start: 07-23-2021 End: 07-23-2021 Patient encounter procedure [facility] Start: 08-12-2019 Patient encounter procedure Nadeem Jessica [facility] Work Phone: Start: 07-26-2018 Patient encounter procedure [facility] Work Phone: Encounter for gynecological examination (general) (routine) without abnormal findings Darryl Nam Work Phone: [facility] Work Phone: Patient encounter status Darryl Nam Work Phone: [facility] Work Phone: Procedures Date Procedure Procedure Detail [...] umol/Lwith a mean of 396 umol/L.Performed at: [address] [id number] Director: Jeronimo Fontenot PhD, Phone: [phone] Start: 12-12-2024 Vitamin D, 25-hydroxy measurement Dr. Jo Ann Nam MD Work Phone: Comment on above: Vitamin D StatusDeficiency: <20 ng/mL (5 0nmol/L)Insufficiency: 20-30 ng/mL (50-75 nmol/L)Sufficiency: 30-100 ng/mL (75-250 nmol/L)Toxicity: >100 ng/mL (>250 nmol/L) Start: 10-23-2023 End: 10-23-2023 Injection hip arthrography w/o anesthesia Yboani Juarez DO Start: 10-08-2023 End: 10-08-2023 MRI Lwr Ext Joint wo Contrast Yobani cohn DO Start: 06-18-2023 CT CERVICAL SPINE WO IV CONTRAST DARRYL MIR OTERO Start: 06-18-2023 CT HEAD WO IV CONTRAST DARRYL NAM Start: 06-18-2023 XR FEMUR LEFT 2+ VIEWS DARRYL NAM Start: 06-18-2023 XR PELVIS 1-2 VIEWS DARRYL NAM Start: 06-18-2023 XR SHOULDER LEFT 2+ VIEWS DARRYL NAM Start: 10-25-2021 Mammography Diane Lopez APRN-FOLDER GLUER OPERATOR Work Phone: Start: 08-12-2019 MG Breast screening Nadeem Lopez Start: 08-12-2019 Xray Bone Density, Dexa 1 or More Sites Nadeem Lopez Start: 07-26-2018 Microscopic observation [Identifier] in Cervix by Cyto stain Diane Lopez APRN-FOLDER GLUER OPERATOR Work Phone: Start: 07-25-2017 Colonoscopy [facility] Start: 03-06-2010 Esophagogastroduodenoscopy Darryl Nam Work Phone: Start: 07-02-2009 Cholecystectomy Laparoscopic Darryl Chen h Work Phone: Start: 05-24-2009 Colposcopy Cervix With Biopsy(S) With Endocervical Curettage Darryl Nam Work Phone: Start: 07-03-2006 Mammography [facility] End: 03-06-2010 Esophagogastroduodenoscopy Nadeem angelo History of Cervical Loop Electrosurgical Excision (LEEP) Nadeem Lopez Comment on above: x 2; End: 07-02-2009 History of Cholecystectomy Laparoscopic Nadeem Lopez End: 05-24-2009 History of Colposcopy Cervix With Biopsy(S) With Endocervical Curettage Nadeem Lopez History of Ear Press ure Equalization Tube Nadeem Lopez History of [place] sty For Cleft Palate Nadeem Lopez Lithotripsy Nadeem Lopez Procedure on neck Darryl Remi harrison Work Phone: Plan of Treatment Date Care Activity Detail Author Start: 04-30-2030 DTaP/Tdap/Td Vaccine s (3 - Td or Tdap) DTaP/Tdap/Td Vaccines (3 - Td or Tdap) [facility] Start: 04-30-2030 Urine microalbumin profile DTaP,Tdap,Td Vaccine (3 - Td or Tdap) [facility] Start: 01-13-2027 Screening for malign ant neoplasm of colon [facility] Start: 04-11-2025 Diabetes mellitus screening Diabetes Screening [facility] Start: 09-06-2024 Yara Beth LT HIP [facility] Work Phone: Start: 03-10-2024 Follow-up encounter Suman Beth LEFT HIP FOLLOW UP [facility] Work Phone: Start: 09-29-2023 MRI Hip WO Con trast ([id number]), Sent on: [facility] Start: 06-22-2023 Behavioral Health Screening Behavioral Health Screening [facility] Start: 10-25-2022 Screening for malign ant neoplasm of breast [facility] Start: 2022 RSV High Risk: (Elde rly (60+) or Population) (1 - Risk 60-74 years 1-dose series) RSV High Risk: (Elderly (60+) or Population) (1 - Risk 60-74 years 1-dose series) [facility] Start: 2022 RSV Vaccine (1 - 1-d ose 60+ series) RSV Vaccine (1 - 1-dose 60+ series) [facility] Start: 2022 RSV Vaccine (1 - Ris k 60-74 years 1-dose series) RSV Vaccine (1 - Risk 60-74 years 1-dose series) [facility] Start: 06-22-2022 DEPRESSION ASSESSMENT DEPRESSION ASS ESSMENT [facility] Start: 04-11-2022 EGD, Provider: Wendy Olvera, Status: Pen, Time: 10:40 AM EGD, Provider: Wendy Olvera, Status: Pen, Time: 10:40 AM HU-Urkcrivmqmapcvkj-N [address] [place] Work Phone: Start: 03-20-2022 FUV, Provider: Wendy Olvera, Status: Pen, Time: 11:00 AM FUV, Provider: Wendy Olvera, Status: Pen, Time: 11:00 AM KQ-Uzidasrbbpjb-Bmjwf in [address] Work Phone: Start: 01-20-2022 TESTING, Provider: TRINY [address],MG GASTRO, Status: Pen, Time: 10:00 AM TESTING, Provider: TRINY [address],MG GASTRO, Status: Pen, Time: 10:00 AM OZ-Adfgacgyprqv-Hnzrh in [address] Work Phone: Start: 07-26-2021 Screening for malign ant neoplasm of cervix [facility] Start: 05-29-2021 Hemoglobin A1c measurement HbA1C [facility] Start: 05-29-2021 Hemoglobin A1c/Hemoglobin.total in Blood HBA1C [facility] Start: 08-12-2019 MG Breast screening Mamm - Scr eening Mammogram w/ Tomosynthesis [facility] Work Phone: Start: 08-12-2019 Xray Bone Dens ity, Dexa 1 or More Sites -[facility]Niyah moreno Work Phone: Start: 01-13-2018 Screening for malign ant neoplasm of colon [facility] Start: 10-09-2013 PNEUMOCOCCAL (2 - PCV) PNEUMOC OCCAL (2 - PCV) [facility] Start: 05-07-2013 Screening for malign ant neoplasm of breast Mammogram Screening [facility] Start: 2012 SHINGRIX VACCINE (1 of 2) SHINGRIX VACCINE (1 of 2) [facility] Start: 2007 COLOGUARD (FIT-DNA) COLOGUARD (FIT-D NA) [facility] Start: 2007 Colonoscopy COLONOSCOPY [facility] Start: 2007 COLORECTAL CANCER SCREENING COLORECTAL CANCER SCREENING [facility] Start: [address] COLONOGRAPHY [facility] Start: 2007 FECAL OCCULT BLOOD FECAL OCCULT BLOO D [facility] Start: 2007 Screening for malign ant neoplasm of colon [facility] Start: 2007 SIGMOIDOSCOPY SIGMOIDOSCOPY [facility] Start: 07-03-2007 Mammography MAMMOGRAM [facility] Start: 1992 HPV TESTING HPV TESTING [facility] Start: 1983 PAP TESTING PAP TESTING [facility] Start: 1983 Screening for malign ant neoplasm of cervix [facility] Start: 1981 Urine microalbumin profile DTAP,TDAP,TD (1 - Tdap) [facility] Start: 1980 ANNUAL PCP 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 ANNUAL PCP TEAM CHRONIC DISEASE VISIT [facility] Start: 1980 Anxiety Screening Anxiety Screening [facility] Start: 1980 BP CONTROLLED (<130/80) BP CON TROLLED (<130/80) [facility] Start: 1980 Depression Screening Depression Scre ening [facility] Start: 1980 Hepatitis B surface antibody level LDL CHOLESTEROL [facility] Start: 1980 HEPATITIS C SCREENING HEPATITIS C [facility] Start: 1980 Hepatitis C screening Hepatitis C [facility] Start: 1980 HIV SCREENING HIV SCREENING [facility] Start: 1980 HIV screening HIV Screening [facility] Start: 1980 SPIROMETRY SPIROMETRY [facility] Start: 1972 3 comp foot exam completed DIABETIC FOOT EXAM [facility] Start: 1972 Diabetic foot examination Diabetic Foot Exam [facility] Start: 1972 Glaucoma screening Dilated Retinal E xam [facility] Start: 1972 Hepatitis B screening URINE ALBUMIN:CREATININE RATIO [facility] Start: 1972 Hepatitis C antibody , confirmatory test DILATED RETINAL EXAM [facility] Start: 1962 HIV screening HIV Screening [facility] Start: 1962 Lipid panel Lipid Panel [facility] Start: 1962 Screening for malign ant neoplasm of colon [facility] Start: 1962 Yearly Adult Physical Yearly Adult P [facility] Alpha 1 antitrypsin [Mass/volume] in Serum or Plasma [facility] Kvume-[id number]-sydxumbxlpf. tumo r marker [Units/volume] in Serum or Plasma [facility] Basic metabolic 2008 panel with ionized calcium - Serum or Plasma [facility] Ceruloplasmin [Mass/volume] in Serum or Plasma [facility] Cytoplasmic ANCA Screen [place] Erythrocyte mean corpuscular volume determination [facility] Ferritin [Mass/volum e] in Serum or Plasma [facility] Gamma glutamyl transferase measurement [facility] Hematocrit [Volume Fraction] of Blood [facility] Hemoglobin [Mass/vol ume] in Blood [facility] Hepatic function panel [facility] Hepatitis A virus Ab [Presence] in Serum [facility] Hepatitis B virus co re Ab [Presence] in Serum [facility] Hepatitis B virus surface Ab [Presence] in Serum [facility] Hepatitis C antibody measurement [facility] IgA [Mass/volume] in Serum or Plasma [facility] Iron and Iron bindin g capacity panel - Serum or Plasma [facility] Leukocytes [#/volume ] in Blood [facility] Liver stiffness by US.transient elastography [facility] Mean corpuscular hemoglobin concentration determination [facility] Mean corpuscular hemoglobin determination [facility] Mitochondria Ab [Presence] in Serum [facility] Neutrophil count [facility] Neutrophil percent differential count [facility] Platelets [#/volume] in Blood [facility] Procedure [facility] Prothrombin time [facility] Red blood cell count [facility] Red cell distributio n width determination [facility] Smooth muscle Ab [Presence] in Serum [facility] Tissue transglutamin ase IgA Ab [Units/volume] in Serum [facility] NEGATED: Highlighted row has been ruled out! Planned Goals not documented [facility] Work Phone: Immunizations Immunization Date Immunization Notes Care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
[2025-01-09 15:08] LABS: ANTINUCLEAR ANTIBODIES DIRECT Negative (Negative)
[2025-01-10 08:09] LABS: Anti-Smooth Muscle ABS 13 Units (0-19); Cytoplasmic Ab (C-ANCA) <1:20 titer (Neg:<1:20); GGTP 72 IU/L (0-60); Immunoglobulin A 369 mg/dL (87-352); Perinuclear Ab (P-ANCA) <1:20 titer (Neg:<1:20)
== END | disposition home or self-care (01) ==
LOC: LAB 15:26
PROVIDERS: PCP Family Medicine; Referring Provider Nurse Practitioner Acute Care; Visit Provider Nurse Practitioner Acute Care
DX: K74.60 Unspecified cirrhosis of liver (principal); E11.9 Type 2 diabetes mellitus without complications; D69.6 Thrombocytopenia, unspecified
CPT/HCPCS: 36415; 80048; 80076; 82105; 82390; 82728; 82784; 82977; 83516; 83540; 83550; 85610; 86037; 86038; 86225; 86235; 86704; 86706; 86708; 86803; 87340

== ENCOUNTER → 2025-01-18 | Outpatient (CLI) | payer BC, SELFPAY ==
--- NOTE | 2025-01-18 09:13 | US_ITS ---
PROCEDURE: ABD LIMITED W/ ELASTOGRAPHY REASON FOR EXAM: CIRRHOSIS COMPARISON: Prior study dated December 19, 2019. TECHNIQUE: Right upper quadrant abdominal ultrasound. Hector ElastQ Imaging shear wave elastography for non-invasive assessment of liver tissue stiffness. Hector EPIQ Elite. FINDINGS: LIVER: Size: Unremarkable Length: 16.9 cm Echotexture: Coarsened Contour: Nodular Lesions: None identified Elastography: EQI Med: 17.8 kPa EQI Med Jadiel: 2.42 m/s IQR/Med: 21 %* GALLBLADDER: Surgically absent. COMMON BILE DUCT: Normal measuring 3.5 mm . PANCREAS: Normal Visualized portions of the right kidney are unremarkable. There is a 1.3 cm x 1.4 cm x 1.3 cm right renal cyst. No right upper quadrant ascites. Splenomegaly. The spleen measures 19.1 cm x 9.1 cm 9.2 cm. US/ABD Limited w/ Elastography IMPRESSION: SEVERE HEPATIC FIBROSIS / CIRRHOSIS Splenomegaly. Small right renal cyst. Reference Values: SRU <1.37 m/s (5.7kPa): No to mild fibrosis 1.37 m/s - 2.2 m/s: Moderate to severe fibrosis >2.2 m/s (15kPa): Significant fibrosis / cirrhosis METAVIR Score F2 or higher: 1.34 m/s (5.7kPa) F3 or higher: 1.55 m/s (7.3kPa) F4: 1.80 m/s (10kPa) * If the IQR/Med is >30%, the variance in the measurements is a large and the a ccuracy of the measurement may be in question. Reading Location: [id number]
== END | disposition home or self-care (01) ==
PROVIDERS: PCP Family Medicine; Referring Provider Nurse Practitioner Acute Care; Visit Provider Nurse Practitioner Acute Care
DX: K74.60 Unspecified cirrhosis of liver (principal); E11.9 Type 2 diabetes mellitus without complications; D69.6 Thrombocytopenia, unspecified
CPT/HCPCS: 76705; 76981

== ENCOUNTER 2025-02-09 05:09 | Day surgery (SDC) | payer BC, SELFPAY ==
--- NOTE | 2025-02-07 16:50 | PAT.ANESEVAL ---
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 When Was Last Pacemaker Check QUESTION #4 FULL TEXT: You/Your Family Experience fever (hyperthermia) with Anesthesia Last Oral Intake Last Oral intake: Last Oral Intake NPO since Meds taken in AM with sips of water? Meds patient instructed to take am of surgery PONV PONV - tufting supervisor: PONV - tufting supervisor Female Yes 02/07/25 15:43 HX of Motion Sickness Yes 02/07/25 15:43 HX of N/V After Surgery Yes 02/07/25 15:43 Non-Smoker Yes 02/07/25 15:43 Duration of Surgery greater No 02/07/25 15:43 than 60 minutes Number of Risk Factors 4 02/07/25 15:43 PONV Score Severe Risk 02/07/25 15:43 Height & Weight Height & Weight: Anesthesia: Height & Weight Height 5 ft 1 in 01/06/25 14:36 Respiratory Assessment Respiratory Assessment - tufting supervisor: Respiratory Tract Infection Hx - tufting supervisor Hx Respiratory Tract Infection No 02/07/25 15:43 STOP Sleep Apnea STOP Sleep Apnea - tufting supervisor: STOP Sleep Apnea - tufting supervisor Hx Hypertension No 02/07/25 15:43 Hx Sleep Apnea Yes 02/07/25 15:43 CPAP Yes: NON-COMPLIANT 02/07/25 15:43 BIPAP No 02/07/25 15:43 Do you snore loudly (louder than talking or can be heard Do you often feel tired/ fatigued/ sleepy during daytime? Has anyone observed you stop breathing during sleep? STOP Results Positive 02/07/25 15:43 QUESTION #5 FULL TEXT : Do you snore loudly (louder than talking or can be heard through closed doors)? 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 Specify any problems Hx of Preganancy in last 3 No 02/07/25 15:43 Months Nurse Filling Out Transfusion MGRIFFITH 02/07/25 15:43 & Questions: Date: 02/07/25 02/07/25 15:43 Time: 15:46 02/07/25 15:43 Patient unable to answer at this time (ie. 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 Kidney stones Diabetes 1.5, managed as type 2 Back problem Allergies Colonoscopy planned 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 Hearing deficit Home Medications ?Medication ?Instructions ?Recorded ?Last Taken ?Type sitagliptin phosphate 25 mg tablet 50 mg PO DAILY 07/24/20 02/07/25 History albuterol sulfate 90 mcg/actuation 1 - 2 puff inhalation Q4H PRN 02/05/21 Unknown History aerosol inhaler Shortness Of Breath Or Wheezing budesonide-formoterol HFA 160 2 puff inhalation BID 02/05/21 Unknown History mcg-4.5 mcg/actuation aerosol inhaler pantoprazole 40 mg tablet,delayed 40 mg PO DAILY 02/05/21 Unknown History release cholecalciferol (vitamin D3) 25 25 mcg PO QDAY 01/06/25 Unknown History mcg (1,000 unit) capsule peg 3350-electrolytes 236 240 ml PO Q10M #4,000 mL 01/06/25 Unknown Rx gram-22.74 gram-6.74 gram-5.86 gram solution (Golytely) semaglutide 1 mg/dose (4 mg/3 mL) 1 mg subcut TU 01/06/25 01/31/25 History subcutaneous pen injector (Ozempic) Allergy/AdvReac Type Severity Reaction Status Date / Time meperidine (From Demerol) AdvReac Severe Unknown Verified 02/07/25 15:37 adhesive tape AdvReac Intermediate skin Verified 02/07/25 15:37 breakdown Family History Father COPD (chronic obstructive pulmonary disease) Anemia Depression Heart disease Skin cancer Mother Heart disease Hypertension Hypocalcemia Seizures Psychiatric diagnosis Depression Epilepsy Osteoporosis Surgical History (Updated 02/07/25 @ 15:43 by Brina Miramontes) History of esophagogastroduodenoscopy (EGD) History of colonoscopy History of lithotripsy History of excision of lesion History of corrected cleft lip and palate H/O dilation and curettage H/O LEEP S/P cholecystectomy Social History Smoking Status: Never smoker alcohol intake: current details: 6 to 10 drinks a year substance use type: does not use Audit: Pertinent Findings Pertinent Findings Additional pertinent findings: Patient has a history of thrombocytopenia. She has had low platelets for several months. The patient's recent value is 44 which is relatively in range with her previous numbers. As long as the GI physician is okay proceeding given his/her plans for the procedure it should be okay to proceed. The patient has elevated glucose levels. Her hemoglobin A1c from 2 months ago showed a value of 6.4. The patient likely has an increased value due to stress and should be covered with sliding scale insulin during this time. The risk of the procedure is extremely low. Recommendation Anesthesia Recommendation Anesthesia recommendation: OPTIMIZED for anesthesia
[2025-02-09] VITALS (9 sets, daily range): BP systolic 103–136; BP diastolic 66–92; PULSE 88–94; RESP 16–95; TEMP 36.1–37.1; O2SAT 93–98; BMI 47.0
--- OUTSIDE RECORDS SUMMARY | 2025-02-09 05:13 | XMS RPT_ITS | CCD ---
Author Organization [facility] ion [facility] Care Team Providers Care Chief Information Security Officer Name Role Phone Nadeem Lopez Unavailable Unavailable Andrew Flores Unavailable Unavailable Darryl Nam Unavailable Unavailable Marcya, Antoaneta Unavailable Unavailable Nadeem Lopez Unavailable Unavailable Justin, Antoaneta I Unavailable Unavailable Darryl Nam Unavailable Unavailable Unavailable Unavailable Unavailable Darryl Nam MD A Primary Care Provider MD WENDY OLVERA Attending Dr. Darryl Cesar A Primary Care Unavailable MD WENDY OLVERA Attending MD WENDY Soliman Referring Unavailab Dr. Darryl Cabral A Primary Care Unavailable Dr. Mathieu Baca Attending MD WENDY Maldonado Referring Unavailab Dr. Darryl Cabral A Primary Care Unavailable MD WENDY OLVERA Admitting UnavailMD WENDY García Attending Unavailab MD WENDY Romero Referring Unavailab Dr. Darryl Cabral A Primary Care Unavailable Juarez DO, Yobani Unavailable Unavailable Juarez DO, Yobani Unavailable Unavailable Juarez DO, Yobani Unavailable Unavailable Juarez DO, Yobani Unavailable Unavailable Juarez DO, Yobani Unavailable Unavailable Darryl Nam MD A Primary Care Provider [phone] ITA KING Referring Unavailable DARRYL NAM Primary Care Unavailable Juarez DO, Yobani Unavailable Unavailable DARRYL NAM Primary Care Unavailable Preet Ch PA-C Unavailable Unavailable Juarez DO, Yobani Unavailable Unavailable Juarez DO, Yobani Unavailable Unavailable ELLY, CHRISTOPHER S Referring Unavailable NAM, DARRYL A Primary Care Unavailable ELLY, CHRISTOPHER S Referring Unavailable NAM, DARRYL A Primary Care Unavailable Juarez, Yobani S Attending [...] Provider Killian PETTY, Dr. Cheema Attending Provider [phone] Dr. Darryl Nam MD Referring Provider [phone] Messi CANDY WRAPPING MACHINE OPERATOR-CMargarita Attending Provider Messi CANDY WRAPPING MACHINE OPERATOR-CMargarita Referring Provider Nam, Darryl Attending Unavailable Nam, Darryl Referring Unavailable Nam, Darryl Primary Care Unavailable Nam, Darryl Attending Unavailable Nam, Darryl Primary Care Unavailable Nam, Darryl Attending Unavailable Nam, Darryl Referring Unavailable Nam, Darryl Primary Care Unavailable Nam, Daryrl Attending Unavailable Nam, Darryl Referring Unavailable Nam, Darryl Primary Care Unavailable Nam, Darryl Referring Unavailable Nam, Darryl Attending Unavailable Nam, Darryl Primary Care Unavailable Nam, Darryl Attending Unavailable Nam, Darryl Primary Care Unavailable Nam, Darryl Referring Unavailable Nam, Darryl Primary Care Unavailable Graham Quintero Attending Unavailable Nam, Darryl Referring Unavailable Nam, Darryl Primary Care Unavailable Messi, Margarita Attending Unavailable Nam, Darryl Referring Unavailable Nam, Darryl Primary Care Unavailable Nam, Darryl Attending Unavailable Nam, Darryl Primary Care Unavailable Messi, Margarita Attending Unavailable Messi, Margarita Referring Unavailable Nam, Darryl Primary Care Unavailable Messi, Margarita Attending Unavailable Messi, Margarita Referring Unavailable Allergies Allergy Classification Reported Allergen(s) Allergy Type Date of Onset Reaction(s) Facility (20 sources) Meperidine; Translations: [Demerol TABS] Drug Allergy 06-28-19 Unknown, Hallucinations [facility] Comment on above: MENTAL CHANGES CRAZ Y,MEAN- ANXIETY (11 sources) Adhesive Tape; Translations: [adhesive tape] Propensity to adverse reactions 02-06-20 skin breakdown [facility] Comment on above: coverlet bandaid-rub berized bandaid (6 sources) Meperidine; Translations: [MEPERIDINE (PF)] Drug Allergy 10-09-[address] [facility] (6 sources) Pethidine analog; Translations: [OPIOIDS-MEPERI DINE AND RELATED] Propensity to adverse reactions 12-22-[address] [facility] (4 sources) Coverlet [Other] Propensity to adverse reactions 12-22-[address] [facility] (5 sources) Meperidine; Translations: [MEPERIDINE] Drug Allergy 06-28-19 [facility] Other [facility] (2 sources) OTHER; Translations: [OTHER] Propensity to adverse reactions (disorder) 12-22-19 [facility] Other [facility] Medications Current Medications Medication Drug Class(es) [...] 10-29-2020 Azelastine 205 .5 mcg (0.15 %) [place],Non-Aerosol Active 1 NMA INTRANASAL TWICE A DAY February 05, 2021 12:00am Budesonide-Formoterol (10 sources) Corticosteroid, beta2-Adrenergic Agonist Start: 02-05-2021 take [...] as needed. cholecalciferol 0.025 mg oral capsule (12 sources) Vitamin D Start: 01-07-20 take 1 capsule by mouth once daily Cholecalciferol (Vitamin D3) 25 mcg (1,000 unit) capsule Active 25 ug PO daily January 06, 2025 12:00am Start: 09-28-2023 take [address] [facility] once daily Vitamin D3 25 mcg (1,000 unit) capsule TAKE ONE CAPSULE BY MOUTH EVERY DAY - Active ciprofloxacin 500 mg oral tablet (4 sources) Quinolone Antimicrobial Start: 08-13-2017 take 1 tablet by mouth twice daily ciprofloxacin HCl (CIPRO) 500 mg tablet Take 1 tablet by mouth twice daily. 6 tablet 08/13/2017 Active Comment on above: Take 1 tablet by [facility] twice daily. 0.5 ml dulaglutide [...] Start: 10-29-2020 Fluticasone Pr opionate 50 mcg/actuation [place],Suspension Active 2 NMA INTRANASAL DAILY February 05, [...] February 05, 2021 12:00am polyethylene glycol 3350 660632 mg / potassium chloride 2970 mg / sodium bicarbonate 6740 mg / sodium chloride 5860 mg / sodium sulfate 70510 mg powder for oral solution (3 sources) Osmotic Laxative Start: 01-07-20 Peg 3350-Electrolytes (Golytely) 236-22.74-6.74 -5.86 gram recon [...] 6 hours as needed for Nausea/Vomiting. Psyllium (10 sources) Start: 02-06-20 take 1 [tsp_us] by [...] A DAY February 05, 2021 12:00am Semaglutide (3 sources) Start: 01-06-2025 Semaglutide (Ozempic) 1 mg/dose (4 [...] daily Quantity: 30 Refills: 5 Ordered: 20-Mar-2022 Gonsalo Olvera MDh Start : 02-Sep-2021 Active Start: 09-02-2021 Spironolactone [...] / HYDROcodone bitartrate 5 mg oral tablet (10 sources) Opioid Agonist Start: 02-05-2021 End: 01-06-2025 [...] / oxyCODONE hydrochloride 5 mg oral tablet (10 sources) Opioid Agonist Start: 07-31-2020 End: 08-04-2020 [...] mg / clavulanate 125 mg oral tablet (10 sources) Penicillin-class Antibacterial Start: 02-02-2021 End: 02-05-2021 [...] Longer Active clindamycin 300 mg oral capsule (20 sources) Lincosamide Antibacterial Start: 02-05-2021 End: 01-06-2025 [...] 300 mg PO THREE TIMES A DAY July 31, 2020 1:00am August 23, 2020 3:38pm Iron TABS (2 sources) Iron TABS Refill s: 0 DO Active Iron TABS Refill s: 0 Active ferrous sulfate 325 mg oral tablet (10 sources) Start: 08-27-2017 End: 01-06-2025 take 1 [...] ml insulin glargine 100 unt/ml pen injector (11 sources) Insulin Analog Start: 10-20-2022 End: 09-29-2023 [...] Da te Episodic/Chronic Acute and chronic tonsillitis (10 sources) Acute tonsillitis; Translations: [Acute tonsillitis, unspecified] [...] 12-15-2016 07-30-2020 Chronic Deficiency and other anemia (10 sources) Pancytopenia; Translations: [Other pancytopenia] 09-02-2018 Chronic Deficiency and other anemia (10 sources) Anemia; Translations: [Anemia, unspecified] 09-02-2018 Episodic Deficiency and other anemia (10 sources) Iron deficiency anemia; Translations: [Iron deficiency [...] 02-05-2021 Episodic Diseases of white blood cells (10 sources) Leukopenia; Translations: [Decreased white blood cell [...] Problem Lis t Migration; 2012-12-12; Moved to [facility] May 14 2013 4:03PM; Essential hypertension (18 sources) Hypertensive disorder; Translations: [Unspecified essential hypertension] Onset: 03-20-2017 03-20-2017 Chronic Fluid and electrolyte disorders (14 sources) Hypokalemia; Translations: [Hypopotassemia] Episodic Gastritis and duodenitis (20 sources) Erosive gastritis; Translations: [Other specified gastritis, without mention of hemorrhage] 07-30-2020 Episodic Gastrointestinal hemorrhage (20 sources) Melena; Translations: [Blood in stool] 07-30-2020 Episodic Hepatitis (14 sources) Nonalcoholic steatohepatitis; Translations: [Other chronic nonalcoholic liver disease] Chronic Immunity disorders (10 sources) Polyclonal gammopathy; 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] [...] and gas pain] Episodic Other gastrointestinal disorders (10 sources) Splenomegaly; Translations: [Splenomegaly, not elsewhere classified] 07-30-2020 Episodic Other liver diseases (20 sources) Steatosis of liver; Translations: [Other chronic nonalcoholic liver disease] 07-30-2020 Chronic Other liver diseases (9 sources) Non-alcoholic fatty liver; Translations: [Other chronic nonalcoholic liver disease] Chronic Other liver diseases (16 sources) Cirrhosis of liver; Translations: [Cirrhosis of [...] Onset: 05-07-2012 01-06-2025 Episodic Other skin disorders (10 sources) Actinic keratosis; Translations: [Actinic keratosis] 08-11-2020 Episodic Comment on above: 5 mm actinic lesion right lateral forehead Other skin disorders (10 sources) Keratosis; Translations: [Epidermal thickening, unspecified] 08-01-2020 Episodic Comment on above: 3 mm hyperkeratosis and actinic lesion right upper lip by perialar area Other upper respiratory infections (12 sources) Sinusitis; Translations: [Unspecified sinusitis (chronic)] Chronic Other upper respiratory infections (2 sources) Sinusitis; Translations: [Sinusitis] Episodic Otitis media and related conditions (12 sources) Otitis media; Translations: [Otitis media, unspecified, [...] female climacteric states] Episodic Residual codes; unclassified (10 sources) Family history of malignant neoplasm of [...] Classification Problem Date Documented Da te Episodic/Chronic Genitourinary symptoms and ill-defined conditions (20 sources) Blood in urine; Translations: [Urinary symptoms ] Onset: 08-03-2024 07-30-2020 Episodic Intracranial injury (2 sources) Concussion without loss of consciousness, initial encounter; Translations: [Concussion without loss of consciousness, initial encounter] Onset: 06-18-2023 Episodic Nausea and vomiting (1 source) Vomiting, unspecified; Translations: [Vomiting, unspecified] Onset: 07-07-2024 Episodic Other aftercare (1 source) 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; Translations: [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] Onset: 04-11-2022 Episodic Other aftercare (1 source) shelter (current) use of oral 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 drugs; Translations: [shelter (current) use of oral 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 drugs] Onset: [...] Test Name Value Interpretation Reference Range Facility ABD Limited w/ Elastographyo n 01-18-2025 ABD Limited w/ Elastography [facility] Imaging Services [address] [place], [place] [id number] ABD Limited w/ Elastography MR#: [id number] Acct: [id number] Name: YARA BETH Rep #: [id number] : 1960 F 64 From: Mac funez MD PCP: Dr. Darryl Nam MD Status: REG CLI Study: ABD Limited w/ Elastography Date of Exam: 12/22 Exam# [id number] Ordering Dr: Margarita Swenson CANDY WRAPPING MACHINE OPERATOR- C PROCEDURE: ABD LIMITED W/ ELASTOGRAPHY REASON FOR EXAM: CIRRHOSIS COMPARISON: Prior study dated December 19, 2019. TECHNIQUE: Right upper quadrant abdominal ultrasound. [employer] ElastQ Imaging shear wave elastography for non- invasive assessment of liver tissue stiffness. [employer]ector EPIQ Elite. FINDINGS: LIVER: Size: Unremarkable Length: 16.9 cm Echotexture: Coarsened Contour: Nodular Lesions: None identified Elastography: EQI Med: 17.8 kPa EQI Med Jadiel: 2.42 m/s IQR/Med: 21 %* GALLBLADDER: Surgically absent. COMMON BILE DUCT: Normal measuring 3.5 mm . PANCREAS: Normal Visualized portions of the right kidney are unremarkable. There is a 1.3 cm x 1.4 cm x 1.3 cm right renal cyst. No right upper quadrant ascites. Splenomegaly. The spleen measures 19.1 cm x 9.1 cm 9.2 cm. US/ABD Limited w/ Elastography IMPRESSION: SEVERE HEPATIC FIBROSIS / CIRRHOSIS Splenomegaly. Small right renal cyst. Reference Values: SRU <1.37 m/s (5.7kPa): No to mild fibrosis 1.37 m/s - 2.2 m/s: Moderate to severe fibrosis >2.2 m/s (15kPa): Significant fibrosis / cirrhosis METAVIR Score F2 or higher: 1.34 m/s (5.7kPa) F3 or higher: 1.55 m/s (7.3kPa) F4: 1.80 m/s (10kPa) * If the IQR/Med is >30%, the variance in the measurements is a large and the accuracy of the measurement may be in question. Reading Location: [id number] CC: GONZÁLEZ Swenson; Dr. Darryl Nam MD Bus Person Dishwasher: Signed Normal [facility] BREANNE w/ Reflex Mult Confirmon 01-11-2025 ANTI-DNA (DS)AB TNP Normal [facility] Comment on above: Performed By: #### M 100.2200 #### [facility] [address] [place], [address] ANTI-SS-A TNP Normal [facility] Comment on above: Performed By: #### M 100.2200 #### [facility] [address] [place], [address] ANTI-SS-B TNP Normal [facility] Comment on above: Performed By: #### M 100.2200 #### [facility] [address] [place], [address] AFP, Tumor Markeron 01-11-20 25 AFP TUMOR ALYSE 3.2 ng/mL Normal 0.0-9.2 [facility] Comment on above: Order Comment: N Result Comment: [employer] Electrochemiluminescence Immunoassay (ECLIA) Values obtained with different assay methods or kits cannot be used interchangeably. Results cannot be interpreted as absolute evidence of the presence or absence of malignant disease. This test is not interpretable in females. Performed By: #### L 300.3900, L3410.2920, L3300.1200, L3300.0700, L3890.6301, L3890.6202, L800.1280, L500.3400, L501.5101, L3100.5450, L3410.9992, L503.6550, L3400.0700, L500.2500, L3200.1400, L3100.0460, L3890.6102, L3100.0300, L503.6030, L803.2200 ####[facility] [address] [place], [place], [id number] ANCAon 01-10-2025 Atypical pANCA <1:20 Normal Neg:<1:20 [facility] Comment on above: Result Comment: The atypical pANCA pattern has been observed in a significant percentage of patients with ulcerative colitis, primary sclerosing cholangitis and autoimmune hepatitis. Performed By: #### L 300.3900, L3410.2920, L3300.1200, L3300.0700, L3890.6301, L3890.6202, L800.1280, L500.3400, L501.5101, L3100.5450, L3410.9992, L503.6550, L3400.0700, L500.2500, L3200.1400, L3100.0460, L3890.6102, L3100.0300, L503.6030, L803.2200 ####[facility] [address] [place], [address] Cytoplasmic Ab <1:20 Normal Neg:<1:20 [facility] Comment on above: Performed By: #### L 300.3900, L3410.2920, L3300.1200, L3300.0700, L3890.6301, L3890.6202, L800.1280, L500.3400, L501.5101, L3100.5450, L3410.9992, L503.6550, L3400.0700, L500.2500, L3200.1400, L3100.0460, L3890.6102, L3100.0300, L503.6030, L803.2200 ####[facility] [address] [place], [address] Perinuclear Ab. <1:20 Normal Neg:<1:20 [facility] Comment on above: Result Comment: The presence of positive fluorescence exhibiting P-ANCA or C-ANCA patterns alone is not specific for the diagnosis of Gwen's Granulomatosis (WG) or microscopic polyangiitis. Decisions about treatment should not be based solely on ANCA IFA results. The International ANCA Group Consensus recommends follow up testing of positive sera with both KY- 3 and MPO-ANCA enzyme immunoassays. As many as 5% serum samples are positive only by EIA. Ref. AM J Clin Pathol 1999;111:507-513. Performed By: #### L 300.3900, L3410.2920, L3300.1200, L3300.0700, L3890.6301, L3890.6202, L800.1280, L500.3400, L501.5101, L3100.5450, L3410.9992, L503.6550, L3400.0700, L500.2500, L3200.1400, L3100.0460, L3890.6102, L3100.0300, L503.6030, L803.2200 ####[facility] [address] [facility] [place], [address] Anti-Smooth Muscle ABSon ANTISMOOTH MUSC 13 Units Normal 0-19 [facility] Comment on above: Result Comment: Nega tive 0 - 19 Weak positive 20 - 30 Moderate to strong positive >30 Actin Antibodies are found in 52-85% of patients with autoimmune hepatitis or chronic active hepatitis and in 22% of patients with primary biliary cirrhosis. Performed By: #### L 300.3900, L3410.2920, L3300.1200, L3300.0700, L3890.6301, L3890.6202, L800.1280, L500.3400, L501.5101, L3100.5450, L3410.9992, L503.6550, L3400.0700, L500.2500, L3200.1400, L3100.0460, L3890.6102, L3100.0300, L503.6030, L803.2200 ####[facility] [address] [facility] [place], [address] Ceruloplasminon 01-10-2025 CERULOPLASMIN 20.8 mg/dL Normal 19.0-39.0 [facility] Comment on above: Performed By: #### L 300.3900, L3410.2920, L3300.1200, L3300.0700, L3890.6301, L3890.6202, L800.1280, L500.3400, L501.5101, L3100.5450, L3410.9992, L503.6550, L3400.0700, L500.2500, L3200.1400, L3100.0460, L3890.6102, L3100.0300, L503.6030, L803.2200 ####[facility] [address] [place], [place], [id number] Hepatitis A AB, Totalon 12-21 HEPATITIS A,TOT Negative Normal Negative [facility] Comment on above: Result Comment: Comm ent: The HAV total antibody assay detects both IgG and IgM but does not differentiate between them. A negative result suggests susceptibility to infection. A positive result could be due to vaccination, previously resolved infection or active infection. Testing for HAV IgM should be performed if active HAV infection is suspected. [employer] offers profiles that will automatically reflex positive HAV total antibody results to IgM (e.g., panel #[id number] HAV Antibody w/ Rfx). Performed at: [facility] [address] [id number] Well Testing Operator: Jeronimo Fontenot PhD, Phone: [phone] Performed By: #### L 300.3900, L3410.2920, L3300.1200, L3300.0700, L3890.6301, L3890.6202, L800.1280, L500.3400, L501.5101, L3100.5450, L3410.9992, L503.6550, L3400.0700, L500.2500, L3200.1400, L3100.0460, L3890.6102, L3100.0300, L503.6030, L803.2200 ####[facility] [address] [facility] [place], [address] Hepatitis B Core Ab Totalon 01-10-2025 HEP B CORE,TOT Negative Normal Negative [facility] Comment on above: Performed By: #### L 300.3900, L3410.2920, L3300.1200, L3300.0700, L3890.6301, L3890.6202, L800.1280, L500.3400, L501.5101, L3100.5450, L3410.9992, L503.6550, L3400.0700, L500.2500, L3200.1400, L3100.0460, L3890.6102, L3100.0300, L503.6030, L803.2200 ####[facility] [address] [place], [place], [id number] Immunoglobulin Aon 5 IMMUNOGLOB A QN 369 mg/dL High 87-352 [facility] Comment on above: Order Comment: N Performed By: #### L 300.3900, L3410.2920, L3300.1200, L3300.0700, L3890.6301, L3890.6202, L800.1280, L500.3400, L501.5101, L3100.5450, L3410.9992, L503.6550, L3400.0700, L500.2500, L3200.1400, L3100.0460, L3890.6102, L3100.0300, L503.6030, L803.2200 ####[facility] [address] [place], [place], [address] L3410.9992on 01-10-2025 [facility] Misc. COMMENT Normal . [facility] Comment on above: Order Comment: 13226 9ELF Result Comment: Test Ordered: [id number] Enhanced Liver Fibrosis (ELF) ELF(TM) Score 12.88 [H ] BN Reference Range: <9.80 ELF(TM) Score Interpretation: Risk cut-offs to assess the likelihood of progression to cirrhosis and liver-related clinical events within 3.9 years following baseline ELF score (IQR: 14.0-22.4 months)*: Lower risk < 9.80 Mid risk 9.80 - 11.29 Higher risk >11.29 Note: The ELF(TM) Score is a unitless numerical value. *Chris SA, Martin VW, Shai T, et al. Selonsertib for patients with bridging fibrosis or compensated cirrhosis due to SCHERER: Results from randomized phase III STELLAR trials. J Hepatol. 2020 Dec;73(1):26-39. Performed at: [facility] [address] [id number] Well Testing Operator: Abraham Saeed MD, Phone: [phone] Performed at: [facility] [address] [id number] Well Testing Operator: Jeronimo Fontenot PhD, Phone: [phone] Performed By: #### L 300.3900, L3410.2920, L3300.1200, L3300.0700, L3890.6301, L3890.6202, L800.1280, L500.3400, L501.5101, L3100.5450, L3410.9992, L503.6550, L3400.0700, L500.2500, L3200.1400, L3100.0460, L3890.6102, L3100.0300, L503.6030, L803.2200 ####[facility] [address] [place], [place], [id number] L501.5101on 01-10-2025 GGTP 72 IU/L Abnormal 0-60 [facility] Comment on above: Performed By: #### L 300.3900, L3410.2920, L3300.1200, L3300.0700, L3890.6301, L3890.6202, L800.1280, L500.3400, L501.5101, L3100.5450, L3410.9992, L503.6550, L3400.0700, L500.2500, L3200.1400, L3100.0460, L3890.6102, L3100.0300, L503.6030, L803.2200 ####[facility] [address] [place], [place], [id number] t-Transglutaminase IgAon tTG IGA <2 Normal 0-3 [facility] Comment on above: Result Comment: Nega tive 0 - 3 Weak Positive 4 - 10 Positive >10 Tissue Transglutaminase (tTG) has been identified as the endomysial antigen. Studies have demonstr- ated that endomysial IgA antibodies have over 99% specificity for gluten sensitive enteropathy. Performed By: #### L 300.3900, L3410.2920, L3300.1200, L3300.0700, L3890.6301, L3890.6202, L800.1280, L500.3400, L501.5101, L3100.5450, L3410.9992, L503.6550, L3400.0700, L500.2500, L3200.1400, L3100.0460, L3890.6102, L3100.0300, L503.6030, L803.2200 ####[facility] [address] [place], [address] Anti-Mitochondrial ABon 07- ANTIMITOCHON AB <20.0 Normal 0.0-20.0 [facility] Comment on above: Result Comment: Nega tive 0.0 - 20.0 Equivocal 20.1 - 24.9 Positive >24.9 Mitochondrial (M2) Antibodies are found in 90-96% of patients with primary biliary cirrhosis. Performed By: #### L 300.3900, L3410.2920, L3300.1200, L3300.0700, L3890.6301, L3890.6202, L800.1280, L500.3400, L501.5101, L3100.5450, L3410.9992, L503.6550, L3400.0700, L500.2500, L3200.1400, L3100.0460, L3890.6102, L3100.0300, L503.6030, L803.2200 ####[facility] [address] [place], [address] Anion gap in Serum or Plasma Ordered By: Margarita Swenson on 01-06-2025 Anion gap [Moles/Vol] 11 mmol/L - [facility] BUN/creatinine ratioOrdered By: Margarita Swenson on 01-06-2025 Urea nitrogen/Creatinine [Mass ratio] 10.6 mg/mg 04-10 [facility] Basic Metabolic Profile (BMP )on 01-06-2025 BUN/CRE 10.6 RATIO Normal 04-10 [facility] Comment on above: Performed By: #### M 100.2200 #### [facility] [address] [place], [address] Calcium [Mass/Vol] 9.1 mg/dL Normal 7.6-11.0 [facility] Comment on above: Performed By: #### M 100.2200 #### [facility] [address] [place], [address] Chloride [Moles/Vol] 107 mmol/L Normal 98-108 [facility] Comment on above: Performed By: #### M 100.2200 #### [facility] [address] [place], [address] CO2 [Moles/Vol] 22.4 mmol/L Normal 21.0-32.0 [facility] Comment on above: Performed By: #### M 100.2200 #### [facility] [address] [place], [address] Creatinine [Mass/Vol] 1.21 mg/dL High 0.70-1.20 [facility] Comment on above: Performed By: #### M 100.2200 #### [facility] [address] [place], [address] GAP 11 Normal 11-03 [facility] Comment on above: Performed By: #### M 100.2200 #### [facility] [address] [place], [address] GFR/1.73 sq M.predicted among non-blacks MDRD (S/P/Bld) [Vol rate/Area] 51 mL/min/{1.73_m2} Low >60 [facility] Comment on above: Result Comment: mL/m in/1.73m2 CKD-EPI Creatinine Equation (2020) Performed By: #### M 100.2200 #### [facility] [address] [place], [address] Glucose [Mass/Vol] 264 mg/dL High 70-99 [facility] Comment on above: Performed By: #### M 100.2200 #### [facility] Laboratory [address] [place], [address] Potassium [Moles/Vol] 3.8 mmol/L Normal 3.3-5.1 [facility] Comment on above: Performed By: #### M 100.2200 #### [facility] [address] [place], [address] Sodium [Moles/Vol] 140 mmol/L Normal 133-145 [facility] Comment on above: Performed By: #### M 100.2200 #### [facility] [address] [place], [address] Urea nitrogen [Mass/Vol] 13 mg/dL Normal 4-19 [facility] Comment on above: Performed By: #### M 100.2200 #### [facility] [address] [place], [address] Bilirubin directOrdered By: Margarita Swenson on 01-06-2025 Bilirubin.direct [Mass/Vol] 0.74 mg/dL High 0.00-0.30 [facility] Bilirubin, totalOrdered By: Margarita Swenson on 01-06-2025 Bilirubin [Mass/Vol] 1.86 mg/dL High 0.00-1.30 [facility] Carbon dioxide, total [Moles /volume] in Central venous bloodOrdered By: Margarita Swenson on 01-06-2025 CO2 [Moles/Vol] 22.4 mmol/L 21.0-32.0 [facility] Chloride assayOrdered By: Scot Swenson on 01-06-2025 Chloride [Moles/Vol] 107 mmol/L 98-108 [facility] Ferritinon 01-06-2025 Ferritin [Mass/Vol] 51 ng/mL Normal 22-378 [facility] Comment on above: Performed By: #### M 100.2200 #### [facility] [address] [place], [place], [id number] Gamma glutamyl transferase ( GGT) measurementOrdered By: Margarita Swenson on 01-06-2025 Amylase [Catalytic activity/Vol] 72 U/L High 0-60 [facility] Gastroenterology Visit Repor ton 01-06-2025 Gastroenterology Visit Report [facility]astroenterology [address] [place] [address] OFFICE VISIT Date of Service: 01/06/25 MR#: [id number] Acct: [id number] Name: YARA BETH Remi Rep #: [id number] : 1960 Provider: GONZÁLEZ johnston Age/Sex: 64/F Location: [facility] [place] [place] Status: Signed Intake Vital Signs 02/05/21 12:07 01/06/25 14:36 Height 5 ft 1 in 5 ft 1 in Weight: 251 lb 4 oz BMI 47.5 BP 122/71 H Blood Pressure Location Rt brachial Position Sitting Respiration 15 Pulse 87 Pulse Source Monitor Pulse Oximetry (%) 95 Oxygen Delivery Method room air Intake Visit Reasons: HEPATIC CIRRHOSIS Chief Complaint: levels keep dropping Allergies meperidine (From Demerol) Adverse Reaction (Severe, Verified 01/06/25 14:39) Unknown adhesive tape Adverse Reaction (Intermediate, Verified 01/06/25 14:39) skin breakdown Medications ???Medication ???Instructions ???Recorded ???Confirmed ???Type sitagliptin phosphate 25 mg tablet 50 mg PO DAILY 07/24/20 01/06/25 History albuterol sulfate 90 mcg/actuation 1 - 2 puff inhalation Q4H PRN 01/06/25 History aerosol inhaler Shortness Of Breath Or Wheezing azelastine 205.5 mcg (0.15 %) 1 spray intranasal BID 02/05/21 History nasal spray budesonide-formoterol HFA 160 2 puff inhalation BID 02/05/21 History mcg-4.5 mcg/actuation aerosol inhaler fluticasone propionate 50 2 spray intranasal DAILY 02/05/21 01/06/25 History mcg/actuation nasal spray,suspension pantoprazole 40 mg tablet,delayed 40 mg PO DAILY 02/05/21 01/06/25 History release cholecalciferol (vitamin D3) 25 25 mcg PO QDAY 01/06/25 01/06/25 H istory mcg (1,000 unit) capsule peg 3350-electrolytes 236 240 ml PO Q10M #4,000 mL 01/06/25 01/06/25 Rx gram-22.74 gram-6.74 gram-5.86 gram solution (Golytely) semaglutide 1 mg/dose (4 mg/3 mL) 1 mg subcut QWEEK 01/06/25 History subcutaneous pen injector (Ozempic) Nurse's Note: Patient is here due to being referred SCHERER, she has had it for about 10 years she stated she was seeing a oncologist, but when covid happened her blood counts have stabilized and she stopped seeing . Her counts dropped severely in 3 days and that is when they told her they wanted her to see Dr. Snider. Patient is not currently having any other symptoms. 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 Kidney stones Diabetes 1.5, managed as type 2 Back problem Allergies Colonoscopy planned 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 Hearing deficit Surgical History History of excision of lesion History of corrected cleft lip and palate H/O dilation and curettage H/O LEEP S/P cholecystectomy Family History Father COPD (chronic obstructive pulmonary disease) Anemia Depression Heart disease Skin cancer Mother Heart disease Hypertension Hypocalcemia Seizures Psychiatric diagnosis Depression Epilepsy Osteoporosis Social History Smoking Status: Never smoker alcohol intake: current details: 6 to 10 drinks a year substance use type: does not use HPI HPI Chief Complaint: levels keep dropping Details: YARA BETH, is a 64 F who presents to the office today for cirrhosis. Oncology Prog Note 2019 58-year-old female with slowly progressive pancytopenia for several years Her anemia is most consistent with chronic liver disease, splenomegaly-hyperspleni sm and chronic iron deficiency anemia, improved with long-term oral iron supplement 1 tablet daily. Her leukopenia with preserved neutrophil count at this time not clinically significant. Her thrombocytopenia is moderately severe and is mostly manifested by easy bruising and gum bleeds with trauma of brushing. A bone marrow biopsy to rule out an indolent primary bone marrow disease was never done for completion of workup. 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 Normal [facility] Glomerular filtration rate ( GFR) estimation/1.73 sq m using serum, plasma, or whole bOrdered By: Margarita Swenson on 01-06-2025 GFR/1.73 sq M.predicted among non-blacks MDRD (S/P/Bld) [Vol rate/Area] 51 mL/min/{1.73_m2} Low >60 [facility] Comment on above: mL/min/1.73m2 CKD-EP I Creatinine Equation (2020) Hepatitis B Surface Antibody on 01-06-2025 HEP B Surf Ab Non-Reactive Normal [facility] Comment on above: Result Comment: <8.5 mIU/mL: Non-Reactive 8.5<= x <11.5 mIU/mL: Indeterminate >=11.5 mIU/mL: Reactive Non Reactive: Inconsistent with immunity less than <10 mIU/mL Reactive: Consistent with immunity greater than or equal to 10 mIU/mL Performed By: #### L 300.3900, L3410.2920, L3300.1200, L3300.0700, L3890.6301, L3890.6202, L800.1280, L500.3400, L501.5101, L3100.5450, L3410.9992, L503.6550, L3400.0700, L500.2500, L3200.1400, L3100.0460, L3890.6102, L3100.0300, L503.6030, L803.2200 ####[facility] [address] [place], [address] Hepatitis C Antibodyon 01-06 Hepatitis C Ab Non-Reactive Normal Nonreactive [facility] Comment on above: Result Comment: Reac tive: Presumptive evidence of antibodies to HCV. Follow CDC recommendations for supplemental testing. Non-Reactive: Antibodies to HCV were not detected; does not exclude the possibility of exposure to HCV Reactive Results are presumptive evidence of antibodies to HCV. Follow CDC recommendations for supplemental testing. Order confirmation testing: HCV Quant by PCR testing - HCVPCR #[id number] Non Reactive: < 0.8 Equivocal: >/= 0.8 to < 1.0 Reactive: >/= 1.0 The CDC requires that a reactive/equivocal HCV antibody result be sent out for confirmation. HCV Quant by PCR testing. Performed By: #### L 300.3900, L3410.2920, L3300.1200, L3300.0700, L3890.6301, L3890.6202, L800.1280, L500.3400, L501.5101, L3100.5450, L3410.9992, L503.6550, L3400.0700, L500.2500, L3200.1400, L3100.0460, L3890.6102, L3100.0300, L503.6030, L803.2200 ####[facility] [address] [place], [address] International normalized rat io (INR) calculationOrdered By: Margarita Swenson on 01-06-2025 INR Coag (Bld) [Relative time] 1.2 {INR} [facility] Iron measurement (mass/mass) Ordered By: Margarita Swenson on 01-06-2025 Iron (Unsp spec) [Mass/Mass] 115 ug/dL 50-170 [facility] Iron+Iron Binding Capacityon 01-06-2025 Iron [Mass/Vol] 115 ug/dL Normal 50-170 [facility] Comment on above: Performed By: #### M 100.2200 #### [facility] [address] [place], [address] IRON SATURATION 45.0 Normal 13-59 [facility] Comment on above: Performed By: #### M 100.2200 #### [facility] [address] [place], [address] TIBC 255 ug/dL Normal 250-450 [facility] Comment on above: Performed By: #### M 100.2200 #### [facility] [address] [place], [address] UIBC 140 ug/dL Low 228-428 [facility] Comment on above: Performed By: #### M 100.2200 #### [facility] [address] [place], [address] L3890.6102on 01-06-2025 HEP B Surf Ag Non-Reactive Normal Nonreactive [facility] Comment on above: Result Comment: Reac tive: Presumptive evidence of HBV. Repeatedly reactive samples must be confirmed using a neutralization test ([employer] HBsAg Confirmatory Test) Non-Reactive: HBsAg not detected; does not exclude the possibility of exposure to HBV Performed By: #### M 100.2200 #### [facility] [address] [place], [address] Laboratory - Chemistry and C hemistry - challengeOrdered By: Margarita Swenson on 01-06-2025 AST [Catalytic activity/Vol] 37 U/L High <32 [facility] - Microbiology an d Antimicrobial susceptibilityOrdered By: Margarita Swenson on 01-06-2025 HBV surface Ag Ql (S) Non-Reactive Nonreactive [facility] Comment on above: Reactive: Presumptiv e evidence of HBV. Repeatedly reactive samples must be confirmed using a neutralization test ([employer] HBsAg Confirmatory Test)Non-Reactive: HBsAg not detected; does not exclude the possibility of exposure to HBV Liver Profileon 01-06-2025 Albumin [Mass/Vol] 3.2 g/dL Low 3.4-4.8 [facility] Comment on above: Performed By: #### M 100.2200 #### [facility] [address] [place], [address] ALK PHOS 127 U/L High 35-104 [facility] Comment on above: Performed By: #### M 100.2200 #### [facility] [address] [place], [address] ALT [Catalytic activity/Vol] 19 U/L Normal <=34 [facility] Comment on above: Performed By: #### M 100.2200 #### [facility] [address] [place], [address] AST [Catalytic activity/Vol] 37 U/L High <=31 [facility] Comment on above: Performed By: #### M 100.2200 #### [facility] [address] [place], [address] Bilirubin [Mass/Vol] 1.86 mg/dL High 0.00-1.30 [facility] Comment on above: Performed By: #### M 100.2200 #### [facility] [address] [place], [address] Bilirubin.direct [Mass/Vol] 0.74 mg/dL High 0.00-0.30 [facility] Comment on above: Performed By: #### M 100.2200 #### [facility] [address] [place], [id number] Globulin (S) [Mass/Vol] 2.4 g/dL Normal 2.2-4.2 [facility] Comment on above: Performed By: #### M 100.2200 #### [facility] [address] [place], [address] (111 T PROT 5.7 g/dL Low 5.9-8.4 [facility] Comment on above: Performed By: #### M 100.2200 #### [facility] [address] [place], [address] No Panel InformationOrdered By: Margarita Swenson on 01-06-2025 Unsaturated Iron Binding Capacity 140 ug/dL Low 228-428 [facility] Potassium measurement (mass/ volume)Ordered By: Margarita Swenson on 01-06-2025 Potassium (Unsp spec) [Mass/Vol] 3.8 mmol/L 3.3-5.1 [facility] Prothrombin Time w/INRon INR Coag (PPP) [Relative time] 1.2 {INR} Normal [facility] Comment on above: Performed By: #### M 100.2200 #### [facility] [address] [place], [place], [id number] (509 PT Coag (PPP) [Time] 15.1 s High 11.7-14.9 [facility] Comment on above: Performed By: #### M 100.2200 #### [facility] [address] [place], [address] Prothrombin timeOrdered By: Margarita Swenson on 01-06-2025 PT Coag (PPP) [Time] 15.1 s High 11.7-14.9 [facility] Serum DNA double strand anti body assay (units/volume)Ordered By: Margarita Swenson on 01-06-2025 DNA double strand Ab Qn (S) [facility] Comment on above: Test not performed Serum Scl-70 antibody assay (units/volume)Ordered By: Margarita Swenson on 01-06-2025 SCL-70 extractable nuclear Ab Qn (S) [facility] Comment on above: Test not performed Serum classic neutrophil cyt oplasmic antibody assay (units/volume)Ordered By: Margarita Swenson on 01-06-2025 Neutrophil cytoplasmic Ab.classic Qn (S) <1:20 titer Neg:<1:20 [facility] Serum creatinine measurement (mass/volume)Ordered By: Margarita Swenson on 01-06-2025 Creatinine [Mass/Vol] 1.21 mg/dL High 0.70-1.20 [facility] Serum globulin measurementOr dered By: Margarita Swenson on 01-06-2025 Globulin (S) [Mass/Vol] 2.4 g/dL 2.2-4.2 [facility] Serum glucose measurement (m ass/volume)Ordered By: Margarita Swenson on 01-06-2025 Glucose [Mass/Vol] 264 mg/dL High 70-99 [facility] Serum hepatitis B virus core antibody detectionOrdered By: Margarita Swenson on 01-06-2025 HBV core Ab Ql (S) Negative Negative [facility] Serum hepatitis B virus surf john antibody detectionOrdered By: Margarita Swenson on 01-06-2025 HBV surface Ab Ql (S) Non-Reactive [facility] Comment on above: <8.5 mIU/mL: Non-[place] ctive8.5<= x <11.5 mIU/mL: Indeterminate>=11.5 mIU/mL: Reactive Non Reactive: Inconsistent with immunity less than <10 mIU/mL Reactive: Consistent with immunity greater than or equal to 10 mIU/mL Serum mitochondria antibody detectionOrdered By: Margarita Swenson on 01-06-2025 Mitochondria Ab Ql (S) <20.0 Units 0.0-20.0 [facility] Comment on above: Negative 0.0 - 20.0 Equivocal 20.1 - 24.9 Positive >24.9Mitochondrial (M2) Antibodies are found in 90-96% ofpatients with primary biliary cirrhosis. Serum or plasma IgA measurem ent (mass/volume)Ordered By: Margarita Swenson on 01-06-2025 IgA [Mass/Vol] 369 mg/dL High 87-352 [facility] Serum or plasma actin IgG an tibody assay (units/volume)Ordered By: Margarita Swenson on 01-06-2025 Actin IgG Qn 13 Units 0-19 [facility] Comment on above: Negative 0 - 19 Weak positive 20 - 30 Moderate to strong positive >30 Actin Antibodies are found in 52-85% of patients with autoimmune hepatitis or chronic active hepatitis and in 22% of patients with primary biliary cirrhosis. Serum or plasma alanine ritter otransferase (ALT) measurementOrdered By: Margarita Swenson on 01-06-2025 ALT [Catalytic activity/Vol] 19 U/L <35 [facility] Serum or plasma albumin sera urement (mass/volume)Ordered By: Margarita Swenson on 01-06-2025 Albumin [Mass/Vol] 3.2 g/dL Low 3.4-4.8 [facility] Serum or plasma alkaline kathleen sphatase measurementOrdered By: Margarita Swenson on 01-06-2025 ALP [Catalytic activity/Vol] 127 U/L High 35-104 [facility] Serum or plasma calcium sera urement (mass/volume)Ordered By: Margarita Swenson on 01-06-2025 Calcium [Mass/Vol] 9.1 mg/dL 7.6-11.0 [facility] Serum or plasma ferritin susanne surement (mass/volume)Ordered By: Margarita Swenson on 01-06-2025 Ferritin [Mass/Vol] 51 ng/mL 22-378 [facility] Serum or plasma iron saturat ion measurement (mass fraction)Ordered By: Margarita Swenson on 01-06-2025 Iron saturation [Mass fraction] 45.0 % 13-59 [facility] Serum or plasma urea nitroge n measurement (mass/volume)Ordered By: Margarita Swenson on 01-06-2025 Urea nitrogen [Mass/Vol] 13 mg/dL 4-19 [facility] Serum perinuclear neutrophil cytoplasmic antibody titer by immunofluorescenceOrdered By: Margarita Swenson on 01-06-2025 Neutrophil cytoplasmic Ab.perinuclear IF (S) [Titer] <1:20 titer Neg:<1:20 [facility] Comment on above: The presence of posi tive fluorescence exhibiting P-ANCA orC-ANCA patterns alone is not specific for the diagnosis ofWegener's Granulomatosis (WG) or microscopic polyangiitis.Decisions about treatment should not be based solely onANCA IFA results. The [employer] ANCA Group Consensusrecommends follow up testing of positive sera with both KY-3 and MPO-ANCA enzyme immunoassays. As many as 5% serumsamples are positive only by EIA. Ref. AM J Clin Bvqimd6018;111:507-513. Serum tissue transglutaminas e (tTG) IgA antibody assay (units/volume)Ordered By: Margarita Swenson on 01-06-2025 tTG IgA Qn (S) <2 U/mL 0-3 [facility] Comment on above: Negative 0 - 3 Weak Positive 4 - 10 Positive >10 Tissue Transglutaminase (tTG) has been identified as the endomysial antigen. Studies have demonstr- ated that endomysial IgA antibodies have over 99% specificity for gluten sensitive enteropathy. Sodium levelOrdered By: Estefanía Swenson on 01-06-2025 Sodium [Moles/Vol] 140 mmol/L 133-145 [facility] Total proteinOrdered By: Zo Swenson on 01-06-2025 Protein [Mass/Vol] 5.7 g/dL Low 5.9-8.4 [facility] CBC W/Diff, Automatedon 07- PATH REV Reviewed Normal [facility] Comment on above: Order Comment: Order Date: 08/08/24Order Info: [id number] - CBCD Result Comment: SEE REPORT IN PATIENT'S EMR AMENDED REPORT 12/28/24 1537 PATH REV previously reported as: October tosha Performed By: #### L 500.4050, L100.0100, L300.3900, L300.4310, L502.0250, L501.9985 ####[facility] [address] [place], [address] Absolute lymphocyte countOrd ered By: Darryl Nam on 12-16-2024 Lymphocytes Auto (Unsp spec) [#/Vol] 0.78 10*3/uL Low 0.83-4.51 [facility] Absolute neutrophil countOrd ered By: Darryl Nam on 12-16-2024 Neutrophils (Bld) [#/Vol] 3.3 10*3/uL 2.0-7.7 [facility] Automated lymphocyte count a s percentage of total leukocytesOrdered By: Darryl Nam on 12-16-2024 Lymphocytes/100 WBC Auto (Unsp spec) 17.1 % Low 19-41 [facility] Basophil percentageOrdered B y: Darryl Nam on 12-16-2024 Basophils/100 WBC (Bld) 0.4 % 0-1 [facility] CBC W/Diff, Automatedon 11-21 Platelets (Bld) [#/Vol] 44 10*3/uL Invalid Interpretation Code 980-622 [facility] Comment on above: Order Comment: Order Date: 12/12/24Order Info: [id number] - CBCD Result Comment: CRITICAL VALUE CALLED TO Tosha HECTOR 12/16/24 1451 Nuha Emmanuel. RESULTS READ BACK BY SAME. AMENDED REPORT 12/16/24 1451 PLT previously reported as: 44 *L K/mm3 Performed By: #### M 100.2200 #### [facility] [address] [place] [address], [address] Eosinophil percentageOrdered By: Darryl Nam on 12-16-2024 Eosinophils/100 WBC (Bld) 3.1 % 0-5 [facility] Erythrocyte distribution wid th ratioOrdered By: Darryl Nam on 12-16-2024 Erythrocyte distribution width (RBC) [Ratio] 13.4 % 11.6-14.6 [facility] Erythrocyte distribution wid th standard deviationOrdered By: Darryl Nam on 12-16-2024 Erythrocyte distribution width (RBC) [Ratio] 46.1 fl High 35.1-43.9 [facility] Hematocrit Auto (Bld) [Volum e fraction]Ordered By: Darryl Nam on 06-27-2025 Hematocrit (Bld) [Volume fraction] 37.3 % 37-47 [facility] Hemoglobin measurementOrdere d By: Darryl Nam on 12-16-2024 Hemoglobin (Bld) [Mass/Vol] 12.8 g/dL 12.0-15.0 [facility] Immature granulocytes/100 WB C Auto (Bld)Ordered By: Darryl Nam on 12-16-2024 Immature granulocytes/100 WBC (Bld) 0.200 % 0.0-0.9 [facility] Comment on above: IG% - Immature Granu locytes (promyelocytes, myelocytes and metamyelocytes) > 1% indicates that a LEFT SHIFT is Present. MCV (mean corpuscular volume ) determinationOrdered By: Darryl Nam on 12-16-2024 MCV (RBC) [Entitic vol] 93.5 fL 81-99 [facility] Mean corpuscular hemoglobin (MCH) determinationOrdered By: Darryl Nam on 12-16-2024 MCH (RBC) [Entitic mass] 32.1 pg High 27.0-32.0 [facility] Mean corpuscular hemoglobin concentration (MCHC) determinationOrdered By: Darryl Nam on 12-16-2024 MCHC (RBC) [Mass/Vol] 34.3 g/dL 32-36 [facility] Mean platelet volume determi nationOrdered By: Darryl Nam on 12-16-2024 Platelet mean volume (Bld) [Entitic vol] 11.2 fL 6.2-12.0 [facility] Monocyte percentageOrdered B y: Darryl Nam on 12-16-2024 Monocytes/100 WBC (Bld) 6.8 % 0-10 [facility] Neutrophil percentageOrdered By: Darryl Nam on 12-16-2024 Neutrophils/100 WBC (Bld) 72.4 % High 47-70 [facility] Nucleated red blood cell per centageOrdered By: Darryl Nam on 12-16-2024 Nucleated RBC/100 WBC (Bld) [Ratio] 0 % 0-5 [facility] Platelet countOrdered By: Bryn Nam on 12-16-2024 Platelets (Bld) [#/Vol] 44 10*3/uL Low 150-450 [facility] Comment on above: CRITICAL VALUE SIFUENTES D KAPIL HOYOSI12/16/24 1451 Nuha Emmanuel.RESULTS READ BACK BY SAME. Previous reported result: 44 K/je8Rauakm by: DORIAN on 12/16/24:1451 AMENDED REPORT 12/16/24 1451 PLT previously reported as: 44 *L K/mm3 RBC Auto (Bld) [#/Vol]Ordere d By: Darryl Nam on 12-16-2024 RBC (Bld) [#/Vol] 3.99 10*6/uL Low 4.2-5.4 [facility] White blood cell (WBC) count Ordered By: Darryl Nam on 12-16-2024 WBC (Bld) [#/Vol] 4.6 10*3/uL 4.4-11.0 [facility] Fructosamineon 12-14-2024 FRUCTOSAMINE 282 umol/L Normal 0-285 [facility] Comment on above: Result Comment: Publ ished reference interval for apparently healthy subjects between age 20 and 60 is 205 - 285 umol/L and in a poorly controlled diabetic population is 228 - 563 umol/L with a mean of 396 umol/L. Performed at: [facility] [address] [id number] [employer] Operator: Jeronimo Fontenot PhD, Phone: [phone] Performed By: #### L 506.1003, L3400.0100 #### [facility] [place], [address] Absolute lymphocyte countOrd ered By: Darryl Nam on 12-12-2024 Lymphocytes Auto (Unsp spec) [#/Vol] 0.92 10*3/uL 0.83-4.51 [facility] Absolute neutrophil countOrd ered By: Darryl Nam on 12-12-2024 Neutrophils (Bld) [#/Vol] 3.1 10*3/uL 2.0-7.7 [facility] Activated partial thrombopla stin time (aPTT) in platelet poor plasma by coagulation aOrdered By: Darryl Nam on 12-12-2024 aPTT Coag (PPP) [Time] 33.2 s 24.1-36.2 [facility] Anion gap in Serum or Plasma Ordered By: Darryl Nam on 12-12-2024 Anion gap [Moles/Vol] 8 mmol/L 5-15 [facility] Automated lymphocyte count a s percentage of total leukocytesOrdered By: Darryl Nam on 12-12-2024 Lymphocytes/100 WBC Auto (Unsp spec) 19.9 % 19-41 [facility] BUN/creatinine ratioOrdered By: Darryl Nam on 12-12-2024 Urea nitrogen/Creatinine [Mass ratio] 10.2 mg/mg 10-20 [facility] Basophil percentageOrdered B y: Darryl Nam on 12-12-2024 Basophils/100 WBC (Bld) 0.4 % 0-1 [facility] Bilirubin, totalOrdered By: Darryl Nam on 12-12-2024 Bilirubin [Mass/Vol] 1.51 mg/dL High 0.00-1.30 [facility] Blood manual differential co mment interpretation (narrative result)Ordered By: Darryl Nam on 12-12-2024 Manual differential comment Aditya (Bld) [Interp] SCANNED [facility] Carbon dioxide, total [Moles /volume] in Central venous bloodOrdered By: Darryl Nam on 12-12-2024 CO2 [Moles/Vol] 23.9 mmol/L 21.0-32.0 [facility] Chloride assayOrdered By: Bryn Nam on 12-12-2024 Chloride [Moles/Vol] 109 mmol/L High 98-108 [facility] Comprehensive Metabolic Prof ilon 12-12-2024 Albumin [Mass/Vol] 3.2 g/dL Low 3.4-4.8 [facility] Comment on above: Order Comment: Order Date: 08/08/24Order Info: 0786-1 - CMPfuctosamine Performed By: #### L 500.4050, L100.0100, L300.3900, L300.4310, L502.0250, L501.9985 ####[facility] [address] [place], [address] Albumin/Globulin [Mass ratio] 1.2 {ratio} Normal 0.9-2.4 [facility] Comment on above: Order Comment: Order Date: 08/08/24Order Info: 0786-1 - CMPfuctosamine Performed By: #### L 500.4050, L100.0100, L300.3900, L300.4310, L502.0250, L501.9985 ####[facility] [address] [place], [address] ALK PHOS 115 U/L High 35-104 [facility] Comment on above: Order Comment: Order Date: 08/08/24Order Info: 0786-1 - CMPfuctosamine Performed By: #### L 500.4050, L100.0100, L300.3900, L300.4310, L502.0250, L501.9985 ####[facility] [address] [place], [address] ALT [Catalytic activity/Vol] 20 U/L Normal <=34 [facility] Comment on above: Order Comment: Order Date: 08/08/24Order Info: 0786-1 - CMPfuctosamine Performed By: #### L 500.4050, L100.0100, L300.3900, L300.4310, L502.0250, L501.9985 ####[facility] [address] [place], [address] AST [Catalytic activity/Vol] 36 U/L High <=31 [facility] Comment on above: Order Comment: Order Date: 08/08/24Order Info: 0786-1 - CMPfuctosamine Performed By: #### L 500.4050, L100.0100, L300.3900, L300.4310, L502.0250, L501.9985 ####[facility] [address] [place], [address] Bilirubin [Mass/Vol] 1.51 mg/dL High 0.00-1.30 [facility] Comment on above: Order Comment: Order Date: 08/08/24Order Info: 0786-1 - CMPfuctosamine Performed By: #### L 500.4050, L100.0100, L300.3900, L300.4310, L502.0250, L501.9985 ####[facility] [address] [place], [address] BUN/CRE 10.2 RATIO Normal 10-20 [facility] Comment on above: Order Comment: Order Date: 08/08/24Order Info: 0786-1 - CMPfuctosamine Performed By: #### L 500.4050, L100.0100, L300.3900, L300.4310, L502.0250, L501.9985 ####[facility] [address] [place], [address] Calcium [Mass/Vol] 9.1 mg/dL Normal 7.6-11.0 [facility] Comment on above: Order Comment: Order Date: 08/08/24Order Info: 0786-1 - CMPfuctosamine Performed By: #### L 500.4050, L100.0100, L300.3900, L300.4310, L502.0250, L501.9985 ####[facility] [address] [place], [address] Chloride [Moles/Vol] 109 mmol/L High 98-108 [facility] Comment on above: Order Comment: Order Date: 08/08/24Order Info: 0786-1 - CMPfuctosamine Performed By: #### L 500.4050, L100.0100, L300.3900, L300.4310, L502.0250, L501.9985 ####[facility] [address] [place], [address] CO2 [Moles/Vol] 23.9 mmol/L Normal 21.0-32.0 [facility] Comment on above: Order Comment: Order Date: 08/08/24Order Info: 0786-1 - CMPfuctosamine Performed By: #### L 500.4050, L100.0100, L300.3900, L300.4310, L502.0250, L501.9985 ####[facility] [address] [place], [address] Creatinine [Mass/Vol] 1.18 mg/dL Normal 0.70-1.20 [facility] Comment on above: Order Comment: Order Date: 08/08/24Order Info: 0786-1 - CMPfuctosamine Performed By: #### L 500.4050, L100.0100, L300.3900, L300.4310, L502.0250, L501.9985 ####[facility] [address] [place], [place], [id number] GAP 8 Normal 5-15 [facility] Comment on above: Order Comment: Order Date: 08/08/24Order Info: 0786-1 - CMPfuctosamine Performed By: #### L 500.4050, L100.0100, L300.3900, L300.4310, L502.0250, L501.9985 ####[facility] [address] [place], [address] GFR/1.73 sq M.predicted among non-blacks MDRD (S/P/Bld) [Vol rate/Area] 52 mL/min/{1.73_m2} Low >60 [facility] Comment on above: Order Comment: Order Date: 08/08/24Order Info: 0786-1 - CMPfuctosamine Result Comment: mL/m in/1.73m2 CKD-EPI Creatinine Equation (2020) Performed By: #### L 500.4050, L100.0100, L300.3900, L300.4310, L502.0250, L501.9985 ####[facility] [address] [place], [place], [id number] Globulin (S) [Mass/Vol] 2.6 g/dL Normal 2.2-4.2 [facility] Comment on above: Order Comment: Order Date: 08/08/24Order Info: 0786-1 - CMPfuctosamine Performed By: #### L 500.4050, L100.0100, L300.3900, L300.4310, L502.0250, L501.9985 ####[facility] [address] [place], [address] Glucose [Mass/Vol] 163 mg/dL High 70-99 [facility] Comment on above: Order Comment: Order Date: 08/08/24Order Info: 0786-1 - CMPfuctosamine Performed By: #### L 500.4050, L100.0100, L300.3900, L300.4310, L502.0250, L501.9985 ####[facility] [address] [place], [address] Potassium [Moles/Vol] 4.4 mmol/L Normal 3.3-5.1 [facility] Comment on above: Order Comment: Order Date: 08/08/24Order Info: 0786-1 - CMPfuctosamine Result Comment: Hemo lysis present, Results??could be affected. ?? Performed By: #### L 500.4050, L100.0100, L300.3900, L300.4310, L502.0250, L501.9985 ####[facility] [address] [place], [address] Sodium [Moles/Vol] 142 mmol/L Normal 133-145 [facility] Comment on above: Order Comment: Order Date: 08/08/24Order Info: 0786-1 - CMPfuctosamine Performed By: #### L 500.4050, L100.0100, L300.3900, L300.4310, L502.0250, L501.9985 ####[facility] [address] [place], [address] T PROT 5.8 g/dL Low 5.9-8.4 [facility] Comment on above: Order Comment: Order Date: 08/08/24Order Info: 0786-1 - CMPfuctosamine Performed By: #### L 500.4050, L100.0100, L300.3900, L300.4310, L502.0250, L501.9985 ####[facility] [address] [place], [address] Urea nitrogen [Mass/Vol] 12 mg/dL Normal 4-19 [facility] Comment on above: Order Comment: Order Date: 08/08/24Order Info: 0786-1 - CMPfuctosamine Performed By: #### L 500.4050, L100.0100, L300.3900, L300.4310, L502.0250, L501.9985 ####[facility] [address] [place], [place], [address] Eosinophil percentageOrdered By: Darryl Nam on 12-12-2024 Eosinophils/100 WBC (Bld) 3.5 % 0-5 [facility] Erythrocyte distribution wid th ratioOrdered By: Darryl Nam on 12-12-2024 Erythrocyte distribution width (RBC) [Ratio] 13.7 % 11.6-14.6 [facility] Erythrocyte distribution wid th standard deviationOrdered By: Darryl Nam on 12-12-2024 Erythrocyte distribution width (RBC) [Ratio] 48.2 fl High 35.1-43.9 [facility] Glomerular filtration rate ( GFR) estimation/1.73 sq m using serum, plasma, or whole bOrdered By: Darryl Nam on 12-12-2024 GFR/1.73 sq M.predicted among non-blacks MDRD (S/P/Bld) [Vol rate/Area] 52 mL/min/{1.73_m2} Low >60 [facility] Comment on above: mL/min/1.73m2 CKD-EP I Creatinine Equation (2020) Hematocrit Auto (Bld) [Volum e fraction]Ordered By: Darryl Nam on 12-12-2024 Hematocrit (Bld) [Volume fraction] 39.1 % 37-47 [facility] Hemoglobin A1con 12-12-2024 HbA1c (Bld) [Mass fraction] 6.4 % High <=5.6 [facility] Comment on above: Order Comment: Order Date: 08/08/24Order Info: [id number] - A1C Result Comment: Norm al < 5.7 % Prediabetic 5.7 - 6.4 % Diabetic >or= 6.5 % Please note range changes. Performed By: #### M 100.2200 #### [facility] [address] [place], [address] Hemoglobin A1c percentageOrd ered By: Darryl Nam on 12-12-2024 HbA1c (Bld) [Mass fraction] 6.4 % High <5.7 [facility] Comment on above: Normal < 5.7 % Predi abetic 5.7 - 6.4 % Diabetic >or= 6.5 % Please note range changes. Hemoglobin measurementOrdere d By: Darryl Nam on 12-12-2024 Hemoglobin (Bld) [Mass/Vol] 13.0 g/dL 12.0-15.0 [facility] Immature granulocytes/100 WB C Auto (Bld)Ordered By: Darryl Nam on 12-12-2024 Immature granulocytes/100 WBC (Bld) 0.200 % 0.0-0.9 [facility] Comment on above: IG% - Immature Granu locytes (promyelocytes, myelocytes and metamyelocytes) > 1% indicates that a LEFT SHIFT is Present. International normalized rat io (INR) calculationOrdered By: Darryl Nam on 12-12-2024 INR Coag (Bld) [Relative time] 1.2 {INR} [facility] - Chemistry and C hemistry - challengeOrdered By: Darryl Nam on 12-12-2024 AST [Catalytic activity/Vol] 36 U/L High <32 [facility] MCV (mean corpuscular volume ) determinationOrdered By: Darryl Nam on 12-12-2024 MCV (RBC) [Entitic vol] 95.4 fL 81-99 [facility] Mean corpuscular hemoglobin (MCH) determinationOrdered By: Darryl Nam on 12-12-2024 MCH (RBC) [Entitic mass] 31.7 pg 27.0-32.0 [facility] Mean corpuscular hemoglobin concentration (MCHC) determinationOrdered By: Darryl Nam on 12-12-2024 MCHC (RBC) [Mass/Vol] 33.2 g/dL 32-36 [facility] Mean platelet volume determi nationOrdered By: Darryl Nam on 12-12-2024 Platelet mean volume (Bld) [Entitic vol] 11.5 fL 6.2-12.0 [facility] Microalb:Creat Ratio,Random URon 12-12-2024 Creatinine [Mass/Vol] 242.00 mg/dL High 28.00-217.00 [facility] Comment on above: Order Comment: Order Date: 08/08/24Order Info: 0779-1 - MIACREOrder Info: [id number] - MIALB Performed By: #### M 100.2200 #### [facility] [address] [place], [address] MALB:CREAT 14.4 mg/g CRE Normal [facility] Comment on above: Order Comment: Order Date: 08/08/24Order Info: 0779-1 - MIACREOrder Info: [id number] - MIALB Performed By: #### M 100.2200 #### [facility] [address] [place], [address] MICROALBUMIN,UR 34.9 mg/L Normal NO RANGE EST. [facility] Comment on above: Order Comment: Order Date: 08/08/24Order Info: [id number] - MIACREOrder Info: [id number] - MIALB Performed By: #### M 100.2200 #### [facility] [address] [place], [address] Monocyte percentageOrdered B y: Darryl Nam on 12-12-2024 Monocytes/100 WBC (Bld) 8.0 % 0-10 [facility] Neutrophil percentageOrdered By: Darryl Nam on 12-12-2024 Neutrophils/100 WBC (Bld) 68.0 % 47-70 [facility] Nucleated red blood cell per centageOrdered By: Darryl Nam on 12-12-2024 Nucleated RBC/100 WBC (Bld) [Ratio] 0 % 0-5 [facility] Partial Thromboplast Timeon 12-12-2024 aPTT Coag (Bld) [Time] 33.2 s Normal 24.1-36.2 [facility] Comment on above: Order Comment: Order Date: 08/08/24Order Info: [id number] - PTOrder Info: [id number] - PTT Performed By: #### L 500.4050, L100.0100, L300.3900, L300.4310, L502.0250, L501.9985 ####[facility] [address] [place], [address] Platelet countOrdered By: Bryn Nam on 12-12-2024 Platelets (Bld) [#/Vol] 46 10*3/uL Low 150-450 [facility] Comment on above: CRITICAL VALUE SIFUENTES D TO BFrancine MECOPPPS41/23/25 1608 Nuha Emmanuel.RESULTS READ BACK BY SAME. Platelet estimateOrdered By: Darryl Nam on 12-12-2024 Platelets LM Ql (Bld) MKD DEC ADEQ [facility] Potassium measurement (mass/ volume)Ordered By: Darryl Nam on 12-12-2024 Potassium (Unsp spec) [Mass/Vol] 4.4 mmol/L 3.3-5.1 [facility] Comment on above: Hemolysis present, R esults could be affected. Prothrombin Time w/INRon INR Coag (PPP) [Relative time] 1.2 {INR} Normal [facility] Comment on above: Order Comment: Order Date: 08/08/24Order Info: [id number] - PTOrder Info: [id number] - PTT Performed By: #### L 500.4050, L100.0100, L300.3900, L300.4310, L502.0250, L501.9985 ####[facility] [address] [place], [place], [id number] PT Coag (PPP) [Time] 15.5 s High 11.7-14.9 [facility] Comment on above: Order Comment: Order Date: 08/08/24Order Info: [id number] - PTOrder Info: [id number] - PTT Performed By: #### L 500.4050, L100.0100, L300.3900, L300.4310, L502.0250, L501.9985 ####[facility] [address] [place], [address] Prothrombin timeOrdered By: Darryl Nam on 12-12-2024 PT Coag (PPP) [Time] 15.5 s High 11.7-14.9 [facility] RBC Auto (Bld) [#/Vol]Ordere d By: Darryl Nam on 12-12-2024 RBC (Bld) [#/Vol] 4.10 10*6/uL Low 4.2-5.4 [facility] Random urine creatinine sera urement (mass/volume)Ordered By: Darryl Nam on 12-12-2024 Creatinine Unsp time (U) [Mass/Vol] 242.00 mg/dL High 28.00-217.00 [facility] Review by pathologistOrdered By: Darryl Nam on 12-12-2024 Pathologist review Aditya (Unsp spec) [Interp] Cynthia givens [facility] Pathologist review Aditya (Unsp spec) [Interp] Reviewed [facility] Comment on above: Previous reported re sult: Cynthia givens Edited by: AUSTYN on 12/28/24:1537SEE REPORT IN PATIENT'S EMR AMENDED REPORT 12/28/24 1537 PATH REV previously reported as: Cynthia givens Serum creatinine measurement (mass/volume)Ordered By: Darryl Nam on 12-12-2024 Creatinine [Mass/Vol] 1.18 mg/dL 0.70-1.20 [facility] Serum globulin measurementOr dered By: Darryl Nam on 12-12-2024 Globulin (S) [Mass/Vol] 2.6 g/dL 2.2-4.2 [facility] Serum glucose measurement (m ass/volume)Ordered By: Darryl Nam on 12-12-2024 Glucose [Mass/Vol] 163 mg/dL High 70-99 [facility] Serum or plasma alanine ritter otransferase (ALT) measurementOrdered By: Darryl Nam on 12-12-2024 ALT [Catalytic activity/Vol] 20 U/L <35 [facility] Serum or plasma albumin sera urement (mass/volume)Ordered By: Darryl Nam on 12-12-2024 Albumin [Mass/Vol] 3.2 g/dL Low 3.4-4.8 [facility] Serum or plasma albumin/glob ulin mass ratioOrdered By: Darryl Nam on 12-12-2024 Albumin/Globulin [Mass ratio] 1.2 {ratio} 0.9-2.4 [facility] Serum or plasma alkaline kathleen sphatase measurementOrdered By: Darryl Nam on 12-12-2024 ALP [Catalytic activity/Vol] 115 U/L High 35-104 [facility] Serum or plasma calcium sera urement (mass/volume)Ordered By: Darryl Nam on 12-12-2024 Calcium [Mass/Vol] 9.1 mg/dL 7.6-11.0 [facility] Serum or plasma urea nitroge n measurement (mass/volume)Ordered By: Darryl Nam on 12-12-2024 Urea nitrogen [Mass/Vol] 12 mg/dL 4-19 [facility] Sodium levelOrdered By: Darryl Nam on 12-12-2024 Sodium [Moles/Vol] 142 mmol/L 133-145 [facility] Total proteinOrdered By: Margaret Nam on 12-12-2024 Protein [Mass/Vol] 5.8 g/dL Low 5.9-8.4 [facility] Urine albumin measurement [facility] detection limit of 20 mg/L or less (mass/volume)Ordered By: Darryl Nam on 12-12-2024 Albumin DL <= 20 mg/L (U) [Mass/Vol] 34.9 mg/L NO RANGE EST. [facility] Vitamin D,25 Hydroxyon 12-12 Vitamin D 25-OH 28.6 ng/mL Low 30-100 [facility] Comment on above: Order Comment: Order Date: 08/08/24 Order Info: 0786-1 - CMP Result Comment: Sindy min D Status Deficiency: <20 ng/mL (50nmol/L) Insufficiency: 20-30 ng/mL (50-75 nmol/L) Sufficiency: 30-100 ng/mL (75-250 nmol/L) Toxicity: >100 ng/mL (>250 nmol/L) Performed By: #### L 506.1001, L3400.0100 #### [facility] [address] [place], [address] White blood cell (WBC) count Ordered By: Darryl Nam on 12-12-2024 WBC (Bld) [#/Vol] 4.6 10*3/uL 4.4-11.[address] [facility] [address] FLANK WO IVCONon 08-09-19 CT FLANK WO IVCON * * *Final Report* * * DATE OF EXAM: Aug 09 2024 4:25PM [facility] 0529 - CT FLANK WO IVCON / [...] chronic liver disease, cirrhosis with portal hypertension. 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 Submit a new specimen if indicated. Normal [facility] Comment on above: Performed By: #### M 100.2200 #### [facility] [address] [place], [address] CBC W/Diff, Automatedon 06-23 Absolute Lymph 0.81 X10 3/uL Low 0.83-4.51 [facility] Comment on above: Order Comment: Order Date: 07/18/24Order Info: [id number] - CBCDOrder Info: [id number] - SED Performed By: #### L 500.4050, L501.6710, L101.9900, L100.0100 ####[facility] [address] [place], [address] Absolute Neut 3.1 X10 3/uL Normal 2.0-7.7 [facility] Comment on above: Order Comment: Order Date: 07/18/24Order Info: [id number] - CBCDOrder Info: [id number] - SED Performed By: #### L 500.4050, L501.6710, L101.9900, L100.0100 ####[facility] [address] [place], [address] Basophils/100 WBC (Bld) 0.7 % Normal 0-1 [facility] Comment on above: Order Comment: Order Date: 07/18/24Order Info: [id number] - CBCDOrder Info: [id number] - SED Performed By: #### L 500.4050, L501.6710, L101.9900, L100.0100 ####[facility] [address] [place], [address] Eosinophils/100 WBC (Bld) 2.0 % Normal 0-5 [facility] Comment on above: Order Comment: Order Date: 07/18/24Order Info: 018- - CBCDOrder Info: [id number] - SED Performed By: #### L 500.4050, L501.6710, L101.9900, L100.0100 ####[facility] [address] [place], [address] Erythrocyte distribution width (RBC) [Ratio] 13.6 % Normal 11.6-14.6 [facility] Comment on above: Order Comment: Order Date: 07/18/24Order Info: 018- - CBCDOrder Info: [id number] - SED Performed By: #### L 500.4050, L501.6710, L101.9900, L100.0100 ####[facility] [address] [place], [address] Hematocrit (Bld) [Volume fraction] 39.1 % Normal 37-47 [facility] Comment on above: Order Comment: Order Date: 07/18/24Order Info: [id number] - CBCDOrder Info: [id number] - SED Performed By: #### L 500.4050, L501.6710, L101.9900, L100.0100 ####[facility] [address] [place], [address] Hemoglobin (Bld) [Mass/Vol] 13.5 g/dL Normal 12.0-15.0 [facility] Comment on above: Order Comment: Order Date: 07/18/24Order Info: 0184- - CBCDOrder Info: [id number] - SED Performed By: #### L 500.4050, L501.6710, L101.9900, L100.0100 ####[facility] [address] [place], [address] IG% 0.400 Normal 0.0-0.9 [facility] Comment on above: Order Comment: Order Date: 07/18/24Order Info: 018- - CBCDOrder Info: [id number] - SED Result Comment: IG% - Immature Granulocytes (promyelocytes, myelocytes and metamyelocytes) > 1% indicates that a LEFT SHIFT is Present. Performed By: #### L 500.4050, L501.6710, L101.9900, L100.0100 ####[facility] [address] [place], [address] Lymphocytes/100 WBC (Bld) 18.1 % Low 19-41 [facility] Comment on above: Order Comment: Order Date: 07/18/24Order Info: 183- - CBCDOrder Info: [id number] - SED Performed By: #### L 500.4050, L501.6710, L101.9900, L100.0100 ####[facility] [address] [place], [address] MCH (RBC) [Entitic mass] 32.1 pg High 27.0-32.0 [facility] Comment on above: Order Comment: Order Date: 07/18/24Order Info: 018- - CBCDOrder Info: [id number] - SED Performed By: #### L 500.4050, L501.6710, L101.9900, L100.0100 ####[facility] [address] [place], [address] MCHC (RBC) [Mass/Vol] 34.5 g/dL Normal 32-36 [facility] Comment on above: Order Comment: Order Date: 07/18/24Order Info: 018- - CBCDOrder Info: [id number] - SED Performed By: #### L 500.4050, L501.6710, L101.9900, L100.0100 ####[facility] [address] [place], [address] MCV (RBC) [Entitic vol] 92.9 fL Normal 81-99 [facility] Comment on above: Order Comment: Order Date: 07/18/24Order Info: [id number] - CBCDOrder Info: [id number] - SED Performed By: #### L 500.4050, L501.6710, L101.9900, L100.0100 ####[facility] [address] [place], [address] Monocytes/100 WBC (Bld) 8.7 % Normal 0-10 [facility] Comment on above: Order Comment: Order Date: 07/18/24Order Info: [id number] - CBCDOrder Info: [id number] - SED Performed By: #### L 500.4050, L501.6710, L101.9900, L100.0100 ####[facility] [address] [place], [address] Neutrophils/100 WBC (Bld) 70.1 % High 47-70 [facility] Comment on above: Order Comment: Order Date: 07/18/24Order Info: [id number] - CBCDOrder Info: [id number] - SED Performed By: #### L 500.4050, L501.6710, L101.9900, L100.0100 ####[facility] [address] [place], [address] Nucleated RBC (Bld) [#/Vol] 0 10*3/uL Normal 0-5 [facility] Comment on above: Order Comment: Order Date: 07/18/24Order Info: [id number] - CBCDOrder Info: [id number] - SED Performed By: #### L 500.4050, L501.6710, L101.9900, L100.0100 ####[facility] [address] [place], [address] Platelet mean volume (Bld) [Entitic vol] 10.6 fL Normal 6.2-12.0 [facility] Comment on above: Order Comment: Order Date: 07/18/24Order Info: 018- - CBCDOrder Info: [id number] - SED Performed By: #### L 500.4050, L501.6710, L101.9900, L100.0100 ####[facility] [address] [place], [address] Platelets (Bld) [#/Vol] 52 10*3/uL Low 150-450 [facility] Comment on above: Order Comment: Order Date: 07/18/24Order Info: [id number] - CBCDOrder Info: [id number] - SED Performed By: #### L 500.4050, L501.6710, L101.9900, L100.0100 ####[facility] [address] [place], [address] RBC (Bld) [#/Vol] 4.21 10*6/uL Normal 4.2-5.4 [facility] Comment on above: Order Comment: Order Date: 07/18/24Order Info: [id number] - CBCDOrder Info: [id number] - SED Performed By: #### L 500.4050, L501.6710, L101.9900, L100.0100 ####[facility] [address] [place], [address] RDW SD 45.7 fl High 35.1-43.9 [facility] Comment on above: Order Comment: Order Date: 07/18/24Order Info: [id number] - CBCDOrder Info: [id number] - SED Performed By: #### L 500.4050, L501.6710, L101.9900, L100.0100 ####[facility] [address] [place], [address] WBC (Bld) [#/Vol] 4.5 10*3/uL Normal 4.4-11.0 [facility] Comment on above: Order Comment: Order Date: 07/18/24Order Info: [id number] - CBCDOrder Info: [id number] - SED Performed By: #### L 500.4050, L501.6710, L101.9900, L100.0100 ####[facility] [address] [place], [place], [id number] CRPon 07-18-2024 C-REACTIVE PROT 12.20 mg/L High 0.0-3.0 [facility] Comment on above: Order Comment: Order Date: 07/18/24Order Info: 0786-1 - CMPOrder Info: [id number] - CRP Result Comment: C-Re active Protein (CRP) provides useful information for the diagnosis, therapy and monitoring of inflammatory processes and associated diseases. For the evaluation of Relative Risk for Cardiovascular Disease, a High Sensitivity CRP (HSCRP) should be ordered. Performed By: #### L 500.4050, L501.6710, L101.9900, L100.0100 ####[facility] [address] [place], [place], [id number] Comprehensive Metabolic Prof ilon 1 Albumin [Mass/Vol] 2.7 g/dL Low 3.2-5.0 [facility] Comment on above: Order Comment: Order Date: 07/18/24Order Info: [id number] - CMPOrder Info: 12893-0 - CRP Performed By: #### L 500.4050, L501.6710, L101.9900, L100.0100 ####[facility] [address] [place], [place], [id number] Albumin/Globulin [Mass ratio] 0.8 {ratio} Low 0.9-2.4 [facility] Comment on above: Order Comment: Order Date: 07/18/24Order Info: 0786-1 - CMPOrder Info: [id number] - CRP Performed By: #### L 500.4050, L501.6710, L101.9900, L100.0100 ####[facility] [address] [place], [address] ALK P 132 U/L High 45-117 [facility] Comment on above: Order Comment: Order Date: 07/18/24Order Info: 0786-1 - CMPOrder Info: [id number] - CRP Performed By: #### L 500.4050, L501.6710, L101.9900, L100.0100 ####[facility] [address] [place], [address] ALT [Catalytic activity/Vol] 25 U/L Normal 13-56 [facility] Comment on above: Order Comment: Order Date: 07/18/24Order Info: 0786-1 - CMPOrder Info: [id number] - CRP Performed By: #### L 500.4050, L501.6710, L101.9900, L100.0100 ####[facility] [address] [place], [address] AST [Catalytic activity/Vol] 35 U/L Normal 15-37 [facility] Comment on above: Order Comment: Order Date: 07/18/24Order Info: 0786-1 - CMPOrder Info: [id number] - CRP Performed By: #### L 500.4050, L501.6710, L101.9900, L100.0100 ####[facility] [address] [place], [address] Bilirubin [Mass/Vol] 2.30 mg/dL High 0.20-1.00 [facility] Comment on above: Order Comment: Order Date: 07/18/24Order Info: 0786-1 - CMPOrder Info: [id number] - CRP Result Comment: For patients on eltrombopag therapy, use of Dimension [place] TBIL is not recommended. Performed By: #### L 500.4050, L501.6710, L101.9900, L100.0100 ####[facility] [address] [place], [address] BUN/CRE 12.0 RATIO Normal 10-20 [facility] Comment on above: Order Comment: Order Date: 07/18/24Order Info: 0786-1 - CMPOrder Info: [id number] - CRP Performed By: #### L 500.4050, L501.6710, L101.9900, L100.0100 ####[facility] [address] [place], [address] CA,Total 9.0 mg/dL Normal 8.5-10.1 [facility] Comment on above: Order Comment: Order Date: 07/18/24Order Info: 0786-1 - CMPOrder Info: [id number] - CRP Performed By: #### L 500.4050, L501.6710, L101.9900, L100.0100 ####[facility] [address] [place], [address] Chloride [Moles/Vol] 110 mmol/L High 98-107 [facility] Comment on above: Order Comment: Order Date: 07/18/24Order Info: 0786-1 - CMPOrder Info: [id number] - CRP Performed By: #### L 500.4050, L501.6710, L101.9900, L100.0100 ####[facility] [address] [place], [address] CO2 [Moles/Vol] 23.0 mmol/L Normal 21.0-32.0 [facility] Comment on above: Order Comment: Order Date: 07/18/24Order Info: 0786-1 - CMPOrder Info: [id number] - CRP Performed By: #### L 500.4050, L501.6710, L101.9900, L100.0100 ####[facility] [address] [place], [address] Creatinine [Mass/Vol] 1.25 mg/dL High 0.55-1.02 [facility] Comment on above: Order Comment: Order Date: 07/18/24Order Info: 0786-1 - CMPOrder Info: [id number] - CRP Result Comment: The validity of the calculated GFR GFRAA in patients over 70 years has not been determined. Clinical correlation is essential. Performed By: #### L 500.4050, L501.6710, L101.9900, L100.0100 ####[facility] [address] [place], [address] EST GFR - AA 56 mL/min Low >60 [facility] Comment on above: Order Comment: Order Date: 07/18/24Order Info: 0786-1 - CMPOrder Info: [id number] - CRP Result Comment: Afri can Mauritian GFR Calc Performed By: #### L 500.4050, L501.6710, L101.9900, L100.0100 ####[facility] [address] [place], [address] GAP 7 Normal 5-15 [facility] Comment on above: Order Comment: Order Date: 07/18/24Order Info: 0786-1 - CMPOrder Info: [id number] - CRP Performed By: #### L 500.4050, L501.6710, L101.9900, L100.0100 ####[facility] [address] [place], [address] GFR/1.73 sq M.predicted among non-blacks MDRD (S/P/Bld) [Vol rate/Area] 46 mL/min/{1.73_m2} Low >60 [facility] Comment on above: Order Comment: Order Date: 07/18/24Order Info: 0786-1 - CMPOrder Info: [id number] - CRP Result Comment: Non- GFR Calc Performed By: #### L 500.4050, L501.6710, L101.9900, L100.0100 ####[facility] [address] [place], [address] Globulin (S) [Mass/Vol] 3.5 g/dL Normal 2.2-4.2 [facility] Comment on above: Order Comment: Order Date: 07/18/24Order Info: 0786-1 - CMPOrder Info: [id number] - CRP Performed By: #### L 500.4050, L501.6710, L101.9900, L100.0100 ####[facility] [address] [place], [address] Glucose [Mass/Vol] 269 mg/dL High 74-106 [facility] Comment on above: Order Comment: Order Date: 07/18/24Order Info: 0786-1 - CMPOrder Info: [id number] - CRP Result Comment: Gluc ose result greater than or equal to 200 mg/dL suggests DIABETES MELLITUS per A.D.A. criteria. Performed By: #### L 500.4050, L501.6710, L101.9900, L100.0100 ####[facility] [address] [place], [address] Potassium [Moles/Vol] 3.9 mmol/L Normal 3.5-5.1 [facility] Comment on above: Order Comment: Order Date: 07/18/24Order Info: 0786-1 - CMPOrder Info: [id number] - CRP Performed By: #### L 500.4050, L501.6710, L101.9900, L100.0100 ####[facility] [address] [place], [address] Sodium [Moles/Vol] 140 mmol/L Normal 136-145 [facility] Comment on above: Order Comment: Order Date: 07/18/24Order Info: 0786-1 - CMPOrder Info: [id number] - CRP Performed By: #### L 500.4050, L501.6710, L101.9900, L100.0100 ####[facility] [address] [place], [address] T PROT 6.2 g/dL Low 6.4-8.2 [facility] Comment on above: Order Comment: Order Date: 07/18/24Order Info: 0786-1 - CMPOrder Info: [id number] - CRP Performed By: #### L 500.4050, L501.6710, L101.9900, L100.0100 ####[facility] [address] [place], [address] Urea nitrogen [Mass/Vol] 15 mg/dL Normal - [facility] Comment on above: Order Comment: Order Date: 07/18/24Order Info: 0786-1 - CMPOrder Info: [id number] - CRP Performed By: #### L 500.4050, L501.6710, L101.9900, L100.0100 ####[facility] [address] [place], [address] Erythrocyte Sed Rateon 07-18 SED RATE 5 mm/hr Normal 0-30 [facility] Comment on above: Order Comment: Order Date: 07/18/24Order Info: 0184-1 - CBCDOrder Info: [id number] - SED Performed By: #### L 500.4050, L501.6710, L101.9900, L100.0100 ####[facility] [address] [place], [address] CBC W/Diff, Automatedon 05-22 Absolute Lymph 1.19 X10 3/uL Normal 0.83-4.51 [facility] Comment on above: Order Comment: Order Date: 06/08/24 Order Info: 0184-1 - CBCD Performed By: #### L 500.4050, L100.0100 #### [facility] [address] [place], [address] Absolute Neut 7.4 X10 3/uL Normal 2.0-7.7 [facility] Comment on above: Order Comment: Order Date: 06/08/24 Order Info: 0184-1 - CBCD Performed By: #### L 500.4050, L100.0100 #### [facility] [address] [place], [address] Basophils/100 WBC (Bld) 0.3 % Normal 0-1 [facility] Comment on above: Order Comment: Order Date: 06/08/24 Order Info: 0184-1 - CBCD Performed By: #### L 500.4050, L100.0100 #### [facility] [address] [place], [address] Eosinophils/100 WBC (Bld) 0.5 % Normal 0-5 [facility] Comment on above: Order Comment: Order Date: 06/08/24 Order Info: 0184-1 - CBCD Performed By: #### L 500.4050, L100.0100 #### [facility] [address] [place], [address] Erythrocyte distribution width (RBC) [Ratio] 13.7 % Normal 11.6-14.6 [facility] Comment on above: Order Comment: Order Date: 06/08/24 Order Info: 0184-1 - CBCD Performed By: #### L 500.4050, L100.0100 #### [facility] [address] [place], [address] Hematocrit (Bld) [Volume fraction] 42.9 % Normal 37-47 [facility] Comment on above: Order Comment: Order Date: 06/08/24 Order Info: 0184-1 - CBCD Performed By: #### L 500.4050, L100.0100 #### [facility] [address] [place], [address] Hemoglobin (Bld) [Mass/Vol] 14.3 g/dL Normal 12.0-15.0 [facility] Comment on above: Order Comment: Order Date: 06/08/24 Order Info: 0184-1 - CBCD Performed By: #### L 500.4050, L100.0100 #### [facility] [address] [place], [address] IG% 1.900 High 0.0-0.9 [facility] Comment on above: Order Comment: Order Date: 06/08/24 Order Info: 018- - CBCD Result Comment: IG% - Immature Granulocytes (promyelocytes, myelocytes and metamyelocytes) > 1% indicates that a LEFT SHIFT is Present. Performed By: #### L 500.4050, L100.0100 #### [facility] [address] [place], [address] Lymphocytes/100 WBC (Bld) 12.4 % Low 19-41 [facility] Comment on above: Order Comment: Order Date: 06/08/24 Order Info: 018- - CBCD Performed By: #### L 500.4050, L100.0100 #### [facility] [address] [place], [address] MCH (RBC) [Entitic mass] 31.0 pg Normal 27.0-32.0 [facility] Comment on above: Order Comment: Order Date: 06/08/24 Order Info: 018- - CBCD Performed By: #### L 500.4050, L100.0100 #### [facility] [address] [place], [address] MCHC (RBC) [Mass/Vol] 33.3 g/dL Normal 32-36 [facility] Comment on above: Order Comment: Order Date: 06/08/24 Order Info: 018- - CBCD Performed By: #### L 500.4050, L100.0100 #### [facility] [address] [place], [address] MCV (RBC) [Entitic vol] 93.1 fL Normal 81-99 [facility] Comment on above: Order Comment: Order Date: 06/08/24 Order Info: 018-1 - CBCD Performed By: #### L 500.4050, L100.0100 #### [facility] [address] [place], [address] Monocytes/100 WBC (Bld) 7.6 % Normal 0-10 [facility] Comment on above: Order Comment: Order Date: 06/08/24 Order Info: 0184-1 - CBCD Performed By: #### L 500.4050, L100.0100 #### [facility] [address] [place], [address] Neutrophils/100 WBC (Bld) 77.3 % High 47-70 [facility] Comment on above: Order Comment: Order Date: 06/08/24 Order Info: 0184-1 - CBCD Performed By: #### L 500.4050, L100.0100 #### [facility] [address] [place], [address] Nucleated RBC (Bld) [#/Vol] 0 10*3/uL Normal 0-5 [facility] Comment on above: Order Comment: Order Date: 06/08/24 Order Info: 0184-1 - CBCD Performed By: #### L 500.4050, L100.0100 #### [facility] [address] [place], [address] Platelet mean volume (Bld) [Entitic vol] 10.1 fL Normal 6.2-12.0 [facility] Comment on above: Order Comment: Order Date: 06/08/24 Order Info: 0184-1 - CBCD Performed By: #### L 500.4050, L100.0100 #### [facility] [address] [place], [address] Platelets (Bld) [#/Vol] 65 10*3/uL Low 150-450 [facility] Comment on above: Order Comment: Order Date: 06/08/24 Order Info: 0184-1 - CBCD Performed By: #### L 500.4050, L100.0100 #### [facility] [address] [place], [address] RBC (Bld) [#/Vol] 4.61 10*6/uL Normal 4.2-5.4 [facility] Comment on above: Order Comment: Order Date: 06/08/24 Order Info: 0184-1 - CBCD Performed By: #### L 500.4050, L100.0100 #### [facility] [address] [place], [address] RDW SD 46.2 fl High 35.1-43.9 [facility] Comment on above: Order Comment: Order Date: 06/08/24 Order Info: 0184- - CBCD Performed By: #### L 500.4050, L100.0100 #### [facility] [address] [place], [address] WBC (Bld) [#/Vol] 9.6 10*3/uL Normal 4.4-11.0 [facility] Comment on above: Order Comment: Order Date: 06/08/24 Order Info: 0184- - CBCD Performed By: #### L 500.4050, L100.0100 #### [facility] [address] [place], [address] Comprehensive Metabolic Prof ilon 06-08-2024 Albumin [Mass/Vol] 2.6 g/dL Low 3.2-5.0 [facility] Comment on above: Order Comment: Order Date: 06/08/24 Order Info: 0786-1 - CMP Performed By: #### L 500.4050, L100.0100 #### [facility] [address] [place], [address] Albumin/Globulin [Mass ratio] 0.7 {ratio} Low 0.9-2.4 [facility] Comment on above: Order Comment: Order Date: 06/08/24 Order Info: 0786-1 - CMP Performed By: #### L 500.4050, L100.0100 #### [facility] [address] [place], [address] ALK P 119 U/L High 45-117 [facility] Comment on above: Order Comment: Order Date: 06/08/24 Order Info: 0786-1 - CMP Performed By: #### L 500.4050, L100.0100 #### [facility] [address] [place], [address] ALT [Catalytic activity/Vol] 20 U/L Normal 13-56 [facility] Comment on above: Order Comment: Order Date: 06/08/24 Order Info: 0786-1 - CMP Performed By: #### L 500.4050, L100.0100 #### [facility] [address] [place], [address] AST [Catalytic activity/Vol] 24 U/L Normal 15-37 [facility] Comment on above: Order Comment: Order Date: 06/08/24 Order Info: 0786-1 - CMP Performed By: #### L 500.4050, L100.0100 #### [facility] [address] [place], [address] Bilirubin [Mass/Vol] 3.10 mg/dL High 0.20-1.00 [facility] Comment on above: Order Comment: Order Date: 06/08/24 Order Info: 0786-1 - CMP Result Comment: For patients on eltrombopag therapy, use of Dimension [place] TBIL is not recommended. Performed By: #### L 500.4050, L100.0100 #### [facility] [address] [place], [address] BUN/CRE 12.9 RATIO Normal 10-20 [facility] Comment on above: Order Comment: Order Date: 06/08/24 Order Info: 0786-1 - CMP Performed By: #### L 500.4050, L100.0100 #### [facility] [address] [place], [address] CA,Total 8.9 mg/dL Normal 8.5-10.1 [facility] Comment on above: Order Comment: Order Date: 06/08/24 Order Info: 0786-1 - CMP Performed By: #### L 500.4050, L100.0100 #### [facility] [address] [place], [address] Chloride [Moles/Vol] 108 mmol/L High 98-107 [facility] Comment on above: Order Comment: Order Date: 06/08/24 Order Info: 07-1 - CMP Performed By: #### L 500.4050, L100.0100 #### [facility] [address] [place], [address] CO2 [Moles/Vol] 27.0 mmol/L Normal 21.0-32.0 [facility] Comment on above: Order Comment: Order Date: 06/08/24 Order Info: 0786- - CMP Performed By: #### L 500.4050, L100.0100 #### [facility] [address] [place], [address] Creatinine [Mass/Vol] 1.16 mg/dL High 0.55-1.02 [facility] Comment on above: Order Comment: Order Date: 06/08/24 Order Info: 0786-1 - CMP Result Comment: The validity of the calculated GFR GFRAA in patients over 70 years has not been determined. Clinical correlation is essential. Performed By: #### L 500.4050, L100.0100 #### [facility] [address] [place], [address] EST GFR - AA 61 mL/min Normal >60 [facility] Comment on above: Order Comment: Order Date: 06/08/24 Order Info: 0786-1 - CMP Result Comment: Afri can [place] GFR Calc Performed By: #### L 500.4050, L100.0100 #### [facility] [address] [place], [address] GAP 5 Normal 5-15 [facility] Comment on above: Order Comment: Order Date: 06/08/24 Order Info: 0786-1 - CMP Performed By: #### L 500.4050, L100.0100 #### [facility] [address] [place], [address] GFR/1.73 sq M.predicted among non-blacks MDRD (S/P/Bld) [Vol rate/Area] 50 mL/min/{1.73_m2} Low >60 [facility] Comment on above: Order Comment: Order Date: 06/08/24 Order Info: 0786-1 - CMP Result Comment: Non- GFR Calc Performed By: #### L 500.4050, L100.0100 #### [facility] [address] [place], [address] Globulin (S) [Mass/Vol] 3.6 g/dL Normal 2.2-4.2 [facility] Comment on above: Order Comment: Order Date: 06/08/24 Order Info: 0786-1 - CMP Performed By: #### L 500.4050, L100.0100 #### [facility] [address] [place], [address] Glucose [Mass/Vol] 216 mg/dL High 74-106 [facility] Comment on above: Order Comment: Order Date: 06/08/24 Order Info: 0786-1 - CMP Result Comment: Gluc ose result greater than or equal to 200 mg/dL suggests DIABETES MELLITUS per A.D.A. criteria. Performed By: #### L 500.4050, L100.0100 #### [facility] [address] [place], [address] Potassium [Moles/Vol] 3.8 mmol/L Normal 3.5-5.1 [facility] Comment on above: Order Comment: Order Date: 06/08/24 Order Info: 0786-1 - CMP Performed By: #### L 500.4050, L100.0100 #### [facility] [address] [place], [address] Sodium [Moles/Vol] 140 mmol/L Normal 136-145 [facility] Comment on above: Order Comment: Order Date: 06/08/24 Order Info: 0786-1 - CMP Performed By: #### L 500.4050, L100.0100 #### [facility] [address] [place], [address] T PROT 6.2 g/dL Low 6.4-8.2 [facility] Comment on above: Order Comment: Order Date: 06/08/24 Order Info: 0786-1 - CMP Performed By: #### L 500.4050, L100.0100 #### [facility] [address] [place], [address] Urea nitrogen [Mass/Vol] 15 mg/dL Normal 7-18 [facility] Comment on above: Order Comment: Order Date: 06/08/24 Order Info: 0786-1 - CMP Performed By: #### L 500.4050, L100.0100 #### [facility] [address] [place], [address] Adrenocorticotropic Hormoneo n 05-17-2024 ACTH 12.0 pg/mL Normal 7.2-63.3 [facility] Comment on above: Order Comment: Order Date: 06/08/24 Order Info: 0786-1 - CMP Result Comment: ACTH reference interval for samples collected between 7 and 10 AM. Performed By: #### L 500.4050, L100.0100 #### [facility] [address] [place], [address] Fructosamineon 05-17-2024 FRUCTOSAMINE 365 umol/L High 0-285 [facility] Comment on above: Order Comment: N Result Comment: Publ ished reference interval for apparently healthy subjects between age 20 and 60 is 205 - 285 umol/L and in a poorly controlled diabetic population is 228 - 563 umol/L with a mean of 396 umol/L. Performed at: [address] [id number] [employer] Operator: Jeronimo Fontenot PhD, Phone: [phone] Performed By: #### L 509.6000, L3100.5475, L3400.0100, L501.6710, L509.1000, L3300.1000, L501.9520, L3100.3450, L101.9900, L500.4050, L502.0250, L3400.8000 ####[facility] [address] [place], [address] Protein Electroph, Son 05-17 Albumin [Mass/Vol] 2.8 g/dL Low 2.9-4.4 [facility] Comment on above: Order Comment: Order Date: 06/08/24 Order Info: 0786-1 - CMP Performed By: #### L 500.4050, L100.0100 #### [facility] [address] [place], [address] Albumin/Globulin [Mass ratio] 0.9 {ratio} Normal 0.7-1.7 [facility] Comment on above: Order Comment: Order Date: 06/08/24 Order Info: 0786-1 - CMP Performed By: #### L 500.4050, L100.0100 #### [facility] [address] [place], [address] ALPHA-1 GLOBUL 0.3 g/dL Normal 0.0-0.4 [facility] Comment on above: Order Comment: Order Date: 06/08/24 Order Info: 0786-1 - CMP Performed By: #### L 500.4050, L100.0100 #### [facility] [address] [place], [address] ALPHA-2 GLOBUL 0.5 g/dL Normal 0.4-1.0 [facility] Comment on above: Order Comment: Order Date: 06/08/24 Order Info: 0786-1 - CMP Performed By: #### L 500.4050, L100.0100 #### [facility] [address] [place], [address] BETA GLOBULIN 1.0 g/dL Normal 0.7-1.3 [facility] Comment on above: Order Comment: Order Date: 06/08/24 Order Info: 0786-1 - CMP Performed By: #### L 500.4050, L100.0100 #### [facility] [address] [place], [address] GAMMA GLOBULIN 1.2 g/dL Normal 0.4-1.8 [facility] Comment on above: Order Comment: Order Date: 06/08/24 Order Info: 0786-1 - CMP Performed By: #### L 500.4050, L100.0100 #### [facility] [address] [place], [address] Globulin (S) [Mass/Vol] 3.0 g/dL Normal 2.2-3.9 [facility] Comment on above: Order Comment: Order Date: 06/08/24 Order Info: 0786-1 - CMP Performed By: #### L 500.4050, L100.0100 #### [facility] [address] [place], [address] INTERPRETATION Comment Normal . [facility] Comment on above: Order Comment: Order Date: 06/08/24 Order Info: 0786-1 - CMP Result Comment: Prot ein electrophoresis scan will follow via computer, mail, or air twister winder delivery. Performed By: #### L 500.4050, L100.0100 #### [facility] [address] [place], [address] M-SPIKE Not Observed Normal Not Observed [facility] Comment on above: Order Comment: Order Date: 06/08/24 Order Info: 0786 - CMP Performed By: #### L 500.4050, L100.0100 #### [facility] [address] [place], [address] NOTE: Comment: Normal . [facility] Comment on above: Order Comment: Order Date: 06/08/24 Order Info: 07 - CMP Result Comment: SPE shows decreased albumin and total protein. Performed By: #### L 500.4050, L100.0100 #### [facility] [address] [place], [place], [address] Protein [Mass/Vol] 5.8 g/dL Low 6.0-8.5 [facility] Comment on above: Order Comment: Order Date: 06/08/24 Order Info: 07 - CMP Performed By: #### L 500.4050, L100.0100 #### [facility] [address] [place], [address] Quantiferon TB-Gold+on 05-17 QFT MITOGEN CINDY > 10.00 Normal . [facility] Comment on above: Order Comment: N Performed By: #### L 509.6000, L3100.5475, L3400.0100, L501.6710, L509.1000, L3300.1000, L501.9520, L3100.3450, L101.9900, L500.4050, L502.0250, L3400.8000 ####[facility] [address] [place], [address] QFT NIL VALUE 0 IU/mL Normal . [facility] Comment on above: Order Comment: N Performed By: #### L 509.6000, L3100.5475, L3400.0100, L501.6710, L509.1000, L3300.1000, L501.9520, L3100.3450, L101.9900, L500.4050, L502.0250, L3400.8000 ####[facility] [address] [place], [place], [address] QFT TB GOLD+ Comment Normal . [facility] Comment on above: Order Comment: N Result Comment: Hardik tiFERON-TB Gold Plus is [...] for the test. Performed By: #### L 509.6000, L3100.5475, L3400.0100, L501.6710, L509.1000, L3300.1000, L501.9520, L3100.3450, L101.9900, L500.4050, L502.0250, L3400.8000 ####[facility] [address] [place], [address] QFT TB POS CRIT Negative Normal Negative [facility] Comment on above: Order Comment: N Result Comment: No r esponse to M [...] Chemiluminescence immunoassay methodology Performed By: #### L 509.6000, L3100.5475, L3400.0100, L501.6710, L509.1000, L3300.1000, L501.9520, L3100.3450, L101.9900, L500.4050, L502.0250, L3400.8000 ####[facility] [address] [place], [place], [id number] QFT TB1+ AG CINDY 0 IU/mL Normal . [facility] Comment on above: Order Comment: N Performed By: #### L 509.6000, L3100.5475, L3400.0100, L501.6710, L509.1000, L3300.1000, L501.9520, L3100.3450, L101.9900, L500.4050, L502.0250, L3400.8000 ####[facility] [address] [place], [address] QFT TB2+ AG CINDY 0.03 IU/mL Normal . [facility] Comment on above: Order Comment: N Performed By: #### L 509.6000, L3100.5475, L3400.0100, L501.6710, L509.1000, L3300.1000, L501.9520, L3100.3450, L101.9900, L500.4050, L502.0250, L3400.8000 ####[facility] [address] [place], [place], [id number] ANTINUCLEAR ANTIBODIES DIREC Ton 05-16-2024 BREANNE,DIRECT Negative Normal Negative [facility] Comment on above: Result Comment: Perf ormed at: [facility] [id number] [employer] Operator: Jeronimo Fontenot PhD, Phone: [phone] Performed By: #### L 500.4050, L100.0100 #### [facility] [address] [place], [place], [id number] CORTISOL SERUMon 05-13-2024 CORTISOL 12.10 ug/dL Normal 3.44-22.45 [facility] Comment on above: Result Comment: Adul t (AM) 5.27 - 22.45 ug/dL Adult (PM) 3.44 - 16.76 ug/dL Performed By: #### L 500.4050, L100.0100 #### [facility] [address] [place], [address] CRPon 05-13-2024 C-REACTIVE PROT 10.40 mg/L High 0.0-3.0 [facility] Comment on above: Result Comment: C-Re active Protein (CRP) provides useful information for the diagnosis, therapy and monitoring of inflammatory processes and associated diseases. For the evaluation of Relative Risk for Cardiovascular Disease, a High Sensitivity CRP (HSCRP) should be ordered. Performed By: #### L 500.4050, L100.0100 #### [facility] [address] [place], [address] Comprehensive Metabolic Prof ilon 05-13-2024 Albumin [Mass/Vol] 2.7 g/dL Low 3.2-5.0 [facility] Comment on above: Performed By: #### L 500.4050, L100.0100 #### [facility] [address] [place], [address] Albumin/Globulin [Mass ratio] 0.8 {ratio} Low 0.9-2.4 [facility] Comment on above: Performed By: #### L 500.4050, L100.0100 #### [facility] [address] [place], [address] ALK P 128 U/L High 45-117 [facility] Comment on above: Performed By: #### L 500.4050, L100.0100 #### [facility] [address] [place], [address] ALT [Catalytic activity/Vol] 24 U/L Normal 13-56 [facility] Comment on above: Performed By: #### L 500.4050, L100.0100 #### [facility] [address] [place], [address] AST [Catalytic activity/Vol] 38 U/L High 15-37 [facility] Comment on above: Performed By: #### L 500.4050, L100.0100 #### [facility] [address] [place], [address] Bilirubin [Mass/Vol] 1.30 mg/dL High 0.20-1.00 [facility] Comment on above: Result Comment: For patients on eltrombopag therapy, use of Dimension [place] TBIL is not recommended. Performed By: #### L 500.4050, L100.0100 #### [facility] [address] [place], [address] BUN/CRE 9.0 RATIO Low 10-20 [facility] Comment on above: Performed By: #### L 500.4050, L100.0100 #### [facility] [address] [place], [address] CA,Total 8.7 mg/dL Normal 8.5-10.1 [facility] Comment on above: Performed By: #### L 500.4050, L100.0100 #### [facility] [address] [place], [address] Chloride [Moles/Vol] 110 mmol/L High 98-107 [facility] Comment on above: Performed By: #### L 500.4050, L100.0100 #### [facility] [address] [place], [address] CO2 [Moles/Vol] 26.0 mmol/L Normal 21.0-32.0 [facility] Comment on above: Performed By: #### L 500.4050, L100.0100 #### [facility] [address] [place], [address] Creatinine [Mass/Vol] 1.11 mg/dL High 0.55-1.02 [facility] Comment on above: Result Comment: The validity of the calculated GFR GFRAA in patients over 70 years has not been determined. Clinical correlation is essential. Performed By: #### L 500.4050, L100.0100 #### [facility] [address] [place], [address] EST GFR - AA 64 mL/min Normal >60 [facility] Comment on above: Result Comment: Afri can Mauritian GFR Calc Performed By: #### L 500.4050, L100.0100 #### [facility] [address] [place], [address] GAP 6 Normal 5-15 [facility] Comment on above: Performed By: #### L 500.4050, L100.0100 #### [facility] [address] [place], [address] GFR/1.73 sq M.predicted among non-blacks MDRD (S/P/Bld) [Vol rate/Area] 53 mL/min/{1.73_m2} Low >60 [facility] Comment on above: Result Comment: Non- GFR Calc Performed By: #### L 500.4050, L100.0100 #### [facility] [address] [place], [address] Globulin (S) [Mass/Vol] 3.6 g/dL Normal 2.2-4.2 [facility] Comment on above: Performed By: #### L 500.4050, L100.0100 #### [facility] [address] [place], [address] Glucose [Mass/Vol] 233 mg/dL High 74-106 [facility] Comment on above: Result Comment: Gluc ose result greater than or equal to 200 mg/dL suggests DIABETES MELLITUS per A.D.A. criteria. Performed By: #### L 500.4050, L100.0100 #### [facility] [address] [place], [address] Potassium [Moles/Vol] 3.9 mmol/L Normal 3.5-5.1 [facility] Comment on above: Performed By: #### L 500.4050, L100.0100 #### [facility] [address] [place], [address] Sodium [Moles/Vol] 142 mmol/L Normal 136-145 [facility] Comment on above: Performed By: #### L 500.4050, L100.0100 #### [facility] [address] [place], [address] T PROT 6.3 g/dL Low 6.4-8.2 [facility] Comment on above: Performed By: #### L 500.4050, L100.0100 #### [facility] [address] [place], [address] Urea nitrogen [Mass/Vol] 10 mg/dL Normal 7-18 [facility] Comment on above: Performed By: #### L 500.4050, L100.0100 #### [facility] [address] [place], [address] Erythrocyte Sed Rateon 05-13 SED RATE 4 mm/hr Normal 0-30 [facility] Comment on above: Performed By: #### L 500.4050, L100.0100 #### [facility] [address] [place], [address] Microalb:Creat Ratio,Random URon 05-13-2024 Creatinine [Mass/Vol] 136.00 mg/dL Normal NO RAN GE EST. [facility] Comment on above: Performed By: #### L 500.4050, L100.0100 #### [facility] [address] [place], [address] MALB:CRE 15.4 mg/g CRE Normal <30 mg/g CRE [facility] Comment on above: Performed By: #### L 500.4050, L100.0100 #### [facility] [address] [place], [address] MICROALBUMIN,UR 20.9 mg/L Normal NO RANGE EST. [facility] Comment on above: Performed By: #### L 500.4050, L100.0100 #### [facility] [address] [place], [address] PTHINon 05-13-2024 PTH 22.5 pg/mL Normal 18.4-80.1 [facility] Comment on above: Performed By: #### L 500.4050, L100.0100 #### [facility] [address] [place], [address] Thyroid Stim Hormone (TSH)on 05-13-2024 TSH 2.370 uIU/mL Normal 0.358-3.740 [facility] Comment on above: Performed By: #### L 500.4050, L100.0100 #### [facility] [address] [place], [address] CBC W/Diff, Automatedon 02-21 Absolute Lymph 0.88 X10 3/uL Normal 0.83-4.51 [facility] Comment on above: Order Comment: Order Date: 03/14/24 Order Info: 0184-1 - CBCD Performed By: #### L 100.0100, L500.4050 #### [facility] [address] [place], [address] Absolute Neut 4.2 X10 3/uL Normal 2.0-7.7 [facility] Comment on above: Order Comment: Order Date: 03/14/24 Order Info: 0184-1 - CBCD Performed By: #### L 100.0100, L500.4050 #### [facility] [address] [place], [address] Basophils/100 WBC (Bld) 0.5 % Normal 0-1 [facility] Comment on above: Order Comment: Order Date: 03/14/24 Order Info: 0184-1 - CBCD Performed By: #### L 100.0100, L500.4050 #### [facility] [address] [place], [address] Eosinophils/100 WBC (Bld) 2.1 % Normal 0-5 [facility] Comment on above: Order Comment: Order Date: 03/14/24 Order Info: 0184-1 - CBCD Performed By: #### L 100.0100, L500.4050 #### [facility] [address] [place], [address] Erythrocyte distribution width (RBC) [Ratio] 13.4 % Normal 11.6-14.6 [facility] Comment on above: Order Comment: Order Date: 03/14/24 Order Info: 0184- - CBCD Performed By: #### L 100.0100, L500.4050 #### [facility] [address] [place], [address] Hematocrit (Bld) [Volume fraction] 40.9 % Normal 37-47 [facility] Comment on above: Order Comment: Order Date: 03/14/24 Order Info: 0184- - CBCD Performed By: #### L 100.0100, L500.4050 #### [facility] [address] [place], [address] Hemoglobin (Bld) [Mass/Vol] 13.5 g/dL Normal 12.0-15.0 [facility] Comment on above: Order Comment: Order Date: 03/14/24 Order Info: 0184- - CBCD Performed By: #### L 100.0100, L500.4050 #### [facility] [address] [place], [address] IG% 0.400 Normal 0.0-0.9 [facility] Comment on above: Order Comment: Order Date: 03/14/24 Order Info: 0184- - CBCD Result Comment: IG% - Immature Granulocytes (promyelocytes, myelocytes and metamyelocytes) > 1% indicates that a LEFT SHIFT is Present. Performed By: #### L 100.0100, L500.4050 #### [facility] [address] [place], [address] Lymphocytes/100 WBC (Bld) 15.7 % Low 19-41 [facility] Comment on above: Order Comment: Order Date: 03/14/24 Order Info: 0184-1 - CBCD Performed By: #### L 100.0100, L500.4050 #### [facility] [address] [place], [address] MCH (RBC) [Entitic mass] 31.0 pg Normal 27.0-32.0 [facility] Comment on above: Order Comment: Order Date: 03/14/24 Order Info: 018- - CBCD Performed By: #### L 100.0100, L500.4050 #### [facility] [address] [place], [address] MCHC (RBC) [Mass/Vol] 33.0 g/dL Normal 32-36 [facility] Comment on above: Order Comment: Order Date: 03/14/24 Order Info: 018-1 - CBCD Performed By: #### L 100.0100, L500.4050 #### [facility] [address] [place], [address] MCV (RBC) [Entitic vol] 93.8 fL Normal 81-99 [facility] Comment on above: Order Comment: Order Date: 03/14/24 Order Info: 0184-1 - CBCD Performed By: #### L 100.0100, L500.4050 #### [facility] [address] [place], [address] Monocytes/100 WBC (Bld) 6.2 % Normal 0-10 [facility] Comment on above: Order Comment: Order Date: 03/14/24 Order Info: 0184-1 - CBCD Performed By: #### L 100.0100, L500.4050 #### [facility] [address] [place], [address] Neutrophils/100 WBC (Bld) 75.1 % High 47-70 [facility] Comment on above: Order Comment: Order Date: 03/14/24 Order Info: 0184-1 - CBCD Performed By: #### L 100.0100, L500.4050 #### [facility] [address] [place], [address] Nucleated RBC (Bld) [#/Vol] 0 10*3/uL Normal 0-5 [facility] Comment on above: Order Comment: Order Date: 03/14/24 Order Info: 0184-1 - CBCD Performed By: #### L 100.0100, L500.4050 #### [facility] [address] [place], [address] Platelet mean volume (Bld) [Entitic vol] 11.1 fL Normal 6.2-12.0 [facility] Comment on above: Order Comment: Order Date: 03/14/24 Order Info: 0184-1 - CBCD Performed By: #### L 100.0100, L500.4050 #### [facility] [address] [place], [address] Platelets (Bld) [#/Vol] 52 10*3/uL Low 150-450 [facility] Comment on above: Order Comment: Order Date: 03/14/24 Order Info: 0184-1 - CBCD Performed By: #### L 100.0100, L500.4050 #### [facility] [address] [place], [address] RBC (Bld) [#/Vol] 4.36 10*6/uL Normal 4.2-5.4 [facility] Comment on above: Order Comment: Order Date: 03/14/24 Order Info: 0184-1 - CBCD Performed By: #### L 100.0100, L500.4050 #### [facility] [address] [place], [address] RDW SD 46.0 fl High 35.1-43.9 [facility] Comment on above: Order Comment: Order Date: 03/14/24 Order Info: 0184-1 - CBCD Performed By: #### L 100.0100, L500.4050 #### [facility] [address] [place], [address] WBC (Bld) [#/Vol] 5.6 10*3/uL Normal 4.4-11.0 [facility] Comment on above: Order Comment: Order Date: 03/14/24 Order Info: 0184- - CBCD Performed By: #### L 100.0100, L500.4050 #### [facility] [address] [place],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 Comment on above: Reference Range: 0.1 0 - 1.00 Complete Blood Count + Differential 1.04 {x10E9/L} below low threshold See Below MG-Gastroen terology-Ad min [facility] Work Phone: Comment on above: Reference Range: 1.2 0 - 4.80 Complete Blood Count + Differential 5.36 {x10E9/L} See Below MG-Gastroen terology-Ad min [facility] [employer] Work Phone: Comment on above: Reference Range: 1.2 0 - 7.70 Complete Blood Count + Differential 1.6 % 0.0 - 6.0 MG-Gastroen terology-Ad min [facility] Work Phone: Complete Blood Count + Differential 0.4 % 0.0 - 0.9 MG-Gastroen terology-Ad min [facility] Work Phone: Comment on above: Immature Granulocyte Count (IG) includes promyelocytes, myelocytes and metamyelocytes but does not include bands. Percent differential counts (%) should be interpreted in the context of the absolute cell counts (cells/L). Complete Blood Count + Differential 0.0 {/100_WBC} 0.0-0.0 MG-Gastroen terology-Ad min [facility] Work Phone: Ferritin, Serumon 01-09-2022 Ferritin [Mass/Vol] 112 ug/L 8 - 150 MG-Ga stroen terology-Ad min [facility] [employer] Work Phone: Hepatic Function Panelon Albumin BCP dye [Mass/Vol] 3.5 g/dL 3.4 - 5.0 MG-Gastroen terology-Ad min [facility] [employer] Work Phone: ALP [Catalytic activity/Vol] 100 U/L 33 - 110 MG-Gastroen terology-Ad min [facility] [employer] Work Phone: ALT With P-5'-P [Catalytic activity/Vol] 18 U/L 7 - 45 MG-Gastroen terology-Ad min [facility] [employer] Work Phone: Comment on above: Patients treated wit h Sulfasalazine may generate falsely decreased results for ALT. AST With P-5'-P [Catalytic activity/Vol] 22 U/L 9 - 39 MG-Gastroen terology-Ad min [facility] [employer] Work Phone: Bilirubin [Mass/Vol] 1.1 mg/dL 0.0 - 1.2 MG-G astroen terology-Ad min [facility] [employer] Work Phone: Bilirubin.direct [Mass/Vol] 0.3 mg/dL 0.0 - 0.3 MG-Gastroen terology-Ad min [facility] [employer] Work Phone: Protein [Mass/Vol] 6.4 g/dL 6.4 - 8.2 MG-Gas troen terology-Ad min [facility] [employer] Work Phone: Hepatitis A Antibody, Totalo n 01-09-2022 HAV Ab IA Ql (S) Reactive Abnormal See Below MG-Gastr oen terology-Ad min [facility] Work Phone: Comment on above: SOURCE: Reference [...] <10 MG-G astroen terology-Ad min [facility] [employer] Work Phone: Comment on above: SOURCE: INTERPRETIVE CRITERIA:<10 mIU/mL....NONREACTIVE >=10 mIU/mL...REACTIVE . Biotin interference may cause falsely decreased results. Patients taking a Biotin dose of up to 5 mg/day should refrain from taking Biotin for 24 hours before sample collection. Providers may contact their local laboratory for further information. Initial Visit (Gastroenterol ogjayjay)on 01-09-2022 Initial Visit (Gastroenterology) Diagnoses/Problems Assessed NAFLD (nonalcoholic fatty liver disease) (571.8) (K76.0) Cirrhosis (571.5) (K74.60) Need for hepatitis B screening test (V73.89) (Z11.59) Need for hepatitis C screening test (V73.89) (Z11.59) Thrombocytopenia (287.5) (D69.6) Orders Cirrhosis, NAFLD (nonalcoholic fatty liver disease) Hepatitis A Antibody, Total; Status:Resulted - Requires Verification,Retrospecti ve Authorization; Done: [id number] 12:56PM Performed:[facility]; Due:09Apr2022;Ordered; For:Cirrhosis, NAFLD (nonalcoholic fatty liver disease); Ordered By:Wendy Olvera; Cirrhosis, NAFLD (nonalcoholic fatty liver disease), Need for hepatitis B screening test Hepatitis B Core Antibody, Total; Status:Resulted - Requires Verification,Retrospecti ve Authorization; Done: 09Jan2022 12:56PM Performed:[facility]; Due:09Apr2022;Ordered; For:Cirrhosis, NAFLD (nonalcoholic fatty liver disease), Need for hepatitis B screening test; Ordered By:Wendy Olvera; Hepatitis B Surface Antibody; Status:Resulted - Requires Verification,Retrospecti ve Authorization; Done: 09Jan2022 12:56PM Performed:[facility]; Due:09Apr2022;Ordered; For:Cirrhosis, NAFLD (nonalcoholic fatty liver disease), Need for hepatitis B screening test; Ordered By:Wendy Olvera; Hepatitis B Surface Antigen; Status:Resulted - Requires Verification,Retrospecti ve Authorization; Done: 09Jan2022 12:56PM Performed:[facility]; Due:09Apr2022;Ordered; For:Cirrhosis, NAFLD (nonalcoholic fatty liver disease), Need for hepatitis B screening test; Ordered By:Wendy Olvera; Cirrhosis, NAFLD (nonalcoholic fatty liver disease), Need for hepatitis C screening test Hepatitis C Antibody Test; Status:Resulted - Requires Verification,Retrospecti ve Authorization; Done: 09Jan2022 12:56PM Performed:[facility]; Due:09Apr2022;Ordered; For:Cirrhosis, NAFLD (nonalcoholic fatty [...] AM Alpha Fetoprotein, Serum; Status:Resulted - Requires Verification,Retrospecti ve Authorization; Done: 09Jan2022 12:56PM Performed:[facility]; Due:09Apr2022;Ordered; For:Cirrhosis, NAFLD (nonalcoholic fatty liver disease), Thrombocytopenia; Ordered By:Wendy Olvera; Xpsgc-5-Vfyixdnhexd Phenotype, Serum; Status:In Progress - Specimen/Data Collected; [...] Olvera; Basic Metabolic Panel; Status:Resulted - Requires Verification,Retrospecti ve Authorization; Done: 09Jan2022 12:56PM Performed:[facility]; Due:09Apr2022;Ordered; For:Cirrhosis, NAFLD (nonalcoholic fatty liver disease), Thrombocytopenia; Ordered By:Wendy Olvera; Complete Blood Count + Differential; Status:Resulted - Requires Verification,Retrospecti ve Authorization; Done: 09Jan2022 12:56PM Performed:[facility]; Due:09Apr2022;Ordered; For:Cirrhosis, NAFLD (nonalcoholic fatty liver disease), Thrombocytopenia; Ordered By:Wendy Olvera; Ferritin, Serum; Status:Resulted - Requires Verification,Retrospecti ve Authorization; Done: 09Jan2022 12:56PM Performed:[facility]; Due:09Apr2022;Ordered; For:Cirrhosis, NAFLD (nonalcoholic fatty liver disease), Thrombocytopenia; Ordered By:Wendy Olvera; Hepatic Function Panel; Status:Resulted - Requires Verification,Retrospecti ve Authorization; Done: 09Jan2022 12:56PM Performed:[facility]; Due:09Apr2022;Ordered; For:Cirrhosis, NAFLD (nonalcoholic fatty liver disease), Thrombocytopenia; Ordered By:Wendy Olvera; Immunoglobulins (G,A,M); Status:Resulted - Requires Verification,Retrospecti ve Authorization; Done: 09Jan2022 12:56PM Performed:[facility]; Due:09Apr2022;Ordered; For:Cirrhosis, NAFLD (nonalcoholic fatty liver disease), Thrombocytopenia; Ordered By:Wendy Olvera; CALEB Liver Ultrasound; Status:Hold For - Scheduling,Retrospective Authorization; Requested for:[id number]; Perform:In Office; Due:09Apr2022; Last Updated By:Maricarmen Clark; 01/09/2022 11:36:44 AM;Ordered; For:Cirrhosis, NAFLD (nonalcoholic fatty liver disease), Thrombocytopenia; Ordered (more content not included)... Normal [facility] Laboratory - Chemistry and C hemistry - challengeon 01-09-2022 Alpha 1 antitrypsin [Mass/Vol] 165 mg/dL 90-200 MG-Gastroen terology-Ad min [facility] [employer] Work Phone: Comment on above: To convert to umol/L , multiply mg/dL by 0.185 Alpha 1 antitrypsin phenotyping [Interp] MM MG-Gastroen terology-Ad min [facility] [employer] Work Phone: Comment on above: The patient appears to have a normal phenotype. All M alleles (including subtypes M1, M2, and M3) produce normal serum concentrations of vpxay-6-lrsaedpw inhibitor and are not associated with clinical disease. Caution in interpretation is advised if the patient has been transfused within the previous 21 days.Performed By: [facility] [place] [address] [id number] Director: Benito Irwin MD, PhD Anion gap [Moles/Vol] 12 mmol/L 10 - 20 MG- Gastroen terology-Ad min [employer] Work Phone: Calcium [Mass/Vol] 9.2 mg/dL 8.6 - 10.6 MG-Gas troen terology-Ad min [employer] Work Phone: Chloride [Moles/Vol] 103 mmol/L 98 - 107 MG-G astroen terology-Ad min [employer] Work Phone: CO2 [Moles/Vol] 27 mmol/L 21 - 32 MG-Gastro en terology-Ad min [facility] Work Phone: Creatinine [Mass/Vol] 1.21 mg/dL above high threshold See Below MG-Gastroen terology-Ad min [facility] [employer] Work Phone: [phone] Comment on above: Reference Range: 0.5 0 - 1.05 Glucose [Mass/Vol] 272 mg/dL above high threshold 74 - 99 MG-Gastroen terology-Ad min [facility] Work Phone: [phone] IgA [Mass/Vol] 485 mg/dL above high threshold 70 - 400 MG-Gastroen terology-Ad min [facility] Work Phone: [phone] Comment on above: MONOCLONAL PROTEINS MAY CAUSE FALSELY LOWRESULTS IN THIS ASSAY. SERUM PROTEINELECTROPHORESIS SHOULD BE DONE THEFIRST TEST TO EVALUATE MONOCLONAL GAMMOPATHY. IgG [Mass/Vol] 1270 mg/dL 700 - 1600 MG-Gastroe n terology-Ad min [facility] Work Phone: Comment on above: MONOCLONAL PROTEINS MAY CAUSE FALSELY LOWRESULTS IN THIS ASSAY. SERUM PROTEINELECTROPHORESIS SHOULD BE DONE THEFIRST TEST TO EVALUATE MONOCLONAL GAMMOPATHY. IgM [Mass/Vol] 79 mg/dL 40 - 230 MG-Gastroe n terology-Ad min [facility] Work Phone: Comment on above: MONOCLONAL PROTEINS MAY CAUSE FALSELY LOWRESULTS IN THIS ASSAY. SERUM PROTEINELECTROPHORESIS SHOULD BE DONE THEFIRST TEST TO EVALUATE MONOCLONAL GAMMOPATHY. Iron [Mass/Vol] 69 ug/dL 35 - 150 MG-Gastro en terology-Ad min [facility] [employer] Work Phone: Iron binding capacity [Mass/Vol] 301 ug/dL 240 - 445 MG-Gastroen terology-Ad min [facility] Work Phone: Potassium [Moles/Vol] 4.6 mmol/L 3.5 - 5.3 MG- Gastroen terology-Ad min [facility] Work Phone: [phone] Sodium [Moles/Vol] 137 mmol/L 136 - 145 MG-Gas troen terology-Ad min [employer] Work Phone: Urea nitrogen [Mass/Vol] 18 mg/dL 6 - 23 MG-Gastroen terology-Ad min [employer] Work Phone: Laboratory - Coagulationon 0 01-09-2022 INR Coag (PPP) [Relative time] 1.1 {INR} 0.9 - 1.1 MG-Gastroen terology-Ad min [employer] Work Phone: PT Coag (PPP) [Time] 12.5 s 9.8 - 13.4 MG-G astroen terology-Ad min [employer] Work Phone: Laboratory - Serology - non- microon 01-09-2022 Nuclear Ab Hep2 substrate Ql (S) Negative NEGATIVE MG-Gastroen terology-Ad min [employer] Work Phone: Comment on above: The Antinuclear Anti body (BREANNE) test was performed using indirect immunofluorescence assay with HEp-2 cells slide. No Panel Informationon 01-09 23 % below low threshold 25 - 45 MG-Gastroen terology-Ad min [employer] Work Phone: 52 {mL/min/1.73m2} Abnormal >90 MG-Gas troen terology-Ad min [employer] Work Phone: Comment on above: CALCULATIONS OF DIANA MATED GFR ARE PERFORMED USING THE 2020 CKD-EPI STUDY REFIT EQUATION WITHOUT THE RACE VARIABLE FOR THE IDMS-TRACEABLE CREATININE METHODS.https://jasn.asnjournals.org/content/early/ ASN.0141442083 Negative NEGATIVE MG-Gastroen terology-Ad min [employer] Work Phone: Tobacco Screening.on 022 Fall risk assessment a) No falls within the last year MG-Rheumato [facility] [address] [employer] Work Phone: Tobacco use status CPHS b) No M G-Rheumato [facility] [address] [employer] Work Phone: Basophil percentageon 2021 Bilirubin [Mass/Vol] 1.40 mg/dL 0.20-1.00 [facility] Work Phone: Comment on above: For patients on eltr ombopag therapy, use of Dimension [place] TBIL is not recommended. Chloride [Moles/Vol] 108 mmol/L 98-107 [facility] Work Phone: Glucose [Mass/Vol] 211 mg/dL 74-106 [facility] Work Phone: Comment on above: Glucose result great er than or equal to 200 mg/dLsuggests DIABETES MELLITUS per A.D.A. criteria. Potassium [Moles/Vol] 4.0 mmol/L 3.5-5.1 [facility] Work Phone: Protein [Mass/Vol] 6.8 g/dL 6.4-8.2 [facility] Work Phone: Sodium [Moles/Vol] 137 mmol/L 136-145 [facility] Work Phone: Laboratory - Chemistry and C hemistry - challengeon 12-05-2021 ALP [Catalytic activity/Vol] 109 U/L 45-117 [facility] Work Phone: ALT [Catalytic activity/Vol] 24 U/L 13-56 [facility] Work Phone: CO2 [Moles/Vol] 24.0 mmol/L 21.0-32.0 [facility] Work Phone: Globulin (S) [Mass/Vol] 3.8 g/dL 2.2-4.2 [facility] Work Phone: Magnesium [Mass/Vol] 1.9 mg/dL 1.6-2.6 [facility] Work Phone: Urea nitrogen/Creatinine [Mass ratio] 12.6 mg/mg 10-20 [facility] Work Phone: No Panel Informationon 12-05 Estimated GFR (MDRD) Amer 55 mL/min >60 [facility] Work Phone: Comment on above: GFR Calc Estimated GFR (MDRD) Non-Af Amer 46 mL/min >60 [facility] Work Phone: Comment on above: Non- GFR Calc Serum or plasma albumin sera urement (mass/volume)on 12-05-2021 Albumin [Mass/Vol] 3.0 g/dL 3.2-5.0 [facility] Work Phone: Serum or plasma albumin/glob ulin mass ratioon 12-05-2021 Albumin/Globulin [Mass ratio] 0.8 {ratio} 0.9-2.4 [facility] Work Phone: Serum or plasma calcium sera urement (mass/volume)on 12-05-2021 Calcium [Mass/Vol] 9.1 mg/dL 8.5-10.1 [facility] Work Phone: Serum or plasma creatinine m easurement (mass/volume)on 12-05-2021 Creatinine [Mass/Vol] 1.27 mg/dL 0.55-1.02 [facility] Work Phone: Comment on above: The validity of the calculated GFR & GFRAA in patients over 70 years has not been determined. Clinical correlation is essential. Serum or plasma urea nitroge n measurement (mass/volume)on 12-05-2021 Urea nitrogen [Mass/Vol] 16 mg/dL 7-18 [facility] Work Phone: Thin prep Papanicolaou smear with manual screeningon 12-05-2021 Thin prep Papanicolaou smear with manual screening 22 U/L 15-37 [facility] Work Phone: Thin prep Papanicolaou smear with manual screening 5 5-15 [facility] Work Phone: Absolute lymphocyte counton 11-08-2021 Lymphocytes Auto (Unsp spec) [#/Vol] 0.98 10*3/uL 0.83-4.51 [facility] Work Phone: Basophil percentageon 2021 Basophils/100 WBC (Bld) 0.4 % 0-1 [facility] Work Phone: Bilirubin [Mass/Vol] 1.20 mg/dL 0.20-1.00 [facility] Work Phone: Comment on above: For patients on eltr ombopag therapy, use of Dimension [place] TBIL is not recommended. Chloride [Moles/Vol] 109 mmol/L 98-107 [facility] Work Phone: Eosinophils/100 WBC (Bld) 2.8 % 0-5 [facility] Work Phone: Glucose [Mass/Vol] 202 mg/dL 74-106 [facility] Work Phone: Comment on above: Glucose result great er than or equal to 200 mg/dLsuggests DIABETES MELLITUS per A.D.A. criteria. Neutrophils (Bld) [#/Vol] 3.4 10*3/uL 2.0-7.7 [facility] Work Phone: Neutrophils/100 WBC (Bld) 68.2 % 47-70 [facility] Work Phone: Potassium [Moles/Vol] 4.1 mmol/L 3.5-5.1 [facility] Work Phone: Protein [Mass/Vol] 6.8 g/dL 6.4-8.2 [facility] Work Phone: Sodium [Moles/Vol] 138 mmol/L 136-145 [facility] Work Phone: WBC (Bld) [#/Vol] 4.9 10*3/uL 4.4-11.0 [facility] Work Phone: Blood erythrocytes count (nu mber/volume)on 11-08-2021 RBC (Bld) [#/Vol] 4.43 10*6/uL 4.2-5.4 [facility] Work Phone: Blood hemoglobin measurement (mass/volume)on 11-08-2021 Hemoglobin (Bld) [Mass/Vol] 14.4 g/dL 12.0-15.0 [facility] Work Phone: Blood lymphocytes/100 leukoc yteson 11-08-2021 Lymphocytes/100 WBC (Bld) 19.9 % 19-41 [facility] Work Phone: Blood monocytes/100 leukocyt eson 11-08-2021 Monocytes/100 WBC (Bld) 8.3 % 0-10 [facility] Work Phone: Blood platelet mean volumeon 11-08-2021 Platelet mean volume (Bld) [Entitic vol] 10.3 fL 6.2-12.0 [facility] Work Phone: Determination of erythrocyte mean corpuscular volume (MCV)on 11-08-2021 MCV (RBC) [Entitic vol] 94.1 fL 81-99 [facility] Work Phone: Hematocrit Auto (Bld) [Volum e fraction]on 11-08-2021 Hematocrit (Bld) [Volume fraction] 41.7 % 37-47 [facility] Work Phone: Laboratory - Chemistry and C hemistry - challengeon 11-08-2021 ALP [Catalytic activity/Vol] 103 U/L 45-117 [facility] Work Phone: ALT [Catalytic activity/Vol] 26 U/L 13-56 [facility] Work Phone: CO2 [Moles/Vol] 23.0 mmol/L 21.0-32.0 [facility] Work Phone: Globulin (S) [Mass/Vol] 3.9 g/dL 2.2-4.2 [facility] Work Phone: Urea nitrogen/Creatinine [Mass ratio] 11.3 mg/mg - [facility] Work Phone: Laboratory - Hematology and Cell countson 11-08-2021 Erythrocyte distribution width (RBC) [Entitic vol] 44.7 fL 35.1-43.9 [facility] Work Phone: Erythrocyte distribution width (RBC) [Ratio] 13.2 % 11.6-14.6 [facility] Work Phone: Immature granulocytes/100 WBC (Bld) 0.400 % 0.0-0.9 [facility] Work Phone: Comment on above: IG% - Immature Granu locytes (promyelocytes, myelocytes and metamyelocytes) > 1% indicates that a LEFT SHIFT is Present. MCH (RBC) [Entitic mass] 32.5 pg 27.0-32.0 [facility] Work Phone: Nucleated RBC/100 WBC (Bld) [Ratio] 0 % 0-5 [facility] Work Phone: MCHC Auto (RBC) [Mass/Vol]on 11-08-2021 MCHC (RBC) [Mass/Vol] 34.5 g/dL 32-36 [facility] Work Phone: No Panel Informationon 11-08 Estimated GFR (MDRD) Amer 49 mL/min >60 [facility] Work Phone: Comment on above: GFR Calc Estimated GFR (MDRD) Non-Af Amer 40 mL/min >60 [facility] Work Phone: Comment on above: Non- GFR Calc Platelets bldon 11-08-2021 Platelets (Bld) [#/Vol] 54 10*3/uL 150-450 [facility] Work Phone: Serum or plasma C reactive p rotein measurement (mass/volume)on 11-08-2021 CRP [Mass/Vol] 8.68 mg/L 0.0-3.0 [facility] Work Phone: Comment on above: C-Reactive Protein ( CRP) provides useful information for thediagnosis, therapy and monitoring of inflammatory processesand associated diseases. For the evaluation of Relative Riskfor Cardiovascular Disease, a High Sensitivity CRP (HSCRP)should be ordered. Serum or plasma albumin sera urement (mass/volume)on 11-08-2021 Albumin [Mass/Vol] 2.9 g/dL 3.2-5.0 [facility] Work Phone: Serum or plasma albumin/glob ulin mass ratioon 11-08-2021 Albumin/Globulin [Mass ratio] 0.7 {ratio} 0.9-2.4 [facility] Work Phone: Serum or plasma calcium sera urement (mass/volume)on 11-08-2021 Calcium [Mass/Vol] 9.1 mg/dL 8.5-10.1 [facility] Work Phone: Serum or plasma creatinine m easurement (mass/volume)on 11-08-2021 Creatinine [Mass/Vol] 1.42 mg/dL 0.55-1.02 [facility] Work Phone: Comment on above: The validity of the calculated GFR & GFRAA in patients over 70 years has not been determined. Clinical correlation is essential. Serum or plasma urea nitroge n measurement (mass/volume)on 11-08-2021 Urea nitrogen [Mass/Vol] 16 mg/dL 7-18 [facility] Work Phone: Thin prep Papanicolaou smear with manual screeningon 11-08-2021 Thin prep Papanicolaou smear with manual screening 26 U/L 15-37 [facility] Work Phone: Thin prep Papanicolaou smear with manual screening 6 5-15 [facility] Work Phone: Radiologyon 10-25-2021 MG Breast Screening FINAL REPORT Interpreted by: YUNI BHAKTA ALEX, MD and PRISCILLA NELSON JOSEPH, MD 10/25/21 14:47 Patient Name: YARA BETH STUDY: DIGITAL DIAG MAMMO LEFT UNILAT; 10/25/2021 2:11 pm ACCESSION NUMBER(S): [id number] ORDERING CLINICNH Normal [facility] Work Phone: Mamm - Screening Mammogram w / Tomosynthesison 09-30-2021 MG Breast Screening FINAL REPORT Interpreted by: JUSTO QUILES NELSON, MD 10/01/21 08:23 Patient Name: YARA BETH STUDY: DIGITAL MAMM SCREENING W/ ROBERT; 09/30/2021 2:45 pm ACCESSION NUMBER(S): [id number] ORDERING CLINICIAN: ANDREW TURNERI Normal [facility] Work Phone: LMPon 09-23-2021 Last menstrual period start date AGE 50 [facility] Work Phone: FUR DRUMMER - Office Visiton FUR DRUMMER - Office Visit Diagnoses/Problems Assessed Visit for [...] RTO 1 year Provider Impressions 1. Annual CAT DOG OR OTHER PET GROOMER 2. Breast CA screening 3. Cervical CA screening 4. Colon CA screening 5. 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 Patient denies pelvic pain, discharge, [...] Biopsy(S) With Endocervical Curettage History of Diagnostic Esophagogastroduodenosco py History of Ear Pressure Equalization Tube History [...] drug use Social alcohol use Work history [employer] Allergies Medication Demerol TABS Recorded By: Andrew [...] Oral Tablet (more content not included)... Normal [facility] Absolute lymphocyte counton 07-23-2021 Lymphocytes Auto (Unsp spec) [#/Vol] 0.88 10*3/uL 0.83-4.51 [facility] Work Phone: Basophil percentageon 2021 Basophils/100 WBC (Bld) 0.4 % 0-1 [facility] Work Phone: Bilirubin [Mass/Vol] 1.60 mg/dL 0.20-1.00 [facility] Work Phone: Comment on above: For patients on eltr ombopag therapy, use of Dimension [place] TBIL is not recommended. Chloride [Moles/Vol] 108 mmol/L 98-107 [facility] Work Phone: Eosinophils/100 WBC (Bld) 2.0 % 0-5 [facility] Work Phone: [phone] Glucose [Mass/Vol] 273 mg/dL 74-106 [facility] Work Phone: Comment on above: Glucose result great er than or equal to 200 mg/dLsuggests DIABETES MELLITUS per A.D.A. criteria. Neutrophils (Bld) [#/Vol] 3.6 10*3/uL 2.0-7.7 [facility] Work Phone: Neutrophils/100 WBC (Bld) 72.8 % 47-70 [facility] Work Phone: Potassium [Moles/Vol] 4.1 mmol/L 3.5-5.1 [facility] Work Phone: Protein [Mass/Vol] 6.8 g/dL 6.4-8.2 [facility] Work Phone: [phone] Sodium [Moles/Vol] 138 mmol/L 136-145 [facility] Work Phone: WBC (Bld) [#/Vol] 5.0 10*3/uL 4.4-11.0 [facility] Work Phone: Blood erythrocytes count (nu mber/volume)on 07-23-2021 RBC (Bld) [#/Vol] 4.25 10*6/uL 4.2-5.4 [facility] Work Phone: Blood hemoglobin measurement (mass/volume)on 07-23-2021 Hemoglobin (Bld) [Mass/Vol] 13.8 g/dL 12.0-15.0 [facility] Work Phone: Blood lymphocytes/100 leukoc yteson 07-23-2021 Lymphocytes/100 WBC (Bld) 17.6 % 19-41 [facility] Work Phone: Blood manual differential co mment interpretation (narrative result)on 07-23-2021 Manual differential comment Aditya (Bld) [Interp] SCANNED [facility] Work Phone: Comment on above: THROMBOCYTOPENIA NOT ED Blood monocytes/100 leukocyt eson 07-23-2021 Monocytes/100 WBC (Bld) 6.8 % 0-10 [facility] Work Phone: Blood platelet mean volumeon 07-23-2021 Platelet mean volume (Bld) [Entitic vol] 10.8 fL 6.2-12.0 [facility] Work Phone: Determination of erythrocyte mean corpuscular volume (MCV)on 07-23-2021 MCV (RBC) [Entitic vol] 94.4 fL 81-99 [facility] Work Phone: Hematocrit Auto (Bld) [Volum e fraction]on 07-23-2021 Hematocrit (Bld) [Volume fraction] 40.1 % 37-47 [facility] Work Phone: Laboratory - Chemistry and C hemistry - challengeon 07-23-2021 ALP [Catalytic activity/Vol] 97 U/L 45-117 [facility] Work Phone: ALT [Catalytic activity/Vol] 21 U/L 13-56 [facility] Work Phone: CO2 [Moles/Vol] 27.0 mmol/L 21.0-32.0 [facility] Work Phone: Globulin (S) [Mass/Vol] 4.0 g/dL 2.2-4.2 [facility] Work Phone: Urea nitrogen/Creatinine [Mass ratio] 15.4 mg/mg 10-20 [facility] Work Phone: Laboratory - Hematology and Cell countson 07-23-2021 Erythrocyte distribution width (RBC) [Entitic vol] 46.8 fL 35.1-43.9 [facility] Work Phone: Erythrocyte distribution width (RBC) [Ratio] 13.5 % 11.6-14.6 [facility] Work Phone: Immature granulocytes/100 WBC (Bld) 0.400 % 0.0-0.9 [facility] Work Phone: Comment on above: IG% - Immature Granu locytes (promyelocytes, myelocytes and metamyelocytes) > 1% indicates that a LEFT SHIFT is Present. MCH (RBC) [Entitic mass] 32.5 pg 27.0-32.0 [facility] Work Phone: Nucleated RBC/100 WBC (Bld) [Ratio] 0 % 0-5 [facility] Work Phone: MCHC Auto (RBC) [Mass/Vol]on 07-23-2021 MCHC (RBC) [Mass/Vol] 34.4 g/dL 32-36 [facility] Work Phone: No Panel Informationon 07-23 Estimated GFR (MDRD) Amer 58 mL/min >60 [facility] Work Phone: Comment on above: GFR Calc Estimated GFR (MDRD) Non-Af Amer 48 mL/min >60 [facility] Work Phone: Comment on above: Non- GFR Calc Urine Microalbumin/Creatinine Ratio 17.8 mg/g CRE <30 [facility] Work Phone: Platelets bldon 07-23-2021 Platelets (Bld) [#/Vol] 56 10*3/uL 150-450 [facility] Work Phone: Serum or plasma albumin sera urement (mass/volume)on 07-23-2021 Albumin [Mass/Vol] 2.8 g/dL 3.2-5.0 [facility] Work Phone: Serum or plasma albumin/glob ulin mass ratioon 07-23-2021 Albumin/Globulin [Mass ratio] 0.7 {ratio} 0.9-2.4 [facility] Work Phone: Serum or plasma calcium sera urement (mass/volume)on 07-23-2021 Calcium [Mass/Vol] 8.9 mg/dL 8.5-10.[address] [facility] Work Phone: Serum or plasma creatinine m easurement (mass/volume)on 07-23-2021 Creatinine [Mass/Vol] 1.23 mg/dL 0.55-1.02 [facility] Work Phone: Comment on above: The validity of the calculated GFR & GFRAA in patients over 70 years has not been determined. Clinical correlation is essential. Serum or plasma urea nitroge n measurement (mass/volume)on 07-23-2021 Urea nitrogen [Mass/Vol] 19 mg/dL 7-18 [facility] Work Phone: Thin prep Papanicolaou smear with manual screeningon 07-23-2021 Thin prep Papanicolaou smear with manual screening 23 U/L 15-37 [facility] Work Phone: Thin prep Papanicolaou smear with manual screening 3 5-15 [facility] Work Phone: Thin prep Papanicolaou smear with manual screening 28.3 mg/L NO RANGE EST. [facility] Work Phone: Urine creatinine measurement (mass/volume)on 07-23-2021 Creatinine (U) [Mass/Vol] 159.00 mg/dL NO RANGE EST. [facility] Work Phone: [facility] ENT Trial Examiner Progress Noteon 07-02-2021 [facility] ENT Trial Examiner Progress Note Patient: YARA BETH Age: 60 [...] earmolds or a cochlear implant. '' Normal [facility] FLOW CYTO PROFon 03-01-2021 CD10 MARKER 1 % Normal [facility] Comment on above: Order Comment: Heidi s: M Performed By: #### L [id number] #### [facility] [address] [place] [address] CD11B MARKER 8 % Normal [facility] Comment on above: Order Comment: Heidi s: M Performed By: #### L [id number] #### [facility] [address] [place] [address] CD19 % B CELL 9 % Normal [facility] Comment on above: Order Comment: Heidi s: M Performed By: #### L [id number] #### [facility] [address] [place] [address] CD2 MARKER 86 % Normal [facility] Comment on above: Order Comment: Heidi s: M Performed By: #### L [id number] #### [facility] [address] [place] [address] CD20 MARKER 7 % Normal [facility] Comment on above: Order Comment: Heidi s: M Performed By: #### L [id number] #### [facility] [address] [place] [address] CD23 MARKER 3 % Normal [facility] Comment on above: Order Comment: Heidi s: M Performed By: #### L [id number] #### [facility] [address] [place] [address] CD3 % T CELLS 71 % Normal [facility] Comment on above: Order Comment: Campu s: M Performed By: #### L [id number] #### [facility] [address] [place] [address] CD30 MARKER 1 % Normal [facility] Comment on above: Order Comment: Campu s: M Performed By: #### L .[id number] #### [facility] [address] [place] [address] CD38 MARKER 21 % Normal [facility] Comment on above: Order Comment: Campu s: M Performed By: #### L .[id number] #### [facility] [address] [place] [address] CD4 MARKER 60 % Normal [facility] Comment on above: Order Comment: Campu s: M Performed By: #### L .[id number] #### [facility] [address] [place] [address] CD43 MARKER 91 % Normal [facility] Comment on above: Order Comment: Campu s: M Performed By: #### L .[id number] #### [facility] [address] [place] [address] CD45 MARKER 100 % Normal [facility] Comment on above: Order Comment: Campu s: M Performed By: #### L .[id number] #### [facility] [address] [place] [address] CD5 MARKER 74 % Normal [facility] Comment on above: Order Comment: Campu s: M Performed By: #### L .[id number] #### [facility] [address] [place] [address] CD56 MARKER 19 % Normal [facility] Comment on above: Order Comment: Campu s: M Performed By: #### L [id number] #### [facility] [address] [place] [address] CD57 MARKER 7 % Normal [facility] Comment on above: Order Comment: Campu s: M Performed By: #### L [id number] #### [facility] [address] [place], [place] [id number] CD7 MARKER 82 % Normal [facility] Comment on above: Order Comment: Campu s: M Performed By: #### L [id number] #### [facility] [address] [place], [place] [id number] CD8 MARKER 19 % Normal [facility] Comment on above: Order Comment: Campu s: M Performed By: #### L [id number] #### [facility] [address] [place] [address] FDA COMMENT SEE COMMENT Normal [facility] Comment on above: Order Comment: Campu s: M Result Comment: THIS TEST WAS DEVELOPED AND ITS PERFORMANCE CHARACTERISTICS DETERMINED BY [facility]. IT HAS NOT BEEN CLEARED BY THE [place] FOOD AND DRUG ADMINISTRATION (FDA). THE FDA HAS DETERMINED THAT SUCH CLEARANCE OR APPROVAL IS NOT NECESSARY. FOR THE COMPLETE INTENDED USE STATEMENT, AND ANY ADDITIONAL INFORMATION, PLEASE SEE THE FULL FILED REPORT Performed By: #### L [id number] #### [facility] [address] [place] [address] [facility] Comment on above: Order Comment: Campu s: M Result Comment: COEX PRESSION CD19/CD10 0.0% CD19/CD5 0.3% CD19/CD5/CD38 % CD19/CD5/CD23 0.0% Performed By: #### L [id number] #### [facility] [address] [place], [place] [id number] FMC7 MARKER 1 % Normal [facility] Comment on above: Order Comment: Campu s: M Performed By: #### L [id number] #### [facility] [address] [place] [id number] HLA-DR MARKER 28 % Normal [facility] Comment on above: Order Comment: Campu s: M Performed By: #### L [id number] #### [facility] [address] [place] [address] KAPPA MARKER 5 % Normal [facility] Comment on above: Order Comment: Heidi s: M Performed By: #### L .[id number] #### [facility] [address] [place] [address] LAMBDA MARKER 4 % Normal [facility] Comment on above: Order Comment: Heidi s: M Performed By: #### L .65681 #### [facility] [address] [place] [address] [facility] Comment on above: Order Comment: Heidi s: [...] OF CD45 NEGATIVE EVENTS/DEBRIS. CLARENCE BLOOM D.O. 02/28/2021--[facility] [id number] Performed By: #### L 200.76819 #### [facility] [address] [place] [address] BMPon 02-27-2021 Anion gap [Moles/Vol] 3 mmol/L Low 5-16 [facility] Comment on above: Order Comment: Campu s: M Performed By: #### L 500.85766, L500.02830, L500.29278 #### [facility] [address] [place] [address] Calcium [Mass/Vol] 8.7 mg/dL Normal 8.5-10.5 [facility] Comment on above: Order Comment: Campu s: M Result Comment: NOTE NEW NORMAL RANGE DUE TO REAGENT CHANGE Performed By: #### L 500.50178, L500.57580, L500.08964 #### [facility] [address] [place] [address] Chloride [Moles/Vol] 110 mmol/L High 98-107 [facility] Comment on above: Order Comment: Campu s: M Performed By: #### L 500.41736, L500.85279, L500.13422 #### [facility] [address] [place] [address] CO2 [Moles/Vol] 28.0 mmol/L Normal 21-32 [facility] Comment on above: Order Comment: Campu s: M Performed By: #### L 500.70256, L500.56424, L500.71956 #### [facility] [address] [place] [address] Creatinine [Mass/Vol] 1.21 mg/dL High 0.510-0.950 [facility] Comment on above: Order Comment: Campu s: M Result Comment: Cori ents receiving either N-Acetylcysteine (NAC) or Metamizole prior to venipuncture, may have falsely depressed results. Performed By: #### L 500.26358, L500.32068, L500.39603 #### [facility] [address] [place], [place] [address] Glucose [Mass/Vol] 130 mg/dL High 70-100 [facility] Comment on above: Order Comment: Campu s: M Result Comment: 70-1 00- Normal Fasting; 100-125 Impaired Fasting; greater than 126 on more than one result- Diabetes. ADA guidelines. Results may be falsely elevated after the administration of Sulfapyridine. Results may be falsely depressed after the administration of Sulfasalazine. Performed By: #### L 500.24314, L500.40327, L500.71455 #### [facility] [address] [place] [address] Potassium [Moles/Vol] 4.0 mmol/L Normal 3.5-5.1 [facility] Comment on above: Order Comment: Campu s: M Result Comment: Slig ht Hemolysis, Result may be affected. Performed By: #### L 500.49497, L500.73896, L500.43318 #### [facility] [address] [place] [address] Sodium [Moles/Vol] 139 mmol/L Normal 136-145 [facility] Comment on above: Order Comment: Campu s: M Performed By: #### L 500.55914, L500.70755, L500.13796 #### [facility] [address] [place] [address] Urea nitrogen [Mass/Vol] 9 mg/dL Normal 7-26 [facility] Comment on above: Order Comment: Campu s: M Performed By: #### L 500.86907, L500.26051, L500.37006 #### [facility] [address] [place] [address] Urea nitrogen/Creatinine [Mass ratio] 7 mg/mg Low 15-24 [facility] Comment on above: Order Comment: Campu s: M Performed By: #### L 500.91264, L500.29836, L500.66676 #### [facility] [address] [place] [address] CBC W/DIFFon 02-27-2021 BASO ABS 0.00 K/CU MM Normal 0-0.2 [facility] Comment on above: Order Comment: Campu s: M Performed By: #### L 200.05772 #### [facility] [address] [place] [address] Basophils/100 WBC (Bld) 0.5 % Normal 0-2 M [facility] Comment on above: Order Comment: Campu s: M Performed By: #### L 200.84240 #### [facility] [address] [place] [address] EOS ABS 0.20 K/CU MM Normal 0-0.5 [facility] Comment on above: Order Comment: Campu s: M Performed By: #### L 200.00464 #### [facility] [address] [place] [address] Eosinophils/100 WBC (Bld) 4.2 % Normal 0-5 [facility] Comment on above: Order Comment: Campu s: M Performed By: #### L 200.21153 #### [facility] [address] [place] [address] IMMATR GRAN ABS 0.00 K/CU MM Normal Less than 2 [facility] Comment on above: Order Comment: Campu s: M Performed By: #### L 200.77434 #### [facility] [address] [place] [address] IMMATURE GRAN % 0.7 % Normal Less than 2 [facility] Comment on above: Order Comment: Campu s: M Performed By: #### L 200.23178 #### [facility] [address] [place] [address] LYMPH ABS 0.90 K/CU MM Normal 0.9-4.4 [facility] Comment on above: Order Comment: Campu s: M Performed By: #### L 200.11421 #### [facility] [address] [place] [address] Lymphocytes/100 WBC (Bld) 21.2 % Normal 20-40 [facility] Comment on above: Order Comment: Campu s: M Performed By: #### L 200.13387 #### [facility] [address] [place] [address] MONO ABS 0.30 K/CU MM Normal 0.1-1.1 [facility] Comment on above: Order Comment: Campu s: M Performed By: #### L 200.15634 #### [facility] [address] [place] [address] Monocytes/100 WBC (Bld) 6.5 % Normal 2-10 M [facility] Comment on above: Order Comment: Campu s: M Performed By: #### L 200.61599 #### [facility] [address] [place] [address] NEUTROPHIL ABS 2.90 K/CU MM Normal 2.0-8.3 [facility] Comment on above: Order Comment: Campu s: M Performed By: #### L 200.45207 #### [facility] [address] [place] [address] Neutrophils/100 WBC (Bld) 66.9 % Normal 45-75 [facility] Comment on above: Order Comment: Campu s: M Performed By: #### L 200.68336 #### [facility] [address] [place] [address] PLT EST MOD DECREASED Normal [facility] Comment on above: Order Comment: Campu s: M Performed By: #### L 200.83080 #### [facility] [address] [place] [address] POLY 1+ Normal [facility] Comment on above: Order Comment: Campu s: M Performed By: #### L 200.32107 #### [facility] [address] [place] [address] Erythrocyte distribution width (RBC) [Ratio] 13.7 % Normal 11-14.5 [facility] Comment on above: Order Comment: Campu s: M Performed By: #### L 200.33349 #### [facility] [address] [place] [address] Hematocrit (Bld) [Volume fraction] 33.1 % Low 35.0-47.0 [facility] Comment on above: Order Comment: Campu s: M Performed By: #### L 200.89639 #### [facility] [address] [place] [address] Hemoglobin (Bld) [Mass/Vol] 11.2 g/dL Low 11.5-15.5 [facility] Comment on above: Order Comment: Campu s: M Performed By: #### L 200.88272 #### [facility] [address] [place] [address] MCHC (RBC) [Mass/Vol] 33.8 g/dL Normal 32.0-36.0 [facility] Comment on above: Order Comment: Campu s: M Performed By: #### L 200.48189 #### [facility] [address] [place] [address] MCV (RBC) [Entitic vol] 95.9 fL Normal 80.0-99.0 [facility] Comment on above: Order Comment: Campu s: M Performed By: #### L 200.81949 #### [facility] [address] [place] [address] Nucleated RBC/100 WBC (Bld) [Ratio] 0.0 % Normal Less than 1 [facility] Comment on above: Order Comment: Campu s: M Performed By: #### L 200.49118 #### [facility] [address] [place] [address] Platelet mean volume (Bld) [Entitic vol] 10.2 fL Normal 9.4-12.4 [facility] Comment on above: Order Comment: Campu s: M Performed By: #### L 200.06315 #### [facility] [address] [place] [address] PLT 52 K/CU MM Low 150-450 [facility] Comment on above: Order Comment: Campu s: M Result Comment: Conf irmed by slide estimate.Repeated and verified. Performed By: #### L 200.73938 #### [facility] [address] [place] [address] RBC 3.45 M/CU MM Low 3.90-5.30 [facility] Comment on above: Order Comment: Campu s: M Performed By: #### L 200.18939 #### [facility] [address] [place] [address] WBC 4.3 K/CUMM Low 4.5-11.0 [facility] Comment on above: Order Comment: Campu s: M Performed By: #### L 200.95549 #### [facility] [address] [place] [address] DISCH.SUMon 02-27-2021 DISCH.[facility] Patient Name: YARA BETH [address] [place] [address] Date of : [address] [address] Unit Number: [id number] Discharge Summary Patient Status: DIS IN Attending [...] I discussed the postbiopsy events with physician assisted living assistant Zaida and Dr. Saleh from ENT. [...] and rep (more content not included)... Normal [facility] GFR ESTon 02-27-2021 IF AMER 55 [facility] Comment on above: Order Comment: Heidi carpenter: M Performed By: #### L 500.38264, L500.97740, L500.63693 #### [facility] [place] [address] IF non-AFR AMER 46 [facility] Comment on above: Order Comment: Kevinu s: M Performed By: #### L 500.43804, L500.11365, L500.57680 #### [facility] [address] [place] [address] GLUCOSE METERon 02-27-2021 Glucose [Mass/Vol] 134 mg/dL High 85-125 [facility] Glucose [Mass/Vol] 136 mg/dL High 85-125 [facility] Glucose [Mass/Vol] 112 mg/dL Normal 85-125 [facility] HGB A1C GLYCOHBon 02-27-2021 HbA1c (Bld) [Mass fraction] 8.8 % High 4.3-6.0 [facility] Comment on above: Order Comment: Kevinu s: M Performed By: #### L 550.06310 #### [facility] [address] [place] [address] MAGNESIUMon 02-27-2021 Magnesium [Mass/Vol] 1.4 mg/dL Low 1.6-2.6 [facility] Comment on above: Order Comment: Kevinu s: M Performed By: #### L 500.37085, L500.39161, L500.35833 #### [facility] [address] [place] [address] PROG.ENTon 02-27-2021 PROG.ENT [facility] Patient Name: YARA BETH [address] [place] [address] Date of : [address] [address] Unit Number: [id number] Progress Note-ENT Patient Status: ADM IN Attending Doctor: Skyler Fregoso DO Service Date: 02/27/21 1012 Progress Note - ENT Subjective Subjective: (2 ROS minimum) The patient states she is feeling better today with less pain in the neck Objective Nursing Vitals Vital Signs (Last) Result Date Time Pulse Ox 91 02/27 700 B/P 122/50 02/27 700 Temp 98.0 02/27 700 Pulse 89 09/08 0700 Resp 20 09/08 0700 O2 Delivery NASAL CANNULA 02/23 0046 [...] no purulence. Diagnostic Data Lab 24hr (CBC/BMP [facility]) 02/27/21 0746: Whole Bld Glucose 112 02/27/21 [...] Nam MD Verified/Reviewed by 02/27/[address] [facility] Progress Note-ENT Normal [facility] BMPon 02-26-2021 Anion gap [Moles/Vol] 3 mmol/L Low 5-16 [facility] Comment on above: Order Comment: Campu s: M Performed By: #### M 050.67701 #### [facility] [address] [place] [address] Calcium [Mass/Vol] 9.1 mg/dL Normal 8.5-10.5 [facility] Comment on above: Order Comment: Campu s: M Result Comment: NOTE NEW NORMAL RANGE DUE TO REAGENT CHANGE Performed By: #### M 050.77272 #### [facility] [address] [place] [address] Chloride [Moles/Vol] 108 mmol/L High 98-107 [facility] Comment on above: Order Comment: Campu s: M Performed By: #### M 050.37074 #### [facility] [address] [place] [address] CO2 [Moles/Vol] 31.0 mmol/L Normal 21-32 [facility] Comment on above: Order Comment: Campu s: M Performed By: #### M 050.86171 #### [facility] [address] [place] [address] Creatinine [Mass/Vol] 1.19 mg/dL High 0.510-0.950 [facility] Comment on above: Order Comment: Campu s: M Result Comment: Cori ents receiving either N-Acetylcysteine (NAC) or Metamizole prior to venipuncture, may have falsely depressed results. Performed By: #### M 050.61452 #### [facility] [place] [address] Glucose [Mass/Vol] 167 mg/dL High 70-100 [facility] Comment on above: Order Comment: Campu s: M Result Comment: 70-1 00- Normal Fasting; 100-125 Impaired Fasting; greater than 126 on more than one result- Diabetes. ADA guidelines. Results may be falsely elevated after the administration of Sulfapyridine. Results may be falsely depressed after the administration of Sulfasalazine. Performed By: #### M 050.84609 #### [facility] [address] [place] [address] Potassium [Moles/Vol] 4.2 mmol/L Normal 3.5-5.1 [facility] Comment on above: Order Comment: Campu s: M Performed By: #### M 050.50396 #### [facility] [address] [place] [address] Sodium [Moles/Vol] 142 mmol/L Normal 136-145 [facility] Comment on above: Order Comment: Campu s: M Performed By: #### M 050.33660 #### [facility] [address] [place] [address] Urea nitrogen [Mass/Vol] 9 mg/dL Normal 7-26 [facility] Comment on above: Order Comment: Campu s: M Performed By: #### M 050.31797 #### [facility] [address] [place] [address] Urea nitrogen/Creatinine [Mass ratio] 8 mg/mg Low 15-24 [facility] Comment on above: Order Comment: Campu s: M Performed By: #### M 050.84004 #### [facility] [address] [place] [address] GFR ESTon 02-26-2021 IF AMER [address] [facility] Comment on above: Order Comment: Campu s: M Performed By: #### M 050.72982 #### [facility] [address] [place] [address] IF non-AFR AMER [address] [facility] Comment on above: Order Comment: Kevinu s: M Performed By: #### M 050.06919 #### [facility] [address] [place] [address] GLUCOSE METERon 02-26-2021 Glucose [Mass/Vol] 133 mg/dL High 85-125 [facility] Glucose [Mass/Vol] 144 mg/dL High 85-125 [facility] [place] Glucose [Mass/Vol] 146 mg/dL High 85-125 [facility] [place] Glucose [Mass/Vol] 158 mg/dL High 85-125 [facility] [place] Glucose [Mass/Vol] 181 mg/dL High 85-125 [facility] 02-26-2021 Magnesium [Mass/Vol] 1.6 mg/dL Normal 1.6-2.6 [facility] Comment on above: Order Comment: Heidi s: M Performed By: #### M 050.99201 #### [facility] [address] [place] [address] PROG IMSon 02-26-2021 PROG [facility] Patient Name: YARA BETH [facility] Date of : [address] [place], [place] [address] Unit Number: [id number] Progress Note-Hospitalist Patient Status: ADM IN Attending [...] B/P 140/77 02/26 715 Temp 97.5 02/26 0715 Pulse 81 02/26 0715 Resp 20 02/26 715 O2 Delivery NASAL [...] cervical lymphadenopathy. Diagnostic Data: Lab 24hr (CBC/BMP [facility]) 02/26/21 1233: Whole Bld Glucose 146 H [...] Melanie Hooker MD Verified/Reviewed by 02/26/21 1436 [facility] Progress Note-Hospitalist [facility] PROG.ENTon 02-26-2021 PROG.ENT [facility] Patient Name: YARA BETH [address] Date of : [address] [place], [place] [address] Unit Number: [id number] Progress Note-ENT Patient Status: ADM IN Attending [...] Ox 93 02/26 0715 B/P 140/77 02/26 715 Temp 97.5 02/26 [...] erythema present. Diagnostic Data Lab 24hr (CBC/BMP [facility]) 02/26/21 0813: Whole Bld Glucose [...] Time Ruchi Cerda PAC Verified/Reviewed by 02/26/21 Leeann4 Fabien Saleh MD [facility] Progress Note-ENT [facility] PROG.NOTEon 02-26-2021 PROG.NOTE [facility] Patient Name: YARA BETH [address] Date of : [address] [place], [place] [address] Unit Number: [id number] Progress Note-Physician Patient Status: ADM IN Attending [...] No Rash Diagnostic Data: Lab 24hr (CBC/BMP [facility]) 02/26/21 0813: Whole Bld Glucose [...] De Jesus MD Verified/Reviewed by 02/26/21 1302 [facility] SURG TISSUEon 02-26-2021 SURG TISSUE GRAM STAIN [...] S MEROPENEM >8 R DAPTOMYCIN <1 S [facility] Comment on above: Order Comment: Heidi s: M: SPEC 4 AEROBIC SWAB RIGHT NECK MASS Performed By: #### M 100.31475 ####[facility] [id number] [place], [place] [address]Iq# [phone] ANAER CULTUREon 02-25-2021 ANAER CULTURE RESULT NO GROWTH OF ANAEROBES [facility] Comment on above: Order Comment: Kevinu s: M Performed By: #### L 500.62594, L500.26836, L500.78237 #### [facility] [address] [place] [address] BMPon 02-25-2021 Anion gap [Moles/Vol] 3 mmol/L Low 5-16 [facility] Comment on above: Order Comment: Kevinu s: M Performed By: #### L 500.90864, L500.52287, L500.63691 ####[facility] [id number] [place], [place] [address]Dl# [phone] Calcium [Mass/Vol] 8.7 mg/dL Normal 8.5-10.5 [facility] Comment on above: Order Comment: Campu s: M Result Comment: NOTE NEW NORMAL RANGE DUE TO REAGENT CHANGE Performed By: #### L 500.29423, L500.27213, L500.08547 ####[facility] [id number] [place], [place] [address]Yw# [phone] Chloride [Moles/Vol] 109 mmol/L High 98-107 [facility] Comment on above: Order Comment: Campu s: M Performed By: #### L 500.32566, L500.14797, L500.92861 ####[facility] [id number] [place], [place] [address]Sj# [phone] CO2 [Moles/Vol] 30.0 mmol/L Normal 21-32 [facility] Comment on above: Order Comment: Campu s: M Performed By: #### L 500.33048, L500.09037, L500.23440 ####[facility] [id number] [place], [place] [address]Fe# [phone] Creatinine [Mass/Vol] 1.17 mg/dL High 0.510-0.950 [facility] [place] Comment on above: Order Comment: Campu s: M Result Comment: Cori ents receiving either N-Acetylcysteine (NAC) or Metamizole prior to venipuncture, may have falsely depressed results. Performed By: #### L 500.61945, L500.64294, L500.54476 ####[facility] [id number] [place] [address]Xv# [phone] Glucose [Mass/Vol] 172 mg/dL High 70-100 [facility] Comment on above: Order Comment: Campu s: M Result Comment: 70-1 00- Normal Fasting; 100-125 Impaired Fasting; greater than 126 on more than one result- Diabetes. ADA guidelines. Results may be falsely elevated after the administration of Sulfapyridine. Results may be falsely depressed after the administration of Sulfasalazine. Performed By: #### L 500.37465, L500.38776, L500.20922 ####[facility] [id number] [place], [place] [address]Rn# [phone] Potassium [Moles/Vol] 4.0 mmol/L Normal 3.5-5.1 [facility] [place] Comment on above: Order Comment: Campu s: M Result Comment: Slig ht Hemolysis, Result may be affected. Performed By: #### L 500.42414, L500.90350, L500.72353 ####[facility] [id number] [place], [place] [address]Ww# [phone] Sodium [Moles/Vol] 142 mmol/L Normal 136-145 [facility] Comment on above: Order Comment: Campu s: M Performed By: #### L 500.47944, L500.38502, L500.57159 ####[facility] [id number] [place] [address]Ob# [phone] Urea nitrogen [Mass/Vol] 9 mg/dL Normal 7-26 [facility] Comment on above: Order Comment: Campu s: M Performed By: #### L 500.00688, L500.87011, L500.23041 ####[facility] [id number] [place], [place] [address]Yc# [phone] Urea nitrogen/Creatinine [Mass ratio] 8 mg/mg Low 15-24 [facility] Comment on above: Order Comment: Campu s: M Performed By: #### L 500.06708, L500.01117, L500.79457 ####[facility] [id number] [place], [place] [address]Nt# [phone] GFR ESTon 02-25-2021 IF AMER 57 Normal [facility] Comment on above: Order Comment: Campu s: M Performed By: #### L 500.19586, L500.29551, L500.87065 ####[facility] [id number] [place] [address]Cn# [phone] IF non-AFR AMER [address] [facility] Comment on above: Order Comment: Campu s: M Performed By: #### L 500.45472, L500.41749, L500.02287 ####[facility] [id number] [place], [place] [address]Cr# [phone] GLUCOSE METERon 02-25-2021 Glucose [Mass/Vol] 155 mg/dL High 85-125 [facility] Glucose [Mass/Vol] 152 mg/dL High 85-125 [facility] Glucose [Mass/Vol] 158 mg/dL High 85-125 [facility] MAGNESIUMon 02-25-2021 Magnesium [Mass/Vol] 1.4 mg/dL Low 1.6-2.6 [facility] Comment on above: Order Comment: Campu s: M Performed By: #### L 500.34368, L500.33089, L500.16052 ####[facility] [id number] [place], [place] [address]Pp# [phone] PROG IMSon 02-25-2021 PROG [facility] Patient Name: YARA BETH [address] [facility] [address] Date of : [address] [place] [address] Unit Number: [id number] Progress Note-Hospitalist Patient Status: ADM IN Attending [...] no diarrhea Diagnostic Data: [facility]hr ([facility] 02/25/21 1700: Whole Bld Glucose 155 H 02/25/21 1200: Whole Bld Glucose 152 H 02/25/21 0749: Whole Bld Glucose 158 H 02/25/21 0644: [Embedded Image Not Available] Anion Gap LESS THAN 3 L, Est GFR ( Amer) 57, Est GFR (Non-Af Amer) 48, BUN/ Creatinine Ratio 8 L, Glucose 172 H, Total Calcium 8.7, Magnesium 1.4 L 02/24/211: Whole Bld Glucose 188 H Assessment and [...] I discussed the postbiopsy events with physician assisted living assistant Zaida and Dr. Saleh from ENT. [...] being supplem (more content not included)... Normal [facility] Progress Note-Hospitalist [facility] PROG.ENTon 02-25-2021 PROG.ENT [facility] Patient Name: YARA BETH A [address] Date of : [address] [place] [id number] Unit Number: [id number] Progress Note-ENT Patient Status: ADM IN Attending [...] 1826 B/P Mean 83 / 1500 Physical Exam The area of induration [...] Saleh MD Verified/Reviewed by 02/25/[address] [facility] Progress Note-ENT Normal [facility] CDIF PCRon 02-24-2021 CDIF PCR Positive High NEGATIVE [facility] Comment on above: Order Comment: Heidi carpenter: Gianna Result Comment: A po sitive C.Difficile molecular test does not differentiate between C.Difficile disease and carriers of C.Difficile. Use clinical judgement and reflex testing to determine treatment options/disease state. Performed By: #### L 200.69802 #### [facility] [address] [place] [address] CDIFF AG/TOXINon 02-24-2021 CDIFF AG/TOXIN Negative Normal NEGATIVE [facility] Comment on above: Order Comment: Heidi carpenter: Gianna Result Comment: Posi tive for toxigenic C.Difficile gene but active toxin production NOT detected. May be a colonized carrier, or toxin level is below the limit of detection. CRITICAL VALUE(S) VERIFIED AND CALLED TO AND READ BACK BY MALLIKA ECHEVERRIA AT 1150 02/24/21 BY ANGIE MASON Performed By: #### L 200.94946 #### [facility] [address]# [phone] GLUCOSE METERon 02-24-2021 Glucose [Mass/Vol] 188 mg/dL High 85-125 [facility] Glucose [Mass/Vol] 285 mg/dL High 85-125 [facility] Glucose [Mass/Vol] 198 mg/dL High 85-125 [facility] Gl[facility] [Mass/Vol] 139 mg/dL High 85-125 [facility] PROG IMSon 02-24-2021 PROG [facility] Patient Name: YARA BETH [address] [facility] [address] Date of : [address] [place], [place] [address] Unit Number: [id number] Progress Note-Hospitalist Patient Status: ADM IN Attending [...] diarrhea Diagnostic Data: Lab 24hr (CBC/BMP Fishbone) 02/24/21 1625: Whole Bld Glucose 285 H 02/24/21 1117: Whole Bld Glucose 198 H 02/24/21 0831: Stl C.difficile Tox PCR POSITIVE see comment H, C. difficile Tox (PCR) NEGATIVE 02/24/21 0729: Whole Bld Glucose 139 H 02/23/212043: Whole Bld Glucose 246 H Assessment and [...] I discussed the postbiopsy events with physician assisted living assistant Zaida and Dr. Saleh from ENT. [...] I am addre (more content not included)... [facility] Progress Note-Hospitalist [facility] PROG.ENTon 02-24-2021 PROG.ENT [facility] Patient Name: YARA BETH A [address] Date of : [address] [place] [address] Unit Number: [id number] Progress Note-ENT Patient Status: ADM IN Attending [...] Saleh MD Verified/Reviewed by 02/24/[address] [facility] Progress Note-ENT [facility] SURG TISSUEon 02-24-2021 SURG TISSUE GRAM STAIN MANY WBC'S MANY GRAM POSITIVE COCCI FEW GRAM POSITIVE BACILLUS ORGANISM 1: MICROAEROPHILIC STREPTOCOCCUS QUANTITATION MODERATE ID TO FOLLOW NOT VIABLE FOR SENSITIVITY ORGANISM 2: DIPHTHEROIDS QUANTITATION FEW ID TO FOLLOW NOT VIABLE FOR SENSITIVITY Normal [facility] Comment on above: Order Comment: Campu s: M Performed By: #### L 500.49935, L500.55315, L500.56167 #### [facility] [place] [address] BMPon 02-23-2021 Anion gap [Moles/Vol] 7 mmol/L Normal 5-16 [facility] Comment on above: Order Comment: Campu s: M Performed By: #### L 500.31827, L500.56621, L500.30706 #### [facility] [place] [address] Calcium [Mass/Vol] 8.3 mg/dL Low 8.5-10.5 [facility] Comment on above: Order Comment: Campu s: M Result Comment: NOTE NEW NORMAL RANGE DUE TO REAGENT CHANGE Performed By: #### L 500.83880, L500.20225, L500.84086 #### [facility] [place] [address] Chloride [Moles/Vol] 105 mmol/L Normal 98-107 [facility] Comment on above: Order Comment: Campu s: M Performed By: #### L 500.82605, L500.80511, L500.98140 #### [facility] [address] [place] [address] CO2 [Moles/Vol] 29.0 mmol/L Normal 21-32 [facility] Comment on above: Order Comment: Campu s: M Performed By: #### L 500.32537, L500.50408, L500.10108 #### [facility] [address] [place] [address] Creatinine [Mass/Vol] 1.30 mg/dL High 0.510-0.950 [facility] Comment on above: Order Comment: Campu s: M Result Comment: Cori ents receiving either N-Acetylcysteine (NAC) or Metamizole prior to venipuncture, may have falsely depressed results. Performed By: #### L 500.56758, L500.19928, L500.51734 #### [facility] [address] [place] [address] Glucose [Mass/Vol] 135 mg/dL High 70-100 [facility] Comment on above: Order Comment: Campu s: M Result Comment: 70-1 00- Normal Fasting; 100-125 Impaired Fasting; greater than 126 on more than one result- Diabetes. ADA guidelines. Results may be falsely elevated after the administration of Sulfapyridine. Results may be falsely depressed after the administration of Sulfasalazine. Performed By: #### L 500.00010, L500.55283, L500.12111 #### [facility] [address] [place] [address] Potassium [Moles/Vol] 4.0 mmol/L Normal 3.5-5.1 [facility] Comment on above: Order Comment: Campu s: M Result Comment: Slig ht Hemolysis, Result may be affected. Performed By: #### L 500.21801, L500.07799, L500.50215 #### [facility] [address] [place], [place] [address] Sodium [Moles/Vol] 141 mmol/L Normal 136-145 [facility] Comment on above: Order Comment: Campu s: M Performed By: #### L 500.79288, L500.74200, L500.95940 #### [facility] [address] [place] [address] Urea nitrogen [Mass/Vol] 14 mg/dL Normal 7-26 [facility] Comment on above: Order Comment: Campu s: M Performed By: #### L 500.79344, L500.21571, L500.00845 #### [facility] [address] [place] [address] Urea nitrogen/Creatinine [Mass ratio] 11 mg/mg Low 15-24 [facility] Comment on above: Order Comment: Campu s: M Performed By: #### L 500.92869, L500.65878, L500.32832 #### [facility] [address] [place] [address] CBC W/DIFFon 02-23-2021 ATYP LYMPH % 0.0 % Normal [facility] Comment on above: Order Comment: Campu s: M Performed By: #### L 550.53134 #### [facility] [address] [place] [address] BAND ABS 0.37 K/CU MM Normal [facility] Comment on above: Order Comment: Campu s: M Performed By: #### L 550.33072 #### [facility] [address] [place], [place] [address] Band form neutrophils/100 WBC (Bld) 5.0 % Normal 0-7 [facility] Comment on above: Order Comment: Campu s: M Performed By: #### L 550.86361 #### [facility] [address] [place] [address] Basophils/100 WBC (Bld) 0.0 % Normal 0-2 M [facility] Comment on above: Order Comment: Campu s: M Performed By: #### L 550.01613 #### [facility] [address] [place] [address] BLAST % 0.0 % Normal 0 [facility] Comment on above: Order Comment: Campu s: M Performed By: #### L 550.94467 #### [facility] [address] [place] [address] EOS ABS 0.07 K/CU MM Normal 0-0.5 [facility] Comment on above: Order Comment: Campu s: M Performed By: #### L 550.94308 #### [facility] [address] [place] [address] Eosinophils/100 WBC (Bld) 1.0 % Normal 0-5 [facility] Comment on above: Order Comment: Campu s: M Performed By: #### L 550.93050 #### [facility] [address] [place] [address] Erythrocyte distribution width (RBC) [Ratio] 13.1 % Normal 11-14.5 [facility] Comment on above: Order Comment: Campu s: M Performed By: #### L 550.68100 #### [facility] [address] [place] [address] Hematocrit (Bld) [Volume fraction] 34.5 % Low 35.0-47.0 [facility] Comment on above: Order Comment: Campu s: M Performed By: #### L 550.91161 #### [facility] [address] [place], [place] [address] Hemoglobin (Bld) [Mass/Vol] 11.5 g/dL Normal 11.5-15.5 [facility] Comment on above: Order Comment: Campu s: M Performed By: #### L 550.34467 #### [facility] [address] [place], [place] [address] LYMPH ABS 1.18 K/CU MM Normal 0.9-4.4 [facility] Comment on above: Order Comment: Campu s: M Performed By: #### L 550.32171 #### [facility] [address] [place] [address] Lymphocytes/100 WBC (Bld) 16.0 % Low 20-40 [facility] Comment on above: Order Comment: Campu s: M Performed By: #### L 550.60717 #### [facility] [address] [place] [address] MCHC (RBC) [Mass/Vol] 33.3 g/dL Normal 32.0-36.0 [facility] Comment on above: Order Comment: Campu s: M Performed By: #### L 550.72355 #### [facility] [address] [place] [address] MCV (RBC) [Entitic vol] 95.6 fL Normal 80.0-99.0 [facility] Comment on above: Order Comment: Campu s: M Performed By: #### L 550.25883 #### [facility] [address] [place] [address] META % 0.0 % Normal [facility] Comment on above: Order Comment: Campu s: M Performed By: #### L 550.50861 #### [facility] [address] [place] [address] MONO ABS 0.37 K/CU MM Normal 0.1-1.1 [facility] Comment on above: Order Comment: Campu s: M Performed By: #### L 550.81077 #### [facility] [address] [place], [place] [address] Monocytes/100 WBC (Bld) 5.0 % Normal 2-10 M [facility] Comment on above: Order Comment: Campu s: M Performed By: #### L 550.83250 #### [facility] [address] [place], [place] [address] MYELOCYTE % 0.0 % Normal [facility] Comment on above: Order Comment: Campu s: M Performed By: #### L 550.42570 #### [facility] [address] [place] [address] NC/NC NORMOCYTIC Normal [facility] Comment on above: Order Comment: Campu s: M Performed By: #### L 550.19708 #### [facility] [address] [place] [address] NEUTROPHIL ABS 5.40 K/CU MM Normal 2.0-8.3 [facility] Comment on above: Order Comment: Campu s: M Performed By: #### L 550.40623 #### [facility] [address] [place] [address] Neutrophils/100 WBC (Bld) 73.0 % Normal 45-75 [facility] Comment on above: Order Comment: Campu s: M Performed By: #### L 550.17336 #### [facility] [address] [place] [address] Nucleated RBC/100 WBC (Bld) [Ratio] 0.0 % Normal Less than 1 [facility] Comment on above: Order Comment: Campu s: M Performed By: #### L 550.85552 #### [facility] [address] [place], [place] [address] OTHER % 0 % Normal [facility] Comment on above: Order Comment: Campu s: M Performed By: #### L 550.10560 #### [facility] [address] [place], [place] [address] Platelet mean volume (Bld) [Entitic vol] 10.3 fL Normal 9.4-12.4 [facility] Comment on above: Order Comment: Campu s: M Performed By: #### L 550.86196 #### [facility] [place] [address] PLT 60 K/CU MM Low 150-450 [facility] Comment on above: Order Comment: Campu s: M Result Comment: Conf irmed by slide estimate. Performed By: #### L 550.81135 #### [facility] [address] [place] [address] PLT EST MOD DECREASED Normal [facility] Comment on above: Order Comment: Campu s: M Performed By: #### L 550.40947 #### [facility] [address] [place] [address] POLY 1+ Normal [facility] Comment on above: Order Comment: Campu s: M Performed By: #### L 550.83407 #### [facility] [address] [place], [place] [address] PROMYELOCYTE % 0.0 % Normal [facility] Comment on above: Order Comment: Campu s: M Performed By: #### L 550.52470 #### [facility] [address] [place], [place] [address] RBC 3.61 M/CU MM Low 3.90-5.30 [facility] Comment on above: Order Comment: Campu s: M Performed By: #### L 550.36502 #### [facility] [address] [place] [address] WBC 7.4 K/CUMM Normal 4.5-11.0 [facility] Comment on above: Order Comment: Campu s: M Result Comment: Conf irmed by slide estimate. Performed By: #### L 550.56811 #### [facility] [address] [place], [place] [address] GFR ESTon 02-23-2021 IF AMER [address] [facility] Comment on above: Order Comment: Campu s: M Performed By: #### L 500.99204, L500.86704, L500.34666 #### [facility] [address] [place] [address] IF non-AFR AMER [address] [facility] Comment on above: Order Comment: Campu s: M Performed By: #### L 500.37475, L500.00441, L500.16451 #### [facility] [address] [place] [address] GLUCOSE METERon 02-23-2021 Glucose [Mass/Vol] 246 mg/dL High 85-125 [facility] Glucose [Mass/Vol] 137 mg/dL High 85-125 [facility] Glucose [Mass/Vol] 238 mg/dL High 85-125 [facility] Glucose [Mass/Vol] 114 mg/dL Normal 85-125 [facility] MAGNESIUMon 02-23-2021 Magnesium [Mass/Vol] 1.9 mg/dL Normal 1.6-2.6 [facility] Comment on above: Order Comment: Campu s: M Performed By: #### L 500.10576, L500.62043, L500.95339 #### [facility] [address] [place] [address] PROG IMS 02-23-2021 PROG [facility] Patient Name: YARA BETH [address] [place] [address] Date of : [address] [place] [address] Unit Number: [id number] Progress Note-Hospitalist Patient Status: ADM IN Attending [...] no diarrhea Diagnostic Data: Lab 24hr (CBC/BMP [facility]) 02/23/21 1640: Whole Bld Glucose [...] 1+ 02/22/212048: Whole Bld Glucose 230 H 02/22/21 2000: [...] I discussed the postbiopsy events with physician assisted living assistant Zaida and Dr. Saleh from ENT. I called and updated Dr. De Jesus from infectious disease as well. We will continue Zosyn and vancomycin while awaiting culture results. 02/21/2021: Has received a couple of IV fluid boluses overnight and this morning for borderline hypotension. Blood pressure is currently improved and Yara has been cleare (more content not included)... [facility] Progress Note-Hospitalist [facility] PROG.ENTon 02-23-2021 PROG.ENT [facility] Patient Name: YARA BETH A [address] Date of : [address] [place] [address] Unit Number: [id number] Progress Note-ENT Patient Status: ADM IN Attending [...] the bedside. Diagnostic Data Lab 24hr (CBC/BMP [facility]) 02/23/21 0735: Whole Bld Glucose [...] MOD DECREASED, Normocytic RBCs NORMOCYTIC, Polychromasia 1+ 02/22/219: Whole Bld Glucose 230 H 02/22/21 2000: Vancomycin Trough Cancelled 02/22/21 1637: Whole Bld Glucose 183 H 02/22/21 1413: Whole Bld Glucose 143 H 02/22/21 1330: Flow Cytometry Comment Pending, Flow Cytom Path Interp Pending 02/22/21 1132: Whole Bld Glucose 156 H Recent Impressions (72hr) SPECIAL PROCEDURES - US GUIDANCE FOR NEEDLE BX 02/20 1110 Report Impression - Status: SIGNED Entered: 02/20/2021 141 IMPRESSION: Successful ultrasound-guided right neck mass biopsy. [...] Fabien Saleh MD Verified/Reviewed by 02/23/21 1002 [facility] BLOOD CULTUREon 02-22-2021 Bacteria identified Cx Nom (Bld) NO GROWTH AFTER 5 DAYS [facility] Comment on above: Order Comment: Heidi carpenter: M Performed By: #### M 050.21709 #### [facility] [address] [place] [address] Performed By: #### M 050.15815 ####[facility] [id number] [place], [place] [phone]# [phone] BMPon 02-22-2021 Anion gap [Moles/Vol] 4 mmol/L Low 5-16 [facility] Comment on above: Order Comment: Campu s: M Performed By: #### L 500.38041, L500.80224, L500.26515 #### [facility] [address] [place] [place] [address] Calcium [Mass/Vol] 8.4 mg/dL Low 8.5-10.5 [facility] Comment on above: Order Comment: Campu s: M Result Comment: NOTE NEW NORMAL RANGE DUE TO REAGENT CHANGE Performed By: #### L 500.76328, L500.17913, L500.92199 #### [facility] [address] [place], [place] [address] Chloride [Moles/Vol] 107 mmol/L Normal 98-107 [facility] Comment on above: Order Comment: Campu s: M Performed By: #### L 500.11573, L500.89052, L500.07339 #### [facility] [address] [place] [address] CO2 [Moles/Vol] 29.0 mmol/L Normal 21-32 [facility] Comment on above: Order Comment: Campu s: M Performed By: #### L 500.58015, L500.73432, L500.44676 #### [facility] [address] [place] [address] Creatinine [Mass/Vol] 1.48 mg/dL High 0.510-0.950 [facility] Comment on above: Order Comment: Campu s: M Result Comment: Cori ents receiving either N-Acetylcysteine (NAC) or Metamizole prior to venipuncture, may have falsely depressed results. Performed By: #### L 500.09754, L500.78459, L500.66908 #### [facility] [address] [place] [place] [address] Glucose [Mass/Vol] 195 mg/dL High 70-100 [facility] Comment on above: Order Comment: Campu s: M Result Comment: 70-1 00- Normal Fasting; 100-125 Impaired Fasting; greater than 126 on more than one result- Diabetes. ADA guidelines. Results may be falsely elevated after the administration of Sulfapyridine. Results may be falsely depressed after the administration of Sulfasalazine. Performed By: #### L 500.30054, L500.21753, L500.40094 #### [facility] [address] [place] [address] Potassium [Moles/Vol] 4.1 mmol/L Normal 3.5-5.1 [facility] Comment on above: Order Comment: Campu s: M Performed By: #### L 500.17393, L500.78752, L500.88501 #### [facility] [address] [place] [address] Sodium [Moles/Vol] 140 mmol/L Normal 136-145 [facility] Comment on above: Order Comment: Campu s: M Performed By: #### L 500.78210, L500.78421, L500.57855 #### [facility] [address] [place], [place] [address] Urea nitrogen [Mass/Vol] 18 mg/dL Normal 7-26 [facility] Comment on above: Order Comment: Campu s: M Performed By: #### L 500.42426, L500.34169, L500.32728 #### [facility] [address] [place] [address] Urea nitrogen/Creatinine [Mass ratio] 12 mg/mg Low 15-24 [facility] Comment on above: Order Comment: Campu s: M Performed By: #### L 500.72772, L500.68186, L500.81741 #### [facility] [address] [place] [address] CBC W/DIFFon 02-22-2021 BASO ABS 0.00 K/CU MM Normal 0-0.2 [facility] Comment on above: Order Comment: Campu s: M Performed By: #### M 050.46279 #### [facility] [address] [place] [address] Basophils/100 WBC (Bld) 0.3 % Normal 0-2 [facility] Comment on above: Order Comment: Campu s: M Performed By: #### M 050.75697 #### [facility] [address] [place] [address] EOS ABS 0.10 K/CU MM Normal 0-0.5 [facility] Comment on above: Order Comment: Campu s: M Performed By: #### M 050.80511 #### [facility] [address] [place] [address] Eosinophils/100 WBC (Bld) 1.7 % Normal 0-5 [facility] Comment on above: Order Comment: Campu s: M Performed By: #### M 050.71914 #### [facility] [address] [place] [address] Erythrocyte distribution width (RBC) [Ratio] 12.9 % Normal 11-14.5 [facility] Comment on above: Order Comment: Campu s: M Performed By: #### M 050.66203 #### [facility] [address] [place] [address] Hematocrit (Bld) [Volume fraction] 33.7 % Low 35.0-47.0 [facility] Comment on above: Order Comment: Campu s: M Performed By: #### M 050.45637 #### [facility] [address] [place] [address] Hemoglobin (Bld) [Mass/Vol] 11.5 g/dL Normal 11.5-15.5 [facility] Comment on above: Order Comment: Campu s: M Performed By: #### M 050.60328 #### [facility] [address] [place] [address] IMMATR GRAN ABS 0.10 K/CU MM Normal Less than 2 [facility] Comment on above: Order Comment: Campu s: M Performed By: #### M 050.89438 #### [facility] [address] [place] [address] IMMATURE GRAN % 0.8 % Normal Less than 2 [facility] Comment on above: Order Comment: Campu s: M Performed By: #### M 050.05625 #### [facility] [address] [place] [address] LYMPH ABS 1.00 K/CU MM Normal 0.9-4.4 [facility] Comment on above: Order Comment: Campu s: M Performed By: #### M 050.72393 #### [facility] [address] [place] [address] Lymphocytes/100 WBC (Bld) 14.8 % Low 20-40 [facility] Comment on above: Order Comment: Campu s: M Performed By: #### M 050.12995 #### [facility] [address] [place] [address] MCHC (RBC) [Mass/Vol] 34.1 g/dL Normal 32.0-36.0 [facility] Comment on above: Order Comment: Campu s: M Performed By: #### M 050.86303 #### [facility] [address] [place] [address] MCV (RBC) [Entitic vol] 93.9 fL Normal 80.0-99.0 M [facility] Comment on above: Order Comment: Campu s: M Performed By: #### M 050.31221 #### [facility] [place] [address] MONO ABS 0.60 K/CU MM Normal 0.1-1.1 [facility] Comment on above: Order Comment: Campu s: M Performed By: #### M 050.51553 #### [facility] [address] [place] [address] Monocytes/100 WBC (Bld) 8.6 % Normal 2-10 M [facility] Comment on above: Order Comment: Campu s: M Performed By: #### M 050.72905 #### [facility] [address] [place] [place] [address] NEUTROPHIL ABS 4.90 K/CU MM Normal 2.0-8.3 [facility] Comment on above: Order Comment: Campu s: M Performed By: #### M 050.36473 #### [facility] [address] [place], [place] [address] Neutrophils/100 WBC (Bld) 73.8 % Normal 45-75 [facility] Comment on above: Order Comment: Campu s: M Performed By: #### M 050.72607 #### [facility] [address] [place], [place] [address] Nucleated RBC/100 WBC (Bld) [Ratio] 0.0 % Normal Less than 1 [facility] Comment on above: Order Comment: Campu s: M Performed By: #### M 050.76162 #### [facility] [address] [place] [address] Platelet mean volume (Bld) [Entitic vol] 10.9 fL Normal 9.4-12.4 [facility] Comment on above: Order Comment: Campu s: M Performed By: #### M 050.57919 #### [facility] [address] [place] [address] PLT 53 K/CU MM Low 150-450 [facility] Comment on above: Order Comment: Campu s: M Result Comment: Conf irmed by slide estimate. Performed By: #### M 050.29547 #### [facility] [address] [place], [place] [address] PLT EST MOD DECREASED Normal [facility] Comment on above: Order Comment: Campu s: M Performed By: #### M 050.81840 #### [facility] [address] [place] [place] [address] POIK 1+ Normal [facility] Comment on above: Order Comment: Campu s: M Performed By: #### M 050.92606 #### [facility] [address] [place] [place] [address] RBC 3.59 M/CU MM Low 3.90-5.30 [facility] Comment on above: Order Comment: Campu s: M Performed By: #### M 050.00392 #### [facility] [address] [place], [place] [address] WBC 6.6 K/CUMM Normal 4.5-11.0 [facility] Comment on above: Order Comment: Campu s: M Result Comment: Conf irmed by slide estimate. Performed By: #### M 050.33078 #### [facility] [address] [place] [place] [address] GFR ESTon 02-22-2021 IF AMER 44 [facility] Comment on above: Order Comment: Campu s: M Performed By: #### L 500.12411, L500.12812, L500.26500 #### [facility] [address] [place] [place] [address] IF non-AFR AMER 36 [facility] Comment on above: Order Comment: Campu s: M Performed By: #### L 500.88447, L500.86926, L500.68622 #### [facility] [address] [place] [place] [address] GLUCOSE METERon 02-22-2021 Glucose [Mass/Vol] 230 mg/dL High 85-125 [facility] [place] Glucose [Mass/Vol] 183 mg/dL High 85-125 [facility] [place] Glucose [Mass/Vol] 143 mg/dL High 85-125 [facility] [place] Glucose [Mass/Vol] 156 mg/dL High 85-125 [facility] [place] Glucose [Mass/Vol] 164 mg/dL High 85-125 [facility] LACTIC ACIDon 02-22-2021 Lactate [Moles/Vol] 1.59 mmol/L Normal 0.40-2.00 [facility] Comment on above: Order Comment: Campu s: M Performed By: #### L 550.75292 #### [facility] [address] [place] [address] MAGNESIUMon 02-22-2021 Magnesium [Mass/Vol] 1.3 mg/dL Low 1.6-2.6 [facility] Comment on above: Order Comment: Campu s: M Performed By: #### L 500.83536, L500.85662, L500.07274 #### [facility] [address] [place] [address] PHA.NOTEon 02-22-2021 PHA.NOTE [facility] Patient Name: YARA BETH [address] [place] [address] Date of : [address] [place] [address] Unit Number: [id number] Pharmacy Note Patient Status: ADM IN Attending Doctor: Skyler Fregoso DO Service Date: 02/22/212151 Pharmacy Note - VANCO Sign Off Note: ID discontinued Vancomycin. Pharmacy will sign-off. Thank you for the consult. Disclaimer This dictation was created using voice recognition software. Phonetic and/or minor grammatical errors may exist. eSign Date and Time Sy Ceron Verified/Reviewed by 02/22/212151 Venkat Raphael PharmD Normal [facility] Pharmacy Note Normal [facility] PROG [facility] 02-22-2021 PROG [facility] Patient Name: YARA BETH [address] Date of : [address] [place] [address] Unit Number: [id number] Progress Note-Hospitalist Patient Status: ADM IN Attending [...] Resp 22 02/22 1524 B/P Mean 83 / 1500 General Appearance Sitting up in bed, [...] no diarrhea Diagnostic Data: Lab 24hr (CBC/BMP [facility]) 02/22/21 1637: Whole Bld Glucose [...] I discussed the postbiopsy events with physician assisted living assistant Zaida and Dr. Saleh from ENT. I called and updated Dr. De Jesus from infectious disease as well. We will continue Zosyn and vancomycin while awaiting culture results. 02/21/2021: Has received a couple of IV fluid boluses (more content not included)... [facility] Progress Note-Hospitalist [facility] SURGon 02-22-2021 SURG ---- Patient: YARA BETH A SPECIMEN: [id number] Collection Date: 02/22/21 Received: 02/22/21 Status: PRISCILA Marie Dr.: Skyler Fregoso DO Ph# Ot. Dr.: Prashant Hernandez MD, Ot. Dr.: Darryl Nam Material for Examination: [...] on February 22, 2021 at 1306 hrs. [facility] NAME: YARA BETH [facility] UNIT#: [id number] LOC: [facility] Washer Off: Jenna Hernandez M.D. [id number] ROOM/BED: [id number] Edgar Online : 64 AGE/SEX: 60/F ORD.Skyler Lea DO CONTINUED ON NEXT PAGE Patient: YARA BETH Unit#: [id number] (continued) SPECIMEN: [id number] GROSS DESCRIPTION A. The [...] Gross examination only. COPIES TO: Prashant Hernandez MD,Darryl Holcomb Signed Verified/Reviewed by CLARENCE BLOOM D.O. 02/28/21 This dictation was created using voice recognition software. Phonetic and/or minor grammatical errors may exist. [facility] NAME: YARA BETH [facility] UNIT#: [id number] LOC: H.8M Washer Off: Jenna Hernandez M.D. [facility] [id number] ROOM/BED: [id number] [employer] Online : 64 AGE/SEX: 60/F ORD.Skyler Lea DO END OF REPORT Normal [facility] SURG TISSUEon 02-22-2021 SURG TISSUE GRAM STAIN FEW WBC'S NO ORGANISMS SEEN ORGANISM 1: MICROAEROPHILIC STREPTOCOCCUS QUANTITATION MODERATE ID TO FOLLOW NOT VIABLE FOR SENSITIVITY Normal [facility] Comment on above: Order Comment: Campu s: MNECK NEEDLE ASPIRATION Performed By: #### M 100.28047 ####[facility] [id number] [place], [place] [address]Iz# [phone] GLUCOSE METERon 02-21-2021 Glucose [Mass/Vol] 210 mg/dL High 85-125 [facility] Glucose [Mass/Vol] 233 mg/dL High 85-125 [facility] Glucose [Mass/Vol] 202 mg/dL High 85-125 [facility] Glucose [Mass/Vol] 217 mg/dL High 85-125 [facility]-21-2021 PR[facility] Patient Name: YARA BETH [address] [facility] [address] Date of : [address] [place] [place] [address] Unit Number: [id number] Progress Note-Hospitalist Patient Status: ADM IN Attending [...] diarrhea Diagnostic Data: Lab 24hr (CBC/BMP [facility]) 02/21/21 0821: Whole Bld Glucose 217 H 02/20/21 2117: Whole Bld Glucose 347 H 02/20/21 2000: Vancomycin Trough Cancelled 02/20/21 1836: Vancomycin Trough 11.4 L 02/20/21 1654: Whole Bld Glucose 167 H 02/20/21 1436: Lactic Acid 3.53 H 02/20/21 1336: Procalcitonin 0.33 02/20/21 1336: Mje-X-Twcquxlubpo Pept 111 02/20/21 1300: Whole Bld Glucose [...] I discussed the postbiopsy events with physician assisted living assistant Zaida and Dr. Saleh from ENT. [...] concur with pulmonary/cr (more content not included)... Normal [facility] Progress Note-Hospitalist Normal [facility] PROG.ENTon 02-21-2021 PROG.ENT [facility] Patient Name: YARA BETH A [address] Date of : [address] [place] [address] Unit Number: [id number] Progress Note-ENT Patient Status: ADM IN Attending [...] this area. Diagnostic Data Lab 24hr (CBC/BMP [facility]) 02/21/21 1142: Whole Bld Glucose 202 H [...] Clifton Lo MD Verified/Reviewed by 02/21/21 1615 [facility] Progress Note-ENT [facility] PROG.Louise 02-21-2021 PROG.[facility] Patient Name: YARA BETH [address] Date of : 64 [place], [place] [address] Unit Number: [id number] Progress Note-Jack Spooler Tender Patient Status: ADM IN Attending Doctor: Skyler Fregoso DO Service Date: 02/21/21725 Progress Note-Jack Spooler Tender Subjective Subjective: Patient denies fever chills. No [...] Ringers) IV 1417 Magnesium Hydroxide 30 ML [id number] PRN 02/18 1200 AC (MILK OF MAGNESIA [...] MAYTE Negrete (more content not included)... Normal [facility] Progress Note-Jack Spooler Tender Normal [facility] PROG.NOTEon 02-21-2021 PROG.NOTE [facility] Patient Name: YARA BETH [address] Date of : [address] [place], [place] [address] Unit Number: [id number] Progress Note-Physician Patient Status: ADM IN Attending [...] No Rash Diagnostic Data: Lab 24hr (CBC/BMP [facility]) 02/21/21 0821: Whole Bld Glucose 217 H 02/20/21 2117: Whole Bld Glucose 347 H 02/20/21 2000: Vancomycin Trough Cancelled 02/20/21 1836: Vancomycin Trough 11.4 L 02/20/21 1654: Whole Bld Glucose 167 H 02/20/21 1436: Lactic Acid 3.53 H 02/20/21 1336: Procalcitonin 0.33 02/20/21 1336: Dfc-P-Fqxgfthkyqd Pept 111 02/20/21 1300: Whole Bld Glucose [...] De Jesus MD Verified/Reviewed by 02/21/[address] [facility] Progress Note-Physician Normal M [facility] BMPon 02-20-2021 Anion gap [Moles/Vol] 5 mmol/L Normal 5-16 [facility] Comment on above: Order Comment: Campu s: M Performed By: #### M 050.64404 #### [facility] [address] [place] [address] Calcium [Mass/Vol] 8.3 mg/dL Low 8.5-10.5 [facility] Comment on above: Order Comment: Campu s: M Result Comment: NOTE NEW NORMAL RANGE DUE TO REAGENT CHANGE Performed By: #### M 050.55218 #### [facility] [address] [place] [address] Chloride [Moles/Vol] 106 mmol/L Normal 98-107 [facility] Comment on above: Order Comment: Campu s: M Performed By: #### M 050.94436 #### [facility] [address] [place] [address] CO2 [Moles/Vol] 26.0 mmol/L Normal 21-32 [facility] Comment on above: Order Comment: Campu s: M Performed By: #### M 050.32313 #### [facility] [place] [address] Creatinine [Mass/Vol] 1.54 mg/dL High 0.510-0.950 [facility] Comment on above: Order Comment: Campu s: M Result Comment: Cori ents receiving either N-Acetylcysteine (NAC) or Metamizole prior to venipuncture, may have falsely depressed results. Performed By: #### M 050.19013 #### [facility] [address] [place] [address] Glucose [Mass/Vol] 213 mg/dL High 70-100 [facility] Comment on above: Order Comment: Campu s: M Result Comment: 70-1 00- Normal Fasting; 100-125 Impaired Fasting; greater than 126 on more than one result- Diabetes. ADA guidelines. Results may be falsely elevated after the administration of Sulfapyridine. Results may be falsely depressed after the administration of Sulfasalazine. Performed By: #### M 050.86806 #### [facility] [address] [place] [address] Potassium [Moles/Vol] 4.3 mmol/L Normal 3.5-5.1 [facility] Comment on above: Order Comment: Campu s: M Result Comment: Slig ht Hemolysis, Result may be affected. Performed By: #### M 050.89385 #### [facility] [address] [place] [address] Sodium [Moles/Vol] 137 mmol/L Normal 136-145 [facility] Comment on above: Order Comment: Campu s: M Performed By: #### M 050.12864 #### [facility] [address] [place] [address] Urea nitrogen [Mass/Vol] 18 mg/dL Normal 7-26 [facility] Comment on above: Order Comment: Campu s: M Performed By: #### M 050.55872 #### [facility] [address] [place] [address] Urea nitrogen/Creatinine [Mass ratio] 12 mg/mg Low 15-24 [facility] Comment on above: Order Comment: Campu s: M Performed By: #### M 050.90456 #### [facility] [address] [place] [address] BODY FLDon 02-20-2021 BODY FLD This report has been cancelled Normal [facility] Comment on above: Order Comment: Campu s: M CBC W/DIFFon 02-20-2021 BASO ABS 0.00 K/CU MM Normal 0-0.2 [facility] Comment on above: Order Comment: Campu s: M Performed By: #### L 200.56528 ####[facility] [id number] [place], [place] [address]Dd# [phone] Basophils/100 WBC (Bld) 0.4 % Normal 0-2 M [facility] [place] Comment on above: Order Comment: Campu s: M Performed By: #### L 200.68382 ####[address] [address]Gn# [phone] EOS ABS 0.10 K/CU MM Normal 0-0.5 [facility] Comment on above: Order Comment: Campu s: M Performed By: #### L 200.69971 ####[address] [address]Ys# [phone] Eosinophils/100 WBC (Bld) 1.8 % Normal 0-5 [facility] Comment on above: Order Comment: Campu s: M Performed By: #### L 200.85106 ####[address] [address]Fy# [phone] Erythrocyte distribution width (RBC) [Ratio] 12.9 % Normal 11-14.5 [facility] Comment on above: Order Comment: Campu s: M Performed By: #### L 200.72372 ####[address] [address]Eb# [phone] Hematocrit (Bld) [Volume fraction] 35.1 % Normal 35.0-47.0 [facility] Comment on above: Order Comment: Campu s: M Performed By: #### L 200.07363 ####[facility] [id number] [place] [address]Bi# [phone] Hemoglobin (Bld) [Mass/Vol] 12.2 g/dL Normal 11.5-15.5 [facility] Comment on above: Order Comment: Campu s: M Performed By: #### L 200.39941 ####[facility] [id number] [place], [place] [address]Ph# [phone] IMMATR GRAN ABS 0.10 K/CU MM Normal Less than 2 [facility] [place] Comment on above: Order Comment: Campu s: M Performed By: #### L 200.82673 ####[facility] [id number] [place] [address]Tk# [phone] IMMATURE GRAN % 0.6 % Normal Less than 2 [facility] Comment on above: Order Comment: Campu s: M Performed By: #### L 200.45337 ####[place] [address]Ph# [phone] LYMPH ABS 1.10 K/CU MM Normal 0.9-4.4 [facility] [place] Comment on above: Order Comment: Campu s: M Performed By: #### L 200.94858 ####[place] [address]Ph# [phone] Lymphocytes/100 WBC (Bld) 13.8 % Low 20-40 [facility] Comment on above: Order Comment: Campu s: M Performed By: #### L 200.80436 ####[place] [address]Ph# [phone] MCHC (RBC) [Mass/Vol] 34.8 g/dL Normal 32.0-36.0 [facility] Comment on above: Order Comment: Campu s: M Performed By: #### L 200.76541 ####[facility] [id number] [place], [place] [address]Ph# [phone] MCV (RBC) [Entitic vol] 93.1 fL Normal 80.0-99.0 [facility] [place] Comment on above: Order Comment: Campu s: M Performed By: #### L 200.09189 ####[facility] [id number] [place], [place] [address]Ph# [phone] MONO ABS 0.70 K/CU MM Normal 0.1-1.1 [facility] Comment on above: Order Comment: Campu s: M Performed By: #### L 200.12672 ####[facility] [id number] [place], [place] [address]Jf# [phone] Monocytes/100 WBC (Bld) 8.7 % Normal 2-10 M [facility] Comment on above: Order Comment: Campu s: M Performed By: #### L 200.86235 ####[facility] [id number] [place] [address]Xe# [phone] NEUTROPHIL ABS 5.90 K/CU MM Normal 2.0-8.3 [facility] Comment on above: Order Comment: Campu s: M Performed By: #### L 200.51419 ####[address] [address]Za# [phone] Neutrophils/100 WBC (Bld) 74.7 % Normal 45-75 [facility] Comment on above: Order Comment: Campu s: M Performed By: #### L 200.62843 ####[facility] [id number] [place] [address]Uk# [phone] Nucleated RBC/100 WBC (Bld) [Ratio] 0.0 % Normal Less than 1 [facility] Comment on above: Order Comment: Campu s: M Performed By: #### L 200.25646 ####[facility] [id number] [place] [address]Xw# [phone] Platelet mean volume (Bld) [Entitic vol] 10.9 fL Normal 9.4-12.4 [facility] Comment on above: Order Comment: Campu s: M Performed By: #### L 200.18751 ####[facility] [id number] [place] [address]Nj# [phone] PLT 67 K/CU MM Low 150-450 [facility] Comment on above: Order Comment: Campu s: M Result Comment: Conf irmed by slide estimate. Performed By: #### L 200.12966 ####[facility] [id number] [place], [place] [address]Fs# [phone] PLT EST MOD DECREASED Normal [facility] Comment on above: Order Comment: Campu s: M Performed By: #### L 200.88051 ####[facility] [id number] [place], [place] [address]Rl# [phone] POIK 1+ Normal [facility] Comment on above: Order Comment: Campu s: M Performed By: #### L 200.34656 ####[facility] [id number] [place] [address]Gx# [phone] POLY 1+ Normal [facility] Comment on above: Order Comment: Campu s: M Performed By: #### L 200.03033 ####[facility] [id number] [place], [place] [address]Cd# [phone] RBC 3.77 M/CU MM Low 3.90-5.30 [facility] Comment on above: Order Comment: Campu s: M Performed By: #### L 200.29774 ####[facility] [id number] [place], [place] [address]Uf# [phone] WBC 8.0 K/CUMM Normal 4.5-11.0 [facility] Comment on above: Order Comment: Campu s: M Performed By: #### L 200.79075 ####[facility] [id number] [place] [address]Fl# [phone] CONS.INTENon 02-20-2021 CONS.INTEN [facility] Patient Name: YARA BETH [address] [facility] Date of : [address] [place] [address] Unit Number: [id number] Consultation-Jack Spooler Tender Patient Status: ADM IN Attending Doctor: Skyler Fregoso DO Service Date: 02/20/21 1651 History of Present Illness Referring Physician Doc [...] she has seen an [place] physician [place] multiple times over the course of the following 2 weeks. She had been on 3 antibiotic courses. She actually underwent a resection of a tonsillar abscess at one point which she states did make some difference. Any rate she ultimately presented to [facility] on 02/18/2021 for IV antibiotics and [...] use. Denies drug use. 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 She resides with her father. She does not have children. Allergies/Home Medications Allergies Coded Allergies: MEPERIDINE (From DEMEROL) (Severe, 02/18/21) Home Medications Budesonide/Formoterol Fum (Symbicort 160/4.5 Mcg INH) 1 PUFF HFA.AER.AD 2 PUFF INH QIDPRN PRN Shortness of Breath, Ref 0 (Reported) Entered as Reported by KRYSTAL SIMS on 02/18/21 1637 Last Action: Reviewed on 02/22/211444 by CHARISSE PABON Levocetirizine Dihydrochloride 5 MG TABLET 5 MG PO QDAY, Ref 0 (Reported) Entered as Reported by KRYSTAL SIMS on 02/18/21 163 Last Action: Reviewed on 02/22/211444 by CHARISSE PABON Pantoprazole* (Protonix 40MG Tab*) 40 MG TABLET.DR 40 MG PO QDAYAC, Ref 0 (Reported) Entered as Reported by KRYSTAL SIMS on 02/18/21 1635 Last Action: Reviewed on 02/22/21 144 by CHARISSE PABON Sitagliptin Phosphate* (Januvia Tab*) 50 MG TABLET 50 MG PO QDAYWM, Ref 0 (Reported) Entered as Reported by KRYSTAL SIMS on 02/18/21 1636 Last Action: Reviewed on 02/22/21 144 by CHARISSE PABON Spironolactone* (Aldactone 100MG Tab*) 100 MG TABLET 100 MG PO QDAYWM, Ref 0 (Reported) Entered as Reported by KRYSTAL SIMS on 02/18/21 1633 Last Action: Reviewed on 02/22/21 144 by CHARISSE PABON Review of Systems ROS: [...] or clubbing. (more content not included)... Normal [facility] Consultation-Intensivis t Normal [facility] GFR ESTon 02-20-2021 IF AMER 42 [facility] Comment on above: Order Comment: Campu s: M Performed By: #### M 050.09315 #### [facility] [address] [place] [address] IF non-AFR AMER 35 [facility] Comment on above: Order Comment: Campu s: M Performed By: #### M 050.31497 #### [facility] [address] [place] [address] GLUCOSE METERon 02-20-2021 Glucose [Mass/Vol] 347 mg/dL High 85-125 [facility] Glucose [Mass/Vol] 167 mg/dL High 85-125 [facility] Glucose [Mass/Vol] 163 mg/dL High 85-125 [facility] Glucose [Mass/Vol] 200 mg/dL High 85-125 [facility] Glucose [Mass/Vol] 269 mg/dL High 85-125 [facility] LACTIC ACIDon 02-20-2021 Lactate [Moles/Vol] 3.53 mmol/L High 0.40-2.00 [facility] Comment on above: Order Comment: Campu s: M Performed By: #### L 550.77477 ####[facility] [id number] [place] [address]Xz# [phone] NONGYNon 02-20-2021 NONGYN ---- Patient: YARA BETH Specimen: [id number] Spec Type: NONGYN Ord. .: Skyler Fregoso DO Status: SOUT Collect Date: 02/20/21 110 Received Date: 02/20/21 1136 Source: Neck, NOS(Right [...] Signed Verified/Reviewed by JENNA HERNANDEZ M.D. 02/21/21 [facility] NAME: YARA BETH Pathology and Laboratory Medicine UNIT#: [id number] LOC: ICU Washer Off: Jenna Hernandez M.D. [facility] [id number] ROOM/BED: [place] [address] [address] : 64 AGE/SEX: 60/F ORD.Skyler Lea DO END OF REPORT Normal [facility] PBNP TESTon 02-20-2021 Natriuretic peptide B (Bld) [Mass/Vol] 111 pg/mL Normal 0-125 [facility] Comment on above: Order Comment: Heidi s: Gianna Result Comment: NT-p roBNP results of less than 300 pg/ml likely rules out acute congestive heart failure with 99% predictive value. NOTE: These cuttoff points are suggested for ACUTE CHF DIAGNOSIS only Less than 50 years Greater than 450 pg/ml 50-75 years Greater than 900 pg/ml Greater than 75 years Greater than 1800 pg/ml NOTE NEW NORMAL RANGE Performed By: #### L 500.49300, L500.70559, L500.46570 #### [facility] [address] [place] [place] [address] PHA.NOTEon 02-20-2021 PHA.NOTE [facility] Patient Name: YARA BETH [address] [place] [address] Date of : [address] [place] [address] Unit Number: [id number] Pharmacy Note Patient Status: ADM IN Attending [...] Verified/Reviewed by 02/20/211957 Janes Colon PharmD Normal [facility] Pharmacy Note Normal [facility] PROCAL Aon 02-20-2021 PROCAL A 0.33 NG/ML Normal 0-0.50 [facility] Comment on above: Order Comment: Heidi s: [...] obtained from the [employer] platform vs the [employer] platform (previous). NOTE NEW NORMAL RANGE DUE TO REAGENT CHANGE Performed By: #### L 550.18967 ####[facility] [id number] [place], [place] [address]Mw# [phone] PROG [facility] 02-20-2021 PROG [facility] Patient Name: YARA BETH [address] [facility] Date of : [address] [place] [address] Unit Number: [id number] Progress Note-Hospitalist Patient Status: ADM IN Attending [...] (Last) Result Date Time Pulse Ox 93 09/01 0821 B/P 116/51 02/20 821 Temp 97.9 02/20 [...] no guarding Diagnostic Data: Lab 24hr (CBC/BMP [facility]) 02/20/21 0755: Whole Bld Glucose [...] I discussed the postbiopsy events with physician assisted living assistant Zaida and Dr. Saleh from ENT. I called and updated Dr. De Jesus from infectious disease as well. We will continue Zosyn and vancomycin while awaiting culture results. Disclaimer This dictation was created using voice recognition software. Phonetic and/or minor grammatical errors may exist. eSign Date and Time Doc Zhang MD Verified/R (more content not included)... [facility] Progress Note-Hospitalist [facility] PROG.ENTon 02-20-2021 PROG.ENT [facility] Patient Name: YARA BETH A [address] Date of : [address] [place] [address] Unit Number: [id number] Progress Note-ENT Patient Status: ADM IN Attending [...] to palpation. Diagnostic Data Lab 24hr (CBC/BMP [facility]) 02/20/21 0755: Whole Bld Glucose [...] PAC Verified/Reviewed by 02/20/21920 Fabien Saleh MD [facility] Progress Note-ENT [facility] PROG.NOTEon 02-20-2021 PROG.NOTE [facility] Patient Name: YARA BETH [address] Date of : [address] [place] [address] Unit Number: [id number] Progress Note-Physician Patient Status: ADM IN Attending [...] No Rash Diagnostic Data: Lab 24hr (CBC/BMP [place]) 02/20/21 [...] De Jesus MD Verified/Reviewed by 02/20/21 0934 [facility] Progress Note-Physician [facility] 02-20-2021 SURG ---- Patient: YARA BETH SPECIMEN: [id number] Collection Date: 02/20/21 Received: 02/20/21 Status: PRISCILA Mccarthy. : Skyler Fregoso DO Ph# Othr. Dr.: Michael Graf MD [facility]. : Ruchi Cerda [facility]. : Darryl Nam Material for Examination: A RIGHT NECK MASS CORE BX PRE-OP DIAGNOSIS: RIGHT NECK MASS POST-OP DIAGNOSIS: NONE GIVEN SURGICAL PROCEDURE: RIGHT NECK MASS CORE BIOPSY DIAGNOSIS A. Right neck mass, core biopsy: - Fragments of skeletal muscle and acute inflammatory cells/abscess material. - No evidence of malignancy in the sections examined. COMMENT A construction representative sample was submitted to microbiology lab [...] Phonetic and/or minor grammatical errors may exist. [facility] NAME: YARA BETH Pathology and Laboratory Medicine UNIT#: [id number] LOC: [address] Riley StreetWasher Off: Jenna Hernandez M.D. ROOM/BED: [place] [address] Edgar Online : 64 AGE/SEX: 60/F ORD.Skyler Lea DO END OF REPORT Normal [facility] VANC TROUGHon 02-20-2021 VANC TROUGH 11.4 MCG/ML Low 15.0-20.0 [facility] Comment on above: Order Comment: Campu s: M Performed By: #### L 200.47771 #### [facility] [address] [place] [address] BMPon 02-19-2021 Anion gap [Moles/Vol] 5 mmol/L Normal 5-16 [facility] Comment on above: Order Comment: Campu s: M Performed By: #### L 500.38773, L500.00840 ####[facility] ODWPEVDFTY5649 [place], [place] [address]Qq# [phone] Calcium [Mass/Vol] 8.4 mg/dL Low 8.5-10.5 [facility] Comment on above: Order Comment: Campu s: M Result Comment: NOTE NEW NORMAL RANGE DUE TO REAGENT CHANGE Performed By: #### L 500.03619, L500.40927 ####[facility] [id number] [place], [place] [address]Tc# [phone] Chloride [Moles/Vol] 105 mmol/L Normal 98-107 [facility] Comment on above: Order Comment: Campu s: M Performed By: #### L 500.93318, L500.18723 ####[facility] HZMUSCQKKQ6318 [place], [place] [address]Tu# [phone] CO2 [Moles/Vol] 27.0 mmol/L Normal 21-32 [facility] Comment on above: Order Comment: Campu s: M Performed By: #### L 500.62178, L500.49703 ####[facility] QIXRFYIPJA4080 [place], [place] [address]Bi# [phone] Creatinine [Mass/Vol] 1.34 mg/dL High 0.510-0.950 [facility] Comment on above: Order Comment: Campu s: M Result Comment: Cori ents receiving either N-Acetylcysteine (NAC) or Metamizole prior to venipuncture, may have falsely depressed results. Performed By: #### L 500.73461, L500.07509 ####[facility] ACIBHEDCJX0243 [place], [place] [address]Wu# [phone] Glucose [Mass/Vol] 210 mg/dL High 70-100 [facility] Comment on above: Order Comment: Campu s: M Result Comment: 70-1 00- Normal Fasting; 100-125 Impaired Fasting; greater than 126 on more than one result- Diabetes. ADA guidelines. Results may be falsely elevated after the administration of Sulfapyridine. Results may be falsely depressed after the administration of Sulfasalazine. Performed By: #### L 500.48563, L500.15126 ####[facility] NXCQNMEZCQ8223 [place], [place] [address]Nm# [phone] Potassium [Moles/Vol] 4.3 mmol/L Normal 3.5-5.1 [facility] Comment on above: Order Comment: Campu s: M Result Comment: Slig ht Hemolysis, Result may be affected. Performed By: #### L 500.32713, L500.42507 ####[facility] RCYCWBBISW5093 [place], [place] [address]Wy# [phone] Sodium [Moles/Vol] 137 mmol/L Normal 136-145 [facility] Comment on above: Order Comment: Campu s: M Performed By: #### L 500.55143, L500.72816 ####[facility] TGDUZHIEWX3659 [place], [place] [address]Us# [phone] Urea nitrogen [Mass/Vol] 19 mg/dL Normal 7-26 [facility] Comment on above: Order Comment: Campu s: M Performed By: #### L 500.57670, L500.52465 ####[facility] KOEFPXYAGP9099 [place], [place] [address]Qq# [phone] Urea nitrogen/Creatinine [Mass ratio] 14 mg/mg Low 15-24 [facility] Comment on above: Order Comment: Campu s: M Performed By: #### L 500.34384, L500.43237 ####[facility] GINPAZTCBR2395 [place], [place] [address]In# [phone] CBCon 02-19-2021 Erythrocyte distribution width (RBC) [Ratio] 12.8 % Normal 11-14.5 [facility] Comment on above: Order Comment: Campu s: M Performed By: #### L 200.47498 #### [facility] [place] [address] Hematocrit (Bld) [Volume fraction] 36.7 % Normal 35.0-47.0 [facility] Comment on above: Order Comment: Campu s: M Performed By: #### L 200.31771 #### [facility] [address] [place] [address] Hemoglobin (Bld) [Mass/Vol] 12.6 g/dL Normal 11.5-15.5 [facility] Comment on above: Order Comment: Campu s: M Performed By: #### L 200.82215 #### [facility] [address] [place] [address] MCHC (RBC) [Mass/Vol] 34.3 g/dL Normal 32.0-36.0 [facility] Comment on above: Order Comment: Campu s: M Performed By: #### L 200.80247 #### [facility] [address] [place] [place] [address] MCV (RBC) [Entitic vol] 94.3 fL Normal 80.0-99.0 M [facility] Comment on above: Order Comment: Campu s: M Performed By: #### L 200.48977 #### [facility] [address] [place] [address] Nucleated RBC/100 WBC (Bld) [Ratio] 0.0 % Normal Less than 1 [facility] Comment on above: Order Comment: Campu s: M Performed By: #### L 200.00763 #### [facility] [address] [place] [address] Platelet mean volume (Bld) [Entitic vol] 10.4 fL Normal 9.4-12.4 [facility] Comment on above: Order Comment: Campu s: M Performed By: #### L 200.29614 #### [facility] [address] [place] [address] PLT 68 K/CU MM Low 150-450 [facility] Comment on above: Order Comment: Campu s: M Result Comment: Conf irmed by slide estimate. Performed By: #### L 200.36327 #### [facility] [address] [place], [place] [address] RBC 3.89 M/CU MM Low 3.90-5.30 [facility] Comment on above: Order Comment: Campu s: M Performed By: #### L 200.11128 #### [facility] [address] [place], [place] [address] WBC 9.3 K/CUMM Normal 4.5-11.0 [facility] Comment on above: Order Comment: Campu s: M Performed By: #### L 200.56245 #### [facility] [address]# [phone] CONS.ENTon 02-19-2021 CONS.ENT [facility] Patient Name: YARA BETH [address] [facility] Date of : [address] [place], [place] [address] Unit Number: [id number] CONSULTATION-ENT Patient Status: ADM IN Attending Doctor: Skyler Fregoso DO Service Date: 02/19/2159 See Addendum CONSULTATION-ENT Reason for Consult Neck [...] She went to see Dr. Newman at [place] who is an ENT and he obtained [...] Temp 98.0 02/19 735 Pulse 81 02/19 07 Resp 18 02/19 735 VSS. Afebrile. Physical [...] swelling seen. Diagnostic Data Lab 24hr (CBC/BMP [facility]) 02/19/21 0825: Whole Bld Glucose [...] 0.10, Baso (more content not included)... Normal [facility] [place] CONSULTATION-ENT Normal [facility] [place] GFR ESTon 02-19-20[address] [facility] Comment on above: Order Comment: Heidi s: M Performed By: #### L 500.20385, L500.47738 ####[facility] [id number] [place], [place] [address]Jo# [phone] IF non-AFR AMER [address] [facility] Comment on above: Order Comment: Heidi s: M Performed By: #### L 500.18314, L500.28415 ####[facility] CTYNHUXSCJ9812 [place], [place] [address]El# [phone] GLUCOSE METERon 02-19-2021 Glucose [Mass/Vol] 192 mg/dL High 85-125 [facility] Glucose [Mass/Vol] 306 mg/dL High 85-125 [facility] Glucose [Mass/Vol] 219 mg/dL High 85-125 [facility] Glucose [Mass/Vol] 287 mg/dL High 85-125 [facility] HP.IMS.[facility]on 02-19-2021 HP.IMS.CON [facility] Patient Name: YARA BETH [address] [facility] [address] Date of : [address] [place] [address] Unit Number: [id number] CONSULTATION-HandP Patient Status: ADM IN Attending Doctor: [...] been following with ENT Dr. Newman in [place], has gotten 2 courses of po abx [...] 81 02/19 735 Resp 18 02/19 735 Appearance - PE [...] Additional Laboratory Tests 02/19 02/19 02/18 02/18 0808 [id number] Chemistry Sodium (136 - 145 MMOL/L) 137 [...] 75 %) (more content not included)... Normal [facility] 02-19-2021 [facility] Patient Name: YARA BETH [address] [employer] [address] Date of : [address] [place] [address] Unit Number: [id number] Progress Note-Hospitalist Patient Status: ADM IN Attending [...] decent perfusion. Diagnostic Data: Lab 24hr (CBC/BMP [place]) 02/19/21 1149: Whole Bld Glucose 306 H [...] Alvarado MD Verified/Reviewed by 02/19/[address] [facility] Progress Note-Hospitalist Normal [facility] PTon 02-19-2021 INR Coag (PPP) [Relative time] 1.19 {INR} High 0.9-1.1 [facility] Comment on above: Order Comment: Heidi carpenter: Gianna Result Comment: Olayinka mmended PT INR therapeutic range for longterm and prophylactic therapy is 2.0 - 3.0. For heart valve and shunt patients the range is 2.5 - 3.5. Performed By: #### L 200.12361 #### [facility] [address] [place] [address] PTS 12.6 SECONDS High 9.5-12.0 [facility] Comment on above: Order Comment: Heidi Katz Performed By: #### L 200.13048 #### [facility] [address] [place] [address] PTTon 02-19-2021 aPTT Coag (Bld) [Time] 26.5 s Normal 22.0-31.5 [facility] Comment on above: Order Comment: Heidi Katz Result Comment: Ther apeutic Heparin Reference Range: [...] using the PTT. Performed By: #### L 200.03059 #### [facility] [address] [place] [address] BIOPSY TRANSCATHETER X/R MEJIA Curry 02-18-2021 BIOPSY [...] File ---- Signed By: Michael Graf MD [email or web address] Dictated: 02/20/2021 1:57 PM Signed: 02/20/2021 2:09 PM Reported By: MICHAEL GRAF M.D. Signed By: MICHAEL GRAF M.D. [facility] 02-18-2021 Anion gap [Moles/Vol] 7 mmol/L Normal 5-16 [facility] Comment on above: Order Comment: Heidi s: M Performed By: #### L 500.92716, L500.74371, L500.36334 #### [facility] [place] [address] Calcium [Mass/Vol] 8.7 mg/dL Normal 8.5-10.5 [facility] Comment on above: Order Comment: Campu s: M Result Comment: NOTE NEW NORMAL RANGE DUE TO REAGENT CHANGE Performed By: #### L 500.96608, L500.23440, L500.23598 #### [facility] [address] [place], [place] [address] Chloride [Moles/Vol] 102 mmol/L Normal 98-107 [facility] Comment on above: Order Comment: Campu s: M Performed By: #### L 500.73923, L500.80863, L500.53880 #### [facility] [address] [place] [address] CO2 [Moles/Vol] 27.0 mmol/L Normal 21-32 [facility] Comment on above: Order Comment: Campu s: M Performed By: #### L 500.71905, L500.25295, L500.31748 #### [facility] [address] [place] [address] Creatinine [Mass/Vol] 1.37 mg/dL High 0.510-0.950 [facility] Comment on above: Order Comment: Campu s: M Result Comment: Cori ents receiving either N-Acetylcysteine (NAC) or Metamizole prior to venipuncture, may have falsely depressed results. Performed By: #### L 500.83261, L500.77043, L500.89285 #### [facility] [address] [place] [address] Glucose [Mass/Vol] 262 mg/dL High 70-100 [facility] Comment on above: Order Comment: Campu s: M Result Comment: 70-1 00- Normal Fasting; 100-125 Impaired Fasting; greater than 126 on more than one result- Diabetes. ADA guidelines. Results may be falsely elevated after the administration of Sulfapyridine. Results may be falsely depressed after the administration of Sulfasalazine. Performed By: #### L 500.53219, L500.99800, L500.70277 #### [facility] [address] [place] [address] Potassium [Moles/Vol] 4.5 mmol/L Normal 3.5-5.1 [facility] Comment on above: Order Comment: Campu s: M Result Comment: Slig ht Hemolysis, Result may be affected. Performed By: #### L 500.64858, L500.03453, L500.31472 #### [facility] [address] [place] [address] Sodium [Moles/Vol] 136 mmol/L Normal 136-145 [facility] Comment on above: Order Comment: Campu s: M Performed By: #### L 500.99045, L500.66574, L500.66236 #### [facility] [address] [place] [address] Urea nitrogen [Mass/Vol] 21 mg/dL Normal 7-26 [facility] Comment on above: Order Comment: Campu s: M Performed By: #### L 500.13590, L500.24542, L500.69804 #### [facility] [address] [place], [place] [address] Urea nitrogen/Creatinine [Mass ratio] 15 mg/mg Normal 15-24 [facility] Comment on above: Order Comment: Campu s: M Performed By: #### L 500.37196, L500.67100, L500.31936 #### [facility] [address] [place], [place] [address] CBC W/DIFFon 02-18-2021 BASO ABS 0.00 K/CU MM Normal 0-0.2 [facility] Comment on above: Order Comment: Campu s: M Performed By: #### L 550.98995 #### [facility] [address] [place] [address] Basophils/100 WBC (Bld) 0.3 % Normal 0-2 M [facility] Comment on above: Order Comment: Campu s: M Performed By: #### L 550.01013 #### [facility] [address] [place] [address] EOS ABS 0.10 K/CU MM Normal 0-0.5 [facility] Comment on above: Order Comment: Campu s: M Performed By: #### L 550.72495 #### [facility] [address] [place] [address] Eosinophils/100 WBC (Bld) 0.7 % Normal 0-5 [facility] Comment on above: Order Comment: Campu s: M Performed By: #### L 550.76015 #### [facility] [address] [place] [place] [address] Erythrocyte distribution width (RBC) [Ratio] 12.7 % Normal 11-14.5 [facility] Comment on above: Order Comment: Campu s: M Performed By: #### L 550.32968 #### [facility] [address] [place] [place] [address] Hematocrit (Bld) [Volume fraction] 42.9 % Normal 35.0-47.0 [facility] Comment on above: Order Comment: Campu s: M Performed By: #### L 550.29189 #### [facility] [address] [place] [address] Hemoglobin (Bld) [Mass/Vol] 14.6 g/dL Normal 11.5-15.5 [facility] Comment on above: Order Comment: Campu s: M Performed By: #### L 550.59360 #### [facility] [address] [place] [address] IMMATR GRAN ABS 0.10 K/CU MM Normal Less than 2 [facility] Comment on above: Order Comment: Campu s: M Performed By: #### L 550.79869 #### [facility] [address] [place] [address] IMMATURE GRAN % 0.8 % Normal Less than 2 [facility] Comment on above: Order Comment: Campu s: M Performed By: #### L 550.39444 #### [facility] [address] [place] [address] LYMPH ABS 1.20 K/CU MM Normal 0.9-4.4 [facility] Comment on above: Order Comment: Campu s: M Performed By: #### L 550.19115 #### [facility] [address] [place] [address] Lymphocytes/100 WBC (Bld) 10.2 % Low 20-40 [facility] Comment on above: Order Comment: Campu s: M Performed By: #### L 550.58450 #### [facility] [address] [place] [address] MCHC (RBC) [Mass/Vol] 34.0 g/dL Normal 32.0-36.0 [facility] Comment on above: Order Comment: Campu s: M Performed By: #### L 550.60442 #### [facility] [address] [place] [address] MCV (RBC) [Entitic vol] 95.1 fL Normal 80.0-99.0 [facility] Comment on above: Order Comment: Campu s: M Performed By: #### L 550.07384 #### [facility] [address] [place] [address] MONO ABS 0.90 K/CU MM Normal 0.1-1.1 [facility] Comment on above: Order Comment: Campu s: M Performed By: #### L 550.67452 #### [facility] [place] [address] Monocytes/100 WBC (Bld) 7.8 % Normal 2-10 M [facility] Comment on above: Order Comment: Campu s: M Performed By: #### L 550.56396 #### [facility] [address] [place] [address] NEUTROPHIL ABS 9.10 K/CU MM High 2.0-8.3 [facility] Comment on above: Order Comment: Campu s: M Performed By: #### L 550.56637 #### [facility] [address] [place] [place] [address] Neutrophils/100 WBC (Bld) 80.2 % High 45-75 [facility] Comment on above: Order Comment: Campu s: M Performed By: #### L 550.70463 #### [facility] [address] [place] [place] [address] Nucleated RBC/100 WBC (Bld) [Ratio] 0.0 % Normal Less than 1 [facility] Comment on above: Order Comment: Campu s: M Performed By: #### L 550.43896 #### [facility] [address] [place] [address] Platelet mean volume (Bld) [Entitic vol] 10.6 fL Normal 9.4-12.4 [facility] Comment on above: Order Comment: Campu s: M Performed By: #### L 550.33149 #### [facility] [address] [place] [address] PLT 91 K/CU MM Low 150-450 [facility] Comment on above: Order Comment: Campu s: M Result Comment: Conf irmed by slide estimate. Performed By: #### L 550.51331 #### [facility] [address] [place] [place] [address] PLT EST MOD DECREASED Normal [facility] Comment on above: Order Comment: Campu s: M Performed By: #### L 550.04037 #### [facility] [address] [place] [address] POIK 1+ Normal [facility] Comment on above: Order Comment: Campu s: M Performed By: #### L 550.47150 #### [facility] [address] [place] [address] RBC 4.51 M/CU MM Normal 3.90-5.30 [facility] Comment on above: Order Comment: Campu s: M Performed By: #### L 550.43140 #### [facility] [address] [place] [address] WBC 11.4 K/CUMM High 4.5-11.0 [facility] Comment on above: Order Comment: Campu s: M Performed By: #### L 550.31588 #### [facility] [address] [place] [address] Hung 02-18-2021 EMERGENCY PHYSICIAN REPORT This is a preliminary report only, as the practitioner review and authentication has not occurred. [facility] ER PHYSICIAN ASSESSMENT RECORDS : FlexChartData Event Time: 02/17/2021 21:35 Status: Signed [facility] Yara Beth [[id number] ] Attending Physician 60 / F / 1960 Chart (V2b) Chart created at 02/17/2021 21:27 by Kem Watson Chart closed at 02/17/2021 21:50 Entry in Emergency Department at 02/17/2021 15:53 Patient Name: Yara Beth Record Number: [id number] Date: 02/17/2021 21:27 Entered Department at: 02/17/2021 [...] BMP, information as of 02/17/2021, 4:36 pm [facility] PATIENT NAME: YARA BETH [facility] [address] [place] MEDICAL REC #: [id number] [place] [address] EMERGENCY DEPARTMENT REPORT EMERGENCY DEPARTMENT PHYSICIAN 135* --------+--------+------ --andlt; 240* Anion Gap = 5 4.3 BUN/CREA: 17; CALCIUM TOTAL: 9.1 Mg/Dl LACTATE BLOOD, information as of 02/17/2021, 7:15 pm LACTATE BLOOD: 1.68 Mmol/L [id number], information as of 02/17/2021, 7:16 pm [id number]: Neg Imaging Study Obtained: CT NECK SOFT [...] need second opinion by ENT here at [facility]. I did speak with Dr. Saleh [...] mass, hematoma versus abscess Disposition: Admitted . [facility] PATIENT NAME: YARA BETH [address] [facility] [address] [place] MEDICAL REC #: [id number] [place] [address] EMERGENCY DEPARTMENT REPORT EMERGENCY DEPARTMENT PHYSICIAN MSE completed. I was the primary ED attending.. I confirm that I have evaluated the patient, reviewed the mid-level providers documentation, and discussed the evaluation, plan of care and disposition of the patient with the mid-level provider.. : FlexChartData Event Time: 02/17/2021 21:35 YUDELKA Status: Signed [facility] Yara Beth [[id number] ] Mid-Level Chart (V2b) 60 / F / 1960 Chart created at 02/17/2021 21:28 by Michael Rodriguez Chart closed at 02/17/2021 21:30 Entry in Emergency Department at 02/17/2021 15:53 Patient Name: Yara Beth Record Number: [id number] Date: 02/17/2021 21:28 Entered Department at: 02/17/2021 [...] states she was seen multiple times at [place] [facility] with CAT scans. She states she was told there was something wrong with her parotid gland and that she needed to follow-up with ENT. She states when she followed up with ENT she states the doctor just looked at her history of her head and stated he had never seen a thing like this before. I asked the [facility] (more content not included)... Normal [facility] GFR ESTon 02-18-2021 IF AMER 48 [facility] Comment on above: Order Comment: Campu s: M Performed By: #### L 500.10154, L500.13861, L500.50823 #### [facility] [address]# [phone] IF non-AFR AMER 40 [facility] Comment on above: Order Comment: Campu s: M Performed By: #### L 500.33939, L500.64739, L500.91741 #### [facility] [address] [place] [address] # [phone] GLUCOSE METERon 02-18-2021 Glucose [Mass/Vol] 307 mg/dL High 85-125 [facility] HP.IMS.ADMon 02-18-2021 Admission-H&P Normal [facility] HP.IMS.ADM [facility] Patient Name: YARA BETH [address] [facility] [address] Date of : [address] [place], [place] [address] Unit Number: [id number] Admission-HandP Patient Status: ADM IN Attending Doctor: [...] steatosis, and thrombocytopenia who initially presented to [facility] yesterday with complaints of worsening right neck mass, at that time it was felt that she could follow-up with ENT as an outpatient very closely, she did see ENT in [place] today and additionally had an appointment scheduled tomorrow with Dr. Fabien Saleh for a second opinion and at that appointment today ENT could not drain the mass and recommended inpatient admission with IV antibiotics. She has been direct admitted to [facility] and states the mass is even bigger today and that she does have some difficulty swallowing large pills and is having some shortness of breath. This issue began February 02, she had an enlarged tonsil and she states that Dr. 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 [place] Advance Directives Advance Directives Full Code Allergies/Home [...] on 02/18/21 1633 Last Action: Continued on 02/18/21 1651 by SKYLER FREGOSO Inpatient Medications Medications Current Sig/Dnaiel Start time Last Medication Dose Route Stop Time Status Admin Acetaminophen 650 MG Q4HPRN PRN 02/18 1200 AC (TYLENOL TAB) PO Al Hydrox/Mg Hydrox/ 30 ML Q6HPRN PRN 02/18 1200 AC Simethicone PO (MAALOX (ALAMAG)PLUS ORAL LIQ) Albuterol Sulfate 2.5 MG BID@1200,1600 02/19 1200 AC (VENTOLIN/PROVENTIL INH 2.5MG/3ML INH.NEB) Albuterol Sulfate 2.5 MG BID@0800,02/18 AC (VENTOLIN/PROVENTIL INH 2.5MG/0.5ML INH.NEB) Benzocaine/Menthol 1 HERON Q2HPRN PRN 02/18 1200 AC (CEPACOL LOZENGE) MM Bisacodyl 10 MG QDAYPRN PRN 02/18 1200 AC (DULCOLAX RECT) RC Budesonide 0.5 MG BID@0800,02/18 AC (PULMOCORT 0.5MG/2ML INH INH.NEB) Guaifenesin/ 10 ML Q4HPRN PRN 02/18 1200 AC (more content not included)... [facility] 02-18-2021 OPERATIVE REPORT [facility] OR DATE OF SERVICE: 02/22/2021 PREOPERATIVE DIAGNOSIS: Right neck mass. POSTOPERATIVE DIAGNOSIS: [...] in fact, dealing with perhaps a lymphoma. [facility] PATIENT [facility]: [facility] #: [id number] [place] [address] ADMIT DATE: 02/18/21 DISCHARGE DATE: 02/27/21 OPERATIVE [...] cavity. This was entered sharply and an [facility] PATIENT NAME: [facility]ETH [facility] MEDICAL REC #: [id number] [place] [address] ADMIT DATE: 02/18/21 DISCHARGE DATE: 02/27/21 OPERATIVE [...] unremarkable fashion, taken to the post-anesthesia care [facility] PATIENT NAME: YARA BETH [facility] Dr. [facility] MEDICAL REC #: [id number] [place] [address] ADMIT DATE: 02/18/21 DISCHARGE DATE: 02/27/21 OPERATIVE REPORT ATTENDING PHY: Melanie Hooker MD unit. Prashant Hernandez MD /[id number] SSI File#: [id number] END OF DOCUMENT / CHANGE LOG FOLLOWS Last Edited By Elec. Signed By Prashant Hernandez MD #Prashant Barron MD #YUDELKA on 03/15/2021 10:03 ET on 03/15/2021 10:03 ET Revision Number - 2 Verified/Reviewed by 03/15/21 1003 YUDELKA [facility] PATIENT NAME: YARA BETH [facility] Dr. Cohn (more content not included)... Normal [facility] PHA.NOTEon 02-18-2021 PHA.NOTE [facility] Patient Name: YARA BETH [employer] [address] Date of : [address] [place] [address] Unit Number: [id number] Pharmacy Note Patient Status: ADM IN Attending [...] Andrey Merlos - Pharmac Verified/Reviewed by 02/18/211953 [facility] Pharmacy Note [facility] PROG [facility] 02-18-2021 PROG [facility] Patient Name: YARA BETH [address] [employer] [address] Date of : [address] [place] [address] Unit Number: [id number] Progress Note-Hospitalist Patient Status: DEP ER Attending [...] and Time Skyler Fregoso DO Verified/Reviewed by 02/18/214 [facility] Progress Note-Hospitalist [facility] US GUIDANCE FOR NEEDLE BXon [...] File ---- Signed By: Michael Graf MD [email or web address] Dictated: 02/20/2021 1:57 PM Signed: 02/20/2021 2:09 PM Reported By: MICHAEL GRAF M.D. Signed By: MICHAEL GRAF M.D. Normal [facility] 02-17-2021 Anion gap [Moles/Vol] 5 mmol/L Normal 5-16 [facility] Comment on above: Order Comment: Campu s: M Performed By: #### M 050.07109 #### [facility] [address] [place] [address] Calcium [Mass/Vol] 9.1 mg/dL Normal 8.5-10.5 [facility] Comment on above: Order Comment: Campu s: M Result Comment: NOTE NEW NORMAL RANGE DUE TO REAGENT CHANGE Performed By: #### M 050.14109 #### [facility] [address] [place] [address] Chloride [Moles/Vol] 105 mmol/L Normal 98-107 [facility] Comment on above: Order Comment: Kevinu s: M Performed By: #### M 050.80774 #### [facility] [address] [place] [address] CO2 [Moles/Vol] 25.0 mmol/L Normal 21-32 [facility] Comment on above: Order Comment: Campu s: M Performed By: #### M 050.93972 #### [facility] [address] [place] [address] Creatinine [Mass/Vol] 1.26 mg/dL High 0.510-0.950 [facility] Comment on above: Order Comment: Kevinu s: M Result Comment: Cori ents receiving either N-Acetylcysteine (NAC) or Metamizole prior to venipuncture, may have falsely depressed results. Performed By: #### M 050.30224 #### [facility] [place] [address] Glucose [Mass/Vol] 240 mg/dL High 70-100 [facility] Comment on above: Order Comment: Kevinu s: M Result Comment: 70-1 00- Normal Fasting; 100-125 Impaired Fasting; greater than 126 on more than one result- Diabetes. ADA guidelines. Results may be falsely elevated after the administration of Sulfapyridine. Results may be falsely depressed after the administration of Sulfasalazine. Performed By: #### M 050.94673 #### [facility] [place] [address] Potassium [Moles/Vol] 4.3 mmol/L Normal 3.5-5.1 [facility] Comment on above: Order Comment: Kevinu s: M Result Comment: Slig ht Hemolysis, Result may be affected. Performed By: #### M 050.71646 #### [facility] [address] [place] [address] Sodium [Moles/Vol] 135 mmol/L Low 136-145 [facility] Comment on above: Order Comment: Campu s: M Performed By: #### M 050.92965 #### [facility] [address] [place] [address] Urea nitrogen [Mass/Vol] 22 mg/dL Normal 7-26 [facility] Comment on above: Order Comment: Campu s: M Performed By: #### M 050.19960 #### [facility] [address] [place] [address] Urea nitrogen/Creatinine [Mass ratio] 17 mg/mg Normal 15-24 [facility] Comment on above: Order Comment: Campu s: M Performed By: #### M 050.70158 #### [facility] [place] [address] CBC W/DIFFon 02-17-2021 BASO ABS 0.00 K/CU MM Normal 0-0.2 [facility] Comment on above: Order Comment: Campu s: M Performed By: #### L 200.86043 ####[facility] [id number] [place] [address]Mw# [phone] Basophils/100 WBC (Bld) 0.3 % Normal 0-2 M [facility] Comment on above: Order Comment: Campu s: M Performed By: #### L 200.69612 ####[facility] [id number] [place], [place] [address]Fd# [phone] EOS ABS 0.10 K/CU MM Normal 0-0.5 [facility] Comment on above: Order Comment: Campu s: M Performed By: #### L 200.77080 ####[facility] [id number] [place], [place] [address]Lo# [phone] Eosinophils/100 WBC (Bld) 0.4 % Normal 0-5 [facility] Comment on above: Order Comment: Campu s: M Performed By: #### L 200.46873 ####[facility] [id number] [place], [place] [address]Gj# [phone] Erythrocyte distribution width (RBC) [Ratio] 12.4 % Normal 11-14.5 [facility] [place] Comment on above: Order Comment: Campu s: M Performed By: #### L 200.23230 ####[facility] [id number] [place], [place] [address]Ph# [phone] Hematocrit (Bld) [Volume fraction] 46.7 % Normal 35.0-47.0 [facility] [place] Comment on above: Order Comment: Campu s: M Performed By: #### L 200.66347 ####[address] [address]Me# [phone] Hemoglobin (Bld) [Mass/Vol] 16.1 g/dL High 11.5-15.5 [facility] [place] Comment on above: Order Comment: Campu s: M Performed By: #### L 200.54539 ####[facility] [id number] [place], [place] [address]Ph# [phone] IMMATR GRAN ABS 0.10 K/CU MM Normal Less than 2 [facility] [place] Comment on above: Order Comment: Campu s: M Performed By: #### L 200.02219 ####[facility] [id number] [place], [place] [address]Ph# [phone] IMMATURE GRAN % 0.8 % Normal Less than 2 [facility] [place] Comment on above: Order Comment: Campu s: M Performed By: #### L 200.11207 ####[facility] [id number] [place] [address]Wx# [phone] LYMPH ABS 1.10 K/CU MM Normal 0.9-4.4 [facility] [place] Comment on above: Order Comment: Campu s: M Performed By: #### L 200.33196 ####[facility] [id number] [place], [place] [address]Ph# [phone] Lymphocytes/100 WBC (Bld) 9.1 % Low 20-40 [facility] Comment on above: Order Comment: Campu s: M Performed By: #### L 200.20085 ####[facility] [id number] [place] [address]Cu# [phone] MCHC (RBC) [Mass/Vol] 34.5 g/dL Normal 32.0-36.0 [facility] Comment on above: Order Comment: Campu s: M Performed By: #### L 200.11306 ####[address] [address]Aq# [phone] MCV (RBC) [Entitic vol] 94.0 fL Normal 80.0-99.0 [facility] Comment on above: Order Comment: Campu s: M Performed By: #### L 200.99654 ####[place] [address]Ph# [phone] MONO ABS 0.90 K/CU MM Normal 0.1-1.1 [facility] Comment on above: Order Comment: Campu s: M Performed By: #### L 200.70417 ####[address] [address]Ru# [phone] Monocytes/100 WBC (Bld) 7.4 % Normal 2-10 M [facility] Comment on above: Order Comment: Campu s: M Performed By: #### L 200.07242 ####[facility] [id number] [place] [address]Gh# [phone] NEUTROPHIL ABS 9.80 K/CU MM High 2.0-8.3 [facility] Comment on above: Order Comment: Campu s: M Performed By: #### L 200.96610 ####[facility] [id number] [place] [address]Xt# [phone] Neutrophils/100 WBC (Bld) 82.0 % High 45-75 [facility] Comment on above: Order Comment: Campu s: M Performed By: #### L 200.86721 ####[facility] [id number] [place], [place] [address]Rc# [phone] Nucleated RBC/100 WBC (Bld) [Ratio] 0.0 % Normal Less than 1 [facility] Comment on above: Order Comment: Campu s: M Performed By: #### L 200.74840 ####[facility] [id number] [place], [place] [address]Qm# [phone] Platelet mean volume (Bld) [Entitic vol] 10.1 fL Normal 9.4-12.4 [facility] Comment on above: Order Comment: Campu s: M Performed By: #### L 200.80736 ####[facility] [id number] [place], [place] [address]By# [phone] PLT 81 K/CU MM Low 150-450 [facility] Comment on above: Order Comment: Campu s: M Result Comment: Conf irmed by slide estimate. Performed By: #### L 200.44214 ####[facility] [id number] [place] [address]Cc# [phone] RBC 4.97 M/CU MM Normal 3.90-5.30 [facility] Comment on above: Order Comment: Campu s: M Performed By: #### L 200.20896 ####[facility] [id number] [place], [place] [address]Xy# [phone] WBC 12.0 K/CUMM High 4.5-11.0 [facility] Comment on above: Order Comment: Campu s: M Performed By: #### L 200.30626 ####[facility] [id number] [place] [address]Db# [phone] CT NECK SOFT TISSUE WITH CON on [...] was performed concurrently and is dictated separately. Unit Aide Tech (topogram) images: Non-diagnostic. IMPRESSION: Large 7 cm [...] BRANDT DO Signed By: KATHARINA BRANDT DO [facility] GFR ESTon 02-17-2021 IF AMER 53 [facility] Comment on above: Order Comment: Campu s: M Performed By: #### M 050.52691 #### [facility] [address] [place] [address] IF non-AFR AMER 44 [facility] Comment on above: Order Comment: Campu s: M Performed By: #### M 050.41354 #### [facility] [place] [address] LACTATE BLOODon 02-17-2021 LACTATE BLOOD 1.68 MMOL/L Normal 0.40-2.00 [facility] Comment on above: Order Comment: Campu s: M Performed By: #### L 500.67374, L500.02307, L500.29442 #### [facility] [address] [place] [address] [id number] 02-17-2021 SARS-CoV-2 (COVID-19) RNA CASA+probe Ql (Unsp spec) Negative Invalid Interpretation Code Negative [facility] Comment on above: Order Comment: Kevinu s: M Result Comment: RESU [place] 21002/17/21 BY MARGARITA LOPEZ Negative results do not preclude SARS-CoV-2 infection and should not be used as the sole basis for treatment or other patient management decisions. Negative results must be combined with clinical observation, patient history, and epidemiological information. This test was performed by PCR. 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 Reset acoustics to earmold settings and program 2(restaurant), 3 (crowd),and 4 (auditorium) to Best Fit. Ran feedback canceller. Gave her a wax loop to clean canal portion of earmolds. Normal [facility] ENT Trial Examiner Progress Noteon 01-14-2021 [facility] ENT Trial Examiner Progress Note Patient: YARA BETH Age: 60 years Sex: Female : 1960 Associated Diagnoses: None Author: Sandie Medina Patient is her to discuss options for hearing aids. She currently wears 2 SEAT 4a hearing aids, from 2017 with 50 gain receivers installed and 9mm closed buds. The serial numbers are [id number] ans [id number], and she just purchased an [...] will go ahead with new ones. Normal [facility] AMB ENT Physician Progress N yoly 12-25-2020 AMB ENT Physician Progress Note Chief [...] (12/25/20 10:13:) Diastolic Blood Pressure: 79 mmHg (12/25/20:13:) Mean Arterial Pressure: 93 mmHg (12/25/20:13:) Height/Length Measured: 155 cm (12/25/20 10:13:) Weight Measured: 120 kg (12/25/20 10:13:) Body Mass Index Measured: 49.95 kg/m2 (12/25/20::) Weight Measured - lbs2: 264 lb (12/25/20::) Height/Length Measured - in2: 61 in (12/25/20 10:13:) Body Mass Index Measured English2: 49.88 kg/m2 (12/25/20:13:) BSA: 2.27 m2 (12/25/20 10:13:) Ht/Wt Measurement Refused by Patient?2: No (12/25/20 10:13:) Depression Screening Scores Initial Depression Screen Score: [...] AMB Comp audiometry threshold & speech recog 07063, 12/25/2020 11:32:00 EDT, Perforation of right tympanic membrane / Mixed hearing loss of right ear / Sensorineural hearing loss of left ear, 1 AMB Office/Outpt New Pt Low MDM / 30-44 min 98354, 12/25/2020 11:32:00 EDT, Perforation of right tympanic membrane / Mixed hearing loss of right ear / Sensorineural hearing loss of left ear Sandie Limon, 12/25/2020 11:32:00 EDT, Perforation of right tympanic membrane / Mixed hearing loss of right ear / Sensorineural hearing loss of left ear, 1 2. Mixed hearing loss of right ear H90.71 Ordered: AMB Comp audiometry threshold & speech recog 97126, 12/25/2020 11:32:00 EDT, Perforation of right tympanic membrane / Mixed hearing loss of right ear / Sensorineural hearing loss of left ear, 1 AMB Office/Outpt New Pt Low MDM / 30-44 min 81184, 12/25/2020 11:32:00 EDT, Perforation of right tympanic membrane / Mixed hearing loss of right ear / Sensorineural hearing loss of left ear Sandie Limon, 12/25/2020 11:32:00 EDT, Perforation of right tympanic membrane / Mixed hearing loss of right ear / Sensorineural hearing loss of left ear, 1 3. Sensorineural hearing loss of left ear H90.5 Ordered: AMB Comp audiometry threshold & speech recog 42476, 12/25/2020 11:32:00 EDT, Perforation of right tympanic membrane / Mixed hearing loss of right ear / Sensorineural hearing loss of left ear, 1 AMB Office/Outpt New Pt Low MDM / 30-44 min 59826, 12/25/2020 11:32:00 EDT, Perforation of right tympanic [...] other th (more content not included)... Normal [facility] BONE DENSITY, DEXA 1 OR MORE SITES: AXIAL SKELETNon 08-22-2019 BONE DENSITY, DEXA 1 OR MORE SITES: AXIAL SKELETN Bone Density Report Height: 61.0 in Weight: 257.0 lb Fractures: Treatments: Indication: Asymptomatic menopausal state Referring Provider: ANDREW FLORES Study: Bone densitometry was performed. Exam Date: August 22, 2019 Accession number: [id number] Findings: Standard measurements were obtained utilizing a [...] Z-score Classification AP Spine(L1-L4) 1.125 0.7 1.9 Normal Femoral Neck (Left) 0.688 -1.5 -0.3 Osteopenia Total Hip (Left) 0.886 -0.5 0.3 Normal World Health Organization criteria for BMD impression classify patients as: Normal (T-score at or above -1.0), Osteopenia (T-score between -1.0 and -2.5), or Osteoporosis (T-score at or below -2.5). 10-year Fracture Risk(1): Major Osteoporotic Fracture 5.8% Hip Fracture 0.4% Reported Risk Factors: [place] (), Neck BMD=0.688, [...] available on the Radiology PACS. Reported by: -socar on 08/24/2019 8:35:00 AM. Electronically signed by: VU HAWK MD [facility] Otheron 08-22-2019 Interpreted by: MAGGIE HAWK08/24/19 08:48 Bone Density Report Height: 61.0 inWeight: 257.0 lbFractures:Treatments: Indication: Asymptomatic menopausal state Referring Provider: ANDREW FLORES Study: Bone densitometry was performed. Exam Date: August 22, 2019 Accession number: [id number] Findings: Standard measurements were obtained utilizing a [...] similarly yields a Z score. Bone Density: -Region BMD T-score Z-score Classification -------AP Spine(L1-L4) 1.125 0.7 1.9 NormalFemoral Neck (Left) 0.688 -1.5 -0.3 OsteopeniaTotal Hip (Left) 0.886 -0.5 0.3 Normal World Health Organization criteria for BMD impression classify patients as: Normal (T-score at or above -1.0), Osteopenia (T-score between -1.0 and -2.5), or Osteoporosis (T-score at or below -2.5). 10-year Fracture Risk(1): -Major Osteoporotic Fracture 5.8%Hip Fracture 0.4% Rep orted Risk Factors:[place] (), Neck BMD=0.688, BMI=48.6(1) FRAX(R) [...] signed by: VU HAWK 08/24/19 08:48 Normal [facility] Work Phone: Comment on above: ORDER REVISED TO A B ONE DENSITY, DEXA 1 OR MORE SITES: AXIAL SKELETN BY RADIOLOGIST; Original Order Number: [id number] Mamm - Screening Mammogram w / Tomosynthesison 08-19-2019 MG Breast screening Interpreted by: DEV WYMAN08/19/19 14:42MRN: [id number] Name: YARA BETH STUDY:DIGITAL MAMM SCREENING W/ [...] signed by: DEV WYMAN 08/19/19 14:42 Normal [facility] Work Phone: US ELASTOGRAPHY LIVER W/ABD LTDon [...] PM Sign Date: 01/05/2019 5:15:01 PM Normal [facility] PROGRESSon 09-30-2018 Protein mass conc HNO ID: [id number] Author: Balbir Holbrook Service: ? Author Type: [...] MHz tuning fork) and protective threshold (5.07 [place] monofilament) are intact and without focal [...] 719.47, ICD10: M25.572 Balbir Holbrook DPM Normal [facility] PROGRESSon 09-23-2018 Protein mass conc HNO ID: [id number] Author: Balbir Holbrook Service: ? Author Type: [...] MHz tuning fork) and protective threshold (5.07 [place] monofilament) are intact and without focal [...] ICD10: M25.571, M25.572 Balbir Holbrook DPM Normal [facility] PROGRESSon 08-16-2018 Protein mass conc HNO ID: [id number] Author: Balbir Holbrook Service: (none) Author Type: [...] ICD9: 755.67, ICD10: Q66.89 Balbir Holbrook DPM [facility] PROGRESSon 08-06-2018 Protein mass conc HNO ID: [id number] Author: Balbir Holbrook Service: (none) Author Type: [...] 729.5, ICD10: M79.671 Balbir Holbrook DPM Normal [facility] PROGRESSon 06-30-2018 Protein mass conc HNO ID: [id number] Author: Balbir Holbrook Service: (none) Author Type: [...] 734, ICD10: M76.822 Balbir Holbrook DPM Normal [facility] Vital Signs Date Time Vital Sign Value Performing Clinician Facility 01-06-2025 14:36-0400 Body height 154.[address] Darryl Nam MD Work Phone: [facility] 01-06-2025 14:36-0400 Body mass index (BMI) [Ratio] 47.5 kg/m2 Dr. Darryl Nam MD Work Phone: [facility] 01-06-2025 14:36-0400 Body weight 113.[address] Darryl Nam MD Work Phone: [facility] 01-06-2025 14:36-0400 Diastolic blood pressure 71 mm[Hg] Dr. Darryl Nam MD Work Phone: [facility] 01-06-2025 14:36-0400 Heart rate 87 /min Dr. Darryl Nam MD Work Phone: [facility] 01-06-2025 14:36-0400 Respiratory rate 15 /min Dr. Darryl Nam MD Work Phone: [facility] 01-06-2025 14:36-0400 SaO2% (BldA) [Mass fraction] 95 % Dr. Darryl Nam MD Work Phone: [facility] 01-06-2025 14:36-0400 Systolic blood pressure 122 mm[Hg] Dr. Darryl Nam MD Work Phone: [facility] 10-03-2024 18:07-0400 Body mass index (BMI) [Ratio] 46.75 kg/m2 Diane Lopez LEAF CONDITIONER-PARTNERSHIP MARKETING MANAGER Work Phone: [facility] 10-03-2024 18:07-0400 Body weight 112.22 kg Diane Lopez LEAF CONDITIONER-PARTNERSHIP MARKETING MANAGER Work Phone: [facility] 10-03-2024 18:07-0400 Diastolic blood pressure 70 mm[Hg] Diane Lopez LEAF CONDITIONER-PARTNERSHIP MARKETING MANAGER Work Phone: [facility] 10-03-2024 18:07-0400 Heart rate 96 /min Diane Lopez LEAF CONDITIONER-PARTNERSHIP MARKETING MANAGER Work Phone: [facility] 10-03-2024 18:07-0400 SaO2% (BldA) [Mass fraction] 100 % Diane Lopez LEAF CONDITIONER-PARTNERSHIP MARKETING MANAGER Work Phone: [facility] 10-03-2024 18:07-0400 Systolic blood pressure 132 mm[Hg] Diane Lopez LEAF CONDITIONER-PARTNERSHIP MARKETING MANAGER Work Phone: [facility] 03-10-2024 11:34-0400 Body height 154.94 cm Preet hC PA-C [facility] 03-10-2024 11:34-0400 Body mass index (BMI) [Ratio] 44.96 kg/m2 Preet Ch PA-C [facility] 03-10-2024 11:34-0400 Body weight 107.96 kg Preet Ch PA-C [facility] 09-29-2023 10:36-0400 Body height 154.94 cm Yobani Juarez DO [facility] 09-29-2023 10:36-0400 Body mass index (BMI) [Ratio] 44.96 kg/m2 Yobani Juarez DO [facility] o 09-29-2023 10:36-0400 Body weight 107.96 kg Yobani Juarez DO [facility] 03-20-2022 11:19-0400 Diastolic blood pressure 67 mm[Hg] Darryl Nam Work Phone: AW-Vheakqmtlgjx-Ctxcl in [address] Work Phone: 03-20-2022 11:19-0400 Heart rate 87 /min Darryl Nam Work Phone: GE-Jdtkcdwkucyu-Pnqoh in [address] Work Phone: 03-20-2022 11:19-0400 Systolic blood pressure 102 mm[Hg] Darryl Nam Work Phone: ZW-Ngphutvxckrd-Mklix in [address] Work Phone: 03-20-2022 11:17-0400 Body temperature 97.3 [degF] Darryl Nam Work Phone: NV-Jcmatqloqwmh-Rqdsl in [address] Work Phone: 03-20-2022 11:10-0400 Body height 154.94 cm Darryl Nam Work Phone: TI-Gfryrqysdtum-Qtnii in [address] Work Phone: 03-20-2022 11:10-0400 Body mass index (BMI) [Ratio] 47.43 kg/m2 Darryl Nam Work Phone: WI-Kdkhqhnpaeom-Cfbhh in [address] Work Phone: 03-20-2022 11:10-0400 Body surface area Derived from formula 2.08 m2 Darryl Nam Work Phone: QQ-Rxoggvykjrwu-Gezaf in [address] Work Phone: 03-20-2022 11:10-0400 Body weight 113.85 kg Darryl Nam Work Phone: EL-Vbelhxgdcgvk-Yihax in [address] Work Phone: 01-09-2022 10:23-0400 Body height 154.94 cm Darryl Khalil Nam Work Phone: MU-Znzhdagrvmmv-Bmejf in [address] Work Phone: 01-09-2022 10:23-0400 Body mass index (BMI) [Ratio] 47.05 kg/m2 Darryl Nam Work Phone: QD-Onkovjlmxhma-Liypr in [address] Work Phone: 01-09-2022 10:23-0400 Body surface area Derived from formula 2.07 m2 Darryl Nam Work Phone: US-Dfzdikdarwwh-Gskys in [address] Work Phone: 01-09-2022 10:23-0400 Body temperature 97.2 [degF] Darryl Nam Work Phone: CI-Kkgznhktrwtd-Lcknm in [address] Work Phone: 01-09-2022 10:23-0400 Body weight 112.95 kg Darryl Khalil Nam Work Phone: II-Lbjebdycjpbq-Wdloa in [address] Work Phone: 01-09-2022 10:23-0400 Diastolic blood pressure 69 mm[Hg] Darryl Nam Work Phone: EU-Plxpqzrggozw-Mxkxz in [address] Work Phone: 01-09-2022 10:23-0400 Heart rate 91 /min Darryl Nam Work Phone: ZZ-Guqpwqpkrbdg-Iuglt in [address] Work Phone: 01-09-2022 10:23-0400 Respiratory rate 18 /min Darryl Nam Work Phone: HS-Ndlcopufsvto-Dizdj in [address] Work Phone: 01-09-2022 10:23-0400 Systolic blood pressure 102 mm[Hg] Darrylpia Nam Work Phone: SV-Pepayunpirfi-Uugas in [facility] [address] [facility] Work Phone: 01-09-2022 10:23-0400 0 1 Darrylpia Nam Work Phone: OC-Zdbghrvorfqc-Uqkfw in [place] [id number] [facility] Work Phone: Comment on above: [employer] 09-23-2021 10:45-0400 Body height 154.94 cm Darrylpia Nam Work Phone: [facility] Work Phone: 09-23-2021 10:45-0400 Body mass index (BMI) [Ratio] 47.8 kg/m2 Darryl Remi Nam Work Phone: [facility] Work Phone: 09-23-2021 10:45-0400 Body surface area Derived from formula 2.09 m2 Darryl Nam Work Phone: [facility] Work Phone: 09-23-2021 10:45-0400 Body weight 114.76 kg Darryl Remi [facility] Work Phone: 09-23-2021 10:45-0400 Diastolic blood pressure 80 mm[Hg] Darryl Remi Nam Work Phone: [facility] Work Phone: 09-23-2021 10:45-0400 Systolic blood pressure 130 mm[Hg] Darryl Remi Nam Work Phone: [facility] Work Phone: 09-23-2021 10:45-0400 0 1 Darryl A Nam Work Phone: [facility] Work Phone: Comment on above: GRAV PARA 08-12-2019 15:50-0500 BMI (Body Mass Index) 48.94 kg/m2 Nadeem Lopez [facility] Work Phone: 08-12-2019 15:50-0500 Body weight 117.48 kg Nadeem Lopez [facility] Work Phone: 08-12-2019 15:50-0500 BP Diastolic 62 mm[Hg] Nadeem Lopez -[facility] Work Phone: 08-12-2019 15:50-0500 BP Systolic 120 mm[Hg] Nadeem Lopez -[facility] Work Phone: 08-12-2019 15:50-0500 BSA (Body Surface Area) 2.11 m2 Nadeem Lopez -[facility] Work Phone: 08-12-2019 15:50-0500 Height 154.94 cm Nadeem Lopez -[facility] Work Phone: 08-12-2019 15:50-0500 0 1 Nadeem Lopez [facility] Work Phone: Comment on above: Para Encounters Encounter Date Encounter Type Care Provider Facility Start: 02-09-2025 ambulatory Darryl Nam Facility:[facility] Start: 01-18-2025 End: 01-18-[address] Darryl Nam MD Work Phone: -[facility] Start: 01-18-2025 End: 01-18-2025 Patient encounter procedure Margarita Swenson CANDY WRAPPING MACHINE OPERATOR-C -[facility] Work Phone: Start: 01-18-2025 End: 01-18-2025 ambulatory Darryl Nam Facility:[facility] Start: 01-06-2025 End: 01-06-2025 Patient encounter procedure Margarita CLAUDIO -[facility] Work Phone: Start: 01-06-2025 End: 01-06-[address] Darryl Nam MD Work Phone: -[facility] Start: 01-06-2025 End: 01-06-2025 ambulatory Darryl Nam Facility:[facility] Start: 12-16-2024 End: 12-16-[address] Darryl Nam MD Work Phone: [facility] Start: 12-16-2024 End: 12-16-[address] Darryl Nam MD -[facility] Work Phone: Start: 12-16-2024 End: 12-16-2024 ambulatory Darryl Nam Facility:[facility] Start: 12-12-2024 End: 12-12-[address] Dar[facility] Start: 12-12-2024 End: 12-12-[address] Darryl Nam MD -[facility] Start: 12-12-2024 End: 12-12-2024 ambulatory Darryl Nam Facility:[facility] Start: 10-03-2024 End: 10-03-2024 Office outpatient new 30 minutes Diane Lopez LEAF CONDITIONER-PARTNERSHIP MARKETING MANAGER Work Phone: [facility] Comment on above: Non-recurrent acute serous otitis media of both ears (Primary Dx) Start: 09-16-2024 ambulatory [facility] Start: 09-08-2024 ambulatory Yobani Juarez [facility] Start: 09-06-2024 ambulatory Yobani Juarez [facility] Start: 08-09-2024 ambulatory ITA KING Fac ility:[id number] Start: 08-09-2024 End: 08-09-2024 Subsequent hospital visit by physician [facility] Work Phone: Radiology CT Scan Comment on above: Other microscopic he maturia [R31.29] Start: 07-18-2024 End: 07-18-2024 ambulatory [facility] Facility:[facility] Start: 06-08-2024 End: 06-08-2024 ambulatory [facility] Facility:[facility] Start: 05-13-2024 End: 05-13-2024 ambulatory [facility] Facility:[facility] Start: 04-21-2024 End: 04-21-2024 Encounter identifier Yobani Juarez Work Phone: [facility] Start: 04-21-2024 ambulatory Yobani Juarez [facility] Start: 04-14-2024 End: 04-14-2024 Encounter identifier Yobani Juarez Work Phone: [facility] Start: 04-14-2024 ambulatory Yobain Juarez [facility] Start: 03-14-2024 End: 03-14-2024 ambulatory [facility] Facility:[facility] Start: 03-10-2024 End: 03-10-2024 Office outpatient visit 15 minutes Preet Ch Work Phone: [facility] Start: 02-15-2024 End: 02-15-2024 ambulatory [facility] Facility:[facility] Start: 01-27-2024 End: 01-27-2024 Encounter identifier Yobani Juarez Work Phone: [facility] Start: 12-14-2023 ambulatory [facility] Start: 12-14-2023 End: 12-14-2023 Subsequent hospital visit by physician Xr [facility] Radiology Comment on above: Personal history of urinary calculi [Z87.442] Start: 11-12-2023 End: 11-12-2023 Encounter identifier Yobani Juarez Work Phone: [facility] Start: 11-12-2023 End: 11-12-2023 Office outpatient visit 15 minutes Yobani Juarez Work Phone: [facility] Start: 10-23-2023 End: 10-23-2023 Encounter identifier Yobani Juarez Work Phone: Naomi LOPEZ Start: 10-16-2023 End: 10-16-2023 Office outpatient visit 25 minutes Yobani Juarez Work Phone: GABE Mccain Start: 10-08-2023 End: 10-08-2023 Encounter identifier Yobani Juarez Work Phone: [facility] Start: 09-29-2023 End: 09-29-2023 Office outpatient new 45 minutes Yobani Juarez Work Phone: [facility] Start: 09-07-2023 End: 09-07-2023 ambulatory [facility] Work Phone: Start: 09-07-2023 End: 09-07-2023 Patient encounter procedure [facility] Start: 06-29-2023 End: 06-29-2023 ambulatory [facility] Work Phone: Start: 06-29-2023 End: 06-29-2023 Patient encounter procedure [facility] Start: 06-18-2023 End: 06-18-2023 Emergency department patient visit DARRYL NAM [facility] Start: 03-10-2023 Rx Renewal Darryl Nam Work Phone: GN-Mootqguhsnzvvzpu-Evjvg [facility] Work Phone: Start: 01-19-[address] Mathieu Baca Fa cility:[id number] Start: 12-08-2022 End: 12-08-2022 Subsequent hospital visit by physician [facility] Comment on above: Personal history of urinary calculi [Z87.442] Start: 06-25-2022 End: 06-25-2022 ambulatory [facility] Work Phone: Start: 06-25-2022 End: 06-25-2022 Patient encounter procedure [facility] Start: 04-17-2022 Chart Update Darryl Nam Work Phone: EM-Cuuagfgrrmnxyluk-Odxsf in [facility] Work Phone: Start: 04-11-2022 AUDIT Darryl Nam Work Phone: UE-Rzvwfpolmtdfzvpw-Ndxpi [place] Work Phone: Start: 04-11-2022 End: 04-11-2022 ambulatory MD WENDY OLVERA Facility:[facility] Start: 03-20-2022 ambulatory MD WENDY OLVERA Facility:[id number] Start: 03-20-2022 Current tobacco non-user cad cap copd pv dm Darryl Nam Work Phone: [facility] Work Phone: Start: 01-28-2022 Chart Update Darryl Nam Work Phone: NI-Yqaoqjshrslhnrqm-Lldqd [place] Work Phone: Start: 01-27-2022 ambulatory MD WENDY OLVERA Facility:[id number] Start: 01-20-2022 Chart Update Darryl Nam Work Phone: HG-Udbcbzlbdatkmymo-Zlbki [place] [facility] Work Phone: Start: 01-09-2022 Office consultation new/estab patient 80 min Darryl Nam Work Phone: BY-Cfiliaqxukrvriqo-Dnqch [place] [facility] Work Phone: Start: 01-09-2022 Patient encounter procedure Darryl Nam Work Phone: [facility] [address] [facility] Work Phone: Start: 12-05-2021 End: 12-05-2021 Patient encounter procedure [facility] Start: 11-08-2021 End: 11-08-2021 Patient encounter procedure [facility] Start: 10-25-2021 Chart Update Darryl Nam Work Phone: [facility] Work Phone: Start: 10-01-2021 AUDIT Darryl Nam Work Phone: [facility] Work Phone: Start: 07-23-2021 End: 07-23-2021 Patient encounter procedure [facility]Jason Galvin Start: 08-12-2019 Patient encounter procedure Nadeem Lopez [facility] Work Phone: Start: 07-26-2018 Patient encounter procedure Nadeem Lopez [facility] Work Phone: Encounter for gynecological examination (general) (routine) without abnormal findings Darryl Nam Work Phone: [facility] Work Phone: Patient encounter status Darryl Nam Work Phone: [facility] Work Phone: Procedures Date Procedure Procedure Detail Performing Clinician Start: 01-18-[address] Margaret Nam MD Work Phone: Start: 01-06-2025 Ocusf-5-Hqvykmnaffv measurement Dr. Darryl Nam MD Work Phone: Comment on above: [facility] Electrochemiluminescen ce Immunoassay(ECLIA)Values obtained with different assay methods or kits cannotbe used interchangeably. Results cannot be interpreted asabsolute evidence of the presence or absence of malignantdisease.This test is not interpretable in females. Start: 01-06-[address] Darryl Nam MD Work Phone: Comment on above: Performed at: [address] [id number] Director: Jeronimo Fontenot PhD, Phone: [phone] Start: 01-06-[address] Darryl Nam MD Work Phone: Comment on above: The atypical pANCA pattern has been obse rved in asignificant percentage of patients with ulcerative colitis,primary sclerosing cholangitis and autoimmune hepatitis. Start: 01-06-2025 Antibody to centromere measurement Dr. Sascha Nam MD Work Phone: Comment on above: Test not performed Start: 01-06-2025 Antibody to extractable nuclear antigen measurement Dr. Darryl Nam MD Work Phone: Comment on above: Test not performed Start: 01-06-2025 Antibody to TEODORO-[address] Darryl otero MD Work Phone: Comment on above: Test not performed Start: 01-06-2025 Antibody to lupus La protein measurement Dr. Darryl Nam MD Work Phone: Comment on above: Test not performed Start: 01-06-2025 Antibody to SS-A measurement Dr. Darryl otero MD Work Phone: Comment on above: Test not performed Start: 01-06-[address] Darryl Nam MD Work Phone: Comment on above: Test not performed Start: 01-06-[address] Darryl Nam MD Work Phone: Start: 01-06-2025 Hepatitis A virus antibody, total measurement Dr. Darryl Nam MD Work Phone: Comment on above: Comment: The HAV total antibody assay de tects both IgG andIgM but does not differentiate between them. A negativeresult suggests susceptibility to infection. A positiveresult could be due to vaccination, previously resolvedinfection or active infection. Testing for HAV IgM shouldbe performed if active HAV infection is suspected. [facility]corpoffers profiles that will automatically reflex positive HAVtotal antibody results to IgM (e.g., panel #[id number] HAVAntibody w/ Rfx).Performed at: [address] [id number] Director: Jeronimo Fontenot PhD, Phone: [phone] Start: 01-06-2025 Hepatitis C antibody measurement Dr. Margaret Nam MD Work Phone: Comment on above: Reactive: Presumptive evidence of antibo dies to HCV. Follow CDC recommendations for supplemental testing.Non-Reactive: Antibodies to HCV were not detected; does not exclude the possibility of exposure to HCVReactive Results are presumptive evidence of antibodies to HCV. Follow CDC recommendations for supplemental testing.Order confirmation testing: HCV Quant by PCR testing - HCVPCR #[id number] Non Reactive: < 0.8 Equivocal: >/= 0.8 to < 1.0 Reactive: >/= 1.0The CDC requires that a reactive/equivocal HCV antibody result be sent out for confirmation. HCV Quant by PCR testing. Start: 01-06-[address] Darryl Nam MD Work Phone: Comment on above: Test Ordered: [id number] Enhanced Liver Fibr osis (ELF)ELF(TM) Score 12.88 [H ] BN Reference Range: <9.80ELF(TM) Score Interpretation:Risk cut-offs to assess the likelihood of progressionto cirrhosis and liver-related clinical events within3.9 years following baseline ELF score (IQR: 14.0-22.4months)*: Lower risk < 9.80 Mid risk 9.80 - 11.29 Higher risk >11.29Note: The ELF(TM) Score is a unitless numerical value.*Chris SA, Martin VW, Okbraulio T, et al. Selonsertibfor patients with bridging fibrosis or compensatedcirrhosis due to SCHERER: Results from randomized phaseIII STELLAR trials. J Hepatol. 2020 Dec;73(1):26-39.Performed at: - [facility] [id number] Director: Abraham Saeed MD, Phone: [phone] at: - [facility] [address] [id number] Director: Jeronimo Fontenot PhD, Phone: [phone] Start: 01-06-2025 [employer] antibody measurement Dr. Darryl Nam MD Work Phone: Comment on above: Test not performed Start: 01-06-2025 Total iron binding capacity measurement Dr. Darryl Nam MD Work Phone: Start: 12-12-2024 Urine microalbumin/creatinine ratio measurement Dr. Darryl Nam MD Work Phone: Start: 12-12-[address] Darryl Nam MD Work Phone: Comment on above: Published reference interval for apparen tly healthysubjects between age 20 and 60 is 205 - 285 umol/L and in apoorly controlled diabetic population is 228 - 563 umol/Lwith a mean of 396 umol/L.Performed at: [place] [id number] Director: Jeronimo Fontenot PhD, Phone: [phone] Start: 12-12-2024 Vitamin D, 25-hydroxy measurement Dr. [...] CT CERVICAL SPINE WO IV CONTRAST DARRYL OTERO Start: 06-18-2023 CT HEAD WO IV CONTRAST DARRYL KILLIAN Start: 06-18-2023 XR FEMUR LEFT 2+ VIEWS DARRYL NAM Start: 06-18-2023 XR PELVIS 1-2 VIEWS DARRYL NAM Start: 06-18-2023 XR SHOULDER LEFT 2+ VIEWS DARRYL NAM Start: 10-25-2021 Mammography Diane Lopez APRN-PARTNERSHIP MARKETING MANAGER Work Phone: Start: 08-12-2019 MG Breast screening Nadeem Lopez Start: 08-12-2019 Xray Bone Density, Dexa 1 or More Sites Nadeem Lopez Start: 07-26-2018 Microscopic observation [Identifier] in Cervix by Cyto stain Diane Lopez LEAF CONDITIONER-PARTNERSHIP MARKETING MANAGER Work Phone: Start: 01-13-2017 Colonoscopy [facility] Start: 03-06-2010 Esophagogastroduodenoscopy Darryl Nam Work Phone: Start: 07-02-2009 Cholecystectomy Laparoscopic Darryl Chen h Work Phone: Start: 05-24-2009 Colposcopy Cervix With Biopsy(S) With Endocervical Curettage Darryl Remi Nam Work Phone: Start: 07-03-2006 Mammography Xr [...] Lithotripsy Nadeem Lopez Procedure on neck Darryl harrison Work Phone: Plan of Treatment Date Care Activity Detail Author Start: 04-30-2030 DTaP/Tdap/Td Vaccine s (3 - Td or Tdap) DTaP/Tdap/Td Vaccines (3 - Td or Tdap) [facility] Start: 04-30-2030 Urine microalbumin profile DTaP,Tdap,Td Vaccine (3 - Td or Tdap) [facility] Start: 01-13-2027 Screening for malign ant neoplasm of colon [facility] Start: 04-11-2025 Diabetes mellitus screening Diabetes Screening [facility] Start: 09-06-2024 Yara Beth LT HIP [facility] Work Phone: Start: 03-10-2024 Follow-up encounter Suman Beth LEFT HIP FOLLOW UP [facility] Work Phone: Start: 09-29-2023 MRI Hip WO Con trast ([id number]), Sent on: [facility] Start: 06-22-2023 Behavioral Health Screening Behavioral Health Screening [facility] Start: 10-25-2022 Screening for malign ant neoplasm of breast [facility] Start: 2022 RSV High Risk: (Elde rly (60+) or Population) (1 - Risk 60-74 years 1-dose series) RSV High Risk: (Elderly (60+) or Population) (1 - Risk 60-74 years 1-dose series) [facility] Start: 2022 RSV Vaccine (1 - 1-d ose 60+ series) RSV Vaccine (1 - 1-dose 60+ series) [facility] Start: 2022 RSV Vaccine (1 - Ris k 60-74 years 1-dose series) RSV Vaccine (1 - Risk 60-74 years 1-dose series) [facility] Start: 06-22-2022 DEPRESSION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 Provider Active Team Status: Inactive Member Role Status Dates Dr. Darryl Nam MD Primary Care Provider Active Nicole Granados CANDY WRAPPING MACHINE OPERATOR, CANDY WRAPPING MACHINE OPERATOR-C Attending Provider Active Chief Information Security Officer Relationship Specialty Start Date End Date Darryl Nam MD [address] [place], [place] [address] PCP - General Family Medicine 03/20/17 Team Status: Inactive Member Role Status Dates Dr. Draryl Nam MD Primary Care Provider, Attending Isha kapadia Active Name Effective Dates (start - stop) Status Members No Information Chief Information Security Officer Relationship Specialty Start Date End Date Darryl Nam MD [address] [place] [address] PCP - General Family Medicine 03/20/17 Chief Information Security Officer Relationship Specialty Start Date End Date Darryl Nam MD [address] [place] [address] PCP - General Family Medicine 03/20/17 Chief Information Security Officer Relationship Specialty Start Date End Date Darryl Nam MD [address] [place] [address] PCP - General Family Medicine 03/20/17 Chief Information Security Officer Relationship Specialty Start Date End Date Darryl Nam MD [address] [facility] [address] [place] [address] PCP - General 07/29/18 Team Status: Active [...] January 06, 2025 End: January 06, 2025 FIDEL StewartC Attending Provider Active Start: January 06, 2025 End: January 06, 2025 Team Status: Active Member Role/Relationship Status Dates Dr. Darryl Nam MD Primary Care Provider Active Team Status: Inactive Member Role/Relationship Status Dates Dr. Darryl Nam MD Primary Care Provider Active Start: January 06, 2025 End: January 06, 2025 FIDEL StewartC Attending Provider Active Start: January 06, 2025 End: January 06, 2025 Margarita Swenson NP-C Referring Provider Active Start: January 06, 2025 End: January 06, 2025 Team Status: Inactive Member Role/Relationship Status Dates Dr. Darryl Nam MD Primary Care Provider Active Start: January 18, 2025 End: January 18, 2025 FIDEL StewartC Attending Provider Active Start: January 18, 2025 End: January 18, 2025 GONZÁLEZ Stewart Referring Provider Active Start: January 18, 2025 End: January 18, 2025 Source Comments (unrecognize d section and content) In the event this informatio n is protected by the Federal Confidentiality of Alcohol and Drug Abuse Patient Records regulations: The Federal rules restrict any use of the information to criminally investigate or prosecute any alcohol or drug abuse patient.[facility] the event this information is protected by the Federal Confidentiality of Alcohol and Drug Abuse Patient Records regulations: The Federal rules restrict any use of the information to criminally investigate or prosecute any alcohol or drug abuse patient.[facility] the event this information is protected by the Federal Confidentiality of Alcohol and Drug Abuse Patient Records regulations: The Federal rules restrict any use of the information to criminally investigate or prosecute any alcohol or drug abuse patient.[facility] the event this information is protected by the Federal Confidentiality of Alcohol and Drug Abuse Patient Records regulations: The Federal rules restrict any use of the information to criminally investigate or prosecute any alcohol or drug abuse patient.[facility] Reason for Visit (unrecogniz ed section and [...] BE BASED ON THE PRIMARY CLINICAL RECORDS. [employer]. provides no warranty or guarantee of the accuracy or completeness of information in this document.
[2025-02-09] MEDS: Lactated Ringers 1,000 ML 15 ML IV (06:22)
--- NOTE | 2025-02-09 06:30 | EGD_PTH ---
PATIENT: RANDI BETH LOC: EN U#:[id number] AGE/SX: 64/F ROOM: RE02/09/[address]: Dr. Graham Quintero DO : 1960 BED: DIS: 02/09/2025 SPEC #: [id number] RECD: 02/09/25 11:35 STATUS: PRISCILA REShabbir #: [id number] LYNSEY: 02/09/25 06:[address]: Graham Quintero DEPT: SURGICAL PATHOLOGY RECD BY: Cale Valencia ENTERED: 02/09/25 14:47 SP TYPE: EGD BIOPSY RAUDEL DR: Dr. Deni Daily MD Tissues: A - Gastric mucous membrane B - Gastric mucous membrane Procedures: Immunohistochemical Stains Surgery Specimen Level IV HEADER OPERATION: Colonoscopy, EGD with biopsy PRE-OP DIAGNOSIS: Encounter for screening colonoscopy, cirrhosis TISSUE SUBMITTED: A- Gastric antrum biopsy, B- Gastric body biopsy MICROSCOPIC DIAGNOSIS A. Stomach, gastric antrum, biopsy: * Antral mucosa with mild chronic focal active inflammation and focal intestinal metaplasia * The immunostain for Helicobacter pylori organisms is negative B. Stomach, gastric body, biopsy: * Oxyntic mucosa with mild chronic focal active inflammation * The immunostain for Helicobacter pylori organisms is negative MICROSCOPIC DESCRIPTION Slides are reviewed. All matched controls reacted appropriately. These tests were developed and their performance characteristics determined by [facility]. They may not have been cleared or approved by the U.S. Food and Drug Administration. The FDA has determined that such clearance or approval is not necessary. The above immunohistochemical/dualISH markers are viewed by the Pathologist. GROSS DESCRIPTION A. Received in fixative is one container labeled with the patient's name and designated Gastric antrum biopsy. The specimen consists of one irregular fragment of light perez soft tissue that measures 0.4 cm. The specimen is totally submitted in one cassette. B. Received in fixative is one container labeled with the patient's name and designated Gastric body biopsy. The specimen consists of two irregular fragments of light perez soft tissue that measure 0.4 and 0.6 cm. The specimen is totally submitted in one cassette. [place] 02/09/2025 CPT:90712r7,63642f3
--- NOTE | 2025-02-09 06:31 | PCM.HP.STD ---
HPI - General General Date of Admission: 02/09/25 Date of Service: 02/09/25 Chief Complaint: Anemia and cirrhosis HPI Narrative RANDI BETH, is a 64 F who presents with the Chief Complaint: levels keep dropping Oncology Prog Note 2019 58-year-old female with slowly progressive pancytopenia for several years Her anemia is most consistent with chronic liver disease, splenomegaly-hypersplenism and chronic iron deficiency anemia, improved with long-term oral iron supplement 1 tablet daily. Her leukopenia with preserved neutrophil count at this time not clinically significant. Her thrombocytopenia is moderately severe and is mostly manifested by easy bruising and gum bleeds with trauma of brushing. A bone marrow biopsy to rule out an indolent primary bone marrow disease was never done for completion of workup. 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 The cirrhosis was discovered incidentally during a cholecystectomy approximately 20 years ago, and the patient has since been monitored for liver function and platelet counts. The patient reports a history of fluctuating platelet counts, with a recent drop from 42 to 40, and experiences easy bruising when platelet levels are low. The patient has a history of fatty liver disease, which was identified as a contributing factor to the cirrhosis. There is no family history of liver disease, although a cousin has alcohol-related cirrhosis. The patient denies significant alcohol consumption since college and has no history of IV drug use or tattoos. The patient has diabetes mellitus, managed with medications including Jardiance and Ozempic, which have contributed to a weight loss of approximately 20 pounds over the past year. The patient adheres to dietary recommendations to avoid fast food and reports occasional diarrhea related to dietary fat intake and diabetes medication. The patient has a history of pneumonia, which was severe enough to cause hemoptysis and required hospitalization. She also reports a past episode of jaundice following an infection in the neck, which resolved after drainage. 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 Hearing deficit Home Medications ?Medication ?Instructions ?Recorded ?Last Taken ?Type sitagliptin phosphate 25 mg tablet 50 mg PO DAILY 07/24/20 02/07/25 History albuterol sulfate 90 mcg/actuation 1 - 2 puff inhalation Q4H PRN 02/05/21 02/09/25 04:15 History aerosol inhaler Shortness Of Breath Or Wheezing budesonide-formoterol HFA 160 2 puff inhalation BID 02/05/21 02/08/25 History mcg-4.5 mcg/actuation aerosol inhaler pantoprazole 40 mg tablet,delayed 40 mg PO DAILY 02/05/21 02/08/25 History release cholecalciferol (vitamin D3) 25 25 mcg PO QDAY 01/06/25 02/08/25 History mcg (1,000 unit) capsule peg 3350-electrolytes 236 240 ml PO Q10M #4,000 mL 01/06/25 02/09/25 00:05 Rx gram-22.74 gram-6.74 gram-5.86 gram solution (Golytely) semaglutide 1 mg/dose (4 mg/3 mL) 1 mg subcut TU 01/06/25 01/31/25 History subcutaneous pen injector (Ozempic) Allergy/AdvReac Type Severity Reaction Status Date / Time meperidine (From Demerol) AdvReac Severe Unknown Verified 02/09/25 05:55 adhesive tape AdvReac Intermediate skin Verified 02/09/25 05:55 breakdown Family History Father COPD (chronic obstructive pulmonary disease) Anemia Depression Heart disease Skin cancer Mother Heart disease Hypertension Hypocalcemia Seizures Psychiatric diagnosis Depression Epilepsy Osteoporosis Surgical History History of esophagogastroduodenoscopy (EGD) History of colonoscopy History of lithotripsy History of excision of lesion History of corrected cleft lip and palate H/O dilation and curettage H/O LEEP S/P cholecystectomy Social History Smoking Status: Never smoker alcohol intake: current details: 6 to 10 drinks a year substance use type: does not use ROS Constitutional Constitutional: Denies fatigue, fever(s), poor appetite, weight gain or weight loss Gastrointestinal Gastrointestinal: Denies belching, bloating, change in bowel habits, change in stool character, chewing difficulty, coffee ground emesis, constipation, cramping, diarrhea, dyspepsia, dysphagia, early satiety, excessive flatus, fecal incontinence, heartburn, hematemesis, hematochezia, hemorrhoids, loose stools, melena, nausea, odynophagia, rectal bleeding, tenesmus, vomiting or weight changes Vital Signs Vital Signs Vital Signs: 02/09/25 05:59 02/09/25 06:01 Temperature 97.6 F L Temperature Source Temporal Pulse Rate 91 Respiratory Rate 16 Respiratory Pattern Normal Blood Pressure 136/73 H Blood Pressure Mean 94 Blood Pressure Source Monitor Blood Pressure Position Semi-Fowlers Blood Pressure Location Left Arm Pulse Ox 98 Oxygen Delivery Method Room Air Weight Weight: 249 lb Body Mass Index (BMI) 47.0 Physical Exam Const alert, oriented x3, no apparent distress and healthy appearing General Appearance: cooperative GI normal to inspection, nondistended, normoactive bowel sounds, soft to palpation, non-tender and non-distended Percussion: normal to percussion Rectal Exam: deferred Assessment & Plan Assessment/Plan (1) Encounter for screening colonoscopy: (2) Cirrhosis: PLAN: Assessment and Plan Assessment and Plan (1) Cirrhosis: Status: Acute Plan: The plan includes performing an ultrasound of the abdomen to assess the liver's current state and conducting a series of blood tests to rule out other causes of liver disease, such as infectious or autoimmune conditions. The patient is advised to schedule an appointment with a health sanitarian for further evaluation and management. (2) Thrombocytopenia: Status: Chronic Plan: The low platelet count will be monitored, and the patient is advised to avoid medications that could exacerbate bleeding risk. Further evaluation for esophageal varices is recommended due to the risk associated with low platelet counts. (3) DM (diabetes mellitus): Status: Chronic Plan: The patient is advised to continue current diabetes management with medications such as Jardiance and Ozempic, which have contributed to weight loss. Dietary recommendations to avoid fast food are reinforced to aid in weight management and glycemic control. (4) Encounter for screening colonoscopy: Status: Acute Plan: A colonoscopy is recommended to screen for colorectal cancer, and the patient will be scheduled for this procedure along with an upper endoscopy. Orders: Orders BREANNE w/ Reflex Mult Confirm 01/06/25 D69.6 - Thrombocytopenia, unspecified, E11.9 - Type 2 diabetes mellitus without complications, K74.60 - Unspecified cirrhosis of liver Anti-Mitochondrial AB 01/06/25 D69.6 - Thrombocytopenia, unspecified, E11.9 - Type 2 diabetes mellitus without complications, K74.60 - Unspecified cirrhosis of liver Anti-Smooth Muscle ABS 01/06/25 D69.6 - Thrombocytopenia, unspecified, E11.9 - Type 2 diabetes mellitus without complications, K74.60 - Unspecified cirrhosis of liver ANCA 01/06/25 D69.6 - Thrombocytopenia, unspecified, E11.9 - Type 2 diabetes mellitus without complications, K74.60 - Unspecified cirrhosis of liver Ferritin 01/06/25 D69.6 - Thrombocytopenia, unspecified, E11.9 - Type 2 diabetes mellitus without complications, K74.60 - Unspecified cirrhosis of liver Prothrombin Time w/INR 01/06/25 D69.6 - Thrombocytopenia, unspecified, E11.9 - Type 2 diabetes mellitus without complications, K74.60 - Unspecified cirrhosis of liver AFP, Tumor Marker 01/06/25 D69.6 - Thrombocytopenia, unspecified, E11.9 - Type 2 diabetes mellitus without complications, K74.60 - Unspecified cirrhosis of liver Hepatitis A AB, Total 01/06/25 D69.6 - Thrombocytopenia, unspecified, E11.9 - Type 2 diabetes mellitus without complications, K74.60 - Unspecified cirrhosis of liver Hepatitis B Core Ab Total 01/06/25 D69.6 - Thrombocytopenia, unspecified, E11.9 - Type 2 diabetes mellitus without complications, K74.60 - Unspecified cirrhosis of liver Hepatitis B Surface Antibody 01/06/25 D69.6 - Thrombocytopenia, unspecified, E11.9 - Type 2 diabetes mellitus without complications, K74.60 - Unspecified cirrhosis of liver Hepatitis B Surface Antigen 01/06/25 D6.6 - Thrombocytopenia, unspecified, E11.9 - Type 2 diabetes mellitus without complications, K74.60 - Unspecified cirrhosis of liver Hepatitis C Antibody 01/06/25 D6.6 - Thrombocytopenia, unspecified, E11.9 - Type 2 diabetes mellitus without complications, K74.60 - Unspecified cirrhosis of liver [facility] Misc. 01/06/25 D6.6 - Thrombocytopenia, unspecified, E11.9 - Type 2 diabetes mellitus without complications, K74.60 - Unspecified cirrhosis of liver Iron+Iron Binding Capacity 01/06/25.6 - Thrombocytopenia, unspecified, E11.9 - Type 2 diabetes mellitus without complications, K74.60 - Unspecified cirrhosis of liver Ceruloplasmin 01/06/25 D6.6 - Thrombocytopenia, unspecified, E11.9 - Type 2 diabetes mellitus without complications, K74.60 - Unspecified cirrhosis of liver Alpha 1 Anti-Trypsin 01/06/25 ABD Limited w/ Elastography 01/06/25.6 - Thrombocytopenia, unspecified, E11.9 - Type 2 diabetes mellitus without complications, K74.60 - Unspecified cirrhosis of liver Basic Metabolic Profile (BMP) 01/06/25 D6.6 - Thrombocytopenia, unspecified, E11.9 - Type 2 diabetes mellitus without complications, K74.60 - Unspecified cirrhosis of liver Liver Profile 01/06/25 D69.6 - Thrombocytopenia, unspecified, E11.9 - Type 2 diabetes mellitus without complications, K74.60 - Unspecified cirrhosis of liver Immunoglobulin A 01/06/25 D6.6 - Thrombocytopenia, unspecified, E11.9 - Type 2 diabetes mellitus without complications, K74.60 - Unspecified cirrhosis of liver t-Transglutaminase IgA 01/06/25 D69.6 - Thrombocytopenia, unspecified, E11.9 - Type 2 diabetes mellitus without complications, K74.60 - Unspecified cirrhosis of liver GGTP 01/06/25 D69.6 - Thrombocytopenia, unspecified, E11.9 - Type 2 diabetes mellitus without complications, K74.60 - Unspecified cirrhosis of liver Medications: New peg 3350-electrolytes 236-22.74-6.74 -5.86 gram (Golytely) as directed for split dose bowel prep 240 mL PO Q10M 4,000 mL 0RF Discontinued hydrocodone-acetaminophen 5-325 mg Discontinued Reason: Pt no longer taking 1 TAB PO Q6H PRN 3 days PRN 12 TABLETS 0RF Pain K11.21 - Acute sialoadenitis Plan The patient is a 64-year-old female with a history of nonalcoholic cirrhosis of the liver presenting with thrombocytopenia. The cirrhosis was identified incidentally during a cholecystectomy 20 years ago, and the patient has been monitored for liver function and platelet counts since then. The thrombocytopenia is characterized by fluctuating platelet levels, with a recent decrease from 42 to 40, leading to easy bruising. The patient also has a history of fatty liver disease, which is considered a contributing factor to the cirrhosis. There is no significant family history of liver disease, although a cousin has alcohol-related cirrhosis. The patient denies significant alcohol consumption since college and has no history of IV drug use or tattoos. The patient has diabetes mellitus, managed with medications including Jardiance and Ozempic, contributing to a weight loss of approximately 20 pounds over the past year. The patient adheres to dietary recommendations to avoid fast food and reports occasional diarrhea related to dietary fat intake and diabetes medication. The patient has a history of pneumonia, which was severe enough to cause hemoptysis and required hospitalization. She also reports a past episode of jaundice following an infection in the neck, which resolved after drainage. Patient Instructions: - Schedule an ultrasound of the abdomen and blood tests as ordered. - Follow up with a health sanitarian for further evaluation and management. - Continue diabetes management with Jardiance and Ozempic, and adhere to dietary recommendations to avoid fast food. - Schedule a colonoscopy and upper endoscopy for preventative care.
--- NOTE | 2025-02-09 06:37 | PCM.PRE.AN2 ---
ASA Classification* ASA Classification ASA Classification: 3 Assessment & Plan Anesthesia* Anesthesia Assessment Anesthesia Assessment: Discussed sedation and/or anesthesia options, risks, benefits, and alternatives with patient/parents/legal guardian/POA. Questions invited. The patient/parents/legal guardian/POA seems to understand and agrees to proceed with anesthesia plan. Reviewed the physical assessment, medical history, allergy history and patient home medications list prior to surgery/procedure/anesthetic and documented any changes. Performed airway and anesthesia risk assessments. Anesthesia Type Anesthesia Type: MAC History Source History Obtained from:: Patient and Chart Anesthesia Focused Assessment* Temperature: 97.6 F Pulse Rate: 91 Blood Pressure: 136/73 Respiratory Rate: 16 Pulse Ox: 98 Oxygen Delivery Method: Room Air Airway Assessment Mouth opens: 2 cm Mallampati Score: IV Teeth Condition: Implants Neck Range of motion (ROM): Full ROM Labs Anesthesia Preop lab: CBC WBC 4.6 K/mm3 (4.4-11.0) 12/16/24 10:28 12/16/24 RBC 3.99 M/mm3 (4.2-5.4) L 12/16/24 10:28 12/16/24 Hgb 12.8 g/dL (12.0-15.0) 12/16/24 10:28 12/16/24 Hct 37.3 % (37-47) 12/16/24 10:28 12/16/24 Plt Count 44 K/mm3 (150-450) L* 12/16/24 10:28 12/16/24 CHEMISTRY Potassium 3.8 mmol/L (3.3-5.1) 01/06/25 15:40 01/06/25 Sodium 140 mmol/L (133-145) 01/06/25 15:40 01/06/25 Magnesium 1.9 mg/dL (1.6-2.6) 12/05/21 10:00 12/05/21 Phosphorus 2.9 mg/dL (2.5-4.9) 04/17/21 14:44 04/17/21 BUN 13 mg/dL (4-19) 01/06/25 15:40 01/06/25 Creatinine 1.21 mg/dL (0.70-1.20) H 01/06/25 15:40 01/06/25 Glucose 264 mg/dL (70-99) H 01/06/25 15:40 01/06/25 POC Glucose 125 mg/dL (70-110) H 07/31/20 11:19 07/31/20 TSH 2.370 uIU/mL (0.358-3.740) 05/13/24 11:16 05/13/24 COAG PT 15.1 SECONDS (11.7-14.9) H 01/06/25 15:40 01/06/25 Pre-Assessment Diagnosis/Proposed Procedure Planned Operative Procedure(s): EGD, COLONOSCOPY Anesthesia History Anesthesia History - hydramatic specialist: Anesthesia History - hydramatic specialist Hx Hospitalization No 02/07/25 15:43 Any Problems With Anesthesia Yes: PONV 02/07/25 15:43 Cholinesterase deficiency No 02/07/25 15:43 You/Your Family Experience No 02/07/25 15:43 fever (hyperthermia) with Relationship Recent Exposure to Contagious No 02/09/25 05:59 Disease Does patient have nerve No 02/07/25 15:43 stimulator Patient instructed to have device shut off --Does patient have Pacemaker No 02/09/25 06:01 or ICD? When Was Last Pacemaker Check QUESTION #4 FULL TEXT: You/Your Family Experience fever (hyperthermia) with Anesthesia Last Oral Intake Last Oral intake: Last Oral Intake NPO since 00:05 02/09/25 06:01 Meds taken in AM with sips of No 02/09/25 06:01 water? Meds patient instructed to take am of surgery PONV PONV - hydramatic specialist: PONV - hydramatic specialist Female Yes 02/07/25 15:43 HX of Motion Sickness Yes 02/07/25 15:43 HX of N/V After Surgery Yes 02/07/25 15:43 Non-Smoker Yes 02/07/25 15:43 Duration of Surgery greater No 02/07/25 15:43 than 60 minutes Number of Risk Factors 4 02/07/25 15:43 PONV Score Severe Risk 02/07/25 15:43 Height & Weight Height & Weight: Anesthesia: Height & Weight Height 5 ft 1 in 02/09/25 06:01 Weight: 112.945 kg 02/09/25 06:01 Body Mass Index (BMI) 47.0 02/09/25 06:01 Respiratory Assessment Respiratory Assessment - hydramatic specialist: Respiratory Tract Infection Hx - hydramatic specialist Hx Respiratory Tract Infection No 02/07/25 15:43 STOP Sleep Apnea STOP Sleep Apnea - hydramatic specialist: STOP Sleep Apnea - hydramatic specialist Hx Hypertension No 02/07/25 15:43 Hx Sleep Apnea Yes 02/07/25 15:43 CPAP Yes: NON-COMPLIANT 02/07/25 15:43 BIPAP No 02/07/25 15:43 Do you snore loudly (louder than talking or can be heard Do you often feel tired/ fatigued/ sleepy during daytime? Has anyone observed you stop breathing during sleep? STOP Results Positive 02/07/25 15:43 QUESTION #5 FULL TEXT : Do you snore loudly (louder than talking or can be heard through closed doors)? Tobacco Use History Tobacco Use History - hydramatic specialist: Tobacco Use History - hydramatic specialist Tobacco Use Smoking Status Never smoker 02/07/25 15:43 Hx Tobacco Use No 02/07/25 15:43 Years Smoking Packs Smoked per Day Smoking Cessation Date was within the last 15 years Hx Smoking Cessation Date Hx Smoking Cessation Counseling Hematologic Medial History Hematologic Hx - hydramatic specialist: Hematologic Medical Hx - hog tender Hx of Blood Transfusion No 02/07/25 15:43 Hx of Transfusion in last 3 No 02/07/25 15:43 Months Date of Last Transfusion (if within last 3 months) Ever experience any problems No 02/07/25 15:43 with transfusion(s)? Specify any problems Hx of Preganancy in last 3 No 02/07/25 15:43 Months Nurse Filling Out Transfusion MGRIFFITH 02/07/25 15:43 & Questions: Date: 02/07/25 02/07/25 15:43 Time: 15:46 02/07/25 15:43 Patient unable to answer at this time (ie. confused, unrespo /Reproduction History /Reproductive History - hydramatic specialist: /Reproductive Hx- hydramatic specialist Hx Now No 02/07/25 15:43 Gestational Age (in weeks): EDC: Hx Hx Para Hx Section SAB No 02/07/25 15:43 Active Medications Active Medications: Current Medications Generic Name Dose Route Start Last Admin Trade Name Freq PRN Reason Stop Dose Admin Lactated Ringer's 1,000 mls @ 15 mls/hr 02/09/25 05:45 02/09/25 06:22 IV 15 mls/hr .Q48H ANKIT Administration PFSH Medical History Wears hearing aid Wears glasses Post-menopausal Cancer Alcohol use Injury of back Injury of head and neck Dietary restriction PONV (postoperative nausea and vomiting) Gastric reflux Sleep apnea Asthma History of edema Leg cramps Non-smoker Actinic keratosis 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 Kidney stones Diabetes 1.5, managed as type 2 Back problem Allergies Colonoscopy planned 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 Hearing deficit Home Medications ?Medication ?Instructions ?Recorded ?Last Taken ?Type sitagliptin phosphate 25 mg tablet 50 mg PO DAILY 07/24/20 02/07/25 History albuterol sulfate 90 mcg/actuation 1 - 2 puff inhalation Q4H PRN 02/05/21 02/09/25 04:15 History aerosol inhaler Shortness Of Breath Or Wheezing budesonide-formoterol HFA 160 2 puff inhalation BID 02/05/21 02/08/25 History mcg-4.5 mcg/actuation aerosol inhaler pantoprazole 40 mg tablet,delayed 40 mg PO DAILY 02/05/21 02/08/25 History release cholecalciferol (vitamin D3) 25 25 mcg PO QDAY 01/06/25 02/08/25 History mcg (1,000 unit) capsule peg 3350-electrolytes 236 240 ml PO Q10M #4,000 mL 01/06/25 02/09/25 00:05 Rx gram-22.74 gram-6.74 gram-5.86 gram solution (Golytely) semaglutide 1 mg/dose (4 mg/3 mL) 1 mg subcut TU 01/06/25 01/31/25 History subcutaneous pen injector (Ozempic) Allergy/AdvReac Type Severity Reaction Status Date / Time meperidine (From Demerol) AdvReac Severe Unknown Verified 02/09/25 05:55 adhesive tape AdvReac Intermediate skin Verified 02/09/25 05:55 breakdown Family History Father COPD (chronic obstructive pulmonary disease) Anemia Depression Heart disease Skin cancer Mother Heart disease Hypertension Hypocalcemia Seizures Psychiatric diagnosis Depression Epilepsy Osteoporosis Surgical History History of esophagogastroduodenoscopy (EGD) History of colonoscopy History of lithotripsy History of excision of lesion History of corrected cleft lip and palate H/O dilation and curettage H/O LEEP S/P cholecystectomy Social History Smoking Status: Never smoker alcohol intake: current details: 6 to 10 drinks a year substance use type: does not use Review of Systems (Anesthesia) ROS Narrative System reviewed and no additional complaints, except as documented. Physical Exam Const alert and oriented x3 Orientation / Consciousness: awake Neck full ROM Resp normal respiratory effort and normal air movement Cardio regular rate and regular rhythm Neuro oriented x3 and moves all extremities
[2025-02-09] MEDS: Lidocaine 1% (5 ml sdv) 5 ML Vial 10 ML IV (06:43)
--- NOTE | 2025-02-09 07:05 | PCM.POST.ANE ---
Anesthesia: Postop Eval I Current Vital Signs Temperature: 97 F Pulse Rate: 89 Blood Pressure: 103/67 Respiratory Rate: 16 Pulse Ox: 96 Oxygen Delivery Method: Room Air Assessment Airway patent: Yes Spontaneous unlabored respirations: Yes Mental status: Awake and Calm nausea: No Vomiting: No Anesthesia Complication: No Fluid Hydration Crystalloid volume administer (ml): 100 Total IV fluid infused: 100 Progress Note Anesthesia document: Postop Eval 1 completed: Yes
--- NOTE | 2025-02-09 07:09 | POSTOPAN2_ITS ---
Anesthesia Postop Eval I Sum Postop Eval Completion status Anesthesia document: Postop Eval 1 completed: Yes Anesthesia Postop Eval I Summary Anesthesia Postop Eval I Summary: Anesthesia Postop Eval I: Assessment Summary Airway patent Yes 02/09/25 07:05 CASE [email or web address].MDTONO Spontaneous unlabored Yes 02/09/25 07:05 CASE MGR.OT respirations Mental status Awake,Calm 02/09/25 07:05 CASE MGR.MDOT nausea No 02/09/25 07:05 CASE MGR.MDOT Vomiting No 02/09/25 07:05 CASE MGR.MDOT Anesthesia Postop Eval I: Fluid Summary Crystalloid volume administer 100 02/09/25 07:05 CASE MGR.MDOT (ml) Colloids volume administered ( ml) Blood Product volume administered (ml) Total IV fluid infused 100 02/09/25 07:05 CASE MGR.DO Anesthesia Postop Eval I: Summary Notes Anesthesia Complication No 02/09/25 07:05 CASE MGR.OT Anesthesia Complication Comment: Post-operative progress note Anesthesia: Postop Eval II Evaluation Mental status: Awake and Calm Pain Level: 0 nausea: No Vomiting: No Complications Anesthesia Complication: No
--- NOTE | 2025-02-09 07:09 | PCM.POSTANE2 ---
Anesthesia Postop Eval I Sum Postop Eval Completion status Anesthesia document: Postop Eval 1 completed: Yes Anesthesia Postop Eval I Summary Anesthesia Postop Eval I Summary: Anesthesia Postop Eval I: Assessment Summary Airway patent Yes 02/09/25 07:05 MULTIMEDIA [email or web address] Spontaneous unlabored Yes 02/09/25 07:05 MULTIMEDIA [email or web address].OT respirations Mental status Awake,Calm 02/09/25 07:05 MULTIMEDIA [email or web address].MDOT nausea No 02/09/25 07:05 MULTIMEDIA [email or web address].MDOT Vomiting No 02/09/25 07:05 MULTIMEDIA [email or web address].[email or web address] Anesthesia Postop Eval I: Fluid Summary Crystalloid volume administer 100 02/09/25 07:05 MULTIMEDIA [email or web address].MDOT (ml) Colloids volume administered ( ml) Blood Product volume administered (ml) Total IV fluid infused 100 02/09/25 07:05 MULTIMEDIA [email or web address].DO Anesthesia Postop Eval I: Summary Notes Anesthesia Complication No 02/09/25 07:05 MULTIMEDIA [email or web address] Anesthesia Complication Comment: Post-operative progress note Anesthesia: Postop Eval II Evaluation Mental status: Awake and Calm Pain Level: 0 nausea: No Vomiting: No Complications Anesthesia Complication: No
--- NOTE | 2025-02-09 07:17 | OP.EGD_ITS ---
Patient Name: Yara Palomares Procedure Date: 02/09/2025 6:03 AM Date of : 1960 Age: 64 Procedure: Upper GI endoscopy Indications: Iron deficiency anemia, Cirrhosis with suspected esophageal varices Providers: Graham Quintero DO Referring MD: Deni Daily Medicines: Monitored Anesthesia Care Patient Profile: This is a 64 year old female. Refer to note in patient chart for documentation of history and physical. Patient has symptoms of acute dyspepsia and chronic nausea. Complications: No immediate complications. Procedure: Pre-Anesthesia Assessment: - Prior to the procedure, a History and Physical was performed, and patient medications and allergies were reviewed. The patient is competent. The risks and benefits of the procedure and the sedation options and risks were discussed with the patient. All questions were answered and informed consent was obtained. Patient identification and proposed procedure were verified by the physician in the pre-procedure area. Mental Status Examination: alert and oriented. Airway Examination: normal oropharyngeal airway and neck mobility. Respiratory Examination: clear to auscultation. CV Examination: normal. Prophylactic Antibiotics: The patient does not require prophylactic antibiotics. Prior Anticoagulants: The patient has taken no anticoagulant or antiplatelet agents except for NSAID medication. ASA Grade Assessment: II - A patient with mild systemic disease. After reviewing the risks and benefits, the patient was deemed in satisfactory condition to undergo the procedure. The anesthesia plan was to use monitored anesthesia care (MAC). Immediately prior to administration of medications, the patient was re-assessed for adequacy to receive sedatives. The heart rate, respiratory rate, oxygen saturations, blood pressure, adequacy of pulmonary ventilation, and response to care were monitored throughout the procedure. The physical status of the patient was re-assessed after the procedure. After obtaining informed consent, the endoscope was passed under direct vision. Throughout the procedure, the patient's blood pressure, pulse, and oxygen saturations were monitored continuously. The Colonoscope was introduced through the mouth, and advanced to the fourth part of the duodenum. Small bowel enteroscopy was deemed necessary. The upper GI endoscopy was accomplished without difficulty. The patient tolerated the procedure well. Scope In: 6:47:50 AM Scope Out: 6:50:45 AM Total Procedure Duration Time 0 hours 2 minutes 55 seconds Findings: Small (< 5 mm) varices were found in the lower third of the esophagus. Mild portal hypertensive gastropathy was found in the gastric body. Biopsies were taken with a cold forceps for histology. Verification of patient identification for the specimen was done. Estimated blood loss was minimal. Biopsies were taken with a cold forceps for Helicobacter pylori testing. Verification of patient identification for the specimen was done. Estimated blood loss was minimal. A single 6 mm sessile polyp with no stigmata of recent bleeding was found in the gastric antrum. The polyp was removed with a cold biopsy forceps. Resection and retrieval were complete. Verification of patient identification for the specimen was done. Estimated blood loss was minimal. No gross lesions were noted in the entire examined duodenum. Impression: - Small (< 5 mm) esophageal varices. - Portal hypertensive gastropathy. Biopsied. - A single gastric polyp. Resected and retrieved. - No gross lesions in the entire examined duodenum. Recommendation: - Discharge patient to home. - Resume previous diet. - Continue present medications. - Await pathology results. Procedure Code(s): --- Professional --- 97110, Small intestinal endoscopy, enteroscopy beyond second portion of duodenum, not including ileum; with biopsy, single or multiple CPT copyright 2021 [employer]. All rights reserved. The codes documented in this report are preliminary and upon resolution agent review may be revised to meet current compliance requirements. Graham Quintero DO 02/09/2025 7:16:48 AM This report has been signed electronically. Number of Addenda: 0 Note Initiated On: 02/09/2025 6:03 AM
--- NOTE | 2025-02-09 07:17 | OP.PROVAT_ITS ---
02/09/2025 Deni Daily [address] [place] [address] Re : Upper GI endoscopy procedure for Yara Palomares Dear Dr. Daily This procedure was performed on January. My impressions and recommendations are as follows: Impressions : - Small (< 5 mm) esophageal varices. - Portal hypertensive gastropathy. Biopsied. - A single gastric polyp. Resected and retrieved. - No gross lesions in the entire examined duodenum. Recommendations : - Discharge patient to home. - Resume previous diet. - Continue present medications. - Await pathology results. My findings are described in the full procedure note, which is enclosed. If I can be of further assistance, please feel free to contact me at . Sincerely, Graham Quintero, 02/09/2025 7:16:48 AM This report has been signed electronically.
--- NOTE | 2025-02-09 07:19 | OP.PROVAT_ITS ---
02/09/2025 Deni Daily [address] [place] [address] Re : Colonoscopy procedure for Yara Palomares Dear Dr. Daily This procedure was performed on January. My impressions and recommendations are as follows: Impressions : - Diverticulosis in the recto-sigmoid colon and in the sigmoid colon. - The examined portion of the ileum was normal. - No specimens collected. Recommendations : - Discharge patient to home. - Resume previous diet. - Continue present medications. - Repeat colonoscopy in 5 years for surveillance. My findings are described in the full procedure note, which is enclosed. If I can be of further assistance, please feel free to contact me at . Sincerely, Graham Quintero, 02/09/2025 7:18:53 AM This report has been signed electronically.
--- NOTE | 2025-02-09 07:19 | OP.COLON_ITS ---
Patient Name: Yara Palomares Procedure Date: 02/09/2025 6:50 AM Date of : 1960 Age: 64 Procedure: Colonoscopy Indications: Screening for colorectal malignant neoplasm Providers: Graham Quintero DO Referring MD: Deni Daily Medicines: Monitored Anesthesia Care Patient Profile: This is a 64 year old female. Refer to note in patient chart for documentation of history and physical. Patient has symptoms of acute dyspepsia and chronic nausea. Last Colonoscopy: several years ago. Complications: No immediate complications. Procedure: Pre-Anesthesia Assessment: - Prior to the procedure, a History and Physical was performed, and patient medications and allergies were reviewed. The patient is competent. The risks and benefits of the procedure and the sedation options and risks were discussed with the patient. All questions were answered and informed consent was obtained. Patient identification and proposed procedure were verified by the physician in the pre-procedure area. Mental Status Examination: alert and oriented. Airway Examination: normal oropharyngeal airway and neck mobility. Respiratory Examination: clear to auscultation. CV Examination: normal. Prophylactic Antibiotics: The patient does not require prophylactic antibiotics. Prior Anticoagulants: The patient has taken no anticoagulant or antiplatelet agents except for NSAID medication. ASA Grade Assessment: II - A patient with mild systemic disease. After reviewing the risks and benefits, the patient was deemed in satisfactory condition to undergo the procedure. The anesthesia plan was to use monitored anesthesia care (MAC). Immediately prior to administration of medications, the patient was re-assessed for adequacy to receive sedatives. The heart rate, respiratory rate, oxygen saturations, blood pressure, adequacy of pulmonary ventilation, and response to care were monitored throughout the procedure. The physical status of the patient was re-assessed after the procedure. After I obtained informed consent, the scope was passed under direct vision. Throughout the procedure, the patient's blood pressure, pulse, and oxygen saturations were monitored continuously. The Colonoscope was introduced through the anus and advanced to the terminal ileum. The colonoscopy was performed without difficulty. The patient tolerated the procedure well. The quality of the bowel preparation was good. The terminal ileum, ileocecal valve, appendiceal orifice, and rectum were photographed. Scope In: 6:52:29 AM Scope Withdrawal Time 0 hours 8 minutes 22 seconds Scope Out: 7:03:54 AM Total Procedure Duration Time 0 hours 11 minutes 25 seconds Findings: The perianal and digital rectal examinations were normal. Multiple small-mouthed diverticula were found in the recto-sigmoid colon and sigmoid colon. The terminal ileum appeared normal. No additional abnormalities were found on retroflexion. Impression: - Diverticulosis in the recto-sigmoid colon and in the sigmoid colon. - The examined portion of the ileum was normal. - No specimens collected. Recommendation: - Discharge patient to home. - Resume previous diet. - Continue present medications. - Repeat colonoscopy in 5 years for surveillance. Procedure Code(s): --- Professional --- 70773, Colonoscopy, flexible; diagnostic, including collection of specimen(s) by brushing or washing, when performed (separate procedure) CPT copyright 2021 [employer]. All rights reserved. The codes documented in this report are preliminary and upon career development manager review may be revised to meet current compliance requirements. Graham Quintero DO 02/09/2025 7:18:53 AM This report has been signed electronically. Number of Addenda: 0 Note Initiated On: 02/09/2025 6:50 AM
== END 2025-02-09 07:55 | disposition home or self-care (01) ==
LOC: EN 05:11 → AC 05:11
PROVIDERS: PCP Family Medicine; Referring Provider Family Medicine; Visit Provider Internal Medicine Gastroenterology
PROC: 0DJD8ZZ Inspection of Lower Intestinal Tract, Via Natural or Artificial Opening Endoscopic (ICD-10-PCS; CPT 45378; principal; 2025-02-09 06:25)
DX: Z12.11 Encounter for screening for malignant neoplasm of colon (principal); I85.10 Secondary esophageal varices without bleeding; K76.6 Portal hypertension; K74.60 Unspecified cirrhosis of liver; E11.9 Type 2 diabetes mellitus without complications; K31.89 Other diseases of stomach and duodenum; K29.50 Unspecified chronic gastritis without bleeding; K57.30 Diverticulosis of large intestine without perforation or abscess without bleeding; K31.7 Polyp of stomach and duodenum; D50.9 Iron deficiency anemia, unspecified; D69.6 Thrombocytopenia, unspecified; K21.9 Gastro-esophageal reflux disease without esophagitis; G47.30 Sleep apnea, unspecified; J45.909 Unspecified asthma, uncomplicated; Z90.49 Acquired absence of other specified parts of digestive tract; Z79.84 Long term (current) use of oral 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 drugs; Z79.85 Long-term (current) use of injectable non-insulin antidiabetic drugs; Z79.51 Long term (current) use of inhaled steroids; Z79.899 Other long term (current) drug therapy
CPT/HCPCS: 44361; 45378; 82962; 88305; 88342

== ENCOUNTER → 2025-03-28 | Outpatient (CLI) | payer BC, SELFPAY ==
[2025-03-28 16:51] LABS: Hematocrit 36.6 % (37-47); Hemoglobin 12.5 g/dL (12.0-15.0); Immature Granulocytes Count 0.020 X10^3/uL (0.0-0.0); Mean Corp Hgb Conc 34.2 g/dL (32-36); Mean Corpuscular Volume 94.1 fL (81-99); Mean Platelet Vol. 11.0 fl (6.2-12.0); NRBC Flagged by Analyzer 0 % (0-5); POSITIVE COUNT YES; Platelet Count 43 K/mm3 (150-450); RBC Distribution Width CV 14.1 % (11.6-14.6); RBC Distribution Width SD 47.8 fl (35.1-43.9); Red Blood Count 3.89 M/mm3 (4.2-5.4); White Blood Count 3.8 K/mm3 (4.4-11.0)
[2025-03-28 17:05] LABS: Prothrombin Time (Protime)PT. 15.0 SECONDS (11.7-14.9)
[2025-03-28 17:24] LABS: AST(SGOT) 35 U/L (<=31); Alanine Aminotransfer ALT/SGPT 18 U/L (<=34); Albumin, Serum 3.2 g/dL (3.4-4.8); Alkaline Phosphatase 99 U/L (35-104); Anion Gap 10 (5-15); BUN 18 mg/dL (4-19); BUN/Creat Ratio 15.8 RATIO (10-20); Bilirubin, Direct 0.61 mg/dL (0.00-0.30); Calcium,Total 9.3 mg/dL (7.6-11.0); Carbon Dioxide 22.2 mmol/L (21.0-32.0); Chloride 111 mmol/L (98-108); Globulin 2.7 g/dL (2.2-4.2); Glucose 115 mg/dL (70-99); Potassium 4.2 mmol/L (3.3-5.1)
== END | disposition home or self-care (01) ==
LOC: LAB 15:22
PROVIDERS: PCP Family Medicine; Referring Provider Family Medicine; Visit Provider Nurse Practitioner Acute Care
DX: K74.60 Unspecified cirrhosis of liver (principal); D69.6 Thrombocytopenia, unspecified
CPT/HCPCS: 36415; 80048; 80076; 85025; 85610